=== PATIENT | male | born 1950 | race Caucasian/White ===

== ENCOUNTER → 2017-11-10 12:13 | Outpatient (CLI) | payer MEDICARE, SELFPAY ==
[2017-11-10 12:47] LABS: Abs Immature Grans 0.03 k/cumm (0.0-0.09); Absolute Basophil Count 0.01 k/cumm (0.0-0.2); Absolute Eosinophil Count 0.19 k/cumm (0.0-0.7); Absolute Lymphocyte Count 1.68 k/cumm (1.2-3.4); Absolute Monocyte Count 0.83 k/cumm (0.11-0.7); Absolute Neutrophil Count 5.58 k/cumm (1.2-6.7); Basophils % 0.1; Eosinophils % 2.3; HCT 46.5 % (40.0-50.0); HGB 15.8 g/dL (13.5-17.5); Immature Grans % 0.4; Lymphocytes % 20.2; Mean Corpuscular Hemoglobin 31.5 pg (27.0-33.0); Mean Corpuscular Volume 92.6 fL (80-95); Mean Platelet Volume 11.7 fL (8.0-11.0); Platelet Count 171 x1000/uL (130-400); RBC 5.02 m/cumm (4.50-6.00); RBC Distribution Width 13.6 % (11.8-14.1); White Blood Cell Count 8.32 k/cumm (4.4-10.8)
[2017-11-10 12:57] LABS: VALPROIC ACID 107.4 ug/mL (50-100)
[2017-11-10 13:45] LABS: ALT 54 U/L (12-78); AST 39 U/L (15-37); Albumin 3.6 g/dL (3.4-5.0); Alkaline Phosphatase 72 U/L (46-116); Anion Gap 9.9 mmol/L (3-11); BUN 17 mg/dL (7-18); Bilirubin, Total 0.3 mg/dL (0.2-1.0); CO2 26.1 mmol/L (21.0-32.0); CREATININE 1.24 mg/dL (0.70-1.30); Calcium 9.3 mg/dL (8.5-10.1); Chloride 103 mmol/L (98-107); Estimated GFR 58.51 (mL/min/1.73m2); Glucose 135 mg/dL (70-100); Potassium 4.3 mmol/L (3.5-5.1); Sodium 139 mmol/L (136-145); Total Protein 6.9 g/dL (6.4-8.2)
== END ==
PROVIDERS: Nurse Practitioner Psychiatric/Mental Health; PCP Family Medicine; Visit Provider Nurse Practitioner Family
DX: F31.13 Bipolar disorder, current episode manic without psychotic features, severe (principal); Z51.81 Encounter for therapeutic drug level monitoring; Z79.899 Other long term (current) drug therapy
CPT/HCPCS: 36415; 80053; 80164; 85025

== ENCOUNTER → 2017-11-26 09:47 | Outpatient (CLI) | payer MEDICARE, SELFPAY ==
[2017-11-26 10:16] LABS: VALPROIC ACID 65.1 ug/mL (50-100)
[2017-11-26 10:32] LABS: ALT 54 U/L (12-78); AST 33 U/L (15-37)
== END ==
PROVIDERS: PCP Family Medicine; Visit Provider Nurse Practitioner Family
DX: F31.13 Bipolar disorder, current episode manic without psychotic features, severe (principal); Z51.81 Encounter for therapeutic drug level monitoring; Z79.899 Other long term (current) drug therapy
CPT/HCPCS: 36415; 80164; 84450; 84460

== ENCOUNTER 2018-03-10 08:50 | Outpatient (CLI) | payer MEDICARE, SELFPAY ==
[2018-03-10 09:32] LABS: Abs Immature Grans 0.04 k/cumm (0.0-0.09); Absolute Basophil Count 0.03 k/cumm (0.0-0.2); Absolute Eosinophil Count 0.28 k/cumm (0.0-0.7); Absolute Lymphocyte Count 2.04 k/cumm (1.2-3.4); Absolute Monocyte Count 0.87 k/cumm (0.11-0.7); Basophils % 0.4; Eosinophils % 3.7; HCT 43.6 % (40.0-50.0); HGB 14.8 g/dL (13.5-17.5); Immature Grans % 0.5; Mean Corp. HGB Concentration 33.9 g/dL (32.0-36.0); Mean Corpuscular Hemoglobin 32.7 pg (27.0-33.0); Mean Corpuscular Volume 96.2 fL (80-95); Mean Platelet Volume 11.2 fL (8.0-11.0); Monocytes % 11.5; Neutrophils % 56.9; Platelet Count 123 x1000/uL (130-400); RBC 4.53 m/cumm (4.50-6.00); RBC Distribution Width 13.6 % (11.8-14.1); White Blood Cell Count 7.56 k/cumm (4.4-10.8)
[2018-03-10 09:45] LABS: VALPROIC ACID 99.7 ug/mL (50-100)
[2018-03-10 10:28] LABS: ALT 49 U/L (12-78); AST 34 U/L (15-37); Albumin 3.2 g/dL (3.4-5.0); Alkaline Phosphatase 62 U/L (46-116); Anion Gap 7.9 mmol/L (3-11); BUN 17 mg/dL (7-18); Bilirubin, Total 0.4 mg/dL (0.2-1.0); CO2 28.1 mmol/L (21.0-32.0); CREATININE 1.33 mg/dL (0.70-1.30); Calcium 8.9 mg/dL (8.5-10.1); Chloride 105 mmol/L (98-107); Glucose 85 mg/dL (70-100); Sodium 141 mmol/L (136-145); Total Protein 6.5 g/dL (6.4-8.2)
== END 2018-03-10 09:10 ==
PROVIDERS: PCP Family Medicine; Visit Provider Nurse Practitioner Family
DX: F31.13 Bipolar disorder, current episode manic without psychotic features, severe (principal); Z51.81 Encounter for therapeutic drug level monitoring; Z79.899 Other long term (current) drug therapy
CPT/HCPCS: 36415; 80053; 80164; 85025

== ENCOUNTER 2018-04-14 12:01 | Outpatient (CLI) | payer MEDICARE, SELFPAY ==
[2018-04-14 13:57] LABS: VALPROIC ACID 77.6 ug/mL (50-100)
== END 2018-04-14 12:21 ==
PROVIDERS: PCP Family Medicine; Visit Provider Nurse Practitioner Family
DX: F31.13 Bipolar disorder, current episode manic without psychotic features, severe (principal); Z79.899 Other long term (current) drug therapy; Z51.81 Encounter for therapeutic drug level monitoring
CPT/HCPCS: 36415; 80164

== ENCOUNTER 2018-11-10 13:32 | Outpatient (CLI) | payer MEDICARE, SELFPAY ==
[2018-11-10 14:10] LABS: VALPROIC ACID 101.2 ug/mL (50-100)
[2018-11-10 14:11] LABS: Abs Immature Grans 0.05 k/cumm (0.0-0.09); Absolute Basophil Count 0.03 k/cumm (0.0-0.2); Absolute Eosinophil Count 0.25 k/cumm (0.0-0.7); Absolute Lymphocyte Count 2.12 k/cumm (1.2-3.4); Absolute Monocyte Count 1.02 k/cumm (0.11-0.7); Basophils % 0.3; Eosinophils % 2.5; HCT 46.2 % (40.0-50.0); HGB 15.5 g/dL (13.5-17.5); Immature Grans % 0.5; Lymphocytes % 21.5; Mean Corp. HGB Concentration 33.5 g/dL (32.0-36.0); Mean Corpuscular Volume 95.5 fL (80-95); Mean Platelet Volume 11.6 fL (8.0-11.0); Monocytes % 10.3; Neutrophils % 64.9; Platelet Count 159 x1000/uL (130-400); RBC 4.84 m/cumm (4.50-6.00); RBC Distribution Width 13.5 % (11.8-14.1); White Blood Cell Count 9.87 k/cumm (4.4-10.8)
[2018-11-10 15:03] LABS: ALT 48 U/L (12-78); AST 36 U/L (15-37); Albumin 3.6 g/dL (3.4-5.0); Alkaline Phosphatase 78 U/L (46-116); Anion Gap 7.4 mmol/L (3-11); BUN 18 mg/dL (7-18); Bilirubin, Total 0.5 mg/dL (0.2-1.0); CO2 28.6 mmol/L (21.0-32.0); CREATININE 1.36 mg/dL (0.70-1.30); Calcium 9.1 mg/dL (8.5-10.1); Calculated LDL 147 mg/dL; Chloride 105 mmol/L (98-107); Cholesterol 226 mg/dL (50-200); Estimated GFR 52.43 (mL/min/1.73m2); Glucose 82 mg/dL (70-100); HDL Cholesterol 48 mg/dL (40-60); Potassium 4.5 mmol/L (3.5-5.1); Sodium 141 mmol/L (136-145); TSH 1.84 uIU/mL (0.36-3.74); Total Protein 6.8 g/dL (6.4-8.2); Triglyceride 156 mg/dL (30-150)
== END 2018-11-10 13:52 ==
PROVIDERS: PCP Family Medicine; Visit Provider Nurse Practitioner Family
DX: F31.13 Bipolar disorder, current episode manic without psychotic features, severe (principal); Z79.899 Other long term (current) drug therapy; Z51.81 Encounter for therapeutic drug level monitoring
CPT/HCPCS: 36415; 80053; 80061; 83721; 80164; 84443; 85025

== ENCOUNTER → 2018-11-21 13:49 | Outpatient (BNVA) | payer MEDICARE, SELFPAY | PROVIDERS: PCP Family Medicine; Referring Provider Family Medicine; Visit Provider Physical Therapy Assistant | DX: Z12.11 Encounter for screening for malignant neoplasm of colon (principal); Z86.010 Personal history of colon polyps ==

== ENCOUNTER 2018-11-30 13:55 | Outpatient (CLI) | payer MEDICARE, SELFPAY ==
[2018-11-30 14:22] LABS: Abs Immature Grans 0.03 k/cumm (0.0-0.09); Absolute Basophil Count 0.04 k/cumm (0.0-0.2); Absolute Eosinophil Count 0.32 k/cumm (0.0-0.7); Absolute Lymphocyte Count 2.08 k/cumm (1.2-3.4); Absolute Monocyte Count 0.88 k/cumm (0.11-0.7); Basophils % 0.4; Eosinophils % 3.6; HCT 46.9 % (40.0-50.0); HGB 15.7 g/dL (13.5-17.5); Immature Grans % 0.3; Lymphocytes % 23.2; Mean Corp. HGB Concentration 33.5 g/dL (32.0-36.0); Mean Corpuscular Volume 95.7 fL (80-95); Mean Platelet Volume 11.5 fL (8.0-11.0); Monocytes % 9.8; Neutrophils % 62.7; Platelet Count 183 x1000/uL (130-400); RBC Distribution Width 13.4 % (11.8-14.1); White Blood Cell Count 8.95 k/cumm (4.4-10.8)
[2018-11-30 14:34] LABS: VALPROIC ACID 65.5 ug/mL (50-100)
[2018-11-30 14:56] LABS: ALT 46 U/L (16-63); AST 27 U/L (15-37); Albumin 3.6 g/dL (3.4-5.0); Alkaline Phosphatase 74 U/L (46-116); Anion Gap 8.5 mmol/L (3-11); BUN 13 mg/dL (7-18); Bilirubin, Total 0.6 mg/dL (0.2-1.0); CO2 28.5 mmol/L (21.0-32.0); CREATININE 1.36 mg/dL (0.70-1.30); Calcium 9.1 mg/dL (8.5-10.1); Chloride 108 mmol/L (98-107); Estimated GFR 52.27 (mL/min/1.73m2); Glucose 91 mg/dL (70-100); Potassium 4.7 mmol/L (3.5-5.1); Sodium 145 mmol/L (136-145); Total Protein 6.8 g/dL (6.4-8.2)
== END 2018-11-30 14:15 ==
PROVIDERS: PCP Family Medicine; Visit Provider Nurse Practitioner Family
DX: F31.13 Bipolar disorder, current episode manic without psychotic features, severe (principal); Z51.81 Encounter for therapeutic drug level monitoring; Z79.899 Other long term (current) drug therapy
CPT/HCPCS: 36415; 80053; 85027; 80164; 85025

== ENCOUNTER 2018-12-08 08:03 | Day surgery (SDC) | payer MEDICARE, SELFPAY ==
[2018-12-08 08:32] VITALS: BP 140/80; PULSE 67; RESP 16; TEMP 36.3; O2SAT 98
[2018-12-08 08:50] VITALS: BP 140/80; PULSE 67; RESP 16; TEMP 36.3; O2SAT 98
[2018-12-08] MEDS: Lactated Ringers 1,000 ML 80 ML IV (09:10)
--- NOTE | 2018-12-08 11:15 | W.PM.DSUDISC ---
Discharge Plan Disposition Patient Disposition: HOME Condition: Good Discharge Details Reason For Visit: scope of colon Attending Provider: Chastity Weller Primary Care Provider: Jose Eduardo Barboza Home Meds and New Rx's Prescriptions: Continued quetiapine 300 mg tablet 300 mg PO HS RF: 0 quetiapine 400 mg tablet 400 mg PO HS Qty: 90 RF: 3 sildenafil (antihypertensive) 20 mg tablet 20 - 100 mg PO DAILY PRN (Reason: sexual activity) Qty: 30 RF: 5 Vraylar 1.5 mg capsule 1.5 mg PO HS RF: 0 divalproex 500 mg tablet extended release 24 hr 500 mg PO BID RF: 0 amlodipine 5 mg tablet 5 mg PO DAILY Qty: 90 RF: 3 Discontinued polyethylene glycol 3350 17 gram/dose powder 238 g PO ONCE Qty: 238 RF: 0 bisacodyl [Dulcolax (bisacodyl)] 5 mg tablet,delayed release (DR/EC) 5 mg PO ONCE Qty: 4 RF: 0 Discharge Instructions Instructions: Diverticulosis (ED), High Fiber Diet (ED) Additional Instructions: Findings: minor diverticula no polyps high fiber diet and avoid straing to move bowels Follow up: as needed do not require addition colon scopes unless you are having problems Please call if you develop: fevers >101.5 Nausea or Vomiting Abdominal pain that is not transient DAY SURGERY UNIT POST COLONOSCOPY INSTRUCTIONS 1. Because there will be medication in your system for the next 24 hours, you may feel a little sleepy. Your coordination will be affected. Therefore: a. Do not drive or operate dangerous equipment for 24 hours. b. Do not drink alcohol beverages for 24 hours (not even beer). c. Plan to go home and rest for the day. 2. Generally there are no restrictions on your activity after a day or so has gone by, but you may feel a bit fatigued for a few days. 3 After you arrive home you may have a light meal and return to a normal diet as you can tolerate it without feeling sick to your stomach. 4. After surgery, you may feel pain or discomfort. This should be only transient, but if it persists please contact your doctor. 5. If there are any questions regarding the findings of your procedure, please feel free to contact your doctor. 6. If you are unable to contact your doctor with a problem, contact the hospital at [phone]. 7. Continue all your regular medications unless directed otherwise. I understand the above instructions and have no questions. Signature of Patient or Responsible Adult Escort Date/Time Name of Responsible Adult Escort Signature of Nurse Date/Time Stand Alone Forms: Yanet Rivera (DSU) Discharge Orders Discharge Orders: Discharge Order (Routine); Ordered 12/08/18 Ordered By: Chastity Weller
--- NOTE | 2018-12-08 11:18 | W.COLOREPORT ---
Date of service: 12/08/18 Time of Service: 11:19 Colonoscopy Report Date of procedure: 12/08/18 Pre-op diagnosis general: screen Post-op diagnosis procedure note: other (minor divertic in sigmoid colon ) Procedure: CE Surgeon: Chastity Weller Anesthesia proc note operative: GETA Estimated blood loss (mL): 0 Pathology: none sent Complications: None Disposition: same day Retraction Time: 8 mins Procedure Description: Informed consent was obtained, explaining the risks and benefits of the procedure, including but not limited to bleeding, infection, perforation, aspiration, complications from the anesthesia. DESCRIPTION OF PROCEDURE: The patient was brought to the endoscopy suite and placed in left lateral decubitus position. Anesthesia was administered per the Department of Anesthesia, with constant monitoring of all vital signs. Digital rectal exam was performed prior to beginning the procedure and revealed no anal or rectal pathology. The previously lubricated Olympus was inserted in the rectum and insufflation was begun. The scope was passed up through the recto-sigmoid valves, through the sigmoid and transverse, down the ascending and the cecum was achieved at 90 cm. Good prep was noted. The scope was then withdrawn. There were few small scattered diverticula confined to the sigmoid colon w/ no signs of active bleeding or infection. The patient tolerated the procedure without complicated and transferred to the recovery room in stable condition. Colonoscopy should not be repeated unless pt is having problems.
[2018-12-08 11:55] VITALS: BP 125/62; PULSE 58; RESP 18; TEMP 36.2; O2SAT 98
== END 2018-12-08 12:35 | disposition home or self-care (01) ==
PROVIDERS: PCP Family Medicine; Visit Provider Surgery
PROC: 0DJD8ZZ Inspection of Lower Intestinal Tract, Via Natural or Artificial Opening Endoscopic (ICD-10-PCS; CPT 45378; principal; 2018-12-08 09:15)
DX: Z12.11 Encounter for screening for malignant neoplasm of colon (principal); Z87.19 Personal history of other diseases of the digestive system; K57.30 Diverticulosis of large intestine without perforation or abscess without bleeding; I10 Essential (primary) hypertension
CPT/HCPCS: 45378

== ENCOUNTER 2019-09-01 09:25 | Outpatient (CLI) | payer MEDICARE, SELFPAY ==
--- NOTE | 2019-09-01 13:20 | DI.CT_ITS ---
EXAM: CT SINUS WO CLINICAL HISTORY: sinus congestion, chronic, J34.89. Evaluate for sinusitis. TECHNIQUE: Imaging Protocol: Axial computed tomography images with coronal and sagittal reformatted images were created and reviewed. COMPARISON: No exams were available for comparison FINDINGS: Frontal sinuses: Normally aerated. Ethmoid air cells: Normally aerated. Maxillary sinuses: Normally aerated. Sphenoid sinus: Normally aerated. Ostiomeatal complexes: Patent. Osseous nasal septum: Slightly deviated toward the left. The nasal cavity is clear.. Visualized regional soft tissues: No acute findings. Orbits: Unremarkable. Bones: Unremarkable. Mastoid Air Cells: Normally aerated. The brain is grossly normal as visualized. IMPRESSION: No evidence acute or chronic sinusitis.. RADIATION DOSE DELIVERED: 138.73mGy.cm Total DLP DATA REPOSITORY: All CT scans at this facility are submitted to the National Radiology Data Registry (NRDR) Dose Index Registry (DIR) with the [employer] (ACR). RADIATION OPTIMIZATION: All CT scans at this facility use at least one of these dose optimization te chniques: automated exposure control; mA and/or kV adjustment per patient size (includes targeted exa ms where dose is matched to clinical indication); or iterative reconstruction.
== END 2019-09-01 09:45 ==
PROVIDERS: PCP Family Medicine; Visit Provider Family Medicine
DX: J34.89 Other specified disorders of nose and nasal sinuses (principal); J34.2 Deviated nasal septum
CPT/HCPCS: 70486

== ENCOUNTER 2019-09-08 03:13 | Outpatient (CLI) | payer MEDICARE, SELFPAY ==
[2019-09-08 07:54] LABS: Abs Immature Grans 0.08 k/cumm (0.0-0.09); Absolute Basophil Count 0.02 k/cumm (0.0-0.2); Absolute Lymphocyte Count 2.78 k/cumm (1.2-3.4); Absolute Monocyte Count 1.59 k/cumm (0.11-0.7); Basophils % 0.2; Eosinophils % 4.1; HGB 15.9 g/dL (13.5-17.5); Immature Grans % 0.7 %; Mean Corp. HGB Concentration 33.8 g/dL (32.0-36.0); Mean Corpuscular Hemoglobin 31.8 pg (27.0-33.0); Mean Platelet Volume 11.4 fL (8.0-11.0); Monocytes % 13.7; Neutrophils % 57.3; Platelet Count 217 x1000/uL (130-400); RBC Distribution Width 13.7 % (11.8-14.1); White Blood Cell Count 11.59 k/cumm (4.4-10.8)
[2019-09-08 07:56] LABS: VALPROIC ACID 71.8 ug/mL (50-100)
[2019-09-08 07:59] LABS: Absolute Eosinophil Count 0.48 k/cumm (0.0-0.7); Absolute Neutrophil Count 6.64 k/cumm (1.2-6.7)
[2019-09-08 08:40] LABS: Diff Comment Agrees w/ Instrument; RBC Morphology Normal
[2019-09-08 09:32] LABS: ALT 51 U/L (16-63); AST 21 U/L (15-37); Albumin 3.7 g/dL (3.4-5.0); Alkaline Phosphatase 59 U/L (46-116); Anion Gap 8.2 mmol/L (3-11); BUN 16 mg/dL (7-18); Bilirubin, Total 0.4 mg/dL (0.2-1.0); CO2 25.8 mmol/L (21.0-32.0); CREATININE 1.22 mg/dL (0.70-1.30); Calcium 8.9 mg/dL (8.5-10.1); Calculated LDL 115 mg/dL (<100); Chloride 107 mmol/L (98-107); Cholesterol 213 mg/dL (<200); Estimated GFR 59.25 (mL/min/1.73m2); Glucose 93 mg/dL (74-106); HDL Cholesterol 57 mg/dL (40-60); Potassium 4.3 mmol/L (3.5-5.1); Sodium 141 mmol/L (136-145); TSH 1.23 uIU/mL (0.36-3.74); Total Protein 6.6 g/dL (6.4-8.2); Triglyceride 205 mg/dL (<150)
== END 2019-09-08 03:33 ==
PROVIDERS: PCP Family Medicine; Visit Provider Nurse Practitioner Family
DX: F31.13 Bipolar disorder, current episode manic without psychotic features, severe (principal); Z79.899 Other long term (current) drug therapy; Z51.81 Encounter for therapeutic drug level monitoring
CPT/HCPCS: 36415; 80053; 80061; 80164; 84443; 85025

== ENCOUNTER → 2019-10-16 00:45 | Outpatient (CLI) | payer MEDICARE, SELFPAY ==
--- NOTE | 2019-10-16 12:14 | DI.US_ITS ---
APPROVED REPORT EXAM: Comprehensive 2D, Doppler, and color-flow Echocardiogram Patient Location: Out-Patient [facility] Worker: Chantel Washington RDCS (AE) Indications: SOB, HTN Other Information Study Quality: Adequate Conclusion Normal left ventricular wall thickness and chamber size. Estimated ejection fraction is 55 to 60%. There are no segmental wall motion abnormalities Left and right atrium are normal in size Right ventricle is normal in size and systolic function There is mild aortic valve sclerosis. The valve is trileaflet without stenosis or regurgitation Structurally normal mitral, pulmonic and tricuspid valves. Trace mitral, pulmonic and tricuspid regu rgitation Wall motion Left Ventricle The left ventricle is normal size. The left ventricular systolic function is normal. The left ventric ular ejection fraction is within the normal range. There is normal left ventricular wall thickness. L eft ventricular outflow tract gradient is present. There is normal LV segmental wall motion. There is no ventricular septal defect visualized. LVEF is 55%-60%. Right Ventricle The right ventricle is normal size. The RVSP is 21.7 mmHg. The right ventricular systolic function is normal. Atria The left atrium size is normal. The right atrium size is normal. The interatrial septum is intact wit h no evidence for an atrial septal defect. Aortic Valve Aortic valve is trileaflet. The Aortic valve is sclerotic. No hemodynamically significant valvular ao rtic stenosis. Mitral Valve The mitral valve is normal in structure. No evidence of mitral valve stenosis. Trace mitral regurgita tion. Tricuspid Valve The tricuspid valve is normal in structure. There is no tricuspid valve stenosis. Trace tricuspid reg urgitation. Pulmonic Valve The pulmonary valve is normal in structure. There is no pulmonic valvular stenosis. Trace pulmonic re gurgitation. Great Vessels The aortic root is normal in size. The ascending aorta is normal in size. Aortic arch is normal in ca liber. IVC is normal in size and collapses >50% with inspiration. Pericardium There is no pericardial effusion. 2D Dimensions IVSD d PLAX 1.11 cm M: 0.6-1.2 LV Vol A2C d MOD 157.0 mL LVPW d PLAX 1.10 cm M: 0.6 - 1.2 LV Vol A4C d MOD 95.1 mL LVID d PLAX 5.05 cm M: 4.2 - 5.8 LA vol/ BSA A2C s A-L 33.2 mL/m2 LVDs 3.45 cm M: 2.5 - 4.0 LA vol/ BSA A4C s A-L 29.4 mL/m2 Ao Root d 2.82 cm M: 3.1 - 3.7 LA Vol/ BSA Biplane s A-L 31.6 mL/m2 RA Area A4C 10.32 cm2 LA Area A4C s MOD 19.30 cm2 RA Vol/ BSA A4C s A-L 11.5 mL/m2 LA Area A2C s MOD 20.72 cm2 Ao Asc Diam d 2.96 cm M: 2.6 - 3.4 LV EF A4C MOD 54.7 % LV EF Teichholz 58.6 % LV EF A2C MOD 53.0 % LVEF (Marshall's) 54.63 % M: 52 - 72 LV EF Biplane MOD 54.6 % LV Volume 95.96 mL M: 62 - 150 SV 70.12 mL LV Volume Index 47.50 mL/m2 M: 34 - 74 SV Index 34.72 mL/m2 LV Vol Biplane MOD 128.4 mL FS 31.10 % M-Mode TAPSE 2.54 cm (M/F) >1.7 LV Diastology MV E' medial 0.056 (>0.07 m/s) E/A Ratio 0.7 LV E/e MED 11.25 (<14) MV E Vmax 0.63 (0.4-1.3 m/s) MV E' lateral 0.071 (>0.1 m/s) MV A Vmax 0.85 (0.4-1.3 m/s) LV E/e LAT 8.90 (<14) MV E/A Ratio 0.72 MV E/E' medial 11.28 MV E/E' lateral 8.94 Aortic Valve LVOT Area 3.22 cm2 AoV Area Vmax 2.98 cm2 LVOT Vmax 1.81 m/s AoV Area/ BSA (Vmax) 1.48 cm2/m2 LVOT Mean Sumanth. 1.14 m/s KARSTEN Mean Sumanth. 2.56 cm2 LVOT Peak Grad 13.1 mmHg KARSTEN Mean Sumanth. Index 1.27 cm2/m2 LVOT Mean Grad 6.1 mmHg LVOT VTI 0.356 m LVOT Diam s 2.00 cm AoV Vmax 1.96 m/s Velocity Ratio 0.92 AoV Mean Sumanth. 1.43 m/s AoV Peak Grad 15.3 mmHg LVOT SV 114.80 mL AoV Mean Grad 9.0 mmHg AoV VTI 0.396 m AoV Area VTI 2.90 cm2 AoV Area/ BSA (VTI) 1.44 cm/m2 Mitral Valve MV DT 301 (160-240 msec) MV PHT 87 msec MV Area PHT 2.52 cm2 Pulmonary Valve PV Vmax 1.82 (0.5-1.5 m/s) RVOT Peak Gr. 3.54 mmHg PV Peak Grad 13.3 mmHg RVOT Mean Gr. 1.80 mmHg PV Mean Grad 6.1 mmHg RVOT VTI 0.178 m PV VTI 0.289 m RVOT Vmax 0.94 m/s Tricuspid Valve TR Peak Grad 18.7 mmHg TR Vmax 2.16 m/s RA Pressure 3.00 mmHg RVSP (TR) 21.7 mmHg
== END ==
PROVIDERS: PCP Family Medicine; Visit Provider Family Medicine
DX: R06.02 Shortness of breath (principal); I10 Essential (primary) hypertension; R06.01 Orthopnea; I35.8 Other nonrheumatic aortic valve disorders; I36.1 Nonrheumatic tricuspid (valve) insufficiency
CPT/HCPCS: 93306

== ENCOUNTER 2019-11-25 11:02 | Emergency (ER) | payer MEDICARE, SELFPAY ==
[2019-11-25] VITALS (8 sets, daily range): BP systolic 150–178; BP diastolic 80–123; PULSE 78–91; RESP 15–19; TEMP 36.8; O2SAT 96–97
--- NOTE | 2019-11-25 11:00 | RT.EKG_ITS ---
APPROVED REPORT Exam: Resting ECG Patient Location: E HR:79 bpm ECG Measurements Heart Rate 79 AXIS WA 191 P 80 QRSd 111 QRS -63 QT 372 T 81 QTc 427 Conclusion Sinus rhythm...normal P axis, V-rate 60- 99 Left anterior fascicular block...axis(240,-40), init forces inf Left ventricular hypertrophy...multiple voltage criteria Nonspecific T abnormalities, lateral leads...T <-0.10mV, I aVL V5 V6 ST elevation, consider inferior injury...ST >0.08mV, II III aVF. Does not appear c/w STEMI. No acute change from previous EKG.
--- NOTE | 2019-11-25 11:05 | W.ED.GENAD ---
Discharge Plan Disposition Patient Disposition: HOME Condition: Stable Discharge Details Chief Complaint: SOB Clinical Impression: Chronic nasal congestion Primary Care Provider: Jose Eduardo Barboza ED Provider: Maude Vee Home Meds and New Rx's Prescriptions: Continued quetiapine 300 mg tablet 300 mg PO HS RF: 0 quetiapine 400 mg tablet 400 mg PO HS Qty: 90 RF: 3 prednisone 20 mg tablet 40 mg PO DAILY Qty: 10 RF: 0 prednisone 10 mg tablet 10 mg PO DAILY Qty: 30 RF: 2 Vraylar 1.5 mg capsule 1.5 mg PO HS RF: 0 divalproex 500 mg tablet extended release 24 hr 500 mg PO BID RF: 0 mometasone 50 mcg/actuation spray,non-aerosol 2 spray NICOLE DAILY Qty: 17 RF: 2 magnesium 250 mg tablet 250 mg PO DAILY Qty: 90 RF: 3 amlodipine 5 mg tablet 5 mg PO DAILY Qty: 90 RF: 3 Nasal Decongestant (pseudoeph) 30 mg capsule (abuse-resistant) 30 mg PO Q6H PRN (Reason: nasal congestion) Qty: 20 RF: 0 Discharge Instructions Instructions: Allergic Rhinitis (ED) Additional Instructions: Continue your Sudafed and nasal steroid as directed. You can try [id number] Vicks vapor rub under your nose or [id number] Afrin for no longer than [address] directed[address] Barboza and Monica Morataya's office on Wednesday to schedule a follow-up appointment for this week. Return immediately to the emergency department if you develop any worsening or new concerning symptoms. Discharge Data Discharge Physician: Maude Vee Medical Decision Making 69-year-old male with a history of bipolar disorder on multiple psychiatric medications and a history of chronic nasal congestion and sensation of obstruction when laying flat at night for the past several months. He has been seen by his PCP and had a negative sinus CT, unremarkable echocardiogram, and was referred to ENT which did not note any polyps and thought possibly his symptoms are due to seasonal allergies. states she mainly brought patient here because he is having difficulty with sleeping at night due to the sensation of nasal obstruction. Patient was brought back due to his initial complaint of shortness of breath on arrival to the ED, but he denies this and states he only feels nasal congestion. He denies any complaint of shortness of breath in his lungs, chest pain, cough, fever. An EKG was done on arrival notes a rate of 79, sinus with no STEMI or other acute ST-T wave changes. He appears to have no obstruction in his nares with breathing through his nose. His lungs are clear. His oxygen is normal. Patient is adamant that his only complaint is sensation of stuffy nose , worse when laying flat at night. Had long discussion with his over the phone that considering his other psychiatric medications, I am hesitant to give any benzodiazepines for sleep. He is advised that temporarily can use Vicks vapor rub or Afrin no longer than 3 days. Advised to call his PCP and Monicamirna Morataya's office on Wednesday for follow-up. His states that Monica presents here recently started Seroquel and Risperdal. Medical Records Medical records reviewed: Yes I reviewed the patient's medical records. ECG Data Attestation: I personally reviewed and interpreted this ECG (s) as follows: Interpretation: Rate of 79, sinus, left anterior fascicular block. No acute ST elevation or depression. No acute change from previous EKG. W[place] 191. QRS 111. QTc 427. HPI General Mode of arrival: ambulatory. Date/Time Provider Initiated Documentation: 11/25/19 11:04. Limitations to Documentation: no limitations. Information obtained by: patient. HPI Narrative: Patient is a 69-year-old male with a history of bipolar disorder on multiple psychiatric medications with a complaint of nasal congestion and sensation of obstruction for the past few months with worsening at night while sleeping causing difficulty to sleep over the last few days. Patient states when he lays flat at night he feels that his nose becomes more stuffed up and he has difficulty sleeping. Review of charts notes that patient has been seen by his PCP Dr. Barboza for this nasal obstruction feeling for which she had a negative sinus CT, unremarkable echocardiogram, and was referred to ENT with no evidence of polyps, and was diagnosed with possible allergies. He also has been treated with a nasal steroid, Sudafed and oral steroids without relief. Patient states he does feel that he is congested in his nose right now but that it is worse when he lays flat at night. He denies any sensation of shortness of breath in his lungs, chest pain, cough, fever. Related Data Home Medications Medication Instructions Recorded Confirmed quetiapine 300 mg tablet 300 mg PO HS tab 05/24/18 11/25/19 quetiapine 400 mg tablet 400 mg PO HS #90 tab-cap 05/24/18 11/25/19 cariprazine 1.5 mg capsule 1.5 mg PO HS cap 11/22/18 11/25/19 divalproex 500 mg tablet,extended 500 mg PO BID tab-cap 11/22/18 11/25/19 release 24 hr mometasone 50 mcg/actuation nasal 2 spray NICOLE DAILY #17 gm 02/08/19 11/25/19 spray prednisone 20 mg tablet 40 mg PO DAILY #10 tab 07/28/19 11/25/19 prednisone 10 mg tablet 10 mg PO DAILY #30 tab 08/22/19 11/25/19 amlodipine 5 mg tablet 5 mg PO DAILY #90 tab 10/05/19 11/25/19 pseudoephedrine HCl 30 mg capsule 30 mg PO Q6H PRN #20 cap 11/07/19 11/25/19 (abuse-resistant) magnesium 250 mg tablet 250 mg PO DAILY #90 tab 11/15/19 11/25/19 Previous Rx's Medication Instructions Recorded quetiapine 400 mg tablet 400 mg PO HS #90 tab-cap 05/24/18 mometasone 50 mcg/actuation nasal 2 spray NICOLE DAILY #17 gm 02/08/19 spray prednisone 20 mg tablet 40 mg PO DAILY #10 tab 07/28/19 prednisone 10 mg tablet 10 mg PO DAILY #30 tab 08/22/19 amlodipine 5 mg tablet 5 mg PO DAILY #90 tab 10/05/19 pseudoephedrine HCl 30 mg capsule 30 mg PO Q6H PRN #20 cap 11/07/19 (abuse-resistant) magnesium 250 mg tablet 250 mg PO DAILY #90 tab 11/15/19 Allergies Allergy/AdvReac Type Severity Reaction Status Date / Time bee pollen Allergy Severe swelling Unverified 11/25/19 11:14 Review of Systems All systems reviewed & are unremarkable except as noted in HPI and below Constitutional Constitutional: Reports as per HPI, Denies chills and Denies fever(s) Eyes Eyes: Denies blurry vision ENT Ears, Nose, Mouth, and Throat: Denies dizziness, Reports nasal congestion, Denies sore throat and Denies throat swelling Cardiovascular Cardiovascular: Denies chest pain and Denies dyspnea Respiratory Respiratory: Denies cough and Denies dyspnea Gastrointestinal Gastrointestinal: Denies abdominal pain, Denies diarrhea and Denies vomiting Genitourinary Genitourinary: Denies hematuria and Denies dysuria Musculoskeletal Musculoskeletal: Denies back pain and Denies numbness Integumentary/Breasts Skin/Breast: Denies lesions and Denies rash Neurologic Neurologic: Denies dizziness, Denies localized weakness and Denies numbness Allergic/Immunologic Allergic/Immunologic: Denies throat swelling [facility] Medical History (Updated 11/25/19 @ 12:01 by Maude Vee DO) Breathlessness (Acute) Congenital nasal septum deviation (Acute) Diverticula of colon (Acute) Essential hypertension (Acute) Nasal turbinate hypertrophy (Acute) Neural hearing loss, bilateral (Acute) Surgical History History of colonoscopy (Chronic) History of orchiectomy, unilateral (Acute) left Family History Mother , 73 Depression Father , 61 Kidney malignancy Heart disease Hyperlipidemia Hypertension Sister No problems noted. Sister No problems noted. Sister Heart disease Hyperlipidemia Hypertension Sister No problems noted. Sister No problems noted. Brother Heart disease Brother , 48 Heart disease Hyperlipidemia Hypertension Maternal Grandfather , 64 Heart disease Hyperlipidemia Hypertension Paternal Grandfather , 56 Heart disease Hyperlipidemia Hypertension Maternal Grandmother , 70 Asthma Stroke Paternal Grandmother , 80 No problems noted. Son No problems noted. Daughter No problems noted. Social History Smoking/Tobacco Use Status: Former Tobacco Use Quit Date: 08/03/18 Quit status: has quit before Alcohol Intake: current Alcohol Intake frequency: holidays/special occasions only Alcohol type: hard liquor Drug use: Never Substance use type: does not use Caregiver/Support person: No Household members: spouse Housing: house Pets and animals: No Sexually active: Yes Do you think of yourself as: straight/heterosexual Current gender identity: male What is your relationship status?: How often do you talk on the phone with friends or family?: twice per week How often do you get together with friends or relatives?: twice per week How often do you attend judaism or orthodoxy services?: 4 or more times per year Do you belong to any clubs or organized social groups?: no Panel score (0-1 are the most socially isolated patients): 3 What type of physical activity do you participate in: walking Duration: 15-30 minutes/day Frequency: daily Eloisa/Cheondoism: Baptist Special eloisa needs: No Do you feel safe at home: Yes Do you feel safe in your relationship?: Yes Exam Const General: cooperative Orientation: alert, awake and oriented x3 HENMT Head: normal to inspection Ears: hearing grossly normal bilaterally, external ears normal and TM's normal bilaterally General nose exam: external nose normal Face and sinus: normal facial exam Mouth: oral mucosae normal Teeth and gingiva: dentition normal Throat: posterior oropharynx normal Eyes General: appearance normal, both eyes and all related structures Eyelids: eyelids normal Pupils: PERRL EOM: EOM intact bilaterally Neck Neck: normal visual inspection Lymphatic: no lymphadenopathy noted Chest Chest: normal inspection of the chest Resp Effort & Inspection: normal respiratory effort and able to speak in complete sentences Auscultation: clear to auscultation bilaterally Cardio Rate: regular rate Rhythm: regular rhythm GI Inspection: normal to inspection Palpation: soft, not firm, no guarding, no hepatosplenomegaly, no masses and nontender Auscultation: normal bowel sounds Skin General skin exam: no rashes or lesions noted Neuro General: patient alert and patient awake Cognition: normal cognition Speech: speech normal Gait: normal gait Motor: muscle tone normal throughout Sensory Exam: no sensory deficits noted Extrem General: normal to inspection, full ROM and capillary refill normal Psych Appearance: grossly normal Mental Status: mental status grossly normal Speech and Movement: speech and movement normal Affect: blunted Attitude: cooperative Thought Process: normal
== END 2019-11-25 12:13 | disposition home or self-care (01) ==
PROVIDERS: Emergency Provider Physician Assistant; PCP Family Medicine
DX: R09.81 Nasal congestion (principal); F31.9 Bipolar disorder, unspecified; G47.9 Sleep disorder, unspecified; I10 Essential (primary) hypertension
CPT/HCPCS: 36415; 80053; 93005; 99284; 83735; 83880; 84484; 85025; 93010; 99285

== ENCOUNTER 2019-12-04 08:28 | Outpatient (CLI) | payer MEDICARE, SELFPAY ==
[2019-12-04 09:18] LABS: Abs Immature Grans 0.02 10^3/uL (0.0-0.06); Absolute Basophil Count 0.02 10^3/uL (0.0-0.2); Absolute Eosinophil Count 0.26 10^3/uL (0.0-0.7); Absolute Lymphocyte Count 1.87 10^3/uL (1.2-3.4); Absolute Monocyte Count 1.05 10^3/uL (0.1-0.8); Absolute Neutrophil Count 5.89 10^3/uL (1.2-6.7); Basophils % 0.2; Eosinophils % 2.9; HCT 46.1 % (40.0-50.0); HGB 15.5 g/dL (13.5-17.5); Immature Grans % 0.2; Lymphocytes % 20.5; MCH 31.4 pg (27.0-33.0); MCHC 33.6 % (32.0-36.0); MCV 93.3 fL (80-95); MPV 11.6 fL (8.0-11.0); Monocytes % 11.5; Neutrophils % 64.7; Nucleated RBC 0 %; Platelet Count 212 10^3/uL (130-400); RBC 4.94 10^6/uL (4.36-5.78); RDW 12.4 % (11.8-14.1); RDW-SD 42.8 fL; WBC 9.11 10^3/uL (4.4-10.8)
[2019-12-04 09:31] LABS: VALPROIC ACID 87.2 ug/mL (50-100)
[2019-12-04 09:40] LABS: ALT 50 U/L (16-63); AST 32 U/L (15-37); Albumin 3.9 g/dL (3.4-5.0); Alkaline Phosphatase 61 U/L (46-116); Anion Gap 7.2 mmol/L (3-11); BUN 14 mg/dL (7-18); Bilirubin, Total 0.6 mg/dL (0.2-1.0); CO2 27.8 mmol/L (21.0-32.0); CREATININE 1.32 mg/dL (0.70-1.30); Calcium 9.2 mg/dL (8.5-10.1); Chloride 109 mmol/L (98-107); Estimated GFR 53.94 (mL/min/1.73m2); Glucose 100 mg/dL (74-106); Sodium 144 mmol/L (136-145); TSH 0.75 uIU/mL (0.36-3.74); Total Protein 7.2 g/dL (6.4-8.2)
== END 2019-12-04 08:48 ==
PROVIDERS: PCP Family Medicine; Visit Provider Family Medicine
DX: F31.13 Bipolar disorder, current episode manic without psychotic features, severe (principal); Z79.899 Other long term (current) drug therapy; F41.9 Anxiety disorder, unspecified; Z51.81 Encounter for therapeutic drug level monitoring
CPT/HCPCS: 36415; 80053; 80164; 84443; 85025

== ENCOUNTER 2019-12-08 17:52 | Inpatient (IN) | payer MEDICARE, SELFPAY ==
--- NOTE | 2019-12-08 18:00 | ED.GENADUL_ITS ---
Discharge Plan Disposition Patient Disposition: [facility] INPATIENT Condition: Stable Discharge Details Chief Complaint: GenMedical Clinical Impression: Altered mental status, Confusion, Taking multiple medications for chronic disease Admit Date/Time: 12/09/19 13:55 Admit Provider: London Bland Attending Provider: London Bland Primary Care Provider: Jose Eduardo Barboza ED Provider: Maude Vee Discharge Data Discharge Date/Time-TO BE ENTERED AT DEPARTURE: 12/08/19 21:05 Medical Decision Making 1800 -- 69-year-old male with history of bipolar disorder, hypertension, chronic nasal congestion presents for confusion, difficulty walking, joint pain and urinary incontinence thought to be due to recent psychiatric medications. Sent by [facility] for placement for medication management and adjustment. No SI or HI. No alcohol or drugs. No report of trauma or fever. Vitals within normal limits. Patient appears with a flat affect and masklike facies consistent with previous ED visits. He appears nontoxic. He is oriented x3. He admits to chronic nasal congestion but denies any fever, headache, dizziness, chest pain, abdominal pain. He has no focal deficits. He appears to be breathing normally. Patient referred for labs and CT head and all reviewed and negative and patient medically cleared. Case discussed with Carol from [facility] who will evaluate patient through zoom at bedside. Patient will likely not find placement tonight. Will admit here for observation overnight while awaiting placement. 1900 -- Case discussed with Dr. Lindsay who accepts patient for admission. Case also discussed with patient's Sisi who is agreeable with plan. Medical Records Medical records reviewed: Yes I reviewed the patient's medical records. Imaging Data Radiologic Study: Radiologist's impression: CT Head Without Contrast Exam date and time: 12/08/2019 7:01 PM Age: 69 years old Clinical indication: Altered mental status/memory loss and speech disturbance TECHNIQUE: Imaging protocol: Computed tomography of the head without contrast. Radiation optimization: All CT scans at this facility use at least one of these dose optimization techniques: automated exposure control; mA and/or kV adjustment per patient size (includes targeted exams where dose is matched to clinical indication); or iterative reconstruction. COMPARISON: No relevant prior studies available. FINDINGS: Brain: There are mild confluent periventricular hypodensities consistent with chronic microischemic changes of white matter. There is no evidence of acute intracranial hemorrhage or mass effect on the ventricular system. There are no extra-axial fluid collections or midline shift. The posterior fossa appears unremarkable. Ventricles: There are mild ventriculomegaly and prominent sulci. The 4th ventricle is in the midline. Bones/joints: There is nasal septal deviation to the left of 11 mm with a left lateral spur. Sinuses: Visualized sinuses are unremarkable. No fluid levels. Mastoid air cells: Visualized mastoid air cells are well aerated. Soft tissues: Unremarkable. IMPRESSION: 1. Involutional changes of the brain and minimal chronic white matter ischemic changes. 2. No acute intracranial abnormality. Lab Data Lab results reviewed: Yes I reviewed the patient's lab results. Labs: Laboratory Tests Range/Units 12/08/19 12/08/19 12/08/19 18:26 18:26 18:37 WBC (4.4-10.8) 10^3/uL 11.76 H RBC (4.36-5.78) 10^6/uL 4.67 Hgb (13.5-17.5) g/dL 14.8 Hct (40.0-50.0) % 43.6 MCV (80-95) fL 93.4 MCH (27.0-33.0) pg 31.7 MCHC (32.0-36.0) % 33.9 RDW (11.8-14.1) % 12.7 Plt Count (130-400) 10^3/uL 208 MPV (8.0-11.0) fL 11.7 H Immature Gran % 0.3 Neutrophils % 62.0 Lymphocytes % 19.8 Monocytes % 12.7 Eosinophils % 4.8 Basophils % 0.4 Nucleated RBC % % 0 Absolute Neutrophils (1.2-6.7) 10^3/uL 7.29 H Absolute Lymphocytes (1.2-3.4) 10^3/uL 2.33 Absolute Monocytes (0.1-0.8) 10^3/uL 1.49 H Absolute Eosinophils (0.0-0.7) 10^3/uL 0.56 Absolute Basophils (0.0-0.2) 10^3/uL 0.05 Sodium (136-145) mmol/L 143 Potassium (3.5-5.1) mmol/L 3.7 Chloride (98-107) mmol/L 108 H Carbon Dioxide (21.0-32.0) mmol/L 26.6 Anion Gap (3-11) mmol/L 8.4 BUN (7-18) mg/dL 15 Creatinine (0.70-1.30) mg/dL 1.23 Estimated GFR/1.73 m2 (mL/min/1.73m2) 58.52 Glucose (74-106) mg/dL 95 Calcium (8.5-10.1) mg/dL 9.3 Total Bilirubin (0.2-1.0) mg/dL 0.4 AST (15-37) U/L 33 ALT (16-63) U/L 48 Alkaline Phosphatase (46-116) U/L 52 Total Protein (6.4-8.2) g/dL 6.3 L Albumin (3.4-5.0) g/dL 3.4 Urine Color (Yellow) Urine Clarity (Clear) Urine pH (5-8) Ur Specific [place] (1.005-1.025) Urine Protein (Negative) mg/dL Urine Ketones (Negative) mg/dL Urine Blood (Negative) Urine Nitrite (Negative) Urine Bilirubin (Negative) Urine Urobilinogen (Up TO 0.2) EU/dL Ur Leukocyte Esterase (Negative) Urine RBC (0-2) HPF Urine WBC (0-5) HPF Ur Epithelial Cells (Negative) HPF Urine Crystals (Negative) HPF Urine Bacteria (Negative) HPF Urine Mucus (Negative) Ur Culture Indicated? Urine Glucose (Negative) mg/dL Urine Opiates Screen (Negative) Negative Urine Methadone Screen (Negative) Negative Ur Barbiturates Screen (Negative) Negative Ur Tricyclics Screen (Negative) Negative Ur Amphetamines Screen (Negative) Negative U Benzodiazepines Scrn (Negative) Negative Urine Cocaine Screen (Negative) Negative Ur THC Screen (Negative) Negative Ethyl Alcohol (<3) mg/dL < 3.0 Range/Units 12/08/19 18:37 WBC (4.4-10.8) 10^3/uL RBC (4.36-5.78) 10^6/uL Hgb (13.5-17.5) g/dL Hct (40.0-50.0) % MCV (80-95) fL MCH (27.0-33.0) pg MCHC (32.0-36.0) % RDW (11.8-14.1) % Plt Count (130-400) 10^3/uL MPV (8.0-11.0) fL Immature Gran % Neutrophils % Lymphocytes % Monocytes % Eosinophils % Basophils % Nucleated RBC % % Absolute Neutrophils (1.2-6.7) 10^3/uL Absolute Lymphocytes (1.2-3.4) 10^3/uL Absolute Monocytes (0.1-0.8) 10^3/uL Absolute Eosinophils (0.0-0.7) 10^3/uL Absolute Basophils (0.0-0.2) 10^3/uL Sodium (136-145) mmol/L Potassium (3.5-5.1) mmol/L Chloride (98-107) mmol/L Carbon Dioxide (21.0-32.0) mmol/L Anion Gap (3-11) mmol/L BUN (7-18) mg/dL Creatinine (0.70-1.30) mg/dL Estimated GFR/1.73 m2 (mL/min/1.73m2) Glucose (74-106) mg/dL Calcium (8.5-10.1) mg/dL Total Bilirubin (0.2-1.0) mg/dL AST (15-37) U/L ALT (16-63) U/L Alkaline Phosphatase (46-116) U/L Total Protein (6.4-8.2) g/dL Albumin (3.4-5.0) g/dL Urine Color (Yellow) Yellow Urine Clarity (Clear) Clear Urine pH (5-8) 7.0 Ur Specific [place] (1.005-1.025) 1.010 Urine Protein (Negative) mg/dL Negative Urine Ketones (Negative) mg/dL Negative Urine Blood (Negative) Trace-intact H Urine Nitrite (Negative) Negative Urine Bilirubin (Negative) Negative Urine Urobilinogen (Up TO 0.2) EU/dL 0.2 Ur Leukocyte Esterase (Negative) Negative Urine RBC (0-2) HPF 0-2 Urine WBC (0-5) HPF Negative Ur Epithelial Cells (Negative) HPF Negative Urine Crystals (Negative) HPF Negative Urine Bacteria (Negative) HPF Negative Urine Mucus (Negative) Negative Ur Culture Indicated? No Urine Glucose (Negative) mg/dL Negative Urine Opiates Screen (Negative) Urine Methadone Screen (Negative) Ur Barbiturates Screen (Negative) Ur Tricyclics Screen (Negative) Ur Amphetamines Screen (Negative) U Benzodiazepines Scrn (Negative) Urine Cocaine Screen (Negative) Ur THC Screen (Negative) Ethyl Alcohol (<3) mg/dL HPI General Mode of arrival: wheelchair . Date/Time Provider Initiated Documentation: 12/08/19 17:57 . Limitations to Documentation: no limitations . Information obtained by: patient and family . HPI Narrative: Patient is a 69-year-old male with a history of bipolar disorder, persistent mood disorder, hypertension, insomnia due to chronic nasal congestion presents by mental health for placement for medication management of his psychiatric medications that are thought to be causing confusion, difficulty walking, joint pain and urinary incontinence over the past 10 days. Case discussed with patient's who states that his Seroquel, Vraylar, and Risperdal which he has been taking for the past few months were recently stopped by Monica Morataya and changed to Valium and Rexulti for concern for causing the above-mentioned symptoms. states that patient appears to have joint pain when he is walking and at times appears confused. He has a chronic flat affect, but per Carol this appeared to be worse this week. states that he has been eating at his baseline and denies any fever, alcohol, drugs, suicidal homicidal ideation. She states that his urinary incontinence often is due to times of difficulty making it to the bathroom in time. She states a few nights ago he woke up with urine all over the bed. He also has a history of chronic nasal congestion which he describes as difficulty breathing for which she has seen ENT and had nasal endoscopy which was negative for any polyps or other obstruction. She states he has not yet had a sleep study. Related Data Home Medications Medication Instructions Recorded Confirmed divalproex 500 mg tablet,extended 500 mg PO BID tab-cap 11/22/18 12/08/19 release 24 hr amlodipine 5 mg tablet 5 mg PO DAILY #90 tab 10/05/19 12/08/19 magnesium 250 mg tablet 250 mg PO DAILY #90 tab 11/15/19 12/08/19 brexpiprazole [Rexulti] 1 mg PO QHS 12/08/19 12/08/19 diazepam [Valium] 2 mg PO BID PRN PRN 12/08/19 12/08/19 Previous Rx's Medication Instructions Recorded amlodipine 5 mg tablet 5 mg PO DAILY #90 tab 10/05/19 magnesium 250 mg tablet 250 mg PO DAILY #90 tab 11/15/19 Allergies Allergy/AdvReac Type Severity Reaction Status Date / Time bee pollen Allergy Severe swelling Unverified 12/08/19 18:09 General SALINA: 2 Review of Systems All systems reviewed & are unremarkable except as noted in HPI and below Constitutional Constitutional: Reports as per HPI, Denies chills and Denies fever(s) Eyes Eyes: Denies blurry vision ENT Ears, Nose, Mouth, and Throat: Denies dizziness, Denies sore throat and Denies throat swelling Cardiovascular Cardiovascular: Denies chest pain and Denies dyspnea Respiratory Respiratory: Denies cough and Denies dyspnea Gastrointestinal Gastrointestinal: Denies abdominal pain, Denies diarrhea and Denies vomiting Genitourinary Genitourinary: Denies hematuria and Denies dysuria Musculoskeletal Musculoskeletal: Reports abnormal gait, Denies back pain, Reports arthralgias and Denies numbness Integumentary/Breasts Skin/Breast: Denies lesions and Denies rash Neurologic Neurologic: Reports abnormal gait, Reports confusion, Denies dizziness, Denies localized weakness and Denies numbness Psychiatric Psychiatric: Reports confusion Allergic/Immunologic Allergic/Immunologic: Denies throat swelling [facility] Medical History (Updated 12/10/19 @ 01:02 by Maude Vee DO) Bipolar disorder (Chronic) Breathlessness (Acute) Congenital nasal septum deviation (Acute) Diverticula of colon (Acute) Essential hypertension (Chronic) Nasal turbinate hypertrophy (Acute) Neural hearing loss, bilateral (Acute) Surgical History History of colonoscopy (Chronic) History of orchiectomy, unilateral (Acute) left Family History Mother , 73 Depression Father , 61 Kidney malignancy Heart disease Hyperlipidemia Hypertension Sister No problems noted. Sister No problems noted. Sister Heart disease Hyperlipidemia Hypertension Sister No problems noted. Sister No problems noted. Brother Heart disease Brother , 48 Heart disease Hyperlipidemia Hypertension Maternal Grandfather , 64 Heart disease Hyperlipidemia Hypertension Paternal Grandfather , 56 Heart disease Hyperlipidemia Hypertension Maternal Grandmother , 70 Asthma Stroke Paternal Grandmother , 80 No problems noted. Son No problems noted. Daughter No problems noted. Social History (Reviewed 12/08/19 @ 22:06 by London Trinidad Smoking/Tobacco Use Status: Former Tobacco Use Quit Date: 08/03/18 Quit status: has quit before Alcohol Intake: current Alcohol Intake frequency: holidays/special occasions only Alcohol type: hard liquor Drug use: Never Substance use type: does not use Caregiver/Support person: No Household members: spouse Housing: house Pets and animals: No Sexually active: Yes Do you think of yourself as: straight/heterosexual Current gender identity: male What is your relationship status?: How often do you talk on the phone with friends or family?: twice per week How often do you get together with friends or relatives?: twice per week How often do you attend pentecostalism or restoration services?: 4 or more times per year Do you belong to any clubs or organized social groups?: no Panel score (0-1 are the most socially isolated patients): 3 What type of physical activity do you participate in: walking Duration: 15-30 minutes/day Frequency: daily Eloisa/Yarsani: Scientologist Special eloisa needs: No Do you feel safe at home: Yes Do you feel safe in your relationship?: Yes Exam Const General: cooperative and no acute distress Orientation: alert, awake and oriented x3 HENMT Head: normal to inspection Ears: hearing grossly normal bilaterally and external ears normal General nose exam: external nose normal Face and sinus: normal facial exam Mouth: mucous membranes dry Teeth and gingiva: dentition normal Throat: posterior oropharynx normal Eyes General: appearance normal, both eyes and all related structures Eyelids: eyelids normal Pupils: PERRL EOM: EOM intact bilaterally Neck Neck: normal visual inspection Lymphatic: no lymphadenopathy noted Chest Chest: normal inspection of the chest Resp Effort & Inspection: normal respiratory effort and able to speak in complete sentences Auscultation: clear to auscultation bilaterally Cardio Rate: regular rate Rhythm: regular rhythm GI Inspection: normal to inspection Palpation: soft, not firm, no guarding, no hepatosplenomegaly, no masses and nontender Auscultation: normal bowel sounds Back/Spine/Pelvis Thoracic/Lumbar Spine: thoracic and lumbar spine normal to inspection Skin General skin exam: no rashes or lesions noted Neuro General: patient alert and patient awake Cranial Nerves: CN's II-XI intact bilaterally Cognition: normal cognition Speech: speech normal Gait: normal gait Motor: muscle tone normal throughout and strength 5/5 throughout Sensory Exam: no sensory deficits noted Extrem General: normal to inspection, full ROM and capillary refill normal Left lower extremity: lower leg Details: abrasion (1 x 4 cm, linear, distal anterior leg) Psych Appearance: disheveled Mental Status: mental status grossly normal Speech and Movement: speech and movement normal Affect: blunted Thought Process: normal
[2019-12-08 18:01] VITALS: BP 150/78; PULSE 62; RESP 17; TEMP 36.2; O2SAT 96
[2019-12-08 18:30] LABS: Abs Immature Grans 0.03 10^3/uL (0.0-0.06); Absolute Basophil Count 0.05 10^3/uL (0.0-0.2); Absolute Lymphocyte Count 2.33 10^3/uL (1.2-3.4); Absolute Monocyte Count 1.49 10^3/uL (0.1-0.8); Absolute Neutrophil Count 7.29 10^3/uL (1.2-6.7); Basophils % 0.4; Eosinophils % 4.8; HCT 43.6 % (40.0-50.0); HGB 14.8 g/dL (13.5-17.5); Immature Grans % 0.3; Lymphocytes % 19.8; MCH 31.7 pg (27.0-33.0); MCHC 33.9 % (32.0-36.0); MCV 93.4 fL (80-95); MPV 11.7 fL (8.0-11.0); Monocytes % 12.7; Nucleated RBC 0 %; Platelet Count 208 10^3/uL (130-400); RBC 4.67 10^6/uL (4.36-5.78); RDW 12.7 % (11.8-14.1); RDW-SD 43.6 fL; WBC 11.76 10^3/uL (4.4-10.8)
[2019-12-08 18:31] LABS: Absolute Eosinophil Count 0.56 10^3/uL (0.0-0.7)
[2019-12-08 18:46] LABS: ALT 48 U/L (16-63); AST 33 U/L (15-37); Albumin 3.4 g/dL (3.4-5.0); Alkaline Phosphatase 52 U/L (46-116); Anion Gap 8.4 mmol/L (3-11); BUN 15 mg/dL (7-18); Bilirubin, Total 0.4 mg/dL (0.2-1.0); CO2 26.6 mmol/L (21.0-32.0); CREATININE 1.23 mg/dL (0.70-1.30); Calcium 9.3 mg/dL (8.5-10.1); Chloride 108 mmol/L (98-107); Estimated GFR 58.52 (mL/min/1.73m2); Glucose 95 mg/dL (74-106); Potassium 3.7 mmol/L (3.5-5.1); Sodium 143 mmol/L (136-145); Total Protein 6.3 g/dL (6.4-8.2)
[2019-12-08 18:48] LABS: Bilirubin Negative (Negative); Blood Trace-intact (Negative); Clarity Clear (Clear); Glucose Negative (Negative); Ketones Negative (Negative); Leukocyte Esterase Negative (Negative); Nitrite Negative (Negative); Urobilinogen 0.2 EU/dL (Up TO 0.2)
[2019-12-08 18:59] LABS: ETHANOL BLOOD < 3.0 mg/dL (<3)
--- NOTE | 2019-12-08 19:01 | DI.CT_ITS ---
EXAM: CT HEAD WO CLINICAL HISTORY: slow speech, altered mental status, r/o acute dz. TECHNIQUE: Imaging Protocol: Axial computed tomography images with coronal and sagittal reformatted images were created and reviewed COMPARISON: CT CT SINUS WO from 09/01/2019 FINDINGS: Ventricles and Extra axial spaces: Normal in size and morphology for the patient's age. Hemorrhage: None. Cerebral parenchyma: Atrophy. White matter changes consistent with small vessel disease. Midline shift: None. Brainstem/Cerebellum: Normal. Calvarium: Normal. Visualized Paranasal sinuses/Mastoids: Clear. IMPRESSION: No acute abnormality. RADIATION DOSE DELIVERED: Total DLP Total DLP DATA REPOSITORY: All CT scans at this facility are submitted to the National Radiology Data Registry (NRDR) Dose Index Registry (DIR) with the [employer] (ACR). RADIATION OPTIMIZATION: All CT scans at this facility use at least one of these dose optimization te chniques: automated exposure control; mA and/or kV adjustment per patient size (includes targeted exa ms where dose is matched to clinical indication); or iterative reconstruction.
[2019-12-08 19:02] LABS: *AMPHETAMINES SCREEN URINE Negative (Negative); *BARBITURATES SCREEN URINE Negative (Negative); *BENZODIAZEPINES SCREEN URINE Negative (Negative); Cannabinoids THC Negative (Negative); Cocaine Screen,Urine Negative (Negative); METHADONE URINE SCREEN Negative (Negative); OPIATES URINE SCREEN Negative (Negative)
[2019-12-08 19:03] LABS: Tricyclic Antidepressants Negative (Negative)
[2019-12-08 19:07] LABS: Bacteria Negative HPF (Negative); C & S Indicated? No; Crystals Negative HPF (Negative); Epithelial Cells Negative HPF (Negative); Mucus Negative (Negative); RBC 0-2 HPF (0-2); WBC Negative HPF (0-5)
[2019-12-08 19:24] VITALS: RESP 18
--- NOTE | 2019-12-08 19:27 | DI.VRAD_ITS ---
PROCEDURE INFORMATION: Exam: CT Head Without Contrast Exam date and time: 12/08/2019 7:01 PM Age: 69 years old Clinical indication: Altered mental status/memory loss and speech disturbance TECHNIQUE: Imaging protocol: Computed tomography of the head without contrast. Radiation optimization: All CT scans at this facility use at least one of these dose optimization techniques: automated exposure control; mA and/or kV adjustment per patient size (includes targeted exams where dose is matched to clinical indication); or iterative reconstruction. COMPARISON: No relevant prior studies available. FINDINGS: Brain: There are mild confluent periventricular hypodensities consistent with chronic microischemic changes of white matter. There is no evidence of acute intracranial hemorrhage or mass effect on the ventricular system. There are no extra-axial fluid collections or midline shift. The posterior fossa appears unremarkable. Ventricles: There are mild ventriculomegaly and prominent sulci. The 4th ventricle is in the midline. Bones/joints: There is nasal septal deviation to the left of 11 mm with a left lateral spur. Sinuses: Visualized sinuses are unremarkable. No fluid levels. Mastoid air cells: Visualized mastoid air cells are well aerated. Soft tissues: Unremarkable. IMPRESSION: 1. Involutional changes of the brain and minimal chronic white matter ischemic changes. 2. No acute intracranial abnormality. Dictated and Authenticated by: Eric Lopez MD. Ordering:TALIA Santoro MD
--- NOTE | 2019-12-08 19:58 | NUR.NOTE ---
Stood to void at bedside with 1 assist, pt is shaky. plan for admission. MELANIE pena via ipad.
--- NOTE | 2019-12-08 20:27 | PDOC.MHCN ---
Date of service: 12/08/19 Time of Service: 20:28 Mental Health Crisis Note Presenting Issue How did you arrive at the ED and why did you come: Sebas arrived to the ER via either/and his and daughter after daughter called [facility] reporting that they feel they can not keep him safe. Not because of behavioral issues but rather he is unsteady on his feet, incontinent day and night and not feeling well. Precipitating Factors Sebas denied SI and HI. He is not showing any signs of delusions. Disposition BEHAVIOR: Sebas is pleasant and cooperative. His insight and judgment seem to be skewed possibly by his physical complaints and hx of ER visits I can't breathe. EYE CONTACT: Eye contact is poor but could be related to age, physical complaints and/or confusion as to why he is there. Either way he is not safe to return home at this time. MOOD: His mood appears depressed and anxious for sleep. AFFECT: Sebas's affect appears blunted and confused. APPETITE: Sebas reports that he does not have an appetite but that he is eating as his cares for him and he eats what she provides. SLEEP(trouble falling/staying asleep: Sebas reports that his sleep is poor. I need to sleep. Plan A huddle was had with Cony, Nurse ambulance operations supervisor and Catherine Aguilera, research laboratory manager via phone and we agree that he does not have a hx of dangerous behaviors so a CPSO is not needed for just him alone. He does need some sort of supervision so one CPSO will be shared with him from another room. This clinician will see Sebas tomorrow face to face as he may respond better this way. At this time we will see if he in fact needs a MH placement or if this is possibly just medical. Provisional Diagnosis Bipolar I with recent manic episode Signature Clinician's Name/Title: Carol Hale, , [facility] Emergency Services Clinician
[2019-12-08 20:35] VITALS: BP 168/82; PULSE 65; O2SAT 97
--- NOTE | 2019-12-08 21:23 | W.PM.HP.N ---
Date of service: 12/08/19 Time of Service: 21:23 Assessment and Plan Assessment and plan (1) Bipolar disorder: Status: Chronic Assessment and plan: Continue current medications including Depakote and Rexulti and as needed use of Valium. Refer for inpatient psychiatric care for further adjustment of his medications. Consider neurologic consultation for evaluation of parkinsonian tremors. This may be also exacerbating his ambulatory dysfunction. Qualifiers: Active/Remission status: currently active Current bipolar episode type: depressed Current episode severity: moderate Qualified Code(s): F31.32 - Bipolar disorder, current episode depressed, moderate (2) Essential hypertension: Status: Chronic Assessment and plan: Resume home dose of amlodipine. May need further adjustment based on his blood pressure response. 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 History of Present Illness History of Present Illness Chief Complaint: Medication adjustment Narrative: 69-year-old male with history of bipolar disorder, since hypertension, directed to the emergency department by [facility] for concerns of medication management. Ostensibly the patient claims that he came to the emergency department because of difficulty sleeping due to chronic nasal congestion. However according to Dr. Maude Vee, emergency room attending, patient was sent in by one of his mental health providers, Carol Hale, from [facility], out of concerns that the patient has had increased confusion and difficulty walking and urinary incontinence and joint pain all felt to be related to his psychiatric medications. Dr. Vee spoke with the patient's who administers his psychiatric medications and she concurred that he has had altered mental status including memory loss and difficulty walking and confusion since a recent change was made in his psychiatric medications. His psychiatric nurse practitioner Monica Morataya had changed his Seroquel and Risperdal and Vraylar to Valium and Rexulti because of concern for the above-mentioned symptoms. Patient's had no symptoms of suicidal or homicidal ideation and no recent fevers and no alcohol or illicit drug use. His urinary incontinence is often related to his inability to ambulate to the bathroom in time when he has a need to void. His chronic nasal congestion has been evaluated by ENT and has had previous nasal endoscopy that was negative for any polyps or obstruction. However he has not had a sleep study to evaluate for DANTE. Patient is admitted on observation status pending referral to an inpatient psychiatric hospitalization for medication management. He is here on voluntary status. Review of Systems All systems reviewed & are unremarkable except as noted in HPI and below [facility] Medical History (Updated 12/08/19 @ 22:10 by London Bland) Bipolar disorder (Chronic) Breathlessness (Acute) Congenital nasal septum deviation (Acute) Diverticula of colon (Acute) Essential hypertension (Chronic) Nasal turbinate hypertrophy (Acute) Neural hearing loss, bilateral (Acute) Surgical History History of colonoscopy (Chronic) History of orchiectomy, unilateral (Acute) left Family History Mother , 73 Depression Father , 61 Kidney malignancy Heart disease Hyperlipidemia Hypertension Sister No problems noted. Sister No problems noted. Sister Heart disease Hyperlipidemia Hypertension Sister No problems noted. Sister No problems noted. Brother Heart disease Brother , 48 Heart disease Hyperlipidemia Hypertension Maternal Grandfather , 64 Heart disease Hyperlipidemia Hypertension Paternal Grandfather , 56 Heart disease Hyperlipidemia Hypertension Maternal Grandmother , 70 Asthma Stroke Paternal Grandmother , 80 No problems noted. Son No problems noted. Daughter No problems noted. Social History Smoking/Tobacco Use Status: Former Tobacco Use Quit Date: 08/03/18 Quit status: has quit before Alcohol Intake: current Alcohol Intake frequency: holidays/special occasions only Alcohol type: hard liquor Drug use: Never Substance use type: does not use Caregiver/Support person: No Household members: spouse Housing: house Pets and animals: No Sexually active: Yes Do you think of yourself as: straight/heterosexual Current gender identity: male What is your relationship status?: How often do you talk on the phone with friends or family?: twice per week How often do you get together with friends or relatives?: twice per week How often do you attend sikh or mandaen services?: 4 or more times per year Do you belong to any clubs or organized social groups?: no Panel score (0-1 are the most socially isolated patients): 3 What type of physical activity do you participate in: walking Duration: 15-30 minutes/day Frequency: daily Eloisa/Druze: Buddhist Special eloisa needs: No Do you feel safe at home: Yes Do you feel safe in your relationship?: Yes Meds Home Medications and Allergies Home Medications Medication Instructions Recorded Confirmed Type divalproex 500 mg tablet,extended 500 mg PO BID tab-cap 11/22/18 12/08/19 History release 24 hr amlodipine 5 mg tablet 5 mg PO DAILY #90 tab 10/05/19 12/08/19 Rx magnesium 250 mg tablet 250 mg PO DAILY #90 tab 11/15/19 12/08/19 Rx brexpiprazole [Rexulti] 1 mg PO QHS 12/08/19 12/08/19 History diazepam [Valium] 2 mg PO BID PRN PRN 12/08/19 12/08/19 History Allergies Allergy/AdvReac Type Severity Reaction Status Date / Time bee pollen Allergy Severe swelling Unverified 12/08/19 18:09 Exam Narrative Exam Narrative: Patient is awake alert and oriented to person, place, time. Specifically the patient knew that he is admitted to [facility] and he knows the month and the year but he has a misperception as to why he was hospitalized. He is complained that he has difficulty sleeping primarily due to nasal congestion and would like something to help him sleep. HEENT: TMs intact no erythema or bulging. Nares is moist he has a deviated septum to the left there is no exudate and no discharge and no ulcerations. Oropharynx is noninjected no exudate teeth are in fair repair. Neck is supple nontender no JVD normal carotid pulse no bruits no thyromegaly no cervical lymphadenopathy. Lungs are clear to auscultation Heart is regular rate and rhythm with a soft systolic murmur over the apex no thrill heave gallop or rub. Abdomen soft and nontender nondistended normal active bowel sounds no bruits no palpable masses Extremities without peripheral cyanosis or edema. Neurologic exam he is alert and oriented person place time circumstance. No facial asymmetry no dysarthric speech speech is slow and coherent. He has a resting tremor which is worse in his right hand than his left however he also has an intention tremor which is noticeable when he does [id number] testing. There was no past-pointing but he was particularly clumsy with his left hand. He has some noticeable ataxia with [id number] testing. He has normal strength and normal range of motion. There is some cogwheel rigidity in his arms with passive abduction. Babinski reflexes absent Results Labs Result diagrams: 12/08/19 18:26 12/08/19 18:26 Labs: Laboratory Results - last 24 hr 12/08/19 12/08/19 12/08/19 18:26 18:26 18:37 WBC 11.76 H RBC 4.67 Hgb 14.8 Hct 43.6 MCV 93.4 MCH 31.7 MCHC 33.9 RDW 12.7 Plt Count 208 MPV 11.7 H Immature Gran % 0.3 Neutrophils % 62.0 Lymphocytes % 19.8 Monocytes % 12.7 Eosinophils % 4.8 Basophils % 0.4 Nucleated RBC % 0 Absolute Neutrophils 7.29 H Absolute Lymphocytes 2.33 Absolute Monocytes 1.49 H Absolute Eosinophils 0.56 Absolute Basophils 0.05 Sodium 143 Potassium 3.7 Chloride 108 H Carbon Dioxide 26.6 Anion Gap 8.4 BUN 15 Creatinine 1.23 Estimated GFR/1.73 m2 58.52 Glucose 95 Calcium 9.3 Total Bilirubin 0.4 AST 33 ALT 48 Alkaline Phosphatase 52 Total Protein 6.3 L Albumin 3.4 Urine Color Urine Clarity Urine pH Ur Specific [place] Urine Protein Urine Ketones Urine Blood Urine Nitrite Urine Bilirubin Urine Urobilinogen Ur Leukocyte Esterase Urine RBC Urine WBC Ur Epithelial Cells Urine Crystals Urine Bacteria Urine Mucus Ur Culture Indicated? Urine Glucose Urine Opiates Screen Negative Urine Methadone Screen Negative Ur Barbiturates Screen Negative Ur Tricyclics Screen Negative Ur Amphetamines Screen Negative U Benzodiazepines Scrn Negative Urine Cocaine Screen Negative Ur THC Screen Negative Ethyl Alcohol < 3.0 12/08/19 18:37 WBC RBC Hgb Hct MCV MCH MCHC RDW Plt Count MPV Immature Gran % Neutrophils % Lymphocytes % Monocytes % Eosinophils % Basophils % Nucleated RBC % Absolute Neutrophils Absolute Lymphocytes Absolute Monocytes Absolute Eosinophils Absolute Basophils Sodium Potassium Chloride Carbon Dioxide Anion Gap BUN Creatinine Estimated GFR/1.73 m2 Glucose Calcium Total Bilirubin AST ALT Alkaline Phosphatase Total Protein Albumin Urine Color Yellow Urine Clarity Clear Urine pH 7.0 Ur Specific Arist[place] 1.010 Urine Protein Negative Urine Ketones Negative Urine Blood Trace-intact H Urine Nitrite Negative Urine Bilirubin Negative Urine Urobilinogen 0.2 Ur Leukocyte Esterase Negative Urine RBC 0-2 Urine WBC Negative Ur Epithelial Cells Negative Urine Crystals Negative Urine Bacteria Negative Urine Mucus Negative Ur Culture Indicated? No Urine Glucose Negative Urine Opiates Screen Urine Methadone Screen Ur Barbiturates Screen Ur Tricyclics Screen Ur Amphetamines Screen U Benzodiazepines Scrn Urine Cocaine Screen Ur THC Screen Ethyl Alcohol Last Vital Signs Temp 36.2 C L 12/08/19 18:01 Pulse 65 12/08/19 20:35 Resp 18 12/08/19 19:24 BP 168/82 H 12/08/19 20:35 Pulse Ox 97 12/08/19 20:35 COVID-19 Screening Have you,or household,traveled outside [place] in last 14 days?: No Had IN PERSON contact w/suspected or confirmed C-19 person: No
[2019-12-08] MEDS: diazePAM 2 MG TAB PO (22:13)
[2019-12-08] MEDS: Enoxaparin 40 MG/0.4 ML SYR SC (22:14)
[2019-12-08 22:23] VITALS: BP 174/77; PULSE 69; RESP 18; TEMP 36.1; O2SAT 96
[2019-12-09 00:24] VITALS: BP 168/72; PULSE 68; RESP 18; TEMP 36.5; O2SAT 95
[2019-12-09] MEDS: Melatonin 3 MG TAB 9 MG PO ×2 (00:59→20:22)
[2019-12-09 07:41] VITALS: BP 149/81; PULSE 58; RESP 17; TEMP 36.9; O2SAT 98
[2019-12-09] MEDS: Magnesium Oxide 400 MG TAB PO (08:10)
[2019-12-09] MEDS: amLODIPine 5 MG TAB PO (08:10)
[2019-12-09] MEDS: diazePAM 2 MG TAB PO (08:10)
[2019-12-09] MEDS: Normal Saline Flush 10 ML SYR IVP (08:14)
[2019-12-09] MEDS: Divalproex Sodium 500 MG TAB.ER.24H PO ×2 (08:18→20:22)
--- NOTE | 2019-12-09 09:53 | W.PM.PROGNOT ---
Date of Service Date of service: 12/09/19 Time of Service: 09:53 Assessment and Plan Assessment and plan (1) Bipolar disorder: Start date: 12/09/19 Start time: 10:13 Status: Chronic Assessment and plan: Continue current medications including Depakote and Rexulti and as needed use of Valium. Will add trazodone for sleep. Refer for inpatient psychiatric care for further adjustment of his medications. This may be also exacerbating his ambulatory dysfunction. 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 Can be done as outpatient (4) Essential hypertension: Start date: 12/09/19 Start time: 10:15 Status: Chronic Assessment and plan: Resume home dose of amlodipine. Blood pressure improved above case discussed with Dr. Otero who is in agreement Subjective Subjective Patient reports: other Interval history since last seen: C/o not being able to sleep. Frequent urination per staff, will bladder scan for PVR. PT to work with patient. In the process of retrieving notes from psychiatry to review. Will order trazodone for sleep. Exam Narrative Exam Narrative: Patient is awake alert and oriented to person, place, time. Specifically the patient knew that he is admitted to [facility] and he knows the month and the year but he has a misperception as to why he was hospitalized. He is complained that he has difficulty sleeping. HEENT: TMs intact no erythema or bulging. Nares is moist he has a deviated septum to the left there is no exudate and no discharge and no ulcerations. Oropharynx is noninjected no exudate teeth are in fair repair. Neck is supple nontender no JVD normal carotid pulse no bruits no thyromegaly no cervical lymphadenopathy. Lungs are clear to auscultation Heart is regular rate and rhythm with a soft systolic murmur over the apex no thrill heave gallop or rub. Abdomen soft and nontender nondistended normal active bowel sounds no bruits no palpable masses Extremities without peripheral cyanosis or edema. He does have abrasion to left forbes and knee from previous fall Neurologic exam he is alert and oriented person place time circumstance. No facial asymmetry no dysarthria,speech is slow and coherent. He has a resting tremor which is worse in his right hand than his left however he also has an intention tremor which is noticeable when he does [id number] testing. There was no past-pointing but he was particularly clumsy with his left hand. He has some noticeable ataxia with [id number] testing. He has normal strength and normal range of motion. There is some cogwheel rigidity in his arms with passive abduction. Babinski reflexes absent Objective Objective Clinical Data: Abnormal lab results 12/08/19 12/08/19 12/08/19 Range/Units 18:26 18:26 18:37 WBC 11.76 H (4.4-10.8) 10^3/uL MPV 11.7 H (8.0-11.0) fL Absolute Neutrophils 7.29 H (1.2-6.7) 10^3/uL Absolute Monocytes 1.49 H (0.1-0.8) 10^3/uL Chloride 108 H (98-107) mmol/L Total Protein 6.3 L (6.4-8.2) g/dL Urine Blood Trace-intact H (Negative) Vital Signs Temperature 36.9 C 12/09/19 07:41 Temperature Source Tympanic 12/09/19 07:41 Pulse 58 L 12/09/19 07:41 Pulse Rhythm Regular 12/09/19 09:33 Respiratory Rate 17 12/09/19 07:41 Respiratory Effort 12/09/19 09:33 Respiratory Depth Normal 12/09/19 09:33 Respiratory Pattern Normal 12/09/19 09:33 Blood Pressure 149/81 H 12/09/19 07:41 Blood Pressure Position Sitting 12/08/19 18:01 Pulse Oximetry 98 12/09/19 07:41 Oxygen Delivery Method Room Air 12/09/19 07:41 Oxygen Flow Rate 0 12/09/19 07:41 Pain Level 0 12/09/19 07:41 Intake & Output 12/08/19 12/08/19 12/09/19 11:59 23:59 11:59 Intake Total 1000 / 1000 Output Total 620 / 620 2426 / 2426 Balance -620 / -620 -1426 / -1426 Weight 83.915 kg 86.2 kg Intake: Oral 1000 / 1000 Output: Urine 620 / 620 2400 / 2400 Post Void Residual Other: Urine Color Pale Pale Yellow Urine Appearance Clear Clear Urine Odor None Comment see amount under bladder scan intervention; 225ml, PVR 26ml Voiding Methods Urinal Urinal Laboratory Results WBC 11.76 10^3/uL (4.4-10.8) H 12/08/19 18:26 RBC 4.67 10^6/uL (4.36-5.78) 12/08/19 18:26 Hgb 14.8 g/dL (13.5-17.5) 12/08/19 18: Hct 43.6 % (40.0-50.0) 12/08/19 18: MCV 93.4 fL (80-95) 12/08/19 18: MCH 31.7 pg (27.0-33.0) 12/08/19 18: MCHC 33.9 % (32.0-36.0) 12/08/19 18:26 RDW 12.7 % (11.8-14.1) 12/08/19 18:26 Plt Count 208 10^3/uL (130-400) 12/08/19 18:26 MPV 11.7 fL (8.0-11.0) H 12/08/19 18:26 Immature Gran % 0.3 12/08/19 18: Neutrophils % 62.0 12/08/19 18:26 Lymphocytes % 19.8 12/08/19 18:26 Monocytes % 12.7 12/08/19 18:26 Eosinophils % 4.8 12/08/19 18:26 Basophils % 0.4 12/08/19 18:26 Nucleated RBC % 0 % 12/08/19 18:26 Absolute Neutrophils 7.29 10^3/uL (1.2-6.7) H 12/08/19 18:26 Absolute Lymphocytes 2.33 10^3/uL (1.2-3.4) 12/08/19 18:26 Absolute Monocytes 1.49 10^3/uL (0.1-0.8) H 12/08/19 18:26 Absolute Eosinophils 0.56 10^3/uL (0.0-0.7) 12/08/19 18:26 Absolute Basophils 0.05 10^3/uL (0.0-0.2) 12/08/19 18:26 Sodium 143 mmol/L (136-145) 12/08/19 18:26 Potassium 3.7 mmol/L (3.5-5.1) 12/08/19 18:26 Chloride 108 mmol/L (98-107) H 12/08/19 18:26 Carbon Dioxide 26.6 mmol/L (21.0-32.0) 12/08/19 18:26 Anion Gap 8.4 mmol/L (3-11) 12/08/19 18:26 BUN 15 mg/dL (7-18) 12/08/19 18:26 Creatinine 1.23 mg/dL (0.70-1.30) 12/08/19 18:26 Estimated GFR/1.73 m2 58.52 (mL/min/1.73m2) 12/08/19 18:26 Glucose 95 mg/dL (74-106) 12/08/19 18:26 Calcium 9.3 mg/dL (8.5-10.1) 12/08/19 18:26 Total Bilirubin 0.4 mg/dL (0.2-1.0) 12/08/19 18:26 AST 33 U/L (15-37) 12/08/19 18:26 ALT 48 U/L (16-63) 12/08/19 18:26 Alkaline Phosphatase 52 U/L (46-116) 12/08/19 18:26 Total Protein 6.3 g/dL (6.4-8.2) L 12/08/19 18:26 Albumin 3.4 g/dL (3.4-5.0) 12/08/19 18:26 Urine Color Yellow (Yellow) 12/08/19 18:37 Urine Clarity Clear (Clear) 12/08/19 18:37 Urine pH 7.0 (5-8) 12/08/19 18:37 Ur Specific [place] 1.010 (1.005-1.025) 12/08/19 18:37 Urine Protein Negative mg/dL (Negative) 12/08/19 18:37 Urine Ketones Negative mg/dL (Negative) 12/08/19 18:37 Urine Blood Trace-intact (Negative) H 12/08/19 18:37 Urine Nitrite Negative (Negative) 12/08/19 18:37 Urine Bilirubin Negative (Negative) 12/08/19 18:37 Urine Urobilinogen 0.2 EU/dL (Up TO 0.2) 12/08/19 18:37 Ur Leukocyte Esterase Negative (Negative) 12/08/19 18:37 Urine RBC 0-2 HPF (0-2) 12/08/19 18:37 Urine WBC Negative HPF (0-5) 12/08/19 18:37 Ur Epithelial Cells Negative HPF (Negative) 12/08/19 18:37 Urine Crystals Negative HPF (Negative) 12/08/19 18:37 Urine Bacteria Negative HPF (Negative) 12/08/19 18:37 Urine Mucus Negative (Negative) 12/08/19 18:37 Ur Culture Indicated? No 12/08/19 18:37 Urine Glucose Negative mg/dL (Negative) 12/08/19 18:37 Urine Opiates Screen Negative (Negative) 12/08/19 18:37 Urine Methadone Screen Negative (Negative) 12/08/19 18:37 Ur Barbiturates Screen Negative (Negative) 12/08/19 18:37 Ur Tricyclics Screen Negative (Negative) 12/08/19 18:37 Ur Amphetamines Screen Negative (Negative) 12/08/19 18:37 U Benzodiazepines Scrn Negative (Negative) 12/08/19 18:37 Urine Cocaine Screen Negative (Negative) 12/08/19 18:37 Ur THC Screen Negative (Negative) 12/08/19 18:37 Ethyl Alcohol < 3.0 mg/dL (<3) 12/08/19 18:26
--- NOTE | 2019-12-09 10:10 | INITIAL_ITS ---
- If Service Date Differs Date of service: 12/09/19 Time of Service: 10:10 Care Management Initial Assess REASON FOR HOSPITALIZATION:: AMS, behavior changes and polypharmacy. PAST MEDICAL HISTORY/PAST SURGICAL HISTORY:: Medical: bipolar disorder, tobacco use. Surgical: removal of undescended testicle PREVIOUS FUNCTIONAL STATUS/SOCIAL/FAMILY SUPPORTS:: He is 69 yo man who lives with his in their home in [facility]. They have a daughter who lives in the area. He is usually managed well at home with his psych meds, until recently he has been experaincing stiffness, shaking and multiple falls. He has not been able to sleep or care for himself. He has been experiancing incontinance and frequent urination. At baseline Sebas is hard of hearing, indepedent and still drives. CURRENT FUNCTIONAL STATUS:: Sebas's expression is flat, he does offer a small smile when CM engages him in conversation. Sebas states he is hard of hearing. He is requesting to lay down when CM in the room, he reports nausea earlier however it has improved. CM was able to obtain his notes from [facility] and review with provider. Hopeful Sebas will be able to transition to [facility] for medication management. Referral has been faxed. ADVANCE DIRECTIVES:: None on file - CM to offer forms Has patient been provided with info about the portal/API?: Yes Did the patient sign up for the portal?: No (Enrolled) CODE STATUS:: Full Code INSURANCE COVERAGE / FINANCIAL ISSUES:: Medicare CURRENT HOME/COMMUNITY SERVICES/EQUIPMENT:: [facility] PRIMARY CARE PHYSICIAN:: POTENTIAL DISCHARGE NEEDS:: Transition to [facility] vs Continued medication management with outpatient TURN OUT WORKER and new referral to neurology. PATIENT/FAMILY EDUCATION NEEDS:: Discharge education, limitations and follow up plan of care including ask me three and self management. ANTICIPATED BARRIERS TO DISCHARGE:: Appropiate level of care to adjust medication TRANSPORTATION:: Pending dispostion. PLAN:: Sebas will transition to acute level of care. He is having frequent voids, medication are being adjusted awaiting bed offer from [facility]. CM appreciates [facility] continued support. CM will continue to coordinate disposition.
--- NOTE | 2019-12-09 10:20 | PDOC.MHCN ---
Date of service: 12/09/19 Time of Service: 10:20 Mental Health Crisis Note Presenting Issue How did you arrive at the ED and why did you come: Sebas arrived yesterday via his and daughter. His family has been concerned after some changes to his meds. Precipitating Factors Sebas denied SI and HI but states he is depressed and anxious and not feeling well. There are no signs of delusions obdserved. Disposition BEHAVIOR: Sebas tries to engaged and friendly but struggles to hear at times. He has not been a behaviour patient while here and does not have a hx of. He is aware of where he is, month and year. Nurse reported he was not incontinent last night. EYE CONTACT: Eye contact is good. MOOD: Sebas reports he is sad. he presents as depressed as well. AFFECT: Sebas has a flat and blunted affect. APPETITE: Sebas reported that he did eat breakfast. SLEEP(trouble falling/staying asleep: Sebas was up 5 times last night and reports that he did not sleep well. Plan We will continue to seek a voluntary placement. Signature Clinician's Name/Title: Carol Hale MS, [facility] Emergency Services Clinician
[2019-12-09] MEDS: Loratidine 10 MG TAB PO (11:09)
[2019-12-09] MEDS: Benztropine 1 MG TAB PO ×2 (11:10→20:22)
--- NOTE | 2019-12-09 11:36 | NUR.NOTE ---
Nursing Note: New medications ordered were administered. Have passed on to INTERNET MARKETING COORDINATOR the observation that patients pupils are very dilated
--- NOTE | 2019-12-09 12:00 | PHA.REVIEW ---
Pharmacy Admission Review - Admission Clinical Review (Last Updated 12/08/19 @ 22:05 by London Bland) Ambulatory dysfunction (Acute) bee pollen Allergy (Severe, Unverified 12/08/19 18:09) swelling Height 5 ft 10 in Weight 86.2 kg - Renal Dosing Renal Dosing: BUN 15 mg/dL (7-18) 12/08/19 18:26 Creatinine 1.23 mg/dL (0.70-1.30) 12/08/19 18:26 Medications needing adjustments: Reviewed (Crcl ~59 mL/min current meds okay.) - Anticoagulation Anticoagulation: Hgb 14.8 g/dL (13.5-17.5) 12/08/19 18:26 Hct 43.6 % (40.0-50.0) 12/08/19 18:26 Plt Count 208 10^3/uL (130-400) 12/08/19 18:26 Creatinine 1.23 mg/dL (0.70-1.30) 12/08/19 18:26 DVT Prohphylaxis: Reviewed Medications: Enoxaparin Therapeutic Anticoagulation: N/A - Opiate Usage Evaluate Pain Scale/Pains Meds: N/A - Relevant Labs Sodium 143 mmol/L (136-145) 12/08/19 18:26 Potassium 3.7 mmol/L (3.5-5.1) 12/08/19 18:26 Chloride 108 mmol/L (98-107) H 12/08/19 18:26 - DM Control DM Control: Glucose 95 mg/dL (74-106) 12/08/19 18:26 Insulin Dosing: N/A - Heart Failure/UT EF%, ANGELES's, B-Blockers, Diuretics: N/A - BP Control BP Control: Blood Pressure 149/81 Blood Pressure 168/72 If elevated: Reviewed (prior to morning dose of amlodipine) - Qtc Review If Elevated: N/A - IV to PO Switch IV Medications: Reviewed - Home Meds Home Med List reviewed: Reviewed (Some recent med changes per morning report; CM was working on getting update med list/list of recent changes. Multiple FAMILY PRESERVATION CASEWORKER depressants: brexpiprazole and diazepam.) Relevent Home Meds Not ordered & why?: All meds currently listed on home med list are ordered. - Current meds Current Medication Order Review: Intervened (Discontinued duplicate med orders.) - Comments Comments/Follow Ups: Watch BP, labs and for med changes. Patient's own brexpiprazole ordered, but has not been brought in or checked by pharmacy yet.
--- NOTE | 2019-12-09 12:24 | IN_ITS ---
Date of service: 12/09/19 Time of Service: 11:00 PT Notes Visit Reasons: ALTERED MENTAL STATUS, BEHAVIOR CHANGE, POLYMEDICA Inpatient Physical Therapy Evaluation Date: 12/09/2019 Referring Doctor: London Bland MD PT Orders: PT CONSULT: Limited ability Precautions: Unstable gait, potential falls, altered mental status Patient Profile/Admitting Diagnosis: admitted after developing altered mental status beyond baseline for bipolar, altered gait pattern, falls, and restlessness due to recent medication changes for management of his bipolar. He is beginning to develop parkinsonian type symptoms, related to his medication. Patient had recent fall when ambulating stairs at his daughter's house, brought to ER by family due to fall and altered status with recent increase in confusion, and restlessness. PMHX: Medical History (Updated 12/08/19 @ 22:10 by London Bland) Bipolar disorder (Chronic) Breathlessness (Acute) Congenital nasal septum deviation (Acute) Diverticula of colon (Acute) Essential hypertension (Chronic) Nasal turbinate hypertrophy (Acute) Neural hearing loss, bilateral (Acute) Surgical History History of colonoscopy (Chronic) History of orchiectomy, unilateral (Acute) left Social History/Home Situation: Patient resides at [facility] in [facility] during the summer months, with his Isabel. Isabel is his primary air brake rigger. He has a daughter who lives locally, involved in his care. A son that lives in [place]. They intend to spend the winter months in [place]. Generally, his independently functioning, without assistive device. Bipolar managed with medication, with episodic mental status changes. Current Functional Limitations: Unstable gait Equipment Owned/DME: None Subjective: reports that he is very tired and restless. He wishes that he could get some sleep, but his mind will not let him. He acknowledges that he needs a walker because he does not feel stable walking. Objective: General Observation: Lying in bed, resposive Mental Status: Alert and oriented x3, flat affect. While he appears of a flat affect and clearly is having an altered mental status related to medications, he is much aware of his current situation, and his capabilities. Pain: None Vital Signs: BP 149/81, HR 98 ROM: Right Upper Extremity: WNL Left Upper Extremity: WNL Right Lower Extremity: WNL Left Lower Extremity: WNL Strength: Right Upper Extremity: Grossly 5/5 throughout Left Upper Extremity: Grossly 5/5 throughout Right Lower Extremity: Grossly 5/5 throughout Left Lower Extremity: Grossly 5/5 throughout Sensation: WNL Bed Mobility/Transfers: Independent with bed mobility Independent with supine to edge of bed, and vice versa Independent with sit to stand RW, and vice versa Gait: RW, close supervision, 200 feet Balance: Static Sitting: Good Dynamic Sitting: Good Static Standing: Good Dynamic Standing: Fair Stage IV balance test: Fails stage IV Sit to stand: Completes without hands Romberg: Positive Special Tests: Mobility Limitations Standardized Measure [facility] AM-PAC 6 clicks Basic Mobility Inpatient Short Form: Raw Score: 22 standardized Score: CMS Score: 20% disability Informed Consent/Education: Patient instructed in purpose of PT consult and plan of care. Assessment: Patient is a 69 year old male referred to physical therapy services with the diagnosis of limited ability with ambulatory dysfunction and recent fall, related to bipolar episode with recent change in mental health medications and parkinsonian symptoms related to mental health medications. Patient presents with clinical signs and symptoms consistent with mental health status change, gait dysfunction, and poor stability with functional weightbearing tasks. Impairment level findings: Mild balance impairment. Impairments are contributing to the following functional limitations: AMPAC score of 20% disability, and recent initiation of utilization with right ear with ambulation. Premorbid level of function did not require right ear. Patient will require RW upon return home, until his balance and stability was restored with mental health improvements. Patient requires skilled PT services to improve stability with weightbearing and dynamic standing and gait activities, to ensure safety upon return home with family support. Patient is assessed as a Low [id number] History: See comorbidities/PMH Examination: See above impairments and functional limitations Presentation: Stable Decision Making: Easy Goals: Goals X1 week 1. Supine-Sit independent 2. Sit-Supine independent 3. Sit-Stand independent 4. Stand-Sit independent 5. Bed-Chair independent 6. Chair-Bed independent 7. Gait independent, RW 8. Stairs independent 9. Independent with home exercise program 10. Balance but with all dynamic activities Plan of Care/Treatment Plan: 1-2x/day, 7 days/week x 1 week. Plan of care has been reviewed with the THRESHING OPERATOR providing the service under Physical Therapy direction. Initiate Physical Therapy intervention for strengthening, bed mobility, transfers, gait, stairs, balance training, use of assistive device. DISCHARGE RECOMMENDATIONS: Home with family support. Patient will require rolling walker to improve stability with dynamic ambulation and weightbearing activities, as he achieves mental health stability. TREATMENT CODE/TIME: 74774, 30 minutes
[2019-12-09 15:57] VITALS: BP 161/83; PULSE 63; RESP 17; TEMP 36.8; O2SAT 98
[2019-12-09] MEDS: traZODone 50 MG TAB PO (21:49)
[2019-12-09] MEDS: Enoxaparin 40 MG/0.4 ML SYR SC (21:50)
[2019-12-09 23:25] VITALS: TEMP 38
[2019-12-09] MEDS: Acetaminophen 325 MG TAB PO (23:25)
[2019-12-09 23:49] VITALS: BP 135/78; PULSE 59; RESP 18; TEMP 38; O2SAT 97
--- NOTE | 2019-12-10 | DI.RAD_ITS ---
EXAM: XR PORTABLE CHEST AP CLINICAL HISTORY: fever TECHNIQUE: 2D digital imaging was performed. COMPARISON: CR RIGHT RIBS TO INCLUDE CXR from 12/21/2012 FINDINGS: Exam is limited by poor pulmonary inflation. Heart size appears unchanged. There are old right rib fractures. The lungs appear clear. IMPRESSION: No acute pulmonary findings. DATA REPOSITORY: RADIATION DOSE DELIVERED:
[2019-12-10] MEDS: diazePAM 2 MG TAB PO ×2 (03:01→17:51)
[2019-12-10 03:11] VITALS: TEMP 37.9
[2019-12-10 06:12] LABS: COVID-19 RT-PCR UVMMC Result Negative (Negative)
[2019-12-10 07:39] LABS: HCT 47.5 % (40.0-50.0); HGB 15.6 g/dL (13.5-17.5); MCH 31.2 pg (27.0-33.0); MCHC 32.8 % (32.0-36.0); MPV 12.4 fL (8.0-11.0); Platelet Count 211 10^3/uL (130-400); RDW 12.6 % (11.8-14.1); RDW-SD 43.9 fL; WBC 9.86 10^3/uL (4.4-10.8)
[2019-12-10 08:06] VITALS: BP 138/73; PULSE 54; RESP 17; TEMP 36.3; O2SAT 96
[2019-12-10] MEDS: Divalproex Sodium 500 MG TAB.ER.24H PO ×2 (08:44→20:47)
[2019-12-10] MEDS: Loratidine 10 MG TAB PO (08:44)
[2019-12-10] MEDS: Magnesium Oxide 400 MG TAB PO (08:44)
[2019-12-10] MEDS: Benztropine 1 MG TAB PO ×2 (08:44→20:47)
[2019-12-10] MEDS: amLODIPine 5 MG TAB PO (08:44)
--- NOTE | 2019-12-10 08:59 | DI.VRAD_ITS ---
PROCEDURE INFORMATION: Exam: XR Chest, 1 View Exam date and time: 12/10/2019 8:49 AM Age: 69 years old Clinical indication: Other: AMS TECHNIQUE: Imaging protocol: XR of the chest Views: 1 view. COMPARISON: CR RIGHT RIBS TO INCLUDE CXR 12/21/2012 9:21 PM FINDINGS: Lungs: Unremarkable. No consolidation. Pleural space: Unremarkable. No pleural effusion. No pneumothorax. Heart/Mediastinum: Unremarkable. No cardiomegaly. Bones/joints: Unremarkable. IMPRESSION: No acute findings. Dictated and Authenticated by: Ankita Barros MD. Ordering:CHAVEZ Cuello MD
[2019-12-10] MEDS: Haloperidol 1 MG TAB PO (09:34)
[2019-12-10] MEDS: diphenhydrAMINE 25 MG CAP 50 MG PO (09:34)
--- NOTE | 2019-12-10 10:28 | PTTR_ITS ---
Date of service: 12/10/19 Time of Service: 10:28 PT Notes Visit Reasons: AMS, BEHAVIOR CHANGE, POLYMEDICATION 12/10/2019 SUBJECTIVE: Buzz stating that he is very tired. He is agreeable to a walk. OBJECTIVE: [id number] TRANSFERS Supine to sit: I Sit to supine: I Sit to stand: I Stand to sit: I GAIT Device: FWW Weight bearing: Full Assist: SBA Distance: 100' Deviation: Cues for lengthening stride length THEREX: Pt stating he had enough. ASSESSMENT/PLAN: Continue to progress functional mobility and strength. Treatment time: 12' Kaylee Childs PTA Clinic location: [facility] [place], [place]
[2019-12-10] MEDS: Tamsulosin 0.4 MG CAPCR PO (11:38)
--- NOTE | 2019-12-10 11:44 | W.PM.PROGNOT ---
Date of Service Date of service: 12/10/19 Time of Service: 11:44 Assessment and Plan Assessment and plan (1) Bipolar disorder: Start date: 12/10/19 Start time: 11:51 Status: Chronic Assessment and plan: Continue current medications including Depakote and Rexulti and as needed use of Valium. Will add trazodone for sleep. Refer for inpatient psychiatric care for further adjustment of his medications. This may be also exacerbating his ambulatory dysfunction. 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 Can be done as outpatient (4) Essential hypertension: Start date: 12/10/19 Start time: 11:52 Status: Chronic Assessment and plan: Resume home dose of amlodipine. Blood pressure improved above case discussed with Dr. Otero who is in agreement Subjective Subjective Patient reports: other Interval history since last seen: Per nursing he was up most of the night using the BR, patient c/o of inability to sleep due to forbes abrasion. He was anxious this morning. Given haldol and benadryl for anxiety, many medications have been tried by psych will be cautious when adding or increasing medications, as per psych IN HOME CAREGIVER notes he has tried numerous different medicationswithout success. He was febrile overnight. Urine negative, CXR negative, no further work up at this time given lack of leukocytosis and symptoms will hold any further work up. Mepilex applied to forbes Exam Narrative Exam Narrative: Awake alert and oriented. ANVIK. Able to answer questions appropriately HEENT: TMs intact no erythema or bulging. Nares is moist he has a deviated septum to the left there is no exudate and no discharge and no ulcerations. Oropharynx is noninjected no exudate teeth are in fair repair. Neck is supple nontender no JVD normal carotid pulse no bruits no thyromegaly no cervical lymphadenopathy. Lungs are clear to auscultation Heart is regular rate and rhythm with a soft systolic murmur over the apex no thrill heave gallop or rub. Abdomen soft and nontender nondistended normal active bowel sounds no bruits no palpable masses Extremities without peripheral cyanosis or edema. He does have abrasion to left forbes and knee from previous fall Neurologic exam he is alert and oriented person place time circumstance. No facial asymmetry no dysarthria,speech is slow and coherent. He has a resting tremor which is worse in his right hand than his left however he also has an intention tremor which is noticeable when he does [id number] testing. There was no past-pointing but he was particularly clumsy with his left hand. He has some noticeable ataxia with [id number] testing. He has normal strength and normal range of motion. There is some cogwheel rigidity in his arms with passive abduction. Babinski reflexes absent Objective Objective Clinical Data: Abnormal lab results 12/10/19 Range/Units 06:55 MPV 12.4 H (8.0-11.0) fL Vital Signs Temperature 36.3 C L 12/10/19 08:06 Temperature Source Tympanic 12/10/19 08:06 Pulse 54 L 12/10/19 08:06 Pulse Rhythm Regular 12/10/19 11:27 Respiratory Rate 17 12/10/19 08:06 Respiratory Effort Non-Labored 12/10/19 11:27 Respiratory Depth Normal 12/10/19 11:27 Respiratory Pattern Normal 12/10/19 11:27 Blood Pressure 138/73 12/10/19 08:06 Blood Pressure Position Sitting 12/08/19 18:01 Pulse Oximetry 96 12/10/19 08:06 Oxygen Delivery Method Room Air 12/10/19 08:06 Oxygen Flow Rate 0 12/10/19 08:06 Pain Level 0 12/10/19 08:06 Comment 12/09/19 23:49 Intake & Output 12/09/19 12/09/19 12/10/19 11:59 23:59 11:59 Intake Total 1500 / 2480 980 / 2480 540 / 540 Output Total 2950 / 5795 2845 / 5795 950 / 950 Balance -1450 / -3315 -1865 / -3315 -410 / -410 Weight 86.2 kg 86.2 kg Intake: Oral 1500 / 2480 980 / 2480 540 / 540 Output: Urine 2950 / 5795 2845 / 5795 950 / 950 Other: Urine Color Pale Yellow Yellow Urine Appearance Clear Clear Clear Urine Odor None Strong None Comment PVR 25ml voided 200ml Voiding Methods Urinal Urinal Urinal Laboratory Results WBC 9.86 10^3/uL (4.4-10.8) 12/10/19 06:55 RBC 5.00 10^6/uL (4.36-5.78) 12/10/19 06:55 Hgb 15.6 g/dL (13.5-17.5) 12/10/19 06:55 Hct 47.5 % (40.0-50.0) 12/10/19 06:55 MCV 95.0 fL (80-95) 12/10/19 06:55 MCH 31.2 pg (27.0-33.0) 12/10/19 06:55 MCHC 32.8 % (32.0-36.0) 12/10/19 06:55 RDW 12.6 % (11.8-14.1) 12/10/19 06:55 Plt Count 211 10^3/uL (130-400) 12/10/19 06:55 MPV 12.4 fL (8.0-11.0) H 12/10/19 06:55 Immature Gran % 0.3 12/08/19 18:26 Neutrophils % 62.0 12/08/19 18:26 Lymphocytes % 19.8 12/08/19 18:26 Monocytes % 12.7 12/08/19 18:26 Eosinophils % 4.8 12/08/19 18:26 Basophils % 0.4 12/08/19 18:26 Nucleated RBC % 0 % 12/08/19 18:26 Absolute Neutrophils 7.29 10^3/uL (1.2-6.7) H 12/08/19 18:26 Absolute Lymphocytes 2.33 10^3/uL (1.2-3.4) 12/08/19 18:26 Absolute Monocytes 1.49 10^3/uL (0.1-0.8) H 12/08/19 18:26 Absolute Eosinophils 0.56 10^3/uL (0.0-0.7) 12/08/19 18:26 Absolute Basophils 0.05 10^3/uL (0.0-0.2) 12/08/19 18:26 Sodium 143 mmol/L (136-145) 12/08/19 18:26 Potassium 3.7 mmol/L (3.5-5.1) 12/08/19 18:26 Chloride 108 mmol/L (98-107) H 12/08/19 18:26 Carbon Dioxide 26.6 mmol/L (21.0-32.0) 12/08/19 18:26 Anion Gap 8.4 mmol/L (3-11) 12/08/19 18:26 BUN 15 mg/dL (7-18) 12/08/19 18:26 Creatinine 1.23 mg/dL (0.70-1.30) 12/08/19 18:26 Estimated GFR/1.73 m2 58.52 (mL/min/1.73m2) 12/08/19 18:26 Glucose 95 mg/dL (74-106) 12/08/19 18:26 Calcium 9.3 mg/dL (8.5-10.1) 12/08/19 18:26 Total Bilirubin 0.4 mg/dL (0.2-1.0) 12/08/19 18:26 AST 33 U/L (15-37) 12/08/19 18:26 ALT 48 U/L (16-63) 12/08/19 18:26 Alkaline Phosphatase 52 U/L (46-116) 12/08/19 18:26 Total Protein 6.3 g/dL (6.4-8.2) L 12/08/19 18:26 Albumin 3.4 g/dL (3.4-5.0) 12/08/19 18:26 Urine Color Yellow (Yellow) 12/08/19 18:37 Urine Clarity Clear (Clear) 12/08/19 18:37 Urine pH 7.0 (5-8) 12/08/19 18:37 Ur Specific [place] 1.010 (1.005-1.025) 12/08/19 18:37 Urine Protein Negative mg/dL (Negative) 12/08/19 18:37 Urine Ketones Negative mg/dL (Negative) 12/08/19 18:37 Urine Blood Trace-intact (Negative) H 12/08/19 18:37 Urine Nitrite Negative (Negative) 12/08/19 18:37 Urine Bilirubin Negative (Negative) 12/08/19 18:37 Urine Urobilinogen 0.2 EU/dL (Up TO 0.2) 12/08/19 18:37 Ur Leukocyte Esterase Negative (Negative) 12/08/19 18:37 Urine RBC 0-2 HPF (0-2) 12/08/19 18:37 Urine WBC Negative HPF (0-5) 12/08/19 18:37 Ur Epithelial Cells Negative HPF (Negative) 12/08/19 18:37 Urine Crystals Negative HPF (Negative) 12/08/19 18:37 Urine Bacteria Negative HPF (Negative) 12/08/19 18:37 Urine Mucus Negative (Negative) 12/08/19 18:37 Ur Culture Indicated? No 12/08/19 18:37 Urine Glucose Negative mg/dL (Negative) 12/08/19 18:37 Urine Opiates Screen Negative (Negative) 12/08/19 18:37 Urine Methadone Screen Negative (Negative) 12/08/19 18:37 Ur Barbiturates Screen Negative (Negative) 12/08/19 18:37 Ur Tricyclics Screen Negative (Negative) 12/08/19 18:37 Ur Amphetamines Screen Negative (Negative) 12/08/19 18:37 U Benzodiazepines Scrn Negative (Negative) 12/08/19 18:37 Urine Cocaine Screen Negative (Negative) 12/08/19 18:37 Ur THC Screen Negative (Negative) 12/08/19 18:37 Ethyl Alcohol < 3.0 mg/dL (<3) 12/08/19 18:26 COVID-19 PCR Negative (Negative) 12/08/19 20:38 Nasopharyn COVID-19 PCR Not Applicable 12/08/19 20:38 Ref Test Perform Site [facility] lab 12/08/19 20:38
--- NOTE | 2019-12-10 12:15 | PDOC.CMPRO ---
- If Service Date Differs Date of service: 12/10/19 Time of Service: 12:15 Care Management Progress Note S/O: Sebas, is alert this morning, he is awaiting a bed at [facility], referral has been sent, CM did contact the facility the provider will review referral in the morning and make a decision. CM contacted Sebas's spouse and request she bring in his Rexulti from home as we do not have that on formulary. A:Seabs is a 69 year old male with a history of Bipolar, admitted with AMS, behavior changes and polypharmacy and Parkinsonism symptoms. P:Anticipate Sebas will be able to transition to [facility] for medication management. He would also benefit from neurology possible as outpatient. [facility] continues to support patient while at [facility]. Sebas will transport via [facility] to [facility] if accepted.
--- NOTE | 2019-12-10 12:53 | W.INMHPGNOTE ---
Date of service: 12/10/19 Time of Service: 12:54 Mental Health Crisis Note Presenting Issue How did you arrive at the ED and why did you come: Sebas's and daughter brought him to the ER this past Wednesday due to decompensation in ability to care for himself since recent med changes. Precipitating Factors Sebas continues to deny SI and HI and there are no signs of delusions. Disposition BEHAVIOR: Sebas is eating his lunch when I arrive a grilled cheese and a banana. He is observed to be very shaky while doing so. He struggles to hear so it is important to stand close to him and speak slowly and clearly for him to hear. He answers questions but it seems he needs a little bit of time to process and answer back. He is friendly and cooperative. EYE CONTACT: Eye contact is good. MOOD: Sebas's mood appears depressed. AFFECT: His affect is flat. APPETITE: Sebas is eating. SLEEP(trouble falling/staying asleep: Sebas reports that he must have slept okay but then later as we spoke reports that he can't get comfortable. Plan We will still keep seeking a voluntary placement. He is still voluntary accepting placement. Signature Clinician's Name/Title: Carol Hale MS, [facility] Emergency Services Clinician
[2019-12-10 16:13] VITALS: BP 146/90; PULSE 61; RESP 20; TEMP 37; O2SAT 94
[2019-12-10 20:34] VITALS: BP 149/74; PULSE 60; RESP 19; TEMP 36.3; O2SAT 93
[2019-12-10] MEDS: Melatonin 3 MG TAB 9 MG PO (21:48)
[2019-12-10] MEDS: traZODone 50 MG TAB PO (21:49)
[2019-12-10] MEDS: Enoxaparin 40 MG/0.4 ML SYR SC (21:49)
[2019-12-10] MEDS: Polyethylene Glycol 3350 17 GM PACKET PO (21:49)
[2019-12-10] MEDS: Docusate Sodium 100 MG CAP PO (21:49)
[2019-12-11] MEDS: Normal Saline Flush 10 ML SYR IVP ×3 (03:10→20:59)
[2019-12-11] MEDS: Ondansetron 4 MG/2 ML VIAL IVP ×2 (03:10→13:54)
[2019-12-11 05:38] VITALS: BP 138/74; PULSE 58; RESP 17; TEMP 36.5; O2SAT 94
[2019-12-11 07:25] VITALS: BP 134/80; PULSE 52; RESP 17; TEMP 36.9; O2SAT 98
[2019-12-11] MEDS: Magnesium Oxide 400 MG TAB PO (07:58)
[2019-12-11] MEDS: Benztropine 1 MG TAB PO ×2 (07:59→21:00)
[2019-12-11] MEDS: Tamsulosin 0.4 MG CAPCR PO (07:59)
[2019-12-11] MEDS: Omeprazole 20 MG CAPCR PO (07:59)
[2019-12-11] MEDS: Loratidine 10 MG TAB PO (07:59)
[2019-12-11] MEDS: Divalproex Sodium 500 MG TAB.ER.24H PO ×2 (07:59→21:00)
[2019-12-11] MEDS: amLODIPine 5 MG TAB PO (07:59)
[2019-12-11 08:06] LABS: HCT 48.4 % (40.0-50.0); HGB 15.9 g/dL (13.5-17.5); MCH 31.1 pg (27.0-33.0); MCHC 32.9 % (32.0-36.0); MCV 94.7 fL (80-95); MPV 12.5 fL (8.0-11.0); Platelet Count 212 10^3/uL (130-400); RBC 5.11 10^6/uL (4.36-5.78); RDW 12.7 % (11.8-14.1); RDW-SD 44.6 fL; WBC 9.96 10^3/uL (4.4-10.8)
[2019-12-11 08:24] LABS: Anion Gap 6.7 mmol/L (3-11); BUN 14 mg/dL (7-18); CO2 29.3 mmol/L (21.0-32.0); CREATININE 1.34 mg/dL (0.70-1.30); Calcium 10.3 mg/dL (8.5-10.1); Chloride 106 mmol/L (98-107); Estimated GFR 53.01 (mL/min/1.73m2); Glucose 86 mg/dL (74-106); Sodium 142 mmol/L (136-145)
--- NOTE | 2019-12-11 09:45 | PDOC.CMPRO ---
- If Service Date Differs Date of service: 12/11/19 Time of Service: 09:45 Care Management Progress Note S/O: Sebas remained in bed most of the day, frequently napping. CM met with him this afternoon and his only request was that he be able to get up, or at least sit on the side of the bed. He stated that he is very uncomfortable and needs to change his position. CM shared this information with an SONOSCOPE OPERATOR on the floor. Per staff, Sebas is polite and cooperative but does not really engage. His conversations are limited and are usually requests. CM contacted [facility] today re: possible admission but their admission staff was not working on the holiday so determination about placement was deferred until tomorrow. A:Sebas is a 69 year old male with a history of Bipolar, admitted with AMS, behavior changes and polypharmacy and Parkinsonism symptoms. P: Hopefully Sebas will be able to transition to [facility] for medication management. He would also benefit from a neurology consult, possibly as an outpatient. [facility] continues to support patient while at [facility]. Sebas will transport via [facility] to [facility] if accepted. CM will continue to support patient and family and assess for ongoing discharge needs.
--- NOTE | 2019-12-11 10:35 | PGE_ITS ---
Date of Service Date of service: 12/11/19 Time of Service: 10:35 Assessment and Plan Assessment and plan (1) Bipolar disorder: Start date: 12/11/19 Start time: 10:38 Status: Chronic Assessment and plan: Continue current medications including Depakote and Rexulti and as needed use of Valium. Trazodone dcd due to dry mouth. continues to c/o lack of sleep Refer for inpatient psychiatric care for further adjustment of his medications. This may be also exacerbating his ambulatory dysfunction. 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 Can be done as outpatient (4) Essential hypertension: Start date: 12/11/19 Start time: 10:39 Status: Chronic Assessment and plan: Resume home dose of amlodipine. Blood pressure improved above case discussed with Dr. Otero who is in agreement Subjective Subjective Patient reports: other Interval history since last seen: continues to c/o inability to sleep. He has a flat affect, [place] which does frustrate him if he is unable to hear. Up to use urinal often, no ua, he has a CPSO due to risk for falls, awaiting placement, referral to [facility] [place]. Exam Narrative Exam Narrative: Awake alert and oriented. [place]. Able to answer questions appropriately, flat affect HEENT: TMs intact no erythema or bulging. Nares is moist he has a deviated septum to the left there is no exudate and no discharge and no ulcerations. Oropharynx is noninjected no exudate teeth are in fair repair. Neck is supple nontender no JVD normal carotid pulse no bruits no thyromegaly no cervical lymphadenopathy. Lungs are clear to auscultation Heart is regular rate and rhythm with a soft systolic murmur over the apex no thrill heave gallop or rub. Abdomen soft and nontender nondistended normal active bowel sounds no bruits no palpable masses Extremities without peripheral cyanosis or edema. He does have abrasion to left forbes and knee from previous fall Neurologic exam he is alert and oriented person place time circumstance. Objective Objective Clinical Data: Abnormal lab results 12/11/19 12/11/19 Range/Units 07:15 07:15 MPV 12.5 H (8.0-11.0) fL Creatinine 1.34 H (0.70-1.30) mg/dL Calcium 10.3 H (8.5-10.1) mg/dL Vital Signs Temperature 36.9 C 12/11/19 07:25 Temperature Source Temporal Artery Scan 12/11/19 07:25 Pulse 52 L 12/11/19 07:25 Pulse Rhythm Regular 12/11/19 10:02 Respiratory Rate 17 12/11/19 07:25 Respiratory Effort Non-Labored 12/11/19 10:02 Respiratory Depth Normal 12/11/19 10:02 Respiratory Pattern Normal 12/11/19 10:02 Blood Pressure 134/80 12/11/19 07:25 Blood Pressure Position Sitting 12/08/19 18:01 Pulse Oximetry 98 12/11/19 07:25 Oxygen Delivery Method Room Air 12/11/19 07:25 Oxygen Flow Rate 0 12/11/19 07:25 Pain Level 0 12/11/19 07:25 Comment 12/09/19 23:49 Intake & Output 12/10/19 12/10/19 12/11/19 11:59 23:59 11:59 Intake Total 540 / 540 600 / 600 Output Total 950 / 2620 1670 / 2620 1800 / 1800 Balance -410 / -2080 -1670 / -2080 -1200 / -1200 Weight 86.2 kg Intake: Oral 540 / 540 600 / 600 Output: Urine 950 / 2620 1670 / 2620 1800 / 1800 Other: Urine Color Yellow Pale Yellow Yellow Urine Appearance Clear Clear Clear Urine Odor None Normal None Voiding Methods Urinal Urinal Urinal Laboratory Results WBC 9.96 10^3/uL (4.4-10.8) 12/11/19 07:15 RBC 5.11 10^6/uL (4.36-5.78) 12/11/19 07:15 Hgb 15.9 g/dL (13.5-17.5) 12/11/19 07:15 Hct 48.4 % (40.0-50.0) 12/11/19 07:15 MCV 94.7 fL (80-95) 12/11/19 07:15 MCH 31.1 pg (27.0-33.0) 12/11/19 07:15 MCHC 32.9 % (32.0-36.0) 12/11/19 07:15 RDW 12.7 % (11.8-14.1) 12/11/19 07:15 Plt Count 212 10^3/uL (130-400) 12/11/19 07:15 MPV 12.5 fL (8.0-11.0) H 12/11/19 07:15 Immature Gran % 0.3 12/08/19 18:26 Neutrophils % 62.0 12/08/19 18:26 Lymphocytes % 19.8 12/08/19 18:26 Monocytes % 12.7 12/08/19 18:26 Eosinophils % 4.8 12/08/19 18:26 Basophils % 0.4 12/08/19 18:26 Nucleated RBC % 0 % 12/08/19 18:26 Absolute Neutrophils 7.29 10^3/uL (1.2-6.7) H 12/08/19 18:26 Absolute Lymphocytes 2.33 10^3/uL (1.2-3.4) 12/08/19 18:26 Absolute Monocytes 1.49 10^3/uL (0.1-0.8) H 12/08/19 18:26 Absolute Eosinophils 0.56 10^3/uL (0.0-0.7) 12/08/19 18:26 Absolute Basophils 0.05 10^3/uL (0.0-0.2) 12/08/19 18:26 Sodium 142 mmol/L (136-145) 12/11/19 07:15 Potassium 4.0 mmol/L (3.5-5.1) 12/11/19 07:15 Chloride 106 mmol/L (98-107) 12/11/19 07:15 Carbon Dioxide 29.3 mmol/L (21.0-32.0) 12/11/19 07:15 Anion Gap 6.7 mmol/L (3-11) 12/11/19 07:15 BUN 14 mg/dL (7-18) 12/11/19 07:15 Creatinine 1.34 mg/dL (0.70-1.30) H 12/11/19 07:15 Estimated GFR/1.73 m2 53.01 (mL/min/1.73m2) 12/11/19 07:15 Glucose 86 mg/dL (74-106) 12/11/19 07:15 Calcium 10.3 mg/dL (8.5-10.1) H 12/11/19 07:15 Total Bilirubin 0.4 mg/dL (0.2-1.0) 12/08/19 18:26 AST 33 U/L (15-37) 12/08/19 18:26 ALT 48 U/L (16-63) 12/08/19 18:26 Alkaline Phosphatase 52 U/L (46-116) 12/08/19 18:26 Total Protein 6.3 g/dL (6.4-8.2) L 12/08/19 18:26 Albumin 3.4 g/dL (3.4-5.0) 12/08/19 18:26 Urine Color Yellow (Yellow) 12/08/19 18:37 Urine Clarity Clear (Clear) 12/08/19 18:37 Urine pH 7.0 (5-8) 12/08/19 18:37 Ur Specific [place] 1.010 (1.005-1.025) 12/08/19 18:37 Urine Protein Negative mg/dL (Negative) 12/08/19 18:37 Urine Ketones Negative mg/dL (Negative) 12/08/19 18:37 Urine Blood Trace-intact (Negative) H 12/08/19 18:37 Urine Nitrite Negative (Negative) 12/08/19 18:37 Urine Bilirubin Negative (Negative) 12/08/19 18:37 Urine Urobilinogen 0.2 EU/dL (Up TO 0.2) 12/08/19 18:37 Ur Leukocyte Esterase Negative (Negative) 12/08/19 18:37 Urine RBC 0-2 HPF (0-2) 12/08/19 18:37 Urine WBC Negative HPF (0-5) 12/08/19 18:37 Ur Epithelial Cells Negative HPF (Negative) 12/08/19 18:37 Urine Crystals Negative HPF (Negative) 12/08/19 18:37 Urine Bacteria Negative HPF (Negative) 12/08/19 18:37 Urine Mucus Negative (Negative) 12/08/19 18:37 Ur Culture Indicated? No 12/08/19 18:37 Urine Glucose Negative mg/dL (Negative) 12/08/19 18:37 Urine Opiates Screen Negative (Negative) 12/08/19 18:37 Urine Methadone Screen Negative (Negative) 12/08/19 18:37 Ur Barbiturates Screen Negative (Negative) 12/08/19 18:37 Ur Tricyclics Screen Negative (Negative) 12/08/19 18:37 Ur Amphetamines Screen Negative (Negative) 12/08/19 18:37 U Benzodiazepines Scrn Negative (Negative) 12/08/19 18:37 Urine Cocaine Screen Negative (Negative) 12/08/19 18:37 Ur THC Screen Negative (Negative) 12/08/19 18:37 Ethyl Alcohol < 3.0 mg/dL (<3) 12/08/19 18:26 COVID-19 PCR Negative (Negative) 12/08/19 20:38 Nasopharyn COVID-19 PCR Not Applicable 12/08/19 20:38 Ref Test Perform Site [facility] 12/08/19 20:38
--- NOTE | 2019-12-11 10:41 | PTTR_ITS ---
Date of service: 12/11/19 Time of Service: 10:41 PT Notes Visit Reasons: AMS, BEHAVIOR CHANGE, POLYMEDICATION 12/11/2019 SUBJECTIVE: Buzz stating he has not slept yet. He notes weakness with ambulation. OBJECTIVE: [id number] TRANSFERS Sit to stand: I Stand to sit: I Sit to supine: I GAIT Device: FWW Weight bearing: Full Assist: SBA Distance: 300' Deviation: Cues to increase stride length ASSESSMENT/PLAN: Pt tolerates increase in gait distance well. He is very fatigued due to lack of actual sleep. Continue to progress as he tolerates. Treatment time: 15' Kaylee Childs PTA Clinic location: [facility] [place], [place]
--- NOTE | 2019-12-11 11:28 | MHPN_ITS ---
Date of service: 12/11/19 Time of Service: 11:28 Mental Health Crisis Note Presenting Issue How did you arrive at the ED and why did you come: Sebas came to the ER on Wednesday via his and daughter. He came due to symptoms believed to be a result of changes in his medication. Precipitating Factors Sebas denied SI and HI. He does not have delusions. Disposition BEHAVIOR: Sebas is mostly oriented and is able to answer although his response time is delayed either because of processing or possibly other symptoms. He is a mayco and gentle man who is struggling with being comfortable. He asks today where he was going again and we discussed the referral that has been made. EYE CONTACT: Eye contact is good. MOOD: Sebas appears depressed and endorses depression. AFFECT: Sebas's affect is flat and blunted. APPETITE: Sebas reported that he is eating but feels his appetite is decreasing. SLEEP(trouble falling/staying asleep: Sebas reports that he is not sleeping well as he is uncomfortable. Plan Sebas is still willing to accept inpatient treatment when available. Signature Clinician's Name/Title: Carol Hale MS, [facility] Emergency Services Clinician
[2019-12-11 15:20] VITALS: BP 130/76; PULSE 52; RESP 17; TEMP 36.3; O2SAT 95
[2019-12-11 19:20] VITALS: BP 150/85; PULSE 61; RESP 18; TEMP 36.4; O2SAT 94
[2019-12-11] MEDS: diazePAM 2 MG TAB PO (20:58)
[2019-12-11] MEDS: Melatonin 3 MG TAB 9 MG PO (20:58)
[2019-12-11] MEDS: Enoxaparin 40 MG/0.4 ML SYR SC (20:59)
[2019-12-11] MEDS: Acetaminophen 325 MG TAB PO (21:13)
[2019-12-12] MEDS: diazePAM 2 MG TAB PO (02:36)
[2019-12-12] MEDS: Acetaminophen 325 MG TAB PO (02:37)
[2019-12-12] MEDS: Benztropine 1 MG TAB PO ×2 (08:45→21:10)
[2019-12-12] MEDS: Magnesium Oxide 400 MG TAB PO (08:45)
[2019-12-12] MEDS: Tamsulosin 0.4 MG CAPCR PO (08:45)
[2019-12-12] MEDS: Omeprazole 20 MG CAPCR PO (08:45)
[2019-12-12] MEDS: amLODIPine 5 MG TAB PO (08:45)
[2019-12-12] MEDS: Loratidine 10 MG TAB PO (08:45)
[2019-12-12] MEDS: Divalproex Sodium 500 MG TAB.ER.24H PO ×2 (08:45→19:52)
[2019-12-12 09:03] VITALS: BP 132/74; PULSE 55; RESP 17; TEMP 37.8; O2SAT 99
--- NOTE | 2019-12-12 10:08 | CMPROGNOTE_ITS ---
- If Service Date Differs Date of service: 12/12/19 Time of Service: 10:08 Care Management Progress Note S/O: Sebas, has been accepted at [facility] pending EKG results. CM has faxed results to [facility]. Sebas will be transported via [facility]. A:Sebas is a 69 year old male with a history of Bipolar, admitted with AMS, behavior changes and polypharmacy and Parkinsonism symptoms. P:Anticipate Sebas will be able to transition to [facility] for medication management. He would also benefit from neurology possible as outpatient. [facility] continues to support patient while at [facility]. Sebas will transport via [facility] to [facility] if accepted.
--- NOTE | 2019-12-12 10:08 | PDOC.CMPRO ---
- If Service Date Differs Date of service: 12/12/19 Time of Service: 10:08 Care Management Progress Note S/O: Sebas, has been accepted at [facility] pending EKG results. CM has faxed results to [facility]. Sebas will be transported via [facility]. A:Sebas is a 69 year old male with a history of Bipolar, admitted with AMS, behavior changes and polypharmacy and Parkinsonism symptoms. P:Anticipate Sebas will be able to transition to [facility] for medication management. He would also benefit from neurology possible as outpatient. [facility] continues to support patient while at [facility]. Sebas will transport via [facility] to [facility] if accepted.
--- NOTE | 2019-12-12 10:31 | W.INMHPGNOTE ---
Date of service: 12/12/19 Time of Service: 10:32 Mental Health Crisis Note Presenting Issue How did you arrive at the ED and why did you come: Sebas arrived to the ER Wednesday via his and daughter due to increase in symptoms after med changes. Precipitating Factors Sebas denied SI and HI. He is not showing any signs of delusions. Disposition BEHAVIOR: Sebas was seen out walking around today as he has been feeling restless. He is asleep when I return to assess but wakes up briefly to talk. Sebas is cooperative and engaged as much as he can be. EYE CONTACT: Eye contact is good but it seems that he is looking past this clinician today. MOOD: Sebas reports he is still sad and depressed. AFFECT: Sebas's affect is flat and blunted. APPETITE: Sebas reported this weekend he does not have much of an appetite but he does still eat. SLEEP(trouble falling/staying asleep: Sebas reported that he thinks he got sleep but still endorses being tired. Plan Sebas is still willing to accept treatment on an inpatient basis. We will continue to seek placement. Signature Clinician's Name/Title: Carol Hale MS, [facility] Emergency Services Clinician
--- NOTE | 2019-12-12 12:18 | PT.INTREAT ---
Date of service: 12/12/19 Time of Service: 09:15 PT Notes Visit Reasons: AMS, BEHAVIOR CHANGE, POLYMEDICATION Inpatient Physical Therapy Treatment Note [facility] Date: 12/12/2019 PRECAUTIONS: Fall SUBJECTIVE: Patient is agreeable to participating in PT. He reports that he is feeling better today because he was able to get some rest. In the afternoon reports that he is feeling tired. OBJECTIVE: PAIN: No c/o pain BED MOBILITY/TRANSFERS Sit-supine: I Sit-stand: I Stand-sit: I GAIT Assistive Device: FWW Weight bearing: Full Assist: S Distance: 300' in a.m.; 200' in p.m. Deviation: Cueing for increased stride length THEREX: Patient completed a LE strengthening program, in a seated position in a.m. and in standing position in p.m., as per flow sheet. Patient requires visual and verbal cueing for proper exercise performance. STAIRS: Up/down 3x4 and 2x6 using B rails and a step-to pattern with supervision, completed in both a.m. and p.m. ASSESSMENT: Patient tolerated sessions without complaint. He was able to tolerate the addition of stair training and ther ex. He would benefit from continued global strengthening and gait training to return to baseline level of function at an independent level. PLAN: Continue with global strengthening and gait training TREATMENT CODE/TIME: Session 1: 30 minutes; 55334, 26005 Session 2: 30 minutes; 98456, [id number]
--- NOTE | 2019-12-12 14:45 | W.PM.PROGNOT ---
Date of Service Date of service: 12/12/19 Time of Service: 14:45 Assessment and Plan Assessment and plan (1) Bipolar disorder: Status: Chronic Assessment and plan: Continue current medications including Depakote and Rexulti and as needed use of Valium. Trazodone dcd due to dry mouth. continues to c/o lack of sleep Refer for inpatient psychiatric care for further adjustment of his medications. This may be also exacerbating his ambulatory dysfunction. 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 Can be done as outpatient (4) Essential hypertension: Status: Chronic Assessment and plan: Resume home dose of amlodipine. Blood pressure improved above case discussed with Dr. Otero who is in agreement Subjective Subjective Interval history since last seen: c/o back and shoulder pain, otherwise no new issues Exam Narrative Exam Narrative: General: Awake alert and oriented. no acute distress, pink warm dry and welll perfused. appears older than stated age HEENT: normocephalic, atraumatic. oral mucosa moist Neck is supple Lungs are clear to auscultation, respirations even and unlabored Heart is regular rate and rhythm Abdomen soft and nontender nondistended normal active bowel sounds Extremities without peripheral cyanosis or edema. He does have abrasion to left forbes and knee from previous fall Neurologic exam he is alert and oriented person place time circumstance. psyche: flat affect, cooperative with no behavioral disturbances Objective Objective Clinical Data: Vital Signs Temperature 37.8 C H 12/12/19 09:03 Temperature Source Tympanic 12/12/19 09:03 Pulse 55 L 12/12/19 09:03 Pulse Rhythm Regular 12/12/19 08:54 Respiratory Rate 17 12/12/19 09:03 Respiratory Effort Non-Labored 12/12/19 08:54 Respiratory Depth Normal 12/12/19 08:54 Respiratory Pattern Normal 12/12/19 08:54 Blood Pressure 132/74 12/12/19 09:03 Blood Pressure Position Sitting 12/08/19 18:01 Pulse Oximetry 99 12/12/19 09:03 Oxygen Delivery Method Room Air 12/12/19 09:03 Oxygen Flow Rate 0 12/12/19 09:03 Pain Level 8 12/11/19 21:13 Comment 12/09/19 23:49 Intake & Output 12/11/19 12/12/19 12/12/19 23:59 11:59 23:59 Intake Total 360 / 960 370 / 550 180 / 550 Output Total 1265 / 3765 1175 / 1675 500 / 1675 Balance -905 / -2805 -805 / -1125 -320 / -1125 Intake: IV Oral 360 / 960 360 / 540 180 / 540 Output: Urine 1265 / 3765 1175 / 1675 500 / 1675 Other: Urine Color Pale Yellow Yellow Yellow Urine Appearance Clear Clear Clear Urine Odor Normal Normal Normal Voiding Methods Urinal Urinal Urinal Laboratory Results WBC 9.96 10^3/uL (4.4-10.8) 12/11/19 07:15 RBC 5.11 10^6/uL (4.36-5.78) 12/11/19 07:15 Hgb 15.9 g/dL (13.5-17.5) 12/11/19 07:15 Hct 48.4 % (40.0-50.0) 12/11/19 07:15 MCV 94.7 fL (80-95) 12/11/19 07:15 MCH 31.1 pg (27.0-33.0) 12/11/19 07:15 MCHC 32.9 % (32.0-36.0) 12/11/19 07:15 RDW 12.7 % (11.8-14.1) 12/11/19 07:15 Plt Count 212 10^3/uL (130-400) 12/11/19 07:15 MPV 12.5 fL (8.0-11.0) H 12/11/19 07:15 Immature Gran % 0.3 12/08/19 18:26 Neutrophils % 62.0 12/08/19 18:26 Lymphocytes % 19.8 12/08/19 18:26 Monocytes % 12.7 12/08/19 18:26 Eosinophils % 4.8 12/08/19 18:26 Basophils % 0.4 12/08/19 18:26 Nucleated RBC % 0 % 12/08/19 18:26 Absolute Neutrophils 7.29 10^3/uL (1.2-6.7) H 12/08/19 18:26 Absolute Lymphocytes 2.33 10^3/uL (1.2-3.4) 12/08/19 18:26 Absolute Monocytes 1.49 10^3/uL (0.1-0.8) H 12/08/19 18:26 Absolute Eosinophils 0.56 10^3/uL (0.0-0.7) 12/08/19 18:26 Absolute Basophils 0.05 10^3/uL (0.0-0.2) 12/08/19 18:26 Sodium 142 mmol/L (136-145) 12/11/19 07:15 Potassium 4.0 mmol/L (3.5-5.1) 12/11/19 07:15 Chloride 106 mmol/L (98-107) 12/11/19 07:15 Carbon Dioxide 29.3 mmol/L (21.0-32.0) 12/11/19 07:15 Anion Gap 6.7 mmol/L (3-11) 12/11/19 07:15 BUN 14 mg/dL (7-18) 12/11/19 07:15 Creatinine 1.34 mg/dL (0.70-1.30) H 12/11/19 07:15 Estimated GFR/1.73 m2 53.01 (mL/min/1.73m2) 12/11/19 07:15 Glucose 86 mg/dL (74-106) 12/11/19 07:15 Calcium 10.3 mg/dL (8.5-10.1) H 12/11/19 07:15 Total Bilirubin 0.4 mg/dL (0.2-1.0) 12/08/19 18:26 AST 33 U/L (15-37) 12/08/19 18:26 ALT 48 U/L (16-63) 12/08/19 18:26 Alkaline Phosphatase 52 U/L (46-116) 12/08/19 18:26 Total Protein 6.3 g/dL (6.4-8.2) L 12/08/19 18:26 Albumin 3.4 g/dL (3.4-5.0) 12/08/19 18:26 Urine Color Yellow (Yellow) 12/08/19 18:37 Urine Clarity Clear (Clear) 12/08/19 18:37 Urine pH 7.0 (5-8) 12/08/19 18:37 Ur Specific [place] 1.010 (1.005-1.025) 12/08/19 18:37 Urine Protein Negative mg/dL (Negative) 12/08/19 18:37 Urine Ketones Negative mg/dL (Negative) 12/08/19 18:37 Urine Blood Trace-intact (Negative) H 12/08/19 18:37 Urine Nitrite Negative (Negative) 12/08/19 18:37 Urine Bilirubin Negative (Negative) 12/08/19 18:37 Urine Urobilinogen 0.2 EU/dL (Up TO 0.2) 12/08/19 18:37 Ur Leukocyte Esterase Negative (Negative) 12/08/19 18:37 Urine RBC 0-2 HPF (0-2) 12/08/19 18:37 Urine WBC Negative HPF (0-5) 12/08/19 18:37 Ur Epithelial Cells Negative HPF (Negative) 12/08/19 18:37 Urine Crystals Negative HPF (Negative) 12/08/19 18:37 Urine Bacteria Negative HPF (Negative) 12/08/19 18:37 Urine Mucus Negative (Negative) 12/08/19 18:37 Ur Culture Indicated? No 12/08/19 18:37 Urine Glucose Negative mg/dL (Negative) 12/08/19 18:37 Urine Opiates Screen Negative (Negative) 12/08/19 18:37 Urine Methadone Screen Negative (Negative) 12/08/19 18:37 Ur Barbiturates Screen Negative (Negative) 12/08/19 18:37 Ur Tricyclics Screen Negative (Negative) 12/08/19 18:37 Ur Amphetamines Screen Negative (Negative) 12/08/19 18:37 U Benzodiazepines Scrn Negative (Negative) 12/08/19 18:37 Urine Cocaine Screen Negative (Negative) 12/08/19 18:37 Ur THC Screen Negative (Negative) 12/08/19 18:37 Ethyl Alcohol < 3.0 mg/dL (<3) 12/08/19 18:26 COVID-19 PCR Negative (Negative) 12/08/19 20:38 Nasopharyn COVID-19 PCR Not Applicable 12/08/19 20:38 Ref Test Perform Site [facility] lab 12/08/19 20:38
--- NOTE | 2019-12-12 15:15 | RT.EKG_ITS ---
APPROVED REPORT Exam: Resting ECG Patient Location: I HR:64 bpm ECG Measurements Heart Rate 64 AXIS MO 175 P 18 QRSd 108 QRS -64 QT 392 T 75 QTc 405 Conclusion Sinus rhythm...normal P axis, V-rate 60- 99 Incomplete RBBB and LAFB...axis(240,-40), S>R II III aVF Left ventricular hypertrophy...multiple voltage criteria
[2019-12-12 15:35] VITALS: BP 123/73; PULSE 64; RESP 19; TEMP 36.9; O2SAT 95
[2019-12-12 19:10] VITALS: BP 147/81; PULSE 62; RESP 17; TEMP 36.8; O2SAT 95
[2019-12-12] MEDS: Enoxaparin 40 MG/0.4 ML SYR SC (21:09)
[2019-12-13 03:30] VITALS: BP 151/78; PULSE 61; RESP 18; TEMP 36.9; O2SAT 95
[2019-12-13 07:56] VITALS: BP 143/83; PULSE 60; RESP 19; TEMP 36.9; O2SAT 97
[2019-12-13] MEDS: Acetaminophen 325 MG TAB PO (08:13)
[2019-12-13] MEDS: Magnesium Oxide 400 MG TAB PO (08:13)
[2019-12-13] MEDS: Tamsulosin 0.4 MG CAPCR PO (08:14)
[2019-12-13] MEDS: Omeprazole 20 MG CAPCR PO (08:14)
[2019-12-13] MEDS: Normal Saline Flush 10 ML SYR IVP (08:14)
[2019-12-13] MEDS: Loratidine 10 MG TAB PO (08:14)
[2019-12-13] MEDS: amLODIPine 5 MG TAB PO (08:14)
[2019-12-13] MEDS: Divalproex Sodium 500 MG TAB.ER.24H PO (08:14)
--- NOTE | 2019-12-13 09:19 | W.PM.DS.N ---
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 (4) Essential hypertension: Status: Chronic Discharge Plan Disposition Patient Disposition: OTHER Condition: Stable Discharge Details Chief Complaint: GenMedical Clinical Impression: Altered mental status, Confusion, Taking multiple medications for chronic disease Reason For Visit: AMS, BEHAVIOR CHANGE, POLYMEDICATION Admit Date/Time: 12/09/19 13:55 Admit Provider: London Bland Attending Provider: London Bland Primary Care Provider: Jose Eduardo Barboza ED Provider: Maude Vee Hospital Course Hospital Course: This is a 69-year-old male with history of bipolar disorder, since hypertension, who was directed to the emergency department by [facility] for concerns of medication management. Initially he believed he was here because of difficulty sleeping due to chronic nasal congestion. His reports concerns that the patient has had increased confusion and difficulty walking and urinary incontinence and joint pain all felt to be related to his psychiatric medications. he has had altered mental status including memory loss and difficulty walking and confusion since a recent change was made in his psychiatric medications. His psychiatric nurse practitioner Monica Morataya had changed his Seroquel and Risperdal and Vraylar to Valium and Rexulti because of concern for the above-mentioned symptoms. Patient's had no symptoms of suicidal or homicidal ideation and no recent fevers and no alcohol or illicit drug use. His urinary incontinence is often related to his inability to ambulate to the bathroom in time when he has a need to void. His chronic nasal congestion has been evaluated by ENT and has had previous nasal endoscopy that was negative for any polyps or obstruction. He has not had a sleep study to evaluate for DANTE. Medically he was cleared in the ED and he was admitted to med/surg pending referral to an inpatient psychiatric hospitalization for medication management. He was here on voluntary status. Routine Covid surveillance on admission was negative. medically he remained stable, eating and drinking and bowels and bladder functioning. case mangement has been following and referral placed at [facility]. he was accepted and transported by EMS. discharge plan discussed with Dr Otero who is in agreement Home Meds and New Rx's Prescriptions: New tamsulosin 0.4 mg Capsule 0.4 mg PO DAILY Qty: 0 RF: 0 benztropine 1 mg Tablet 1 mg PO HS Qty: 0 RF: 0 Continued divalproex 500 mg tablet extended release 24 hr 500 mg PO BID RF: 0 magnesium 250 mg tablet 250 mg PO DAILY Qty: 90 RF: 3 amlodipine 5 mg tablet 5 mg PO DAILY Qty: 90 RF: 3 diazepam [Valium] 2 mg tablet 2 mg PO BID PRN PRNRF: 0 Rexulti 1 mg tablet 1 mg PO QHS RF: 0 Discharge Instructions Instructions: Altered Mental Status (ED) Additional Instructions: medication adjustments per psychiatry. follow up with neurology outpatient Stand Alone Forms: Nursing Discharge Form Referrals: Jose Eduardo Barboza [Primary Care Provider] - Taylor Martin MD [ [facility] STAFF PHYSICIAN] - Activity:: Activity as Tolerated Equipment/Supplies:: No Equipment Needed Diet:: As Tolerated Discharge Orders Discharge Orders: Discharge Order (Routine); Ordered 12/13/19 Ordered By: Henrietta Rm Discharge Data Discharge Date/Time-TO BE ENTERED AT DEPARTURE: 12/13/19 09:44 DS: Summary Status at Discharge Functional status at discharge: independent ambulation Overall status at discharge: patient is not back to baseline Mental Status: mental status grossly normal and other (depressed) Speech and Movement: speech and movement normal Mood: other (depressed) Affect: normal affect and blunted Exam Narrative Exam Narrative: General: Awake alert and oriented. no acute distress, pink warm dry and welll perfused. appears older than stated age HEENT: normocephalic, atraumatic. oral mucosa moist Neck is supple Lungs are clear to auscultation, respirations even and unlabored Heart is regular rate and rhythm Abdomen soft and nontender nondistended normal active bowel sounds Extremities without peripheral cyanosis or edema. He does have abrasion to left forbes and knee from previous fall Neurologic exam he is alert and oriented person place time circumstance. psyche: flat affect, cooperative with no behavioral disturbances Psych Mental Status: mental status grossly normal and other (depressed) Speech and Movement: speech and movement normal Mood: other (depressed) Affect: normal affect and blunted DS: Data Vitals/I&O Vitals and I&O: Vital Signs Temperature 36.9 C 12/13/19 07:56 Temperature Source Tympanic 12/13/19 07:56 Pulse 60 12/13/19 07:56 Pulse Rhythm Regular 12/13/19 02:36 Respiratory Rate 19 12/13/19 07:56 Respiratory Effort Non-Labored 12/13/19 02:36 Respiratory Depth Normal 12/13/19 02:36 Respiratory Pattern Normal 12/13/19 02:36 Blood Pressure 143/83 H 12/13/19 07:56 Blood Pressure Position Sitting 12/08/19 18:01 Pulse Oximetry 97 12/13/19 07:56 Oxygen Delivery Method Room Air 12/13/19 07:56 Oxygen Flow Rate 0 12/13/19 07:56 Pain Level 8 12/13/19 08:13 Comment 12/13/19 03:30 Intake & Output 12/12/19 12/12/19 12/13/19 11:59 23:59 11:59 Intake Total 370 / 550 180 / 550 Output Total 1175 / 2525 1350 / 2525 850 / 850 Balance -805 / -1974 -1170 / -1974 -840 / -840 Intake: IV Oral 360 / 540 180 / 540 Output: Urine 1175 / 2525 1350 / 2525 850 / 850 Other: Urine Color Yellow Yellow Yellow Urine Appearance Clear Clear Clear Urine Odor Normal Normal Voiding Methods Urinal Urinal Urinal [facility] Medical History (Updated 12/10/19 @ 01:02 by Maude Vee DO) Bipolar disorder (Chronic) Breathlessness (Acute) Congenital nasal septum deviation (Acute) Diverticula of colon (Acute) Essential hypertension (Chronic) Nasal turbinate hypertrophy (Acute) Neural hearing loss, bilateral (Acute) Surgical History History of colonoscopy (Chronic) History of orchiectomy, unilateral (Acute) left Family History Mother , 73 Depression Father , 61 Kidney malignancy Heart disease Hyperlipidemia Hypertension Sister No problems noted. Sister No problems noted. Sister Heart disease Hyperlipidemia Hypertension Sister No problems noted. Sister No problems noted. Brother Heart disease Brother , 48 Heart disease Hyperlipidemia Hypertension Maternal Grandfather , 64 Heart disease Hyperlipidemia Hypertension Paternal Grandfather , 56 Heart disease Hyperlipidemia Hypertension Maternal Grandmother , 70 Asthma Stroke Paternal Grandmother , 80 No problems noted. Son No problems noted. Daughter No problems noted. Social History Smoking/Tobacco Use Status: Former Tobacco Use Quit Date: 08/03/18 Quit status: has quit before Alcohol Intake: current Alcohol Intake frequency: holidays/special occasions only Alcohol type: hard liquor Drug use: Never Substance use type: does not use Caregiver/Support person: No Household members: spouse Housing: house Pets and animals: No Sexually active: Yes Do you think of yourself as: straight/heterosexual Current gender identity: male What is your relationship status?: How often do you talk on the phone with friends or family?: twice per week How often do you get together with friends or relatives?: twice per week How often do you attend tenriism or jain services?: 4 or more times per year Do you belong to any clubs or organized social groups?: no Panel score (0-1 are the most socially isolated patients): 3 What type of physical activity do you participate in: walking Duration: 15-30 minutes/day Frequency: daily Eloisa/Orthodoxy: Anabaptist Special eloisa needs: No Do you feel safe at home: Yes Do you feel safe in your relationship?: Yes
--- NOTE | 2019-12-13 09:30 | PDOC.CMDIS ---
- If Service Date Differs Date of service: 12/13/19 Time of Service: 09:31 LACE Index Scoring Tool - Questions: Length of Stay (in days): 4 - 6 Acuity (Admit via E.D.?): Yes E.D. Visits: 1 - Answers: Total Score: 8 Risk of Readmission: Low Risk Care Management Discharge Reason for Hospitalization: AMS, behavior changes and polypharmacy. Discharge Plan: Sebas is being discharged to [facility] today. CM provided the contact number for report to the primary nurse, CM contacted [facility] to coordinate transportation, and contacted the spouse to review plan and notify of discharge. CM put the advance directive in the discharge packet as requested by [facility] to be completed there. Patient/Family Education Needs: Discharge instructions and expecation of transfer. Services Needed at Discharge: Psychiatric Facility, Transportation
--- NOTE | 2019-12-13 09:37 | PT.INTREAT ---
Date of service: 12/13/19 Time of Service: 09:37 PT Notes Visit Reasons: AMS, BEHAVIOR CHANGE, POLYMEDICATION Inpatient Physical Therapy Treatment Note [facility] Date: 12/13/2019 PRECAUTIONS: Fall SUBJECTIVE: states that he is feeling pretty good today, he is pleasant and agreeable to participating in PT. OBJECTIVE: PAIN: No c/o pain BED MOBILITY/TRANSFERS Sit-stand: I Stand-sit: I GAIT Assistive Device: No AD FWW Weight bearing: Full Assist: CGA without AD S with FWW Distance: 50' without AD 200' with FWW Deviation: Cueing for increased stride length and step height throughout, patient reports feeling unsteady without FWW THEREX: Patient completed a resisted LE strengthening program, with 2.5# ankle weights in a standing position, as per flow sheet. He also performed functional [id number] exercises at varying heights, without use of UE. Patient requires visual and verbal cueing for proper exercise performance. STAIRS: Up/down 6x4 and 4x6 using B rails and a step-to pattern with supervision ASSESSMENT: Patient tolerated session without complaint. He was able to tolerate the addition of ankle weights with ther ex. He would benefit from continued global strengthening and gait training to return to baseline level of function at an independent level. PLAN: Continue with global strengthening and gait training TREATMENT CODE/TIME: 25 minutes; [id number], [id number]
--- NOTE | 2019-12-13 12:01 | MHPN_ITS ---
Date of service: 12/13/19 Time of Service: 12:02 Mental Health Crisis Note Presenting Issue How did you arrive at the ED and why did you come: Alok arrived Wednesday via his and daughter. They were seeking support as he has not done well with recent changes in rx's. Precipitating Factors Sebas hs not been SI or HI. He has not shown signs of delusions. Disposition BEHAVIOR: Sebas has been cooperative and friendly. He engages as best he can. EYE CONTACT: Alok makes good eye contact today when he knows you are speaking to him however, he still has a blank like stare. MOOD: Sebas reports he is still feels sad. AFFECT: Sebas appears depressed and withdrawn. His affect is flat. APPETITE: Sebas has been eating but reports that his appetitie is not good. SLEEP(trouble falling/staying asleep: One of Alok's biggest complaints is that he has not slept well. Plan Sebas left today to go to [facility] for evaluation and treatment. He will continue to be followed by [facility] upon discharge. Signature Clinician's Name/Title: Carol Hale MS, [facility] Emergency Services Clinician
--- NOTE | 2019-12-15 08:10 | PT.INDS ---
Date of service: 12/15/19 Time of Service: 08:10 PT Notes Visit Reasons: AMS, BEHAVIOR CHANGE, POLYMEDICATION Inpatient Physical Therapy Discharge Summary Dates: 12/15/2019 Dates of Service: 12/09/2019 through 12/13/2019 This is a clinical summary of care provided on the duration of dates listed above. No charge was made in the completion of this documentation. Referring Doctor: London Bland MD PT Orders: PT CONSULT: Limited ability Precautions: Unstable gait, potential falls, altered mental status Patient Profile/Admitting Diagnosis: admitted after developing altered mental status beyond baseline for bipolar, altered gait pattern, falls, and restlessness due to recent medication changes for management of his bipolar. He is beginning to develop parkinsonian type symptoms, related to his medication. Patient had recent fall when ambulating stairs at his daughter's house, brought to ER by family due to fall and altered status with recent increase in confusion, and restlessness. PMHX: Medical History (Updated 12/08/19 @ 22:10 by London Bland) Bipolar disorder (Chronic) Breathlessness (Acute) Congenital nasal septum deviation (Acute) Diverticula of colon (Acute) Essential hypertension (Chronic) Nasal turbinate hypertrophy (Acute) Neural hearing loss, bilateral (Acute) Surgical History History of colonoscopy (Chronic) History of orchiectomy, unilateral (Acute) left Social History/Home Situation: Patient resides at [facility] during the summer months, with his Isabel. Isabel is his primary diet counselor. He has a daughter who lives locally, involved in his care. A son that lives in [place]. They intend to spend the winter months in [place]. Generally, his independently functioning, without assistive device. Bipolar managed with medication, with episodic mental status changes. Current Functional Limitations: Unstable gait Equipment Owned/DME: None Subjective: NT. See most recent CANDLE WRAPPING MACHINE OPERATOR notes. Objective: General Observation: NT. See most recent CANDLE WRAPPING MACHINE OPERATOR notes. Mental Status: NT. See most recent CANDLE WRAPPING MACHINE OPERATOR notes. Pain: NT. See most recent CANDLE WRAPPING MACHINE OPERATOR notes. ROM: Right Upper Extremity: WNL Left Upper Extremity: WNL Right Lower Extremity: WNL Left Lower Extremity: WNL Strength: Right Upper Extremity: Grossly 5/5 throughout Left Upper Extremity: Grossly 5/5 throughout Right Lower Extremity: Grossly 5/5 throughout Left Lower Extremity: Grossly 5/5 throughout Sensation: WNL Bed Mobility/Transfers: Independent with bed mobility and sit<>stand transfers Gait: 50 feet with no AD with CGA. 200 feet with FWW with supervision with cues required for increased stride. Up and down six 4-inch steps and four 6-inch steps with step over step while holding onto bilateral rails requiring supervision. Balance: Static Sitting: Normal Dynamic Sitting: Normal Static Standing: Good Dynamic Standing: Fair Assessment: Sebas demonstrated improved functional outcomes for this epidsode of care as evidenced during mobility level above goal status below. He is a 69 year old male referred to physical therapy services with the diagnosis of limited ability with ambulatory dysfunction and recent fall, related to bipolar episode with recent change in mental health medications and parkinsonian symptoms related to mental health medications. Goals: Goals X1 week 1. Supine-Sit independent MET 2. Sit-Supine independent MET 3. Sit-Stand independent MET 4. Stand-Sit independent MET 5. Bed-Chair independent MET 6. Chair-Bed independent MET 7. Gait independent, RW NOT MET 8. Stairs independent NOT MET 9. Independent with home exercise program NOT MET 10. Balance but with all dynamic activities NOT MET DISCHARGE RECOMMENDATIONS: Home with family support. Patient will require rolling walker to improve stability with dynamic ambulation and weightbearing activities, as he achieves mental health stability. TREATMENT CODE/TIME: LA Thank you for the opportunity to participate in the care of this patient. Diana Goodrich PT, DPT, CLT [facility] [place], [place]
== END 2019-12-13 09:44 | disposition other institution (70) | DRG 885 ==
LOC: ER 21:07 → MS 21:08
PROVIDERS: Family Medicine; Nurse Practitioner Family; Admitting Provider Internal Medicine; Emergency Provider Physician Assistant; PCP Family Medicine; Visit Provider Internal Medicine
DX: F31.32 Bipolar disorder, current episode depressed, moderate (principal); G21.19 Other drug induced secondary parkinsonism; I10 Essential (primary) hypertension; H90.3 Sensorineural hearing loss, bilateral; R26.9 Unspecified abnormalities of gait and mobility; Z72.820 Sleep deprivation
CPT/HCPCS: 36415; 80048; 80053; 80307; 85027; 97110; 97161; 97530; 99220; 99226; 99233; 99239; 99285; J1650; U0003; 70450; 71045; 80320; 81003; 81015; 85025; 93005; 93010; G0378; J2405; J3490

== ENCOUNTER 2020-02-01 19:23 | Outpatient (CLI) | payer MEDICARE, SELFPAY ==
[2020-02-01 09:11] LABS: Abs Immature Grans 0.05 10^3/uL (0.0-0.06); Absolute Basophil Count 0.04 10^3/uL (0.0-0.2); Absolute Lymphocyte Count 1.95 10^3/uL (1.2-3.4); Absolute Monocyte Count 0.94 10^3/uL (0.1-0.8); Absolute Neutrophil Count 6.27 10^3/uL (1.2-6.7); Basophils % 0.4; Eosinophils % 3.1; HCT 47.1 % (40.0-50.0); HGB 15.7 g/dL (13.5-17.5); Immature Grans % 0.5; Lymphocytes % 20.4; MCH 31.1 pg (27.0-33.0); MCHC 33.3 % (32.0-36.0); MCV 93.3 fL (80-95); MPV 10.8 fL (8.0-11.0); Monocytes % 9.8; Neutrophils % 65.8; Nucleated RBC 0 %; Platelet Count 264 10^3/uL (130-400); RBC 5.05 10^6/uL (4.36-5.78); RDW 12.9 % (11.8-14.1); WBC 9.55 10^3/uL (4.4-10.8)
[2020-02-01 09:23] LABS: VALPROIC ACID 43.2 ug/mL (50-100)
[2020-02-01 09:31] LABS: ALT 29 U/L (16-63); AST 18 U/L (15-37); Albumin 3.6 g/dL (3.4-5.0); Alkaline Phosphatase 82 U/L (46-116); Anion Gap 6.7 mmol/L (3-11); BUN 13 mg/dL (7-18); Bilirubin, Total 0.5 mg/dL (0.2-1.0); CO2 28.3 mmol/L (21.0-32.0); CREATININE 1.27 mg/dL (0.70-1.30); Calcium 9.6 mg/dL (8.5-10.1); Chloride 109 mmol/L (98-107); Glucose 101 mg/dL (74-106); Potassium 4.1 mmol/L (3.5-5.1); Sodium 144 mmol/L (136-145); TSH 1.14 uIU/mL (0.36-3.74); Total Protein 7.4 g/dL (6.4-8.2)
== END 2020-02-01 19:43 ==
PROVIDERS: PCP Family Medicine; Visit Provider Nurse Practitioner Family
DX: F31.13 Bipolar disorder, current episode manic without psychotic features, severe (principal); Z51.81 Encounter for therapeutic drug level monitoring; Z79.899 Other long term (current) drug therapy; E83.41 Hypermagnesemia
CPT/HCPCS: 36415; 80053; 80164; 84443; 85025

== ENCOUNTER 2020-11-19 16:14 | Emergency (ER) | payer OTHER, SELFPAY ==
[2020-11-19 16:19] VITALS: BP 131/82; PULSE 70; RESP 15; TEMP 37; O2SAT 94
--- NOTE | 2020-11-19 16:38 | W.ED.GENAD ---
Discharge Plan Disposition Patient Disposition: HOME Condition: Stable Discharge Details Clinical Impression: Bipolar 1 disorder Primary Care Provider: Jose Eduardo Barboza ED Provider: Sascha Schmidt Home Meds and New Rx's Prescriptions: Continued magnesium 250 mg tablet 250 mg PO DAILY Qty: 90 RF: 3 amlodipine 5 mg tablet 5 mg PO DAILY Qty: 90 RF: 3 tadalafil 5 mg tablet 5 - 20 mg PO DAILY PRN (Reason: sexual activity) Qty: 30 RF: 0 tamsulosin 0.4 mg capsule 0.4 mg PO DAILY Qty: 90 RF: 3 divalproex 500 mg tablet extended release 24 hr 500 - 1,000 mg PO BID Qty: 270 RF: 3 diazepam [Valium] 2 mg tablet 2 mg PO BID PRN PRNRF: 0 Rexulti 1 mg tablet 1 mg PO QHS RF: 0 benztropine 1 mg Tablet 1 mg PO HS Qty: 0 RF: 0 Discharge Instructions Additional Instructions: Follow up with your mental health providers and primary care providers as soon as possible if you feel more ill, have worsening symptoms or thoughts of self harm return to the emergency department Medical Decision Making 70 yo female with history of bipolar comes in with several days of feeling detached from the world. HE states he just doesn't feel like he is in the current reality, he knows he is in [place] , knows the year and his name and is speaking clearly. He has a normal affect, is well kempt and not agitated. He has no pain anywhere, no fever, no chills, perrl, eomi, normal gait. Denies si/hi. I suspect his current description of feeling detached is related to his bipolar, will consult with mental health mental health evaluated and agree he doesn't require admission, is arranging outpatient follow up with pcp and psych, and patient comfortable with plan for discharge Differential Diagnosis Differential Diagnosis: bipolar, hussain HPI General Mode of arrival: ambulatory. Date/Time Provider Initiated Documentation: 11/19/20 16:16. Limitations to Documentation: no limitations. Information obtained by: patient and family. History of Present Illness 70 year old M presents to the emergency department with the chief complaint of feeling detached , described as moderate, Patient started experiencing this day(s) (2) and it has been constant. No relieving factors improve symptom(s), No exacerbating factors reported . Patient notes no other symptoms.. Patient did receive the following treatments prior to arrival, none Related Data Home Medications Medication Instructions Recorded Confirmed amlodipine 5 mg tablet 5 mg PO DAILY #90 tab 10/05/19 11/19/20 magnesium 250 mg tablet 250 mg PO DAILY #90 tab 11/15/19 11/19/20 Rexulti 1 mg PO QHS 12/08/19 11/19/20 diazepam [Valium] 2 mg PO BID PRN PRN 12/08/19 11/19/20 benztropine 1 mg PO HS #0 tab 12/13/19 11/19/20 tadalafil 5 mg tablet 5 - 20 mg PO DAILY PRN #30 tab 01/24/20 11/19/20 tamsulosin 0.4 mg capsule 0.4 mg PO DAILY #90 cap 07/25/20 11/19/20 divalproex 500 mg tablet,extended 500 - 1,000 mg PO BID #270 tab-cap 07/29/20 11/19/20 release 24 hr Previous Rx's Medication Instructions Recorded amlodipine 5 mg tablet 5 mg PO DAILY #90 tab 10/05/19 magnesium 250 mg tablet 250 mg PO DAILY #90 tab 11/15/19 benztropine 1 mg PO HS #0 tab 12/13/19 tadalafil 5 mg tablet 5 - 20 mg PO DAILY PRN #30 tab 01/24/20 tamsulosin 0.4 mg capsule 0.4 mg PO DAILY #90 cap 07/25/20 divalproex 500 mg tablet,extended 500 - 1,000 mg PO BID #270 tab-cap 07/29/20 release 24 hr Allergies Allergy/AdvReac Type Severity Reaction Status Date / Time bee pollen Allergy Severe swelling Verified 01/12/20 10:55 General Stated Complaint: PsychEval SALINA: 2 Review of Systems All systems reviewed & are unremarkable except as noted in HPI and below Constitutional Constitutional: Denies chills, Denies fever(s) and Denies weakness Cardiovascular Cardiovascular: Denies chest pain and Denies dyspnea Respiratory Respiratory: Denies cough and Denies dyspnea Gastrointestinal Gastrointestinal: Denies abdominal pain, Denies nausea and Denies vomiting Neurologic Neurologic: Denies weakness Psychiatric Psychiatric: Denies depression [facility] Medical History (Updated 11/19/20 @ 17:53 by Sascha Schmidt MD) Bipolar disorder Breathlessness Congenital nasal septum deviation Diverticula of colon Essential hypertension Nasal turbinate hypertrophy Neural hearing loss, bilateral Surgical History History of colonoscopy History of orchiectomy, unilateral left Family History Mother , 73 Depression Father , 61 Kidney malignancy Heart disease Hyperlipidemia Hypertension Sister No problems noted. Sister No problems noted. Sister Heart disease Hyperlipidemia Hypertension Sister No problems noted. Sister No problems noted. Brother Heart disease Brother , 48 Heart disease Hyperlipidemia Hypertension Maternal Grandfather , 64 Heart disease Hyperlipidemia Hypertension Paternal Grandfather , 56 Heart disease Hyperlipidemia Hypertension Maternal Grandmother , 70 Asthma Stroke Paternal Grandmother , 80 No problems noted. Son No problems noted. Daughter No problems noted. Social History Smoking/Tobacco Use Status: Former Tobacco Use Quit Date: 08/03/18 Quit status: has quit before Smoking risk assessment performed?: Yes Alcohol Intake: never Drug use: Never Substance use type: does not use Caregiver/Support person: No Household members: spouse Housing: house Pets and animals: No Sexually active: Yes Do you think of yourself as: straight/heterosexual Current gender identity: male What is your relationship status?: How often do you talk on the phone with friends or family?: twice per week How often do you get together with friends or relatives?: twice per week How often do you attend holiness or congregation services?: 4 or more times per year Do you belong to any clubs or organized social groups?: no Panel score (0-1 are the most socially isolated patients): 3 What type of physical activity do you participate in: walking Duration: 15-30 minutes/day Frequency: daily Eloisa/Congregation: Taoist Special eloisa needs: No Do you feel safe at home: Yes Do you feel safe in your relationship?: Yes Exam Const General: no acute distress Orientation: alert HENLA Head: normal to inspection Ears: external ears normal General nose exam: external nose normal Mouth: moist mucous membranes Eyes General: appearance normal, both eyes and all related structures Neck Neck: normal visual inspection Resp Effort & Inspection: normal respiratory effort and able to speak in complete sentences Cardio Rate: regular rate Skin General skin exam: no rashes or lesions noted Neuro General: patient alert and patient oriented x3 Extrem General: normal to inspection Psych Appearance: well kempt Speech and Movement: not agitated, not catatonic and speech clear Affect: normal affect Attitude: cooperative Course Vital Signs Vital signs: Vital Signs Temperature 37 C 11/19/20 16:19 Pulse 70 11/19/20 16:19 Respiratory Rate 15 11/19/20 16:19 Blood Pressure 131/82 11/19/20 16:19 Pulse Oximetry 94 11/19/20 16:19 Temperature 37 C 11/19/20 16:19 Temperature Source Temporal Artery Scan 11/19/20 16:19 Pulse 70 11/19/20 16:19 Respiratory Rate 15 11/19/20 16:19 Respiratory Effort Non-Labored 11/19/20 16:25 Blood Pressure 131/82 11/19/20 16:19 Blood Pressure Position Sitting 11/19/20 16:19 Pulse Oximetry 94 11/19/20 16:19 Oxygen Delivery Method Room Air 11/19/20 16:19 Oxygen Flow Rate 0 11/19/20 16:19
== END 2020-11-19 17:56 | disposition home or self-care (01) ==
PROVIDERS: Emergency Provider Emergency Medicine; PCP Family Medicine
DX: F31.89 Other bipolar disorder (principal)
CPT/HCPCS: 99283

== ENCOUNTER 2020-11-21 12:17 | Emergency (ER) | payer OTHER, SELFPAY ==
[2020-11-21] VITALS (90 sets, daily range): BP systolic 63–162; BP diastolic 33–104; PULSE 39–63; RESP 9–24; TEMP 36.1–36.5; O2SAT 90–100
--- NOTE | 2020-11-21 12:30 | DI.CT_ITS ---
Exam(s) CT HEAD WO EXAM: CT HEAD WO CLINICAL HISTORY: ams. TECHNIQUE: Imaging Protocol: Axial computed tomography images with coronal and sagittal reformatted images were created and reviewed COMPARISON: CT CT HEAD WO from 12/08/2019 FINDINGS: There are no skull fractures nor fluid in the visualized paranasal sinuses. There is no evidence of intracranial hemorrhage, mass effect, or shift of midline structures. There are no extra-axial fluid collections. The ventricles are not enlarged or shifted and there is no blo od within the ventricular system nor within the basal cisterns. Symmetrical involutional changes again noted and appears unchanged from the prior study December 0. IMPRESSION: No acute intracranial findings on this noninfused CT scan of the brain. No significant change compared to the prior CT scan of December 2019. RADIATION DOSE DELIVERED: 870.26mGy.cm Total DLP DATA REPOSITORY: All CT scans at this facility are submitted to the National Radiology Data Registry (NRDR) Dose Index Registry (DIR) with the [employer] (ACR). RADIATION OPTIMIZATION: All CT scans at this facility use at least one of these dose optimization te chniques: automated exposure control; mA and/or kV adjustment per patient size (includes targeted exa ms where dose is matched to clinical indication); or iterative reconstruction.
--- NOTE | 2020-11-21 12:37 | W.ED.GENAD ---
Discharge Plan Disposition Patient Disposition: HOSPITAL, NON-SPECIFIC Condition: Stable Discharge Details Clinical Impression: Bipolar 1 disorder, Altered mental status, Medically noncompliant Primary Care Provider: Jose Eduardo Barboza ED Provider: Elsa Livingston Home Meds and New Rx's Prescriptions: No Action magnesium 250 mg tablet 250 mg PO DAILY Qty: 90 RF: 3 amlodipine 5 mg tablet 5 mg PO DAILY Qty: 90 RF: 3 tadalafil 5 mg tablet 5 - 20 mg PO DAILY PRN (Reason: sexual activity) Qty: 30 RF: 0 tamsulosin 0.4 mg capsule 0.4 mg PO DAILY Qty: 90 RF: 3 divalproex 500 mg tablet extended release 24 hr 500 - 1,000 mg PO BID Qty: 270 RF: 3 diazepam [Valium] 2 mg tablet 2 mg PO BID PRN PRNRF: 0 Rexulti 1 mg tablet 1 mg PO QHS RF: 0 benztropine 1 mg Tablet 1 mg PO HS Qty: 0 RF: 0 Medical Decision Making <JESSICA Bronson - Last Filed: 11/21/20 16:43> This is a 70-year-old gentleman, known to be noncompliant, history of bipolar disorder, hypertension, presenting for noncompliant with the past 2 days, decreased oral intake, and decreased engagement with his roommate. HPI is limited as the patient will open his eyes comfortable extremities, occasionally will shake his head yes or no, but would not answer any of my questions. After speaking with his on the phone this is his baseline when he is not taking his medications. Recent medication changes have been made but he has not initiated these changes, medications were not picked up. At one point he sat and politely asked his nurse request water, drank the water without any difficulty, and then pointed to lying on his side refusing to answer any questions. Examination reveals mild bradycardia which is not new comparing previous visits. I do believe that a component of his presentation behavioral, but will obtain head CT medical screening laboratory values. If medically cleared will request mental health evaluation. He does not pose any obvious threat to himself or others, will not order a CPSO. We will also obtain IV access and give 1 L of IV fluids given his decrease in oral intake. Overall patient is not very talkative but seems to choose when and wit who he will speak with, making examination rather difficult. CT imaging of the brain is unremarkable. Laboratory values reveal mild hemoconcentration but no obvious emergent process. Clinically he is afebrile, no signs of nuchal rigidity. Mental health evaluation requested, please see mental health note. Mental health evaluation was difficult. Plan is to speak with their case supervisor and the patient's Medical Records Medical records reviewed: Yes I reviewed the patient's medical records. Imaging Data Radiologic Study: Attestation: I personally reviewed and interpreted this imaging study as follows: Imaging: CT Scan Radiologist's impression: Exam(s) CT HEAD WO EXAM: CT HEAD WO CLINICAL HISTORY: ams. TECHNIQUE: Imaging Protocol: Axial computed tomography images with coronal and sagittal reformatted images were created and reviewed COMPARISON: CT CT HEAD WO from 12/08/2019 FINDINGS: There are no skull fractures nor fluid in the visualized paranasal sinuses. There is no evidence of intracranial hemorrhage, mass effect, or shift of midline structures. There are no extra-axial fluid collections. The ventricles are not enlarged or shifted and there is no blood within the ventricular system nor within the basal cisterns. Symmetrical involutional changes again noted and appears unchanged from the prior study December 2019. IMPRESSION: No acute intracranial findings on this noninfused CT scan of the brain. No significant change compared to the prior CT scan of December 2019. Lab Data Lab results reviewed: Yes I reviewed the patient's lab results. Labs: Laboratory Tests Range/Units 11/21/20 11/21/20 11/21/20 12:35 12:35 12:53 WBC (4.4-10.8) 10^3/uL 12.56 H RBC (4.36-5.78) 10^6/uL 5.97 H Hgb (13.5-17.5) g/dL 17.8 H Hct (40.0-50.0) % 53.5 H MCV (80-95) fL 89.6 MCH (27.0-33.0) pg 29.8 MCHC (32.0-36.0) % 33.3 RDW (11.8-14.1) % 12.8 Plt Count (130-400) 10^3/uL 315 MPV (8.0-11.0) fL 11.3 H Immature Gran % 0.3 Neutrophils % 69.9 Lymphocytes % 21.0 Monocytes % 6.9 Eosinophils % 1.5 Basophils % 0.4 Nucleated RBC % % 0 Absolute Neutrophils (1.2-6.7) 10^3/uL 8.78 H Absolute Lymphocytes (1.2-3.4) 10^3/uL 2.64 Absolute Monocytes (0.1-0.8) 10^3/uL 0.87 H Absolute Eosinophils (0.0-0.7) 10^3/uL 0.19 Absolute Basophils (0.0-0.2) 10^3/uL 0.05 Sodium (136-145) mmol/L 149 H Potassium (3.5-5.1) mmol/L 3.9 Chloride (98-107) mmol/L 112 H Carbon Dioxide (21.0-32.0) mmol/L 26.4 Anion Gap (3-11) mmol/L 10.6 BUN (7-18) mg/dL 9 Creatinine (0.70-1.30) mg/dL 1.6 H Estimated GFR/1.73 m2 (mL/min/1.73m2) 43.07 Glucose (74-106) mg/dL 102 Calcium (8.5-10.1) mg/dL 10.0 Total Bilirubin (0.2-1.0) mg/dL 0.7 AST (15-37) U/L 21 ALT (16-63) U/L 34 Alkaline Phosphatase (46-116) U/L 107 Total Protein (6.4-8.2) g/dL 7.9 Albumin (3.4-5.0) g/dL 3.9 TSH (0.36-3.74) uIU/mL 0.63 Urine Color (Yellow) Urine Clarity (Clear) Urine pH (5-8) Ur Specific [place] (1.005-1.025) Urine Protein (Negative) mg/dL Urine Ketones (Negative) mg/dL Urine Blood (Negative) Urine Nitrite (Negative) Urine Bilirubin (Negative) Urine Urobilinogen (Up TO 0.2) EU/dL Ur Leukocyte Esterase (Negative) Urine Glucose (Negative) mg/dL Urine Opiates Screen (Negative) Negative Urine Methadone Screen (Negative) Negative Ur Barbiturates Screen (Negative) Negative Ur Tricyclics Screen (Negative) Negative Ur Amphetamines Screen (Negative) Negative U Benzodiazepines Scrn (Negative) Negative Urine Cocaine Screen (Negative) Negative Ur THC Screen (Negative) Negative Ethyl Alcohol (<3) mg/dL < 3.0 COVID-19 Source SARS-CoV-2 (PCR) (Negative) Range/Units 11/21/20 11/21/20 12:53 13:12 WBC (4.4-10.8) 10^3/uL RBC (4.36-5.78) 10^6/uL Hgb (13.5-17.5) g/dL Hct (40.0-50.0) % MCV (80-95) fL MCH (27.0-33.0) pg MCHC (32.0-36.0) % RDW (11.8-14.1) % Plt Count (130-400) 10^3/uL MPV (8.0-11.0) fL Immature Gran % Neutrophils % Lymphocytes % Monocytes % Eosinophils % Basophils % Nucleated RBC % % Absolute Neutrophils (1.2-6.7) 10^3/uL Absolute Lymphocytes (1.2-3.4) 10^3/uL Absolute Monocytes (0.1-0.8) 10^3/uL Absolute Eosinophils (0.0-0.7) 10^3/uL Absolute Basophils (0.0-0.2) 10^3/uL Sodium (136-145) mmol/L Potassium (3.5-5.1) mmol/L Chloride (98-107) mmol/L Carbon Dioxide (21.0-32.0) mmol/L Anion Gap (3-11) mmol/L BUN (7-18) mg/dL Creatinine (0.70-1.30) mg/dL Estimated GFR/1.73 m2 (mL/min/1.73m2) Glucose (74-106) mg/dL Calcium (8.5-10.1) mg/dL Total Bilirubin (0.2-1.0) mg/dL AST (15-37) U/L ALT (16-63) U/L Alkaline Phosphatase (46-116) U/L Total Protein (6.4-8.2) g/dL Albumin (3.4-5.0) g/dL TSH (0.36-3.74) uIU/mL Urine Color (Yellow) Yellow Urine Clarity (Clear) Clear Urine pH (5-8) 8.0 Ur Specific [place] (1.005-1.025) 1.015 Urine Protein (Negative) mg/dL Negative Urine Ketones (Negative) mg/dL Negative Urine Blood (Negative) Negative Urine Nitrite (Negative) Negative Urine Bilirubin (Negative) Negative Urine Urobilinogen (Up TO 0.2) EU/dL 0.2 Ur Leukocyte Esterase (Negative) Negative Urine Glucose (Negative) mg/dL Negative Urine Opiates Screen (Negative) Urine Methadone Screen (Negative) Ur Barbiturates Screen (Negative) Ur Tricyclics Screen (Negative) Ur Amphetamines Screen (Negative) U Benzodiazepines Scrn (Negative) Urine Cocaine Screen (Negative) Ur THC Screen (Negative) Ethyl Alcohol (<3) mg/dL COVID-19 Source Nasal/Nares SARS-CoV-2 (PCR) (Negative) Negative <Elsa Livingston - Last Filed: 11/21/20 23:04> 1639: Care assumed from provider (JESSICA Tabor) Please see their initial HPI, PE, and documentation. Discussed patient details and case and pending workup and disposition. Patient is hemodynamically stable. At this time we are awaiting further direction for mental health. Upon my initial evaluation patient appears to be sleeping is laying on his side with his eyes closed breathing is eupneic. Vital signs are stable he is receiving IV fluids without difficulty. He does not open his eyes to verbal stimulus nor acknowledge my presence in any way. 1735: Spoke with [place] with [facility] who reports that he was able to talk to the patient's who states that she cannot take care of him in this state and does not feel comfortable taking him home. His impression is that the patient is selectively engaging in speaking with certain staff. He does not have anything to go on no suicidal reports or homicidal report. I did recommend having Derrell who is on-call come and speak with him and attempt an evaluation 1 more time due to the pain in his not feeling comfortable taking the patient home. 1826: Derrell with [facility] here at bedside for additional attempt at evaluation, patient continues to not engage with interview, He does open his eyes and stare, and blink, but remains non-verbal, will order a dose of Seroquel if patient willing to take medication,to see if this improves patient condition at the suggestion of Derrell. Will verify dosage. 1857: Patient refused to take medication and was incontinent of urine. Will plan on seeking admission for AMS and catatonia. 1947: Due to no bed availability at this hospital, will seek admission at a lateral facility, Per RN, she moved patient onto back, he opened his eyes, and when asked if he knew where he was he stated no, when asked why he was here he statedno, When asked if he could tell us anything he stated no, then rolled over and closed eyes. patient not opening eyes to verbal, withdraws from painful stimulus. 1957: Call made to [facility] for transfer request due to limited bed availability at this time, [facility] is also ideal because they have the geriatric psych morales, spoke with Dr. Herr who accepts patient for transfer however he is requesting a Lumbar puncture prior to transfer. Dr. Mcneil agrees to perform LP prior to transfer. 2007: Spoke with Sisi who is patients and informed her of plan for lumbar puncture and plan for transfer, she verbalizes understanding. She also relays that patient has been admitted to [facility] approximately 1 year ago for psychiatric reasons. Verbal telephone consent from obtained. LP completed by ER attending Dr. Tarun PAULINO. please see his procedure note above. No complications noted. Specimen sent to the lab. 2131: EMS here for patient transport to [facility]. Patient's status remains largely unchanged. HPI <JESSICA Bronson - Last Filed: 11/21/20 16:43> General Mode of arrival: EMS. Date/Time Provider Initiated Documentation: 11/21/20 12:25. Limitations to Documentation: altered mental status. Information obtained by: family and EMS. HPI Narrative: This is a 60 gentleman, past medical history of bipolar disorder, hypertension, presenting to the ER via EMS for evaluation of noncompliance of his medications for the past 2 days, not taking oral intake, and being engaging than usual. Patient is not willing to engage in examination or history. EMS states he was interactive at times and at other times would not answer any questions. I was able to speak with the of the patient who tells me that this is very typical behavior when he is noncompliant with his medication and is having a exacerbation of his bipolar disorder. She is concerned that he may be dehydrated oral intake in the past couple of days. Denies any suicidal or homicidal gestures. Denies recent illness or trauma. The patient was recently evaluated in our ER, he had a medication change, placed on Seroquel but is not begin taking the medication yet. Related Data Home Medications Medication Instructions Recorded Confirmed amlodipine 5 mg tablet 5 mg PO DAILY #90 tab 10/05/19 11/21/20 magnesium 250 mg tablet 250 mg PO DAILY #90 tab 11/15/19 11/21/20 Rexulti 1 mg PO QHS 12/08/19 11/21/20 diazepam [Valium] 2 mg PO BID PRN PRN 12/08/19 11/21/20 benztropine 1 mg PO HS #0 tab 12/13/19 11/21/20 tadalafil 5 mg tablet 5 - 20 mg PO DAILY PRN #30 tab 01/24/20 11/21/20 tamsulosin 0.4 mg capsule 0.4 mg PO DAILY #90 cap 07/25/20 11/21/20 divalproex 500 mg tablet,extended 500 - 1,000 mg PO BID #270 tab-cap 07/29/20 11/21/20 release 24 hr Previous Rx's Medication Instructions Recorded amlodipine 5 mg tablet 5 mg PO DAILY #90 tab 10/05/19 magnesium 250 mg tablet 250 mg PO DAILY #90 tab 11/15/19 benztropine 1 mg PO HS #0 tab 12/13/19 tadalafil 5 mg tablet 5 - 20 mg PO DAILY PRN #30 tab 01/24/20 tamsulosin 0.4 mg capsule 0.4 mg PO DAILY #90 cap 07/25/20 divalproex 500 mg tablet,extended 500 - 1,000 mg PO BID #270 tab-cap 07/29/20 release 24 hr Allergies Allergy/AdvReac Type Severity Reaction Status Date / Time bee pollen Allergy Severe swelling Verified 11/21/20 16:05 General Stated Complaint: AMS/LOC SALINA: 3 Review of Systems <JESSICA Bronson - Last Filed: 11/21/20 16:43> Unobtainable due to mental condition (Patient will not engage in answering any questions.) PFSH <JESSICA Bronson - Last Filed: 11/21/20 16:43> Medical History Bipolar disorder Breathlessness Congenital nasal septum deviation Diverticula of colon Essential hypertension Nasal turbinate hypertrophy Neural hearing loss, bilateral Surgical History History of colonoscopy History of orchiectomy, unilateral left Family History Mother , 73 Depression Father , 61 Kidney malignancy Heart disease Hyperlipidemia Hypertension Sister No problems noted. Sister No problems noted. Sister Heart disease Hyperlipidemia Hypertension Sister No problems noted. Sister No problems noted. Brother Heart disease Brother , 48 Heart disease Hyperlipidemia Hypertension Maternal Grandfather , 64 Heart disease Hyperlipidemia Hypertension Paternal Grandfather , 56 Heart disease Hyperlipidemia Hypertension Maternal Grandmother , 70 Asthma Stroke Paternal Grandmother , 80 No problems noted. Son No problems noted. Daughter No problems noted. Social History Smoking/Tobacco Use Status: Former Tobacco Use Quit Date: 08/03/18 Quit status: has quit before Smoking risk assessment performed?: Yes Alcohol Intake: never Drug use: Never Substance use type: does not use Caregiver/Support person: No Household members: spouse Housing: house Pets and animals: No Sexually active: Yes Do you think of yourself as: straight/heterosexual Current gender identity: male What is your relationship status?: How often do you talk on the phone with friends or family?: twice per week How often do you get together with friends or relatives?: twice per week How often do you attend faith or uatsdin services?: 4 or more times per year Do you belong to any clubs or organized social groups?: no Panel score (0-1 are the most socially isolated patients): 3 What type of physical activity do you participate in: walking Duration: 15-30 minutes/day Frequency: daily Eloisa/Rastafarian: Holiness Special eloisa needs: No Do you feel safe at home: Yes Do you feel safe in your relationship?: Yes Exam <JESSICA Bronson - Last Filed: 11/21/20 16:43> Const General: healthy appearing and comfortable Orientation: alert and awake [facility] Head: normal to inspection, normocephalic and atraumatic Face and sinus: normal facial exam Mouth: moist mucous membranes abnormal (Slightly dry) Eyes General: appearance normal, both eyes and all related structures Alignment and Position: alignment normal Periorbital: periorbital findings normal Eyelids: eyelids normal Conjunctivae: conjunctivae normal Sclera: sclerae normal Cornea: corneas normal Pupils: PERRL EOM: EOM intact bilaterally Direct ophthalmoscopy: normal light reflex Neck Neck: normal visual inspection, full ROM, no lymphadenopathy, trachea midline, supple and nontender Resp Effort & Inspection: normal respiratory effort and able to speak in complete sentences Auscultation: clear to auscultation bilaterally Cardio Rate: bradycardic (56) Rhythm: regular rhythm GI Palpation: soft and nontender Back/Spine/Pelvis Back: No back tenderness Skin General skin exam: no rashes or lesions noted Neuro General: patient alert, patient awake, moves all extremities and no focal motor deficits Motor: muscle tone normal throughout Sensory Exam: no sensory deficits noted Extrem General: normal to inspection, full ROM, capillary refill normal, no pedal edema and no calf tenderness Psych Appearance: grossly normal Mental Status: mental status grossly normal Course <JESSICA Bronson - Last Filed: 11/21/20 16:43> Vital Signs Vital signs: Vital Signs Temperature 36.1 C L 11/21/20 12:18 Pulse 52 L 11/21/20 12:18 Respiratory Rate 14 11/21/20 12:18 Blood Pressure 138/72 11/21/20 12:18 Pulse Oximetry 100 11/21/20 12:18 Temperature 36.1 C L 11/21/20 12:18 Temperature Source Temporal Artery Scan 11/21/20 12:18 Pulse 52 L 11/21/20 12:18 Respiratory Rate 14 11/21/20 12:18 Blood Pressure 138/72 11/21/20 12:18 Blood Pressure Position Right Lateral 11/21/20 12:18 Pulse Oximetry 100 11/21/20 12:18 Oxygen Delivery Method Room Air 11/21/20 12:18 Oxygen Flow Rate 0 11/21/20 12:18 <Chato Mcneil MD - Last Filed: 11/21/20 20:31> Lumbar Puncture Time Out Performed: Yes Patient Position: left lateral decubitus Skin Prep: Povidone-Iodine 1% Local Anesthetic: Lidocaine 1% Amount of anesthesia used (mL): 2 Spinal Needle Gauge: 20G Interspace Used: L3-L4 Opening Pressure (cmH20): 19 Fluid Initially Obtained: clear Complications: none Additional Comments: obtained on first attempt Sign Out <JESSICA Bronson - Last Filed: 11/21/20 16:43> Sign Out Data: Sign Out Comment: History of bipolar, noncompliant. Has not taken his medications or oral intake in the past 48 hours. Medical screening examination and laboratory complete including negative head CT. Patient received IV fluid. Was recently placed on Seroquel but has not started taking it. Awaiting mental health evaluation and final disposition Last updated by London Marroquin PA at 11/21/20 16:24
[2020-11-21 12:57] LABS: Abs Immature Grans 0.04 10^3/uL (0.0-0.06); Absolute Basophil Count 0.05 10^3/uL (0.0-0.2); Absolute Eosinophil Count 0.19 10^3/uL (0.0-0.7); Absolute Lymphocyte Count 2.64 10^3/uL (1.2-3.4); Absolute Monocyte Count 0.87 10^3/uL (0.1-0.8); Basophils % 0.4; Eosinophils % 1.5; HCT 53.5 % (40.0-50.0); HGB 17.8 g/dL (13.5-17.5); Immature Grans % 0.3; MCH 29.8 pg (27.0-33.0); MCHC 33.3 % (32.0-36.0); MCV 89.6 fL (80-95); MPV 11.3 fL (8.0-11.0); Monocytes % 6.9; Neutrophils % 69.9; Nucleated RBC 0 %; Platelet Count 315 10^3/uL (130-400); RBC 5.97 10^6/uL (4.36-5.78); RDW 12.8 % (11.8-14.1); RDW-SD 42.4 fL; WBC 12.56 10^3/uL (4.4-10.8)
[2020-11-21 13:00] LABS: Absolute Neutrophil Count 8.78 10^3/uL (1.2-6.7)
[2020-11-21] MEDS: Normal Saline 1,000 ML 125 ML IV (13:11)
[2020-11-21 13:16] LABS: Source Nasal/Nares
[2020-11-21 13:17] LABS: ALT 34 U/L (16-63); AST 21 U/L (15-37); Albumin 3.9 g/dL (3.4-5.0); Alkaline Phosphatase 107 U/L (46-116); Anion Gap 10.6 mmol/L (3-11); BUN 9 mg/dL (7-18); Bilirubin, Total 0.7 mg/dL (0.2-1.0); CO2 26.4 mmol/L (21.0-32.0); CREATININE 1.6 mg/dL (0.70-1.30); Chloride 112 mmol/L (98-107); Estimated GFR 43.07 (mL/min/1.73m2); Glucose 102 mg/dL (74-106); Potassium 3.9 mmol/L (3.5-5.1); Sodium 149 mmol/L (136-145); TSH (W/Ref FT4) 0.63 uIU/mL (0.36-3.74); Total Protein 7.9 g/dL (6.4-8.2)
[2020-11-21 13:24] LABS: Bilirubin Negative (Negative); Blood Negative (Negative); Clarity Clear (Clear); Glucose Negative (Negative); Ketones Negative (Negative); Leukocyte Esterase Negative (Negative); Nitrite Negative (Negative); Specific Gravity 1.015 (1.005-1.025); Urobilinogen 0.2 EU/dL (Up TO 0.2)
[2020-11-21 13:26] LABS: ETHANOL BLOOD < 3.0 mg/dL (<3)
[2020-11-21 13:49] LABS: *AMPHETAMINES SCREEN URINE Negative (Negative); *BARBITURATES SCREEN URINE Negative (Negative); *BENZODIAZEPINES SCREEN URINE Negative (Negative); Cannabinoids THC Negative (Negative); Cocaine Screen,Urine Negative (Negative); METHADONE URINE SCREEN Negative (Negative); OPIATES URINE SCREEN Negative (Negative)
[2020-11-21 13:50] LABS: Tricyclic Antidepressants Negative (Negative)
[2020-11-21 14:08] LABS: COVID-19 PCR Negative (Negative)
--- NOTE | 2020-11-21 16:05 | NUR.NOTE ---
home med list from [facility] Note:
--- NOTE | 2020-11-21 19:15 | NUR.NOTE ---
pt not interacting refusing medication x2 attempts provider aware Nursing Note:
[2020-11-21] MEDS: Povidone-Iodine Soln. 118 ML BTL (20:20)
[2020-11-21] MEDS: Normal Saline 1,000 ML 150 ML IV (20:55)
[2020-11-21 21:00] LABS: Glucose (CSF) 62 mg/dL (40-70); Total Protein (CSF) 42 mg/dL (15-45)
[2020-11-21 21:10] LABS: Clarity Clear; RBC 0 /mm3 (0-5); Tube # 4; WBC 0 /uL (0-5); Xanthochromia Absent
--- NOTE | 2020-11-22 10:40 | PDOC.MHCN_ITS ---
Date of service: 11/21/20 Time of Service: 15:10 Mental Health Crisis Note Presenting Issue How did you arrive at the ED and why did you come: The client presented to [facility] ED via EMS for medication noncompliance (1-2 days) and decreased engagement. Precipitating Factors The client is observed to be lying down on his side and did not offer any physical or verbal response when this web content writer attempted to assess. After an initial attempt, the client maintained some eye contact and then turned his head and closed his eyes as if sleeping. Non-verbal prompts to promote a response or some type of engagement were unsuccessful. Per report of attending ER provider, the client had at one point politely asked a nurse for water which he consumed, declined answering questions and went back to his initial presentation. Disposition BEHAVIOR: Withdrawn, not engaged EYE CONTACT: Limited MOOD: N/A AFFECT: Withdrawn APPETITE: N/A SLEEP(trouble falling/staying asleep: N/A Plan The client's disposition is challenging based on engagement level. Per attending ER provider there may be a behavioral component as the client was noted to have engaged with certain people but not others and appears to have enough insight to request fluids. This web content writer consulted with Dr. Brooks about recent medication changes and withdrawal symptoms / lack of engagement / selective-mutism, and it was determined that a reasonable course of action would be to discharge the clie nt and attempt to imitate recommended medication adjustment if the client is not voluntarily presenting for referral for in-patient services. However, the client's reported that she is not able to take care of the client in this state and has declined discharge as an option. The client may benefit from short-term psychiatric inpatient hospitalization for monitored medication adjustment, however there is insufficient evidence to place the client on involuntary status at this time. Per consultation with ES research greenhouse supervisor Janis Ramirez, the tentative plan is to have the ES clinician attempt another assessment and formulate a discharge plan or proceed with voluntary hospitalization if the client is agreeable. Signature Clinician's Name/Title: Aj Yu, [facility] ES clinician / hp
[2020-11-22 22:19] LABS: HSV 1 DNA Result Negative (Negative); HSV 2 DNA Result Negative (Negative)
[2020-11-25 14:49] LABS: VDRL, CSF Negative (Negative)
[2020-11-25 18:01] LABS: West Nile Virus PCR, CSF Negative (Negative)
== END 2020-11-21 21:36 | disposition short-term general hospital (02) ==
PROVIDERS: Emergency Medicine; Physician Assistant; Emergency Provider Registered Nurse Emergency; PCP Family Medicine
DX: F31.9 Bipolar disorder, unspecified (principal); R41.82 Altered mental status, unspecified; Z91.14 Patient's other noncompliance with medication regimen; Z91.19 Patient's noncompliance with other medical treatment and regimen; Z75.1 Person awaiting admission to adequate facility elsewhere; R79.89 Other specified abnormal findings of blood chemistry
CPT/HCPCS: 36415; 36416; 62270; 80053; 80307; 82945; 82962; 87529; 87635; 87798; 89050; 89051; 96360; 96361; 99285; 70450; 80320; 81003; 84157; 84443; 85025; 86592; 87070; 87205

== ENCOUNTER 2020-11-23 20:15 | Observation (INO) | payer OTHER, SELFPAY ==
[2020-11-23] VITALS (10 sets, daily range): BP systolic 140–185; BP diastolic 57–83; PULSE 44–71; RESP 12–20; TEMP 35.8–37.5; O2SAT 94–98
--- NOTE | 2020-11-23 20:15 | DI.CT_ITS ---
Exam(s) CT HEAD WO EXAM: CT HEAD WO CLINICAL HISTORY: AMS. TECHNIQUE: Imaging Protocol: Axial computed tomography images with coronal and sagittal reformatted images were created and reviewed COMPARISON: CT CT HEAD WO from 11/21/2020 FINDINGS: There are no skull fractures nor fluid in the visualized paranasal sinuses. There is no evidence of intracranial hemorrhage, mass effect, or shift of midline structures. There are no extra-axial fluid collections. The ventricles are not enlarged or shifted and there is no blo od within the ventricular system nor within the basal cisterns. Mild symmetrical atrophy again noted. IMPRESSION: No acute intracranial findings on this noninfused CT scan of the brain. No significant change compared to the prior CT scan of 11/21/2020 RADIATION DOSE DELIVERED: 821.86mGy.cm Total DLP DATA REPOSITORY: All CT scans at this facility are submitted to the National Radiology Data Registry (NRDR) Dose Index Registry (DIR) with the [employer] (A[employer]). RADIATION OPTIMIZATION: All CT scans at this facility use at least one of these dose optimization te chniques: automated exposure control; mA and/or kV adjustment per patient size (includes targeted exa ms where dose is matched to clinical indication); or iterative reconstruction.
--- NOTE | 2020-11-23 20:15 | RT.EKG_ITS ---
APPROVED REPORT Exam: Resting ECG Reason for Exam: unresponsive Patient Location: E HR:56 bpm ECG Measurements Heart Rate 56 AXIS SD [id number] P [id number] QRSd 128 QRS -51 QT 493 T 41 QTc 477 Conclusion Atrial fibrillation...? atrial activity Ventricular premature complex...V complex w/ short R-R interval RBBB and LAFB...QRSd >120mS, axis(-40,240) Probable left ventricular hypertrophy...(RaVL+SV3)xQRSd >280 Not a-fib; sinus trudi with PVC Left [place] RBBB No STEMI
--- NOTE | 2020-11-23 20:22 | ED.GENADUL_ITS ---
Discharge Plan Disposition Patient Disposition: [facility] INPATIENT Condition: Stable Discharge Details Clinical Impression: Bipolar disorder Primary Care Provider: Jose Eduardo Barboza ED Provider: Chato Mcneil Home Meds and New Rx's Prescriptions: No Action magnesium 250 mg tablet 250 mg PO DAILY Qty: 90 RF: 3 amlodipine 5 mg tablet 5 mg PO DAILY Qty: 90 RF: 3 tadalafil 5 mg tablet 5 - 20 mg PO DAILY PRN (Reason: sexual activity) Qty: 30 RF: 0 tamsulosin 0.4 mg capsule 0.4 mg PO DAILY Qty: 90 RF: 3 divalproex 500 mg tablet extended release 24 hr 500 - 1,000 mg PO BID Qty: 270 RF: 3 diazepam [Valium] 2 mg tablet 2 mg PO BID PRN PRNRF: 0 Rexulti 1 mg tablet 1 mg PO QHS RF: 0 benztropine 1 mg Tablet 1 mg PO HS Qty: 0 RF: 0 Medical Decision Making Obtain records from [facility]. Patient woke up on his own. Reportedly evaluated by psychiatry and discharged with no change in his medications. He received no new medications while in the hospital. reports that he was fine until he got home and then refused to get out of the car. Patient taken out of his eye past. Rectal core temp here 99. Temperature sensing Funk placed with clear urine output. Second IV established and LR started. Laboratory studies sent including CPK, acetaminophen, salicylate acid, alcohol. CT head ordered. EKG obtained. Patient repeat work-up here remains unremarkable except for elevated white count which I suspect is stress reaction. Labs are otherwise unremarkable for the most part. Potassium a little low which will be replaced. Head CT negative. Urinalysis negative. Case discussed with hospitalist. Patient to be admitted for medical clearance with a sitter on telemetry. Will need psychiatric consult once awake and conversant. Patient remained stable and unchanged in the ED. Medical Records Medical records reviewed: Yes I reviewed the patient's medical records. Lab Data Lab results reviewed: Yes I reviewed the patient's lab results. ECG Data Attestation: I personally reviewed and interpreted this ECG (s) as follows: Prior ECG tracings: available for review Interpretation: see EKG HPI General Mode of arrival: EMS . Date/Time Provider Initiated Documentation: 11/23/20 20:18 . Limitations to Documentation: altered mental status . Information obtained by: family, EMS, RN notes reviewed and old records reviewed . HPI Narrative: Patient presents to ED by ambulance after reportedly being in a hot car with the windows up for the last 3 hours and is now unresponsive. Patient was just released from [facility] and per EMS possible serotonin syndrome due to new medications being started. EMS reports the told them he has been in the car refusing to come out for the last 3 hours. EMS able to establish IV and also packed him in ice with the assumption that his altered mental status/unresponsiveness was related to heatstroke versus serotonin syndrome. I had actually been involved in this patient's care here in the ED couple of days ago when he presented with unresponsiveness. Work-up was completely negative including head CT and lumbar puncture. He was transferred to [facility] due to lack of beds here. Patient arrives here unresponsive but would not allow me to open his eyes and when his hand was placed over his face and allowed to drop, the arm/hand moved to the chest. Patient's eventually checked into the emergency department with panic attack. I was able to question her regarding her . released from [facility] today. As soon as he got home he refused to get out of the car. He would not put windows down. She kept opening the doors but he would keep shutting them. Eventually became unresponsive at which point she called EMS. Related Data Home Medications Medication Instructions Recorded Confirmed amlodipine 5 mg tablet 5 mg PO DAILY #90 tab 10/05/19 11/21/20 magnesium 250 mg tablet 250 mg PO DAILY #90 tab 11/15/19 11/21/20 Rexulti 1 mg PO QHS 12/08/19 11/21/20 diazepam [Valium] 2 mg PO BID PRN PRN 12/08/19 11/21/20 benztropine 1 mg PO HS #0 tab 12/13/19 11/21/20 tadalafil 5 mg tablet 5 - 20 mg PO DAILY PRN #30 tab 01/24/20 11/21/20 tamsulosin 0.4 mg capsule 0.4 mg PO DAILY #90 cap 07/25/20 11/21/20 divalproex 500 mg tablet,extended 500 - 1,000 mg PO BID #270 tab-cap 07/29/20 11/21/20 release 24 hr Previous Rx's Medication Instructions Recorded amlodipine 5 mg tablet 5 mg PO DAILY #90 tab 10/05/19 magnesium 250 mg tablet 250 mg PO DAILY #90 tab 11/15/19 benztropine 1 mg PO HS #0 tab 12/13/19 tadalafil 5 mg tablet 5 - 20 mg PO DAILY PRN #30 tab 01/24/20 tamsulosin 0.4 mg capsule 0.4 mg PO DAILY #90 cap 07/25/20 divalproex 500 mg tablet,extended 500 - 1,000 mg PO BID #270 tab-cap 07/29/20 release 24 hr Allergies Allergy/AdvReac Type Severity Reaction Status Date / Time bee pollen Allergy Severe swelling Verified 11/21/20 16:05 General SALINA: 3 Review of Systems Unobtainable due to mental status [facility] Medical History Bipolar disorder Congenital nasal septum deviation Diverticula of colon Essential hypertension Hyperlipidemia, unspecified Nasal turbinate hypertrophy Neural hearing loss, 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 Sister No problems noted. Sister Heart disease Hyperlipidemia Hypertension Sister No problems noted. Sister No problems noted. Brother Heart disease Brother , 48 Heart disease Hyperlipidemia Hypertension Maternal Grandfather , 64 Heart disease Hyperlipidemia Hypertension Paternal Grandfather , 56 Heart disease Hyperlipidemia Hypertension Maternal Grandmother , 70 Asthma Stroke Paternal Grandmother , 80 No problems noted. Son No problems noted. Daughter No problems noted. Social History Smoking/Tobacco Use Status: Former Tobacco Use Quit Date: 08/03/18 Quit status: has quit before Smoking risk assessment performed?: Yes Alcohol Intake: never Drug use: Never Substance use type: does not use Caregiver/Support person: No Household members: spouse Housing: house Pets and animals: No Sexually active: Yes Do you think of yourself as: straight/heterosexual Current gender identity: male What is your relationship status?: How often do you talk on the phone with friends or family?: twice per week How often do you get together with friends or relatives?: twice per week How often do you attend denominational or evangelical services?: 4 or more times per year Do you belong to any clubs or organized social groups?: no Panel score (0-1 are the most socially isolated patients): 3 What type of physical activity do you participate in: walking Duration: 15-30 minutes/day Frequency: daily Eloisa/Yazidi: Jewish Special eloisa needs: No Do you feel safe at home: Yes Do you feel safe in your relationship?: Yes Exam Narrative Exam Narrative: Const: WDWN elderly male unresponsive. HEENT: NC/AT. Normal facial exam. Eyes: Unable to get eyes open as patient squeezes them shut. Neck: Supple. Trachea midline. Lungs: Normal respiratory effort. Lungs are clear. Cor: RRR without murmur/gallop. Rhett. Good radial pulses. GI: Soft. NT/ND. Neuro: Unresponsive but squeezes eyes shut and protects face with arm drop. No rigidity in extremities. At one point, opened eyes, sat up and looked around, then lied back down and resumed unresponsiveness Ext: No C/C/E. Skin: Cold and erythematous from being packed in ice.
[2020-11-23] MEDS: Lactated Ringers 2,000 ML 1000 ML IV (20:30)
[2020-11-23 20:39] LABS: Abs Immature Grans 0.08 10^3/uL (0.0-0.06); Absolute Basophil Count 0.07 10^3/uL (0.0-0.2); Absolute Neutrophil Count 11.95 10^3/uL (1.2-6.7); Basophils % 0.4; Eosinophils % 1.4; HCT 50.9 % (40.0-50.0); HGB 16.8 g/dL (13.5-17.5); Immature Grans % 0.5; Lymphocytes % 19.6; MCH 30.3 pg (27.0-33.0); MCV 91.7 fL (80-95); MPV 11.2 fL (8.0-11.0); Monocytes % 9.1; Nucleated RBC 0 %; Platelet Count 278 10^3/uL (130-400); RBC 5.55 10^6/uL (4.36-5.78); RDW 12.7 % (11.8-14.1); RDW-SD 43.5 fL; WBC 17.32 10^3/uL (4.4-10.8)
[2020-11-23 20:43] LABS: Absolute Eosinophil Count 0.24 10^3/uL (0.0-0.7); Absolute Lymphocyte Count 3.39 10^3/uL (1.2-3.4); Absolute Monocyte Count 1.58 10^3/uL (0.1-0.8)
[2020-11-23] MEDS: Lidocaine 2% Jelly 11 ML SYR (20:45)
[2020-11-23 20:54] LABS: ALT 26 U/L (16-63); AST 23 U/L (15-37); Albumin 3.7 g/dL (3.4-5.0); Alkaline Phosphatase 98 U/L (46-116); Anion Gap 10.8 mmol/L (3-11); BUN 18 mg/dL (7-18); Bilirubin, Total 0.7 mg/dL (0.2-1.0); CO2 24.2 mmol/L (21.0-32.0); CREATININE 1.7 mg/dL (0.70-1.30); Chloride 106 mmol/L (98-107); Creatine Kinase 271 U/L (39-308); Estimated GFR 40.16 (mL/min/1.73m2); Glucose 111 mg/dL (74-106); Magnesium 1.9 mg/dL (1.8-2.4); Potassium 3.2 mmol/L (3.5-5.1); Sodium 141 mmol/L (136-145); Total Protein 7.5 g/dL (6.4-8.2)
[2020-11-23 20:56] LABS: Troponin I < 0.05 ng/mL (<0.06)
[2020-11-23 21:03] LABS: Bilirubin Negative (Negative); Blood Negative (Negative); Clarity Clear (Clear); Glucose Negative (Negative); Ketones Negative (Negative); Leukocyte Esterase Negative (Negative); Nitrite Negative (Negative); Specific Gravity <= 1.005 (1.005-1.025); Urobilinogen 0.2 EU/dL (Up TO 0.2); pH 5.5 (5-8)
[2020-11-23 21:05] LABS: Acetaminophen < 2 ug/mL (10-30); ETHANOL BLOOD < 3.0 mg/dL (<3); Salicylate < 2.8 mg/dL (<2.8)
[2020-11-23 21:13] LABS: Diff Comment Agrees w/ Instrument; RBC Morphology Normal
[2020-11-23 21:37] LABS: *AMPHETAMINES SCREEN URINE Negative (Negative); *BARBITURATES SCREEN URINE Negative (Negative); *BENZODIAZEPINES SCREEN URINE Negative (Negative); Cannabinoids THC Negative (Negative); Cocaine Screen,Urine Negative (Negative); METHADONE URINE SCREEN Negative (Negative); OPIATES URINE SCREEN Negative (Negative)
[2020-11-23 21:38] LABS: Tricyclic Antidepressants Negative (Negative)
--- NOTE | 2020-11-23 21:41 | DI.VRAD_ITS ---
PROCEDURE INFORMATION: Exam: CT Head Without Contrast Exam date and time: 11/23/2020 8:23 PM Age: 70 years old Clinical indication: Altered mental status / memory loss TECHNIQUE: Imaging protocol: Computed tomography of the head without contrast. COMPARISON: CT HEAD WO 11/21/2020 and 12/08/2019 FINDINGS: Brain: No acute intracranial hemorrhage. Diffuse cerebral atrophy. Cerebral ventricles: Ventricular prominence in this patient with diffuse cerebral atrophy. Paranasal sinuses: No significant disease of the paranasal sinuses. Mastoid air cells: No mastoiditis. Vasculature: Arterial calcification. Bones/joints: Unremarkable. No acute fracture. Soft tissues: Unremarkable. IMPRESSION: No acute intracranial findings - no acute change compared to 11/21/2020 or 12/08/2019 CT head examinations. Dictated and Authenticated by: Leonel Gibson MD. Ordering:LADARIUS Reis MD
[2020-11-23 21:51] LABS: Source Nasal/Nares
[2020-11-23 22:41] LABS: COVID-19 PCR Negative (Negative)
[2020-11-23] MEDS: POTASSIUM CHLORIDE 10 MEQ/100 ML BAG 100 MEQ IVPB (23:09)
[2020-11-23] MEDS: POTASSIUM CHLORIDE 10 MEQ/100 ML BAG 50 MEQ IVPB (23:11)
--- NOTE | 2020-11-23 23:39 | HPE_ITS ---
Date of service: 11/23/20 Time of Service: 23:39 Assessment and Plan Assessment and plan (1) Altered mental status: Status: Acute Assessment and plan: At this point, etiology is unclear. DDx: Psychiatric condition (catatonia) +/- medications +/- overheating +/- sleeping disorder. Additionally, the patient is on depakote, bupropion, rexulti, mirtazapine - seizures are on the differential. Given presence of Atrial futter on EKG, however, I do think he would benefit from an MRI of his brain as well as an echo on Wednesday. Will give rectal asa. Monitor on tele. Neurochecks q4h. Not medically cleared at this time. NPO until mental status better. (2) Atrial flutter by electrocardiogram: Status: Acute Assessment and plan: Per my review of patient's prior EKGs, this is not new, but was not listed in his prior hx. He is not on blood thinners as outpatient. Will check echo. Given bradycardia on arrival, suspect sick sinus syndrome. Monitor on tele. (3) Exposure to excessive natural heat: Status: Acute Assessment and plan: There has not been any evidence of hyperthermia so far. Continue IVF. I think it is safe to monitor the patient on tele on medical surgical floor rather than in the ICU. (4) Bipolar 1 disorder: Status: Chronic Assessment and plan: Admit with mental health and possibly psychiatry consult. CPSO. Patient is not able to take PO medications at this time due to mental status; these are on hold. (5) DVT prophylaxis: Status: Acute Assessment and plan: lovenox sc (6) Discharge planning issues: Status: Acute Assessment and plan: Full code History of Present Illness History of Present Illness Chief Complaint: Patient spent 3-4 hours in a locked car on a hot day; unresponsive. Narrative: Mr Shepherd is a 70 year old male with PMHx of Bipolar 1 d/o, hypertension, CKD 3, sleep disturbance, who was brought to [facility] ED today by EMS after being found in a hot car unresponsive. The patient had just been discharged from the [facility] earlier today and was driven home by his . Upon arrival home, per the ED provider, the patient refused to leave the car, locking it and unlocking it multiple times from the inside. To the best of the 's knowledge, he did not have an opportunity to overdose. He remained in the car for at least 3 hours, at which point he became unresponsive, and EMS were called. It is not clear what the patient's temperature was when measured by EMS. He was placed on ice and taken to the ED. Here, he was found to not be hyperthermic. He did have a leucocytosis of 17, but has not had any evidence of infectious process. Moreover, he had an extensive medical workup in our ED on 11/21, including a negative LP, when he had presented to the ED with AMS at that time. In fact, the patient was evaluated at [facility] ED on 11/19 with chief complaint of feeling detached and was cleared by mental health stand point. On his visit to the ED on 11/21, his condition was described as catatonic. He was felt to require further psychiatric hospitalization at that time by mental health, but due to lack of available beds, he was transferred to [facility], where he was cleared for discharge home today with outpatient psychiatric follow up without any medication changes on discharge. The patient was initially bradycardic to the 40s in the ED. His HS is now up to 60s-70s. While initially, his condition was described as obtunded, he now follows some commands, but has not yet been verbal. Reportedly, in the ED, he was able to sit up and then lay back down. He had a hartman catheter with a temperature probe placed in the ED. He has not been hyperthermic there. His latest tempt is 35.8. He was initiated on IVF. Hospitalist admission was requested. On my interview/exam with the patient, he does open eyes upon 6th or 7th time of me asking him to do so, but does not keep them open to permit a full exam. When I try to open them, he resists. He has been able to move all 4 extremities. He has remained nonverbal since arrival to medical surgical floor. Review of Systems Unobtainable due to mental status [facility] Medical History Bipolar disorder Congenital nasal septum deviation Diverticula of colon Essential hypertension Hyperlipidemia, unspecified Nasal turbinate hypertrophy Neural hearing loss, 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 Sister No problems noted. Sister Heart disease Hyperlipidemia Hypertension Sister No problems noted. Sister No problems noted. Brother Heart disease Brother , 48 Heart disease Hyperlipidemia Hypertension Maternal Grandfather , 64 Heart disease Hyperlipidemia Hypertension Paternal Grandfather , 56 Heart disease Hyperlipidemia Hypertension Maternal Grandmother , 70 Asthma Stroke Paternal Grandmother , 80 No problems noted. Son No problems noted. Daughter No problems noted. Social History Smoking/Tobacco Use Status: Former Tobacco Use Quit Date: 08/03/18 Quit status: has quit before Smoking risk assessment performed?: Yes Alcohol Intake: never Drug use: Never Substance use type: does not use Caregiver/Support person: No Household members: spouse Housing: house Pets and animals: No Sexually active: Yes Do you think of yourself as: straight/heterosexual Current gender identity: male What is your relationship status?: How often do you talk on the phone with friends or family?: twice per week How often do you get together with friends or relatives?: twice per week How often do you attend protestant or adventism services?: 4 or more times per year Do you belong to any clubs or organized social groups?: no Panel score (0-1 are the most socially isolated patients): 3 What type of physical activity do you participate in: walking Duration: 15-30 minutes/day Frequency: daily Eloisa/Protestant: Bahai Special eloisa needs: No Do you feel safe at home: Yes Do you feel safe in your relationship?: Yes Meds Allergies and Home Medications Allergies Allergy/AdvReac Type Severity Reaction Status Date / Time bee pollen Allergy Severe swelling Verified 11/23/20 22:06 Home Medications Medication Instructions Recorded Confirmed Type amlodipine 5 mg tablet 5 mg PO DAILY #90 tab 10/05/19 11/23/20 Rx Rexulti 1 mg PO QHS 12/08/19 11/23/20 History tamsulosin 0.4 mg capsule 0.4 mg PO DAILY #90 cap 07/25/20 11/23/20 Rx divalproex 500 mg tablet,extended 500 - 1,000 mg PO BID #270 tab-cap 07/29/20 11/23/20 Rx release 24 hr bupropion HCl 100 mg PO DAILY 11/23/20 11/23/20 History cetirizine 10 mg PO DAILY 11/23/20 11/23/20 History fluticasone propionate 1 spray INTRANASAL HS 11/23/20 11/23/20 History magnesium oxide 400 mg PO DAILY 11/23/20 11/23/20 History melatonin 6 mg PO HS 11/23/20 11/23/20 History mirtazapine 15 mg PO HS 11/23/20 11/23/20 History quetiapine 50 mg PO TID 11/23/20 11/23/20 History rosuvastatin 5 mg PO DAILY 11/23/20 11/23/20 History Exam Narrative Exam Narrative: General: Middle-aged male who appears well groomed, follows some commands, nonverbal; appears to be sleeping. No apneic episodes observed. No cyanosis. Neurological: CN II-XII seemingly intact, able to move all 4 extremities against resistance, follows some commands. Nonverbal. Unable to fully evaluate motor/sensory function due to mental status, no rigidity Psychiatric: Nonverbal and not consistently cooperative Skin: Visible skin intact HEENT: Atraumatic, normocephalic; when eyes briefly opened, appeared to have EOMI, dry MM, not opening mouth to permit oropharyngeal exam, no lymphadenopathy, goiter or jVD Cardiovascular: RRR, bradycardic (50s) Lungs: CTAB anteriorly Gastrointestinal: soft,nondistended, + BS Genitourinary: has a hartman Extremities: no edema BLE's, able to move all 4 extremities, +1 pedal pulses B Results Imaging Additional studies: CT head w/o contrast: No acute intracranial findings - no acute change compared to 11/21/2020 or 12/08/2019 CT head examinations. EKG: Atrial flutter with PVCs, HR 56,incomplete RBBB/LAFB, no acute ischemia. Atrial flutter was seen on EKG from 11/25/2019. Labs Result diagrams: 11/23/20 20:25 11/23/20 20:25 Labs: Laboratory Results - last 24 hr 11/23/20 11/23/20 11/23/20 20:25 20:25 20:25 WBC 17.32 H RBC 5.55 Hgb 16.8 Hct 50.9 H MCV 91.7 MCH 30.3 MCHC 33.0 RDW 12.7 Plt Count 278 MPV 11.2 H Immature Gran % 0.5 Neutrophils % 69.0 Lymphocytes % 19.6 Monocytes % 9.1 Eosinophils % 1.4 Basophils % 0.4 Nucleated RBC % 0 Absolute Neutrophils 11.95 H Absolute Lymphocytes 3.39 Absolute Monocytes 1.58 H Absolute Eosinophils 0.24 Absolute Basophils 0.07 RBC Morphology Normal Sodium 141 Potassium 3.2 L Chloride 106 Carbon Dioxide 24.2 Anion Gap 10.8 BUN 18 D Creatinine 1.7 H Estimated GFR/1.73 m2 40.16 Glucose 111 H Calcium 9.0 Magnesium 1.9 Total Bilirubin 0.7 AST 23 ALT 26 Alkaline Phosphatase 98 Creatine Kinase 271 Troponin I < 0.05 Total Protein 7.5 Albumin 3.7 Urine Color Urine Clarity Urine pH Ur Specific Gladys Urine Protein Urine Ketones Urine Blood Urine Nitrite Urine Bilirubin Urine Urobilinogen Ur Leukocyte Esterase Urine Glucose Salicylates < 2.8 Urine Opiates Screen Urine Methadone Screen Acetaminophen < 2 Ur Barbiturates Screen Ur Tricyclics Screen Ur Amphetamines Screen U Benzodiazepines Scrn Urine Cocaine Screen Ur THC Screen Ethyl Alcohol < 3.0 COVID-19 Source SARS-CoV-2 (PCR) 11/23/20 11/23/20 11/23/20 20:50 20:50 21:45 WBC RBC Hgb Hct MCV MCH MCHC RDW Plt Count MPV Immature Gran % Neutrophils % Lymphocytes % Monocytes % Eosinophils % Basophils % Nucleated RBC % Absolute Neutrophils Absolute Lymphocytes Absolute Monocytes Absolute Eosinophils Absolute Basophils RBC Morphology Sodium Potassium Chloride Carbon Dioxide Anion Gap BUN Creatinine Estimated GFR/1.73 m2 Glucose Calcium Magnesium Total Bilirubin AST ALT Alkaline Phosphatase Creatine Kinase Troponin I Total Protein Albumin Urine Color Yellow Urine Clarity Clear Urine pH 5.5 Ur Specific Gladys <= 1.005 Urine Protein Negative Urine Ketones Negative Urine Blood Negative Urine Nitrite Negative Urine Bilirubin Negative Urine Urobilinogen 0.2 Ur Leukocyte Esterase Negative Urine Glucose Negative Salicylates Urine Opiates Screen Negative Urine Methadone Screen Negative Acetaminophen Ur Barbiturates Screen Negative Ur Tricyclics Screen Negative Ur Amphetamines Screen Negative U Benzodiazepines Scrn Negative Urine Cocaine Screen Negative Ur THC Screen Negative Ethyl Alcohol COVID-19 Source Nasal/Nares SARS-CoV-2 (PCR) Negative Last Vital Signs Temp 35.8 C L 11/23/20 22:30 Pulse 69 11/23/20 22:30 Resp 16 11/23/20 22:30 BP 152/64 H 11/23/20 22:30 Pulse Ox 96 11/23/20 22:30
[2020-11-24 00:08] LABS: Troponin I < 0.05 ng/mL (<0.06)
[2020-11-24 00:17] VITALS: PULSE 55
[2020-11-24] MEDS: Normal Saline Flush 10 ML SYR IVP (01:09)
[2020-11-24] MEDS: Aspirin 300 MG SUPP PR (01:11)
[2020-11-24] MEDS: Lactated Ringers 1,000 ML 150 ML IV (01:14)
[2020-11-24 03:27] VITALS: BP 158/74; PULSE 48; RESP 16; TEMP 36.9; O2SAT 96
[2020-11-24 07:00] VITALS: PULSE 50
[2020-11-24 07:00] LABS: Abs Immature Grans 0.04 10^3/uL (0.0-0.06); Absolute Basophil Count 0.03 10^3/uL (0.0-0.2); Absolute Lymphocyte Count 2.74 10^3/uL (1.2-3.4); Absolute Monocyte Count 0.99 10^3/uL (0.1-0.8); Basophils % 0.2; HCT 53.3 % (40.0-50.0); HGB 17.6 g/dL (13.5-17.5); Immature Grans % 0.3; Lymphocytes % 20.2; MCH 29.6 pg (27.0-33.0); MCV 89.7 fL (80-95); MPV 12.1 fL (8.0-11.0); Monocytes % 7.3; Nucleated RBC 0 %; Platelet Count 302 10^3/uL (130-400); RBC 5.94 10^6/uL (4.36-5.78); RDW 12.9 % (11.8-14.1); RDW-SD 42.1 fL; WBC 13.58 10^3/uL (4.4-10.8)
[2020-11-24 07:07] LABS: Absolute Eosinophil Count 0.14 10^3/uL (0.0-0.7); Absolute Neutrophil Count 9.64 10^3/uL (1.2-6.7)
[2020-11-24 07:22] LABS: Hemoglobin A1C 5.4 % (<5.7)
[2020-11-24 07:25] LABS: Anion Gap 17.5 mmol/L (3-11); BUN 14 mg/dL (7-18); CO2 19.5 mmol/L (21.0-32.0); CREATININE 1.3 mg/dL (0.70-1.30); Calcium 9.6 mg/dL (8.5-10.1); Calculated LDL 67 mg/dL (<100); Chloride 116 mmol/L (98-107); Cholesterol 142 mg/dL (<200); Estimated GFR 54.73 (mL/min/1.73m2); Glucose 103 mg/dL (74-106); HDL Cholesterol 46 mg/dL (40-60); Magnesium 1.9 mg/dL (1.8-2.4); Potassium 4.3 mmol/L (3.5-5.1); Triglyceride 146 mg/dL (<150)
[2020-11-24 07:43] LABS: Vitamin B12 815 pg/mL (193-986)
[2020-11-24 07:48] LABS: Sodium 153 mmol/L (136-145)
[2020-11-24] MEDS: Enoxaparin 40 MG/0.4 ML SYR SC (08:36)
[2020-11-24] MEDS: Aspirin 81 MG CHEW PO (08:37)
[2020-11-24] MEDS: diphenhydrAMINE 50 MG/ML VIAL IVP (10:16)
--- NOTE | 2020-11-24 10:24 | PGE_ITS ---
Date of Service Date of service: 11/24/20 Time of Service: 10:24 Assessment and Plan Assessment and plan (1) Altered mental status: Status: Acute Assessment and plan: patient remains restless and non verbal. has been hemodynamcally stable symptoms improved after receiving benadryl and ativan. will place psychiatric consult for wednesday when available. spinal tap unremarkable. no explanation for symptoms noted on work up MRI and echo pending for Wednesday (2) Bipolar disorder: Status: Chronic Assessment and plan: continue home medications when able to take po Qualifiers: Active/Remission status: currently active Current bipolar episode type: depressed Current episode severity: moderate Qualified Code(s): F31.32 - Bipolar disorder, current episode depressed, moderate (3) Essential hypertension: Status: Chronic Assessment and plan: stable continue amlodipine (4) Acute kidney injury: Status: Acute Assessment and plan: prerenal, improved with hydration (5) DVT prophylaxis: Status: Acute Assessment and plan: lovenox sc (6) Discharge planning issues: Status: Acute Assessment and plan: Full code case management following. discussed with DR Otero Subjective Subjective Interval history since last seen: remains alert but non verbal, not following commands. very restless, requiring benadryl and ativan which provided good relief of his symptoms. taking some po Exam Const General: disheveled, frail appearing and ill appearing chronically Nutritional Appearance: average body habitus Orientation: alert, awake and other (not responding verbally, not following commands) Limitations: other limitations [facility] Head: normal to inspection, normocephalic and atraumatic Mouth: oral mucosae normal Eyes General: appearance normal, both eyes and all related structures Alignment and Position: alignment normal and position normal Eyelids: eyelids normal Conjunctivae: conjunctivae normal Sclera: sclerae normal Resp Effort & Inspection: normal respiratory effort Auscultation: clear to auscultation bilaterally Cardio Rate: regular rate Rhythm: regular rhythm GI Inspection: normal to inspection Auscultation: normal bowel sounds Skin General skin exam: no rashes or lesions noted Neuro General: patient alert, patient awake and patient confused Cranial Nerves: other (unable to assess) Cognition: abnormal cognition Motor: muscle tone normal throughout and strength 5/5 throughout Extrem General: normal to inspection, full ROM and no pedal edema Objective Last Vital Signs Temp 36.9 C 11/24/20 03:27 Pulse 50 L 11/24/20 07:00 Resp 16 11/24/20 03:27 BP 158/74 H 11/24/20 03:27 Pulse Ox 96 11/24/20 03:27 Laboratory Results - last 24 hr 11/23/20 11/23/20 11/23/20 20:25 20:25 20:25 WBC 17.32 H RBC 5.55 Hgb 16.8 Hct 50.9 H MCV 91.7 MCH 30.3 MCHC 33.0 RDW 12.7 Plt Count 278 MPV 11.2 H Immature Gran % 0.5 Neutrophils % 69.0 Lymphocytes % 19.6 Monocytes % 9.1 Eosinophils % 1.4 Basophils % 0.4 Nucleated RBC % 0 Absolute Neutrophils 11.95 H Absolute Lymphocytes 3.39 Absolute Monocytes 1.58 H Absolute Eosinophils 0.24 Absolute Basophils 0.07 RBC Morphology Normal Sodium 141 Potassium 3.2 L Chloride 106 Carbon Dioxide 24.2 Anion Gap 10.8 BUN 18 D Creatinine 1.7 H Estimated GFR/1.73 m2 40.16 Glucose 111 H Hemoglobin A1c Calcium 9.0 Magnesium 1.9 Total Bilirubin 0.7 AST 23 ALT 26 Alkaline Phosphatase 98 Creatine Kinase 271 Troponin I < 0.05 Total Protein 7.5 Albumin 3.7 Triglycerides Total Cholesterol LDL Cholesterol, Calc HDL Cholesterol Vitamin B12 TSH Urine Color Urine Clarity Urine pH Ur Specific [place] Urine Protein Urine Ketones Urine Blood Urine Nitrite Urine Bilirubin Urine Urobilinogen Ur Leukocyte Esterase Urine Glucose Salicylates < 2.8 Urine Opiates Screen Urine Methadone Screen Acetaminophen < 2 Ur Barbiturates Screen Ur Tricyclics Screen Ur Amphetamines Screen U Benzodiazepines Scrn Urine Cocaine Screen Ur THC Screen Ethyl Alcohol < 3.0 COVID-19 Source SARS-CoV-2 (PCR) 11/23/20 11/23/20 11/23/20 20:50 20:50 21:45 WBC RBC Hgb Hct MCV MCH MCHC RDW Plt Count MPV Immature Gran % Neutrophils % Lymphocytes % Monocytes % Eosinophils % Basophils % Nucleated RBC % Absolute Neutrophils Absolute Lymphocytes Absolute Monocytes Absolute Eosinophils Absolute Basophils RBC Morphology Sodium Potassium Chloride Carbon Dioxide Anion Gap BUN Creatinine Estimated GFR/1.73 m2 Glucose Hemoglobin A1c Calcium Magnesium Total Bilirubin AST ALT Alkaline Phosphatase Creatine Kinase Troponin I Total Protein Albumin Triglycerides Total Cholesterol LDL Cholesterol, Calc HDL Cholesterol Vitamin B12 TSH Urine Color Yellow Urine Clarity Clear Urine pH 5.5 Ur Specific [place] <= 1.005 Urine Protein Negative Urine Ketones Negative Urine Blood Negative Urine Nitrite Negative Urine Bilirubin Negative Urine Urobilinogen 0.2 Ur Leukocyte Esterase Negative Urine Glucose Negative Salicylates Urine Opiates Screen Negative Urine Methadone Screen Negative Acetaminophen Ur Barbiturates Screen Negative Ur Tricyclics Screen Negative Ur Amphetamines Screen Negative U Benzodiazepines Scrn Negative Urine Cocaine Screen Negative Ur THC Screen Negative Ethyl Alcohol COVID-19 Source Nasal/Nares SARS-CoV-2 (PCR) Negative 11/23/20 11/24/20 11/24/20 23:42 06:17 06:17 WBC 13.58 H RBC 5.94 H Hgb 17.6 H Hct 53.3 H MCV 89.7 MCH 29.6 MCHC 33.0 RDW 12.9 Plt Count 302 MPV 12.1 H Immature Gran % 0.3 Neutrophils % 71.0 Lymphocytes % 20.2 Monocytes % 7.3 Eosinophils % 1.0 Basophils % 0.2 Nucleated RBC % 0 Absolute Neutrophils 9.64 H Absolute Lymphocytes 2.74 Absolute Monocytes 0.99 H Absolute Eosinophils 0.14 Absolute Basophils 0.03 RBC Morphology Sodium 153 H D Potassium 4.3 D Chloride 116 H Carbon Dioxide 19.5 L Anion Gap 17.5 H BUN 14 Creatinine 1.3 Estimated GFR/1.73 m2 54.73 Glucose 103 Hemoglobin A1c Calcium 9.6 Magnesium 1.9 Total Bilirubin AST ALT Alkaline Phosphatase Creatine Kinase Troponin I < 0.05 Total Protein Albumin Triglycerides 146 Total Cholesterol 142 LDL Cholesterol, Calc 67 HDL Cholesterol 46 Vitamin B12 TSH 0.90 Urine Color Urine Clarity Urine pH Ur Specific [place] Urine Protein Urine Ketones Urine Blood Urine Nitrite Urine Bilirubin Urine Urobilinogen Ur Leukocyte Esterase Urine Glucose Salicylates Urine Opiates Screen Urine Methadone Screen Acetaminophen Ur Barbiturates Screen Ur Tricyclics Screen Ur Amphetamines Screen U Benzodiazepines Scrn Urine Cocaine Screen Ur THC Screen Ethyl Alcohol COVID-19 Source SARS-CoV-2 (PCR) 11/24/20 11/24/20 06:17 06:17 WBC RBC Hgb Hct MCV MCH MCHC RDW Plt Count MPV Immature Gran % Neutrophils % Lymphocytes % Monocytes % Eosinophils % Basophils % Nucleated RBC % Absolute Neutrophils Absolute Lymphocytes Absolute Monocytes Absolute Eosinophils Absolute Basophils RBC Morphology Sodium Potassium Chloride Carbon Dioxide Anion Gap BUN Creatinine Estimated GFR/1.73 m2 Glucose Hemoglobin A1c 5.4 Calcium Magnesium Total Bilirubin AST ALT Alkaline Phosphatase Creatine Kinase Troponin I Total Protein Albumin Triglycerides Total Cholesterol LDL Cholesterol, Calc HDL Cholesterol Vitamin B12 815 TSH Urine Color Urine Clarity Urine pH Ur Specific [place] Urine Protein Urine Ketones Urine Blood Urine Nitrite Urine Bilirubin Urine Urobilinogen Ur Leukocyte Esterase Urine Glucose Salicylates Urine Opiates Screen Urine Methadone Screen Acetaminophen Ur Barbiturates Screen Ur Tricyclics Screen Ur Amphetamines Screen U Benzodiazepines Scrn Urine Cocaine Screen Ur THC Screen Ethyl Alcohol COVID-19 Source SARS-CoV-2 (PCR)
[2020-11-24] MEDS: LORazepam 2 MG/ML VIAL 1 MG IVP ×2 (10:27→15:25)
[2020-11-24] MEDS: amLODIPine 5 MG TAB PO (11:12)
[2020-11-24] MEDS: QUEtiapine 25 MG TAB 50 MG PO ×2 (11:13→15:24)
[2020-11-24] MEDS: buPROPion-CR 100 MG TABCR PO (11:13)
[2020-11-24] MEDS: Magnesium Oxide 400 MG TAB PO (11:13)
[2020-11-24] MEDS: Tamsulosin 0.4 MG CAPCR PO (11:14)
[2020-11-24] MEDS: Rosuvastatin 5 MG TAB PO (11:47)
[2020-11-24] MEDS: Normal Saline Flush 10 ML SYR (12:12)
[2020-11-24 15:14] VITALS: PULSE 86
--- NOTE | 2020-11-24 16:09 | NUR.NOTE ---
Nursing Note: Patient has been in and out of a catatonic state, from being nonverbal and non redirectable to being full alert and oriented and verbal
[2020-11-24 17:19] LABS: Bilirubin Negative (Negative); Blood Moderate (Negative); Clarity Clear (Clear); Glucose Negative (Negative); Ketones Negative (Negative); Leukocyte Esterase Trace (Negative); Nitrite Negative (Negative); Specific Gravity <= 1.005 (1.005-1.025); Urobilinogen 0.2 EU/dL (Up TO 0.2)
[2020-11-24] MEDS: Acetaminophen 650 MG SUPP PR (17:29)
[2020-11-24 17:33] LABS: Bacteria Rare HPF (Negative); C & S Indicated? Yes; Crystals Negative HPF (Negative); Epithelial Cells Negative HPF (Negative); Mucus Negative (Negative); RBC 0-2 HPF (0-2)
[2020-11-25] MEDS: Melatonin 3 MG TAB 6 MG PO (00:49)
[2020-11-25] MEDS: Acetaminophen 325 MG TAB 650 MG PO (00:49)
[2020-11-25] MEDS: Mirtazapine 15 MG TAB PO (00:50)
[2020-11-25] MEDS: QUEtiapine 25 MG TAB 50 MG PO ×3 (00:54→13:22)
[2020-11-25 01:14] VITALS: PULSE 63
[2020-11-25 06:11] VITALS: BP 142/68; PULSE 52; RESP 16; TEMP 37; O2SAT 96
[2020-11-25 06:47] LABS: Abs Immature Grans 0.02 10^3/uL (0.0-0.06); Absolute Basophil Count 0.03 10^3/uL (0.0-0.2); Absolute Eosinophil Count 0.37 10^3/uL (0.0-0.7); Absolute Lymphocyte Count 2.56 10^3/uL (1.2-3.4); Absolute Monocyte Count 0.89 10^3/uL (0.1-0.8); Basophils % 0.3; Eosinophils % 3.6; HCT 45.8 % (40.0-50.0); HGB 15.3 g/dL (13.5-17.5); Immature Grans % 0.2; Lymphocytes % 24.9; MCH 30.4 pg (27.0-33.0); MCHC 33.4 % (32.0-36.0); MCV 90.9 fL (80-95); MPV 11.4 fL (8.0-11.0); Monocytes % 8.7; Neutrophils % 62.3; Nucleated RBC 0 %; Platelet Count 230 10^3/uL (130-400); RBC 5.04 10^6/uL (4.36-5.78); RDW 13.2 % (11.8-14.1); RDW-SD 43.9 fL; WBC 10.27 10^3/uL (4.4-10.8)
[2020-11-25 07:06] LABS: ALT 22 U/L (16-63); AST 17 U/L (15-37); Albumin 3.3 g/dL (3.4-5.0); Alkaline Phosphatase 83 U/L (46-116); Anion Gap 9.8 mmol/L (3-11); BUN 11 mg/dL (7-18); Bilirubin, Total 0.8 mg/dL (0.2-1.0); CO2 26.2 mmol/L (21.0-32.0); CREATININE 1.4 mg/dL (0.70-1.30); Calcium 8.7 mg/dL (8.5-10.1); Chloride 114 mmol/L (98-107); Estimated GFR 50.25 (mL/min/1.73m2); Glucose 96 mg/dL (74-106); Potassium 3.8 mmol/L (3.5-5.1); Sodium 150 mmol/L (136-145); Total Protein 5.8 g/dL (6.4-8.2)
--- NOTE | 2020-11-25 08:00 | DI.US_ITS ---
APPROVED REPORT EXAM: Comprehensive 2D, Doppler, and color-flow Echocardiogram Patient Location: In-Patient Room/Bed: 208 Credit Review Manager: Chantel Washington RDCS (AE) Indications: Atrial Flutter Other Information Study Quality: Adequate Conclusion Normal left ventricular wall thickness and chamber size. Estimated ejection fraction is 55 to 60%. There are no segmental wall motion abnormalities Normal right ventricular size and systolic function Both atria are normal in size There is no significant valvular disease Estimated right ventricular systolic pressure is 21 mmHg Wall motion Left Ventricle The left ventricle is normal size. The left ventricular systolic function is normal. The left ventric ular ejection fraction is within the normal range. There is normal left ventricular wall thickness. T here is normal LV segmental wall motion. There is no ventricular septal defect visualized. LVEF is 55 -60%. Right Ventricle The right ventricle is normal size. The right ventricular systolic function is normal. The RVSP is 20 .9 mmHg. Atria The left atrium size is normal. The right atrium size is normal. The interatrial septum is intact wit h no evidence for an atrial septal defect. Aortic Valve The aortic valve is normal in structure. Aortic valve is trileaflet. There is no aortic valvular sten osis. No aortic regurgitation is present. Mitral Valve The mitral valve is normal in structure. No evidence of mitral valve stenosis. Trace mitral regurgita tion. Tricuspid Valve The tricuspid valve is normal in structure. There is no tricuspid valve stenosis. Trace tricuspid reg urgitation. Pulmonic Valve The pulmonary valve is normal in structure. There is no pulmonic valvular stenosis. Trace pulmonic re gurgitation. Great Vessels The aortic root is normal in size. The ascending aorta is normal in size. Aortic arch is not well vis ualized. IVC is normal in size and collapses >50% with inspiration. Pericardium There is no pericardial effusion. 2D Dimensions IVSD d PLAX 1.19 cm M: 0.6-1.2 LV Vol A2C d MOD 125.0 mL LVPW d PLAX 1.19 cm M: 0.6 - 1.2 LV Vol A4C d MOD 122.0 mL LVID d PLAX 4.48 cm M: 4.2 - 5.8 LA vol/ BSA A2C s A-L 30.8 mL/m2 LVDs 3.10 cm M: 2.5 - 4.0 LA vol/ BSA A4C s A-L 27.7 mL/m2 Ao Root d 2.98 cm M: 3.1 - 3.7 LA Vol/ BSA Biplane s A-L 29.5 mL/m2 RA Area A4C 16.77 cm2 LA Area A4C s MOD 19.02 cm2 RA Vol/ BSA A4C s A-L 22.6 mL/m2 LA Area A2C s MOD 19.84 cm2 Ao Asc Diam d 2.83 cm M: 2.6 - 3.4 LV EF A4C MOD 55.5 % LV EF Teichholz 57.2 % LV EF A2C MOD 55.0 % LVEF (Marshall's) 54.91 % M: 52 - 72 LV EF Biplane MOD 54.9 % LV Volume 93.71 mL M: 62 - 150 SV 68.50 mL LV Volume Index 47.09 mL/m2 M: 34 - 74 SV Index 34.40 mL/m2 LV Vol Biplane MOD 124.8 mL FS 29.85 % M-Mode TAPSE 1.37 cm (M/F) >1.7 LV Diastology MV E' medial 0.070 (>0.07 m/s) E/A Ratio 0.7 LV E/e MED 7.50 (<14) MV E Vmax 0.52 (0.4-1.3 m/s) MV E' lateral 0.106 (>0.1 m/s) MV A Vmax 0.75 (0.4-1.3 m/s) LV E/e LAT 4.90 (<14) MV E/A Ratio 0.67 MV E/E' medial 7.51 MV E/E' lateral 4.92 Aortic Valve LVOT Area 3.55 cm2 AoV Area Vmax 3.14 cm2 LVOT Vmax 1.41 m/s AoV Area/ BSA (Vmax) 1.58 cm2/m2 LVOT Mean Sumanth. 0.91 m/s KARSTEN Mean Sumanth. 2.83 cm2 LVOT Peak Grad 7.9 mmHg KARSTEN Mean Sumanth. Index 1.42 cm2/m2 LVOT Mean Grad 4.0 mmHg LVOT VTI 0.315 m LVOT Diam s 2.10 cm AoV Vmax 1.59 m/s Velocity Ratio 0.88 AoV Mean Sumanth. 1.14 m/s AoV Peak Grad 10.1 mmHg LVOT SV 111.74 mL AoV Mean Grad 5.7 mmHg AoV VTI 0.337 m AoV Area VTI 3.32 cm2 AoV Area/ BSA (VTI) 1.67 cm/m2 Mitral Valve MV DT 307 (160-240 msec) MV PHT 89 msec MV Area PHT 2.47 cm2 MV VTI 0.211 m MV Area VTI 5.29 (4.0-6.0 cm2) Pulmonary Valve PV Vmax 1.40 (0.5-1.5 m/s) RVOT Peak Gr. 1.55 mmHg PV Peak Grad 7.8 mmHg RVOT Mean Gr. 0.90 mmHg PV Mean Grad 3.4 mmHg RVOT VTI 0.134 m PV VTI 0.269 m RVOT Vmax 0.62 m/s Tricuspid Valve TR Peak Grad 17.8 mmHg TR Vmax 2.11 m/s RA Pressure 3.00 mmHg RVSP (TR) 20.9 mmHg
--- NOTE | 2020-11-25 09:03 | INITIAL_ITS ---
- If Service Date Differs Date of service: 11/25/20 Time of Service: 09:03 Care Management Initial Assess REASON FOR HOSPITALIZATION:: Altered mental Status PAST MEDICAL HISTORY/PAST SURGICAL HISTORY:: Medical History . Bipolar disorder. Congenital nasal septum deviation. Diverticula of colon. Essential hypertension. Hyperlipidemia, unspecified. Nasal turbinate hypertrophy. 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 Surgical History . History of colonoscopy. History of orchiectomy, unilateral. left PREVIOUS FUNCTIONAL STATUS/SOCIAL/FAMILY SUPPORTS:: Sebas is 69 yo man who lives with his Sisi in a mobile home in [place]. They spend bustillos at the [facility] and winter in [place]. They have a daughter Monica who lives in the area and a son who lives in [place]. They also have 6 grandchildren. Sebas is usually managed well at home with his psych meds but recently he has been having difficulties, staring into space and has become incontinent. At baseline Sebas is hard of hearing, indepedent and still drives. CURRENT FUNCTIONAL STATUS:: Sebas was sitting up in a chair when CM met with him. He was eating and did not acknowledge CM when CM was speaking. He did not answer questions, look at CM or in any way indicate that he was aware CM was in the room. CM contacted his Sisi who stated he has been exhibiting similar behavior since . He had come to [facility] then was transferred to [facility]. He was discharged within 2 days but required hospitalization later the same day at [facility]. ADVANCE DIRECTIVES:: none on file Has patient been provided with info about the portal/API?: Yes Did the patient sign up for the portal?: Yes (previously) CODE STATUS:: Full Code INSURANCE COVERAGE / FINANCIAL ISSUES:: Medicare PRIMARY CARE PHYSICIAN:: Jose Eduardo Barboza POTENTIAL DISCHARGE NEEDS:: Followup with PCP and discharge plan of care PATIENT/FAMILY EDUCATION NEEDS:: Review of discharge instructions, medications, activity, limitations, Ask Me Three TRANSPORTATION:: via private vehicle with family PLAN:: The discharge plan for Sebas is unclear at this time. His stated she cannot manage him at home like this, particularly with the incontinence. He is having a neurological workup and further plans will be based on the outcome of the tests as well as his behavior. CM will continue to support Sebas and his family and assess for discharge planning concerns.
[2020-11-25 09:33] VITALS: BP 145/73; PULSE 52; RESP 16; TEMP 37.2; O2SAT 95
[2020-11-25 09:39] VITALS: PULSE 58
[2020-11-25] MEDS: LORazepam 2 MG/ML VIAL 1 MG IVP (09:46)
--- NOTE | 2020-11-25 10:20 | DI.MRI_ITS ---
Exam(s) MR ANGIO BRAIN WO EXAM: MR ANGIO BRAIN WO CLINICAL HISTORY: concern for CVA TECHNIQUE: Performed on 1.5 denise unit using [id number] sequence. No IV contrast. COMPARISON: CT and brain MRI reviewed FINDINGS: ANTERIOR CIRCULATION: Both internal carotid arteries are demonstrated patent in the skull base-caroti d canals as well as within both cavernous sinuses. The supraclinoid aspect these vessels are patent. Middle cerebral arteries are patent bilaterally. Both A1 segments are patent but there is a sugges tion of a focal stenosis at the origin of the right A1 segment. Also stenosis at the mid level of th e left A1 segment. Both anterior cerebral arteries are patent. No evidence of aneurysm at the level of the anterior communicating artery. POSTERIOR CIRCULATION: The basilar artery is formed at the skull base by contribution from both verte bral arteries. The basilar artery is sends in the midline with satisfactory luminal diameter. Dista lly it gives off patent right posterior cerebral artery. The left posterior cerebral artery is suppl ied by posterior communicating artery on the left side of the [id number]. There is no aneurysm of the tip of the basilar artery. Superior cerebellar arteries also exhibit flow signal. IMPRESSION: 1. Some stenotic areas are noted in the anterior circulation vessels as described above. DATA REPOSITORY:
--- NOTE | 2020-11-25 10:30 | DI.MRI_ITS ---
Exam(s) MR ANGIO NECK WO CLINICAL HISTORY: concern for acute CVA. TECHNIQUE: Non few study performed on 1.5 denise unit using [id number] sequence. CONTRAST MATERIAL: IV Contrast: None COMPARISON: None. FINDINGS: Quality of this study is less than optimal. Patient was apparently not able to be cooperative. The aortic arch anatomy is conventional. There is no obvious tight stenosis at the origin the great vessels off the aortic arch. ANTERIOR CIRCULATION: Both common carotid arteries ascend with normal luminal diameters. Although there is no obvious stenosis evident on the axial images, on the reconstructed images there appears to be a possible significant focal stenosis in the proximal right internal carotid artery in the neck, estimated approximately 90 percent. There does not appear to be a significant stenosis in the left carotid bulb and proximal left ICA. POSTERIOR CIRCULATION: Both vertebral arteries originated conventional fashion off of the subclavian arteries and ascend wit h equal luminal diameters in the foramen transverse area with no evidence of intraluminal filling def ects nor obvious dissection flap. Both vertebral arteries contribute equally to the formation of the basilar artery at the skull base. IMPRESSION: There appears to be a tight focal stenosis in the proximal right internal carotid artery in the neck. This is estimated approximately 90 percent, seen on the reconstructed images. Please note that the re is significant artifact on this study. No evidence of significant stenosis at the origin of the left internal carotid artery nor within the common carotid arteries on either side. DATA REPOSITORY:
--- NOTE | 2020-11-25 11:05 | DI.MRI_ITS ---
Exam(s) MR BRAIN WO EXAM: MR BRAIN WO CLINICAL HISTORY: concern for CVA TECHNIQUE: Multiplanar multisequence MRI of the brain was performed. COMPARISON: CT CT HEAD WO from 11/23/[address] HEAD WO from 11/23/2020 MR MR ANGIO BRAIN WO from 11/25/2020 FINDINGS: Some sequences are blurred by motion artifact. CEREBRAL PARENCHYMA: There is no evidence of intracranial hemorrhage, mass effect, or shift of midline structures. There are no extra-axial fluid collections. Ventricles are not enlarged or shifted. There is no significant focal signal abnormality in the cerebellar hemispheres nor within the jez, m idbrain, and thalami. There are multiple small foci of signal abnormality in the [place] in supra ventricular white matter, mo re prominent on the left side. These do not exhibit abnormal signal on diffusion imaging and there i s also no evidence of hemorrhage at these levels. There is no significant focal signal abnormality evident on diffusion imaging to suggest acute ischem ic event. PITUITARY GLAND: No mass nor parasellar abnormality. No obvious abnormality in the cavernous sinuses. FLOW VOIDS: The expected flow void are noted. No evidence of obvious aneurysm nor obvious vascular ma lformation. PARANASAL SINUSES: The visualized paranasal sinuses appear unremarkable. No obvious finding ORBITS: No obvious findings. IMPRESSION: There are foci of signal abnormality in white matter periventricular regions consistent with chronic small vessel ischemic changes. No evidence of acute territorial infarction. DATA REPOSITORY:
[2020-11-25] MEDS: Rosuvastatin 5 MG TAB PO (11:50)
[2020-11-25] MEDS: Tamsulosin 0.4 MG CAPCR PO (11:50)
[2020-11-25] MEDS: Aspirin 81 MG CHEW PO (11:50)
[2020-11-25] MEDS: Enoxaparin 40 MG/0.4 ML SYR SC (11:51)
[2020-11-25] MEDS: buPROPion-CR 100 MG TABCR PO (11:51)
[2020-11-25] MEDS: amLODIPine 5 MG TAB PO (11:51)
[2020-11-25] MEDS: Cetirizine 10 MG TAB PO (11:51)
[2020-11-25] MEDS: Magnesium Oxide 400 MG TAB PO (11:51)
[2020-11-25 15:01] VITALS: PULSE 65
--- NOTE | 2020-11-25 15:48 | DSE_ITS ---
Date of service: 11/25/20 Time of Service: 15:48 DS: Diagnosis Discharge Diagnosis (1) Carotid stenosis: Start date: 11/25/20 Start time: 16:12 Status: Acute Asessment and Plan: MRI of brain There are foci of signal abnormality in white matter periventricular regions consistent with chronic small vessel ischemic changes. No evidence of acute territorial infarction. Neck MRA with There appears to be a tight focal stenosis in the proximal right internal carotid artery in the neck. This is estimated approximately 90 percent, seen on the reconstructed images. Please note that there is significant artifact on this study Due to this crestor has been dcd and atorvastatin 80 mg has been started. He will need f/u as an outpatient with with PCP, vascular and neuro. (2) Altered mental status: Start date: 11/25/20 Start time: 15:48 Status: Resolved Asessment and Plan: Patient at baseline mentation. Able to answer all q uestions appropriately able to state date time, place and season AAOx3. If his behavior changes I would recommend seeking psychiatry on the outpatient side. This will also help with bioplar (3) Bipolar disorder: Start date: 11/25/20 Start time: 15:59 Status: Chronic Asessment and Plan: Seek pyschiarty services as an outpatient is he continues to have ups and downs with his behavior (4) Essential hypertension: Start date: 11/25/20 Start time: 15:59 Status: Chronic Asessment and Plan: Variable he could use tighter control. Will defer to pcp for further management of his bp control. On amlodipine, continue home medications (5) Acute kidney injury: Start date: 11/25/20 Start time: 16:01 Status: Acute Asessment and Plan: Near baseline. Encourage PO intake. discussed with Dr. Otero Discharge Plan Disposition Patient Disposition: HOME Condition: Stable Discharge Details Reason For Visit: Altered Mental Status Admit Date/Time: 11/23/20 21:51 Admit Provider: Leia Elena Attending Provider: Leia Elena Primary Care Provider: Jose Eduardo Barboza Hospital Course Hospital Course: 70 y.o male with PMH of Bioplar with manic episodes, HTN, , CKD 3, sleep disturbance, who admitted to [facility] after being found in a hot car unresponsive. The patient had just been discharged from the [facility] earlier today and was driven home by his . Upon arrival home, per the ED provider, the patient refused to leave the car, locking it and unlocking it multiple times from the inside. To the best of the 's knowledge, he did not have an opportunity to overdose. He remained in the car for at least 3 hours, at which point he became unresponsive, and EMS were called. It is not clear what the patient's temperature was when measured by EMS. He was placed on ice and taken to the ED. Here, he was found to not be hyperthermic. He did have a leucocytosis of 17, but has not had any evidence of infectious process. Moreover, he had an extensive medical workup in our ED on 11/21, including a negative LP, when he had presented to the ED with AMS at that time. In fact, the patient was evaluated at [facility] ED on 11/19 with chief complaint of feeling detached and was cleared by mental health stand point. On his visit to the ED on 11/21, his condition was described as catatonic. He was felt to require further psychiatric hospitalization at that time by mental health, but due to lack of available beds, he was transferred to [facility], where he was cleared for discharge home on the same day with outpatient psychiatric follow up without any medication changes on discharge. The patient was initially bradycardic to the 40s in the ED. His Hr is now up to 60s-70s. While initially, his condition was described as obtunded, he has not yet been verbal. Reportedly, in the ED, he was able to sit up and then lay back down. He had a hartman catheter with a temperature probe placed in the ED. He has not been hyperthermic there. His latest tempt is 35.8. He was initiated on IVF. Hospitalist admission was requested. Over course of treatment he did have bouts of catatonia, with confusion. This likely is behavioral and he needs to see psychiatry as an outpatient to figure out his medication. He is bipolar so having moments of up and down is not uncommon. He needs better medical management. Due to his testing he was switched from crestor to atorvastatin, read above as for results. Today he was AAOx3 able to answer all questions and answered everything appropriately. Likely he acts out due to behavioral issues. Which needs to be addressed by a psychiatrist as an outpatient. He will also need f/u with his PCP, vascular and neuro. He denies CP, SOB, nvd Home Meds and New Rx's Prescriptions: New atorvastatin 40 mg Tablet 80 mg PO QPM Qty: 30 RF: 0 aspirin 81 mg Tablet,Chewable 81 mg PO DAILY Qty: 30 RF: 0 lorazepam [Ativan] 2 mg tablet 2 mg PO BID PRNQty: 30 RF: 0 Continued amlodipine 5 mg tablet 5 mg PO DAILY Qty: 90 RF: 3 tamsulosin 0.4 mg capsule 0.4 mg PO DAILY Qty: 90 RF: 3 divalproex 500 mg tablet extended release 24 hr 500 - 1,000 mg PO BID Qty: 270 RF: 3 Rexulti 1 mg tablet 1 mg PO QHS RF: 0 mirtazapine 15 mg tablet 15 mg PO HS RF: 0 quetiapine 50 mg tablet 50 mg PO TID RF: 0 cetirizine 10 mg Tablet 10 mg PO DAILY RF: 0 melatonin 3 mg Tablet 6 mg PO HS RF: 0 bupropion HCl 100 mg tablet sustained-release 12 hr 100 mg PO DAILY RF: 0 magnesium oxide 400 mg magnesium Tablet 400 mg PO DAILY RF: 0 fluticasone propionate 50 mcg/actuation spray,suspension 1 spray INTRANASAL HS RF: 0 Discontinued rosuvastatin 5 mg tablet 5 mg PO DAILY RF: 0 Discharge Instructions Instructions: Low Fat Diet (DC), Bipolar Disorder (DC), Carotid Artery Disease (DC) Additional Instructions: Stop taking crestor Start taking atorvastatin F/u with PCP, vascular, neuro [place] [facility] [place] Alone Forms: Nursing Discharge Form Referrals: [facility] [Provider Group] (Vascular referral) Jose Eduardo Barboza [Primary Care Provider] - (We will call tomorrow with f\u appointment.) Taylor Martin MD [ [facility] STAFF PHYSICIAN] - (stenosis and confusion) Activity:: Activity as Tolerated Equipment/Supplies:: No Equipment Needed Diet:: As Tolerated Discharge Orders Discharge Orders: Discharge Order (Routine); Ordered 11/25/20 Ordered By: Khushboo Valle DS: Summary Time Spent with Patient providing and/or coordinating discharge services: Greater than 30 minutes Status at Discharge Functional status at discharge: independent ambulation Overall status at discharge: patient is back to baseline Mental Status: mental status grossly normal Speech and Movement: speech and movement normal Mood: congruent mood Affect: normal affect Exam Narrative Exam Narrative: General: Middle-aged male who appears well groomed, able to follow all commands AA0x3 Neurological: CN II-XII seemingly intact, able to move all 4 extremities against resistance, follows some commands. Nonverbal. Unable to fully evaluate motor/sensory function due to mental status, no rigidity Psychiatric: Verbal and AAOx3 Skin: Visible skin intact HEENT: Atraumatic, normocephalic; PERRLA, appeared to have EOMI, MMM, not opening mouth to permit oropharyngeal exam, no lymphadenopathy, goiter or jVD Cardiovascular: RRR, bradycardic (50s) Lungs: CTAB anteriorly Gastrointestinal: soft,nondistended, + BS Extremities: no edema BLE's, able to move all 4 extremities, +1 pedal pulses B Psych Mental Status: mental status grossly normal Speech and Movement: speech and movement normal Mood: congruent mood Affect: normal affect DS: Data Vitals/I&O Vitals and I&O: Vital Signs Temperature 37.2 C 11/25/20 09:33 Temperature Source Temporal Artery Scan 11/25/20 09:33 Pulse 58 L 11/25/20 09:39 Pulse Rhythm Irregular 11/25/20 09:48 Respiratory Rate 16 11/25/20 09:33 Respiratory Effort Non-Labored 11/25/20 09:48 Respiratory Depth Normal 11/25/20 09:48 Respiratory Pattern Normal 11/25/20 09:48 Blood Pressure 145/73 H 11/25/20 09:33 Blood Pressure Position Supine 11/23/20 20:16 Pulse Oximetry 95 11/25/20 09:33 Oxygen Delivery Method Room Air 11/25/20 09:33 Oxygen Flow Rate 0 11/25/20 09:33 Pain Level 0 11/25/20 09:48 Intake & Output 11/24/20 11/25/20 11/25/20 23:59 11:59 23:59 Intake Total 1600 / 3190 750 / 750 Output Total 6200 / 9080 3100 / 3100 Balance -4600 / -5890 -2350 / -2350 Weight 83.1 kg Intake: Oral 1600 / 3080 750 / 750 Output: Urine 6200 / 9080 3100 / 3100 Other: Urine Color Straw Pale Yellow Urine Appearance Clear Clear Voiding Methods Indwelling Catheter Indwelling Catheter Data Completed and Pending Completed studies during hospitalization [Text1]: Exam(s) MR BRAIN WO EXAM: MR BRAIN WO CLINICAL HISTORY: concern for CVA TECHNIQUE: Multiplanar multisequence MRI of the brain was performed. COMPARISON: CT CT HEAD WO from 11/23/[address] HEAD WO from 11/23/2020 MR MR ANGIO BRAIN WO from 11/25/2020 FINDINGS: Some sequences are blurred by motion artifact. CEREBRAL PARENCHYMA: There is no evidence of intracranial hemorrhage, mass effect, or shift of midline structures. There are no extra-axial fluid collections. Ventricles are not enlarged or shifted. There is no significant focal signal abnormality in the cerebellar hemispheres nor within the jez, midbrain, and thalami. There are multiple small foci of signal abnormality in the [place] in supra ventricular white matter, more prominent on the left side. These do not exhibit abnormal signal on diffusion imaging and there is also no evidence of hemorrhage at these levels. There is no significant focal signal abnormality evident on diffusion imaging to suggest acute ischemic event. PITUITARY GLAND: No mass nor parasellar abnormality. No obvious abnormality in the cavernous sinuses. FLOW VOIDS: The expected flow void are noted. No evidence of obvious aneurysm nor obvious vascular malformation. PARANASAL SINUSES: The visualized paranasal sinuses appear unremarkable. No obvious finding ORBITS: No obvious findings. IMPRESSION: There are foci of signal abnormality in white matter periventricular regions consistent with chronic small vessel ischemic changes. No evidence of acute territorial infarction. Exam(s) MR ANGIO NECK WO CLINICAL HISTORY: concern for acute CVA. TECHNIQUE: Non few study performed on 1.5 denise unit using [id number] sequence. CONTRAST MATERIAL: IV Contrast: None COMPARISON: None. FINDINGS: Quality of this study is less than optimal. Patient was apparently not able to be cooperative. The aortic arch anatomy is conventional. There is no obvious tight stenosis at the origin the great vessels off the aortic arch. ANTERIOR CIRCULATION: Both common carotid arteries ascend with normal luminal diameters. Although there is no obvious stenosis evident on the axial images, on the reconstructed images there appears to be a possible significant focal stenosis in the proximal right internal carotid artery in the neck, estimated approximately 90 percent. There does not appear to be a significant stenosis in the left carotid bulb and proximal left ICA. POSTERIOR CIRCULATION: Both vertebral arteries originated conventional fashion off of the subclavian arteries and ascend with equal luminal diameters in the foramen transverse area with no evidence of intraluminal filling defects nor obvious dissection flap. Both vertebral arteries contribute equally to the formation of the basilar artery at the skull base. IMPRESSION: There appears to be a tight focal stenosis in the proximal right internal carotid artery in the neck. This is estimated approximately 90 percent, seen on the reconstructed images. Please note that there is significant artifact on this study. No evidence of significant stenosis at the origin of the left internal carotid artery nor within the common carotid arteries on either side. DATA REPOSITORY: Exam(s) MR ANGIO BRAIN WO EXAM: MR ANGIO BRAIN WO CLINICAL HISTORY: concern for CVA TECHNIQUE: Performed on 1.5 denise unit using [id number] sequence. No IV contrast. COMPARISON: CT and brain MRI reviewed FINDINGS: ANTERIOR CIRCULATION: Both internal carotid arteries are demonstrated patent in the skull base-carotid canals as well as within both cavernous sinuses. The supraclinoid aspect these vessels are patent. Middle cerebral arteries are patent bilaterally. Both A1 segments are patent but there is a suggestion of a focal stenosis at the origin of the right A1 segment. Also stenosis at the mid level of the left A1 segment. Both anterior cerebral arteries are patent. No evidence of aneurysm at the level of the anterior communicating artery. POSTERIOR CIRCULATION: The basilar artery is formed at the skull base by contribution from both vertebral arteries. The basilar artery is sends in the midline with satisfactory luminal diameter. Distally it gives off patent right posterior cerebral artery. The left posterior cerebral artery is supplied by posterior communicating artery on the left side of the [id number]. There is no aneurysm of the tip of the basilar artery. Superior cerebellar arteries also exhibit flow signal. IMPRESSION: 1. Some stenotic areas are noted in the anterior circulation vessels as described above. EXAM: Comprehensive 2D, Doppler, and color-flow Echocardiogram Patient Location: In-Patient Room/Bed: [facility] [place] Retail Advisor: Chantel Washington RDCS (AE) Indications: Atrial Flutter Other Information Study Quality: Adequate Conclusion Normal left ventricular wall thickness and chamber size. Estimated ejection fraction is 55 to 60%. There are no segmental wall motion abnormalities Normal right ventricular size and systolic function Both atria are normal in size There is no significant valvular disease Estimated right ventricular systolic pressure is 21 mmHg Wall motion Left Ventricle The left ventricle is normal size. The left ventricular systolic function is normal. The left ventricular ejection fraction is within the normal range. There is normal left ventricular wall thickness. There is normal LV segmental wall motion. There is no ventricular septal defect visualized. LVEF is 55-60%. Right Ventricle The right ventricle is normal size. The right ventricular systolic function is normal. The RVSP is 20.9 mmHg. Atria The left atrium size is normal. The right atrium size is normal. The interatrial septum is intact with no evidence for an atrial septal defect. Aortic Valve The aortic valve is normal in structure. Aortic valve is trileaflet. There is no aortic valvular stenosis. No aortic regurgitation is present. Mitral Valve The mitral valve is normal in structure. No evidence of mitral valve stenosis. Trace mitral regurgitation. Tricuspid Valve The tricuspid valve is normal in structure. There is no tricuspid valve stenosis. Trace tricuspid regurgitation. Pulmonic Valve The pulmonary valve is normal in structure. There is no pulmonic valvular stenosis. Trace pulmonic regurgitation. Great Vessels The aortic root is normal in size. The ascending aorta is normal in size. Aortic arch is not well visualized. IVC is normal in size and collapses >50% with inspiration. Pericardium There is no pericardial effusion. Labs on day of discharge: Labs from last 24 hours 11/25/20 11/25/20 11/24/20 06:30 06:30 17:03 WBC 10.27 RBC 5.04 Hgb 15.3 D Hct 45.8 MCV 90.9 MCH 30.4 MCHC 33.4 RDW 13.2 Plt Count 230 MPV 11.4 H Immature Gran % 0.2 Neutrophils % 62.3 Lymphocytes % 24.9 Monocytes % 8.7 Eosinophils % 3.6 Basophils % 0.3 Nucleated RBC % 0 Absolute Neutrophils 6.40 Absolute Lymphocytes 2.56 Absolute Monocytes 0.89 H Absolute Eosinophils 0.37 Absolute Basophils 0.03 Sodium 150 H Potassium 3.8 Chloride 114 H Carbon Dioxide 26.2 Anion Gap 9.8 BUN 11 Creatinine 1.4 H Estimated GFR/1.73 m2 50.25 Glucose 96 Calcium 8.7 Total Bilirubin 0.8 AST 17 ALT 22 Alkaline Phosphatase 83 Total Protein 5.8 L Albumin 3.3 L Urine Color Yellow Urine Clarity Clear Urine pH 6.0 Ur Specific [place] <= 1.005 Urine Protein Negative Urine Ketones Negative Urine Blood Moderate H Urine Nitrite Negative Urine Bilirubin Negative Urine Urobilinogen 0.2 Ur Leukocyte Esterase Trace H Urine RBC 0-2 Urine WBC 3-5 Ur Epithelial Cells Negative Urine Crystals Negative Urine Bacteria Rare Urine Mucus Negative Ur Culture Indicated? 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 Sister No problems noted. Sister Heart disease Hyperlipidemia Hypertension Sister No problems noted. Sister No problems noted. Brother Heart disease Brother , 48 Heart disease Hyperlipidemia Hypertension Maternal Grandfather , 64 Heart disease Hyperlipidemia Hypertension Paternal Grandfather , 56 Heart disease Hyperlipidemia Hypertension Maternal Grandmother , 70 Asthma Stroke Paternal Grandmother , 80 No problems noted. Son No problems noted. Daughter No problems noted. Social History Smoking/Tobacco Use Status: Former Tobacco Use Quit Date: 08/03/18 Quit status: has quit before Smoking risk assessment performed?: Yes Alcohol Intake: never Drug use: Never Substance use type: does not use Caregiver/Support person: No Household members: spouse Housing: house Pets and animals: No Sexually active: Yes Do you think of yourself as: straight/heterosexual Current gender identity: male What is your relationship status?: How often do you talk on the phone with friends or family?: twice per week How often do you get together with friends or relatives?: twice per week How often do you attend pentecostal or church services?: 4 or more times per year Do you belong to any clubs or organized social groups?: no Panel score (0-1 are the most socially isolated patients): 3 What type of physical activity do you participate in: walking Duration: 15-30 minutes/day Frequency: daily Eloisa/Mormon: Anabaptism Special eloisa needs: No Do you feel safe at home: Yes Do you feel safe in your relationship?: Yes
[2020-11-25 16:37] VITALS: BP 123/71; PULSE 64; RESP 16; TEMP 36.9; O2SAT 94
--- NOTE | 2020-11-25 17:52 | CMDISCH_ITS ---
- If Service Date Differs Date of service: 11/25/20 Time of Service: 17:52 LACE Index Scoring Tool - Questions: Length of Stay (in days): 2 Acuity (Admit via E.D.?): Yes E.D. Visits: 5 - Answers: Total Score: 9 Risk of Readmission: Low Risk Care Management Discharge Reason for Hospitalization: Altered mental Status Discharge Plan: Sebas will be discharged home with no new services. He will follow up with his PCP; he has an appointmnet on Wednesday of this week. He will also follow up with his psychiatrist as soon as possible, preferably within 1 week. [facility] will transport with his via private vehicle. Patient/Family Education Needs: Review of discharge instructions, medications, activity, limitations, Ask Me Three - MH Services (Omit if N/A) Current MH Services: [facility]
== END 2020-11-25 18:03 | disposition home or self-care (01) ==
LOC: ER 22:33 → MS 23:32
PROVIDERS: Nurse Practitioner Acute Care; Admitting Provider Internal Medicine; Emergency Provider Emergency Medicine; PCP Family Medicine; Visit Provider Internal Medicine
DX: I65.21 Occlusion and stenosis of right carotid artery (principal); R40.4 Transient alteration of awareness; I48.92 Unspecified atrial flutter; I66.11 Occlusion and stenosis of right anterior cerebral artery; N17.9 Acute kidney failure, unspecified; Z79.899 Other long term (current) drug therapy; I12.9 Hypertensive chronic kidney disease with stage 1 through stage 4 chronic kidney disease, or unspecified chronic kidney disease; I45.2 Bifascicular block; G21.19 Other drug induced secondary parkinsonism; N18.30 Chronic kidney disease, stage 3 unspecified; I49.3 Ventricular premature depolarization; E78.5 Hyperlipidemia, unspecified; H90.3 Sensorineural hearing loss, bilateral; K57.30 Diverticulosis of large intestine without perforation or abscess without bleeding; F31.32 Bipolar disorder, current episode depressed, moderate; Z20.822 Contact with and (suspected) exposure to COVID-19; X30.XXXA Exposure to excessive natural heat, initial encounter; F06.1 Catatonic disorder due to known physiological condition
CPT/HCPCS: 36410; 36415; 51702; 70544; 70547; 80048; 80053; 80061; 80307; 82550; 87040; 87077; 87635; 93005; 93306; 96361; 96365; 99285; J1650; 70450; 70551; 80320; 80329; 81003; 81015; 82607; 83036; 83735; 84443; 84484; 85025; 87086; 87186; 93010; 99217; 99220; 99226; G0378; J1200; J2060; J3480; J3490

== ENCOUNTER 2021-11-05 10:12 | Outpatient (CLI) | payer OTHER, SELFPAY ==
[2021-11-05 10:51] LABS: HGB 15.6 g/dL (13.5-17.5); MCH 30.5 pg (27.0-33.0); MCHC 33.2 % (32.0-36.0); MCV 92 fL (80-95); MPV 10.4 fL (8.0-11.0); Platelet Count 282 10^3/uL (130-400); RBC 5.12 10^6/uL (4.36-5.78); RDW 13.3 % (11.8-14.1); RDW-SD 45.2 fL; WBC 9.63 10^3/uL (4.4-10.8)
[2021-11-05 11:25] LABS: Hemoglobin A1C 5.4 % (<5.7)
[2021-11-05 12:06] LABS: ALT 32 U/L (16-63); AST 21 U/L (15-37); Albumin 3.5 g/dL (3.4-5.0); Alkaline Phosphatase 101 U/L (46-116); Anion Gap 7.8 mmol/L (3-11); BUN 9 mg/dL (7-18); Bilirubin, Total 0.4 mg/dL (0.2-1.0); CO2 26.2 mmol/L (21.0-32.0); CREATININE 1.1 mg/dL (0.70-1.30); Calculated LDL 137 mg/dL (<100); Chloride 107 mmol/L (98-107); Cholesterol 220 mg/dL (<200); Glucose 95 mg/dL (74-106); HDL Cholesterol 45 mg/dL (40-60); Magnesium 2.1 mg/dL (1.8-2.4); Potassium 4.4 mmol/L (3.5-5.1); Sodium 141 mmol/L (136-145); TSH 1.43 uIU/mL (0.36-3.74); Total Protein 6.6 g/dL (6.4-8.2); Triglyceride 191 mg/dL (<150); Vitamin B12 637 pg/mL (193-986)
[2021-11-05 12:10] LABS: Ferritin 1156 ng/mL (26-388)
[2021-11-05 12:11] LABS: Folate > 20.0 ng/mL (8.6-20.0)
[2021-11-05 12:27] LABS: FREE T4 0.77 ng/dL (0.76-1.46)
[2021-11-05 17:38] LABS: T3,Free 2.7 pg/mL (2.8-5.3)
[2021-11-05 19:36] LABS: Prolactin 9.5 ng/mL (2.1-17.7)
[2021-11-06 16:10] LABS: Copper, Serum 102 mcg/dL (73-129)
[2021-11-06 18:41] LABS: Zinc, S 73 mcg/dL (60-106)
[2021-11-10 17:54] LABS: 1,25-Dihydroxyvitamin D 32 pg/mL (18-64)
== END 2021-11-05 10:13 | disposition home or self-care (01) ==
LOC: LBO 10:12
PROVIDERS: PCP Family Medicine; Visit Provider Psychiatry & Neurology Psychiatry
DX: F31.13 Bipolar disorder, current episode manic without psychotic features, severe (principal)
CPT/HCPCS: 36415; 80053; 80061; 82306; 82525; 83090; 84630; 85027; 82607; 82652; 82728; 82746; 83036; 83735; 84146; 84439; 84443; 84481

== ENCOUNTER 2021-11-23 12:12 | Emergency (ER) | payer OTHER, SELFPAY ==
[2021-11-23] VITALS (56 sets, daily range): BP systolic 105–168; BP diastolic 64–96; PULSE 53–85; RESP 8–22; TEMP 36.4; O2SAT 92–100
--- NOTE | 2021-11-23 12:15 | RT.EKG_ITS ---
APPROVED REPORT Exam: Resting ECG Reason for Exam: weakness Patient Location: E HR:64 bpm ECG Measurements Heart Rate 64 AXIS FL 211 P -2 QRSd 186 QRS -57 QT 495 T 124 QTc 513 Conclusion Sinus rhythm...normal P axis, V-rate 60- 99 Left bundle branch block...QRSd>120, broad/notched R ST elevation secondary to IVCD...Multiple VCG criteria. Sinus. LBBB which appears new. I have reviewed and interpreted ECG and agree with software generated interpretation.
--- NOTE | 2021-11-23 12:29 | W.ED.GENAD ---
Discharge Plan Disposition Patient Disposition: HOME Condition: Stable Discharge Details Clinical Impression: Bipolar 1 disorder, Dementia Primary Care Provider: Jose Eduardo Barboza ED Provider: Dewey Nath Home Meds and New Rx's Prescriptions: Continued quetiapine 25 mg tablet 75 mg PO BID Qty: 90 3RF bupropion HCl 100 mg tablet sustained-release 12 hr 200 mg PO BID mirtazapine 15 mg tablet 45 mg PO HS polyethylene glycol 3350 17 gram powder in packet 17 g PO DAILY Label Comments: 17g daily in 8oz fluid sennosides-docusate sodium 8.6-50 mg tablet 2 tab-cap PO BID olanzapine 10 mg tablet,disintegrating 10 mg PO BID folic acid 1 mg tablet 1 mg PO DAILY thiamine HCl (vitamin B1) 100 mg tablet 100 mg PO DAILY atorvastatin 80 mg tablet 80 mg PO QPM Qty: 90 3RF tamsulosin 0.4 mg capsule 0.4 mg PO DAILY Qty: 90 3RF cetirizine 10 mg Tablet 10 mg PO DAILY melatonin 3 mg Tablet 6 mg PO HS magnesium oxide 400 mg magnesium Tablet 400 mg PO DAILY aspirin 81 mg Tablet,Chewable 81 mg PO DAILY Qty: 30 0RF lorazepam [Ativan] 2 mg tablet 2 mg PO BID PRNQty: 30 0RF Discharge Instructions Instructions: Bipolar Disorder (ED), Dementia (ED) Additional Instructions: Please follow-up with [facility] services. Please follow-up with your primary care physician. Call today to schedule follow-up. Return to the ER immediately for any worsening or new concerning symptoms. Referrals: [facility] [Outside] Jose Eduardo Barboza MD [Primary Care Provider] - Discharge Data Discharge Date/Time-TO BE ENTERED AT DEPARTURE: 11/27/21 15:21 Medical Decision Making <JESSICA Ramesh - Last Filed: 11/26/21 16:33> Patient appears to be in a catatonic state, his diagnostic labs do not show significant acute abnormality Potassium is slightly low at 3.2 Suspect suspect patient's symptoms are related to patient underlying mental health history and corroborated that this is similar presentation to his prior admission approximately 2 months ago at [facility]. He was discharged approximately 2 weeks ago Followed by anterior chest Dr. Brooks and has been taking his Seroquel He remains in a catatonic state throughout this encounter He is noted to open his eyes and look around when we leave the room, however when you are in the room, patient will not engage in states that this is not unusual when he presents on this date He states he had does not show acute abnormality per radiology interpretation my review chest x-ray Patient does have a new left bundle branch block does not endorse any pain complaints will sign out to Elsa Livingston pending Nba BARRON assessment and psychiatrist med recommendations/likely admission Medical Records Medical records reviewed: Yes I reviewed the patient's medical records. Lab Data Lab results reviewed: Yes I reviewed the patient's lab results. ECG Data Prior ECG tracings: available for review <Elsa Livingston, SOLAR LAB TECHNICIAN - Last Filed: 11/23/21 23:52> Patient appears to be in a catatonic state, his diagnostic labs do not show significant acute abnormality Potassium is slightly low at 3.2 Suspect suspect patient's symptoms are related to patient underlying mental health history and corroborated that this is similar presentation to his prior admission approximately 2 months ago at [facility]. He was discharged approximately 2 weeks ago Followed by anterior chest Dr. Brooks and has been taking his Seroquel He remains in a catatonic state throughout this encounter He is noted to open his eyes and look around when we leave the room, however when you are in the room, patient will not engage in states that this is not unusual when he presents on this date He states he had does not show acute abnormality per radiology interpretation my review chest x-ray Patient does have a new left bundle branch block does not endorse any pain complaints will sign out to Elsa Livingston pending [facility], reports minimal bleeding. Evaluation assessment and psychiatrist med recommendations/likely admission 1610 11-23-21: SJ: Care assumed from provider (JESSICA Ramesh) Please see their initial HPI, PE, and documentation. Discussed patient details and case and pending workup and disposition. Patient is hemodynamically stable, and alert and oriented. At the time of signout pending psychiatric evaluation. 1713:Spoke with MELANIE Arango who reports he will be in at approximately 1730 for patient eval. 1741: Nba here with MELANIE Unable to evaluate patient due to catatonic state. 1935: Patient is awake, he asked for a drink of water and to go to the bathroom, Mental health paged to attempt a re-eval. 2034: Patient sitting up eating a sandwich. 2111: MH at bedside for eval at this time. 2122: Spoke with Nba with [facility] he reports that he began speaking at however patient was unable to complete the evaluation and has been noncompliant once again with the exam. We will continue to try to contact Dr. Junior with hopes of reevaluation in the a.m. Care is to be handed off to ER attending Dr. Patiño pending reevaluation in the a.m. Patient was given his nightly p.m. meds and his home meds were ordered. Lab Data Labs: Laboratory Tests Range/Units 11/23/21 11/23/21 11/23/21 12:55 12:55 12:55 WBC (4.4-10.8) 10^3/uL 11.90 H RBC (4.36-5.78) 10^6/uL 5.71 Hgb (13.5-17.5) g/dL 17.4 Hct (40.0-50.0) % 50.4 H MCV (80-95) fL 88 MCH (27.0-33.0) pg 30.5 MCHC (32.0-36.0) % 34.5 RDW (11.8-14.1) % 13.3 Plt Count (130-400) 10^3/uL 255 MPV (8.0-11.0) fL 12.5 H Immature Gran % 0.3 Neutrophils % 71.7 Lymphocytes % 16.1 Monocytes % 9.2 Eosinophils % 2.4 Basophils % 0.3 Nucleated RBC % (0.0-0.3) % 0.0 Absolute Neutrophils (1.2-6.7) 10^3/uL 8.53 H Absolute Lymphocytes (1.2-3.4) 10^3/uL 1.92 Absolute Monocytes (0.1-0.8) 10^3/uL 1.09 H Absolute Eosinophils (0.0-0.7) 10^3/uL 0.29 Absolute Basophils (0.0-0.2) 10^3/uL 0.04 Sodium (136-145) mmol/L 138 Potassium (3.5-5.1) mmol/L 3.2 L Chloride (98-107) mmol/L 100 Carbon Dioxide (21.0-32.0) mmol/L 27.1 Anion Gap (3-11) mmol/L 10.9 BUN (7-18) mg/dL 18 Creatinine (0.70-1.30) mg/dL 1.4 H Estimated GFR/1.73 m2 (mL/min/1.73m2) 50.10 Glucose (74-106) mg/dL 156 H Calcium (8.5-10.1) mg/dL 9.3 Magnesium (1.8-2.4) mg/dL 1.9 Total Bilirubin (0.2-1.0) mg/dL 0.6 AST (15-37) U/L 21 ALT (16-63) U/L 21 Alkaline Phosphatase (46-116) U/L 94 Creatine Kinase (39-308) U/L 152 Troponin I (<or=60) ng/L Total Protein (6.4-8.2) g/dL 7.2 Albumin (3.4-5.0) g/dL 3.7 Urine Color (Yellow) Urine Clarity (Clear) Urine pH (5-8) Ur Specific [place] (1.005-1.025) Urine Protein (Negative) mg/dL Urine Ketones (Negative) mg/dL Urine Blood (Negative) Urine Nitrite (Negative) Urine Bilirubin (Negative) Urine Urobilinogen (Up TO 0.2) EU/dL Ur Leukocyte Esterase (Negative) Urine Glucose (Negative) mg/dL Salicylates (<2.8) mg/dL < 2.8 Urine Opiates Screen (Negative) Urine Methadone Screen (Negative) Acetaminophen (10-30) ug/mL < 2 Ur Barbiturates Screen (Negative) Ur Tricyclics Screen (Negative) Ur Amphetamines Screen (Negative) U Benzodiazepines Scrn (Negative) Urine Cocaine Screen (Negative) Ur THC Screen (Negative) Ethyl Alcohol (<10) mg/dL < 3.0 COVID-19 Source SARS-CoV-2 (PCR) (Negative) Range/Units 11/23/21 11/23/21 11/23/21 12:55 12:55 13:15 WBC (4.4-10.8) 10^3/uL RBC (4.36-5.78) 10^6/uL Hgb (13.5-17.5) g/dL Hct (40.0-50.0) % MCV (80-95) fL MCH (27.0-33.0) pg MCHC (32.0-36.0) % RDW (11.8-14.1) % Plt Count (130-400) 10^3/uL MPV (8.0-11.0) fL Immature Gran % Neutrophils % Lymphocytes % Monocytes % Eosinophils % Basophils % Nucleated RBC % (0.0-0.3) % Absolute Neutrophils (1.2-6.7) 10^3/uL Absolute Lymphocytes (1.2-3.4) 10^3/uL Absolute Monocytes (0.1-0.8) 10^3/uL Absolute Eosinophils (0.0-0.7) 10^3/uL Absolute Basophils (0.0-0.2) 10^3/uL Sodium (136-145) mmol/L Potassium (3.5-5.1) mmol/L Chloride (98-107) mmol/L Carbon Dioxide (21.0-32.0) mmol/L Anion Gap (3-11) mmol/L BUN (7-18) mg/dL Creatinine (0.70-1.30) mg/dL Estimated GFR/1.73 m2 (mL/min/1.73m2) Glucose (74-106) mg/dL Calcium (8.5-10.1) mg/dL Magnesium (1.8-2.4) mg/dL Total Bilirubin (0.2-1.0) mg/dL AST (15-37) U/L ALT (16-63) U/L Alkaline Phosphatase (46-116) U/L Creatine Kinase (39-308) U/L Troponin I (<or=60) ng/L < 50 Total Protein (6.4-8.2) g/dL Albumin (3.4-5.0) g/dL Urine Color (Yellow) Urine Clarity (Clear) Urine pH (5-8) Ur Specific Oxford (1.005-1.025) Urine Protein (Negative) mg/dL Urine Ketones (Negative) mg/dL Urine Blood (Negative) Urine Nitrite (Negative) Urine Bilirubin (Negative) Urine Urobilinogen (Up TO 0.2) EU/dL Ur Leukocyte Esterase (Negative) Urine Glucose (Negative) mg/dL Salicylates (<2.8) mg/dL Urine Opiates Screen (Negative) Negative Urine Methadone Screen (Negative) Negative Acetaminophen (10-30) ug/mL Ur Barbiturates Screen (Negative) Negative Ur Tricyclics Screen (Negative) Negative Ur Amphetamines Screen (Negative) Negative U Benzodiazepines Scrn (Negative) Negative Urine Cocaine Screen (Negative) Negative Ur THC Screen (Negative) Negative Ethyl Alcohol (<10) mg/dL COVID-19 Source Nasal/Nares SARS-CoV-2 (PCR) (Negative) Negative Range/Units 11/23/21 13:15 WBC (4.4-10.8) 10^3/uL RBC (4.36-5.78) 10^6/uL Hgb (13.5-17.5) g/dL Hct (40.0-50.0) % MCV (80-95) fL MCH (27.0-33.0) pg MCHC (32.0-36.0) % RDW (11.8-14.1) % Plt Count (130-400) 10^3/uL MPV (8.0-11.0) fL Immature Gran % Neutrophils % Lymphocytes % Monocytes % Eosinophils % Basophils % Nucleated RBC % (0.0-0.3) % Absolute Neutrophils (1.2-6.7) 10^3/uL Absolute Lymphocytes (1.2-3.4) 10^3/uL Absolute Monocytes (0.1-0.8) 10^3/uL Absolute Eosinophils (0.0-0.7) 10^3/uL Absolute Basophils (0.0-0.2) 10^3/uL Sodium (136-145) mmol/L Potassium (3.5-5.1) mmol/L Chloride (98-107) mmol/L Carbon Dioxide (21.0-32.0) mmol/L Anion Gap (3-11) mmol/L BUN (7-18) mg/dL Creatinine (0.70-1.30) mg/dL Estimated GFR/1.73 m2 (mL/min/1.73m2) Glucose (74-106) mg/dL Calcium (8.5-10.1) mg/dL Magnesium (1.8-2.4) mg/dL Total Bilirubin (0.2-1.0) mg/dL AST (15-37) U/L ALT (16-63) U/L Alkaline Phosphatase (46-116) U/L Creatine Kinase (39-308) U/L Troponin I (<or=60) ng/L Total Protein (6.4-8.2) g/dL Albumin (3.4-5.0) g/dL Urine Color (Yellow) Yellow Urine Clarity (Clear) Clear Urine pH (5-8) 5.5 Ur Specific Oxford (1.005-1.025) 1.015 Urine Protein (Negative) mg/dL Negative Urine Ketones (Negative) mg/dL 40 H Urine Blood (Negative) Negative Urine Nitrite (Negative) Negative Urine Bilirubin (Negative) Negative Urine Urobilinogen (Up TO 0.2) EU/dL 0.2 Ur Leukocyte Esterase (Negative) Negative Urine Glucose (Negative) mg/dL Negative Salicylates (<2.8) mg/dL Urine Opiates Screen (Negative) Urine Methadone Screen (Negative) Acetaminophen (10-30) ug/mL Ur Barbiturates Screen (Negative) Ur Tricyclics Screen (Negative) Ur Amphetamines Screen (Negative) U Benzodiazepines Scrn (Negative) Urine Cocaine Screen (Negative) Ur THC Screen (Negative) Ethyl Alcohol (<10) mg/dL COVID-19 Source SARS-CoV-2 (PCR) (Negative) HPI <JESSICA Ramesh - Last Filed: 11/26/21 16:33> General Date/Time Provider Initiated Documentation: 11/23/21 12:15. HPI Narrative: This 71-year-old male with history of palliative care, dementia, DNR/DNI, bipolar disorder presents with report of dehydration, and increasing dementia and mental health concerns. called the police today as patient is refusing to eat or drink and she feels it is severely depressed at home. This is a similar presentation the patient's prior hospitalizations reportedly. There is been no reported trauma or attempts to harm self. He has been taking his Seroquel as instructed. He was discharged approximately 2 weeks ago from rehab so and did receive his medication last evening. Related Data Home Medications Medication Instructions Recorded Confirmed cetirizine 10 mg tablet 10 mg PO DAILY 11/23/20 11/23/21 magnesium oxide 400 mg PO DAILY 11/23/20 11/23/21 melatonin 3 mg tablet 6 mg PO HS 11/23/20 11/23/21 aspirin 81 mg chewable tablet 81 mg PO DAILY #30 tabs 11/25/20 11/23/21 lorazepam 2 mg tablet (Ativan) 2 mg PO BID PRN #30 tabs 11/25/20 11/23/21 atorvastatin 80 mg tablet 80 mg PO QPM #90 tabs 12/17/20 11/23/21 tamsulosin 0.4 mg capsule 0.4 mg PO DAILY #90 caps 08/14/21 11/23/21 bupropion HCl 100 mg tablet,12 hr 200 mg PO BID 10/22/21 11/23/21 sustained-release folic acid 1 mg tablet 1 mg PO DAILY 10/22/21 11/23/21 mirtazapine 15 mg tablet 45 mg PO HS 10/22/21 11/23/21 olanzapine 10 mg disintegrating 10 mg PO BID 10/22/21 11/23/21 tablet polyethylene glycol 3350 17 gram 17 g PO DAILY 10/22/21 11/23/21 oral powder packet quetiapine 25 mg tablet 75 mg PO BID #90 tabs 10/22/21 11/23/21 sennosides 8.6 mg-docusate sodium 2 tab-cap PO BID 10/22/21 11/23/21 50 mg tablet thiamine HCl (vitamin B1) 100 mg 100 mg PO DAILY 10/22/21 11/23/21 tablet Previous Rx's Medication Instructions Recorded aspirin 81 mg chewable tablet 81 mg PO DAILY #30 tabs 11/25/20 lorazepam 2 mg tablet (Ativan) 2 mg PO BID PRN #30 tabs 11/25/20 atorvastatin 80 mg tablet 80 mg PO QPM #90 tabs 12/17/20 tamsulosin 0.4 mg capsule 0.4 mg PO DAILY #90 caps 08/14/21 quetiapine 25 mg tablet 75 mg PO BID #90 tabs 10/22/21 Allergies Allergy/AdvReac Type Severity Reaction Status Date / Time bee pollen Allergy Severe swelling Verified 11/23/20 22:06 General SALINA: 1 Review of Systems <JESSICA Ramesh - Last Filed: 11/26/21 16:33> All systems reviewed & are unremarkable except as noted in HPI and below PFSH <JESSICA Ramesh - Last Filed: 11/26/21 16:33> All Active Problems (Updated 11/24/21 @ 18:41 by Sascha Schmidt MD) Hard of hearing (Chronic) refuses to wear hearing aids Health care proxy on file (Chronic) , Sisi Shepherd daughter, Monica El, back-up DNI (do not intubate) (Acute) DNR (do not resuscitate) (Acute) POLST (Physician Orders for Life-Sustaining Treatment) (Acute) Vaccine counseling (Acute) Dementia (Chronic) Palliative care patient (Acute) Incontinence of bowel (Acute) Incontinence of urine (Acute) Frequent falls (Acute) Carotid stenosis (Acute) Acute kidney injury (Acute) Discharge planning issues (Acute) DVT prophylaxis (Acute) Exposure to excessive natural heat (Acute) Atrial flutter by electrocardiogram (Acute) Altered mental status (Acute) Medically noncompliant (Acute) Confusion (Acute) Taking multiple medications for chronic disease (Acute) Ambulatory dysfunction (Acute) Bipolar disorder (Chronic) diagnosed in 1992 mood swings all his life Leg cramps (Acute) Neural hearing loss, bilateral (Acute) Nasal turbinate hypertrophy (Acute) Congenital nasal septum deviation (Acute) Orthopnea (Acute) Breathlessness (Acute) Low back pain (Acute) Sleep disorder (Acute) Nasal obstruction (Acute) Diverticula of colon (Acute) Bipolar disorder, current episode manic severe with psychotic features (Acute) Tremor (Acute 06/14/17) Paralysis agitans (Acute) Lynn (Acute 01/06/17) Bipolar 1 disorder (Chronic 07/29/15) Persistent mood disorder (Chronic) a lot of contributing stressors Essential hypertension (Chronic) Medical History (Updated 11/24/21 @ 18:41 by Sascha Schmidt MD) Hyperlipidemia, unspecified Surgical History History of colonoscopy History of orchiectomy, unilateral left Family History (Updated 12/06/20 @ 07:06 by Carrie Trammell MD) Mother , 73 of her chronic lung disease Depression Asthma Bipolar 1 disorder Chronic lung disease Father , age 61 from heart failure Kidney malignancy Heart disease Hyperlipidemia Hypertension Sister No problems noted. Sister No problems noted. Sister Heart disease Hyperlipidemia Hypertension Sister No problems noted. Sister No problems noted. Brother Heart disease Brother , age 48 fro Sudden Cardiac Heart disease Hyperlipidemia Hypertension Maternal Grandfather , 64 Heart disease Hyperlipidemia Hypertension Paternal Grandfather , 56 Heart disease Hyperlipidemia Hypertension Maternal Grandmother , 70 Asthma Stroke Paternal Grandmother , 80 No problems noted. Son No problems noted. Daughter No problems noted. Social History (Updated 12/06/20 @ 07:03 by Carrie Trammell MD) Smoking/Tobacco Use Status: Former Tobacco Use Quit Date: 08/03/18 Quit status: has quit before Smoking risk assessment performed?: Yes Alcohol Intake: never Drug use: Never Substance use type: does not use Caregiver/Support person: Yes () Household members: spouse Housing: other Details: camper [place] in [place]; friend's trailer [place] [facility] Number of Children: 2 number of grandchildren: 5 Communication Needs: Corrective Lenses Education Level: high school Do you need help understanding health information?: Always current occupation: retired from [employer] Pets and animals: Yes Pets and animals: dog(s) Sexually active: Yes Do you think of yourself as: straight/heterosexual Current gender identity: male What is your relationship status?: How often do you talk on the phone with friends or family?: once per week How often do you get together with friends or relatives?: twice per week How often do you attend sikh or lutheran services?: 4 or more times per year Do you belong to any clubs or organized social groups?: no Panel score (0-1 are the most socially isolated patients): 3 What type of physical activity do you participate in: walking Duration: 15-30 minutes/day Frequency: does not exercise Eloisa/Mormon: Yarsanism Special eloisa needs: No Agree to transfusion: No Seatbelt use: always Working smoke detector in home: Yes Fire extinguisher in home: Yes Do you feel safe at home: Yes Do you feel safe in your relationship?: Yes Additional Social history: is his caregiver. They live in a camper during the summer at [facility] and stay for free at a friend's trailer in [facility] during the winter. Met at daughter's house in [facility] where they frequently go for meals, socializing, etc. He has hearing aids he refuses to wear. Neither Se[place] nor vaccinated against COVID 19. Limits ability to go to [facility] [place] or be considered for placement at community care homes. No savings to pay for LTC. Not on [facility] for care yet. Discussed planning. Filled out [employer] and health care agent paperwork. Exam <JESSICA Ramesh - Last Filed: 11/26/21 16:33> Const Limitations: other limitations Eyes Pupils: PERRL Resp Effort & Inspection: normal respiratory effort Auscultation: clear to auscultation bilaterally Cardio Rate: regular rate Rhythm: regular rhythm GI Inspection: normal to inspection Skin General skin exam: no rashes or lesions noted Neuro Gait: normal gait Other: catatonic state Extrem General: normal to inspection Sign Out <JESSICA Ramesh - Last Filed: 11/26/21 16:33> Sign Out Data: Sign Out Comment: pending [facility], med consult psych Last updated by Anastasiya Rodriguez PA at 11/23/21 16:07 Sign Out Comment: Pending Re-eval in am. Hx of Bipolar, arrived in catatonic state. Patient awoke and ate a sandwich and walked to . unable to fully eval patient due to patient compliance. Has been calm and cooperative otherwise. Last updated by Elsa Livingston NP at 11/23/21 23:52 Sign Out Comment: no interventions needed throughout the night Last updated by Baron Patiño DO at 11/24/21 07:17 Sign Out Comment: EE, await 2nd cert. see notes, stable thru AM Last updated by Anthony Shukla MD at 11/24/21 14:32 Sign Out Comment: EE. Stable through shift superintendent caustic cresylate Last updated by Anthony Shukla MD at 11/26/21 02:55 Sign Out Comment: Awaiting psychiatric placement Last updated by Dewey Nath MD at 11/26/21 17:43 Sign Out Comment: Patient stable throughout the shift. No interventions needed Last updated by Baron Patiño DO at 11/26/21 22:19 Sign Out Comment: EE. remained calm through shift superintendent caustic cresylate Last updated by Anthony Shukla MD at 11/27/21 05:40
[2021-11-23] MEDS: Normal Saline 1,000 ML 1000 ML IV (13:16)
[2021-11-23 13:19] LABS: Source Nasal/Nares
[2021-11-23 13:27] LABS: Abs Immature Grans 0.04 10^3/uL (0.0-0.06); Absolute Basophil Count 0.04 10^3/uL (0.0-0.2); Absolute Eosinophil Count 0.29 10^3/uL (0.0-0.7); Absolute Lymphocyte Count 1.92 10^3/uL (1.2-3.4); Basophils % 0.3; Eosinophils % 2.4; HCT 50.4 % (40.0-50.0); HGB 17.4 g/dL (13.5-17.5); Immature Grans % 0.3; Lymphocytes % 16.1; MCH 30.5 pg (27.0-33.0); MCHC 34.5 % (32.0-36.0); MCV 88 fL (80-95); MPV 12.5 fL (8.0-11.0); Monocytes % 9.2; Neutrophils % 71.7; Platelet Count 255 10^3/uL (130-400); RBC 5.71 10^6/uL (4.36-5.78); RDW 13.3 % (11.8-14.1); RDW-SD 43.2 fL
[2021-11-23 13:30] LABS: Absolute Monocyte Count 1.09 10^3/uL (0.1-0.8); Absolute Neutrophil Count 8.53 10^3/uL (1.2-6.7)
--- NOTE | 2021-11-23 13:30 | DI.CT_ITS ---
Exam(s) CT HEAD WO EXAM: CT HEAD WO CLINICAL HISTORY: ams. TECHNIQUE: Imaging Protocol: Axial computed tomography images with coronal and sagittal reformatted images were created and reviewed COMPARISON: CT CT HEAD WO from 11/23/2020 FINDINGS: There is moderate generalized cerebral atrophy. No evidence of acute intracranial hemorrhage, mass effect, or midline shift. The orbital structures are unremarkable. The temporal bone structures appear intact. Calvarium: Normal. Visualized Paranasal sinuses/Mastoids: Clear. IMPRESSION: No evidence of acute intracranial process. RADIATION DOSE DELIVERED: 816.73mGy.cm Total DLP 816.73mGy.cm Total DLP !Error CTDIvol DATA REPOSITORY: All CT scans at this facility are submitted to the National Radiology Data Registry (NRDR) Dose Index Registry (DIR) with the [employer] (ACR). RADIATION OPTIMIZATION: All CT scans at this facility use at least one of these dose optimization te chniques: automated exposure control; mA and/or kV adjustment per patient size (includes targeted exa ms where dose is matched to clinical indication); or iterative reconstruction.
--- NOTE | 2021-11-23 13:40 | NUR.NOTE ---
Pt is non-verbal no family present, unable to confirm meds with pt. Pt has Dr. Abdirashid Barboza from [facility] listed as his PCP
[2021-11-23 13:42] LABS: Bilirubin Negative (Negative); Blood Negative (Negative); Clarity Clear (Clear); Glucose Negative (Negative); Ketones 40 mg/dL (Negative); Leukocyte Esterase Negative (Negative); Nitrite Negative (Negative); Specific Gravity 1.015 (1.005-1.025); Urobilinogen 0.2 EU/dL (Up TO 0.2); pH 5.5 (5-8)
[2021-11-23 13:44] LABS: *AMPHETAMINES SCREEN URINE Negative (Negative); *BARBITURATES SCREEN URINE Negative (Negative); *BENZODIAZEPINES SCREEN URINE Negative (Negative); Cannabinoids THC Negative (Negative); Cocaine Screen,Urine Negative (Negative); METHADONE URINE SCREEN Negative (Negative); OPIATES URINE SCREEN Negative (Negative)
[2021-11-23 13:44] LABS: ALT 21 U/L (16-63); AST 21 U/L (15-37); Albumin 3.7 g/dL (3.4-5.0); Alkaline Phosphatase 94 U/L (46-116); Anion Gap 10.9 mmol/L (3-11); BUN 18 mg/dL (7-18); Bilirubin, Total 0.6 mg/dL (0.2-1.0); CO2 27.1 mmol/L (21.0-32.0); CREATININE 1.4 mg/dL (0.70-1.30); Calcium 9.3 mg/dL (8.5-10.1); Chloride 100 mmol/L (98-107); Creatine Kinase 152 U/L (39-308); Glucose 156 mg/dL (74-106); Magnesium 1.9 mg/dL (1.8-2.4); Potassium 3.2 mmol/L (3.5-5.1); Sodium 138 mmol/L (136-145); Total Protein 7.2 g/dL (6.4-8.2)
--- NOTE | 2021-11-23 13:45 | DI.RAD_ITS ---
Exam(s) XR CHEST 1V IN DI DEPT EXAM: XR CHEST 1V IN DI DEPT CLINICAL HISTORY: ams. TECHNIQUE: 2D digital imaging was performed. COMPARISON: CR,XR XR PORTABLE CHEST AP from 12/10/2019 FINDINGS: LUNGS: Clear. No pleural abnormality seen. HEART: Normal. MEDIASTINUM: Normal. OTHER FINDINGS: None. IMPRESSION: No acute pulmonary findings. DATA REPOSITORY: RADIATION DOSE DELIVERED: Total DLP
[2021-11-23 13:46] LABS: ETHANOL BLOOD < 3.0 mg/dL (<10)
[2021-11-23 13:47] LABS: Tricyclic Antidepressants Negative (Negative)
[2021-11-23 13:52] LABS: COVID-19 PCR Negative (Negative)
[2021-11-23 14:05] LABS: Salicylate < 2.8 mg/dL (<2.8)
[2021-11-23 14:09] LABS: Acetaminophen < 2 ug/mL (10-30)
[2021-11-23 14:23] LABS: Troponin I < 50 ng/L (<or=60)
--- NOTE | 2021-11-23 20:28 | NUR.NOTE ---
Nursing Note:PT REPORTS FEELING HUNGRY, CHICKEN SALAD SANDWICH & GINGERALE GIVEN. PT REMAINS AT BEDSIDE, STATES PT HAS NOT HAD APPETITE SO THIS WAS AN IMPROVEMENT FOR PT. PROVIDER AWARE.
[2021-11-23] MEDS: Mirtazapine 15 MG TAB 45 MG PO (22:40)
[2021-11-23] MEDS: buPROPion-CR 100 MG TABCR 200 MG PO (22:40)
[2021-11-23] MEDS: QUEtiapine 25 MG TAB 75 MG PO (22:41)
[2021-11-24] MEDS: Tamsulosin 0.4 MG CAPCR PO (09:45)
[2021-11-24] MEDS: QUEtiapine 25 MG TAB 75 MG PO ×3 (09:46→20:31)
[2021-11-24] MEDS: Cetirizine 10 MG TAB PO (09:47)
[2021-11-24] MEDS: Thiamine 100 MG TAB PO (09:47)
[2021-11-24] MEDS: Magnesium Oxide 400 MG TAB PO (09:47)
[2021-11-24] MEDS: Aspirin 81 MG CHEW CH (09:50)
[2021-11-24] MEDS: Folic Acid 1 MG TAB PO (09:50)
[2021-11-24] MEDS: buPROPion-CR 100 MG TABCR 200 MG PO ×2 (09:51→21:02)
[2021-11-24 11:41] VITALS: PULSE 0; O2SAT 96
[2021-11-24 11:42] VITALS: BP 145/90; PULSE 0; PULSE 82
--- NOTE | 2021-11-24 16:30 | MHPN_ITS ---
Date of service: 11/24/21 Time of Service: 16:31 Mental Health Emergency Note Release [facility] release signed:: No Reason for Visit Client is a 71 year old, , man who lives with his in [facility]. He has a known history with [facility] and was recently discharged form [facility] in [place]. He currently is waiting for an assessment by a psychiatrist as he is on a MH Warrant. This is his first assessment of the day. In the last 2 weeks has the pt presented for ES prior to today?: No Client Information Client is: Adult Outpatient Well Housed: Yes Current Treatment Team if applicable First care bridge/structure inspection team leader: Name: Dr. Chapito Brooks Role: Psychiatrist Contact Info: [phone] Non Suicidal Self Injury Current: No History: No Safety Risk/Harm to Self or Others Current Ideation to Harm Self or Others: No Risk: Does risk to harm exist?: yes. Access to means: No. Risk: Moderate Risk Duty to warn indicated: No Asssessment/Mental Status Appearance: Disheveled, Poor hygiene and Other (Hair is oily and he lies in bed covered with no shirt on. ) Attitude: Cooperative, Guarded and Other (When the client is not interested in answering he closes his eyes and does not engage. ) Behavior: Unremarkable Speech: Normal Affect: Flat Mood: Depressed Thought process: Other (Unable to assess as he is not engaging in the assessment outside of one word answers.) Hallucinations: No Delusions: No Attention: Inattention Perception: Not impaired Orientation: Fully orientated Memory: Intact Insight: Poor Judgement: Poor Neurovegetative Symptoms Sleep: Decrease Appetitie: Disordered (Client did eat breakfast this am and is about to drink an ensure ) Substance Use: Do you use nicotine?: No Have you used substances in the last 7 days?: No Additional Issues: Assaultive/Threatening Behavior: No Medical Concerns: Yes Client engaged in active self harm w/weapon: No Threatening to run away: No Child reported abuse/neglect: No Voluntarily presenting for services: No Domestic violence is a concern: No Extreme Psychosis or extreme behavior is present: Yes Impression Client appears to be more lucid and oriented today vis his interactions with COLE Jaquez on 11.23.2021. He still was not willing to engage much in an assessment and his memory of this clinician was non existent. Plan/Disposition Recommended Disposition: Hospitalization facilities contacted and Psych Screening. Plan: Dr. Shukla would like for the client to be evaluated face to face to decide outcome. Dr. Shukla completed the physician's first certification which was faxed.? Client will remain at [facility] pending his second certification that should happen after 5pm today. If the certification passes the client will remain at [facility] and assessed twice daily while placement is sought. If not the client will be safety planned. Person reported agreement to plan: No Facilities contacted if Applicable [facility] (limited bed space send referral - Sascha ) Not accepted, (limited bed space send referral - Sascha ) No bed available [facility] (Only in house referrals today but ssend referral. - Allyson) Not accepted, (Only in house referrals today but ssend referral. - Allyson) No bed available [facility] (Only in house referrals today - Kei ) Not accepted, Other (Only in house referrals today - Kei ), [facility] (Have beds send referral and it albaro lbe reviewed. Vinnie ) Not accepted, (Have beds send referral and it albaro lbe reviewed. Vinnie ) Other Reports/communication Outcome discussed with: ED/Personnel Final Disposition/Discharge Transportation Checklist completed and faxed: No
--- NOTE | 2021-11-24 18:39 | W.EDPROG ---
Date of service: 11/24/21 Time of Service: 18:39 Medical Decision Making pt stable, per staff has been talking intermittently on my exam doesn't talk or answer questions does have eyes open and will intermittently move extremities such as used his hands to itch his nose. He had his second cert done and uphelp. Remains on EE status Sign Out Sign Out Data: Sign Out Comment: pending [facility], med consult psych Last updated by Anastasiya Rodriguez PA at 11/23/21 16:07 Sign Out Comment: Pending Re-eval in am. Hx of Bipolar, arrived in catatonic state. Patient awoke and ate a sandwich and walked to . unable to fully eval patient due to patient compliance. Has been calm and cooperative otherwise. Last updated by Elsa Livingston NP at 11/23/21 23:52 Sign Out Comment: no interventions needed throughout the night Last updated by Baron Patiño DO at 11/24/21 07:17 Sign Out Comment: EE, await 2nd cert. see notes, stable thru AM Last updated by Anthony Shukla MD at 11/24/21 14:32 Discharge Plan Disposition Patient Disposition: STILL A PATIENT Condition: Stable Discharge Details Chief Complaint: PsychEval Clinical Impression: Bipolar 1 disorder, Dementia Primary Care Provider: Jose Eduardo Barboza ED Provider: Sascha Schmidt [place] Meds and New Rx's Prescriptions: No Action quetiapine 25 mg tablet 75 mg PO BID Qty: 90 3RF bupropion HCl 100 mg tablet sustained-release 12 hr 200 mg PO BID mirtazapine 15 mg tablet 45 mg PO HS polyethylene glycol 3350 17 gram powder in packet 17 g PO DAILY Label Comments: 17g daily in 8oz fluid sennosides-docusate sodium 8.6-50 mg tablet 2 tab-cap PO BID olanzapine 10 mg tablet,disintegrating 10 mg PO BID folic acid 1 mg tablet 1 mg PO DAILY thiamine HCl (vitamin B1) 100 mg tablet 100 mg PO DAILY atorvastatin 80 mg tablet 80 mg PO QPM Qty: 90 3RF tamsulosin 0.4 mg capsule 0.4 mg PO DAILY Qty: 90 3RF cetirizine 10 mg Tablet 10 mg PO DAILY melatonin 3 mg Tablet 6 mg PO HS magnesium oxide 400 mg magnesium Tablet 400 mg PO DAILY aspirin 81 mg Tablet,Chewable 81 mg PO DAILY Qty: 30 0RF lorazepam [Ativan] 2 mg tablet 2 mg PO BID PRNQty: 30 0RF
[2021-11-24] MEDS: LORazepam 1 MG TAB 2 MG PO (20:30)
[2021-11-24] MEDS: Mirtazapine 15 MG TAB 45 MG PO (20:30)
[2021-11-25] MEDS: Magnesium Oxide 400 MG TAB PO (08:20)
[2021-11-25] MEDS: Thiamine 100 MG TAB PO (08:20)
[2021-11-25] MEDS: Cetirizine 10 MG TAB PO (08:20)
[2021-11-25] MEDS: Tamsulosin 0.4 MG CAPCR PO (08:20)
[2021-11-25] MEDS: Folic Acid 1 MG TAB PO (08:20)
[2021-11-25] MEDS: Aspirin 81 MG CHEW CH (08:20)
[2021-11-25] MEDS: buPROPion-CR 100 MG TABCR 200 MG PO ×2 (08:22→22:11)
[2021-11-25] MEDS: QUEtiapine 25 MG TAB 75 MG PO ×2 (08:22→22:18)
--- NOTE | 2021-11-25 08:49 | CMSP_ITS ---
- If Service Date Differs Date of service: 11/25/21 Time of Service: 08:49 Care Management Safety Plan Status: Involuntary - Reason for Wait Reason for Wait: Inpatient Admission INVOLUNTARY FOR INPATIENT PSYCHIATRIC STABILIZATION. Chief Complaint: Sebas presents in the ED via police on a Warrant for Emergency Examination due to an inability to care for himself and a refusal to eat or drink for several days. Upon arrival in the ED, Sebas is in a catatonic state and does not engage with staff, per ED notes. Sebas has a significant psychiatric history with multiple hospitalizations. He receives services t [facility] and has a diagnosis of Bipolar Disorder. Referrals are faxed to [facility], [facility], [facility], and [facility] for review. [facility] and other facilities do not currently have any available beds. Sebas will remain at [facility] involuntarily and will be assessed twice daily by [facility] until a psychiatric placement can be secured for him. CM will continue to follow. A decentralized huddle is done with Ailyn, nursing catalyst supervisor, IBAN Quick, JACK Null Tech, Carol [facility], and LILIAM De Souza. Safety plan has been established to meet the needs of the patient, and consideration of the care team, to adhere to patient goals, identify restrictions based on behavioral status, address nutrition, and determine allowed personal belongings, tools for hygiene and personal care. Determine level of activity including ambulation, level of supervision, visitors, and determine privileges based on behaviors and level of engagement by pt. SAFETY PLAN: 1. Will remain on SI/HI precautions. 2. Will remain in room under direct supervision of one-on-one staff at all times provided by CPSO, IVÁN, AVIONICS SYSTEMS INTEGRATION SPECIALIST paint line operator. 3. May have paper cups, plates, finger foods as well as a cardboard spoon to eat meals. 4. Follow [facility] Management of the Admitted Behavioral Health Patient policy. 5. Shower permitted with escort at RN discretion. 6. No personal belongings with the exception of clothes approved by RN. 7. Visitors: Limited to , Sisi Shepherd, and daughter, Monica El. 8. Activities: Soft cart items, music tablet, television if available, and other activities at RN discretion. 9. Bathroom privileges with escort. 10. Phone: May use [facility] phone at RN discretion. 11. Due to INVOLUNTARY status, patient is being held at [facility] by the Department of Mental Health ([facility]). A 2nd certification by [facility] Psychiatrist conducted on 11/24/21 finds patient a person in need of treatment and upholds the involuntary status. Staff will provide de-escalation support (CPI) as needed. If patient wishes to leave [facility], staff will contact [facility] Crisis Screener ([phone]) and On-Call Utility Pipe Layer ([phone]) as soon as possible. In the event of elopement, notify [facility] Police ([phone]). Patient is currently involuntarily at [facility]. [facility] Frontline Immigration Case Manager will continue seeking placement. Please contact the General Internal Medicine Physician Utility Pipe Layer ([phone]) for any needed changes to Safety Plan. Safety plan has been provided to interdepartmental care team. Patient will be transported by ssrs developer at time of discharge.
--- NOTE | 2021-11-25 08:49 | PDOC.CMSAFED ---
- If Service Date Differs Date of service: 11/25/21 Time of Service: 08:49 Care Management Safety Plan Status: Involuntary - Reason for Wait Reason for Wait: Inpatient Admission INVOLUNTARY FOR INPATIENT PSYCHIATRIC STABILIZATION. Chief Complaint: Sebas presents in the ED via police on a Warrant for Emergency Examination due to an inability to care for himself and a refusal to eat or drink for several days. Upon arrival in the ED, Sebas is in a catatonic state and does not engage with staff, per ED notes. Sebas has a significant psychiatric history with multiple hospitalizations. He receives services through [facility] and has a diagnosis of Bipolar Disorder. Referrals are faxed to [facility], [facility], [facility], and [facility] for review. [facility] and other facilities do not currently have any available beds. Sebas will remain at [facility] involuntarily and will be assessed twice daily by [facility] until a psychiatric placement can be secured for him. CM will continue to follow. A decentralized huddle is done with Ailyn, nursing customer services supervisor, IBAN Quick, Tennille, JACK Richardson, Carol [facility], and LILIAM De Souza. Safety plan has been established to meet the needs of the patient, and consideration of the care team, to adhere to patient goals, identify restrictions based on behavioral status, address nutrition, and determine allowed personal belongings, tools for hygiene and personal care. Determine level of activity including ambulation, level of supervision, visitors, and determine privileges based on behaviors and level of engagement by pt. SAFETY PLAN: 1. Will remain on SI/HI precautions. 2. Will remain in room under direct supervision of one-on-one staff at all times provided by CPSO, IVÁN, DINKEY MOTOR OPERATOR equine science instructor. 3. May have paper cups, plates, finger foods as well as a cardboard spoon to eat meals. 4. Follow [facility] Management of the Admitted Behavioral Health Patient policy. 5. Shower permitted with escort at RN discretion. 6. No personal belongings with the exception of clothes approved by RN. 7. Visitors: Limited to , Sisi Shepherd, and daughter, Monica El. 8. Activities: Soft cart items, music tablet, television if available, and other activities at RN discretion. 9. Bathroom privileges with escort. 10. Phone: May use cordless hospital phone at RN discretion. 11. Due to INVOLUNTARY status, patient is being held at [facility] by the Department of Mental Health ([facility]). A 2nd certification by [facility] Psychiatrist conducted on 11/24/21 finds patient a person in need of treatment and upholds the involuntary status. Staff will provide de-escalation support (CPI) as needed. If patient wishes to leave [facility], staff will contact [facility] Crisis Screener ([phone]) and On-Call Metal Trades Instructor ([phone]) as soon as possible. In the event of elopement, notify [facility] Police ([phone]). Patient is currently involuntarily at [facility]. [facility] Frontline Slip Mixer will continue seeking placement. Please contact the Se[employer] Professional Metal Trades Instructor ([phone]) for any needed changes to Safety Plan. Safety plan has been provided to interdepartmental care team. Patient will be transported by radio division officer at time of discharge.
--- NOTE | 2021-11-25 10:40 | NUR.NOTE ---
service writer spoke with patients about the patients base line mobility status. she reported that he walked independently at home and spent a lot of time outdoors when he was not in this type of mental state. Provider ordered Physical Therapy evaluation. agreed with this plan of care
--- NOTE | 2021-11-25 10:54 | IN_ITS ---
Date of service: 11/25/21 Time of Service: 10:54 PT Notes Physical Therapy Emergency Department Initial Evaluation Date: 11/25/2021 Referring Doctor: Pito Nieves MD PT Orders: PT CONSULT: Fall safety assessment Precautions: Fall. Standard. Activity as tolerated. Impaired safety awareness due to dementia. Patient Profile/Admitting Diagnosis: Sebas is a 79-year-old male who presented to the ED on 11/23/2021 for fall safety assessment referred by Dr. Nieves today for discharge planning. PMHX: All Active Problems?(Updated 11/24/21 @ 18:41 by Sascha Schmidt MD) Hard of hearing (Chronic) refuses to wear hearing aidsHealth care proxy on file (Chronic) , Sisi Shepherd daughter, Monica El, back-up DNI (do not intubate) (Acute) DNR (do not resuscitate) (Acute) POLST (Physician Orders for Life-Sustaining Treatment) (Acute) Vaccine counseling (Acute) Dementia (Chronic) Palliative care patient (Acute) Incontinence of bowel (Acute) Incontinence of urine (Acute) Frequent falls (Acute) Carotid stenosis (Acute) Acute kidney injury (Acute) Discharge planning issues (Acute) DVT prophylaxis (Acute) Exposure to excessive natural heat (Acute) Atrial flutter by electrocardiogram (Acute) Altered mental status (Acute) Medically noncompliant (Acute) Confusion (Acute) Taking multiple medications for chronic disease (Acute) Ambulatory dysfunction (Acute) Bipolar disorder (Chronic) diagnosed in 1992 mood swings all his life Leg cramps (Acute) Neural hearing loss, bilateral (Acute) Nasal turbinate hypertrophy (Acute) Congenital nasal septum deviation (Acute) Orthopnea (Acute) Breathlessness (Acute) Low back pain (Acute) Sleep disorder (Acute) Nasal obstruction (Acute) Diverticula of colon (Acute) Bipolar disorder, current episode manic severe with psychotic features (Acute) Tremor (Acute 06/14/17) Paralysis agitans (Acute) Lynn (Acute 01/06/17) Bipolar 1 disorder (Chronic 07/29/15) Persistent mood disorder (Chronic) a lot of contributing stressors Essential hypertension (Chronic) Medical History?(Updated 11/24/21 @ 18:41 by Sascha Schmidt MD) Hyperlipidemia, unspecified Surgical History? History of colonoscopy History of orchiectomy, unilateral left Social History/Home Situation: Lives with in a private home. is primary caregiver as patient has dementia. Equipment Owned/DME: None Subjective: Agreed to PT consult. Patient reports being tired and feeling safer with use of FWW during ambulation activity. states that has declined signifincatly over the last two weeks and had been looking unstable with walking. Objective: General Observation: Supine in gurney. present during assessment. No lines present. Mental Status: Alert but disoriented x 3. Able to follow single step commands with moderate verbal, tactile and visual cueing. Pain: Denies Vital Signs: WNL as closlely monitored by ED nursing staff ROM: Right Upper Extremity: Shoulder Flexion WFL. Shoulder abduction WFL. Elbow flexion WFL. Wrist flexion WFL. Functional opening and closing of hand WFL. Left Upper Extremity: Shoulder Flexion WFL. Shoulder abduction WFL. Elbow flexion WFL. Wrist flexion WFL. Functional opening and closing of hand WFL. Right Lower Extremity: Hip flexion WFL. Hip abduction WFL. Knee flexion WFL. Ankle dorsiflexion WFL. Ankle plantarflexion WFL. Left Lower Extremity: Hip flexion WFL. Hip abduction WFL. Knee flexion WFL. Ankle dorsiflexion WFL. Ankle plantarflexion WFL. Strength: Right Upper Extremity: Shoulder flexors 4-/5. Shoulder abductors 4-/5. Elbow flexors 4-/5. Elbow extensors 4-/5. Penetration Tester strong. Left Upper Extremity: Shoulder flexors 4-/5. Shoulder abductors 4-/5. Elbow flexors 4-/5. Elbow extensors 4-/5. Penetration Tester strong. Right Lower Extremity: Hip flexors 4-4-/5. Hip abductors 4-/5. Knee flexors 4- /5. Knee extensors 4-/5. Ankle dorsiflexors 4-/5. Ankle plantarflexors 4-/5. Left Lower Extremity: Hip flexors 4-4-/5. Hip abductors 4-/5. Knee flexors 4-/5. Knee extensors 4-/5. Ankle dorsiflexors 4-/5. Ankle plantarflexors 4-/5. Bed Mobility/Transfers: Rolling stand by assist Supine to sit stand by assist Sit to supine stand by assist Sit to stand contact guard assist with FWW Stand to sit contact guard assist with FWW Gait: Instructed patient with level surface ambulation of 150 feet requiring contact guard assist. Valentina decreased. Step height decreased. Step length decreased. Minimally short of breath, resolved with rest. Moderate cues provided for walker management and dreictional changes. Balance: Static Sitting: Normal Dynamic Sitting: Normal Static Standing: Fair Dynamic Standing: Fair Special Tests: Mobility Limitations Standardized Measure [facility] 6 clicks Basic Mobility Inpatient Short Form: Raw Score: 18 CMS Score: 47% deficit 4-stage Balance test: Unable to maintain all 4 positions due to pre-existing balance and impaired safety awareness Informed Consent/Education: Patient and were instructed in purpose of PT consult Assessment: Patient requires the use of a front wheeled walker and assistance of 1 person for all mobility task performance. Moderate verbal, visual, and tactile cueing needed to reduce fall risk and ensure safe technique. Patient presents with clinical signs and symptoms consistent with current/admitting diagnoses that have resulted to mobility limitations, gait instability, generalized weakness, and overall ADL decline as demonstrated by the following impairment level findings: 1. Decreased strength to B UE/LE major muscle groups 2. Impaired sitting/standing balance 3. Impaired activity tolerance 4. Impaired safety awareness Impairments are contributing to the following functional limitations: 1. Decline in bed mobility skills 2. Decline in transfer skills 3. Difficulty with ambulation without assistive device and physical assistance 4. Increased completion time for mobility ADL performance 5. Increased risk for falls 6. Difficulty with managing steps alone safely Patient is assessed as a 37061 moderate complexity based on the following: History: 71-year-old male with past medical history as indicated above Examination: Demonstrable impairment in strength, balance, and mobility level with underlying impairments and functional limitations as exhibited above as well as deficit score of 47% utilizing the [facility] Mobility Inpatient Short Form Presentation: Evolving Decision Makin moderate complexity Goals: N/A. PT evaluation only. Plan of Care/Treatment Plan: N/A. PT evaluation only. DISCHARGE RECOMMENDATIONS: [] Home with no services [] [] Home with services [specify] [] Home with outpatient PT [] [] SNF for continued rehabilitation [] [] Senior Living Care [] [X] SNF versus LTC based on ability to participate and progress. Discharge to recommended facility once cleared by . will benefit from the use of a front wheeled walker to increase stability of walking and reduce fall risk. TREATMENT CODE/TIME: 06129 x 26 minutes beginning at 10:54 AM. Thank you for the opportunity to participate in the care of this patient. Diana Goodrich PT, DPT, CLT [facility] [place], [place]
[2021-11-25 11:24] VITALS: BP 134/78; PULSE 80; RESP 17; TEMP 37.2; O2SAT 96
--- NOTE | 2021-11-25 13:02 | PDOC.MHPN2 ---
Date of service: 11/25/21 Time of Service: 13:02 Mental Health Emergency Note Release [facility] release signed:: No Reason for Visit Client is a 71 year old, , man who lives with his in [facility]. He has a known history with [facility] and was recently discharged form [facility] in [place]. He currently is waiting for an assessment by a psychiatrist as he is on a MH Warrant. This is his first assessment of the day. In the last 2 weeks has the pt presented for ES prior to today?: No Client Information Client is: Adult Outpatient Current Treatment Team if applicable First care cafe team member: Name: Dr. Chapito Brooks Role: Med prescriber - [facility] Contact Info: [phone] Non Suicidal Self Injury Current: No History: No Safety Risk/Harm to Self or Others Current Ideation to Harm Self or Others: No Risk: Does risk to harm exist?: No Risk: N/A Duty to warn indicated: No Asssessment/Mental Status Appearance: Disheveled Attitude: Cooperative and Friendly Behavior: Unremarkable Speech: Normal Affect: Cogruent with mood Mood: Depressed Thought process: Poverty of content Hallucinations: No Delusions: No Attention: Unremarkable Perception: Not impaired Orientation: Fully orientated Memory: Impaired in: (recent events i.e. does not remember telling the psychiatrist last night he was suicidal or homicidal. ) Recent Insight: Fair Judgement: Fair Neurovegetative Symptoms Sleep: Increase Appetitie: Increase Interests: No change Energy: No change Libido: Not applicable Substance Use: Do you use nicotine?: No Have you used substances in the last 7 days?: No Additional Issues: Assaultive/Threatening Behavior: No Medical Concerns: No Client engaged in active self harm w/weapon: No Threatening to run away: No Child reported abuse/neglect: No Voluntarily presenting for services: No Domestic violence is a concern: No Extreme Psychosis or extreme behavior is present: Yes Impression Client is presenting more alert today and his memory seems to have improved. He recalls who this clinician's family is as how he knows this clinician. He is oriented to where he is, date and place. He struggles however with memories of recent events i.e. meeting with a psychiatrist last evening and telling them he was suicidal and homicidal. Plan/Disposition Recommended Disposition: Hospitalization facilities contacted. Plan: Client will remain on EE status at this time while his team manages his medications and prognosis. He will continue to be assessed twice daily by [facility] and referrals sent until he is either placed or has improved where he can appropriately safety plan home. Person reported agreement to plan: Yes Facilities contacted if Applicable [facility] Not accepted, No bed available [facility] Not accepted, (no beds today) Other [facility] Not accepted, (Only taking in house referrals ) No bed availableFORMERLY [facility] Not accepted, (Declined due to dementia and palliative care and would be better suited in hospital that has a medical facility. ) Other (Declined due to dementia and palliative care and would be better suited in hospital that has a medical facility. ) Reports/communication Outcome discussed with: ED/Personnel Final Disposition/Discharge Transportation Checklist completed and faxed: No
[2021-11-25 14:51] VITALS: BP 124/74; PULSE 68; RESP 16; TEMP 37; O2SAT 96
[2021-11-25 18:16] VITALS: BP 112/71; PULSE 67; RESP 16; TEMP 37.5; O2SAT 98
[2021-11-25] MEDS: LORazepam 1 MG TAB 2 MG PO (22:11)
[2021-11-25] MEDS: Mirtazapine 15 MG TAB 45 MG PO (22:11)
--- NOTE | 2021-11-25 23:38 | W.EDPROG ---
Date of service: 11/25/21 Time of Service: 23:38 Medical Decision Making Assumed care of the patient for the overnight shift of -. Took his evening medications, remained stable and cooperative with staff. Sign Out Sign Out Data: Sign Out Comment: pending [facility], med consult psych Last updated by Anastasiya Rodriguez PA at 11/23/21 16:07 Sign Out Comment: Pending Re-eval in am. Hx of Bipolar, arrived in catatonic state. Patient awoke and ate a sandwich and walked to . unable to fully eval patient due to patient compliance. Has been calm and cooperative otherwise. Last updated by Elsa Livingston NP at 11/23/21 23:52 Sign Out Comment: no interventions needed throughout the night Last updated by Baron Patiño DO at 11/24/21 07:17 Sign Out Comment: EE, await 2nd cert. see notes, stable thru AM Last updated by Anthony Shukla MD at 11/24/21 14:32 Discharge Plan Disposition Patient Disposition: STILL A PATIENT Condition: Stable Discharge Details Clinical Impression: Bipolar 1 disorder, Dementia Primary Care Provider: Jose Eduardo Barboza ED Provider: Anthony Shukla Home Meds and New Rx's Prescriptions: No Action quetiapine 25 mg tablet 75 mg PO BID Qty: 90 3RF bupropion HCl 100 mg tablet sustained-release 12 hr 200 mg PO BID mirtazapine 15 mg tablet 45 mg PO HS polyethylene glycol 3350 17 gram powder in packet 17 g PO DAILY Label Comments: 17g daily in 8oz fluid sennosides-docusate sodium 8.6-50 mg tablet 2 tab-cap PO BID olanzapine 10 mg tablet,disintegrating 10 mg PO BID folic acid 1 mg tablet 1 mg PO DAILY thiamine HCl (vitamin B1) 100 mg tablet 100 mg PO DAILY atorvastatin 80 mg tablet 80 mg PO QPM Qty: 90 3RF tamsulosin 0.4 mg capsule 0.4 mg PO DAILY Qty: 90 3RF cetirizine 10 mg Tablet 10 mg PO DAILY melatonin 3 mg Tablet 6 mg PO HS magnesium oxide 400 mg magnesium Tablet 400 mg PO DAILY aspirin 81 mg Tablet,Chewable 81 mg PO DAILY Qty: 30 0RF lorazepam [Ativan] 2 mg tablet 2 mg PO BID PRNQty: 30 0RF
--- NOTE | 2021-11-26 01:17 | MHPN_ITS ---
Date of service: 11/26/21 Time of Service: 21:25 Mental Health Emergency Note Release [facility] release signed:: Yes Reason for Visit Client is on EE status. In the last 2 weeks has the pt presented for ES prior to today?: Unknown Client Information Client is: Adult Outpatient Well Housed: Yes Non Suicidal Self Injury Current: No Safety Risk/Harm to Self or Others Current Ideation to Harm Self or Others: No Risk: Does risk to harm exist?: No Duty to warn indicated: No Asssessment/Mental Status Appearance: Disheveled Attitude: Demanding and Guarded Behavior: Agitated Speech: Slow Affect: Cogruent with mood Mood: Elevated, Stressed and Anxious Thought process: Poverty of content Hallucinations: No Delusions: No Attention: Wandering Perception: Not impaired Orientation: Disoriented in Situation (Client does not remember the entire situation of what put him in the hospital.) Memory: Impaired in: Recent Insight: Poor Judgement: Poor Neurovegetative Symptoms Sleep: Decrease (Client reports he does not sleep) Appetitie: Disordered (Client reports eating one meal today and then states we do not need to eat) Interests: Decrease Energy: Decrease Libido: Not applicable Additional Issues: Assaultive/Threatening Behavior: No Medical Concerns: No Client engaged in active self harm w/weapon: No Threatening to run away: No Child reported abuse/neglect: No Voluntarily presenting for services: No Domestic violence is a concern: No Extreme Psychosis or extreme behavior is present: No Impression This client is in need of short term intensive treatment to help stabilize his medications and help him think clearly. Plan/Disposition Recommended Disposition: Hospitalization (Facilities were contacted this morning.) facilities contacted. Plan: Client will wait at [facility] until placement is foudn. Reports/communication Outcome discussed with: ED/Personnel
--- NOTE | 2021-11-26 08:42 | CMSP_ITS ---
- If Service Date Differs Date of service: 11/26/21 Time of Service: 08:42 Care Management Safety Plan Status: Involuntary - Reason for Wait Reason for Wait: Inpatient Admission Safety plan has been established to meet the needs of the patient, and consideration of the care team, to adhere to patient goals, identify restrictions based on behavioral status, address nutrition, and determine allowed personal belongings, tools for hygiene and personal care. Determine level of activity including ambulation, level of supervision, visitors, and determine privileges based on behaviors and level of engagement by pt. SAFETY PLAN: 1. Will remain on SI/HI precautions. 2. Will remain in room under direct supervision of one-on-one staff at all times provided by CPSO, IVÁN, FENCE SETTER power sewing machine operator. 3. May have paper cups, plates, finger foods as well as a cardboard spoon to eat meals. 4. Follow [facility] Management of the Admitted Behavioral Health Patient policy. 5. Shower permitted with escort at RN discretion. 6. No personal belongings with the exception of clothes approved by RN. 7. Visitors: Limited to , Sisi Shepherd, and daughter, Monica El. 8. Activities: Soft cart items, music tablet, television if available, and other activities at RN discretion. 9. Bathroom privileges with escort. 10. Phone: May use [facility] hospital phone at RN discretion. 11. Due to INVOLUNTARY status, patient is being held at [facility] by the Department of Mental Health ([facility]). A 2nd certification by [facility] Psychiatrist conducted on 11/24/21 finds patient a person in need of treatment and upholds the involuntar y status. Staff will provide de-escalation support (CPI) as needed. If patient wishes to leave [facility], staff will contact [facility] Crisis Screener ([phone]) and On-Call Cigarette Seller ([phone]) as soon as possible. In the event of elopement, notify [place] [employer] Police ([phone]). Patient is currently involuntarily at [facility]. [facility] Frontline Sugar Mill Worker will continue seeking placement. Please contact the [employer] Ne[employer] Whipper Cigarette Seller ([phone]) for any needed changes to Safety Plan. Safety plan has been provided to interdepartmental care team. Patient will be transported by [facility] at time of discharge.
--- NOTE | 2021-11-26 08:42 | PDOC.CMSAFED ---
- If Service Date Differs Date of service: 11/26/21 Time of Service: 08:42 Care Management Safety Plan Status: Involuntary - Reason for Wait Reason for Wait: Inpatient Admission Safety plan has been established to meet the needs of the patient, and consideration of the care team, to adhere to patient goals, identify restrictions based on behavioral status, address nutrition, and determine allowed personal belongings, tools for hygiene and personal care. Determine level of activity including ambulation, level of supervision, visitors, and determine privileges based on behaviors and level of engagement by pt. SAFETY PLAN: 1. Will remain on SI/HI precautions. 2. Will remain in room under direct supervision of one-on-one staff at all times provided by CPSO, IVÁN, CAMPAIGN ADVISOR portfolio architect. 3. May have paper cups, plates, finger foods as well as a cardboard spoon to eat meals. 4. Follow [facility] Management of the Admitted Behavioral Health Patient policy. 5. Shower permitted with escort at RN discretion. 6. No personal belongings with the exception of clothes approved by RN. 7. Visitors: Limited to , Sisi Shepherd, and daughter, Monica El. 8. Activities: Soft cart items, music tablet, television if available, and other activities at RN discretion. 9. Bathroom privileges with escort. 10. Phone: May use [employer] hospital phone at RN discretion. 11. Due to INVOLUNTARY status, patient is being held at [facility] by the Department of Mental Health ([facility]). A 2nd certification by [facility] Psychiatrist conducted on 11/24/21 finds patient a person in need of treatment and upholds the involuntary status. Staff will provide de-escalation support (CPI) as needed. If patient wishes to leave [facility], staff will contact [facility] Crisis Screener ([phone]) and On-Call Psychologist ([phone]) as soon as possible. In the event of elopement, notify [place] [employer] Police ([phone]). Patient is currently involuntarily at [facility]. [facility] Frontline Pigment Processor will continue seeking placement. Please contact the Needle Bar Molder Psychologist ([phone]) for any needed changes to Safety Plan. Safety plan has been provided to interdepartmental care team. Patient will be transported by [facility] at time of discharge.
[2021-11-26] MEDS: buPROPion-CR 100 MG TABCR 200 MG PO ×2 (09:55→21:08)
[2021-11-26] MEDS: Cetirizine 10 MG TAB PO (09:55)
[2021-11-26] MEDS: Magnesium Oxide 400 MG TAB PO (09:55)
[2021-11-26] MEDS: Folic Acid 1 MG TAB PO (09:55)
[2021-11-26] MEDS: Thiamine 100 MG TAB PO (09:55)
[2021-11-26] MEDS: Aspirin 81 MG CHEW CH (09:55)
[2021-11-26] MEDS: Tamsulosin 0.4 MG CAPCR PO (09:55)
--- NOTE | 2021-11-26 11:17 | PDOC.MHPN2 ---
Date of service: 11/26/21 Time of Service: 11:17 Mental Health Emergency Note Release [facility] release signed:: No Reason for Visit Client is a 71 year old, , man who lives with his in [facility]. He has a known history with [facility] and was recently discharged form [facility] in [place]. He currently is waiting for an assessment by a psychiatrist as he is on a MH Warrant. This is his first assessment of the day. In the last 2 weeks has the pt presented for ES prior to today?: Unknown Client Information Client is: Adult Outpatient Current Treatment Team if applicable First care steam drier tender: Name: Dr. Chapito Brooks Role: Psychiatrist Contact Info: [phone] Non Suicidal Self Injury Current: No History: No Safety Risk/Harm to Self or Others Current Ideation to Harm Self or Others: No Risk: Does risk to harm exist?: No Risk: N/A Duty to warn indicated: No Asssessment/Mental Status Appearance: Disheveled and Poor hygiene Attitude: Other (Client presents as more withdrawn and unable to answer questions.) Behavior: Other (Client is observed closing his eyes and looking away as if he did not know how to answer the questions being asked even yes or no questions.) Speech: Soft Affect: Flat Mood: Depressed and Anxious Thought process: Other (Unable to assess.) Hallucinations: No Delusions: No Attention: Inattention Perception: Other (Unable to assess.) Orientation: Disoriented in (Unable to assess.) Time, Place, Person and Situation Memory: Impaired in: (Unable to assess.) Recent Insight: Poor Judgement: Poor Neurovegetative Symptoms Sleep: No change Appetitie: Decrease Interests: Decrease Energy: Decrease Libido: Not applicable Substance Use: Do you use nicotine?: No Have you used substances in the last 7 days?: No Additional Issues: Assaultive/Threatening Behavior: No Medical Concerns: No Client engaged in active self harm w/weapon: No Threatening to run away: No Child reported abuse/neglect: No Voluntarily presenting for services: No Domestic violence is a concern: No Extreme Psychosis or extreme behavior is present: Yes Impression Client appears to be more withdrawn today and unable to answer questions even yes or no after the first couple of questions. He had stated yes to eating however, his plate was full. He has poor insight and judgement at this time. His symptoms are concerning and it is difficult to decide if they are related to his depression or if it is related to his dementia diagnosis. This will be further assessed and discussed in the next couple of assessments. Plan/Disposition Recommended Disposition: Hospitalization facilities contacted. Plan: Client will be assessed twice daily by [facility] until placement is found or he is able to return back to his home with his safely. Person reported agreement to plan: No Facilities contacted if Applicable [facility] Not accepted, (denied due to dementia on 11.25.2021) Medical reasons [facility] (spoke with Allyson ) Not accepted, No bed available [facility] (Left message on charge nurse's cell. referral sent ) Not accepted, Other, [facility] Not accepted, (Denied due to dementia) Medical reasons Reports/communication Outcome discussed with: ED/Personnel Final Disposition/Discharge Transportation Checklist completed and faxed: No
[2021-11-26 14:01] VITALS: BP 125/80; PULSE 78; RESP 16; TEMP 37.5; O2SAT 95
--- NOTE | 2021-11-26 17:38 | W.EDPROG ---
Date of service: 11/26/21 Time of Service: 17:38 Medical Decision Making Care was signed out to me at shift change on 11/26/21 at 7:[address] Shukla. Patient here on involuntary hold for depression, catatonic state, also with dementia. Patient awaiting bed placement. Patient with intermittent catatonia today. Other times conversant. Sometimes confused. Patient was seen by designated agency crisis screener who noted that plan was for consultation with Dr. Brooks who unfortunately has been unavailable. No beds immediately available. Will continue to hold. Sign Out Sign Out Data: Sign Out Comment: pending [facility], med consult psych Last updated by Anastasiya Rodriguez PA at 11/23/21 16:07 Sign Out Comment: Pending Re-eval in am. Hx of Bipolar, arrived in catatonic state. Patient awoke and ate a sandwich and walked to . unable to fully eval patient due to patient compliance. Has been calm and cooperative otherwise. Last updated by Elsa Livingston NP at 11/23/21 23:52 Sign Out Comment: no interventions needed throughout the night Last updated by Baron Patiño DO at 11/24/21 07:17 Sign Out Comment: EE, await 2nd cert. see notes, stable thru AM Last updated by Anthony Shukla MD at 11/24/21 14:32 Sign Out Comment: EE. Stable through senior engineering tech Last updated by Anthony Shukla MD at 11/26/21 02:55 Discharge Plan Disposition Patient Disposition: STILL A PATIENT Condition: Serious Discharge Details Clinical Impression: Bipolar 1 disorder, Dementia Primary Care Provider: Jose Eduardo Barboza ED Provider: Dewey Nath Home Meds and New Rx's Prescriptions: No Action quetiapine 25 mg tablet 75 mg PO BID Qty: 90 3RF bupropion HCl 100 mg tablet sustained-release 12 hr 200 mg PO BID mirtazapine 15 mg tablet 45 mg PO HS polyethylene glycol 3350 17 gram powder in packet 17 g PO DAILY Label Comments: 17g daily in 8oz fluid sennosides-docusate sodium 8.6-50 mg tablet 2 tab-cap PO BID olanzapine 10 mg tablet,disintegrating 10 mg PO BID folic acid 1 mg tablet 1 mg PO DAILY thiamine HCl (vitamin B1) 100 mg tablet 100 mg PO DAILY atorvastatin 80 mg tablet 80 mg PO QPM Qty: 90 3RF tamsulosin 0.4 mg capsule 0.4 mg PO DAILY Qty: 90 3RF cetirizine 10 mg Tablet 10 mg PO DAILY melatonin 3 mg Tablet 6 mg PO HS magnesium oxide 400 mg magnesium Tablet 400 mg PO DAILY aspirin 81 mg Tablet,Chewable 81 mg PO DAILY Qty: 30 0RF lorazepam [Ativan] 2 mg tablet 2 mg PO BID PRNQty: 30 0RF
--- NOTE | 2021-11-26 19:57 | NUR.NOTE ---
Nursing Note:CAPACITOR REPAIRER and CAPACITOR REPAIRER/CPSO changed patient in bed. Patient declined standing to the bedside commode stating I cannot stand. CAPACITOR REPAIRER and CAPACITOR REPAIRER/CPSO repositioned patient on right side with pillow underneath. CAPACITOR REPAIRER notified RN of reddness on buttocks. RN assigned to patient came in to look at reddness on buttocks.
[2021-11-26] MEDS: QUEtiapine 25 MG TAB 75 MG PO (21:08)
[2021-11-26] MEDS: Mirtazapine 15 MG TAB 45 MG PO (21:08)
[2021-11-26] MEDS: LORazepam 1 MG TAB 2 MG PO (21:08)
[2021-11-27] MEDS: Tamsulosin 0.4 MG CAPCR PO (09:15)
[2021-11-27] MEDS: Folic Acid 1 MG TAB PO (09:15)
[2021-11-27] MEDS: QUEtiapine 25 MG TAB 75 MG PO (09:15)
[2021-11-27] MEDS: Magnesium Oxide 400 MG TAB PO (09:15)
[2021-11-27] MEDS: Cetirizine 10 MG TAB PO (09:15)
[2021-11-27] MEDS: Aspirin 81 MG CHEW CH (09:15)
[2021-11-27] MEDS: Thiamine 100 MG TAB PO (09:15)
[2021-11-27] MEDS: buPROPion-CR 100 MG TABCR 200 MG PO (09:15)
--- NOTE | 2021-11-27 13:03 | MHPN_ITS ---
Date of service: 11/27/21 Time of Service: 13:04 Mental Health Emergency Note Release [facility] release signed:: No Reason for Visit Client is a 71 year old, , man who lives with his in [facility]. He has a known history with [facility] and was recently discharged form [facility] in [place]. He currently is waiting for an assessment by a psychiatrist as he is on a MH Warrant. This is his first assessment of the day and he is being safety planned home. In the last 2 weeks has the pt presented for ES prior to today?: No Client Information Client is: Adult Outpatient Well Housed: Yes Current Treatment Team if applicable First care steam cleaner: Name: Dr. Chapito Brooks Role: Psychiatrist Contact Info: [phone] Non Suicidal Self Injury Current: No History: No Safety Risk/Harm to Self or Others Current Ideation to Harm Self or Others: No Risk: Does risk to harm exist?: No Risk: N/A Duty to warn indicated: No Asssessment/Mental Status Appearance: Disheveled and Poor hygiene Attitude: Cooperative Behavior: Other (withdrawn and tired.) Speech: Normal Affect: Flat Mood: Euthymic Thought process: Poverty of content Hallucinations: No Delusions: No Attention: Inattention Insight: Poor Judgement: Poor Neurovegetative Symptoms Sleep: No change Appetitie: Disordered Interests: No change Energy: Decrease Libido: Not applicable Substance Use: Do you use nicotine?: No Have you used substances in the last 7 days?: No Additional Issues: Assaultive/Threatening Behavior: No Medical Concerns: Yes Client engaged in active self harm w/weapon: No Threatening to run away: No Child reported abuse/neglect: No Voluntarily presenting for services: No Domestic violence is a concern: No Extreme Psychosis or extreme behavior is present: Yes Impression Client has been presenting more and more with symptoms consistent with dementia and less with symptoms of hussain or depression over the last 3 days. He is not at the baseline that he is known to this clinician at but this may be his new baseline. It is this clinician's professional opinion that the client does not meet criteria for an inpatient referral for psych at this time and should be walked off his EE status. Resources Reosurces reviewed and given:: [facility] and Other (Certified Medical Coding Specialist on Aging, Dementia support group, [place] [facility], case management with [facility]. ) Plan/Disposition Recommended Disposition: [facility] Services [facility] Services: Other, Med management and Community resources. Plan: Please see safety plan drafted with the for more details. Here is some highlights: [facility] ES team daily check in calls via . Appointment with psychiatrist for 11.28.2021 @9 am. This clinician will meet the at the home to assist in getting the client up and to his appointment. [facility] will do brief case management to assist in getting services in place. [facility] manager investigations and Dr. Nath will ensure home health is still involved. manager investigations will do a referral to Certified Medical Coding Specialist on Aging Family Will take client home and work with [facility] to get appropriate services in place. Will follow safety plan and recommendations of team players. Community supports in place are Home Health. Community supports needed are: [facility] Dementia Support Group Certified Medical Coding Specialist on Aging Medicaid Consultation with Dr. Ed Shi, Tank Crewmember for [facility] per Dr. Nath's request was had as well and briefed her on the safety plan for the client to which she agreed to. Person reported agreement to plan: Yes Reports/communication Outcome discussed with: ED/Personnel Final Disposition/Discharge Final accepting facility/transferred to: Other (Discharged home) Transportation Checklist completed and faxed: No
--- NOTE | 2021-11-27 13:44 | W.EDPROG ---
Date of service: 11/27/21 Time of Service: 16:00 Medical Decision Making There was signed out with plan to await reassessment by [facility] crisis screener. Patient was seen by [facility] crisis screener Carol and felt safe for discharge. They do not believe patient meets EE criteria any longer and is recommending outpatient management. I called and spoke with [place] [facility] of mental health respiratory care assistant as well as their medical billing specialist Dr. Robertson, reviewed ED case. Dr. Robertson spoke with [facility] and agrees with discharge plan. Patient is stable. Plan for discharge with family and plan for outpatient follow-up with [facility]. Discharge plan established with [facility] crisis screener. Plan was reviewed and discussed with the patient and his family who are in agreement. Maria Eugenia did note concern for distant hiccups. I recommended continued monitoring at this point and discussion with PCP should this continue. Sign Out Sign Out Data: Sign Out Comment: pending [facility], med consult psych Last updated by Anastasiya Rodriguez PA at 11/23/21 16:07 Sign Out Comment: Pending Re-eval in am. Hx of Bipolar, arrived in catatonic state. Patient awoke and ate a sandwich and walked to . unable to fully eval patient due to patient compliance. Has been calm and cooperative otherwise. Last updated by Elsa Livingston NP at 11/23/21 23:52 Sign Out Comment: no interventions needed throughout the night Last updated by Baron Patiño DO at 11/24/21 07:17 Sign Out Comment: EE, await 2nd cert. see notes, stable thru AM Last updated by Anthony Shukla MD at 11/24/21 14:32 Sign Out Comment: EE. Stable through shift foreman Last updated by Anthony Shukla MD at 11/26/21 02:55 Sign Out Comment: Awaiting psychiatric placement Last updated by Dewey Nath MD at 11/26/21 17:43 Sign Out Comment: Patient stable throughout the shift. No interventions needed Last updated by Baron Patiño DO at 11/26/21 22:19 Sign Out Comment: EE. remained calm through shift foreman Last updated by Anthony Shukla MD at 11/27/21 05:40 Discharge Plan Disposition Patient Disposition: HOME Condition: Stable Discharge Details Clinical Impression: Bipolar 1 disorder, Dementia Primary Care Provider: Jose Eduardo Barboza ED Provider: Dewey Nath Home Meds and New Rx's Prescriptions: Continued quetiapine 25 mg tablet 75 mg PO BID Qty: 90 3RF Rx Instructions: 11/29/21 pt is tapering to off by next week bupropion HCl 100 mg tablet sustained-release 12 hr 200 mg PO BID mirtazapine 15 mg tablet 45 mg PO HS polyethylene glycol 3350 17 gram powder in packet 17 g PO DAILY Label Comments: 17g daily in 8oz fluid sennosides-docusate sodium 8.6-50 mg tablet 2 tab-cap PO BID folic acid 1 mg tablet 1 mg PO DAILY thiamine HCl (vitamin B1) 100 mg tablet 100 mg PO DAILY tamsulosin 0.4 mg capsule 0.4 mg PO DAILY Qty: 90 3RF melatonin 3 mg Tablet 3 mg PO HS magnesium oxide 400 mg magnesium Tablet 400 mg PO DAILY aspirin 81 mg Tablet,Chewable 81 mg PO DAILY Qty: 30 0RF lorazepam [Ativan] 2 mg tablet 2 mg PO BID PRNQty: 30 0RF No Action cefuroxime axetil 500 mg tablet 500 mg PO BID Qty: 10 0RF Discharge Instructions Instructions: Bipolar Disorder (ED), Dementia (ED) Additional Instructions: Please follow-up with [facility] human services. Please follow-up with your primary care physician. Call today to schedule follow-up. Return to the ER immediately for any worsening or new concerning symptoms. Referrals: [facility] [Outside] Jose Eduardo Barboza MD [Primary Care Provider] - Discharge Data Discharge Date/Time-TO BE ENTERED AT DEPARTURE: 11/27/21 15:21
--- NOTE | 2021-11-27 13:49 | PDOC.ERCMPRO ---
- If Service Date Differs Date of service: 11/27/21 Time of Service: 13:49 Care Management Progress Note CM receives a phone call from Constance [facility] Crisis Screener. Constance advises [facility] intends to walk Sebas off of the EE as his symptoms are more consistent with a diagnosis of dementia than bipolar disorder. LILIAM discusses this new development with Dr. Nath, ED provider, who requests an evaluation be done by a psychiatrist before Sebas is walked off of the EE. LILIAM contacts [facility] and speaks with Carol who agrees to contact [place] and Dr. Brooks, [facility] psychiatrist, to arrange an evaluation. A short while later, LILIAM receives a call from Carol who states Dr. Brooks is unavailable today and [facility] has advised an evaluation by psychiatrist is not necessary. A plan is then made for Carol and LILIAM to meet with family to offer supports as Sebas is being discharged home. With family's approval, LILIAM makes a referral to [facility] and contacts [facility] to let them know Sebas is discharging to his daughter's home in [facility]. Sebas will follow up with his PCP and plan of care as instructed. Family transport him home via private vehicle.
--- NOTE | 2021-11-29 12:41 | NUR.NOTE ---
patient's called concerned because patient was having intermittent, forceful hiccups. Advised to either bring patient in for evaluation or call an ambulance if she felt he needed to be seen.
== END 2021-11-27 15:21 | disposition home or self-care (01) ==
PROVIDERS: Physician Assistant; Emergency Provider Student in an Organized Health Care Education/Training Program; PCP Family Medicine
DX: F31.9 Bipolar disorder, unspecified (principal); F06.1 Catatonic disorder due to known physiological condition; E87.6 Hypokalemia; I44.7 Left bundle-branch block, unspecified; Z87.891 Personal history of nicotine dependence; Z20.822 Contact with and (suspected) exposure to COVID-19
CPT/HCPCS: 80053; 80307; 82550; 87635; 93005; 96360; 97162; 99284; 99285; 70450; 71045; 80320; 80329; 81003; 83735; 84484; 85025; 93010

== ENCOUNTER 2021-11-29 14:18 | Observation (INO) | payer OTHER, SELFPAY ==
[2021-11-29] VITALS (55 sets, daily range): BP systolic 101–156; BP diastolic 53–129; PULSE 62–183; RESP 14–24; TEMP 36.7–38.4; O2SAT 94–98
--- NOTE | 2021-11-29 14:15 | RT.EKG_ITS ---
APPROVED REPORT Exam: Resting ECG Reason for Exam: hiccups Patient Location: E HR:95 bpm ECG Measurements Heart Rate 95 AXIS MD 210 P 72 QRSd 177 QRS -52 QT 413 T 103 QTc 520 Conclusion Sinus rhythm...normal P axis, V-rate 60- 99 Borderline prolonged MD interval...MD >207, V-rate 91-120 Left bundle branch block...QRSd>120, broad/notched R ST elevation secondary to IVCD...Multiple VCG criteria sinus rhythm, left axis, LBBB, largely unchanged from prior
--- NOTE | 2021-11-29 14:45 | DI.RAD_ITS ---
Exam(s) XR PORTABLE CHEST AP EXAM: XR PORTABLE CHEST AP CLINICAL HISTORY: sob. TECHNIQUE: 2D digital imaging was performed. COMPARISON: CR XR CHEST 1V IN DI DEPT from 11/23/2021 FINDINGS: Single AP portable view. Heart size is upper normal. The mediastinum is not widened. There is platelike atelectasis in the right lung base. Also mild increased markings in left lower lo be retrocardiac region. No obvious pleural effusions. Multiple healed right-sided rib fractures. N o pneumothorax. IMPRESSION: There is platelike atelectasis in the right lung base. DATA REPOSITORY: RADIATION DOSE DELIVERED: All CT scans at this facility use at least one of these dose optimization techniques: automated exposure control; mA and/or kV adjustment per patient size (includes targeted e xams where dose is matched to clinical indication); or iterative reconstruction.
--- NOTE | 2021-11-29 14:52 | ED.GENADUL_ITS ---
Discharge Plan Disposition Patient Disposition: [facility] Condition: Stable Discharge Details Chief Complaint: SOB Clinical Impression: Hiccoughs, Fatigue, Acute UTI Primary Care Provider: Jose Eduardo Barboza ED Provider: Jeremy Spring Home Meds and New Rx's Prescriptions: No Action quetiapine 25 mg tablet 75 mg PO BID Qty: 90 3RF Rx Instructions: 11/29/21 pt is tapering to off by next week bupropion HCl 100 mg tablet sustained-release 12 hr 200 mg PO BID mirtazapine 15 mg tablet 45 mg PO HS polyethylene glycol 3350 17 gram powder in packet 17 g PO DAILY Label Comments: 17g daily in 8oz fluid sennosides-docusate sodium 8.6-50 mg tablet 2 tab-cap PO BID olanzapine 10 mg tablet,disintegrating 10 mg PO BID folic acid 1 mg tablet 1 mg PO DAILY thiamine HCl (vitamin B1) 100 mg tablet 100 mg PO DAILY tamsulosin 0.4 mg capsule 0.4 mg PO DAILY Qty: 90 3RF melatonin 3 mg Tablet 6 mg PO HS magnesium oxide 400 mg magnesium Tablet 400 mg PO DAILY aspirin 81 mg Tablet,Chewable 81 mg PO DAILY Qty: 30 0RF lorazepam [Ativan] 2 mg tablet 2 mg PO BID PRNQty: 30 0RF Medical Decision Making 71-year-old male history of bipolar disorder, dementia, brought in by for evaluation of intractable hiccups shortness of breath tremor, staring forward during most of examination and history, largely information has been supplemented by at bedside, endorsing that he cannot get enough air despite normal respiratory effort clear lungs bilaterally normal oxygenation; no chest pain no peripheral edema. EKG showing left bundle branch block sinus rhythm unchanged from last EKG. Normotensive afebrile. No signs of trauma. Patient does have fine tremor otherwise strength is intact no ataxia. Currently tapering from quetiapine and Ativan consider medication withdrawal versus electrolyte abnormality versus less likely ACS versus unlikely PE pneumothorax or pneumonia. Must also consider primary psychiatric diagnosis versus progressive dementia. Will obtain screening labs x-ray EKG. Fluids benzodiazepine close reassessment 18: 39 patient resting comfortably hiccups have resolved. Bilateral external auditory canals clear. No hypoxia no tachypnea. Consider right lower lobe pneumonia with diaphragmatic irritation causing hiccups versus hiccups related to weaning from antipsychotics and benzos. Also patient was found to have UTI. Given a generalized fatigue and family comfort level patient be placed in observation for antibiotics reassessment HPI General Date/Time Provider Initiated Documentation: 11/29/21 14:27 . HPI Narrative: 71-year-old male history of bipolar disorder, dementia, recent psychiatric evaluation in the emergency department, currently tapering off of quetiapine and Ativan presents brought in by for jitteriness and patient endorsing that he cannot get enough air. History and physical limited by patient's mental status. No fevers no chills no cough no leg pain or swelling no chest pain. Related Data Home Medications Medication Instructions Recorded Confirmed magnesium oxide 400 mg PO DAILY 11/23/20 11/29/21 melatonin 3 mg tablet 6 mg PO HS 11/23/20 11/29/21 aspirin 81 mg chewable tablet 81 mg PO DAILY #30 tabs 11/25/20 11/29/21 lorazepam 2 mg tablet (Ativan) 2 mg PO BID PRN #30 tabs 11/25/20 11/29/21 tamsulosin 0.4 mg capsule 0.4 mg PO DAILY #90 caps 08/14/21 11/29/21 bupropion HCl 100 mg tablet,12 hr 200 mg PO BID 10/22/21 11/29/21 sustained-release folic acid 1 mg tablet 1 mg PO DAILY 10/22/21 11/29/21 mirtazapine 15 mg tablet 45 mg PO HS 10/22/21 11/29/21 olanzapine 10 mg disintegrating 10 mg PO BID 10/22/21 11/29/21 tablet polyethylene glycol 3350 17 gram 17 g PO DAILY 10/22/21 11/29/21 oral powder packet quetiapine 25 mg tablet 75 mg PO BID #90 tabs 10/22/21 11/29/21 sennosides 8.6 mg-docusate sodium 2 tab-cap PO BID 10/22/21 11/23/21 50 mg tablet thiamine HCl (vitamin B1) 100 mg 100 mg PO DAILY 10/22/21 11/23/21 tablet Previous Rx's Medication Instructions Recorded aspirin 81 mg chewable tablet 81 mg PO DAILY #30 tabs 11/25/20 lorazepam 2 mg tablet (Ativan) 2 mg PO BID PRN #30 tabs 11/25/20 tamsulosin 0.4 mg capsule 0.4 mg PO DAILY #90 caps 08/14/21 quetiapine 25 mg tablet 75 mg PO BID #90 tabs 10/22/21 Allergies Allergy/AdvReac Type Severity Reaction Status Date / Time bee pollen Allergy Severe swelling Verified 11/29/21 14:32 General Stated Complaint: SOB SALINA: 2 Review of Systems Narrative: Review of Systems Constitutional: negative Eyes: negative ENT: negative Cardiovascular: negative Respiratory: Shortness of breath Gastrointestinal: negative : negative Musculoskeletal: negative Skin: negative Neurologic: Tremor, hiccups Psych: negative PFSH All Active Problems (Updated 11/29/21 @ 18:40 by Jeremy Spring MD) Hiccoughs (Acute) Fatigue (Acute) Acute UTI (Acute) Hard of hearing (Chronic) refuses to wear hearing aids Health care proxy on file (Chronic) , Sisi Shepherd daughter, Monica El, back-up DNI (do not intubate) (Acute) DNR (do not resuscitate) (Acute) POLST (Physician Orders for Life-Sustaining Treatment) (Acute) Vaccine counseling (Acute) Dementia (Chronic) Palliative care patient (Acute) Incontinence of bowel (Acute) Incontinence of urine (Acute) Frequent falls (Acute) Carotid stenosis (Acute) Acute kidney injury (Acute) Discharge planning issues (Acute) DVT prophylaxis (Acute) Exposure to excessive natural heat (Acute) Atrial flutter by electrocardiogram (Acute) Altered mental status (Acute) Medically noncompliant (Acute) Confusion (Acute) Taking multiple medications for chronic disease (Acute) Ambulatory dysfunction (Acute) Bipolar disorder (Chronic) diagnosed in 1992 mood swings all his life Leg cramps (Acute) Neural hearing loss, bilateral (Acute) Nasal turbinate hypertrophy (Acute) Congenital nasal septum deviation (Acute) Orthopnea (Acute) Breathlessness (Acute) Low back pain (Acute) Sleep disorder (Acute) Nasal obstruction (Acute) Diverticula of colon (Acute) Bipolar disorder, current episode manic severe with psychotic features (Acute) Tremor (Acute 06/14/17) Paralysis agitans (Acute) Lynn (Acute 01/06/17) Bipolar 1 disorder (Chronic 07/29/15) Persistent mood disorder (Chronic) a lot of contributing stressors Essential hypertension (Chronic) Medical History (Updated 11/29/21 @ 18:40 by Jeremy Spring MD) Hyperlipidemia, unspecified Surgical History History of colonoscopy History of orchiectomy, unilateral left Family History (Updated 12/06/20 @ 07:06 by Carrie Trammell MD) Mother , 73 of her chronic lung disease Depression Asthma Bipolar 1 disorder Chronic lung disease Father , age 61 from heart failure Kidney malignancy Heart disease Hyperlipidemia Hypertension Sister No problems noted. Sister No problems noted. Sister Heart disease Hyperlipidemia Hypertension Sister No problems noted. Sister No problems noted. Brother Heart disease Brother , age 48 fro Sudden Cardiac Heart disease Hyperlipidemia Hypertension Maternal Grandfather , 64 Heart disease Hyperlipidemia Hypertension Paternal Grandfather , 56 Heart disease Hyperlipidemia Hypertension Maternal Grandmother , 70 Asthma Stroke Paternal Grandmother , 80 No problems noted. Son No problems noted. Daughter No problems noted. Social History (Updated 12/06/20 @ 07:03 by Carrie Trammell MD) Smoking/Tobacco Use Status: Former Tobacco Use Quit Date: 08/03/18 Quit status: has quit before Smoking risk assessment performed?: Yes Alcohol Intake: never Drug use: Never Substance use type: does not use Caregiver/Support person: Yes () Household members: spouse Housing: other Details: camper when in [place]; friend's trailer in [place] Number of Children: 2 number of grandchildren: 5 Communication Needs: Corrective Lenses Education Level: high school Do you need help understanding health information?: Always current occupation: retired from [employer] Pets and animals: Yes Pets and animals: dog(s) Sexually active: Yes Do you think of yourself as: straight/heterosexual Current gender identity: male What is your relationship status?: How often do you talk on the phone with friends or family?: once per week How often do you get together with friends or relatives?: twice per week How often do you attend baptist or muslim services?: 4 or more times per year Do you belong to any clubs or organized social groups?: no Panel score (0-1 are the most socially isolated patients): 3 What type of physical activity do you participate in: walking Duration: 15-30 minutes/day Frequency: does not exercise Eloisa/Anabaptist: Rastafarian Special eloisa needs: No Agree to transfusion: No Seatbelt use: always Working smoke detector in home: Yes Fire extinguisher in home: Yes Do you feel safe at home: Yes Do you feel safe in your relationship?: Yes Additional Social history: is his caregiver. They live in a camper during the summer at [facility] and stay for free at a friend's trailer in [place] during the winter. Met at daughter's house in [facility] where they frequently go for meals, socializing, etc. He has hearing aids he refuses to wear. Neither Sebas nor vaccinated against COVID 19. Limits ability to go to [facility] or be considered for placement at community care homes. No savings to pay for LTC. Not on [facility] for care yet. Discussed planning. Filled out [employer] and health care agent paperwork. Exam Narrative Exam Narrative: Physical Examination General: alert, awake, staring forward HEENT: normocephalic, atraumatic; PERRL, EOM intact, conjunctiva normal; no nasal discharge; slightly dry oral mucosa Neck: supple, trachea midline; full ROM Chest: normal to inspection Respiratory: normal respiratory effort, speaking in full sentences, clear to auscultation, no wheezing, rales or rhonchi Cardiac: regular rate, regular rhythm, S1S2 intact, no murmurs rubs or gallops GI: abdomen soft, non-tender, non-distended; no palpable mass or hepatosplenomegaly Skin: no lesions, rashes or trauma appreciated Neuro: Staring forward intermittently responding and interactive at times not interactive and staring blankly, normal speech, cranial nerves intact full strength upper and lower extremities bilaterally; fine tremor Extremities: No peripheral edema Psych: Blunted affect Course Vital Signs Vital signs: Vital Signs Temperature 37.2 C 11/29/21 14:24 Pulse 93 H 11/29/21 14:24 Respiratory Rate 19 11/29/21 14:24 Blood Pressure 156/87 H 11/29/21 14:24 Pulse Oximetry 96 11/29/21 14:24 Temperature 37.2 C 11/29/21 14:24 Temperature Source Temporal Artery Scan 11/29/21 14:24 Pulse 93 H 11/29/21 14:24 Respiratory Rate 19 11/29/21 14:24 Blood Pressure 156/87 H 11/29/21 14:24 Blood Pressure Position Supine 11/29/21 14:24 Pulse Oximetry 96 11/29/21 14:24 Oxygen Delivery Method Tent 11/29/21 14:24 Oxygen Flow Rate 0 11/29/21 14:24 Pain Level 3 11/29/21 14:24 Comment 11/29/21 14:24
[2021-11-29 15:12] LABS: Source Nasal/Nares
[2021-11-29] MEDS: Acetaminophen 325 MG TAB 650 MG PO (15:15)
[2021-11-29] MEDS: Normal Saline 1,000 ML 1000 ML IV (15:15)
[2021-11-29] MEDS: LORazepam 20 MG/10 ML VIAL IVP (15:15)
[2021-11-29 15:18] LABS: HCT 43.7 % (40.0-50.0); HGB 14.8 g/dL (13.5-17.5); MCH 30.7 pg (27.0-33.0); MCHC 33.9 % (32.0-36.0); MCV 91 fL (80-95); MPV 11.9 fL (8.0-11.0); RBC 4.82 10^6/uL (4.36-5.78); RDW 13.7 % (11.8-14.1); WBC 24.92 10^3/uL (4.4-10.8)
--- NOTE | 2021-11-29 15:20 | DI.VRAD_ITS ---
PROCEDURE INFORMATION: Exam: XR Chest Exam date and time: 11/29/2021 2:51 PM Age: 71 years old Clinical indication: Shortness of breath; Patient HX: SOB TECHNIQUE: Imaging protocol: Radiologic exam of the chest. Views: 1 view. Other technique: Portable exam. COMPARISON: CR XR CHEST 1V IN DI DEPT 11/23/2021 2:37 PM FINDINGS: Lungs: There is mild right lower lobe atelectasis. Pleural spaces: Unremarkable. No pleural effusion. No pneumothorax. Heart/Mediastinum: Heart size upper limits of normal. Vasculature: Mild aortic ectasia. Bones/joints: Unremarkable. Soft tissues: There is overlying chin artifact. IMPRESSION: Mild right atelectasis. No significant acute abnormality evident. Dictated and Authenticated by: Tiffany Miller MD. Ordering:ROBERTO Luna MD
[2021-11-29 15:29] LABS: ALT 26 U/L (16-63); AST 41 U/L (15-37); Alkaline Phosphatase 98 U/L (46-116); Anion Gap 5.7 mmol/L (3-11); BUN 13 mg/dL (7-18); Bilirubin, Total 0.7 mg/dL (0.2-1.0); CO2 28.3 mmol/L (21.0-32.0); CREATININE 1.2 mg/dL (0.70-1.30); Calcium 9.6 mg/dL (8.5-10.1); Chloride 106 mmol/L (98-107); Estimated GFR 59.86 (mL/min/1.73m2); Glucose 122 mg/dL (74-106); Sodium 140 mmol/L (136-145); Total Protein 7.5 g/dL (6.4-8.2); Troponin I < 50 ng/L (<or=60)
[2021-11-29 15:33] LABS: Platelet Count 259 10^3/uL (130-400)
[2021-11-29 15:35] LABS: Absolute Monocyte Count 2.99 10^3/uL (0.1-0.8); Absolute Neutrophil Count 20.43 10^3/uL (1.2-6.7); Diff Comment Manual Differential; RBC Morphology Normal
[2021-11-29 15:36] LABS: Potassium 5.3 mmol/L (3.5-5.1)
[2021-11-29 15:43] LABS: COVID-19 PCR Negative (Negative)
[2021-11-29 16:44] LABS: Bilirubin Negative (Negative); Blood Negative (Negative); Clarity Clear (Clear); Glucose Negative (Negative); Ketones Negative (Negative); Leukocyte Esterase Moderate (Negative); Nitrite Negative (Negative); Urobilinogen 0.2 EU/dL (Up TO 0.2)
[2021-11-29 16:56] LABS: Bacteria Rare HPF (Negative); C & S Indicated? Yes; Casts 0-2 Hyaline LPF (Negative); Crystals Negative HPF (Negative); Epithelial Cells Rare HPF (Negative); Mucus Trace (Negative); RBC 0-2 HPF (0-2)
--- NOTE | 2021-11-29 17:00 | RT.EKG_ITS ---
APPROVED REPORT Exam: Resting ECG Reason for Exam: hiccups Patient Location: E HR:74 bpm ECG Measurements Heart Rate 74 AXIS WY 224 P 55 QRSd 175 QRS -49 QT 436 T 123 QTc 485 Conclusion Sinus rhythm...normal P axis, V-rate 60- 99 Prolonged WY interval...WY >220, V-rate 50- 90 Left bundle branch block...QRSd>120, broad/notched R ST elevation secondary to IVCD...Multiple VCG criteria sinus rhythm, left axis, LBBB unchanged
[2021-11-29] MEDS: AZITHROMYCIN 500 MG in Normal Saline 250 ML 250 MG IVPB (17:23)
--- NOTE | 2021-11-29 18:26 | NUR.NOTE ---
pts , Isabel states that she does not feel that she can care for jeanine at home and asked if he could stay one night to see how he does. she lwft the department to fgo to her sisters house Nursing Note:
--- NOTE | 2021-11-29 18:41 | HPE_ITS ---
Date of service: 11/29/21 Time of Service: 18:41 Assessment and Plan Assessment and plan (1) Pneumonia: Start date: 11/29/21 Status: Acute Assessment and plan: This is a 71-year-old gentleman who presented with fever and hiccups found to have a possible right lower lobe with significant leukocytosis. He also had possible UTI which should be covered by 3. Acquired pneumonia pending urine cultures. He had no urinary symptoms. He did have hiccups. No significant cough or productive sputum. He was not hypoxic. He is a DNR/DNI. He is cared for by family at home. (2) Hiccoughs: Start date: 11/29/21 Status: Acute Assessment and plan: Symptomatic and intractable with Thorazine not given with the patient's history of drug-induced Parkinson's-like symptoms and some concerns of additional exposure. Treat pneumonia and symptomatically for now. Consider alternative therapy if problematic. (3) Fatigue: Start date: 11/29/21 Status: Acute Assessment and plan: Associated with presenting symptoms most likely secondary to acute febrile illness and possible infectious etiologies. Monitor as we treat possible pneumonia and UTI. Make sure adequate hydration orally consider IV hydration. (4) Acute UTI: Start date: 11/29/21 Status: Acute Assessment and plan: Urine culture and follow-up pathogen with adjustment to oral therapy as indicated. He will be placed on Rocephin with Zithromax for pneumonia (5) Dementia: Status: Chronic Assessment and plan: Worsening symptoms with acute illness progression by reported history from family. (6) Bipolar disorder: Status: Chronic Assessment and plan: Recently been weaned on medications with this being temporized while patient is acutely ill until reevaluation by PCP and psychiatry. Qualifiers: Active/Remission status: currently active Current bipolar episode type: depressed Current episode severity: moderate Qualified Code(s): F31.32 - Bipolar disorder, current episode depressed, moderate History of Present Illness History of Present Illness Chief Complaint: Weakness with hiccups, fever Narrative: Is a 71-year-old male patient with a history of bipolar disorder, dementia and Parkinson's-like symptoms on chronic psychiatric meds, recent psychiatric evaluation in the emergency department, currently tapering off of quetiapine and Ativan presented to the ED being brought in by for jitteriness, intractable hiccups and endorsing that he cannot get enough air.? History and physical limited by patient's mental status.? No fevers, no chills, no cough, no leg pain or swelling and no chest pain. Patient was asleep when I approached him and he stated that. I cannot really. He was snoring when approached. He was arousabl e with sternal rub he responded but did not speak to the nurse reported he was speaking clearly benefits before. He does have waxing and mental clarity with his dementia. Patient reportedly with intermittent difficulty arousing as discussed above. Interim evaluation by the ED provider: 71-year-old male history of bipolar disorder, dementia, brought in by for evaluation of intractable hiccups shortness of breath tremor, staring forward during most of examination and history, largely information has been supplemented by at bedside, endorsing that he cannot get enough air despite normal respiratory effort clear lungs bilaterally normal oxygenation; no chest pain no peripheral edema.? EKG showing left bundle branch block sinus rhythm unchanged from last EKG.? Normotensive afebrile.? No signs of trauma.? Patient does have fine tremor otherwise strength is intact no ataxia.? Currently tapering from quetiapine and Ativan consider medication withdrawal versus electrolyte abnormality versus less likely ACS versus unlikely PE pneumothorax or pneumonia.? Must also consider primary psychiatric diagnosis versus progressive dementia.? Will obtain screening labs x-ray EKG.? Fluids b enzodiazepine close reassessment 18:39 patient resting comfortably hiccups have resolved.? Bilateral external auditory canals clear.? No hypoxia no tachypnea.? Consider right lower lobe pneumonia with diaphragmatic irritation causing hiccups versus hiccups related to weaning from antipsychotics and benzos.? Also patient was found to have UTI.? Given a generalized fatigue and family comfort level patient be placed in observation for antibiotics reassessment? Review of Systems Narrative: 13 point review of system otherwise unrevealing or unobtainable. PFSH All Active Problems (Updated 11/30/21 @ 06:46 by Chapito Coleman) Pneumonia (Acute) Hiccoughs (Acute) Fatigue (Acute) Acute UTI (Acute) Hard of hearing (Chronic) refuses to wear hearing aids Health care proxy on file (Chronic) , Sisi Shepherd daughter, Monica El, back-up DNI (do not intubate) (Acute) DNR (do not resuscitate) (Acute) POLST (Physician Orders for Life-Sustaining Treatment) (Acute) Vaccine counseling (Acute) Dementia (Chronic) Palliative care patient (Acute) Incontinence of bowel (Acute) Incontinence of urine (Acute) Frequent falls (Acute) Carotid stenosis (Acute) Acute kidney injury (Acute) Discharge planning issues (Acute) DVT prophylaxis (Acute) Exposure to excessive natural heat (Acute) Atrial flutter by electrocardiogram (Acute) Altered mental status (Acute) Medically noncompliant (Acute) Confusion (Acute) Taking multiple medications for chronic disease (Acute) Ambulatory dysfunction (Acute) Bipolar disorder (Chronic) diagnosed in 1992 mood swings all his life Leg cramps (Acute) Neural hearing loss, bilateral (Acute) Nasal turbinate hypertrophy (Acute) Congenital nasal septum deviation (Acute) Orthopnea (Acute) Breathlessness (Acute) Low back pain (Acute) Sleep disorder (Acute) Nasal obstruction (Acute) Diverticula of colon (Acute) Bipolar disorder, current episode manic severe with psychotic features (Acute) Tremor (Acute 06/14/17) Paralysis agitans (Acute) Lynn (Acute 01/06/17) Bipolar 1 disorder (Chronic 07/29/15) Persistent mood disorder (Chronic) a lot of contributing stressors Essential hypertension (Chronic) Medical History Hyperlipidemia, unspecified Surgical History History of colonoscopy History of orchiectomy, unilateral left Family History Mother , 73 of her chronic lung disease Depression Asthma Bipolar 1 disorder Chronic lung disease Father , age 61 from heart failure Kidney malignancy Heart disease Hyperlipidemia Hypertension Sister No problems noted. Sister No problems noted. Sister Heart disease Hyperlipidemia Hypertension Sister No problems noted. Sister No problems noted. Brother Heart disease Brother , age 48 fro Sudden Cardiac Heart disease Hyperlipidemia Hypertension Maternal Grandfather , 64 Heart disease Hyperlipidemia Hypertension Paternal Grandfather , 56 Heart disease Hyperlipidemia Hypertension Maternal Grandmother , 70 Asthma Stroke Paternal Grandmother , 80 No problems noted. Son No problems noted. Daughter No problems noted. Social History Smoking/Tobacco Use Status: Former Tobacco Use Quit Date: 08/03/18 Quit status: has quit before Smoking risk assessment performed?: Yes Alcohol Intake: never Drug use: Never Substance use type: does not use Caregiver/Support person: Yes () Household members: spouse Housing: other [place]; friend's trailer [place] [facility] Number of Children: 2 number of grandchildren: 5 Communication Needs: Corrective Lenses Education Level: high school Do you need help understanding health information?: Always current occupation: retired from [employer] Pets and animals: Yes Pets and animals: dog(s) Sexually active: Yes Do you think of yourself as: straight/heterosexual Current gender identity: male What is your relationship status?: How often do you talk on the phone with friends or family?: once per week How often do you get together with friends or relatives?: twice per week How often do you attend rastafari or christian services?: 4 or more times per year Do you belong to any clubs or organized social groups?: no Panel score (0-1 are the most socially isolated patients): 3 What type of physical activity do you participate in: walking Duration: 15-30 minutes/day Frequency: does not exercise Eloisa/Latter-Day: [employer] Special eloisa needs: No Agree to transfusion: No Seatbelt use: always Working smoke detector in home: Yes Fire extinguisher in home: Yes Do you feel safe at home: Yes Do you feel safe in your relationship?: Yes Additional Social history: is his caregiver. They live in a camper during the summer at [facility] and stay for free at a friend's trailer in [facility] during the winter. Met at daughter's house in [facility] where they frequently go for meals, socializing, etc. He has hearing aids he refuses to wear. Neither Se[place] nor vaccinated against COVID 19. Limits ability to go to [place] or be considered for placement at community care homes. No savings to pay for LTC. Not on Cho[facility] for care yet. Discussed planning. Filled out [employer]ST and health care agent paperwork. Meds Allergies and Home Medications Allergies Allergy/AdvReac Type Severity Reaction Status Date / Time bee pollen Allergy Severe swelling Verified 11/29/21 14:32 Home Medications Medication Instructions Recorded Confirmed Type magnesium oxide 400 mg PO DAILY 11/23/20 11/29/21 History melatonin 3 mg tablet 3 mg PO HS 11/23/20 11/30/21 History aspirin 81 mg chewable tablet 81 mg PO DAILY #30 tabs 11/25/20 11/29/21 Rx lorazepam 2 mg tablet (Ativan) 2 mg PO BID PRN #30 tabs 11/25/20 11/29/21 Rx tamsulosin 0.4 mg capsule 0.4 mg PO DAILY #90 caps 08/14/21 11/29/21 Rx bupropion HCl 100 mg tablet,12 hr 200 mg PO BID 10/22/21 11/29/21 History sustained-release folic acid 1 mg tablet 1 mg PO DAILY 10/22/21 11/29/21 History mirtazapine 15 mg tablet 45 mg PO HS 10/22/21 11/29/21 History polyethylene glycol 3350 17 gram 17 g PO DAILY 10/22/21 11/29/21 History oral powder packet quetiapine 25 mg tablet 75 mg PO BID #90 tabs 10/22/21 11/29/21 Rx sennosides 8.6 mg-docusate sodium 2 tab-cap PO BID 10/22/21 11/23/21 History 50 mg tablet thiamine HCl (vitamin B1) 100 mg 100 mg PO DAILY 10/22/21 11/23/21 History tablet Exam Narrative Exam Narrative: General: Patient appears older than stated age. Masklike facies, and minimal verbal interaction. He is arousable with sternal rub but does not open his eyes. He is not oriented to person, place or time. Nurses report that he had the hospital. HEENT: Normocephalic, eyes closed but when forced open, pupils equal and reactive to light symmetrically, extraocular movement intact and sclera anicteric. Oropharynx with dry mucosa. Neck: Supple without JVD. Heart: Bradycardic with normal rhythm, no appreciable murmur or gallop. Chest: Symmetric with rhythmic exams which are mild. Abdomen: Soft, nontender to palpation with no palpable hepatosplenomegaly. Bowel sounds: Exam deferred Extremities: Without clubbing, cyanosis or pitting edema. No joint swelling. Fair capillary refill. Neuro: Cranial nerves appear to be grossly intact with patient not answering questions with activity. Interviewer and does look for the interview with eyes open. No focal motor deficits. Reviewed ED with cogwheeling not tested. Patient was not tested for cerebellar function lying in bed. No Babinski. Skin: Normal color, warm and dry with rough texture. Psych: Flattened affect with expressionless face. Mood appears depressed and oriented.. No abnormal thought processes manifested. Remote and recent memory testing not possible. Results Imaging Imaging Studies: XR PORTABLE CHEST AP EXAM:? XR PORTABLE CHEST AP Date of Exam: 11/29/2021 CLINICAL HISTORY: ? sob. ? TECHNIQUE:? 2D digital imaging was performed. COMPARISON:? CR XR CHEST 1V IN DI DEPT from 11/23/2021 FINDINGS: Single AP portable view. Heart size is upper normal.? The mediastinum is not widened. There is platelike atelectasis in the right lung base.? Also mild increased markings in left lower lobe retrocardiac region.? No obvious pleural effusions.? Multiple healed right-sided rib fractures.? No pneumothorax. IMPRESSION: There is platelike atelectasis in the right lung base. Labs Result diagrams: 11/30/21 06:53 11/30/21 06:53 Labs: Laboratory Results - last 24 hr 11/29/21 11/29/21 11/29/21 15:00 15:00 15:04 WBC 24.92 H RBC 4.82 Hgb 14.8 Hct 43.7 MCV 91 MCH 30.7 MCHC 33.9 RDW 13.7 Plt Count 259 MPV 11.9 H Immature Gran % 0.0 Neutrophils % 82.0 Lymphocytes % 6.0 Monocytes % 12.0 Eosinophils % 0.0 Basophils % 0.0 Nucleated RBC % 0.0 Absolute Neutrophils 20.43 H Absolute Lymphocytes 1.50 Absolute Monocytes 2.99 H Absolute Eosinophils 0.00 Absolute Basophils 0.00 RBC Morphology Normal Sodium 140 Potassium 5.3 H Chloride 106 Carbon Dioxide 28.3 Anion Gap 5.7 BUN 13 Creatinine 1.2 Estimated GFR/1.73 m2 59.86 Glucose 122 H Calcium 9.6 Total Bilirubin 0.7 AST 41 H ALT 26 Alkaline Phosphatase 98 Troponin I < 50 Total Protein 7.5 Albumin 3.0 L Urine Color Urine Clarity Urine pH Ur Specific [place] Urine Protein Urine Ketones Urine Blood Urine Nitrite Urine Bilirubin Urine Urobilinogen Ur Leukocyte Esterase Urine RBC Urine WBC Ur Epithelial Cells Urine Crystals Urine Bacteria Urine Casts Urine Mucus Ur Culture Indicated? Urine Glucose COVID-19 Source Nasal/Nares SARS-CoV-2 (PCR) Negative 11/29/21 16:30 WBC RBC Hgb Hct MCV MCH MCHC RDW Plt Count MPV Immature Gran % Neutrophils % Lymphocytes % Monocytes % Eosinophils % Basophils % Nucleated RBC % Absolute Neutrophils Absolute Lymphocytes Absolute Monocytes Absolute Eosinophils Absolute Basophils RBC Morphology Sodium Potassium Chloride Carbon Dioxide Anion Gap BUN Creatinine Estimated GFR/1.73 m2 Glucose Calcium Total Bilirubin AST ALT Alkaline Phosphatase Troponin I Total Protein Albumin Urine Color Yellow Urine Clarity Clear Urine pH 7.0 Ur Specific [place] 1.010 Urine Protein Negative Urine Ketones Negative Urine Blood Negative Urine Nitrite Negative Urine Bilirubin Negative Urine Urobilinogen 0.2 Ur Leukocyte Esterase Moderate H Urine RBC 0-2 Urine WBC 10-20 H Ur Epithelial Cells Rare Urine Crystals Negative Urine Bacteria Rare Urine Casts 0-2 Hyaline Urine Mucus Trace Ur Culture Indicated? Yes Urine Glucose Negative COVID-19 Source SARS-CoV-2 (PCR) Last Vital Signs Temp 36.7 C 11/29/21 18:24 Pulse 64 11/29/21 18:24 Resp 17 11/29/21 18:24 BP 101/58 L 11/29/21 18:24 Pulse Ox 95 11/29/21 18:24
--- OUTSIDE RECORDS SUMMARY | 2021-11-29 19:37 | XMS_ITS | Encounter Summary ---
:1950 Author Organization [facility] Address [address] [place] [address] Care Team Providers Name Role Phone None, Provider Primary Care Provider Unavailable Encounter Details Date Type Department Care Team Description 12/08/2019 Lab Requisition [facility] Outr Resulting Lab, Pathology & Laboratory Provider [facility] [address] [place], [place] [address] Social History Tobacco Use Types Packs/Day Years Used Date Never Assessed Sex Assigned at Date Recorded Not on file documented as of this encounter Functional Status Cognitive Status Response Date of Assessment Because of a physical, mental, or emotional condition, do Ye s 08/31/2010 you have serious difficulty concentrating, remembering, or making decisions? (5 years old or older) documented as of this encounter Plan of Treatment Not on filedocumented as of this encounter Procedures Procedure Name Priority Date/Time Associated Diagnosis Comme nts COVID-19 TEST [facility] Today 12/08/2019 20:38 LAB PCR EDT COVID-19 TESTING Routine 12/08/2019 20:38 Results for this EDT procedure are i n the results section. documented in this encounter Results COVID-19 TEST [facility] LAB PCR (12/08/2019 20:38 EDT) Specimen Swab - Entire nasopharynx (body structur e) Performing Organization Address City/State/ZIP Code Phon e Number [facility] [address] [place] [address] SERVICES COVID-19 TESTING (12/08/2019 20:38 EDT) COVID-19 rt-PCR Negative Negative [facility] MED[facility] Result Comment: [facility] This test has not been FDA c leared or approved. This test has been authorized by FDA under an EUA for use by authorized laboratories. This test has been authorized only for detection of nucleic acid fro SERVICES m 2019-nCoV, not for any oth er viruses or pathogens. This test is only authorized for the duration of the declaration that circumstances exist justifying the authorization of emergency use of in vitro d iagnostic tests for detectio n and/or diagnosis of 2019-nCoV under section 564(b)(1) of Act, 21 U.S.C ?? 360bbb-3(b) (1), unless the authorization is terminated or revoked sooner. Negative results do not prec lude 2019-nCoV infection and should not be used as the sole basis for treatment or other patient management decisions. Negative results must be combined with clinical observa tions, patient history, and epidemiological informatio n. Performed on the Fuzmoher Fusion instrument Performing Lab [place] [facility] Lab [facility] SERVICES Specimen Swab Performing Organization Address City/State/ZIP Code Phon e Number [facility] [address] [place] [address] SERVICES documented in this encounter Visit Diagnoses Not on filedocumented in this encounter Care Teams Barrel Rifler Button Relationship Specialty Start Date End Date None, Provider PCP - General 08/29/10 documented as of this encounter
--- OUTSIDE RECORDS SUMMARY | 2021-11-29 19:37 | XMS_ITS | Encounter Summary ---
:1950 Author Organization [facility] Address [address] [place] [address] Care Team Providers Name Role Phone None, Provider Primary Care Provider Unavailable Encounter Details Date Type Department Care Team Description 11/22/2020 Lab Requisition [facility] Outr Resulting Lab, Pathology & Laboratory Provider [facility] [address], [place] [id number] Social History Tobacco Use Types Packs/Day Years [...] Name Priority Date/Time Associated Diagnosis Comme nts HERPES SIMPLEX Routine 11/21/2020 20:25 Results f or this VIRUS MOLECULAR EDT procedure ar e in DETECTION, PCR the results section. documented in this encounter Results HERPES SIMPLEX VIRUS MOLECULAR DETECTION, PCR (11/21/2020 20:25 EDT) Herpes Simplex Negative Negative [facility] MEDICAL Virus Molecular [facility] Detection 1, PCR SERVICES Herpes Simplex NegativeComment: This Negative [facility] MEDICAL Virus Molecular test was developed and [facility] Detection 2, PCR its performance SERVICES characteristics determined by [facility]. It has not been cleared or approved by the US Food and Drug Administration. FDA does not require this test to go through premarket FDA review. This test is used for clinical purposes. It should not be regarded as investigational or research. This laboratory is certified under the Clinical Laboratory Improvement Amendments (CLIA) as qualified to perform high complexity clinical laboratory testing. Specimen Fluid - Cerebrospinal fluid sample (spec imen) Performing Organization Address City/State/ZIP Code Phon e Number [facility] [address] [place] [address] SERVICES documented in this encounter Visit Diagnoses Not on filedocumented in this encounter Care Teams Body Art Technician Relationship Specialty Start Date End Date None, Provider PCP - General 08/29/10 documented as of this encounter
--- OUTSIDE RECORDS SUMMARY | 2021-11-29 19:37 | XMS_ITS | Encounter Summary ---
:1950 Author Organization [facility] [place] [address] Care Team Providers Name Role Phone Jose Eduardo Barboza MD Primary Care Provider [phone] Encounter Details Date Type Department Care Team Description 11/21/2020 Interpretation Only [address] Buster Zabala MD [place], [place] [address] [facility] [id number] [place] [address] (Wo rk) Social History Tobacco Use Types Packs/Day Years Used Date Never Assessed Sex Assigned at Date Recorded Not on file documented as of this encounter Plan of Treatment Not on filedocumented as of this encounter Procedures Procedure Name Priority Date/Time Associated Diagnosis Comme nts XR CHEST ONE VIEW STAT 11/22/2020 10:08 AM Res ults for this EDT procedure are i n the results section. documented in this encounter Results (ABNORMAL) XR Chest One View (11/22/2020 10:08 AM EDT) P athologist Signature PT CLASS I RAD ADMITDTTM RAD PT RAD INFO [id number]^V RAD IPULANANDA^N IMALAN EXAM DESC XCXR1^XR RAD CHEST 1 VIEW^RIS Anatomical Region Laterality Modality Chest N/A Radiographic Imaging Specimen (Source) Anatomical Location Collection Method / Collectio n Time Received Time / Laterality Volume Impressions 11/22/2020 10:25 AM EDT Pulmonary vascular congestion. No overt edema and no obvious effusion. Width of the mediastinum may be accentua han by supine positioning and AP technique, however, follow-up PA and lat eral chest radiograph or follow-up chest CT is needed to exclude vascular or duke l mediastinal pathology. UNEXPECTED FINDING. Thank you for letting us participate in the care of this patient. ??If you are a health care provider and have any questi ons regarding this report, please contact the number below. ??For patients who have questions please contact the health critical care educator that requested your imaging first. ? Narrative 11/22/2020 10:25 AM EDT EXAMINATION: XR CHEST 1 VIEW CLINICAL HISTORY: AMS - nonurgent. AM is okay TECHNIQUE: AP portable supine chest radiograph COMPARISON: None FINDINGS: Rotated positioning of the patient. Mild prominence of the central pulmonary vessels. No overt edema. No pleural effu zelda. Normal size of the heart. Width of the upper mediastinum appears prominent. Osseous structures are within normal limits. Resulting Agency Comment Unexpected Finding Procedure Note Rosi Alas MD - 2020 EXAMINATION: XR CHEST 1 VIEW CLINICAL HISTORY: AMS - nonurgent. AM is okay TECHNIQUE: AP portable supine chest radiograph COMPARISON: None FINDINGS: Rotated positioning of the patient. Mild prominence of the central pulmonary vessels. No overt edema. No pleural effu zelda. Normal size of the heart. Width of the upper mediastinum appears prominent. Osseous structures are within normal limits. IMPRESSION Pulmonary vascular congestion. No overt edema and no obvious effusion. Width of the mediastinum may be accentua han by supine positioning and AP technique, however, follow-up PA and lat eral chest radiograph or follow-up chest CT is needed to exclude vascular or duke l mediastinal pathology. UNEXPECTED FINDING. Thank you for letting us participate in the care of this patient. If you are a health care provider and have any questi ons regarding this report, please contact the number below. For patients w ho have questions please contact the health critical care educator that requested your imaging first. Sagrario Garay MD IMG DX ORDERABLES documented in this encounter Visit Diagnoses Not on filedocumented in this encounter Care Teams Iv Therapy Nurse Relationship Specialty Start Date End Date Jose Eduardo Barboza MD PCP - General Family Medicine 02/09/[address] [place] [address] documented as of this encounter
--- OUTSIDE RECORDS SUMMARY | 2021-11-29 19:37 | XMS_ITS | Encounter Summary ---
:1950 Author Organization [facility] [place] [address] Care Team Providers Name Role Phone Jose Eduardo Barboza MD Primary Care Provider [phone] Encounter Details Date Type Department Care Team Description 09/13/2021 Interpretation Only [facility] Sascha Lopez, INDUSTRIAL PHARMACIST [address] [place] [id number] [phone] (Wo rk) Social History Tobacco Use Types Packs/Day Years Used Date Never Assessed Sex Assigned at Date Recorded Not on file documented as of this encounter Plan of Treatment Not on filedocumented as of this encounter Procedures Procedure Name Priority Date/Time Associated Diagnosis Comme nts XR CHEST ONE VIEW STAT 09/13/2021 1:17 PM Resu lts for this EDT procedure are i n the results section. documented in this encounter Results XR Chest One View (09/13/2021 1:17 PM EDT) P athologist Signature PT CLASS I RAD ADMITDTTM RAD PT ANTONY GAFFNEY MD INFO [id number]^C RAD OTE^SASCHA^ Lesa EXAM DESC XCXR1^XR RAD CHEST 1 VIEW^RIS Anatomical Region Laterality Modality Chest N/A Radiographic Imaging Specimen (Source) Anatomical Location Collection Method / Collectio n Time Received Time / Laterality Volume Impressions 09/13/2021 1:23 PM EDT No acute cardiopulmonary disease. Thank you for letting us participate in the care of this patient. ??If you are a health care provider and have any questi ons regarding this report, please contact the number below. ??For patients who have questions please contact the health complex care nurse that requested your imaging first. ? Narrative 09/13/2021 1:23 PM EDT EXAMINATION: XR CHEST 1 VIEW CLINICAL HISTORY: non urgent TECHNIQUE: Chest AP COMPARISON: November 22, 2020 FINDINGS: Evaluation of the upper lungs is limited by superimposition of the head. The visualized lungs are clear. The hear t size is normal. Both costophrenic angles are sharp. No pneumothorax is see n. No acute osseous pathology is present. Pulmonary vascular congestion noted in t he prior examination has resolved. Procedure Note Marc Mazariegos MD - 09/13/2021 EXAMINATION: XR CHEST 1 VIEW CLINICAL HISTORY: non urgent TECHNIQUE: Chest AP COMPARISON: November 22, 2020 FINDINGS: Evaluation of the upper lungs is limited by superimposition of the head. The visualized lungs are clear. The hear t size is normal. Both costophrenic angles are sharp. No pneumothorax is see n. No acute osseous pathology is present. Pulmonary vascular congestion noted in t he prior examination has resolved. IMPRESSION No acute cardiopulmonary disease. Thank you for letting us participate in the care of this patient. If you are a health care provider and have any questi ons regarding this report, please contact the number below. For patients w ho have questions please contact the health complex care nurse that requested your imaging first. Sascha Lopez APRN IMG DX ORDERABLES documented in this encounter Visit Diagnoses Not on filedocumented in this encounter Care Teams Physical Therapy Instructor Relationship Specialty Start Date End Date Jose Eduardo Barboza MD PCP - General Family Medicine 02/09/[address] [place] [address] documented as of this encounter
--- OUTSIDE RECORDS SUMMARY | 2021-11-29 19:37 | XMS_ITS | Clinical Summary ---
:1950 Author Organization [facility] [place] [address] Care Team Providers Name Role Phone Jose Eduardo Barboza MD Primary Care Provider [phone] Allergies No known active allergies Medications Medication Sig Dispensed Refills Start Date End Date Status CIS Free Text Med - 60MG = 1 0 05/28/2006 Active Inderal Tablet(s), PO, Once daily divalproex (DEPAKOTE 1750MG = 3.5 0 05/28/2006 Active ER) 500 mg 24 hr tablet Tablet(s), PO, QHS lithium 300 mg tablet 300M TABS IN 0 05/28/2006 Active AM AND 3 TABS IN PM, PO, Twice daily lamoTRIgine (LAMICTAL) 150MG = 1 0 05/28/2006 Active 150 mg tablet Tablet(s), PO, QAM Encounters Date Type Specialty Care Team Description 11/11/2021 Interpretation Only Brad Whalen Jr., DO 09/14/2021 Hospital Encounter Lab 09/13/2021 Interpretation Only Sascha Lopez APRN from Last 3 Months Social History Tobacco Use Types Packs/Day Years Used Date Never Assessed Sex Assigned at Date Recorded Not on file Plan of Treatment Health Maintenance Due Date Last Done Comments Covid-19 Vaccine (#1) 11/13/1956 Hepatitis C Screening 11/13/1969 Lipid Screening 11/13/1969 Tdap adult 11/13/1970 Tetanus vaccine 11/13/1970 Colonoscopy 11/13/1996 Zoster vaccine (1 of 2) 11/13/2001 Advance Directive 11/13/2006 Pneumoccocal Vaccine: 65+ (1 - PCV) 11/13/2016 Influenza (Flu) vaccine (1 of 1 - Influenza standard 12/04/2021 series) Procedures Procedure Name Priority Date/Time Associated Comments Diagnosis CT HEAD WO CONTRAST STAT 11/11/2021 8:29 PM Re sults for this (GENERIC) EDT procedure are i n the results section. SMEAR REVIEW REPORT Routine 09/15/2021 8:04 AM Re sults for this EDT procedure are i n the results section. PERIPHERAL SMEAR Routine 09/14/2021 8:04 AM Resul ts for this REVIEW EDT procedure are i n the results section. XR CHEST ONE VIEW STAT 09/13/2021 1:17 PM Resu lts for this EDT procedure are i n the results section. from Last [address] Head wo Contrast (Generic) (11/11/2021 8:29 PM EDT) P athologist Signature PT CLASS E RAD ADMITDTTM RAD PT RAD INFO [id number]^B RAD ROWN^BRAD^ A EXAM DESC CTHEAD^CT RAD HEAD WO CNTRST^RIS Anatomical Region Laterality Modality Head Computed Tomography Specimen (Source) Anatomical Location Collection Method / Collectio n Time Received Time / Laterality Volume Impressions 11/11/2021 8:35 PM EDT No acute intracranial process. Thank you for letting us participate in the care of this patient. ??If you are a health care provider and have any questi ons regarding this report, please contact the number below. ??For patients who have questions please contact the health home care specialist that requested your imaging first. ? Narrative 11/11/2021 8:35 PM EDT EXAMINATION: CT HEAD WO CNTRST CLINICAL HISTORY: AMS TECHNIQUE: CT head performed without intravenous co ntrast administration. COMPARISON: None FINDINGS: No acute intracranial hemorrhage, extra- axial fluid collection, mass or mass effect. Moderate proportionate enlargeme nt of the ventricles, sulci and cisterns most suggestive of age-related cerebral and cerebellar volume loss. No loss of the oliver-white matter interfaces. The ca lvarium is unremarkable. The mastoid air cells and visualized paranasal sinuses a re clear. Procedure Note Kevin Gramajo MD - 11/11/2021Format ting of this note might be different from the original. EXAMINATION: CT HEAD WO CNTRST CLINICAL HISTORY: AMS TECHNIQUE: CT head performed without intravenous co ntrast administration. COMPARISON: None FINDINGS: No acute intracranial hemorrhage, extra- axial fluid collection, mass or mass effect. Moderate proportionate enlargeme nt of the ventricles, sulci and cisterns most suggestive of age-related cerebral and cerebellar volume loss. No loss of the oliver-white matter interfaces. The ca lvarium is unremarkable. The mastoid air cells and visualized paranasal sinuses a re clear. IMPRESSION No acute intracranial process. Thank you for letting us participate in the care of this patient. If you are a health care provider and have any questi ons regarding this report, please contact the number below. For patients w ho have questions please contact the health home care specialist that requested your imaging first. Brad Whalen Jr., DO [facility] ORDERABLES Smear Review Report (09/15/2021 8:04 AM EDT) Component Value Ref Test Analysis Performed At [facility] Method Time Signature Smear Review [id number] ? Location: [facility] The signing pathologist has (i) examined the relevant preparation(s) for the [facility] specimen(s) and (ii) rendered or confirmed the diagnosis(es) . HOSPITAL [facility] . ? ear Review DIAGNOSIS PERIPHERAL BLOOD, SMEAR: ?? 1. ??Erythrocytosis (see discussion) ?? 2. ??Mild absolute neutrophilia and monocytosis Electronically signed by: ?Jeff Cook MD Verified: ??09/16/2021 9:17 ?? Hematopathologist Performed at: ??-[facility] Dept. of Pathology, [place], [place] DISCUSSION The morphologic findings are nonspecific. ?The leukocytosis is favored to be reactive. Secondary polycythemias can be identified by serum EPO level elevation, and are typically related to variou s causes of hypoxia (e.g., lung disease, smoking, sleep apnea, etc). Less commonly, secondary polycythemias may be due to autonomous EPO production via a paraneopla stic syndrome, or other miscellaneous causes. If the finding is persistent and o therwise unexplained, genetic evaluation for ? JAK2 gene mutations may be warranted to exclude a myeloproliferative neoplasm. ADDITIONAL STUDIES WBC 13.0K/uL, RBC 6.0M/uL, HGB 18.2g/dL, MCV 90.8fL, RDW 1 3.8%, PLT 263K/uL There is an erythrocytosis with normochromic normocytic red- cells. Anisopoikilocytosis and renea ychromasia are not increased. The total leukocyte count is increased due to a mild increase of neutrophils (9.25 ?K/uL) and monocytes (1.06 K/uL). Other leukocyte-subs et counts are within reference limits. The neutrophils are mostly mature and witho ut significant left-shift. Remaining leukocyte morphology is generally unremarkable. The platelet counts and morpholo gy are normal. CLINICAL INFORMATION A 70 year old man for whom s mear review was requested for unspecified indication. No recent clinical context was provided or found in the EMR . Specimen (Source) Anatomical Collection Method Collection Time Re ceived Time Location / / Volume Laterality 09/15/2021 8:04 AM EDT Sascha Lopez APRN PATHOLOGY/CYTOLOGY ORDERABLE S Performing Organization Address City/State/[place] [address] Peripheral Smear Review (09/14/2021 8:04 AM EDT) [facility] gist Method Time Signature Periph Smear See Comment [facility] LABORATORY Comment: When completed by the Pathologist, joanna vaughn [id number] will display under Hematopathology Reports. Specimen Anatomical Collection Method Collection Time Receive d Time (Source) Location / / Volume Laterality Blood Venous Draw / 09/14/2021 8:04 AM 09/16/19 9:12 Unknown EDT PM EDT Resulting Agency Comment Spec In Lab Sascha Lopez HELPER ELECTRICAL HEMATOLOGY ORDERABLES Performing Organization Address City/State/[place] [address] XR Chest One View (09/13/2021 1:17 PM EDT) P athologist Signature PT CLASS I RAD ADMITDTTM RAD PT RAD INFO [id number]^C RAD OTE^SASCHA^ Lesa EXAM DESC XCXR1^XR RAD [...] who have questions please contact the health home care specialist that requested your imaging first. ? Narrative [...] ho have questions please contact the health home care specialist that requested your imaging first. Electronically signed by: Dayron Bardales, [facility] ([phone]), at 09/13/2021 1:23 PM Sascha Lopez APRN IMG DX ORDERABLES from Last 3 Months Insurance Payer Benefit Plan / Subscriber ID Effective Dates Phone Addre ss Type Group MANAGED MEDICARE [id number] 2021-Present [address] [address] MEDICARE MANAGED [place] [id number] Care Teams Animator Relationship Specialty Start Date End Date Jose Eduardo Barboza MD PCP - General Family Medicine 02/09/[address] [place], [place] [id number]
--- OUTSIDE RECORDS SUMMARY | 2021-11-29 19:37 | XMS_ITS | Encounter Summary ---
:1950 Author Organization [facility] Address [address] [place] [address] Care Team Providers Name Role Phone Unavailable Primary Care Provider Unavailable Encounter Details Date Type Department Care Team Description 06/18/2008 Hospital Encounter [facility] Dayron Coelho MD Other [address] [place] [id number] (Wo rk) Social History Tobacco Use Types Packs/Day Years Used Date Never Assessed Sex Assigned at Date Recorded Not on file documented as of this encounter Discharge Disposition Disposition Code Departure Means Destination Home or Self Care documented in this encounter Plan of Treatment Not on filedocumented as of this encounter Procedures Procedure Name Priority Date/Time Associated Diagnosis Comme [facility] SURGICAL PATHOLOGY Routine 06/18/2008 0:00 EDT Re sults for this procedure are i n the results section. documented in this encounter Results SURGICAL PATHOLOGY (06/18/2008 0:00 EDT) Pathology Report: SURGICAL PATHOLOGY REPORT ? [facility] Reports generated via [employer] interface contain original data; ? LAB however they are lacking the format of the original report. ? Caution should be taken when reading/interpreting unformatted reports. ? Name: ? SHEPHERD, CASSIE E M JR ? Accession #: ? [id number] ? : ? 1950 (Age: 57) ??M ? Collec t Date: ? 06/18/2008 ? Location: ? [facility] ? R eceive Date: ? 06/18/2008 ? Provider: MARIUSZ WALKO MD ? Copy to: KRISHNA TEJEDA MD ? Final Pathologic Diagnosis: ? Colon, cecum, polyp, biopsy: ? 1. ?Hyperplasti c polyp. ? 2. ? No adenomatous muco sa identified. ? Document reviewed and electr onically signed by: ? Flynn Auguste, MD ? Report ??Date: 06/20/2008 15 :08 ? By the signature above, the attending physician certifies that he/she has ? personally conducted a gross and/or microscopic examination of the described ? specimens and rendered or co nfirmed the above diagnosis. ? Specimen(s) Received: ? Cecal polyp ? Clinical History: ? Colorectal screening ? Gross Description: ? Received in Hollande' s fixative labelled Shepherd and cecal polyp is a ga-pink 0.3 x 0.3 x 0.3 cm soft tissue fragment. ??The specimen is entirely ? submitted in one cassette. ? ?(Abdirashid Alcala)/tmg ? End of Report ? Specimen Performing Organization Address City/State/ZIP Code Phon e Number [facility] [address] [place] [address] SERVICES [facility] [address] [place] [address] documented in this encounter Visit Diagnoses Not on filedocumented in this encounter
--- OUTSIDE RECORDS SUMMARY | 2021-11-29 19:37 | XMS_ITS | Encounter Summary ---
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 normal Neck: supple, symmetrical, trachea midline, no carotid bruit and no JVD Lymph nodes: Cervical, supraclavicular, and axillary nodes normal. Lungs: clear to auscultation bilaterally, non labored breathing, normal percussion bilaterally Heart: regular rate and rhythm, S1, S2 normal, no murmur, click, rub or gallop Abdomen: soft, non-tender; bowel sounds normal; no masses, no organomegaly Back: symmetric, no curvature. ROM normal. No CVA tenderness. Neurologic: Grossly normal Chest wall: no tenderness Extremities: extremities warm, atraumatic, no cyanosis or edema positive pulses bilat Pulses: 2+ and symmetric Skin: Rosea on face and chest. Bug bites on forearms AIMS: Muscles of Facial Expression: None, normal Lips and Perioral Area: None, normal Jaw: None, normal Tongue: None, normal Lower (legs, knees, ankles, toes): None, normal Neck, shoulders, hips: None, normal Severity of abnormal movement: None, normal Incapacitation due to abnormal movements: None, normal Patient's awareness of abnormal movements (rate only patient's report): No Awareness Current problems with teeth and/or dentures?: No Does patient usually wear dentures?: No Mental Status Evaluation: Orientation: person, place, time/date, situation, day of week, month of year and year Attention: intact Concentration:intact Appearance: appropriate, disheveled and man of average but solid build with short oliver hair, wearing a shirt and shorts. Behavior: Cooperative and Good eye contact Speech: Normal rate and tone, Pressured and Rapid Psychomotor activity: Normal Musculoskeletal: Steady Gait:steady Capacity for Activities of Daily Living:adequate Mood: Great Affect: congruent with mood, full range, labile and Became tearful with gratitude Thought Process: goal directed, tangential and circumstantial Thought Content: Hyperreligious Perceptual Disturbances: no hallucinations and No delusions Impulses: No suicidal ideation and Poor impulse control - Touched one of the nurses on her shoulder,but responded to redirection Insight: good Judgment: fair Language: normal 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 Shepherd is a 59-year old man with a past psychiatric history of bipolar disorder hanna past psychiatric hospitalization at [facility] in 1997 for aggressive behavior related to a manic episodewho was referred for admission to [facility] from [facility] after experiencing worsening manic symptoms over the past several weeks. Based on history the patient has had decreased sleep for several weeks and increasing symptoms of hyperreligiosity, hypersexuality and aggressiveness. A number of these symptoms were corroborated by the Mental Status Exam. Based on Past psychiatric history, HPI and the MSE, the patient appears to be in the midst of a manic episode due to Bipolar I Disorder. He has pressure speech and at times he gazes intensely. He does have good insight into his condition and does not appear to be psychotic at this time. Of note the patient has been taking reduced dose of his medications over the past few weeks. At this time it is prudent to hospitalize this patient for safety and stabilization and to resume his home medications at the higher doses - wherethe patient was stable a few weeks ago. He states that he is very eager to work with the treatment team and to follow their recommendations. The patient denies SI or HI. Multiaxial Diagnostic Impression Lovejoy I: Bipolar I Disorder, Most recent episode Manic - Moderate Lovejoy II: Deferred Lovejoy III: Rosacea on face and chest Lovejoy IV: Occupational problems and Other psychosocial or environmental problems Lovejoy V: 11-20 some danger of hurting self or others possible OR occasionally fails to maintain minimal personal hygiene OR gross impairment in communication SUICIDE RISK ASSESSMENT: Modifiable Risk Factors: Vulnerability to painful affective states Non-modifiable risk factors: Older than 55 years old;;Mood disorder Protective factors: Children in home;Sense of responsibility to family & social supports/connections;Satisfaction with life;Restorationism prohibition;Outpatient care in place;Capacity to establish therapeutic alliance;Willingness to comply with treatment plan;Capacity to realistically appraise one's self & one's life circumstances Overall Acute Risk Rating: high Overall Chronic Risk Rating: moderate Plan: Bipolar I Disorder - Manic Episode 1. Admit voluntarily to [place] [address], level 4, frequent observation 2. Check routine labs 3. Initiate/Resume medications - Nunica 300mg AM and 600mg QHS - Lamotrigine 150mg QD - Divalproex ER 1000mg QD - Propranolol 60mg QD - Quetiapine 100mg QHS - Quetiapine 50mg QD PRN - Risperidone 1mg QID PRN - Lorazepam 1mg Q4hrs PRN 4. Obtain collateral history from family members and outpatient providers 5. Work at establishing therapeutic alliance and diagnostic clarification 6. Encourage participation in therapeutic milieu Acuity / Indications for admission: This patient requires active treatment in the Inpatient Psychiatric Unit because of the following: Acute disordered/bizarre behavior, or psychomotor agitation or retardation, that interferes with Activities of Daily so that the patient cannot function at a less intensive level of care during evaluation and treatment. Mental disorder causing major disability in social, interpersonal, occupational, and/or educational functioning that is leading to dangerous or life-threatening functioning and that can only be addressed in an acute inpatient setting. PLAN TO RESTRICT ACCESS TO FIREARMS (outpatient setting): Access to firearms? no Case, Assessment and Plan Discussed with Psychiatry Attending, MD Ethan Earl Sanchit, MD 08/30/2010 0:04 Attending attestation (Late Entry): I examined the patient on 08/29/10 with the resident, and discussed the patient's case and treatment with the resident. I have reviewedand agree with the admitting resident's findings and plan of care as documented in the admission database. I have reviewed the nursing database. The initial treatment plan was discussed with available treatment team members in the evening of 08/29/10. Imelda Zhou MD, MD Attending Psychiatrist Pager [phone] documented in this encounter Miscellaneous Notes Plan of Care - Eliud Lennon - 09/09/2010 1507 EDT Problem: SENSORY PERCEPTUAL ALTERATION - auditory/visual hallucinations - posturing - restlessness - pacing - increasing agitation - aggression Goal: Patient/Family Participate In Treatment And DC Plans Active Multi-Disciplinary problems: SENSORY PERCEPTUAL ALTERATION [738081] (09/01/10) Data: Pt in dining room at 0800. A&O x 4. Denies SI, HI, SH. Denies pain. Affect/mood calm I'm in control. Stated i'm feeling low and less energized. States he accepts the limitations of his probable d/c as discussed at family meeting yesterday. Action: 1:1 provided, medication administered, continues on level III routine observation. Response: Pt discussed plans for how he intends to spend time after d/c. Ate breakfast in dining room. Sat on porch. Took a mid-morning nap. Ate lunch in dining room. Discharged to home with son at 1500. ELIUD LENNON RN 09/09/2010 15:00 lan of [facility] - Jessica Shah RN - 09/08/2010 0672 EDT Problem: ANXIETY Goal: Anxiety Is At Manageable Level Outcome: Ongoing Pt. in room at start of shift meeting with Medical student. She denied pain, SI, HI. Affect restricted. Continues to c/o restless lower legs and some ambivalence toward current medication regime. Action: Frequent safety monitoring maintained. Assessed SI, HI, pain. Administered medication. Offered supportive nursing interactions. Provided pt. education on medications. Response: Pt. spent most of shift in milieu, social and working on puzzle with peers. Pt. is pleasant and appropriat during interactions. No delusional content expressed. Pt. took all scheduled medications. Pt was encouraged to continue medication management discussion with team. Provided pt. Written information on Seroquel. Pt. remained safe on unit. Reading in bed at end of shift. lan of [facility] - Eliud Lennon - 09/08/2010 1504 EDT Problem: ALTERED THOUGHT PROCESSES Goal: Desires Improvement In Ability To Think & Concentrate Active Multi-Disciplinary problems: INEFFECTIVE COPING [[id number]] (08/29/10) SENSORY PERCEPTUAL ALTERATION [968371] (09/01/10) ALTERED THOUGHT PROCESSES [070790] (09/01/10) ALTERATION IN SLEEP [884741] (09/01/10) POTENTIAL FOR HARM TO SELF OR OTHERS [173363] (09/02/10) DEFENSIVE COPING [393884] (09/06/10) ANXIETY [897979] (09/07/10) Data: Pt eating breakfast in dining room at 0800. A&O x 4. Denies SI, HI, SH. I'm feeling peaceful and less energized today. Denies pain. Reports having vivid, non-disruptive, non-disturbing dreams. Expressed some mild to moderate anxiety re: family meeting today. Asked who his social and political studies professor is.Concerned about what questions he might be asked and what the right responses are. Action: 1:1 support provided. Confirmed social and political studies professor and meeting time for pt. Medication administered. Prn offered for anxiety. Continues on level III routine observation. Response: Accepted all scheduled medication, declined prn. Lunch in dining room. Attending family meeting at this time. ELIUD LENNON RN 09/08/2010 14:56 lan of [facility] - Nyla Carrasquillo RN - 09/08/2010 0563 EDT Problem: ALTERATION IN SLEEP Goal: FA RESTS/SLEEPS 6-8 HOURS PER DAY Outcome: Met This Shift Active Multi-Disciplinary problems: INEFFECTIVE COPING [[id number]] (08/29/10) SENSORY PERCEPTUAL ALTERATION [632058] (09/01/10) ALTERED THOUGHT PROCESSES [425520] (09/01/10) ALTERATION IN SLEEP [831373] (09/01/10) POTENTIAL FOR HARM TO SELF OR OTHERS [565579] (09/02/10) DEFENSIVE COPING [539133] (09/06/10) ANXIETY [703257] (09/07/10) Data: Pt was noted to be awake briefly x1 overnoc. No complaints/needs voiced. Action: Monitored for safety on a routine basis throughout the noc. Response: Pt remained safe on the unit; continue to monitor. Nyla Carrasquillo RN 09/08/2010 5:53 lan of [facility] - Wallace Arndt RN - 09/07/2010 8877 EDT Problem: DEFENSIVE COPING Goal: Demonstrates Appropriate Social Interactions Outcome: Ongoing Active Multi-Disciplinary problems: INEFFECTIVE COPING [521036] (08/29/10) SENSORY PERCEPTUAL ALTERATION [208610] (09/01/10) ALTERED THOUGHT PROCESSES [506357] (09/01/10) ALTERATION IN SLEEP [312478] (09/01/10) POTENTIAL FOR HARM TO SELF OR OTHERS [475619] (09/02/10) DEFENSIVE COPING [131837] (09/06/10) ANXIETY [414625] (09/07/10) Data: Locus of harm level 3. No SI/HI. Nunica level 0.7. Full affect. States his mood is elevated but not manic. TSH in process. Some anxiety reported about wanting to leave and his family meeting tomorrow. Patient stated his 4 hour pass with his went very well which relieved some anxiety about the meeting tomorrow. Social in the TV room and then spent much of the evening on the porch. Patient requested to shave. Action: Monitored for safety. Routine observation. One to one offered. Constant observation while shaving. Education about effects of Risperdal. Response: Patient remains safe. Ate dinner in the TV room. Continues to be social with other patients. Sleeping by 2200. Wallace Arndt RN 09/07/2010 22:13 lan of [facility] - Flores Ontiveros RN - 09/07/2010 1142 EDT Problem: ANXIETY Goal: Anxiety Is At Manageable Level Outcome: Ongoing Active Multi-Disciplinary problems: INEFFECTIVE COPING [401930] (08/29/10) SENSORY PERCEPTUAL ALTERATION [919672] (09/01/10) ALTERED THOUGHT PROCESSES [998212] (09/01/10) ALTERATION IN SLEEP [517941] (09/01/10) POTENTIAL FOR HARM TO SELF OR OTHERS [993008] (09/02/10) DEFENSIVE COPING [680805] (09/06/10) ANXIETY [422218] (09/07/10) Data: Patient expressed anxiety over his pass today. He was able to verbalize positive strategies for dealing with his anxiety. He expressed anxiety about his upcoming Family Meeting and discharge on Wednesday. He stated that if the pass went well today that will be an indication that the family meeting and the upcoming discharge would go well also. Action: We discussed ways of managing anxiety while out on the pass with patient and his . He was seen by Dr. Low before he left for the pass. Patient felt comfortable going out on the pass. Response: Nurse will evaluate patient when he returns from pass.Patient has a four hour pass. He left at 11:15 hrs. Patient had Lthium Level drawn today. Nunica level is 0.7 Patient returned from passat 1500 hrs. He and his both stated that the pass went very well. They spent time walking around enjoying the out doors. Flores Ontiveros RN 09/07/2010 11:28 lan of [facility] - Tahir Seymour - 09/07/2010 0626 EDT Problem: ALTERATION IN SLEEP Goal: Informs Staff If Unable To Sleep Outcome: Ongoing Active Multi-Disciplinary problems: INEFFECTIVE COPING [891629] (08/29/10) SENSORY PERCEPTUAL ALTERATION [914436] (09/01/10) ALTERED THOUGHT PROCESSES [313542] (09/01/10) ALTERATION IN SLEEP [506473] (09/01/10) POTENTIAL FOR HARM TO SELF OR OTHERS [19471005] (09/02/10) DEFENSIVE COPING [19641006] (09/06/10) Data: Pt asleep at start of shift. Awake x 2 for brief times. Action: Monitored for safety. Response: Slept approximately 7 hours on resource specialist. TAHIR SEYMOUR RN 09/07/2010 6:24 lan of [facility] - Wallace Arndt RN - 09/06/2010 2240 EDT Problem: DEFENSIVE COPING Goal: Demonstrates Appropriate Social Interactions Outcome: Ongoing Active Multi-Disciplinary problems: INEFFECTIVE COPING [761391] (08/29/10) SENSORY PERCEPTUAL ALTERATION [686106] (09/01/10) ALTERED THOUGHT PROCESSES [150974] (09/01/10) ALTERATION IN SLEEP [642201] (09/01/10) POTENTIAL FOR HARM TO SELF OR OTHERS [19471005] (09/02/10) DEFENSIVE COPING [19641006] (09/06/10) Data: Locus of harm level 3. No SI/HI. Full affect. Increased energy. No grandiose comments made. Noinappropriate behavior. Mood WDL. Social with other patients. On computer during beginning of games group. Attended the end of games group. 4 hour pass ordered for tomorrow. Nunica level ordered for tomorrow at 0600. No pain. Patient states he would like to leave on Wednesday. Action: Monitored for safety. Routine observation. One to one offered. Group encouraged. Observed behavior. Response: Patient remains safe on the unit. Patient has some anxiety about meeting with family on Wednesday. Ate dinner in dining room. Out on porch and later in TV room socializing. No inappropriate behavior. Wallace Arndt RN 09/06/2010 22:29 lan of [facility] Flores Ontiveros RN - 09/06/2010 1154 EDT Problem: ALTERED THOUGHT PROCESSES Goal: Desires Improvement In Ability To Think & Concentrate Outcome: Met This Shift Active Multi-Disciplinary problems: INEFFECTIVE COPING [729548] (08/29/10) SENSORY PERCEPTUAL ALTERATION [224517] (09/01/10) ALTERED THOUGHT PROCESSES [307227] (09/01/10) ALTERATION IN SLEEP [506256] (09/01/10) POTENTIAL FOR HARM TO SELF OR OTHERS [012439] (09/02/10) Data: Patient has been very pleasant and smiling frequently today. He denies feeling depressed or suicidal. He is not hearing voices. Action: Patient provided with education on hussain and depression and medication compliance. He was supervised with shaving. He has a four hour pass on Wednesday and a family team meeting on Wednesday. Response: Encourage groups and activities and medication compliance. Support patient's endeavors in these areas. Flores Ontiveros RN 09/06/2010 11:47 lan of [facility] Tahir Nguyen - 09/06/2010 0610 EDT Problem: ALTERATION IN SLEEP Goal: Informs Staff If Unable To Sleep Outcome: Ongoing Active Multi-Disciplinary problems: INEFFECTIVE COPING [510546] (08/29/10) SENSORY PERCEPTUAL ALTERATION [602863] (09/01/10) ALTERED THOUGHT PROCESSES [775463] (09/01/10) ALTERATION IN SLEEP [590237] (09/01/10) POTENTIAL FOR HARM TO SELF OR OTHERS [222428] (09/02/10) Data: Pt asleep at start of shift. Appeared to sleep well with two brief observable awakenings. Action: Monitored for safety. Response: Pt slept approximately 7.5 hours on resource specialist. TAHIR SEYMOUR RN 09/06/2010 6:09 lan of [facility] - Zeynep Giron RN - 09/05/2010 1872 EDT Problem: INEFFECTIVE COPING Goal: Participates In Unit Activities Outcome: Met This Shift Active Multi-Disciplinary problems: INEFFECTIVE COPING [898517] (08/29/10) SENSORY PERCEPTUAL ALTERATION [814653] (09/01/10) ALTERED THOUGHT PROCESSES [248794] (09/01/10) ALTERATION IN SLEEP [874711] (09/01/10) POTENTIAL FOR HARM TO SELF OR OTHERS [647430] (09/02/10) Data: Pt slightly intrusive physically at start of evening as pt wanted to shake hands and had somewhat of a piercing stare but otherwise was appropriate and attended recovery group and really enjoyed participating in that and then spent time after the formal group was over to talk with the other patients and they made really good use of the time continuing to talk about recovery issues. Denies SI/HI. No C/O pain. Good appetite. Action: Encourage groups. Monitor for Safety. Offer medications as ordered. Encourage patient to utilize positive coping techniques. Continue to assess mood, affect, pain. Offer 1:1 support as needed. Response: Has had a good evening. Really enjoyed the recovery group. No complaints. eZynep Giron RN 09/05/2010 22:32 Problem: SENSORY PERCEPTUAL ALTERATION - auditory/visual hallucinations - posturing - restlessness - pacing - increasing agitation - aggression Goal: Participates In Unit Activities Outcome: Met This Shift Active Multi-Disciplinary problems: INEFFECTIVE COPING [807333] (08/29/10) SENSORY PERCEPTUAL ALTERATION [609298] (09/01/10) ALTERED THOUGHT PROCESSES [114958] (09/01/10) ALTERATION IN SLEEP [222637] (09/01/10) POTENTIAL FOR HARM TO SELF OR OTHERS [216529] (09/02/10) Data: Pt slightly intrusive physically at start of evening as pt wanted to shake hands and had somewhat of a piercing stare but otherwise was appropriate and attended recovery group and really enjoyed participating in that and then spent time after the formal group was over to talk with the other patients and they made really good use of the time continuing to talk about recovery issues. Denies SI/HI. No C/O pain. Good appetite. Action: Encourage groups. Monitor for Safety. Offer medications as ordered. Encourage patient to utilize positive coping techniques. Continue to assess mood, affect, pain. Offer 1:1 support as needed. Response: Has had a good evening. Really enjoyed the recovery group. No complaints. Zeynep Giron RN 09/05/2010 22:32 Problem: POTENTIAL FOR HARM TO SELF OR OTHERS Goal: Participates In Unit Activities Outcome: Met This Shift Active Multi-Disciplinary problems: INEFFECTIVE COPING [733050] (08/29/10) SENSORY PERCEPTUAL ALTERATION [160877] (09/01/10) ALTERED THOUGHT PROCESSES [015903] (09/01/10) ALTERATION IN SLEEP [499858] (09/01/10) POTENTIAL FOR HARM TO SELF OR OTHERS [516182] (09/02/10) Data: Pt slightly intrusive physically at start of evening as pt wanted to shake hands and had somewhat of a piercing stare but otherwise was appropriate and attended recovery group and really enjoyed participating in that and then spent time after the formal group was over to talk with the other patients and they made really good use of the time continuing to talk about recovery issues. Denies SI/HI. No C/O pain. Good appetite. Action: Encourage groups. Monitor for Safety. Offer medications as ordered. Encourage patient to utilize positive coping techniques. Continue to assess mood, affect, pain. Offer 1:1 support as needed. Response: Has had a good evening. Really enjoyed the recovery group. No complaints. Zeynep Giron RN 09/05/2010 22:32 lan [facility] - Mian Jones RN - 09/05/2010 1426 EDT Problem: INEFFECTIVE COPING Goal: Participates In Unit Activities Outcome: Ongoing Active Multi-Disciplinary problems: INEFFECTIVE COPING [912455] (08/29/10) Data: Pt reports doing well today denies any racing thought, but notes that his thoughts are focus on his discharge plan. Pt states that his is available on Wednesday and requested that we make the Dr Zhou aware so that he may go out on pass on Wednesday. Mood: cooperative and happy about pass and discharge plans . Patient participating in activities with no inappropriate behavior noted. Patient states that he needs to continue to manage some of his intrusive impulses and currently has better control. Action: Offer 1:1 support. Encouraged group therapy. Monitor for safety in the environment of care. Offer medications as prescribed. Response: Safety maintained, participated in group, responsive to 1:1 support. Patient behavior appropriate. Medication compliant. No SI or SH thoughts. Mian Jones RN 09/05/2010 14:26 Problem: SENSORY PERCEPTUAL ALTERATION - auditory/visual hallucinations - posturing - restlessness - pacing - increasing agitation - aggression Goal: Participates In Unit Activities Outcome: Ongoing Active Multi-Disciplinary problems: INEFFECTIVE COPING [621827] (08/29/10) Data: When asked how he was doing he states If I was any better I would be scary . Pt denies any racing thought, but acknowledges that he has in the past. Mood slightly elevated. Patient participating in activities with no inappropriate behavior noted. Patient states that he needs to continue to manage some of his intrusive impulses. Action: Offer 1:1 support. Encouraged group therapy. Monitor for safety in the environment of care. Offer medications as prescribed. Response: Safety maintained, participated in group, responsive to 1:1 support. Patient behavior appropriate. Medication compliant. No SI or SH thoughts. Mian Jones RN 09/05/2010 14:26 Problem: POTENTIAL FOR HARM TO SELF OR OTHERS Goal: Participates In Unit Activities Outcome: Ongoing Active Multi-Disciplinary problems: INEFFECTIVE COPING [662738] (08/29/10) Data: When asked how he was doing he states If I was any better I would be scary . Pt denies any racing thought, but acknowledges that he has in the past. Mood slightly elevated. Patient participating in activities with no inappropriate behavior noted. Patient states that he needs to continue to manage some of his intrusive impulses. Action: Offer 1:1 support. Encouraged group therapy. Monitor for safety in the environment of care. Offer medications as prescribed. Response: Safety maintained, participated in group, responsive to 1:1 support. Patient behavior appropriate. Medication compliant. No SI or SH thoughts. Mian Jones RN 09/05/2010 14:26 lan of [facility] - Tahir Seymour - 09/05/2010 0626 EDT Problem: ALTERATION IN SLEEP Goal: Informs Staff If Unable To Sleep Outcome: Ongoing Active Multi-Disciplinary problems: INEFFECTIVE COPING [524966] (08/29/10) SENSORY PERCEPTUAL ALTERATION [248713] (09/01/10) ALTERED THOUGHT PROCESSES [[id number]] (09/01/10) ALTERATION IN SLEEP [[id number]] (09/01/10) POTENTIAL FOR HARM TO SELF OR OTHERS [[id number]] (09/02/10) Data: Pt asleep at start of shift. Appeared to sleep well with one brief awakening. Action: Monitored for safety. Response: Pt slept approximately 8 hours on resource specialist. TAHIR SEYMOUR RN 09/05/2010 6:25 lan of [facility] Zeynep Giron RN - 09/04/2010 2247 EDT Problem: INEFFECTIVE COPING Goal: Participates In Unit Activities Outcome: Met This Shift Active Multi-Disciplinary problems: INEFFECTIVE COPING [[id number]] (08/29/10) SENSORY PERCEPTUAL ALTERATION [601355] (09/01/10) ALTERED THOUGHT PROCESSES [484761] (09/01/10) ALTERATION IN SLEEP [[id number]] (09/01/10) POTENTIAL FOR HARM TO SELF OR OTHERS [[id number]] (09/02/10) Data: Pt up and out of his room and watches television, joins groups and is social with peers and staff. Has somewhat of a piercing stare at times and stands a little close when talking to staff at times but has been appropriate overall and has not touched staff in anyway. Pleasant. Denies pain. Denies SI/HI. Uses patient laptop and seems to enjoy that. Good appetite. Action: Encourage groups. Monitor for Safety. Offer medications as ordered. Encourage patient to utilize positive coping techniques. Continue to assess mood, affect, pain. Offer 1:1 support as needed. Response: Has had an uneventful evening and took all of his medications and appears comfortable. Zeynep Giron RN 09/04/2010 22:37 Problem: SENSORY PERCEPTUAL ALTERATION - auditory/visual hallucinations - posturing - restlessness - pacing - increasing agitation - aggression Goal: Participates In Unit Activities Outcome: Met This Shift Active Multi-Disciplinary problems: INEFFECTIVE COPING [[id number]] (08/29/10) SENSORY PERCEPTUAL ALTERATION [[id number]] (09/01/10) ALTERED THOUGHT PROCESSES [358621] (09/01/10) ALTERATION IN SLEEP [572056] (09/01/10) POTENTIAL FOR HARM TO SELF OR OTHERS [[id number]] (09/02/10) Data: Pt up and out of his room and watches television, joins groups and is social with peers and staff. Has somewhat of a piercing stare at times and stands a little close when talking to staff at times but has been appropriate overall and has not touched staff in anyway. Pleasant. Denies pain. Denies SI/HI. Uses patient laptop and seems to enjoy that. Good appetite. Action: Encourage groups. Monitor for Safety. Offer medications as ordered. Encourage patient to utilize positive coping techniques. Continue to assess mood, affect, pain. Offer 1:1 support as needed. Response: Has had an uneventful evening and took all of his medications and appears comfortable. Zeynep Giron RN 09/04/2010 22:37 Problem: POTENTIAL FOR HARM TO SELF OR OTHERS Goal: Participates In Unit Activities Outcome: Met This Shift Active Multi-Disciplinary problems: INEFFECTIVE COPING [[id number]] (08/29/10) SENSORY PERCEPTUAL ALTERATION [455162] (09/01/10) ALTERED THOUGHT PROCESSES [[id number]] (09/01/10) ALTERATION IN SLEEP [[id number]] (09/01/10) POTENTIAL FOR HARM TO SELF OR OTHERS [[id number]] (09/02/10) Data: Pt up and out of his room and watches television, joins groups and is social with peers and staff. Has somewhat of a piercing stare at times and stands a little close when talking to staff at times but has been appropriate overall and has not touched staff in anyway. Pleasant. Denies pain. Denies SI/HI. Uses patient laptop and seems to enjoy that. Good appetite. Action: Encourage groups. Monitor for Safety. Offer medications as ordered. Encourage patient to utilize positive coping techniques. Continue to assess mood, affect, pain. Offer 1:1 support as needed. Response: Has had an uneventful evening and took all of his medications and appears comfortable. Zeynep Giron RN 09/04/2010 22:37 lan of Care - Mian Jones RN - 09/04/2010 6573 EDT Problem: INEFFECTIVE COPING Goal: Participates In Unit Activities Outcome: Ongoing Active Multi-Disciplinary problems: INEFFECTIVE COPING [[id number]] (08/29/10) Data: When asked how he was doing he states If I was any better I would be scary . Pt denies any racing thought, but acknowledges that he has in the past. Mood slightly elevated. Patient participating in activities with no inappropriate behavior noted. Patient states that he needs to continue to manage some of his intrusive impulses. Action: Offer 1:1 support. Encouraged group therapy. Monitor for safety in the environment of care. Offer medications as prescribed. Response: Safety maintained, participated in group, responsive to 1:1 support. Patient behavior appropriate. Medication compliant. No SI or SH thoughts. Mian Jones RN 09/04/2010 14:24 Problem: SENSORY PERCEPTUAL ALTERATION - auditory/visual hallucinations - posturing - restlessness - pacing - increasing agitation - aggression Goal: Participates In Unit Activities Outcome: Ongoing Active Multi-Disciplinary problems: INEFFECTIVE COPING [[id number]] (08/29/10) Data: When asked how he was doing he states If I was any better I would be scary . Pt denies any racing thought, but acknowledges that he has in the past. Mood slightly elevated. Patient participating in activities with no inappropriate behavior noted. Patient states that he needs to continue to manage some of his intrusive impulses. Action: Offer 1:1 support. Encouraged group therapy. Monitor for safety in the environment of care. Offer medications as prescribed. Response: Safety maintained, participated in group, responsive to 1:1 support. Patient behavior appropriate. Medication compliant. No SI or SH thoughts. Mian Jones RN 09/04/2010 14:24 Problem: POTENTIAL FOR HARM TO SELF OR OTHERS Goal: Participates In Unit Activities Outcome: Ongoing Active Multi-Disciplinary problems: INEFFECTIVE COPING [[id number]] (08/29/10) Data: When asked how he was doing he states If I was any better I would be scary . Pt denies any racing thought, but acknowledges that he has in the past. Mood slightly elevated. Patient participating in activities with no inappropriate behavior noted. Patient states that he needs to continue to manage some of his intrusive impulses. Action: Offer 1:1 support. Encouraged group therapy. Monitor for safety in the environment of care. Offer medications as prescribed. Response: Safety maintained, participated in group, responsive to 1:1 support. Patient behavior appropriate. Medication compliant. No SI or SH thoughts. Mian Jones RN 09/04/2010 14:24 lan of [facility] - Tahir Seymour - 09/04/2010 0546 EDT Problem: ALTERATION IN SLEEP Goal: Informs Staff If Unable To Sleep Outcome: Ongoing Active Multi-Disciplinary problems: INEFFECTIVE COPING [[id number]] (08/29/10) SENSORY PERCEPTUAL ALTERATION [727268] (09/01/10) ALTERED THOUGHT PROCESSES [979072] (09/01/10) ALTERATION IN SLEEP [[id number]] (09/01/10) POTENTIAL FOR HARM TO SELF OR OTHERS [[id number]] (09/02/10) Data: Pt awake periodically through the night for brief periods. Action: Monitored for safety. Response: Pt slept approximately 6 hours on resource specialist. TAHIR SEYMOUR RN 09/04/2010 5:51 lan of [facility] - Zeynep Giron RN - 09/03/2010 3267 EDT Problem: ALTERED THOUGHT PROCESSES Goal: Desires Improvement In Ability To Think & Concentrate Outcome: Met This Shift Active Multi-Disciplinary problems: INEFFECTIVE COPING [[id number]] (08/29/10) SENSORY PERCEPTUAL ALTERATION [612103] (09/01/10) ALTERED THOUGHT PROCESSES [422335] (09/01/10) ALTERATION IN SLEEP [185902] (09/01/10) POTENTIAL FOR HARM TO SELF OR OTHERS [[id number]] (09/02/10) Data: Up and out of his room and enjoys going to groups. Mannerisms are slightly tense and affect mansi little blunted but pt has maintained his boundaries and is polite and appropriate. No C/O pain. Pthad two visitors and seemed to enjoy the company. Taking care of his adl's. Taking his medications without difficultly. Eating well. Enjoys the unit as the pt likes to watch TV and use the patient laptop and is polite and congenial to other patients. Action: Encourage groups. Monitor for Safety. Offer medications as ordered. Encourage patient to utilize positive coping techniques. Continue to assess mood, affect, pain. Offer 1:1 support as needed. Response: Has had an uneventful evening. Took all of his HS medications. Zeynep Giron RN 09/03/2010 22:27 lan of [place] - Rody Hendricks RN - 09/03/2010 1440 EDT Problem: INEFFECTIVE COPING Goal: Participates In Unit Activities Outcome: Met This Shift Active Multi-Disciplinary problems: ALTERED THOUGHT PROCESSES [[id number]] (09/01/10) IData: Says his mood is great. During 1:1 noted some irritability, some pressured speech and notedthoughts were disorganized. Thoughts difficult to follow at this time. Pt thought maybe he could usemore Nunica. Received additional dose of Nunica in the morning per MD order. Action: Offer 1:1 support, encourage group therapy. Monitor for safety in the environment of care. Offer medications as prescribed. Response: Maintained safety. Good ADLs. NO SI or SH thoughts. Medication compliant. Attended groups. Rody Hendricks RN 09/03/2010 14:40 lan of [place] - Tammy Law RN - 09/03/2010 0647 EDT Problem: ALTERATION IN SLEEP Goal: Reports Nightly Sleep, Duration And Quality Intervention: Document duration, quality of sleep and reasons Active Multi-Disciplinary problems: INEFFECTIVE COPING [[id number]] (08/29/10) SENSORY PERCEPTUAL ALTERATION [842415] (09/01/10) ALTERED THOUGHT PROCESSES [341861] (09/01/10) ALTERATION IN SLEEP [870277] (09/01/10) POTENTIAL FOR HARM TO SELF OR OTHERS [600594] (09/02/10) Data: Pt awake once for briefly otherwise appeared to sleep well. No complaints voiced this shift. Action: Maintained on routine observation. Response: Continue to monitor. Tammy Law RN 09/03/2010 6:44 lan of [place] - Hanna Chery RN - 09/02/2010 1812 EDT Problem: INEFFECTIVE COPING Goal: Participates In Unit Activities Outcome: Ongoing Active Multi-Disciplinary problems: INEFFECTIVE COPING [[id number]] (08/29/10) SENSORY PERCEPTUAL ALTERATION [135513] (09/01/10) ALTERED THOUGHT PROCESSES [606336] (09/01/10) ALTERATION IN SLEEP [896330] (09/01/10) POTENTIAL FOR HARM TO SELF OR OTHERS [[id number]] (09/02/10) Data: Affect Angry. Pt discussed wanting to leave, meeting with resident, and family meeting with this RN.Explained to pt that the Dr Long will meet with him tomorrow. Pt was reminded that A family meeting is not yet scheduled. Pt then discussed leaving the unit today. Pt became angry, raised his voice and was in the personal space of this RN. Action: medications, 1:1, monitor behavior, Response: Pt states he knows what it takes to live with his bipolar disorder,and that he will managehis illness on his own at home. Pt states I don't want to stay here any longer. pt also reminded this personal lines underwriter that he is here on a voluntary basis. This RN explained the procedure for leaving. When ptlearned that he could possibly become involuntary through the crisis screening process he did not pursue the process. Affect remains angry. Hanna Chery RN 09/02/2010 17:47 Problem: SENSORY PERCEPTUAL ALTERATION - auditory/visual hallucinations - posturing - restlessness - pacing - increasing agitation - aggression Goal: Participates In Unit Activities Outcome: Ongoing Active Multi-Disciplinary problems: INEFFECTIVE COPING [[id number]] (08/29/10) SENSORY PERCEPTUAL ALTERATION [688126] (09/01/10) ALTERED THOUGHT PROCESSES [[id number]] (09/01/10) ALTERATION IN SLEEP [242936] (09/01/10) POTENTIAL FOR HARM TO SELF OR OTHERS [[id number]] (09/02/10) Data: Affect Angry. Pt discussed wanting to leave, meeting with resident, and family meeting with this RN.Explained to pt that the Dr Long will meet with him tomorrow. Pt was reminded that A family meeting is not yet scheduled. Pt then discussed leaving the unit today. Pt became angry, raised his voice and was in the personal space of this RN. Action: medications, 1:1, monitor behavior, Response: Pt states he knows what it takes to live with his bipolar disorder,and that he will managehis illness on his own at home. Pt states I don't want to stay here any longer. pt also reminded this personal lines underwriter that he is here on a voluntary basis. This RN explained the procedure for leaving. When ptlearned that he could possibly become involuntary through the crisis screening process he did not pursue the process. Affect remains angry. Hanna Chery RN 09/02/2010 17:47 Problem: POTENTIAL FOR HARM TO SELF OR OTHERS Goal: Participates In Unit Activities Outcome: Ongoing Active Multi-Disciplinary problems: INEFFECTIVE COPING [[id number]] (08/29/10) SENSORY PERCEPTUAL ALTERATION [592624] (09/01/10) ALTERED THOUGHT PROCESSES [173014] (09/01/10) ALTERATION IN SLEEP [319421] (09/01/10) POTENTIAL FOR HARM TO SELF OR OTHERS [[id number]] (09/02/10) Data: Affect Angry. Pt discussed wanting to leave, meeting with resident, and family meeting with this RN.Explained to pt that the [place] will meet with him tomorrow. Pt was reminded that A family meeting is not yet scheduled. Pt then discussed leaving the unit today. Pt became angry, raised his voice and was in the personal space of this RN. Action: medications, 1:1, monitor behavior, Response: Pt states he knows what it takes to live with his bipolar disorder,and that he will managehis illness on his own at home. Pt states I don't want to stay here any longer. pt also reminded this personal lines underwriter that he is here on a voluntary basis. This RN explained the procedure for leaving. When ptlearned that he could possibly become involuntary through the crisis screening process he did not pursue the process. Affect remains angry. Hanna Chery RN 09/02/2010 17:47 lan of Care - Wallace Arndt RN - 09/02/2010 1500 EDT Problem: INEFFECTIVE COPING Goal: Participates In Unit Activities Outcome: Ongoing Active Multi-Disciplinary problems: INEFFECTIVE COPING [[id number]] (08/29/10) ALTERED THOUGHT PROCESSES [[id number]] (09/01/10) ALTERATION IN SLEEP [992175] (09/01/10) Data: Locus of harm level 3 changed from 4. No SI/HI. Mood Elevated. Increased energy. No sexual behavior noted. Intense stare. Feels he is able to control people. Describes it as he knows how to push people's buttons to get what he wants. Hypertensive BP 155/79. Wgt 192.9. Action: Monitor for safety. Routine observation changed from frequents. One to one offered. Wgt done. Encouraged groups. Response: Patient remains safe. Attended Goal setting group and Communication group. in visiting. Wallace Arndt RN 09/02/2010 14:52 Problem: SENSORY PERCEPTUAL ALTERATION - auditory/visual hallucinations - posturing - restlessness - pacing - increasing agitation - aggression Goal: Participates In Unit Activities Outcome: Ongoing Active Multi-Disciplinary problems: INEFFECTIVE COPING [[id number]] (08/29/10) ALTERED THOUGHT PROCESSES [[id number]] (09/01/10) ALTERATION IN SLEEP [063549] (09/01/10) Data: Locus of harm level 3 changed from 4. No SI/HI. Mood Elevated. Increased energy. No sexual behavior noted. Intense stare. Feels he is able to control people. Describes it as he knows how to push people's buttons to get what he wants. Hypertensive BP 155/79. Wgt 192.9. Action: Monitor for safety. Routine observation changed from frequents. One to one offered. Wgt done. Encouraged groups. Response: Patient remains safe. Attended Goal setting group and Communication group. in visiting. Wallace Arndt RN 09/02/2010 14:52 lan of [facility] - Fatoumata Frias RN - 09/02/2010 0646 EDT Problem: ALTERATION IN SLEEP Goal: Informs Staff If Unable To Sleep Outcome: Met This Shift Active Multi-Disciplinary problems: INEFFECTIVE COPING [[id number]] (08/29/10) ALTERED THOUGHT PROCESSES [261888] (09/01/10) ALTERATION IN SLEEP [534854] (09/01/10) Data: Pt sleep at the start of shift. Intermittent sleep. Pt waving at staff when awake. Action: monitor quality and duration of sleep. . Response: Pt notifies staff when not asleep. Denies need for intervention. Quickly asleep on own. 6.5 hours of sleep Fatoumata Frias RN 09/02/2010 6:40 lan of [facility] - Hanna Chery RN - 09/01/2010 1833 EDT Problem: INEFFECTIVE COPING Goal: Participates In Unit Activities Outcome: Ongoing Active Multi-Disciplinary problems: INEFFECTIVE COPING [[id number]] (08/29/10) ALTERED THOUGHT PROCESSES [170441] (09/01/10) ALTERATION IN SLEEP [049926] (09/01/10) Data: pt social in milieu, watched television with peers. Action: medication,1:1 Response: Denies s/i or h/i. Denies pain. Behavior in control. Pleasant upon all interactions. Hanna Chery RN 09/01/2010 22:44 Problem: SENSORY PERCEPTUAL ALTERATION - auditory/visual hallucinations - posturing - restlessness - pacing - increasing agitation - aggression Goal: Participates In Unit Activities Outcome: Ongoing Active Multi-Disciplinary problems: INEFFECTIVE COPING [[id number]] (08/29/10) ALTERED THOUGHT PROCESSES [770332] (09/01/10) ALTERATION IN SLEEP [897906] (09/01/10) Data: pt social in milieu, watched television with peers. Action: medication,1:1 Response: Denies s/i or h/i. Denies pain. Behavior in control. Pleasant upon all interactions. Hanna Chery RN 09/01/2010 22:44 lan of [place] - Rody Hendricks RN - 09/01/2010 1154 EDT Problem: INEFFECTIVE COPING Goal: Participates In Unit Activities Outcome: Met This Shift Active Multi-Disciplinary problems: INEFFECTIVE COPING [[id number]] (08/29/10) ALTERED THOUGHT PROCESSES [761132] (09/01/10) ALTERATION IN SLEEP [[id number]] (09/01/10) Data: Says his mood is good. Acknowledges he still has what he knows are inappropriate impulses but will not act on them. For instance I would like to hold your hand while we talk, but I know this is against the rules. Rules help me. Activity therapist reported he patted a female pt's hand during group and was redirected. Continues to say that his and the MD will know when he is ready to go home. No other inappropriate behaviors noted. Pt pleasant and appropriate on all contacts. Reports sleep is good. Asleep last night by 1000. Out to garden, no inappropriate touch noted, behavior in control. Action: Offer 1:1 support, encourage group therapy Monitor for safety in the environment of care, Offer medications as prescribed. Response: Maintained safety. Good ADLs. NO SI or SH thoughts. Medication compliant. Attending groupsable to focus Rody Hendricks RN 09/01/2010 11:54 lan of [place] - Nyla Carrasquillo RN - 09/01/2010 0602 EDT Problem: ALTERATION IN SLEEP Goal: FA RESTS/SLEEPS 6-8 HOURS PER DAY Outcome: Not Met This Shift Active Multi-Disciplinary problems: INEFFECTIVE COPING [[id number]] (08/29/10) SENSORY PERCEPTUAL ALTERATION [486416] (09/01/10) ALTERED THOUGHT PROCESSES [[id number]] (09/01/10) ALTERATION IN SLEEP [671034] (09/01/10) Data: Pt slept soundly until 0400, at which point he was awake on and off and finally got up at 0530. He requested to shave. Behavior is friendly, cooperative, and appropriate and he is clothed. Action: Monitored frequently for safety. Asked to wait to shave on day shift. Response: Pt remained safe on the unit; continue to monitor. Pt amenable to waiting till day shift to shave. Nyla Carrasquillo RN 09/01/2010 5:59 lan of Hanna Ramon RN - 08/31/2010 2242 EDT Problem: INEFFECTIVE COPING Goal: Participates In Unit Activities Outcome: Ongoing Active Multi-Disciplinary problems: INEFFECTIVE COPING [[id number]] (08/29/10) Data: Pt's family visited this shift. Pt was pleased with this visit. Action: 1:1, medications. Response: Pt is pleasant and cooperative. Compliant with medications. Denies s/i or h/i. Pt continues to ask about discharge, and states he would like discharge as soon as possible. Hanna Chery RN 08/31/2010 22:37 [facility] - Jocelyn Lau S - 08/31/2010 1723 EDT Pet Therapy:S/O Patient came and sat and talked with volunteer for 20min.. He smiled frequently. A. Enjoyed interacting with the dog and volunteer-initiating socialization. lan of [facility] - Rody Hendricks RN - 08/31/2010 1613 EDT Problem: INEFFECTIVE COPING Goal: Participates In Unit Activities Outcome: Met This Shift Active Multi-Disciplinary problems: INEFFECTIVE COPING [[id number]] (08/29/10) Data: Again Pt states he is still a bit energized. Continues to say that his and the MD will know when he is ready to go home. Reports his Mood is still somewhat elevated. During 1:1 he said he knew he could trust me more than a 100 %. Thinking remains a bit grandiose. Continues to ask for feedback from staff. Behaviors appropriate, no aggression or any intrusiveness noted. Out with garden group today, without incident. Pt pleasant and appropriate on all contacts. Action: Offer 1:1 support, encourage group therapy Monitor for safety in the environment of care, Offer medications as prescribed Response: Maintained safety. Good ADLs. NO SI or SH thoughts. Medication compliant. Attending groups. Rody Hendricks RN 08/31/2010 16:13 lan of [facility] - Karma Leigh RN - 08/31/2010 0658 EDT Problem: INEFFECTIVE COPING Goal: Cooperates With Admission Process Active Multi-Disciplinary problems: INEFFECTIVE COPING [[id number]] (08/29/10) Data: Pt asleep when rec'd for care at 2330. Action: Pt monitored on frequent obs for safety. Response: Pt awake for about 30 mins at 0500, returned to sleep. Currently asleep, no complaints. Karma Leigh RN 08/31/2010 6:54 lan of [facility] Dev Cohen - 08/30/2010 1856 EDT Problem: INEFFECTIVE COPING Goal: Participates In Unit Activities Outcome: Ongoing Active Multi-Disciplinary problems: INEFFECTIVE COPING [[id number]] (08/29/10) Data: Pt had family visit this shift. Pt out in milieu for evening meal, and had been social with peers. Action: 1:1 , medications Response: Pt denies any s/i or h/i ,denies pain. Pt talks of discharge early in week. Pt was informed discharge may not take place that rapidly. Addendum: Pt socialized with a female peer, went to bed at 2100 [facility] [place] [facility] [place] [facility] Pleasant and agreeable, no sign of intrusive behavior Hanna Chery RN 08/30/2010 18:52 lan of [place] - Rody Hendricks RN - 08/30/2010 1657 EDT Problem: INEFFECTIVE COPING Goal: Participates In Unit Activities Outcome: Met This Shift Active Multi-Disciplinary problems: INEFFECTIVE COPING [[id number]] (08/29/10) Data: Pt states he is a bit energized still. States his with the MD will know when he is ready to go home. Appreciative of staff being direct with him. 1:1 discussed patient and staff boundaries. He intends to not act on his impulses. Pt attended group and behavior appropriate today in the milieu. Spent some quiet time in his room working at his desk. Family into visit this afternoon. Pt pleasant on all contacts. Action: Offer 1:1 support, encourage group therapy Monitor for safety in the environment of care, Offer medications as prescribed Response: Maintained safety. Good ADLs. Appetite is good. NO SI or SH thoughts. Rody Hendricks RN 08/30/2010 16:50 lan of Karma Schroeder RN - 08/30/2010 0654 EDT Problem: INEFFECTIVE COPING Goal: Cooperates With Admission Process Active Multi-Disciplinary problems: INEFFECTIVE COPING [[id number]] (08/29/10) Data: Pt asleep when rec'd for care at 2330. Action: Pt monitored on frequent obs for safety. Able to get some of nursing admit data base completed. Urine spec sent to lab at 0630. Response: Pt slept soundly until 0430. Since getting up for the day, pt was assisted with putting his clothes in the washer (given Shep 6 garb), showered on his own, and shaved with constant observation. Pt has been out in the kitchen area conversing with another pt ([id number]). Pt has been polite, appropriate and pleasant. Pt has been very calm while talking with pt S.T and quite patient in dealing with her pressured speech and tangentiality. He listens intently. Pt himself has been speaking in normal rate/volume. No delusional content noted. Denies SI. Overall approx 5 hrs of sleep this shift. Willneed to expand pt's nursing database. Karma Leigh RN 08/30/2010 6:43 lan of Care - Joaquin Ovalles RN - 08/29/20102117 EDT Problem: INEFFECTIVE COPING Goal: Cooperates With Admission Process Outcome: Ongoing Data: Pt noted to be calm and pleasant when approached initially at 2000. Pt mood appropriate with good eye contact. Pt content in room rest of shift. Action: Pt given meds per order. Attempted to offer supportive 1:1 and to work on admission database. Pt search done and documented. Pt remains on frequent observations for safety. Response: Pt noted to be very lethargic thus unable to provide hx for database. Pt denies pain and voices no SI/HI. Pt has no complaints or concerns at this time. Pt declined 1:1 and requested to sleep, compliant with medications. Pt remains safe on the unit. JOAQUIN WARD RN 08/29/2010 21:12 lan of [place] - Hanna Chery RN - 08/29/2010 1919 EDT Problem: INEFFECTIVE COPING Goal: Cooperates With Admission Process Outcome: Ongoing Active Multi-Disciplinary problems: INEFFECTIVE COPING [[id number]] (08/29/10) Data: Pt is pleasant and cooperative. Answers questions as asked. Action: 1:1, medications Response: Continue to provide therapeutic environment. Hanna Chery, IBAN 08/29/2010 19:17 canned Note-Null - Pot Pusher, Scan - 08/29/2010 0000 EDT Scanned Note-Null - Pot Pusher, Scan - 08/29/2010 0000 EDT Scanned Note-Null - Pot Pusher, Scan - 08/29/2010 0000 EDT Scanned Note-Null - Pot Pusher, Scan - 08/29/2010 0000 EDT Scanned Note-Null - Pot Pusher, Scan - 08/29/2010 0000 EDT Plan of Care - Pot Pusher, Scan - 08/29/2010 0000 EDT documented in this encounter Plan of Treatment Not on filedocumented as of this encounter Procedures Procedure Name Priority Date/Time Associated Comments Diagnosis INPATIENT ADD-ON Routine 09/07/2010 9:05 Results for this EDT procedure are i n the results section. TSH Routine 09/07/2010 7:29 Results for this EDT procedure are i n the results section. LITHIUM Routine 09/07/2010 7:29 Results for this EDT procedure are i n the results section. LITHIUM Routine 09/02/2010 20:09 Results for this EDT procedure are i n the results section. VALPROIC ACID LEVEL Routine 09/02/2010 20:09 Resu lts for this EDT procedure are i n the results section. SCREENING GLUCOSE Routine 08/30/2010 7:23 Results for this EDT procedure are i n the results section. VITAMIN D (25,OH) Routine 08/30/2010 7:23 Results for this EDT procedure are i n the results section. COMPLETE BLOOD COUNT Routine 08/30/2010 7:23 Resu lts for this AND DIFFERENTIAL EDT procedure a re in the results section. BUN Routine 08/30/2010 7:23 Results for this EDT procedure are i n the results section. ALT Routine 08/30/2010 7:23 Results for this EDT procedure are i n the results section. AST Routine 08/30/2010 7:23 Results for this EDT procedure are i n the results section. TSH Routine 08/30/2010 7:23 Results for this EDT procedure are i n the results section. ALKALINE PHOSPHATASE Routine 08/30/2010 7:23 Resu lts for this EDT procedure are i n the results section. GGT Routine 08/30/2010 7:23 Results for this EDT procedure are i n the results section. FOLATE Routine 08/30/2010 7:23 Results for this EDT procedure are i n the results section. VITAMIN B12 Routine 08/30/2010 7:23 Results for this EDT procedure are i n the results section. CREATININE Routine 08/30/2010 7:23 Results for this EDT procedure are i n the results section. ETHANOL, BLOOD Routine 08/30/2010 7:23 Results fo r this EDT procedure are i n the results section. ALBUMIN Routine 08/30/2010 7:23 Results for this EDT procedure are i n the results section. LITHIUM Routine 08/30/2010 7:23 Results for this EDT procedure are i n the results section. VALPROIC ACID LEVEL Routine 08/30/2010 7:23 Resul ts for this EDT procedure are i n the results section. ELECTROLYTES Routine 08/30/2010 7:23 Results for this EDT procedure are i n the results section. URINALYSIS WITH Routine 08/30/2010 5:28 Results f or this MICROSCOPIC IF EDT procedure are in POSITIVE the results section. UA REFLEX Routine 08/30/2010 5:28 Results for this EDT procedure are i n the results section. documented in this encounter Results INPATIENT ADD-ON (09/07/2010 9:05 EDT) Pathologist Sig nature Tests to be added TSH [facility] Number for problems [id number] [facility] Accession number [id number] [facility] Specimen Performing Organization Address City/State/ZIP Code Phon e Number [facility] [address] [place] [address] SERVICES [facility] [address] [place] [address] TSH (09/07/2010 7:29 EDT) Pathologist Sig nature TSH 2.10 0.35 - 5.00 uIU/ml [facility] Specimen Performing Organization Address City/[facility]/ZIP Code Phon e Number [facility] [address] [place] [address] SERVICES [facility] [address] [place] [address] LITHIUM (09/07/2010 7:29 EDT) Pathologist Sig nature [place] 0.7 0.6 - 1.2 mEq/L [facility] Specimen Blood specimen (specimen) Performing Organization Address City/[facility]/ZIP Code Phon e Number [facility] [address] [place] [address] SERVICES [facility] [address] [place] [address] VALPROIC ACID LEVEL (09/02/2010 20:09 EDT) Pathologist Sig nature Valproic Acid 52.5 50.0 - 100.0 ug/ml [facility] Specimen Blood specimen (specimen) Performing Organization Address [facility]/ZIP Code Phon e Number [facility] [address] [place] [address] SERVICES [facility] [address] [place] [address] (ABNORMAL) LITHIUM (09/02/2010 20:09 EDT) Pathologist Sig nature [place] 0.5 (L) 0.6 - 1.2 mEq/L [facility] Specimen Blood specimen (specimen) Performing Organization Address City/[facility]/ZIP Code Phon e Number [facility] [address] [place] [address] SERVICES [facility] [address] [place] [address] VITAMIN D (25,OH) (08/30/2010 7:23 EDT) 25OH Vitamin D Tot 20.9 ng/ml [facility] Comment: LAB Reference Range: <10 ng/ml: Deficient 10-30 ng/m l: Insufficient 30-100 ng/ml: Sufficient >100 ng/ml: Toxic Specimen Blood specimen (specimen) Performing Organization Address City/[facility]/ZIP Code Phon e Number [facility] [address] [place] [address] SERVICES [facility] [address] [place] [address] ETHANOL, BLOOD (08/30/2010 7:23 EDT) Pathologist Sig nature Ethanol <10 <10 mg/dl [facility] Specimen Blood specimen (specimen) Performing Organization Address City/State/ZIP Code Phon e Number [facility] [address] [place] [address] SERVICES [facility] [address] [place] [address] VALPROIC ACID LEVEL (08/30/2010 7:23 EDT) Pathologist Sig nature Valproic Acid 76.6 50.0 - 100.0 ug/ml [facility] Specimen Blood specimen (specimen) Performing Organization Address [facility] Phon e Number [facility] [address] [place] [address] SERVICES [facility] [address] [place] [address] LITHIUM (08/30/2010 7:23 EDT) Pathologist Sig nature [place] 0.6 0.6 - 1.2 mEq/L [facility] Specimen Blood specimen (specimen) Performing Organization Address [facility] Phon e Number [facility] [address] [place] [address] SERVICES [facility] [address] [place] [address] FOLATE (08/30/2010 7:23 EDT) Pathologist Sig nature Folate 17.9 ng/mL [facility] Comment: Deficient: ??Less than 3.4 n g/mL Indeterminate: ??3.4-5.4 ng/mL Normal: ??Greater than 5.4 ng/mL Specimen Blood specimen (specimen) Performing Organization Address [facility] Phon e Number [facility] [address] [place] [address] SERVICES [facility] [address] [place] [address] VITAMIN B12 (08/30/2010 7:23 EDT) Pathologist Sig nature Vitamin B-12 593 211 - 911 pg/ml [facility] Specimen Blood specimen (specimen) Performing Organization Address [facility]/ZIP [place] Phon e Number [facility] [address] [place] [address] SERVICES [facility] [address] [place] [address] (ABNORMAL) HEMAGRAM AND DIFFERENTIAL (08/30/2010 7:23 EDT) Pathologist Sig nature WBC 11.40 (H) 4.0 - 10.4 K/cmm [facility] RBC 4.86 4.36 - 5.78 M/cmm [facility] Hemoglobin 15.4 13.8 - 17.3 gm/dl [facility] HCT 45.0 39.5 - 50.2 % [facility] MCV 93 81 - 95 fl [facility] MCH 31.7 27.6 - 33.0 pg [facility] MCHC 34.2 32.8 - 36.4 gm/dl [facility] PLT 229 141 - 320 K/cmm [facility] RDW-CV 13.2 11.8 - 14.1 % [facility] Neutrophils 68.5 45.5 - 79.7 % [facility] Lymphocytes 16.6 15.0 - 46.8 % [facility] Monocytes 10.1 1.8 - 12.0 % [facility] Eosinophils 4.4 0.6 - 6.9 % [facility] Basophils 0.4 0.2 - 1.4 % [facility] ABS Neutrophils 7.82 2.20 - 8.85 K/cmm [facility] ABS Lymphs 1.89 1.09 - 3.30 K/cmm [facility] ABS Monocytes 1.16 (H) 0.1 - 0.8 K/cmm [facility] ABS Eosinophils 0.50 0.03 - 0.61 K/cmm [facility] ABS Basophils 0.04 0.01 - 0.11 K/cmm [facility] Type of Diff: Automated [facility] Specimen Blood specimen (specimen) Performing Organization Address City/State/ZIP Code Phon e Number [facility] [address] [place] [address] SERVICES [facility] [address] [place] [address] (ABNORMAL) TSH (08/30/2010 7:23 EDT) Pathologist Sig nature TSH 0.26 (L) 0.35 - 5.00 uIU/ml [facility] Specimen Blood specimen (specimen) Performing Organization Address City/[facility]/ZIP Code Phon e Number [facility] [address] [place] [address] SERVICES [facility] [address] [place] [address] ALT (08/30/2010 7:23 EDT) Pathologist Sig nature ALT 23 21 - 72 U/L [facility] Specimen Blood specimen (specimen) Performing Organization Address City/State/ZIP Code Phon e Number [facility] [address] [place] [address] SERVICES [facility] [address] [place] [address] AST (08/30/2010 7:23 EDT) Pathologist Sig nature AST 24 15 - 46 U/L [facility] Specimen Blood specimen (specimen) Performing Organization Address City/[facility]/ZIP Code Phon e Number [facility] [address] [place] [address] SERVICES [facility] [address] [place] [address] ALBUMIN (08/30/2010 7:23 EDT) Pathologist Sig nature Albumin 4.7 3.4 - 4.9 g/dl [facility] Specimen Blood specimen (specimen) Performing Organization Address City/[facility]/ZIP Code Phon e Number [facility] [address] [place] [address] SERVICES [facility] [address] [place] [address] GGT (08/30/2010 7:23 EDT) Pathologist Sig nature GGT 19 15 - 73 U/L [facility] Specimen Blood specimen (specimen) Performing Organization Address City/[facility]/ZIP Code Phon e Number [facility] [address] [place] [address] SERVICES [facility] [address] [place] [address] ALKALINE PHOSPHATASE (08/30/2010 7:23 EDT) Pathologist Sig nature Total Alkaline 58 38 - 126 U/L [facility] Phosphatase Specimen Blood specimen (specimen) Performing Organization Address City/[facility]/ZIP Code Phon e Number [facility] [address] [place] [address] SERVICES [facility] [address] [place] [address] CREATININE (08/30/2010 7:23 EDT) Pathologist Sig nature Creatinine 0.96 0.7 - 1.5 mg/dl [facility] GFR, Calculated >60 ml/min/1.73m2 [facility] Specimen Blood specimen (specimen) Performing Organization Address City/State/ZIP Code Phon e Number [facility] [address] [place] [address] SERVICES [facility] [address] [place] [address] BUN (08/30/2010 7:23 EDT) Pathologist Sig nature BUN 10 10 - 26 mg/dl [facility] Specimen Blood specimen (specimen) Performing Organization Address [facility]/ZIP Code Phon e Number [facility] [address] [place] [address] SERVICES [facility] [address] [place] [address] (ABNORMAL) ELECTROLYTES (08/30/2010 7:23 EDT) Pathologist Sig nature Sodium 146 (H) 136 - 145 mEq/L [facility] Potassium 4.8 3.5 - 5.0 mEq/L [facility] Chloride 108 96 - 110 mEq/L [facility] CO2 27 24 - 32 mEq/L [facility] Specimen Blood specimen (specimen) Performing Organization Address [facility] Phon e Number [facility] [address] [place] [address] SERVICES [facility] [address] [place] [address] SCREENING GLUCOSE (08/30/2010 7:23 EDT) Pathologist Sig [facility] Glucose, Screening 80 70 - 100 mg/dl [facility] Specimen Blood specimen (specimen) Performing Organization Address City/[facility]/ZIP Code Phon e Number [facility] [address] [place] [address] SERVICES [facility] [address] [place] [address] UA REFLEX (08/30/2010 5:28 EDT) Pathologist Sig nature UA Billing Microscopic not [facility] indicated. Specimen Performing Organization Address City/[facility]/ZIP Code Phon e Number [facility] [address] [place] [address] SERVICES [facility] [address] [place] [address] URINALYSIS (08/30/2010 5:28 EDT) Pathologist Sig nature Color, UA Yellow [facility] Clarity, UA Clear [facility] Glucose, UA Neg NEG [facility] Bilirubin, UA Neg NEG [facility] Ketones, UA Neg NEG [facility] Specific [place], <1.005 1.001 - 1.035 [facility] Urine Blood, UA Neg NEG [facility] pH, UA 6.5 4.6 - 8.0 [facility] Protein, UA Neg NEG [facility] Urobilinogen, UA 0.2 0.2 - 1.0 [facility] E.U./dl Nitrite, UA Neg NEG [facility] Leuk Esterase Neg NEG [facility] Specimen Urine (substance) Performing Organization Address City/State/ZIP Code Phon e Number [facility] [address] [place] [address] SERVICES [facility] [address] [place] [address] documented in this encounter Visit Diagnoses Diagnosis Bipolar I disorder, most recent episode (or current) manic, moderate (HCC-CMS) ([facility]) - Primary Bipolar I disorder, most recent episode (or current) manic, moderate documented in this encounter Administered Medications Inactive Administered Medications - up to 3 most recent administrations Medication Order MAR Action Action Date Dose Rate Site divalproex (DEPAKOTE) ER tablet Given 09/08/2010 20:53 EDT 1,000 mg 1,000 mg 1,000 mg, oral, AT BEDTIME, First dose on Wed08/29/10 at 2100, Until Discontinued, Routine Given 09/07/2010 20:32 EDT 1,000 mg Given 09/06/2010 20:54 EDT 1,000 mg lamotrigine (LAMICTAL) tablet 100 mg Given 09/09/2010 8:15 EDT 100 mg 100 mg, oral, DAILY, First dose (after last modification) on Wed09/02/10 at 0900, Until Discontinued, Routine Given 09/08/2010 9:07 EDT 100 mg Given 09/07/2010 8:43 EDT 100 mg lamotrigine (LAMICTAL) tablet 150 mg Given 09/01/2010 9:07 EDT 150 mg 150 mg, oral, DAILY, First dose on Wed08/30/10 at 0900, Until Discontinued, Routine Given 08/31/2010 9:44 EDT 150 mg Given 08/30/2010 9:55 EDT 150 mg lithium carbonate tablet 300 mg Given 09/03/2010 9:30 EDT 300 mg 300 mg, oral, DAILY, First dose on 08/30/10 at 0900, Until Discontinued, Routine Given 09/02/2010 9:22 EDT 300 mg Given 09/01/2010 9:07 EDT 300 mg lithium carbonate tablet 300 mg Given 09/03/2010 12:34 EDT 300 mg 300 mg, oral, NOW X1, 1 dose, On Wed09/03/10 at 1200, Routine lithium carbonate tablet 600 mg Given 09/08/2010 20:53 EDT 600 mg 600 mg, oral, AT BEDTIME, First dose (after last modification) on Wed08/29/10 at 2100, Until Discontinued, Routine Given 09/07/2010 20:33 EDT 600 mg Given 09/06/2010 20:54 EDT 600 mg lithium carbonate tablet 600 mg Given 09/09/2010 8:15 EDT 600 mg 600 mg, oral, DAILY, First dose (after last modification) on Wed09/04/10 at 0900, Until Discontinued, Routine Given 09/08/2010 9:07 EDT 600 mg Given 09/07/2010 8:43 EDT 600 mg propranolol (INDERAL) tablet 60 mg Given 09/09/2010 8:15 EDT 60 mg 60 mg, oral, DAILY, First dose on Wed08/30/10 at 0900, Until Discontinued, Routine Given 09/08/2010 9:08 EDT 60 mg Given 09/07/2010 8:44 EDT 60 mg quetiapine (SEROQUEL) tablet 100 mg Given 09/08/2010 20:54 EDT 100 mg 100 mg, oral, AT BEDTIME, First dose on Wed08/29/10 at 2100, Until Discontinued, Routine Given 09/07/2010 20:32 EDT 100 mg Given 09/06/2010 20:53 EDT 100 mg quetiapine (SEROQUEL) tablet 50 mg Given 09/02/2010 18:22 EDT 50 mg 50 mg, oral, DAILY PRN, Starting on Wed08/29/10 at 1737, Until Wed09/09/10 at 1705, Other, Anxiety or agitation, Routine documented in this encounter Discontinued Medications Medication Sig Discontinue Reason Start Date End Date divalproex (DEPAKOTE) Take 1,000 mg by 08/29/2010 500 mg ER mouth at bedtime. tabletIndications: Indications: BIPOLAR bipolar disorder DISORDER lithium carbonate 300 Take 300 mg by mouth 08/29/2010 09/09/2010 mg tabletIndications: 2 times daily. bipolar disorder Indications: BIPOLAR DISORDER documented as of this encounter Historical Medications This list may reflect changes made after this encounter. Medication Sig Dispensed Refills Start Date End Date risperidone (RISPERDAL) Take 1 mg by mouth 4 0 1 mg tabletIndications: times daily as Agitation needed. Indications: Agitation lamotrigine (LAMICTAL) Take 150 mg by mouth 0 100 mg daily. Indications: tabletIndications: BIPOLAR DISORDER bipolar disorder propranolol (INDERAL) 60 Take 60 mg by mouth 0 mg tabletIndications: daily. Indications: essential tremor ESSENTIAL TREMOR divalproex (DEPAKOTE) Take 1,000 mg by 0 08/30/19 11 09/09/2010 500 mg ER mouth at bedtime. tabletIndications: Indications: BIPOLAR bipolar disorder DISORDER lithium carbonate 300 mg Take 300 mg by mouth 0 0 08/29/2010 09/09/2010 tabletIndications: 2 times daily. bipolar disorder Indications: BIPOLAR DISORDER added in this encounter Active and Recently Administered Medications Times are shown in EDT. Scheduled Medication Order 09/07/2010 09/08/2010 09/09/2010 divalproex (DEPAKOTE) ER tablet 1,000 mg 2031 (Given - Provider: Wallace Arndt RN) 2052 (Given - Provider: Jessica Shah RN) 1,000 mg, Oral, AT BEDTIME, First dose o n Wed08/29/10 at 2100, Until Discontinued lamotrigine (LAMICTAL) tablet 100 mg (CANCELED) 842 ( Given - Provider: Flores Ontiveros RN) 09 (Given - Provider: Eliud Lennon) 0815 (Given - Provider: Eliud Lennon) 100 mg, Oral, DAILY, First dose on Wed09/02/10 at 0900, Until Di scontinued lithium carbonate tablet 600 mg (CANCELED) 2032 (Given - Provider: Wallace Arndt RN) 2052 (Given - Provider: Jessica Shah RN) 600 mg, Oral, AT BEDTIME, First dose on Wed08/29/10 at 2100, Until Discontinued lithium carbonate tablet 600 mg 08 (Given - Provider: Luis Felipe Ontiveros RN) 0907 (Given - Provider: Eliud Lennon) 0815 (Given - Provider: Eliud Lennon ) 600 mg, Oral, DAILY, First dose on Porsha 09/04/10 at 0900, Until Dis continued propranolol (INDERAL) tablet 60 mg (CANCELED) 843 (Gi corey - Provider: Flores Ontiveros RN) 0908 (Given - Provider: Eliud Lennon) 0815 (Given - Provider: Eliud Lennon) 60 mg, Oral, DAILY, First dose on 08/30/10 at 0900, Until Dis continued quetiapine (SEROQUEL) tablet 100 mg 2031 (Given - Provider: Wallace Arndt RN) 2053 (Given - Provider: Jessica Shah RN) 100 mg, Oral, AT BEDTIME, First dose on Wed08/29/10 at 2100, Until Discontinued documented in this encounter Orders Medications Ordered That Might Not Have Count Last Ord ered Date First Ordered Date Been Administered risperdone (RISPERDAL M-TABS) 1 09/04/2010 disintegrating tablet 1 mg lithium carbonate tablet 300 mg 1 08/29/2010 lithium carbonate tablet 600 mg 1 08/29/2010 lorazepam (ATIVAN) tablet 1 mg 1 08/29/2010 risperidone (RISPERDAL) tablet 1 mg 1 08/29/2010 Admission Count Last Ordered Date First Ordered Date NOTIFY PPS OF DISCHARGE COMPLETE 09/09/2010 ADMIT TO INPATIENT 08/29/2010 PPS NOTIFICATION OF PATIENT ARRIVAL ON 1 UNIT TEACHING SERVICE 08/29/2010 Discharge Count Last Ordered Date First Ordered Date DISCHARGE PATIENT 1 09/09/2010 documented in this encounter Care Teams Collections Professional Relationship Specialty Start Date End Date None, Provider PCP - General 08/29/10 documented as of this encounter
--- OUTSIDE RECORDS SUMMARY | 2021-11-29 19:37 | XMS_ITS | Encounter Summary ---
:1950 Author Organization [facility] Address [address] [place] [address] Care Team Providers Name Role Phone None, Provider Primary Care Provider Unavailable Encounter Details Date Type Department Care Team Description 11/05/2021 Lab Requisition [facility] Outr Resulting Lab, Pathology & Laboratory Provider [facility] [address] [place], [place] [address] Social History Tobacco Use Types Packs/Day Years [...] Name Priority Date/Time Associated Diagnosis Comme nts HOLD SST Today 11/05/2021 10:38 EDT Results for this procedure are i n the results section . PROLACTIN Today 11/05/2021 10:38 EDT Results for this procedure are i n the results section . T3 FREE Today 11/05/2021 10:38 EDT Results for this procedure are i n the results section . documented in this encounter Results HOLD SST (11/05/2021 10:38 EDT) Pathologist Sig nature Hold Hold [facility] Specimen Blood - Venous blood (substance) Performing Organization Address City/State/ZIP Code Phon e Number [facility] [address] [place] [address] SERVICES (ABNORMAL) T3 FREE (11/05/2021 10:38 EDT) Pathologist Sig nature T3, Free 2.7 (L) 2.8 - 5.3 pg/mL [facility] Specimen Blood - Venous blood (substance) Performing Organization Address City/State/ZIP Code Phon e Number [facility] [address] [place] [address] SERVICES PROLACTIN (11/05/2021 10:38 EDT) Pathologist Sig nature Prolactin 9.5 2.1 - 17.7 ng/mL [facility] Specimen Blood - Venous blood (substance) Performing Organization Address City/[facility]/ZIP Code Phon e Number [facility] [address] [place] [address] SERVICES documented in this encounter Visit Diagnoses Not on filedocumented in this encounter Care Teams Drying Machine Tender Relationship Specialty Start Date End Date None, Provider PCP - General 08/29/10 documented as of this encounter
--- OUTSIDE RECORDS SUMMARY | 2021-11-29 19:37 | XMS_ITS | Encounter Summary ---
:1950 Author Organization [facility] [place] [address] Care Team Providers Name Role Phone Jose Eduardo Barboza MD Primary Care Provider [phone] Encounter Details Date Type Department Care Team Description 11/11/[address] [facility] Brad Whalen Jr., [address] [facility] DO [place], [place] [address] [address] [place], [place] [phone] (Wo rk) Social History Tobacco Use Types Packs/Day Years Used Date Never Assessed Sex Assigned at Date Recorded Not on file documented as of this encounter Plan of Treatment Not on filedocumented as of this encounter Procedures Procedure Name Priority Date/Time Associated Diagnosis Comme nts CT HEAD WO CONTRAST STAT 11/11/2021 8:29 PM Re sults for this (GENERIC) EDT procedure are i n the results section. documented in this encounter Results CT Head wo Contrast (Generic) (11/11/2021 8:29 PM EDT) P athologist Signature PT CLASS E RAD ADMITDTTM RAD PT YEIMY PAULINO INFO [id number]^B RAD ROWN^BRAD^ A EXAM DESC CTHEAD^CT DH RAD HEAD WO CNTRST^RIS Anatomical Region Laterality [...] who have questions please contact the health manager critical care that requested your imaging first. ? Narrative [...] ho have questions please contact the health manager critical care that requested your imaging first. Brad Brown Jr., DO IMG CT ORDERABLES documented in this encounter Visit Diagnoses Not on filedocumented in this encounter Care Teams Lobsterman Relationship Specialty Start Date End Date oJse Eduardo Barboza MD PCP - General Family Medicine 02/09/[address] [place] [address] documented as of this encounter
--- OUTSIDE RECORDS SUMMARY | 2021-11-29 19:37 | XMS_ITS | Encounter Summary ---
:1950 Author Organization [facility] [place] [address] Care Team Providers Name Role Phone Jose Eduardo Barboza MD Primary Care Provider [phone] Encounter Details Date Type Department Care Team Description 09/14/2021 [facility] [place] [address] Social History Tobacco Use Types Packs/Day Years Used Date Never Assessed Sex Assigned at Date Recorded Not on file documented as of this encounter Medications at Time of Discharge Medication Sig Dispensed Refills Start Date End Date CIS Free Text Med - Inderal 60MG = 1 Tablet(s), 0 05/28/2006 PO, Once daily divalproex (DEPAKOTE ER) 1750MG = 3.5 0 7 500 mg 24 hr tablet Tablet(s), PO, QHS lithium 300 mg tablet 300M TABS IN AM 0 05/28 AND 3 TABS IN PM, PO, Twice daily lamoTRIgine (LAMICTAL) 150 150MG = 1 Tablet(s), 0 05/28/2006 mg tablet PO, QAM documented as of this encounter Plan of Treatment Not on filedocumented as of this encounter Procedures Procedure Name Priority Date/Time Associated Comments Diagnosis SMEAR REVIEW REPORT Routine 09/15/2021 8:04 AM Re sults for this EDT procedure are i n the results section. PERIPHERAL SMEAR Routine 09/14/2021 8:04 AM Resul ts for this REVIEW EDT procedure are i n the results section. documented in this encounter Results Smear Review Report (09/15/2021 8:04 AM EDT) Component Value Ref Test Analysis Performed At [facility] Method Time Signature Smear Review [id number] ? Location: [facility] The signing pathologist has (i) examined the relevant preparation(s) for the [facility] specimen(s) and (ii) rendered or confirmed the diagnosis(es) . HOSPITAL LABORATORY . ? ear Review DIAGNOSIS PERIPHERAL BLOOD, SMEAR: ?? 1. ??Erythrocytosis (see discussion) ?? 2. ??Mild absolute neutrophilia and monocytosis Electronically signed by: ?Jeff Cook MD Verified: ??09/16/2021 9:17 ?? Hematopathologist Performed at: ??-[facility] Dept. of Pathology, [place], [place] DISCUSSION The morphologic findings are nonspecific. [...] APRN PATHOLOGY/CYTOLOGY ORDERABLE S Performing Organization Address City/[facility]/[place] [address] Peripheral Smear Review (09/14/2021 8:04 AM EDT) [facility] gist Method Time Signature Periph Smear See Comment [facility] LABORATORY Comment: When completed by the Pathologist, repor t [id number] will display under Hematopathology Reports. Specimen Anatomical Collection Method Collection Time Receive d Time (Source) Location / / Volume Laterality Blood Venous Draw / 09/14/2021 8:04 AM 09/16/19 9:12 Unknown EDT PM EDT Resulting Agency Comment Spec In Lab Sascha Lopez APRN HEMATOLOGY ORDERABLES Performing Organization Address City/[facility]/[place] [address] documented in this encounter Visit Diagnoses Not on filedocumented in this encounter Care Teams Social Media Manager Relationship Specialty Start Date End Date Jose Eduardo Barboza MD PCP - General Family Medicine 02/09/19 [address] [place] [address] documented as of this encounter
[2021-11-29] MEDS: Enoxaparin 40 MG/0.4 ML SYR SC (20:39)
[2021-11-29] MEDS: buPROPion-CR 100 MG TABCR 200 MG PO (20:39)
[2021-11-29] MEDS: OLANZapine 10 MG TAB PO (20:39)
[2021-11-29] MEDS: QUEtiapine 25 MG TAB 75 MG PO (20:39)
[2021-11-29] MEDS: Normal Saline Flush 10 ML SYR IVP (20:39)
[2021-11-29] MEDS: Mirtazapine 15 MG TAB 45 MG PO (21:44)
[2021-11-29] MEDS: Melatonin 3 MG TAB 6 MG PO (21:44)
[2021-11-30] VITALS (7 sets, daily range): BP systolic 101–138; BP diastolic 67–80; PULSE 57–77; RESP 14–20; TEMP 36.6–37.4; O2SAT 95–97
--- NOTE | 2021-11-30 06:39 | HPE_ITS ---
Date of service: 11/29/21 Time of Service: 19:30 Assessment and Plan Assessment and plan (1) Pneumonia: Status: Acute (2) Acute UTI: Status: Acute (3) Hiccoughs: Status: Acute (4) Fatigue: Status: Acute (5) Dementia: Status: Chronic (6) Bipolar 1 disorder: Status: Chronic History of Present Illness Narrative: 71-year-old male history of bipolar disorder, dementia, recent psychiatric evaluation in the emergency department, currently tapering off of quetiapine and Ativan presents brought in by for jitteriness and patient endorsing that he cannot get enough air.? History and physical limited by patient's mental status.? No fevers no chills no cough no leg pain or swelling no chest pain. 71-year-old male history of bipolar disorder, dementia, brought in by for evaluation of intractable hiccups shortness of breath tremor, staring forward during most of examination and history, largely information has been supplemented by at bedside, endorsing that he cannot get enough air despite normal respiratory effort clear lungs bilaterally normal oxygenation; no chest pain no peripheral edema.? EKG showing left bundle branch block sinus rhythm unchanged from last EKG.? Normotensive afebrile.? No signs of trauma.? Patient does have fine tremor otherwise strength is intact no ataxia.? Currently tapering from quetiapine and Ativan consider medication withdrawal versus electrolyte abnormality versus less likely ACS versus unlikely PE pneumothorax or pneumonia.? Must also consider primary psychiatric diagnosis versus progressive dementia.? Will obtain screening labs x-ray EKG.? Fluids benzodiazepine close reassessment 18: 39 patient resting comfortably hiccups have resolved.? Bilateral external auditory canals clear.? No hypoxia no tachypnea.? Consider right lower lobe pneumonia with diaphragmatic irritation causing hiccups versus hiccups related t o weaning from antipsychotics and benzos.? Also patient was found to have UTI.? Given a generalized fatigue and family comfort level patient be placed in observation for antibiotics reassessment PFSH All Active Problems (Updated 11/30/21 @ 06:46 by Chapito Coleman) Pneumonia (Acute) Hiccoughs (Acute) Fatigue (Acute) Acute UTI (Acute) Hard of hearing (Chronic) refuses to wear hearing aids Health care proxy on file (Chronic) , Sisi Shepherd daughter, Monica El, back-up DNI (do not intubate) (Acute) DNR (do not resuscitate) (Acute) POLST (Physician Orders for Life-Sustaining Treatment) (Acute) Vaccine counseling (Acute) Dementia (Chronic) Palliative care patient (Acute) Incontinence of bowel (Acute) Incontinence of urine (Acute) Frequent falls (Acute) Carotid stenosis (Acute) Acute kidney injury (Acute) Discharge planning issues (Acute) DVT prophylaxis (Acute) Exposure to excessive natural heat (Acute) Atrial flutter by electrocardiogram (Acute) Altered mental status (Acute) Medically noncompliant (Acute) Confusion (Acute) Taking multiple medications for chronic disease (Acute) Ambulatory dysfunction (Acute) Bipolar disorder (Chronic) diagnosed in 1992 mood swings all his life Leg cramps (Acute) Neural hearing loss, bilateral (Acute) Nasal turbinate hypertrophy (Acute) Congenital nasal septum deviation (Acute) Orthopnea (Acute) Breathlessness (Acute) Low back pain (Acute) Sleep disorder (Acute) Nasal obstruction (Acute) Diverticula of colon (Acute) Bipolar disorder, current episode manic severe with psychotic features (Acute) Tremor (Acute 06/14/17) Paralysis agitans (Acute) Lynn (Acute 01/06/17) Bipolar 1 disorder (Chronic 07/29/15) Persistent mood disorder (Chronic) a lot of contributing stressors Essential hypertension (Chronic) Medical History Hyperlipidemia, unspecified Surgical History History of colonoscopy History of orchiectomy, unilateral left Family History Mother , 73 of her chronic lung disease Depression Asthma Bipolar 1 disorder Chronic lung disease Father , age 61 from heart failure Kidney malignancy Heart disease Hyperlipidemia Hypertension Sister No problems noted. Sister No problems noted. Sister Heart disease Hyperlipidemia Hypertension Sister No problems noted. Sister No problems noted. Brother Heart disease Brother , age 48 fro Sudden Cardiac Heart disease Hyperlipidemia Hypertension Maternal Grandfather , 64 Heart disease Hyperlipidemia Hypertension Paternal Grandfather , 56 Heart disease Hyperlipidemia Hypertension Maternal Grandmother , 70 Asthma Stroke Paternal Grandmother , 80 No problems noted. Son No problems noted. Daughter No problems noted. Social History Smoking/Tobacco Use Status: Former Tobacco Use Quit Date: 08/03/18 Quit status: has quit before Smoking risk assessment performed?: Yes Alcohol Intake: never Drug use: Never Substance use type: does not use Caregiver/Support person: Yes () Household members: spouse Housing: other Details: camper when in [place]; friend's trailer [place] [facility] Number of Children: 2 number of grandchildren: 5 Communication Needs: Corrective Lenses Education Level: high school Do you need help understanding health information?: Always current occupation: retired from [employer] Pets and animals: Yes Pets and animals: dog(s) Sexually active: Yes Do you think of yourself as: straight/heterosexual Current gender identity: male What is your relationship status?: How often do you talk on the phone with friends or family?: once per week How often do you get together with friends or relatives?: twice per week How often do you attend confucianism or zoroastrian services?: 4 or more times per year Do you belong to any clubs or organized social groups?: no Panel score (0-1 are the most socially isolated patients): 3 What type of physical activity do you participate in: walking Duration: 15-30 minutes/day Frequency: does not exercise Eloisa/Islam: Church Special eloisa needs: No Agree to transfusion: No Seatbelt use: always Working smoke detector in home: Yes Fire extinguisher in home: Yes Do you feel safe at home: Yes Do you feel safe in your relationship?: Yes Additional Social history: is his caregiver. They live in a camper during the summer at [facility] and stay for free at a friend's trailer in [facility] during the winter. Met at daughter's house in [facility] where they frequently go for meals, socializing, etc. He has hearing aids he refuses to wear. Neither Sebas nor vaccinated against COVID 19. Limits ability to go to [place] or be considered for placement at community care homes. No savings to pay for LTC. Not on Cho[facility] for care yet. Discussed planning. Filled out COLST and health care agent paperwork. Meds Allergies and Home Medications Allergies Allergy/AdvReac Type Severity Reaction Status Date / Time bee pollen Allergy Severe swelling Verified 11/29/21 14:32 Home Medications Medication Instructions Recorded Confirmed Type magnesium oxide 400 mg PO DAILY 11/23/20 11/29/21 History melatonin 3 mg tablet 6 mg PO HS 11/23/20 11/29/21 History aspirin 81 mg chewable tablet 81 mg PO DAILY #30 tabs 11/25/20 11/29/21 Rx lorazepam 2 mg tablet (Ativan) 2 mg PO BID PRN #30 tabs 11/25/20 11/29/21 Rx tamsulosin 0.4 mg capsule 0.4 mg PO DAILY #90 caps 08/14/21 11/29/21 Rx bupropion HCl 100 mg tablet,12 hr 200 mg PO BID 10/22/21 11/29/21 History sustained-release folic acid 1 mg tablet 1 mg PO DAILY 10/22/21 11/29/21 History mirtazapine 15 mg tablet 45 mg PO HS 10/22/21 11/29/21 History olanzapine 10 mg disintegrating 10 mg PO BID 10/22/21 11/29/21 History tablet polyethylene glycol 3350 17 gram 17 g PO DAILY 10/22/21 11/29/21 History oral powder packet quetiapine 25 mg tablet 75 mg PO BID #90 tabs 10/22/21 11/29/21 Rx sennosides 8.6 mg-docusate sodium 2 tab-cap PO BID 10/22/21 11/23/21 History 50 mg tablet thiamine HCl (vitamin B1) 100 mg 100 mg PO DAILY 10/22/21 11/23/21 History tablet Results Imaging Imaging Studies: XR PORTABLE CHEST AP EXAM:? XR PORTABLE CHEST AP Date of Exam: 11/29/2021 CLINICAL HISTORY: ? sob. ? TECHNIQUE:? 2D digital imaging was performed. COMPARISON:? CR XR CHEST 1V IN DI DEPT from 11/23/2021 FINDINGS: Single AP portable view. Heart size is upper normal.? The mediastinum is not widened. There is platelike atelectasis in the right lung base.? Also mild increased markings in left lower lobe retrocardiac region.? No obvious pleural effusions.? Multiple healed right-sided rib fractures.? No pneumothorax. IMPRESSION: There is platelike atelectasis in the right lung base. Labs Result diagrams: 11/29/21 15:00 11/29/21 15:00 Labs: Laboratory Results - last 24 hr 11/29/21 11/29/21 11/29/21 15:00 15:00 15:04 WBC 24.92 H RBC 4.82 Hgb 14.8 Hct 43.7 MCV 91 MCH 30.7 MCHC 33.9 RDW 13.7 Plt Count 259 MPV 11.9 H Immature Gran % 0.0 Neutrophils % 82.0 Lymphocytes % 6.0 Monocytes % 12.0 Eosinophils % 0.0 Basophils % 0.0 Nucleated RBC % 0.0 Absolute Neutrophils 20.43 H Absolute Lymphocytes 1.50 Absolute Monocytes 2.99 H Absolute Eosinophils 0.00 Absolute Basophils 0.00 RBC Morphology Normal Sodium 140 Potassium 5.3 H Chloride 106 Carbon Dioxide 28.3 Anion Gap 5.7 BUN 13 Creatinine 1.2 Estimated GFR/1.73 m2 59.86 Glucose 122 H Calcium 9.6 Total Bilirubin 0.7 AST 41 H ALT 26 Alkaline Phosphatase 98 Troponin I < 50 Total Protein 7.5 Albumin 3.0 L Urine Color Urine Clarity Urine pH Ur Specific [place] Urine Protein Urine Ketones Urine Blood Urine Nitrite Urine Bilirubin Urine Urobilinogen Ur Leukocyte Esterase Urine RBC Urine WBC Ur Epithelial Cells Urine Crystals Urine Bacteria Urine Casts Urine Mucus Ur Culture Indicated? Urine Glucose COVID-19 Source Nasal/Nares SARS-CoV-2 (PCR) Negative 11/29/21 16:30 WBC RBC Hgb Hct MCV MCH MCHC RDW Plt Count MPV Immature Gran % Neutrophils % Lymphocytes % Monocytes % Eosinophils % Basophils % Nucleated RBC % Absolute Neutrophils Absolute Lymphocytes Absolute Monocytes Absolute Eosinophils Absolute Basophils RBC Morphology Sodium Potassium Chloride Carbon Dioxide Anion Gap BUN Creatinine Estimated GFR/1.73 m2 Glucose Calcium Total Bilirubin AST ALT Alkaline Phosphatase Troponin I Total Protein Albumin Urine Color Yellow Urine Clarity Clear Urine pH 7.0 Ur Specific [place] 1.010 Urine Protein Negative Urine Ketones Negative Urine Blood Negative Urine Nitrite Negative Urine Bilirubin Negative Urine Urobilinogen 0.2 Ur Leukocyte Esterase Moderate H Urine RBC 0-2 Urine WBC 10-20 H Ur Epithelial Cells Rare Urine Crystals Negative Urine Bacteria Rare Urine Casts 0-2 Hyaline Urine Mucus Trace Ur Culture Indicated? Yes Urine Glucose Negative COVID-19 Source SARS-CoV-2 (PCR) Last Vital Signs Temp 37.2 C 11/30/21 05:57 Pulse 65 11/30/21 05:57 Resp 20 11/30/21 05:57 BP 138/71 11/30/21 05:57 Pulse Ox 96 11/30/21 05:57
[2021-11-30 07:04] LABS: Absolute Monocyte Count 1.49 10^3/uL (0.1-0.8); Basophils % 0.3; Eosinophils % 1.9; HCT 40.9 % (40.0-50.0); HGB 13.9 g/dL (13.5-17.5); Immature Grans % 0.6; Lymphocytes % 10.3; MCV 91 fL (80-95); MPV 11.3 fL (8.0-11.0); Monocytes % 8.5; Neutrophils % 78.4; Platelet Count 229 10^3/uL (130-400); RBC 4.48 10^6/uL (4.36-5.78); RDW 14.1 % (11.8-14.1); RDW-SD 47.4 fL; WBC 17.51 10^3/uL (4.4-10.8)
[2021-11-30 07:16] LABS: Absolute Basophil Count 0.05 10^3/uL (0.0-0.2); Absolute Eosinophil Count 0.33 10^3/uL (0.0-0.7); Absolute Neutrophil Count 13.73 10^3/uL (1.2-6.7)
[2021-11-30 07:22] LABS: ALT 20 U/L (16-63); AST 14 U/L (15-37); Albumin 2.6 g/dL (3.4-5.0); Alkaline Phosphatase 86 U/L (46-116); Anion Gap 5.6 mmol/L (3-11); BUN 13 mg/dL (7-18); Bilirubin, Total 0.5 mg/dL (0.2-1.0); CO2 28.4 mmol/L (21.0-32.0); CREATININE 1.2 mg/dL (0.70-1.30); Calcium 8.8 mg/dL (8.5-10.1); Chloride 109 mmol/L (98-107); Estimated GFR 59.86 (mL/min/1.73m2); Glucose 100 mg/dL (74-106); Potassium 3.8 mmol/L (3.5-5.1); Sodium 143 mmol/L (136-145); Total Protein 6.4 g/dL (6.4-8.2)
[2021-11-30] MEDS: QUEtiapine 25 MG TAB 75 MG PO ×2 (08:01→19:53)
[2021-11-30] MEDS: Magnesium Oxide 400 MG TAB PO (08:01)
[2021-11-30] MEDS: Aspirin 81 MG CHEW PO (08:01)
[2021-11-30] MEDS: Thiamine 100 MG TAB PO (08:01)
[2021-11-30] MEDS: OLANZapine 10 MG TAB PO (08:01)
[2021-11-30] MEDS: Folic Acid 1 MG TAB PO (08:01)
[2021-11-30] MEDS: Tamsulosin 0.4 MG CAPCR PO (08:01)
[2021-11-30] MEDS: Acetaminophen 325 MG TAB PO (08:02)
[2021-11-30] MEDS: Normal Saline Flush 10 ML SYR IVP (08:02)
[2021-11-30] MEDS: buPROPion-CR 100 MG TABCR 200 MG PO ×2 (09:18→19:53)
--- NOTE | 2021-11-30 10:01 | INITIAL_ITS ---
- If Service Date Differs Date of service: 11/30/21 Time of Service: 10:01 Care Management Initial Assess REASON FOR HOSPITALIZATION:: RLL Pneumonia, fever, UTI PAST MEDICAL HISTORY/PAST SURGICAL HISTORY:: All Active Problems. Pneumonia (Acute). Hiccoughs (Acute). Fatigue (Acute). Acute UTI (Acute). Hard of hearing (Chronic). refuses to wear hearing aids. Health care proxy on file (Chronic). , Sisi Shepherd. daughter, Monica El, back-up. DNI (do not intubate) (Acute). DNR (do not resuscitate) (Acute). POLST (Physician Orders for Life-Sustaining Treatment) (Acute). Vaccine counseling (Acute). Dementia (Chronic). Palliative care patient (Acute). Incontinence of bowel (Acute). Incontinence of urine (Acute). Frequent falls (Acute). Carotid stenosis (Acute). Acute kidney injury (Acute). Discharge planning issues (Acute). DVT prophylaxis (Acute). Exposure to excessive natural heat (Acute). Atrial flutter by electrocardiogram (Acute). Altered mental status (Acute). Medically noncompliant (Acute). Confusion (Acute). Taking multiple medications for chronic disease (Acute). Ambulatory dysfunction (Acute). Bipolar disorder (Chronic). diagnosed in 1992. mood swings all his life. Leg cramps (Acute). Neural hearing loss, bilateral (Acute). Nasal turbinate hypertrophy (Acute). Congenital nasal septum deviation (Acute). Orthopnea (Acute). Breathlessness (Acute). Low back pain (Acute). Sleep disorder (Acute). Nasal obstruction (Acute). Diverticula of colon (Acute). Bipolar disorder, current episode manic severe with psychotic features (Acute). Tremor (Acute 06/14/17). Paralysis agitans (Acute). Lynn (Acute 01/06/17). Bipolar 1 disorder (Chronic 07/29/15). Persistent mood disorder (Chronic). a lot of contributing stressors. Essential hypertension (Chronic). Medical History. Hyperlipidemia, unspecified. Surgical History. History of colonoscopy. History of orchiectomy, unilateral. left PREVIOUS FUNCTIONAL STATUS/SOCIAL/FAMILY SUPPORTS:: Sebas lives with his Sisi in [facility]. They previously have wintered in [place]. They have a daughter Monica who lives in the area and a son who lives in [place]. They also have 6 grandchildren. CURRENT FUNCTIONAL STATUS:: Sebas was sitting up in his chair when CM met with him. He did not engage with CM. Per report, his WBC decreased today. He continues to be monitored closely. CM will continue to follow. ADVANCE DIRECTIVES:: COLST on file. Sisi listed as HCA. Has patient been provided with info about the portal/API?: Yes Did the patient sign up for the portal?: Yes (active) CODE STATUS:: DNR/DNI INSURANCE COVERAGE / FINANCIAL ISSUES:: Commercial MCR replacement- [employer] CURRENT HOME/COMMUNITY SERVICES/EQUIPMENT:: services ordered on a recent discharge. [facility] support. Palliative care. PRIMARY CARE PHYSICIAN:: Jose Eduardo Barboza POTENTIAL DISCHARGE NEEDS:: Evaluations for further needs, follow up appointments. PATIENT/FAMILY EDUCATION NEEDS:: Review discharge instructions and limitations, discussion of self care needs including ask me three. ANTICIPATED BARRIERS TO DISCHARGE:: Sebas's has expressed concern about caring for him at home. TRANSPORTATION:: Via private vehicle by family. PLAN:: Anticipate Sebas will return home when medically cleared. His will drive him home via private vehicle. He will follow up with his PCP and discharge plan of care. CM will continue to follow.
[2021-11-30] MEDS: Normal Saline 500 ML 30 ML IV (10:53)
--- NOTE | 2021-11-30 12:11 | PGE_ITS ---
Date of Service Date of service: 11/30/21 Time of Service: 12:11 Assessment and Plan Assessment and plan (1) Pneumonia: Status: Acute Assessment and plan: RLL plate-like atelectesis vs infiltrate Rocephin and Azithromycin initiated in the ED. + WBC elevation. Afebrile. Source of his recent onset of hiccoughs via diaphragmatic irritation? IS (2) Hiccoughs: Status: Acute Assessment and plan: Present this AM, but appeared to have improved later in the AM. Monitoring. Questionably d/t reflux? Will start famotadine. If persists, then try baclofen. (3) Acute UTI: Status: Acute Assessment and plan: + Leuk. Esterase and WBCs. Few bacteria. Urine cx pending. On Rocephin. (4) Dementia: Status: Chronic Assessment and plan: Maintain normal sleep-wake cycle. No current behavioral issues. (5) Bipolar disorder: Status: Chronic Assessment and plan: Cont Remeron and Seroquesl. Olanzapine stopped recently when EE'd and being held in the emergency department Qualifiers: Active/Remission status: currently active Current bipolar episode type: depressed Current episode severity: moderate Qualified Code(s): F31.32 - Bipolar disorder, current episode depressed, moderate Subjective Subjective Patient reports: nausea and afebrile; denies diarrhea or vomiting Interval history since last seen: Pt states he ate breakfast. Denies current pain, SOA. Has stated to staff this AM that he feels SOA. Exam Narrative Exam Narrative: General: alert, awake, staring forward. Sitting in chair. Answers in short sentences or not at all. HEENT: sclera clear. Respiratory: normal respiratory effort, clear to auscultation, no wheezing, rales or rhonchi Cardiac: regular rate, regular rhythm, S1S2 intact, no murmurs GI: abdomen soft, non-tender, non-distended Skin: no lesions, rashes or trauma appreciated Neuro: Staring forward intermittently responding and interactive at times not interactive and staring blankly, normal speech, cranial nerves intact full strength upper and lower extremities bilaterally; fine tremor Extremities: No peripheral edema Psych: Blunted affect Objective Last Vital Signs Temp 36.7 C 11/30/21 07:20 Pulse 72 11/30/21 07:20 Resp 14 11/30/21 07:20 BP 134/80 11/30/21 07:20 Pulse Ox 95 11/30/21 07:20 Laboratory Results - last 24 hr 11/29/21 11/29/21 11/29/21 15:00 15:00 15:04 WBC 24.92 H RBC 4.82 Hgb 14.8 Hct 43.7 MCV 91 MCH 30.7 MCHC 33.9 RDW 13.7 Plt Count 259 MPV 11.9 H Immature Gran % 0.0 Neutrophils % 82.0 Lymphocytes % 6.0 Monocytes % 12.0 Eosinophils % 0.0 Basophils % 0.0 Nucleated RBC % 0.0 Absolute Neutrophils 20.43 H Absolute Lymphocytes 1.50 Absolute Monocytes 2.99 H Absolute Eosinophils 0.00 Absolute Basophils 0.00 RBC Morphology Normal Sodium 140 Potassium 5.3 H Chloride 106 Carbon Dioxide 28.3 Anion Gap 5.7 BUN 13 Creatinine 1.2 Estimated GFR/1.73 m2 59.86 Glucose 122 H Calcium 9.6 Total Bilirubin 0.7 AST 41 H ALT 26 Alkaline Phosphatase 98 Troponin I < 50 Total Protein 7.5 Albumin 3.0 L Urine Color Urine Clarity Urine pH Ur Specific [place] Urine Protein Urine Ketones Urine Blood Urine Nitrite Urine Bilirubin Urine Urobilinogen Ur Leukocyte Esterase Urine RBC Urine WBC Ur Epithelial Cells Urine Crystals Urine Bacteria Urine Casts Urine Mucus Ur Culture Indicated? Urine Glucose COVID-19 Source Nasal/Nares SARS-CoV-2 (PCR) Negative 11/29/21 11/30/21 11/30/21 16:30 06:53 06:53 WBC 17.51 H RBC 4.48 Hgb 13.9 Hct 40.9 MCV 91 MCH 31.0 MCHC 34.0 RDW 14.1 Plt Count 229 MPV 11.3 H Immature Gran % 0.6 Neutrophils % 78.4 Lymphocytes % 10.3 Monocytes % 8.5 Eosinophils % 1.9 Basophils % 0.3 Nucleated RBC % 0.0 Absolute Neutrophils 13.73 H Absolute Lymphocytes 1.80 Absolute Monocytes 1.49 H Absolute Eosinophils 0.33 Absolute Basophils 0.05 RBC Morphology Sodium 143 Potassium 3.8 D Chloride 109 H Carbon Dioxide 28.4 Anion Gap 5.6 BUN 13 Creatinine 1.2 Estimated GFR/1.73 m2 59.86 Glucose 100 Calcium 8.8 Total Bilirubin 0.5 AST 14 L ALT 20 Alkaline Phosphatase 86 Troponin I Total Protein 6.4 Albumin 2.6 L Urine Color Yellow Urine Clarity Clear Urine pH 7.0 Ur Specific [place] 1.010 Urine Protein Negative Urine Ketones Negative Urine Blood Negative Urine Nitrite Negative Urine Bilirubin Negative Urine Urobilinogen 0.2 Ur Leukocyte Esterase Moderate H Urine RBC 0-2 Urine WBC 10-20 H Ur Epithelial Cells Rare Urine Crystals Negative Urine Bacteria Rare Urine Casts 0-2 Hyaline Urine Mucus Trace Ur Culture Indicated? Yes Urine Glucose Negative COVID-19 Source SARS-CoV-2 (PCR)
[2021-11-30] MEDS: Famotidine 20 MG TAB PO ×2 (13:03→19:53)
--- NOTE | 2021-11-30 14:26 | PHA.REVIEW ---
Pharmacy Admission Review - Admission Clinical Review (Last Reviewed 11/30/21 @ 06:43 by Chapito Coleman) Pneumonia (Acute) Hiccoughs (Acute) Fatigue (Acute) Acute UTI (Acute) bee pollen Allergy (Severe, Verified 11/29/21 14:32) swelling Resuscitation Status DNR/DNI Height 5 ft 10 in Weight 76.4 kg RLL PNEUMONIA, FEVER, UTI - Comments Comments/Follow Ups: watch Micro, Afebrile x24h, improving on Ceftriaxone/Azith day#2 - Renal Dosing Renal Dosing: BUN 13 mg/dL (7-18) 11/30/21 06:53 Creatinine 1.2 mg/dL (0.70-1.30) 11/30/21 06:53 Medications needing adjustments: Reviewed (CrCl~61ml/min-meds ok) - Anticoagulation Anticoagulation: Hgb 13.9 g/dL (13.5-17.5) 11/30/21 06:53 Hct 40.9 % (40.0-50.0) 11/30/21 06:53 Plt Count 229 10^3/uL (130-400) 11/30/21 06:53 Creatinine 1.2 mg/dL (0.70-1.30) 11/30/21 06:53 DVT Prophylaxis: Reviewed Medications: Enoxaparin - Opiate Usage Evaluate Pain Scale/Pains Meds: N/A - Relevant Labs Sodium 143 mmol/L (136-145) 11/30/21 06:53 Potassium 3.8 mmol/L (3.5-5.1) D 11/30/21 06:53 Chloride 109 mmol/L (98-107) H 11/30/21 06:53 Electrolytes, C-Reactive P, ESR: Reviewed - DM Control DM Control: Glucose 100 mg/dL (74-106) 11/30/21 06:53 Insulin Dosing: N/A - Heart Failure/WA Heart Failure/WA: Troponin I Cancelled 11/30/21 13:00 EF%, ANGELES's, B-Blockers, Diuretics: N/A - BP Control BP Control: Blood Pressure 101/67 Blood Pressure 134/80 Blood Pressure 138/71 If elevated: N/A - Qtc Review If Elevated: Intervened (QTC 520, wanted to try Thorazine for hiccups, potential QTC prolongation w/Zyprexa, Seroquel, Bupropion. Decided not to order Thorazine at this time) - IV to PO Switch IV Medications: Reviewed (IV Antibiotics) - Home Meds Home Med List reviewed: Reviewed (Cleaned up Home med list, coordinator said told her Zyprexa was stopped by other MD, checked VPMS for Lorazepam clarification; reduced dose) Antibiotic Activity - Pharmacy Antibiotic Review Pharmacy Antibiotic Activity: 48 hour review (WBC improving, no procal) - Antibiotic Information Antibiotic Review Info: Ceftriaxone/Azithromycin for CAP and Urine 10-50K, WBC improving, BC pending
[2021-11-30] MEDS: AZITHROMYCIN 500 MG in Normal Saline 250 ML 250 MG IVPB (14:53)
[2021-11-30] MEDS: cefTRIAXone 1 GM/50 ML BAG IVPB (16:35)
[2021-11-30] MEDS: Enoxaparin 40 MG/0.4 ML SYR SC (19:53)
[2021-11-30] MEDS: Mirtazapine 15 MG TAB 45 MG PO (21:03)
[2021-11-30] MEDS: Melatonin 3 MG TAB PO (21:03)
[2021-12-01 03:26] VITALS: BP 115/70; PULSE 59; RESP 18; TEMP 36.7; O2SAT 97
[2021-12-01 06:47] LABS: Platelet Count 257 10^3/uL (130-400)
[2021-12-01 06:56] LABS: Abs Immature Grans 0.07 10^3/uL (0.0-0.06); Absolute Basophil Count 0.05 10^3/uL (0.0-0.2); Absolute Eosinophil Count 0.46 10^3/uL (0.0-0.7); Absolute Lymphocyte Count 1.65 10^3/uL (1.2-3.4); Absolute Monocyte Count 0.95 10^3/uL (0.1-0.8); Absolute Neutrophil Count 8.58 10^3/uL (1.2-6.7); Basophils % 0.4; Eosinophils % 3.9; HGB 14.1 g/dL (13.5-17.5); Immature Grans % 0.6; MCH 30.5 pg (27.0-33.0); MCHC 32.8 % (32.0-36.0); MCV 93 fL (80-95); MPV 11.4 fL (8.0-11.0); Monocytes % 8.1; Platelet Count 257 10^3/uL (130-400); RBC 4.62 10^6/uL (4.36-5.78); RDW-SD 47.6 fL; WBC 11.76 10^3/uL (4.4-10.8)
[2021-12-01 08:18] VITALS: BP 132/77; PULSE 63; RESP 18; TEMP 36.7; O2SAT 96
[2021-12-01] MEDS: Folic Acid 1 MG TAB PO (09:15)
[2021-12-01] MEDS: QUEtiapine 25 MG TAB 75 MG PO ×2 (09:16→20:33)
[2021-12-01] MEDS: buPROPion-CR 100 MG TABCR 200 MG PO ×2 (09:16→20:33)
[2021-12-01] MEDS: Tamsulosin 0.4 MG CAPCR PO (09:16)
[2021-12-01] MEDS: Magnesium Oxide 400 MG TAB PO (09:16)
[2021-12-01] MEDS: Aspirin 81 MG CHEW PO (09:16)
[2021-12-01] MEDS: Thiamine 100 MG TAB PO (09:17)
[2021-12-01] MEDS: Famotidine 20 MG TAB PO ×2 (09:17→20:34)
[2021-12-01 11:21] VITALS: BP 121/80; PULSE 62; RESP 18; TEMP 36.3; O2SAT 98
--- NOTE | 2021-12-01 12:37 | CMPROGNOTE_ITS ---
- If Service Date Differs Date of service: 12/01/21 Time of Service: 12:37 Care Management Progress Note S/O: Sebas is being closely monitored and treated with IV abx day #2. He is afebrile and 98% on RA. Anticipate he will discharge home with resumption of [facility] RN services when medically ready per provider. A: 71 year old male admitted to [facility] on 11/30/21 for RLL Pneumonia, fever, UTI P: Anticipate, Sebas will return home with Resumption of [facility] RN services when medically cleared. His will drive him home via private vehicle. He will follow up with his PCP and discharge plan of care. CM will continue to follow.
--- NOTE | 2021-12-01 16:12 | DSE_ITS ---
Date of service: 12/01/21 Time of Service: 16:15 DS: Diagnosis Discharge Diagnosis (1) Pneumonia: Status: Acute (2) Hiccoughs: Status: Acute (3) Fatigue: Status: Acute (4) Acute UTI: Status: Acute (5) Dementia: Status: Chronic (6) Bipolar disorder: Status: Chronic Discharge Plan Disposition Patient Disposition: HOME Condition: Stable Discharge Details Reason For Visit: RLL Pneumonia, Fever, UTI Admit Date/Time: 11/29/21 18:42 Admit Provider: Chapito Coleman Attending Provider: Chapito Coleman Primary Care Provider: Jose Eduardo Barboza Hospital Course Hospital Course: This is a 71-year-old male patient with a history of bipolar disorder, dementia and Parkinson's-like symptoms on chronic psychiatric meds, recent psychiatric evaluation in the emergency department, currently tapering off of quetiapine and Ativan presented to the ED being brought in by for jitteriness, intractable hiccups and endorsing that he cannot get enough air.? History and physical limited by patient's mental status.? No fevers, no chills, no cough, no leg pain or swelling and no chest pain.? Patient was asleep when I approached him and he stated that.? I cannot really.? He was snoring when approached.? He was arousable with sternal rub he responded but did not speak to the nurse reported he was speaking clearly benefits before.? He does have waxing and mental clarity with his dementia.? Patient reportedly with intermittent difficulty arousing as discussed above. Interim evaluation by the ED provider: 71-year-old male history of bipolar disorder, dementia, brought in by for evaluation of intractable hiccups shortness of breath tremor, staring forward during most of examination and history, largely information has been supplemented by at bedside, endorsing that he cannot get enough air despite normal respiratory effort clear lungs bilaterally normal oxygenation; no chest pain no peripheral edema.? EKG showing left bundle branch block sinus rhythm unchanged from last EKG.? Normotensive afebrile.? No signs of trauma.? Patient does have fine tremor otherwise strength is intact no ataxia.? Currently ta pering from quetiapine and Ativan consider medication withdrawal versus electrolyte abnormality versus less likely ACS versus unlikely PE pneumothorax or pneumonia.? Must also consider primary psychiatric diagnosis versus progressive dementia.? Will obtain screening labs x-ray EKG.? Fluids benzodiazepine close reassessment 18:39 patient resting comfortably hiccups have resolved.? Bilateral external auditory canals clear.? No hypoxia no tachypnea.? Consider right lower lobe pneumonia with diaphragmatic irritation causing hiccups versus hiccups related to weaning from antipsychotics and benzos.? Also patient was found to have a questionable UTI.? Given a generalized fatigue and family comfort level patient be placed in observation for antibiotics reassessment? A definitive dx of pneumonia was not made. His urine culture grew gram + nory. His WBC count did normalize. He will continue on a course of Ceftin upon d/c; 500mg BID. He had not cough/sputum, fever/chills. His appetite remains poor; this has been ongoing according to his . Follow up with PCP in 1-2 weeks Home Meds and New Rx's Prescriptions: New cefuroxime axetil 500 mg tablet 500 mg PO BID Qty: 10 0RF Continued quetiapine 25 mg tablet 75 mg PO BID Qty: 90 3RF Rx Instructions: 11/29/21 pt is tapering to off by next week bupropion HCl 100 mg tablet sustained-release 12 hr 200 mg PO BID mirtazapine 15 mg tablet 45 mg PO HS polyethylene glycol 3350 17 gram powder in packet 17 g PO DAILY Label Comments: 17g daily in 8oz fluid sennosides-docusate sodium 8.6-50 mg tablet 2 tab-cap PO BID folic acid 1 mg tablet 1 mg PO DAILY thiamine HCl (vitamin B1) 100 mg tablet 100 mg PO DAILY tamsulosin 0.4 mg capsule 0.4 mg PO DAILY Qty: 90 3RF melatonin 3 mg Tablet 3 mg PO HS magnesium oxide 400 mg magnesium Tablet 400 mg PO DAILY aspirin 81 mg Tablet,Chewable 81 mg PO DAILY Qty: 30 0RF lorazepam [Ativan] 2 mg tablet 2 mg PO BID PRNQty: 30 0RF Discharge Instructions Instructions: Urinary Tract Infection in Men (DC) Stand Alone Forms: Nursing Discharge Form Referrals: Jose Eduardo Barboza MD [Primary Care Provider] - 12/04/21 9:20 am Activity:: Activity as Tolerated Equipment/Supplies:: No Equipment Needed Diet:: Resume usual diet Discharge Orders Discharge Orders: Discharge Order (Routine); Ordered 12/01/21 Ordered By: Jeremy Otero DS: Summary Time Spent with Patient providing and/or coordinating discharge services: Greater than 30 minutes Status at Discharge Functional status at discharge: independent ambulation Overall status at discharge: patient is progressing back to baseline Mental Status: other Speech and Movement: speech clear (verbalizes sparingly) Mood: other Affect: blunted Exam Narrative Exam Narrative: General: alert, awake, staring forward. Sitting in chair. Answers in short sentences or not at all. HEENT: sclera clear. Respiratory: normal respiratory effort, clear to auscultation, no wheezing, rales or rhonchi Cardiac: regular rate, regular rhythm, S1S2 intact, no murmurs GI: abdomen soft, non-tender, non-distended Skin: no lesions, rashes or trauma appreciated Neuro: Staring forward intermittently responding and interactive at times not interactive and staring blankly, normal speech, cranial nerves intact full strength upper and lower extremities bilaterally; fine tremor Extremities: No peripheral edema Psych: Blunted affect Psych Mental Status: other Speech and Movement: speech clear (verbalizes sparingly) Mood: other Affect: blunted DS: Data Vitals/I&O Vitals and I&O: Vital Signs Temperature 36.3 C L 12/01/21 11:21 Temperature Source Tympanic 12/01/21 11:21 Pulse 62 12/01/21 11:21 Pulse Rhythm Regular 12/01/21 12:00 Pulse 63 11/29/21 19:20 Respiratory Rate 18 12/01/21 11:21 Respiratory Effort 12/01/21 12:00 Respiratory Depth Normal 12/01/21 12:00 Respiratory Pattern Normal 12/01/21 12:00 Blood Pressure 121/80 12/01/21 11:21 Blood Pressure Mean 77 11/29/21 19:15 Blood Pressure Position Supine 11/29/21 14:24 Pulse Oximetry 98 12/01/21 11:21 Oxygen Delivery Method Room Air 12/01/21 11:21 Oxygen Flow Rate 0 12/01/21 11:21 Pain Level 0 12/01/21 03:26 Comment 11/30/21 07:20 Intake & Output 11/30/21 12/01/21 12/01/21 23:59 11:59 23:59 Intake Total 1500 / 1864.5 800 / 1850 1050 / 1850 Output Total 3100 / 3100 Balance 1500 / 564.5 -2300 / -1250 1050 / -1250 Weight 73.2 kg Intake: IV 300 / 364.5 250 / 250 Oral 1200 / 1500 800 / 1600 800 / 1600 Output: Urine 3100 / 3100 Other: Urine Color Yellow Pale Urine Appearance Clear Clear Clear Urine Odor None Comment incontinent of large amt of urine, placed a condom catheter Voiding Methods Diaper Incontinent Data Completed and Pending Labs on day of discharge: Labs from last 24 hours 12/01/21 12/01/21 06:10 06:05 WBC 11.76 H RBC 4.62 Hgb 14.1 Hct 43.0 MCV 93 MCH 30.5 MCHC 32.8 RDW 14.0 Plt Count 257 257 MPV 11.4 H Immature Gran % 0.6 Neutrophils % 73.0 Lymphocytes % 14.0 Monocytes % 8.1 Eosinophils % 3.9 Basophils % 0.4 Nucleated RBC % 0.0 Absolute Neutrophils 8.58 H Absolute Lymphocytes 1.65 Absolute Monocytes 0.95 H Absolute Eosinophils 0.46 Absolute Basophils 0.05 Preliminary micro results at discharge 11/29/21 16:30 Urine Culture - Preliminary Urine - Reflex from Ua Gram Positive Nory 11/29/21 16:45 Blood Culture - Preliminary Blood NO GROWTH 24 HOURS 11/29/21 16:20 Blood Culture - Preliminary Blood NO GROWTH 24 HOURS PFSH All Active Problems Pneumonia (Acute) Hiccoughs (Acute) Fatigue (Acute) Acute UTI (Acute) Hard of hearing (Chronic) refuses to wear hearing aids Health care proxy on file (Chronic) , Sisi Shepherd daughter, Monica El, back-up DNI (do not intubate) (Acute) DNR (do not resuscitate) (Acute) POLST (Physician Orders for Life-Sustaining Treatment) (Acute) Vaccine counseling (Acute) Dementia (Chronic) Palliative care patient (Acute) Incontinence of bowel (Acute) Incontinence of urine (Acute) Frequent falls (Acute) Carotid stenosis (Acute) Acute kidney injury (Acute) Discharge planning issues (Acute) DVT prophylaxis (Acute) Exposure to excessive natural heat (Acute) Atrial flutter by electrocardiogram (Acute) Altered mental status (Acute) Medically noncompliant (Acute) Confusion (Acute) Taking multiple medications for chronic disease (Acute) Ambulatory dysfunction (Acute) Bipolar disorder (Chronic) diagnosed in 1992 mood swings all his life Leg cramps (Acute) Neural hearing loss, bilateral (Acute) Nasal turbinate hypertrophy (Acute) Congenital nasal septum deviation (Acute) Orthopnea (Acute) Breathlessness (Acute) Low back pain (Acute) Sleep disorder (Acute) Nasal obstruction (Acute) Diverticula of colon (Acute) Bipolar disorder, current episode manic severe with psychotic features (Acute) Tremor (Acute 06/14/17) Paralysis agitans (Acute) Lynn (Acute 01/06/17) Bipolar 1 disorder (Chronic 07/29/15) Persistent mood disorder (Chronic) a lot of contributing stressors Essential hypertension (Chronic) Medical History Hyperlipidemia, unspecified Surgical History History of colonoscopy History of orchiectomy, unilateral left Family History Mother , 73 of her chronic lung disease Depression Asthma Bipolar 1 disorder Chronic lung disease Father , age 61 from heart failure Kidney malignancy Heart disease Hyperlipidemia Hypertension Sister No problems noted. Sister No problems noted. Sister Heart disease Hyperlipidemia Hypertension Sister No problems noted. Sister No problems noted. Brother Heart disease Brother , age 48 fro Sudden Cardiac Heart disease Hyperlipidemia Hypertension Maternal Grandfather , 64 Heart disease Hyperlipidemia Hypertension Paternal Grandfather , 56 Heart disease Hyperlipidemia Hypertension Maternal Grandmother , 70 Asthma Stroke Paternal Grandmother , 80 No problems noted. Son No problems noted. Daughter No problems noted. Social History Smoking/Tobacco Use Status: Former Tobacco Use Quit Date: 08/03/18 Quit status: has quit before Smoking risk assessment performed?: Yes Alcohol Intake: never Drug use: Never Substance use type: does not use Caregiver/Support person: Yes () Household members: spouse Housing: other Details: camper when in [place]; friend's trailer in [facility] Number of Children: 2 number of grandchildren: 5 Communication Needs: Corrective Lenses Education Level: high school Do you need help understanding health information?: Always current occupation: retired from [employer] Pets and animals: Yes Pets and animals: dog(s) Sexually active: Yes Do you think of yourself as: straight/heterosexual Current gender identity: male What is your relationship status?: How often do you talk on the phone with friends or family?: once per week How often do you get together with friends or relatives?: twice per week How often do you attend uatsdin or christian services?: 4 or more times per year Do you belong to any clubs or organized social groups?: no Panel score (0-1 are the most socially isolated patients): 3 What type of physical activity do you participate in: walking Duration: 15-30 minutes/day Frequency: does not exercise Eloisa/Faith: Mormon Special eloisa needs: No Agree to transfusion: No Seatbelt use: always Working smoke detector in home: Yes Fire extinguisher in home: Yes Do you feel safe at home: Yes Do you feel safe in your relationship?: Yes Additional Social history: is his caregiver. They live in a camper during the summer at [facility] and stay for free at a friend's trailer in [facility] during the winter. Met at daughter's house in [facility] where they frequently go for meals, socializing, etc. He has hearing aids he refuses to wear. Neither Sebas nor vaccinated against COVID 19. Limits ability to go to [place] or be considered for placement at community care homes. No savings to pay for LTC. Not on [facility] for care yet. Discussed planning. Filled out COLST and health care agent paperwork.
[2021-12-01 16:17] VITALS: BP 158/96; PULSE 79; RESP 18; TEMP 36.3; O2SAT 97
--- NOTE | 2021-12-01 16:21 | PDOC.CMDIS ---
- If Service Date Differs Date of service: 12/01/21 Time of Service: 16:21 LACE Index Scoring Tool - Questions: Length of Stay (in days): 2 Acuity (Admit via E.D.?): Yes Comorbidities: Dementia E.D. Visits: 3 - Answers: Total Score: 11 Risk of Readmission: High Risk Care Management Discharge Reason for Hospitalization: RLL Pneumonia, fever, UTI Discharge Plan: Sebas is discharged home via private vehicle with . He will follow up with his PCP on 12/04/21 and keep NPW with Neurology on 12/31/21, as scheduled. [facility]ume [facility] RN, add PT/OT/LOAN OPERATIONS MANAGER. Patient/Family Education Needs: Review discharge instructions, limitations, medications and plan to follow up with community providers. ask me three. Services Needed at Discharge: Home Health Care Services ([facility] RN add PT, OT, LOAN OPERATIONS MANAGER. CM notified HH)
--- NOTE | 2021-12-01 16:35 | PDOC.HHF2F_ITS ---
Home Health Certification Home Health Certification: 1. Encounter Date and Reason I certify that Sebas Shepherd was seen by Jeremy Otero MD on 12/01/21 and that I had a [id number] encounter with this patient that meets the physician face to face encounter requirements. 2. Clinical Findings Supporting Skilled Need and Homebound Status I certify that home health services are medically necessary, include either intermittent group home and/or physical/speech therapy, and that this patient is homebound in that absences from the home require considerable and taxing effort and are infrequent or of short duration, or are attributable to the need to receive medical care. [X] (a) Attached documentation from encounter provides clinical findings supporting skilled need and homebound status (including what assistance patient requires to leave the home). The encounter with the patient was in whole, or in part, for the following medical condition, which is the primary reason for home health care: RLL Pneumonia, Fever, UTI Usp:To monitor patient's medical condition, instruct on medication regimen and signs and symptoms to report. Patient is at risk of decompensation and/or adverse events due to recent hospitalization. Physical Therapy:To restor the patient's ability to ambulate independently and safely. Occupational Therapy: To restore his ability to perform ADL's/IADL's Speech Therapy: PLUG STITCHER: Assist with buttermaker helper planning and community resources. Homebound: 3. Certification and Authentication I certify that I composed the above information based on my clinical judgement relating to this patient's medical condition and, if applicable, clinical findings communicated to me by the NPP or inpatient physician who performed the Home Health Referral. All further orders will be obtained through Keri Barboza (Community Based Physician - PCP)
[2021-12-01 20:11] VITALS: BP 159/99; PULSE 82; RESP 19; TEMP 36.7; O2SAT 96
[2021-12-01] MEDS: Mirtazapine 15 MG TAB 45 MG PO (20:33)
[2021-12-01] MEDS: Melatonin 3 MG TAB PO (20:34)
[2021-12-01] MEDS: Enoxaparin 40 MG/0.4 ML SYR SC (20:34)
[2021-12-01 23:13] VITALS: BP 150/83; PULSE 78; RESP 16; TEMP 37.1; O2SAT 96
[2021-12-02 03:03] VITALS: BP 160/70; PULSE 65; RESP 19; TEMP 36.7; O2SAT 97
[2021-12-02 07:55] VITALS: BP 135/74; PULSE 81; RESP 20; TEMP 37.7; O2SAT 96
[2021-12-02 12:14] VITALS: BP 132/73; PULSE 80; RESP 18; TEMP 37.5; O2SAT 95
== END 2021-12-02 13:10 | disposition home or self-care (01) ==
LOC: ER 19:04 → MS 19:36
PROVIDERS: Family Medicine; Admitting Provider Family Medicine; Emergency Provider Emergency Medicine; PCP Family Medicine; Visit Provider Family Medicine
DX: J18.9 Pneumonia, unspecified organism (principal); N39.0 Urinary tract infection, site not specified; R06.6 Hiccough; Z66 Do not resuscitate; F31.32 Bipolar disorder, current episode depressed, moderate; Z79.899 Other long term (current) drug therapy; G31.83 Neurocognitive disorder with Lewy bodies; F02.80 Dementia in other diseases classified elsewhere, unspecified severity, without behavioral disturbance, psychotic disturbance, mood disturbance, and anxiety; R53.83 Other fatigue; R15.9 Full incontinence of feces; R32 Unspecified urinary incontinence; R29.6 Repeated falls; I65.29 Occlusion and stenosis of unspecified carotid artery; I10 Essential (primary) hypertension; I44.7 Left bundle-branch block, unspecified; Z20.822 Contact with and (suspected) exposure to COVID-19
CPT/HCPCS: 36415; 80053; 87040; 87077; 87635; 93005; 94640; 96361; 96365; 96366; 96375; 99284; 99285; J1650; 71045; 81003; 81015; 84484; 85025; 85049; 87086; 87186; 93010; 99217; 99220; 99225; G0378; J0456; J0696; J3490

== ENCOUNTER 2021-12-02 15:53 | Inpatient (IN) | payer MEDICARE, SELFPAY ==
[2021-12-02] VITALS (31 sets, daily range): BP systolic 129–167; BP diastolic 72–97; PULSE 69–98; RESP 16–34; TEMP 36–36.9; O2SAT 93–96
--- NOTE | 2021-12-02 16:00 | RT.EKG_ITS ---
APPROVED REPORT Exam: Resting ECG Reason for Exam: AMS Patient Location: E HR:92 bpm ECG Measurements Heart Rate 92 AXIS LA 209 P 61 QRSd 179 QRS -42 QT 416 T 119 QTc 515 Conclusion Sinus rhythm...normal P axis, V-rate 60- 99 Left bundle branch block.. ST elevation secondary to IVCD.
--- NOTE | 2021-12-02 16:00 | DI.RAD_ITS ---
Exam(s) XR PORTABLE CHEST AP EXAM: XR PORTABLE CHEST AP CLINICAL HISTORY: ams, hx pneumonia. TECHNIQUE: 2D digital imaging was performed. COMPARISON: CR,XR XR PORTABLE CHEST AP from 11/29/2021 FINDINGS: Single AP portable view. Heart size upper normal. Mediastinum is somewhat wide but this most probably related to the portable and slightly lordotic technique. Left lung remains clear. Slightly elevated right hemidiaphragm is again noted and there appears to b e some mild infiltrate in the right lung base now evident. Also slight blunting of the costophrenic angle. There are healed right rib fractures noted. No pneumothorax. IMPRESSION: Right lung base findings as above, probably small infiltrate and possibly small pleural effusion.Ther e are healed right rib fractures over this area again noted. DATA REPOSITORY: RADIATION DOSE DELIVERED: All CT scans at this facility use at least one of these dose optimization techniques: automated exposure control; mA and/or kV adjustment per patient size (includes targeted e xams where dose is matched to clinical indication); or iterative reconstruction.
--- NOTE | 2021-12-02 16:12 | ED.GENADUL_ITS ---
Discharge Plan Disposition Patient Disposition: [facility] INPATIENT Condition: Stable Discharge Details Clinical Impression: Altered mental status, Dementia, Pneumonia Admit Date/Time: 12/02/21 19:04 Admit Provider: Chapito Coleman Attending Provider: Chapito Coleman Primary Care Provider: Jose Eduardo Barboza ED Provider: Elsa Livingston Discharge Data Discharge Date/Time-TO BE ENTERED AT DEPARTURE: 12/02/21 20:48 Medical Decision Making <Elsa Livingston NP - Last Filed: 12/02/21 19:10> 71-year-old male recently discharged from the hospital today for pneumonia presents via private vehicle with his family reports that after he was discharged he refused to get out of the car at their house. He was complaining of foot pain and having what appeared to be a panic attack. He presents here nonresponsive, he does have his eyes open however he refuses to talk to staff. No signs of trauma. Does have a history of bipolar, hyperlipidemia, dementia, hypertension, sleep disorder and confusion., Atrial flutter. Basic labs ordered including EKG and troponin, chest x-ray and COVID testing. Will inform hospitalist the patient has returned and is unable to be discharged home. No signs of trauma at this time. However patient is refusing to answer or respond. However prior to my evaluation he did say do not move my legs because it was against his will. Unsure if this is medical or psychiatric. Care management notified to put in referrals for nursisng homes or rehab since patient just had a hospital stay. 1713: Called to the room by kennel staff member due to patient having episode of what miki ears to be hiccuping and having his eyes bugged out. He is staring off into space and hiccuping. He is incontinent of urine. states that this is happened in the last week. CBC shows leukocytosis mildly at 11.43, absolute neutrophils 7.4, AST 14, albumin 3.2 urinalysis shows moderate leukocytes 10-20 WBCs. Culture is pending at this time. Alcohol level less than 3.0, covid negative. 1831: Will page hospitalist. 1906: Discussed case with Dr. Mancuso whe agrees to accept patient for admission for observation and further care. Medical Records Medical records reviewed: Yes I reviewed the patient's medical records. Imaging Data Radiologic Study: Imaging: CT Scan Radiologist's impression: FINDINGS: Brain: No acute intracranial hemorrhage, mass-effect, midline shift, or extra-axial collection is seen. The oliver white matter differentiation appears preserved. There is symmetric parenchymal volume loss. Cerebral ventricles: The ventricular system and basilar cisterns appear appropriate in size and configuration. Paranasal sinuses: There is mucoperiosteal thickening in the left maxillary sinus. No air-fluid levels are seen. Mastoid air cells: The mastoid air cells appear well-aerated. Auditory system: The middle ear cavities appear clear. Orbital cavities: The globes and intraorbital structures appear grossly intact. Bones/joints: The bony calvarium appears intact. No depressed skull fra cture is seen. Soft tissues: No significant scalp lesion is seen. IMPRESSION: No acute intracranial abnormality seen Radiologic Study #2: Imaging: X-Ray Radiologist's impression: Imaging protocol: Radiologic exam of the chest. Views: 1 view. COMPARISON: XR PORTABLE CHEST AP 11/29/2021 2:51 PM FINDINGS: Limitations: Patient positioning is lordotic and rotated. Lungs: There is increased opacity through the right lower lung zone. Otherwise, no pulmonary consolidation is seen. Pleural spaces: No left-sided pleural effusion or pneumothorax is demonstrated. A right pleural effusion is not confidently excluded. Heart/Mediastinum: The heart is enlarged but stable in size. Diaphragm: There is elevation of the right hemidiaphragm. Bones/joints: The visualized bony structures appear grossly intact, as seen. IMPRESSION: 1. Elevation of the right hemidiaphragm with increased opacity through the right lower lung zone. Dependent atelectasis associated with the elevated hemidiaphragm is suspected; however, a small pleural effusion, aspiration, or pneumonia at the lung base could produce a similar appearance. Clinical correlation is recommended. 2. Lung berger otherwise clear. <Maude Vee DO - Last Filed: 12/05/21 21:36> 71-year-old male recently discharged from the hospital today for pneumonia presents via private vehicle with his family reports that after he was discharged he refused to get out of the car at their house. He was complaining of foot pain and having what appeared to be a panic attack. He presents here nonresponsive, he does have his eyes open however he refuses to talk to staff. No signs of trauma. Does have a history of bipolar, hyperlipidemia, dementia, hypertension, sleep disorder and confusion., Atrial flutter. Basic labs ordered including EKG and troponin, chest x-ray and COVID testing. Will inform hospitalist the patient has returned and is unable to be discharged home. No signs of trauma at this time. However patient is refusing to answer or respond. However prior to my evaluation he did say do not move my legs because it was against his will. Unsure if this is medical or psychiatric. Care management notified to put in referrals for nursisng homes or rehab since patient just had a hospital stay. 1713: Called to the room by kennel staff member due to patient having episode of what appears to be hiccuping and having his eyes bugged out. He is staring off into space and hiccuping. He is incontinent of urine. states that this is happened in the last week. CBC shows leukocytosis mildly at 11.43, absolute neutrophils 7.4, AST 14, albumin 3.2 urinalysis shows moderate leukocytes 10-20 WBCs. Culture is pending at this time. Alcohol level less than 3.0, covid negative. 1831: Will page hospitalist. 1906: Discussed case with Dr. Mancuso whe agrees to accept patient for admission for observation and further care. Dr. Mariusz Encarnacion did not evaluate this patient but was involved in discussion regarding disposition. HPI <Elsa Livingston NP - Last Filed: 12/02/21 19:10> General Mode of arrival: wheelchair . Date/Time Provider Initiated Documentation: 12/02/21 16:04 . Limitations to Documentation: altered mental status . Information obtained by: patient, family, RN notes reviewed and old records reviewed . HPI Narrative: 71-year-old male recently discharged from the hospital today for pneumonia presents via private vehicle with his family reports that after he was discharged he refused to get out of the car at their house. He was complaining of foot pain and having what appeared to be a panic attack. He presents here nonresponsive, he does have his eyes open however he refuses to talk to staff. No signs of trauma. Does have a history of bipolar, hyperlipidemia, dementia, hypertension, sleep disorder and confusion., Atrial flutter. Related Data Home Medications Medication Instructions Recorded Confirmed magnesium oxide 400 mg PO DAILY 11/23/20 12/04/21 melatonin 3 mg tablet 3 mg PO HS 11/23/20 12/04/21 aspirin 81 mg chewable tablet 81 mg PO DAILY #30 tabs 11/25/20 12/04/21 lorazepam 2 mg tablet (Ativan) 2 mg PO BID PRN #30 tabs 11/25/20 12/04/21 tamsulosin 0.4 mg capsule 0.4 mg PO DAILY #90 caps 08/14/21 12/04/21 mirtazapine 15 mg tablet 45 mg PO HS 10/22/21 12/04/21 polyethylene glycol 3350 17 gram 17 g PO DAILY 10/22/21 12/04/21 oral powder packet sennosides 8.6 mg-docusate sodium 2 tab-cap PO BID 10/22/21 12/04/21 50 mg tablet thiamine HCl (vitamin B1) 100 mg 100 mg PO DAILY 10/22/21 12/04/21 tablet cefuroxime axetil 500 mg tablet 500 mg PO BID #10 tabs 12/01/21 12/04/21 bupropion HCl 100 mg tablet,12 hr 200 mg PO BID #120 tabs 12/04/21 12/04/21 sustained-release folic acid 1 mg tablet 1 mg PO DAILY #90 tabs 12/04/21 12/04/21 Previous Rx's Medication Instructions Recorded aspirin 81 mg chewable tablet 81 mg PO DAILY #30 tabs 11/25/20 lorazepam 2 mg tablet (Ativan) 2 mg PO BID PRN #30 tabs 11/25/20 tamsulosin 0.4 mg capsule 0.4 mg PO DAILY #90 caps 08/14/21 cefuroxime axetil 500 mg tablet 500 mg PO BID #10 tabs 12/01/21 bupropion HCl 100 mg tablet,12 hr 200 mg PO BID #120 tabs 12/04/21 sustained-release folic acid 1 mg tablet 1 mg PO DAILY #90 tabs 12/04/21 Allergies Allergy/AdvReac Type Severity Reaction Status Date / Time bee pollen Allergy Severe swelling Verified 12/02/21 16:17 General SALINA: 2 Review of Systems <Elsa Livingston NP - Last Filed: 12/02/21 19:10> Unobtainable due to mental condition PFSH <Elsa Livingston NP - Last Filed: 12/02/21 19:10> All Active Problems (Updated 12/04/21 @ 00:09 by PARK GARRISON) Pneumonia (Acute) Hard of hearing (Chronic) refuses to wear hearing aids Health care proxy on file (Chronic) , Sisi Shepherd daughter, Monica El, back-up DNI (do not intubate) (Acute) DNR (do not resuscitate) (Acute) POLST (Physician Orders for Life-Sustaining Treatment) (Acute) Vaccine counseling (Acute) Dementia (Chronic) Palliative care patient (Acute) Incontinence of bowel (Acute) Incontinence of urine (Acute) Frequent falls (Acute) Carotid stenosis (Acute) Acute kidney injury (Acute) DVT prophylaxis (Acute) Exposure to excessive natural heat (Acute) Atrial flutter by electrocardiogram (Acute) Medically noncompliant (Acute) Confusion (Acute) Taking multiple medications for chronic disease (Acute) Ambulatory dysfunction (Acute) Bipolar disorder (Chronic) diagnosed in 1992 mood swings all his life Leg cramps (Acute) Neural hearing loss, bilateral (Acute) Nasal turbinate hypertrophy (Acute) Congenital nasal septum deviation (Acute) Orthopnea (Acute) Breathlessness (Acute) Low back pain (Acute) Sleep disorder (Acute) Nasal obstruction (Acute) Diverticula of colon (Acute) Tremor (Acute 06/14/17) Paralysis agitans (Acute) Lynn (Acute 01/06/17) Bipolar 1 disorder (Chronic 07/29/15) Persistent mood disorder (Chronic) a lot of contributing stressors Essential hypertension (Chronic) Medical History Hyperlipidemia, unspecified Surgical History History of colonoscopy History of orchiectomy, unilateral left Family History Mother , 73 of her chronic lung disease Depression Asthma Bipolar 1 disorder Chronic lung disease Father , age 61 from heart failure Kidney malignancy Heart disease Hyperlipidemia Hypertension Sister No problems noted. Sister No problems noted. Sister Heart disease Hyperlipidemia Hypertension Sister No problems noted. Sister No problems noted. Brother Heart disease Brother , age 48 fro Sudden Cardiac Heart disease Hyperlipidemia Hypertension Maternal Grandfather , 64 Heart disease Hyperlipidemia Hypertension Paternal Grandfather , 56 Heart disease Hyperlipidemia Hypertension Maternal Grandmother , 70 Asthma Stroke Paternal Grandmother , 80 No problems noted. Son No problems noted. Daughter No problems noted. Social History Smoking/Tobacco Use Status: Former Tobacco Use Quit Date: 08/03/18 Quit status: has quit before Smoking risk assessment performed?: Yes Alcohol Intake: never Drug use: Never Substance use type: does not use Caregiver/Support person: Yes () Household members: spouse Housing: other Details: camper when in [place]; friend's trailer [place] [facility] Number of Children: 2 number of grandchildren: 5 Communication Needs: Corrective Lenses Education Level: high school Do you need help understanding health information?: Always current occupation: retired from [employer] Pets and animals: Yes Pets and animals: dog(s) Sexually active: Yes Do you think of yourself as: straight/heterosexual Current gender identity: male What is your relationship status?: How often do you talk on the phone with friends or family?: once per week How often do you get together with friends or relatives?: twice per week How often do you attend caodaism or gnosticism services?: 4 or more times per year Do you belong to any clubs or organized social groups?: no Panel score (0-1 are the most socially isolated patients): 3 What type of physical activity do you participate in: walking Duration: 15-30 minutes/day Frequency: does not exercise Eloisa/Islam: Cheondoism Special eloisa needs: No Agree to transfusion: No Seatbelt use: always Working smoke detector in home: Yes Fire extinguisher in home: Yes Do you feel safe at home: Yes Do you feel safe in your relationship?: Yes Additional Social history: is his caregiver. They live in a camper during the summer at [facility] and stay for free at a friend's trailer in [facility] during the winter. Met at daughter's house in [facility] where they frequently go for meals, socializing, etc. He has hearing aids he refuses to wear. Neither Se[place] nor vaccinated against COVID 19. Limits ability to go to [facility] or be considered for placement at community care homes. No savings to pay for LTC. Not on [facility] for care yet. Discussed planning. Filled out [employer]ST and health care agent paperwork. Exam <Elsa Livingston NP - Last Filed: 12/02/21 19:10> Narrative Exam Narrative: Constitutional: Awake, nonverbal. Appears stated age. Normal body habitus. Head: Normocephalic, no trauma. Eyes: Pupils PERRL, Red reflex noted, EOM's intact. Eyelids symmetrical without lesions, discharge, or swelling. ENT: Bilateral TM's WNL, External ear normal to inspection, no mastoid TTP, swelling, or erythema, Nasal turbinates WNL, no nasal discharge. Normal dentition, Posterior pharynx WNL, no exudate. Chest: RRR, Normal S1, S2, distal pulses intact. Resp: Lungs clear to auscultation bilaterally, no wheezes, rales, or rhonchi. Abdomen: Soft, non-distended, Normoactive bowel sounds all 4 quads. Musculoskeletal: Unable to assess gait 5/5 strength to all four extremities. Skin: No suspicious rashes or lesions. Capillary refill less than 2 sec. Neurologic: No focal neurodeficits however patient is noncompliant with the exam. Hematologic/Lymphatic: No ecchymosis, no lymphadenopathy.
[2021-12-02 16:34] LABS: Abs Immature Grans 0.07 10^3/uL (0.0-0.06); Absolute Basophil Count 0.03 10^3/uL (0.0-0.2); Absolute Eosinophil Count 0.21 10^3/uL (0.0-0.7); Absolute Lymphocyte Count 1.84 10^3/uL (1.2-3.4); Absolute Monocyte Count 1.43 10^3/uL (0.1-0.8); Absolute Neutrophil Count 7.85 10^3/uL (1.2-6.7); Basophils % 0.3; Eosinophils % 1.8; HCT 43.9 % (40.0-50.0); HGB 14.7 g/dL (13.5-17.5); Immature Grans % 0.6; Lymphocytes % 16.1; MCH 30.4 pg (27.0-33.0); MCHC 33.5 % (32.0-36.0); MCV 91 fL (80-95); MPV 10.9 fL (8.0-11.0); Monocytes % 12.5; Neutrophils % 68.7; Platelet Count 334 10^3/uL (130-400); RBC 4.84 10^6/uL (4.36-5.78); RDW 13.6 % (11.8-14.1); RDW-SD 45.4 fL; WBC 11.43 10^3/uL (4.4-10.8)
[2021-12-02 17:21] LABS: ALT 18 U/L (16-63); AST 14 U/L (15-37); Albumin 3.2 g/dL (3.4-5.0); Alkaline Phosphatase 101 U/L (46-116); Anion Gap 9.8 mmol/L (3-11); BUN 10 mg/dL (7-18); Bilirubin, Total 0.5 mg/dL (0.2-1.0); CO2 23.2 mmol/L (21.0-32.0); CREATININE 1.3 mg/dL (0.70-1.30); Calcium 9.5 mg/dL (8.5-10.1); Chloride 105 mmol/L (98-107); Glucose 98 mg/dL (74-106); Potassium 3.8 mmol/L (3.5-5.1); Sodium 138 mmol/L (136-145); Total Protein 6.9 g/dL (6.4-8.2); Troponin I < 50 ng/L (<or=60)
[2021-12-02 17:26] LABS: ETHANOL BLOOD < 3.0 mg/dL (<10)
[2021-12-02 17:26] LABS: Source Nasal/Nares
--- NOTE | 2021-12-02 17:30 | DI.CT_ITS ---
Exam(s) CT HEAD WO EXAM: CT HEAD WO CLINICAL HISTORY: AMS. TECHNIQUE: Imaging Protocol: Axial computed tomography images with coronal and sagittal reformatted images were created and reviewed COMPARISON: CT CT HEAD WO from 11/23/2021 FINDINGS: Head is tilted towards the right. There are no skull fractures nor fluid in the visualized paranasal sinuses. There is no evidence of intracranial hemorrhage, mass effect, or shift of midline structures. There are no extra-axial fluid collections. The ventricles are not enlarged or shifted and there is no blo od within the ventricular system nor within the basal cisterns. IMPRESSION: No acute intracranial findings on this noninfused CT scan of the brain. RADIATION DOSE DELIVERED: 900.16mGy.cm Total DLP DATA REPOSITORY: All CT scans at this facility are submitted to the National Radiology Data Registry (NRDR) Dose Index Registry (DIR) with the [employer] (ACR). RADIATION OPTIMIZATION: All CT scans at this facility use at least one of these dose optimization te chniques: automated exposure control; mA and/or kV adjustment per patient size (includes targeted exa ms where dose is matched to clinical indication); or iterative reconstruction.
[2021-12-02] MEDS: LORazepam 20 MG/10 ML VIAL IVP (17:58)
[2021-12-02 18:04] LABS: COVID-19 PCR Negative (Negative)
[2021-12-02 18:14] LABS: Bilirubin Negative (Negative); Blood Negative (Negative); Clarity Clear (Clear); Glucose Negative (Negative); Ketones Negative (Negative); Leukocyte Esterase Moderate (Negative); Nitrite Negative (Negative); Urobilinogen 0.2 EU/dL (Up TO 0.2)
[2021-12-02 18:21] LABS: Bacteria Negative HPF (Negative); C & S Indicated? Yes; Casts Negative LPF (Negative); Crystals Negative HPF (Negative); Epithelial Cells Negative HPF (Negative); Mucus Negative (Negative); Other Cells Negative (Negative); RBC 0-2 HPF (0-2)
--- NOTE | 2021-12-02 18:36 | DI.VRAD_ITS ---
PROCEDURE INFORMATION: Exam: CT Head Without Contrast Exam date and time: 12/02/2021 6:07 PM Age: 71 years old Clinical indication: Other: AMS TECHNIQUE: Imaging protocol: Computed tomography of the head without contrast. Radiation optimization: All CT scans at this facility use at least one of these dose optimization techniques: automated exposure control; mA and/or kV adjustment per patient size (includes targeted exams where dose is matched to clinical indication); or iterative reconstruction. COMPARISON: CT HEAD WO 11/23/2021 2:28 PM FINDINGS: Brain: No acute intracranial hemorrhage, mass-effect, midline shift, or extra-axial collection is seen. The oliver white matter differentiation appears preserved. There is symmetric parenchymal volume loss. Cerebral ventricles: The ventricular system and basilar cisterns appear appropriate in size and configuration. Paranasal sinuses: There is mucoperiosteal thickening in the left maxillary sinus. No air-fluid levels are seen. Mastoid air cells: The mastoid air cells appear well-aerated. Auditory system: The middle ear cavities appear clear. Orbital cavities: The globes and intraorbital structures appear grossly intact. Bones/joints: The bony calvarium appears intact. No depressed skull fracture is seen. Soft tissues: No significant scalp lesion is seen. IMPRESSION: No acute intracranial abnormality seen. Dictated and Authenticated by: Gilmar Sampson MD. Ordering:CATRACHITA Hunter MD
[2021-12-02 18:45] LABS: *AMPHETAMINES SCREEN URINE Negative (Negative); *BARBITURATES SCREEN URINE Negative (Negative); *BENZODIAZEPINES SCREEN URINE Negative (Negative); Cannabinoids THC Negative (Negative); Cocaine Screen,Urine Negative (Negative); METHADONE URINE SCREEN Negative (Negative); OPIATES URINE SCREEN Negative (Negative)
[2021-12-02 18:54] LABS: Tricyclic Antidepressants Positive (Negative)
--- NOTE | 2021-12-02 19:08 | DI.VRAD_ITS ---
PROCEDURE INFORMATION: Exam: XR Chest Exam date and time: 12/02/2021 5:58 PM Age: 71 years old Clinical indication: Other: AMS, HX pneumonia; Additional info: AMS, , HX pneumonia TECHNIQUE: Imaging protocol: Radiologic exam of the chest. Views: 1 view. COMPARISON: XR PORTABLE CHEST AP 11/29/2021 2:51 PM FINDINGS: Limitations: Patient positioning is lordotic and rotated. Lungs: There is increased opacity through the right lower lung zone. Otherwise, no pulmonary consolidation is seen. Pleural spaces: No left-sided pleural effusion or pneumothorax is demonstrated. A right pleural effusion is not confidently excluded. Heart/Mediastinum: The heart is enlarged but stable in size. Diaphragm: There is elevation of the right hemidiaphragm. Bones/joints: The visualized bony structures appear grossly intact, as seen. IMPRESSION: 1. Elevation of the right hemidiaphragm with increased opacity through the right lower lung zone. Dependent atelectasis associated with the elevated hemidiaphragm is suspected; however, a small pleural effusion, aspiration, or pneumonia at the lung base could produce a similar appearance. Clinical correlation is recommended. 2. Lung berger otherwise clear. Dictated and Authenticated by: Gilmar Sampson MD. Ordering:CATRACHITA Hunter MD
[2021-12-02 19:32] LABS: Troponin I < 50 ng/L (<or=60)
--- NOTE | 2021-12-02 21:09 | HPE_ITS ---
Date of service: 12/02/21 Time of Service: 21:09 Assessment and Plan Assessment and plan (1) Altered mental status: Start date: 12/02/21 Status: Acute Assessment and plan: This is a 71-year-old gentleman who has failed discharge because of inability to get out of his car and having continued altered mental status with behavioral abnormalities most likely associate with his dementia but would need to consider whether his infection with possible pneumonia and UTI are affecting his behavior changes. He will continue on antibiotics by mouth and be admitted for observation and possible admission to the [facility] if he needs long-term placement but does not qualify for acute admission status with follow-up on infections. He is a DNR/DNI. (2) Dementia: Status: Chronic Assessment and plan: Progressive with patient now not being able to be cared for at home by family. Long-term placement is the best solution with adjustment of behavioral control medical therapy if possible. 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 (3) Pneumonia: Status: Acute Assessment and plan: Continued possible infiltrate right lower lobe with patient to continue on oral antibiotic therapy and follow-up imaging as indicated. He does have hiccups but no cough and does not appear to have significant fever or increase in WBCs. He may have a concomitant UTI and this needs follow-up as well. (4) Hiccoughs: Status: Acute Assessment and plan: Patient continues with mild symptoms and we could consider Thorazine though avoiding psychotropic medications with his history of Parkinson's-like syndrome may be best. He does not appear to be bothered by this problem at this time. (5) Bipolar disorder, current episode manic severe with psychotic features: Status: Chronic Assessment and plan: Continue outpatient medical therapy without change and long-term may need modification with his behavioral abnormalities. Placement would be best for this patient with his inability to be cared for at home by his family. History of Present Illness History of Present Illness Chief Complaint: AMS returned to ER Narrative: This is a 71-year-old male patient who was recently hospitalized for possible pneumonia discharged on oral antibiotics for pneumonia but on the way home patient refused to get out of his car once he reached his house. He was complaining of various physical entities including foot pain and appeared to be having increased panic. He does have behavioral abnormalities with dementia on medical therapy also for bipolar mood disorder. Patient presented to the ED upon return appearing to be unresponsive though at times he does appear to close his eyes and ignore examiners though not truly catatonic but resistant. He was in the state when I first admitted him with possible pneumonia when he had hiccups with the patient forcing his eyes closed rather than cooperating with exam. His multiple medical problems appear stable but he does have advancing altered mental status and confusion and the family cannot take care of him at [facility] at this time. Repeat labs revealed no new changes and the patient was admitted for reevaluation of his x-ray which may show pneumonia with aspiration though he does not have new symptoms. He also has advancing dementia and is not able to be cared for at home by his family. Patient is on cefuroxime and which will be continued for treatment of possible pneumonia but also he has staph coccus hemolyticus in his urine which needs follow-up on sensitivities. He does not appear to have systemic symptoms of infection. He has a DNR/DNI. ER evaluation: 71-year-old male recently discharged from the hospital today for pneumonia presents via private vehicle with his family reports that after he was discharged he refused to get out of the car at their house.? He was complaining of foot pain and having what appeared to be a panic attack.? He presents here nonresponsive, he does have his eyes open however he refuses to talk to staff.? No signs of trauma.? Does have a history of bipolar, hyperlipidemia, dementia, hypertension, sleep disorder and confusion.,? Atrial flutter. Basic labs ordered including EKG and troponin, chest x-ray and COVID testing.? Will inform hospitalist the patient has returned and is unable to be discharged home.? No signs of trauma at this time.? However patient is refusing to answer or respond.? However prior to my evaluation he did say do not move my legs stacia use it was against his will. Unsure if this is medical or psychiatric. Care management notified to put in referrals for nursisng homes or rehab since patient just had a hospital stay. 1713: Called to the room by director of staff development due to patient having episode of what appears to be hiccuping and having his eyes bugged out.? He is staring off into space and hiccuping.? He is incontinent of urine.? states that this is happened in the last week. D/C Summary 12/01/2021 -Patient's discharge was delayed yesterday d/t behaviorial issues in which he was allegedly catatonic. However, Sebas has answered to his name to the nurses and has been stood out of bed this morning however, when nurse's aid attempted to get him up to the chair for lunch, he refused and just wanted to stay in bed. For me he refuses to answer me or open his eyes although when I perform tactile stimulation such as rubbing his clavicle or sternum, he will wince and he will tighten his eyes shut tighter. I think that from medical standpoint he is doing ok from the pneumonia he was admitted for and he is off any supplemental oxygen w/ stable vital signs. He can finish out a course of oral antibiotics at home. His behvioral issues of closing up when he does not want to do something is apparently a buttermaker helper coping mechanism of his. I think that this can be dealt with on outpatient basis and does not require continued inpatient skilled medical/nursing treatment. Review of Systems Narrative: 13 point review of systems otherwise unrevealing or stable. PFS All Active Problems (Updated 12/03/21 @ 14:36 by Chapito Coleman) Pneumonia (Acute) Hiccoughs (Acute) Hard of hearing (Chronic) refuses to wear hearing aids Health care proxy on file (Chronic) , Sisi Shepherd daughter, Monica El, back-up DNI (do not intubate) (Acute) DNR (do not resuscitate) (Acute) POLST (Physician Orders for Life-Sustaining Treatment) (Acute) Vaccine counseling (Acute) Dementia (Chronic) Palliative care patient (Acute) Incontinence of bowel (Acute) Incontinence of urine (Acute) Frequent falls (Acute) Carotid stenosis (Acute) Acute kidney injury (Acute) Discharge planning issues (Acute) DVT prophylaxis (Acute) Exposure to excessive natural heat (Acute) Atrial flutter by electrocardiogram (Acute) Altered mental status (Acute) Medically noncompliant (Acute) Confusion (Acute) Taking multiple medications for chronic disease (Acute) Ambulatory dysfunction (Acute) Bipolar disorder (Chronic) diagnosed in 1992 mood swings all his life Leg cramps (Acute) Neural hearing loss, bilateral (Acute) Nasal turbinate hypertrophy (Acute) Congenital nasal septum deviation (Acute) Orthopnea (Acute) Breathlessness (Acute) Low back pain (Acute) Sleep disorder (Acute) Nasal obstruction (Acute) Diverticula of colon (Acute) Bipolar disorder, current episode manic severe with psychotic features (Chronic) Tremor (Acute 06/14/17) Paralysis agitans (Acute) Lynn (Acute 01/06/17) Bipolar 1 disorder (Chronic 07/29/15) Persistent mood disorder (Chronic) a lot of contributing stressors Essential hypertension (Chronic) Medical History Hyperlipidemia, unspecified Surgical History History of colonoscopy History of orchiectomy, unilateral left Family History Mother , 73 of her chronic lung disease Depression Asthma Bipolar 1 disorder Chronic lung disease Father , age 61 from heart failure Kidney malignancy Heart disease Hyperlipidemia Hypertension Sister No problems noted. Sister No problems noted. Sister Heart disease Hyperlipidemia Hypertension Sister No problems noted. Sister No problems noted. Brother Heart disease Brother , age 48 fro Sudden Cardiac Heart disease Hyperlipidemia Hypertension Maternal Grandfather , 64 Heart disease Hyperlipidemia Hypertension Paternal Grandfather , 56 Heart disease Hyperlipidemia Hypertension Maternal Grandmother , 70 Asthma Stroke Paternal Grandmother , 80 No problems noted. Son No problems noted. Daughter No problems noted. Social History Smoking/Tobacco Use Status: Former Tobacco Use Quit Date: 08/03/18 Quit status: has quit before Smoking risk assessment performed?: Yes Alcohol Intake: never Drug use: Never Substance use type: does not use Caregiver/Support person: Yes () Household members: spouse Housing: other Details: camper when in [place]; friend's trailer [place] [facility] Number of Children: 2 number of grandchildren: 5 Communication Needs: Corrective Lenses Education Level: high school Do you need help understanding health information?: Always current occupation: retired from [employer] Pets and animals: Yes Pets and animals: dog(s) Sexually active: Yes Do you think of yourself as: straight/heterosexual Current gender identity: male What is your relationship status?: How often do you talk on the phone with friends or family?: once per week How often do you get together with friends or relatives?: twice per week How often do you attend nondenominational or presybeterian services?: 4 or more times per year Do you belong to any clubs or organized social groups?: no Panel score (0-1 are the most socially isolated patients): 3 What type of physical activity do you participate in: walking Duration: 15-30 minutes/day Frequency: does not exercise Eloisa/Orthodox: Sabianism Special eloisa needs: No Agree to transfusion: No Seatbelt use: always Working smoke detector in home: Yes Fire extinguisher in home: Yes Do you feel safe at home: Yes Do you feel safe in your relationship?: Yes Additional Social history: is his caregiver. They live in a camper during the summer at [facility] and stay for free at a friend's trailer in [place] during the winter. Met at daughter's house in [facility] where they frequently go for meals, socializing, etc. He has hearing aids he refuses to wear. Neither Sebas nor vaccinated against COVID 19. Limits ability to go to [place] or be considered for placement at community care homes. No savings to pay for LTC. Not on [facility] for care yet. Discussed planning. Filled out [employer] and health care agent paperwork. Meds Allergies and Home Medications Allergies Allergy/AdvReac Type Severity Reaction Status Date / Time bee pollen Allergy Severe swelling Verified 12/02/21 16:17 Home Medications Medication Instructions Recorded Confirmed Type magnesium oxide 400 mg PO DAILY 11/23/20 12/02/21 History melatonin 3 mg tablet 3 mg PO HS 11/23/20 12/02/21 History aspirin 81 mg chewable tablet 81 mg PO DAILY #30 tabs 11/25/20 12/02/21 Rx lorazepam 2 mg tablet (Ativan) 2 mg PO BID PRN #30 tabs 11/25/20 12/02/21 Rx tamsulosin 0.4 mg capsule 0.4 mg PO DAILY #90 caps 08/14/21 12/02/21 Rx bupropion HCl 100 mg tablet,12 hr 200 mg PO BID 10/22/21 12/02/21 History sustained-release folic acid 1 mg tablet 1 mg PO DAILY 10/22/21 12/02/21 History mirtazapine 15 mg tablet 45 mg PO HS 10/22/21 12/02/21 History polyethylene glycol 3350 17 gram 17 g PO DAILY 10/22/21 12/02/21 History oral powder packet quetiapine 25 mg tablet 75 mg PO BID #90 tabs 10/22/21 12/02/21 Rx sennosides 8.6 mg-docusate sodium 2 tab-cap PO BID 10/22/21 12/02/21 History 50 mg tablet thiamine HCl (vitamin B1) 100 mg 100 mg PO DAILY 10/22/21 12/02/21 History tablet cefuroxime axetil 500 mg tablet 500 mg PO BID #10 tabs 12/01/21 12/02/21 Rx Exam Narrative Exam Narrative: General: Patient appears older than stated age.? Masklike facies, and minimal verbal interaction.? He is arousable with verbal stimulation and has opened his eyes but promptly closes.? He is not oriented to person, place or time.? HEENT: Normocephalic, eyes closed but when forced open, pupils equal and reactive to light symmetrically, extraocular movement intact and sclera anicteric.? Oropharynx with dry mucosa. Neck: Supple without JVD. Heart: Bradycardic with normal rhythm, no appreciable murmur or gallop. Chest: Symmetric with rhythmic hiccups which are mild. Lungs: Decreased aeration especially at right base. Faitr aeration without focal findings. Abdomen: Soft, nontender to palpation with no palpable hepatosplenomegaly.? Bowel sounds decreased. Extremities: Without clubbing, cyanosis or pitting edema.? No joint swelling.? Fair capillary refill. Neuro: Cranial nerves appear to be grossly intact with patient not answering questions. No focal motor deficits. Patient was not tested for cerebellar function lying in bed.? No Babinski. Skin: Normal color, warm and dry with rough texture. Psych: Flattened affect with expressionless face.? Mood appears depressed.? No abnormal thought processes manifested.? Remote and recent memory testing not possible. Results Imaging Imaging Studies: Exam date and time: 12/02/2021 5:58 PM Age: 71 years old Clinical indication: Other: AMS, HX pneumonia; Additional info: AMS, , HX pneumonia TECHNIQUE: Imaging protocol: Radiologic exam of the chest. Views: 1 view. COMPARISON: XR PORTABLE CHEST AP 11/29/2021 2:51 PM FINDINGS: Limitations: Patient positioning is lordotic and rotated. Lungs: There is increased opacity through the right lower lung zone. Otherwise, no pulmonary consolidation is seen. Pleural spaces: No left-sided pleural effusion or pneumothorax is demonstrated. A right pleural effusion is not confidently excluded. Heart/Mediastinum: The heart is enlarged but stable in size. Diaphragm: There is elevation of the right hemidiaphragm. Bones/joints: The visualized bony structures appear grossly intact, as seen. IMPRESSION: 1. Elevation of the right hemidiaphragm with increased opacity through the right lower lung zone. Dependent atelectasis associated with the elevated hemidiaphragm is suspected; however, a small pleural effusion, aspiration, or pneumonia at the lung base could produce a similar appearance. Clinical correlation is recommended. 2. Lung berger otherwise clear. Labs Result diagrams: 12/03/21 06:13 12/03/21 06:13 Labs: Laboratory Results - last 24 hr 12/02/21 12/02/21 12/02/21 16:26 16:26 16:26 WBC 11.43 H RBC 4.84 Hgb 14.7 Hct 43.9 MCV 91 MCH 30.4 MCHC 33.5 RDW 13.6 Plt Count 334 MPV 10.9 Immature Gran % 0.6 Neutrophils % 68.7 Lymphocytes % 16.1 Monocytes % 12.5 Eosinophils % 1.8 Basophils % 0.3 Nucleated RBC % 0.0 Absolute Neutrophils 7.85 H Absolute Lymphocytes 1.84 Absolute Monocytes 1.43 H Absolute Eosinophils 0.21 Absolute Basophils 0.03 Sodium 138 Potassium 3.8 Chloride 105 Carbon Dioxide 23.2 Anion Gap 9.8 BUN 10 Creatinine 1.3 Est GFR (CKD-EPI 2020) 59.10 Glucose 98 Calcium 9.5 Magnesium 2.0 Total Bilirubin 0.5 AST 14 L ALT 18 Alkaline Phosphatase 101 Troponin I < 50 Total Protein 6.9 Albumin 3.2 L Urine Color Urine Clarity Urine pH Ur Specific [place] Urine Protein Urine Ketones Urine Blood Urine Nitrite Urine Bilirubin Urine Urobilinogen Ur Leukocyte Esterase Urine RBC Urine WBC Ur Epithelial Cells Urine Crystals Urine Bacteria Urine Casts Urine Mucus Urine Other Ur Culture Indicated? Urine Glucose Urine Opiates Screen Urine Methadone Screen Ur Barbiturates Screen Ur Tricyclics Screen Ur Amphetamines Screen U Benzodiazepines Scrn Urine Cocaine Screen Ur THC Screen Ethyl Alcohol < 3.0 COVID-19 Source SARS-CoV-2 (PCR) 12/02/21 12/02/21 12/02/21 16:56 17:57 17:57 WBC RBC Hgb Hct MCV MCH MCHC RDW Plt Count MPV Immature Gran % Neutrophils % Lymphocytes % Monocytes % Eosinophils % Basophils % Nucleated RBC % Absolute Neutrophils Absolute Lymphocytes Absolute Monocytes Absolute Eosinophils Absolute Basophils Sodium Potassium Chloride Carbon Dioxide Anion Gap BUN Creatinine Est GFR (CKD-EPI 2020) Glucose Calcium Magnesium Total Bilirubin AST ALT Alkaline Phosphatase Troponin I Total Protein Albumin Urine Color Yellow Urine Clarity Clear Urine pH 6.0 Ur Specific [place] 1.010 Urine Protein Negative Urine Ketones Negative Urine Blood Negative Urine Nitrite Negative Urine Bilirubin Negative Urine Urobilinogen 0.2 Ur Leukocyte Esterase Moderate H Urine RBC 0-2 Urine WBC 10-20 H Ur Epithelial Cells Negative Urine Crystals Negative Urine Bacteria Negative Urine Casts Negative Urine Mucus Negative Urine Other Negative Ur Culture Indicated? Yes Urine Glucose Negative Urine Opiates Screen Negative Urine Methadone Screen Negative Ur Barbiturates Screen Negative Ur Tricyclics Screen Positive A Ur Amphetamines Screen Negative U Benzodiazepines Scrn Negative Urine Cocaine Screen Negative Ur THC Screen Negative Ethyl Alcohol COVID-19 Source Nasal/Nares SARS-CoV-2 (PCR) Negative 12/02/21 19:10 WBC RBC Hgb Hct MCV MCH MCHC RDW Plt Count MPV Immature Gran % Neutrophils % Lymphocytes % Monocytes % Eosinophils % Basophils % Nucleated RBC % Absolute Neutrophils Absolute Lymphocytes Absolute Monocytes Absolute Eosinophils Absolute Basophils Sodium Potassium Chloride Carbon Dioxide Anion Gap BUN Creatinine Est GFR (CKD-EPI 2020) Glucose Calcium Magnesium Total Bilirubin AST ALT Alkaline Phosphatase Troponin I < 50 Total Protein Albumin Urine Color Urine Clarity Urine pH Ur Specific [place] Urine Protein Urine Ketones Urine Blood Urine Nitrite Urine Bilirubin Urine Urobilinogen Ur Leukocyte Esterase Urine RBC Urine WBC Ur Epithelial Cells Urine Crystals Urine Bacteria Urine Casts Urine Mucus Urine Other Ur Culture Indicated? Urine Glucose Urine Opiates Screen Urine Methadone Screen Ur Barbiturates Screen Ur Tricyclics Screen Ur Amphetamines Screen U Benzodiazepines Scrn Urine Cocaine Screen Ur THC Screen Ethyl Alcohol COVID-19 Source SARS-CoV-2 (PCR) Last Vital Signs Temp 36 C L 12/02/21 21:00 Pulse 97 H 12/02/21 21:00 Resp 19 12/02/21 21:00 BP 159/93 H 12/02/21 21:00 Pulse Ox 93 12/02/21 21:00
[2021-12-02] MEDS: Mirtazapine 15 MG TAB 45 MG PO (21:57)
[2021-12-02] MEDS: Melatonin 3 MG TAB PO (21:57)
[2021-12-02] MEDS: Enoxaparin 40 MG/0.4 ML SYR SC (21:57)
[2021-12-02] MEDS: Normal Saline Flush 10 ML SYR IVP (21:57)
[2021-12-03 01:40] VITALS: BP 137/73; PULSE 76; RESP 19; TEMP 37.2; O2SAT 96
[2021-12-03 05:53] VITALS: BP 117/71; PULSE 65; RESP 18; TEMP 37; O2SAT 97
[2021-12-03 06:46] LABS: Abs Immature Grans 0.06 10^3/uL (0.0-0.06); Absolute Basophil Count 0.04 10^3/uL (0.0-0.2); Absolute Eosinophil Count 0.34 10^3/uL (0.0-0.7); Absolute Lymphocyte Count 1.76 10^3/uL (1.2-3.4); Absolute Monocyte Count 0.93 10^3/uL (0.1-0.8); Absolute Neutrophil Count 5.44 10^3/uL (1.2-6.7); Basophils % 0.5; HCT 40.3 % (40.0-50.0); HGB 13.8 g/dL (13.5-17.5); Immature Grans % 0.7; Lymphocytes % 20.5; MCH 30.9 pg (27.0-33.0); MCHC 34.2 % (32.0-36.0); MCV 90 fL (80-95); Monocytes % 10.9; Neutrophils % 63.4; Platelet Count 311 10^3/uL (130-400); RBC 4.47 10^6/uL (4.36-5.78); RDW 13.8 % (11.8-14.1); RDW-SD 46.1 fL; WBC 8.57 10^3/uL (4.4-10.8)
[2021-12-03 07:07] LABS: ALT 14 U/L (16-63); AST 14 U/L (15-37); Albumin 2.7 g/dL (3.4-5.0); Alkaline Phosphatase 83 U/L (46-116); BUN 11 mg/dL (7-18); Bilirubin, Total 0.4 mg/dL (0.2-1.0); CREATININE 1.3 mg/dL (0.70-1.30); Calcium 9.3 mg/dL (8.5-10.1); Chloride 108 mmol/L (98-107); Glucose 97 mg/dL (74-106); Potassium 3.7 mmol/L (3.5-5.1); Sodium 139 mmol/L (136-145); Total Protein 6.8 g/dL (6.4-8.2)
[2021-12-03 07:49] VITALS: BP 153/73; PULSE 71; RESP 17; TEMP 36.6; O2SAT 98
--- NOTE | 2021-12-03 08:27 | PDOC.CMIN ---
- If Service Date Differs Date of service: 12/03/21 Time of Service: 08:27 Care Management Initial Assess REASON FOR HOSPITALIZATION:: AMS, Pneumonia, Dementia PAST MEDICAL HISTORY/PAST SURGICAL HISTORY:: All Active Problems (Updated 12/03/21 @ 06:37 by Chapito Coleman). Pneumonia (Acute). Hiccoughs (Acute). Hard of hearing (Chronic). refuses to wear hearing aids. Health care proxy on file (Chronic). , Sisi Shepherd. daughter, Monica El, back-up. DNI (do not intubate) (Acute). DNR (do not resuscitate) (Acute). POLST (Physician Orders for Life-Sustaining Treatment) (Acute). Vaccine counseling (Acute). Dementia (Chronic). Palliative care patient (Acute). Incontinence of bowel (Acute). Incontinence of urine (Acute). Frequent falls (Acute). Carotid stenosis (Acute). Acute kidney injury (Acute). Discharge planning issues (Acute). DVT prophylaxis (Acute). Exposure to excessive natural heat (Acute). Atrial flutter by electrocardiogram (Acute). Altered mental status (Acute). Medically noncompliant (Acute). Confusion (Acute). Taking multiple medications for chronic disease (Acute). Ambulatory dysfunction (Acute). Bipolar disorder (Chronic). diagnosed in 1992. mood swings all his life. Leg cramps (Acute). Neural hearing loss, bilateral (Acute). Nasal turbinate hypertrophy (Acute). Congenital nasal septum deviation (Acute). Orthopnea (Acute). Breathlessness (Acute). Low back pain (Acute). Sleep disorder (Acute). Nasal obstruction (Acute). Diverticula of colon (Acute). Bipolar disorder, current episode manic severe with psychotic features (Acute). Tremor (Acute 06/14/17). Paralysis agitans (Acute). Lynn (Acute 01/06/17). Bipolar 1 disorder (Chronic 07/29/15). Persistent mood disorder (Chronic). a lot of contributing stressors. Essential hypertension (Chronic). Medical History . Hyperlipidemia, unspecified. Surgical History . History of colonoscopy. History of orchiectomy, unilateral. left CURRENT HOME/COMMUNITY SERVICES/EQUIPMENT:: Sees Dr. Brooks at [facility] PRIMARY CARE PHYSICIAN:: Dr. Barboza PATIENT/FAMILY EDUCATION NEEDS:: Review discharge instructions, limitations, medications and plan to follow up with community providers. ask me three. TRANSPORTATION:: Private vehicle with lift assist
[2021-12-03] MEDS: Cefuroxime 500 MG TAB PO (09:37)
[2021-12-03] MEDS: QUEtiapine 25 MG TAB 75 MG PO (09:37)
[2021-12-03] MEDS: buPROPion-CR 100 MG TABCR 200 MG PO (09:37)
[2021-12-03] MEDS: Thiamine 100 MG TAB PO (09:37)
[2021-12-03] MEDS: Folic Acid 1 MG TAB PO (09:37)
[2021-12-03] MEDS: Aspirin 81 MG CHEW PO (09:37)
[2021-12-03] MEDS: Magnesium Oxide 400 MG TAB PO (09:37)
[2021-12-03] MEDS: Tamsulosin 0.4 MG CAPCR PO (09:37)
--- NOTE | 2021-12-03 10:03 | W.PM.PROGNOT ---
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 Martin to get her input regarding the benefit of addition of Sinemet. (2) Bipolar disorder: Status: Chronic Assessment and plan: Currently taking Wellbutrin and Remeron and, Seroquel. I have asked case management to set up an interview with Dr. Brooks to get his input on the patient's treatment for his bipolar disorder and dementia. Qualifiers: Active/Remission status: currently active Current bipolar episode type: depressed Current episode severity: moderate Qualified Code(s): F31.32 - Bipolar disorder, current episode depressed, moderate (3) Dementia: Status: Chronic (4) Pneumonia: Status: Acute Assessment and plan: Patient continues to improve he does not require any supplemental oxygen and his leukocytosis has resolved and patient is now on oral antibiotics which can be completed as an outpatient. (5) Discharge planning issues: Status: Acute Assessment and plan: The issue to be determined is where Sebas can best be taken care of either at home with additional home health care to support his versus SNF. Patient was previously evaluated by physical therapy on 11/25/2021. The recommendation at that time was fdc facility versus long-term care unit based on his ability to participate and progress. We may need updated input from P.T. Subjective Subjective Interval history since last seen: Patient was returned to the emergency department yesterday evening explicitly because he would not get out of the car to enter his home. EMS was called and instead of assisting the patient into the home they brought him back to the emergency department. Patient had extensive work-up yesterday that included a repeat CBC which was unchanged, CMP that was unremarkable, a urinalysis that showed moderate leukocyte Estrace but negative for bacteria and nitrites and blood. Toxicology screen was positive for tricyclic's but otherwise negative for drugs of abuse. And a repeat SARS-CoV-2 PCR test that was negative. He also underwent a chest x-ray that showed a small residual infiltrate in the right lung base with a small pleural effusion as well as healed right rib fractures. And a noncontrast CT scan of the head that was unremarkable. Patient has a known history of bipolar disorder as well as a history of parkinsonian symptoms of rigidity and gait instability that was felt to be secondary to previous antipsychotic medications. While there may be some component of parkinsonian is him contributing to his mobility issues he also has some significant behavioral issues related to his underlying dementia and bipolar disorder. For example yesterday when he was told he was going home he became withdrawn and refused to communicate or cooperate. Whereas this morning when his nurse, Devon, who was had the patient for the last couple days when integrate the patient the patient got out of bed on his own I was able to stand to use a urinal to void and when offered breakfast willingly accepted breakfast. I had a discussion with day care aide, Dorina as well as with the patient's primary nurse Devon and I think the best avenue is to take him multidisciplinary approach including neurology consultation with Dr. Taylor Martin to evaluate his parkinsonian features and see if he may benefit from Sinemet. I have also asked for psychiatry consultation with Dr. Brooks from [facility] to discuss his medicines for his bipolar disorder. And dementia Exam Narrative Exam Narrative: Sebas is alert sitting up in his chair just having finished breakfast. He is oriented to person only. He appears to be in no distress he is able to converse with me but has poor insight as to why he was brought back to the hospital. When asked about his home situation he seems to be quite satisfied with his home situation but is willing to accept additional help. Lungs are clear to auscultation Heart is regular rate and rhythm Abdomen soft nondistended Extremities without edema Neurologic he has no facial asymmetry no dysarthric speech. There is some rigidity to his arms with passive abduction with some cogwheeling. Objective Last Vital Signs Temp 36.6 C 12/03/21 07:49 Pulse 71 12/03/21 07:49 Resp 17 12/03/21 07:49 BP 153/73 H 12/03/21 07:49 Pulse Ox 98 12/03/21 07:49 Laboratory Results - last 24 hr 12/02/21 12/02/21 12/02/21 16:26 16:26 16:26 WBC 11.43 H RBC 4.84 Hgb 14.7 Hct 43.9 MCV 91 MCH 30.4 MCHC 33.5 RDW 13.6 Plt Count 334 MPV 10.9 Immature Gran % 0.6 Neutrophils % 68.7 Lymphocytes % 16.1 Monocytes % 12.5 Eosinophils % 1.8 Basophils % 0.3 Nucleated RBC % 0.0 Absolute Neutrophils 7.85 H Absolute Lymphocytes 1.84 Absolute Monocytes 1.43 H Absolute Eosinophils 0.21 Absolute Basophils 0.03 Sodium 138 Potassium 3.8 Chloride 105 Carbon Dioxide 23.2 Anion Gap 9.8 BUN 10 Creatinine 1.3 Est GFR (CKD-EPI 2020) 59.10 Glucose 98 Calcium 9.5 Magnesium 2.0 Total Bilirubin 0.5 AST 14 L ALT 18 Alkaline Phosphatase 101 Troponin I < 50 Total Protein 6.9 Albumin 3.2 L Urine Color Urine Clarity Urine pH Ur Specific [place] Urine Protein Urine Ketones Urine Blood Urine Nitrite Urine Bilirubin Urine Urobilinogen Ur Leukocyte Esterase Urine RBC Urine WBC Ur Epithelial Cells Urine Crystals Urine Bacteria Urine Casts Urine Mucus Urine Other Ur Culture Indicated? Urine Glucose Urine Opiates Screen Urine Methadone Screen Ur Barbiturates Screen Ur Tricyclics Screen Ur Amphetamines Screen U Benzodiazepines Scrn Urine Cocaine Screen Ur THC Screen Ethyl Alcohol < 3.0 COVID-19 Source SARS-CoV-2 (PCR) 12/02/21 12/02/21 12/02/21 16:56 17:57 17:57 WBC RBC Hgb Hct MCV MCH MCHC RDW Plt Count MPV Immature Gran % Neutrophils % Lymphocytes % Monocytes % Eosinophils % Basophils % Nucleated RBC % Absolute Neutrophils Absolute Lymphocytes Absolute Monocytes Absolute Eosinophils Absolute Basophils Sodium Potassium Chloride Carbon Dioxide Anion Gap BUN Creatinine Est GFR (CKD-EPI 2020) Glucose Calcium Magnesium Total Bilirubin AST ALT Alkaline Phosphatase Troponin I Total Protein Albumin Urine Color Yellow Urine Clarity Clear Urine pH 6.0 Ur Specific [place] 1.010 Urine Protein Negative Urine Ketones Negative Urine Blood Negative Urine Nitrite Negative Urine Bilirubin Negative Urine Urobilinogen 0.2 Ur Leukocyte Esterase Moderate H Urine RBC 0-2 Urine WBC 10-20 H Ur Epithelial Cells Negative Urine Crystals Negative Urine Bacteria Negative Urine Casts Negative Urine Mucus Negative Urine Other Negative Ur Culture Indicated? Yes Urine Glucose Negative Urine Opiates Screen Negative Urine Methadone Screen Negative Ur Barbiturates Screen Negative Ur Tricyclics Screen Positive A Ur Amphetamines Screen Negative U Benzodiazepines Scrn Negative Urine Cocaine Screen Negative Ur THC Screen Negative Ethyl Alcohol COVID-19 Source Nasal/Nares SARS-CoV-2 (PCR) Negative 12/02/21 12/03/21 12/03/21 19:10 06:13 06:13 WBC 8.57 RBC 4.47 Hgb 13.8 Hct 40.3 MCV 90 MCH 30.9 MCHC 34.2 RDW 13.8 Plt Count 311 MPV 11.0 Immature Gran % 0.7 Neutrophils % 63.4 Lymphocytes % 20.5 Monocytes % 10.9 Eosinophils % 4.0 Basophils % 0.5 Nucleated RBC % 0.0 Absolute Neutrophils 5.44 Absolute Lymphocytes 1.76 Absolute Monocytes 0.93 H Absolute Eosinophils 0.34 Absolute Basophils 0.04 Sodium 139 Potassium 3.7 Chloride 108 H Carbon Dioxide 27.0 Anion Gap 4.0 BUN 11 Creatinine 1.3 Est GFR (CKD-EPI 2020) 59.10 Glucose 97 Calcium 9.3 Magnesium Total Bilirubin 0.4 AST 14 L ALT 14 L Alkaline Phosphatase 83 Troponin I < 50 Total Protein 6.8 Albumin 2.7 L Urine Color Urine Clarity Urine pH Ur Specific [place] Urine Protein Urine Ketones Urine Blood Urine Nitrite Urine Bilirubin Urine Urobilinogen Ur Leukocyte Esterase Urine RBC Urine WBC Ur Epithelial Cells Urine Crystals Urine Bacteria Urine Casts Urine Mucus Urine Other Ur Culture Indicated? Urine Glucose Urine Opiates Screen Urine Methadone Screen Ur Barbiturates Screen Ur Tricyclics Screen Ur Amphetamines Screen U Benzodiazepines Scrn Urine Cocaine Screen Ur THC Screen Ethyl Alcohol COVID-19 Source SARS-CoV-2 (PCR)
[2021-12-03 11:37] VITALS: BP 128/75; PULSE 61; RESP 17; TEMP 36.6; O2SAT 98
--- NOTE | 2021-12-03 13:36 | PT.INIE ---
Date of service: 12/03/21 Time of Service: 13:36 PT Notes Visit Reasons: Altered mental status,Pnuemonia,Dementia Physical Therapy Inpatient Initial Evaluation Date: 12/03/2021 Referring Doctor: Julianna Bland MD PT Orders: PT CONSULT: Safety consult for D/C Precautions: Fall. Standard. Activity as tolerated.? Pre-existing impaired safety awareness due to dementia. Patient Profile/Admitting Diagnosis:Jenae Mullen is a 79-year-old male who presented to the ED on 12/02/2021 due R foot pain which caused an episode of panic and altered mental status in patient and made him unable to get out of the car. Family decided to bring patient to the ED for immediate intervention. Patient is diagnosed with altered mental status and ongoing pneumonia that has been managed. referral to PT has been made to weigh in on safest discharge plan/ destination for patient. PMHX: All Active Problems?(Updated 12/03/21 @ 14:36 by Chapito Coleman) Pneumonia (Acute) Hiccoughs (Acute) Hard of hearing (Chronic) refuses to wear hearing aids Health care proxy on file (Chronic) , Sisi Shepherd daughter, Monica El, back-up DNI (do not intubate) (Acute) DNR (do not resuscitate) (Acute) POLST (Physician Orders for Life-Sustaining Treatment) (Acute) Vaccine counseling (Acute) Dementia (Chronic) Palliative care patient (Acute) Incontinence of bowel (Acute) Incontinence of urine (Acute) Frequent falls (Acute) Carotid stenosis (Acute) Acute kidney injury (Acute) Discharge planning issues (Acute) DVT prophylaxis (Acute) Exposure to excessive natural heat (Acute) Atrial flutter by electrocardiogram (Acute) Altered mental status (Acute) Medically noncompliant (Acute) Confusion (Acute) Taking multiple medications for chronic disease (Acute) Ambulatory dysfunction (Acute) Bipolar disorder (Chronic) diagnosed in 1992 mood swings all his life Leg cramps (Acute) Neural hearing loss, bilateral (Acute) Nasal turbinate hypertrophy (Acute) Congenital nasal septum deviation (Acute) Orthopnea (Acute) Breathlessness (Acute) Low back pain (Acute) Sleep disorder (Acute) Nasal obstruction (Acute) Diverticula of colon (Acute) Bipolar disorder, current episode manic severe with psychotic features (Chronic) Tremor (Acute 06/14/17) Paralysis agitans (Acute) Lynn (Acute 01/06/17) Bipolar 1 disorder (Chronic 07/29/15) Persistent mood disorder (Chronic) a lot of contributing stressors Essential hypertension (Chronic) Medical History? Hyperlipidemia, unspecified Surgical History? History of colonoscopy History of orchiectomy, unilateral left Social History/Home Situation: Lives with in a private home.? is primary caregiver as patient has dementia. Equipment Owned/DME: Provided with [facility] during last PT evaluation at the ED on 11/25/2021 Subjective: Agreed to PT consult. ? Complained of pain in his R foot when an attempt at ambulation using just the slipper sock was made. Placed shoes that brought in; patient stated that foot is a lot better and that he was able to walk well. Nurse Devon aware of patient's report. Objective: General Observation: Seated on chair. ? No lines present. Minimal swelling noted on the dorsum and lateral aspect of the ankle which was relayed to Nurse Osorio and to hospitalist Dr. Bland. Mental Status: Alert but disoriented x 3.? Able to follow single step commands with moderate verbal, tactile and visual cueing. Pain: Moderate pain in R ankle that resolved with donning of shoes Vital Signs: WNL as closely monitored by ED nursing staff ROM: Right Upper Extremity: ? Shoulder Flexion WFL. Shoulder abduction WFL. Elbow flexion WFL. Wrist flexion WFL. Functional opening and closing of hand WFL. Left Upper Extremity:? Shoulder Flexion WFL. Shoulder abduction WFL. Elbow flexion WFL. Wrist flexion WFL. Functional opening and closing of hand WFL. Right Lower Extremity: Hip flexion WFL. Hip abduction WFL. Knee flexion WFL. Ankle dorsiflexion WFL. Ankle plantarflexion WFL. Left Lower Extremity: Hip flexion WFL. Hip abduction WFL. Knee flexion WFL. Ankle dorsiflexion WFL. Ankle plantarflexion WFL. Strength: Right Upper Extremity: Shoulder flexors 4/5. Shoulder abductors 4/5. Elbow flexors 4/5. Elbow extensors 4/5. [employer] strong. Left Upper Extremity: Shoulder flexors 4/5. Shoulder abductors 4/5. Elbow flexors 4/5. Elbow extensors 4/5. [employer] strong. Right Lower Extremity: Hip flexors 4/5. Hip abductors 4/5. Knee flexors 4/5. Knee extensors 4-/5. Ankle dorsiflexors 4-/5. Ankle plantarflexors 4-/5. Left Lower Extremity: Hip flexors 4/5. Hip abductors 4/5. Knee flexors 4/5. Knee extensors 4-/5. Ankle dorsiflexors 4-/5. Ankle plantarflexors 4-/5. Bed Mobility/Transfers: Rolling stand by assist Supine to sit stand by assist Sit to supine stand by assist Sit to stand stand by assist Stand to sit stand by assist Gait: Instructed patient with level surface ambulation of 150 feet requiring stand by assist first with using FWW and then with no assitive device. Valentina decreased. Step height decreased. Step length decreased.? Moderate cues provided for walker management and directional changes. Balance: Static Sitting: Normal Dynamic Sitting: Normal Static Standing: Fair Dynamic Standing: Fair Special Tests: Mobility Limitations Standardized Measure [facility] 6 clicks Basic Mobility Inpatient Short Form: Raw Score: 22? CMS Score: 21% deficit ? ? 4-stage Balance test:? Unable to maintain all 4 positions?due to pre-existing balance and impaired safety awareness Informed Consent/Education:? Patient and were instructed in purpose of PT consult. Assessment: With shoes on, patient was able to ambulate without an assistive device requiring only stand by assist. Moderate verbal, visual, and tactile cueing needed to reduce fall risk and ensure safe technique.? Patient presents with clinical signs and symptoms consistent with current/admitting diagnoses that have resulted to mobility limitations, gait instability, generalized weakness, and overall ADL decline as demonstrated by the following impairment level findings: 1.? Decreased strength to B UE/LE major muscle groups 2.? Impaired sitting/standing balance 3.? Impaired safety awareness Impairments are contributing to the following functional limitations: 1.? Increased completion time for mobility ADL performance 2.? Increased risk for falls 3.? Difficulty with managing steps alone safely Patient is assessed as a [id number] moderate complexity based on the following: History: 71-year-old male with past medical history as indicated above Examination: Demonstrable impairment in strength, balance, and mobility level with underlying impairments and functional limitations as exhibited above as well as deficit score of 47% utilizing the [facility] Mobility Inpatient Short Form Presentation: Evolving Decision Makin moderate complexity Goals: N/A.? PT evaluation only. Plan of Care/Treatment Plan: N/A.? PT evaluation only. DISCHARGE RECOMMENDATIONS: [] ? Home with no services [] [X] ? Home with services. Home when medically cleared by hospitalist. Patient will benefit from home health PT services in order to progress mobility level using least restrictive assistive ambulatory device, assess home safety, identify additional equipment needs, and establish a functional maintenance program that will increase ability of patient to remain at home. [] ? Home with outpatient PT [] [] ? SNF for continued rehabilitation [] [] ? Senior [facility] Care [] [] ? SNF versus LTC based on ability to participate and progress [] TREATMENT CODE/TIME: 90740 x 20 minutes, 15786 x 28 minutes beginning at 13:36 PM. Thank you for the opportunity to participate in the care of this patient. Diana Goodrich PT, DPT, CLT [facility] [place], [place]
--- NOTE | 2021-12-03 14:20 | CHAPLAIN ---
Sebas was up in the chair when I visited. When I explained my role he told me he had no needs. He asked for Coke and I was able to get that for him.
--- NOTE | 2021-12-03 15:08 | DSE_ITS ---
Date of service: 12/03/21 Time of Service: 15:08 DS: Diagnosis Discharge Diagnosis (1) Altered mental status: Status: Resolved Asessment and Plan: his altered mental status seems to be behavioral related to his BPD and he fluctuates w/ his mood. Yesterday he had panic attack and his called because he felt short of breath and would not get out of the car. He has had no dyspnea or hypoxia since admission. he has had no trouble ambulating (2) Dementia: Status: Chronic (3) Pneumonia: Status: Acute Asessment and Plan: patient to complete his five days of cefuroxime axetil 500 mg bid and follow up w/ his PCP (4) Hiccoughs: Status: Resolved (5) Bipolar disorder, current episode manic severe with psychotic features: Status: Chronic Asessment and Plan: Patient was brought back to the hospital last night to the emergency department after the patient just been discharged from the hospital. Patient completed inpatient treatment for pneumonia and was discharged home on cefuroxime to complete his antibiotic treatment. Patient's had no hypoxemia or fever. His leukocytosis has resolved. However the patient refused to get out of the car once he reached home. However the patient has been cooperative with his nurse getting out of bed and getting dressed and ambulating independently. Physical therapy assessed him and felt that he did not need inpatient physical therapy treatment but recommended home PT. However per my observation this afternoon patient's been ambulating independently around the hallway with no loss of balance and no complaints of dizziness or lightheadedness and no shortness of breath. I am recommending that the family follow-up with his psychiatrist Dr. Dayron cadena and MELANIE. I asked care management to set up a telephone conversation between myself and Dr. Brooks however Dr. Brooks was not available today. This afternoon the patient got himself dressed and tried to elope from the hospital however the nursing staff were able to direct him back to his room while they summoned his family to the hospital. Patient is requesting to be discharged home and as the patient has no acute medical needs for inpatient hospitalization the patient can be safely discharged to the care of his family where he can be followed up as an outpatient by his psychiatrist Dr. Brooks. He also has an initial appointment with Dr. Taylor Martin on 12/31 to review his parkinsonian features. Discharge Plan Disposition Patient Disposition: HOME W/HOME HEALTH SERVICE Condition: Stable Discharge Details Reason For Visit: Altered mental status,Pnuemonia,Dementia Admit Date/Time: 12/02/21 19:04 Admit Provider: Chapito Coleman Attending Provider: Chapito Coleman Primary Care Provider: Jose Eduardo Barboza Home Meds and New Rx's Prescriptions: Continued quetiapine 25 mg tablet 75 mg PO BID Qty: 90 3RF Rx Instructions: 11/29/21 pt is tapering to off by next week bupropion HCl 100 mg tablet sustained-release 12 hr 200 mg PO BID mirtazapine 15 mg tablet 45 mg PO HS polyethylene glycol 3350 17 gram powder in packet 17 g PO DAILY Label Comments: 17g daily in 8oz fluid sennosides-docusate sodium 8.6-50 mg tablet 2 tab-cap PO BID folic acid 1 mg tablet 1 mg PO DAILY thiamine HCl (vitamin B1) 100 mg tablet 100 mg PO DAILY tamsulosin 0.4 mg capsule 0.4 mg PO DAILY Qty: 90 3RF melatonin 3 mg Tablet 3 mg PO HS magnesium oxide 400 mg magnesium Tablet 400 mg PO DAILY aspirin 81 mg Tablet,Chewable 81 mg PO DAILY Qty: 30 0RF lorazepam [Ativan] 2 mg tablet 2 mg PO BID PRNQty: 30 0RF cefuroxime axetil 500 mg tablet 500 mg PO BID Qty: 10 0RF Discharge Instructions Instructions: Bipolar Disorder (DC) Stand Alone Forms: Nursing Discharge Form Referrals: Jose Eduardo Barboza MD [Primary Care Provider] - 12/04/21 9:20 am Taylor Martin MD [ [facility] STAFF PHYSICIAN] - (Dr Milian's office will call you with an Appointment.) Activity:: Activity as Tolerated Equipment/Supplies:: No Equipment Needed Diet:: Normal Diet Discharge Orders Discharge Orders: Discharge Order (Routine); Ordered 12/03/21 Ordered By: London Bland DS: Summary Time Spent with Patient providing and/or coordinating discharge services: Less than 30 minutes Status at Discharge Functional status at discharge: independent ambulation Overall status at discharge: patient is back to baseline Mental Status: mental status grossly normal Speech and Movement: speech and movement normal Mood: anxious mood Affect: labile affect Exam Narrative Exam Narrative: Sebas is alert sitting up in his chair just having finished breakfast. He is oriented to person only. He appears to be in no distress he is able to converse with me but has poor insight as to why he was brought back to the hospital. When asked about his home situation he seems to be quite satisfied with his home situation but is willing to accept additional help. He is dressed and walking the hallway trying to find his way out of the hospital. Lungs are clear to auscultation Heart is regular rate and rhythm Abdomen soft nondistended Extremities without edema Neurologic he has no facial asymmetry no dysarthric speech. There is some rigidity to his arms with passive abduction with some cogwheeling. He has a wide based gait but appeared steady Psych Mental Status: mental status grossly normal Speech and Movement: speech and movement normal Mood: anxious mood Affect: labile affect DS: Data Vitals/I&O Vitals and I&O: Vital Signs Temperature 36.6 C 12/03/21 11:37 Temperature Source Tympanic 12/03/21 11:37 Pulse 61 12/03/21 11:37 Pulse Rhythm Regular 12/03/21 04:18 Pulse 81 12/02/21 20:31 Respiratory Rate 17 12/03/21 11:37 Respiratory Effort Incrsd Work of Breathing 12/03/21 04:18 Respiratory Depth Deep 12/03/21 04:18 Respiratory Pattern Irregular 12/03/21 04:18 Blood Pressure 128/75 12/03/21 11:37 Blood Pressure Mean 99 12/02/21 20:31 Blood Pressure Position Sitting 12/02/21 16:14 Pulse Oximetry 98 12/03/21 11:37 Oxygen Delivery Method Room Air 12/03/21 11:37 Oxygen Flow Rate 0 12/03/21 11:37 Pain Level 0 12/03/21 11:37 Intake & Output 12/02/21 12/03/21 12/03/21 23:59 11:59 23:59 Intake Total 170 / 170 810 / 1010 200 / 1010 Output Total 1500 / 1500 Balance 170 / 170 -690 / -490 200 / -490 Weight 53.07 kg 73.6 kg Intake: IV 20 / 20 10 / 10 Oral 150 / 150 800 / 1000 200 / 1000 Output: Urine 1500 / 1500 Other: Urine Color Yellow Yellow Yellow Urine Appearance Clear Clear Urine Odor Normal Normal Comment pT voided for the nurse. patient was heavily incont. Voiding Methods Toilet Urinal Diaper Diaper Incontinent Incontinent Data Completed and Pending Labs on day of discharge: Labs from last 24 hours 12/03/21 12/03/21 12/02/21 06:13 06:13 19:10 WBC 8.57 RBC 4.47 Hgb 13.8 Hct 40.3 MCV 90 MCH 30.9 MCHC 34.2 RDW 13.8 Plt Count 311 MPV 11.0 Immature Gran % 0.7 Neutrophils % 63.4 Lymphocytes % 20.5 Monocytes % 10.9 Eosinophils % 4.0 Basophils % 0.5 Nucleated RBC % 0.0 Absolute Neutrophils 5.44 Absolute Lymphocytes 1.76 Absolute Monocytes 0.93 H Absolute Eosinophils 0.34 Absolute Basophils 0.04 Sodium 139 Potassium 3.7 Chloride 108 H Carbon Dioxide 27.0 Anion Gap 4.0 BUN 11 Creatinine 1.3 Est GFR (CKD-EPI 2020) 59.10 Glucose 97 Calcium 9.3 Magnesium Total Bilirubin 0.4 AST 14 L ALT 14 L Alkaline Phosphatase 83 Troponin I < 50 Total Protein 6.8 Albumin 2.7 L Urine Color Urine Clarity Urine pH Ur Specific Sweetser Urine Protein Urine Ketones Urine Blood Urine Nitrite Urine Bilirubin Urine Urobilinogen Ur Leukocyte Esterase Urine RBC Urine WBC Ur Epithelial Cells Urine Crystals Urine Bacteria Urine Casts Urine Mucus Urine Other Ur Culture Indicated? Urine Glucose Urine Opiates Screen Urine Methadone Screen Ur Barbiturates Screen Ur Tricyclics Screen Ur Amphetamines Screen U Benzodiazepines Scrn Urine Cocaine Screen Ur THC Screen Ethyl Alcohol COVID-19 Source SARS-CoV-2 (PCR) 12/02/21 12/02/21 12/02/21 17:57 17:57 16:56 WBC RBC Hgb Hct MCV MCH MCHC RDW Plt Count MPV Immature Gran % Neutrophils % Lymphocytes % Monocytes % Eosinophils % Basophils % Nucleated RBC % Absolute Neutrophils Absolute Lymphocytes Absolute Monocytes Absolute Eosinophils Absolute Basophils Sodium Potassium Chloride Carbon Dioxide Anion Gap BUN Creatinine Est GFR (CKD-EPI 2020) Glucose Calcium Magnesium Total Bilirubin AST ALT Alkaline Phosphatase Troponin I Total Protein Albumin Urine Color Yellow Urine Clarity Clear Urine pH 6.0 Ur Specific Sweetser 1.010 Urine Protein Negative Urine Ketones Negative Urine Blood Negative Urine Nitrite Negative Urine Bilirubin Negative Urine Urobilinogen 0.2 Ur Leukocyte Esterase Moderate H Urine RBC 0-2 Urine WBC 10-20 H Ur Epithelial Cells Negative Urine Crystals Negative Urine Bacteria Negative Urine Casts Negative Urine Mucus Negative Urine Other Negative Ur Culture Indicated? Yes Urine Glucose Negative Urine Opiates Screen Negative Urine Methadone Screen Negative Ur Barbiturates Screen Negative Ur Tricyclics Screen Positive A Ur Amphetamines Screen Negative U Benzodiazepines Scrn Negative Urine Cocaine Screen Negative Ur THC Screen Negative Ethyl Alcohol COVID-19 Source Nasal/Nares SARS-CoV-2 (PCR) Negative 12/02/21 12/02/21 12/02/21 16:26 16:26 16:26 WBC 11.43 H RBC 4.84 Hgb 14.7 Hct 43.9 MCV 91 MCH 30.4 MCHC 33.5 RDW 13.6 Plt Count 334 MPV 10.9 Immature Gran % 0.6 Neutrophils % 68.7 Lymphocytes % 16.1 Monocytes % 12.5 Eosinophils % 1.8 Basophils % 0.3 Nucleated RBC % 0.0 Absolute Neutrophils 7.85 H Absolute Lymphocytes 1.84 Absolute Monocytes 1.43 H Absolute Eosinophils 0.21 Absolute Basophils 0.03 Sodium 138 Potassium 3.8 Chloride 105 Carbon Dioxide 23.2 Anion Gap 9.8 BUN 10 Creatinine 1.3 Est GFR (CKD-EPI 2020) 59.10 Glucose 98 Calcium 9.5 Magnesium 2.0 Total Bilirubin 0.5 AST 14 L ALT 18 Alkaline Phosphatase 101 Troponin I < 50 Total Protein 6.9 Albumin 3.2 L Urine Color Urine Clarity Urine pH Ur Specific Sweetser Urine Protein Urine Ketones Urine Blood Urine Nitrite Urine Bilirubin Urine Urobilinogen Ur Leukocyte Esterase Urine RBC Urine WBC Ur Epithelial Cells Urine Crystals Urine Bacteria Urine Casts Urine Mucus Urine Other Ur Culture Indicated? Urine Glucose Urine Opiates Screen Urine Methadone Screen Ur Barbiturates Screen Ur Tricyclics Screen Ur Amphetamines Screen U Benzodiazepines Scrn Urine Cocaine Screen Ur THC Screen Ethyl Alcohol < 3.0 COVID-19 Source SARS-CoV-2 (PCR) 12/02/21 17:57 Urine - Reflex from Urine Culture - Pending Preliminary micro results at discharge 12/02/21 17:57 Urine Culture - Pending Urine - Reflex from [facility] All Active Problems (Updated 12/03/21 @ 15:09 by London Bland MD) Pneumonia (Acute) Hard of hearing (Chronic) refuses to wear hearing aids Health care proxy on file (Chronic) , Sisi Shepherd daughter, Monica El, back-up DNI (do not intubate) (Acute) DNR (do not resuscitate) (Acute) POLST (Physician Orders for Life-Sustaining Treatment) (Acute) Vaccine counseling (Acute) Dementia (Chronic) Palliative care patient (Acute) Incontinence of bowel (Acute) Incontinence of urine (Acute) Frequent falls (Acute) Carotid stenosis (Acute) Acute kidney injury (Acute) Discharge planning issues (Acute) DVT prophylaxis (Acute) Exposure to excessive natural heat (Acute) Atrial flutter by electrocardiogram (Acute) Medically noncompliant (Acute) Confusion (Acute) Taking multiple medications for chronic disease (Acute) Ambulatory dysfunction (Acute) Bipolar disorder (Chronic) diagnosed in 1992 mood swings all his life Leg cramps (Acute) Neural hearing loss, bilateral (Acute) Nasal turbinate hypertrophy (Acute) Congenital nasal septum deviation (Acute) Orthopnea (Acute) Breathlessness (Acute) Low back pain (Acute) Sleep disorder (Acute) Nasal obstruction (Acute) Diverticula of colon (Acute) Bipolar disorder, current episode manic severe with psychotic features (Chronic) Tremor (Acute 06/14/17) Paralysis agitans (Acute) Lynn (Acute 01/06/17) Bipolar 1 disorder (Chronic 07/29/15) Persistent mood disorder (Chronic) a lot of contributing stressors Essential hypertension (Chronic) Medical History Hyperlipidemia, unspecified Surgical History History of colonoscopy History of orchiectomy, unilateral left Family History Mother , 73 of her chronic lung disease Depression Asthma Bipolar 1 disorder Chronic lung disease Father , age 61 from heart failure Kidney malignancy Heart disease Hyperlipidemia Hypertension Sister No problems noted. Sister No problems noted. Sister Heart disease Hyperlipidemia Hypertension Sister No problems noted. Sister No problems noted. Brother Heart disease Brother , age 48 fro Sudden Cardiac Heart disease Hyperlipidemia Hypertension Maternal Grandfather , 64 Heart disease Hyperlipidemia Hypertension Paternal Grandfather , 56 Heart disease Hyperlipidemia Hypertension Maternal Grandmother , 70 Asthma Stroke Paternal Grandmother , 80 No problems noted. Son No problems noted. Daughter No problems noted. Social History Smoking/Tobacco Use Status: Former Tobacco Use Quit Date: 08/03/18 Quit status: has quit before Smoking risk assessment performed?: Yes Alcohol Intake: never Drug use: Never Substance use type: does not use Caregiver/Support person: Yes () Household members: spouse Housing: other Details: camper when in [place]; friend's trailer in [facility] Number of Children: 2 number of grandchildren: 5 Communication Needs: Corrective Lenses Education Level: high school Do you need help understanding health information?: Always current occupation: retired from [employer] Pets and animals: Yes Pets and animals: dog(s) Sexually active: Yes Do you think of yourself as: straight/heterosexual Current gender identity: male What is your relationship status?: How often do you talk on the phone with friends or family?: once per week How often do you get together with friends or relatives?: twice per week How often do you attend mosque or judaism services?: 4 or more times per year Do you belong to any clubs or organized social groups?: no Panel score (0-1 are the most socially isolated patients): 3 What type of physical activity do you participate in: walking Duration: 15-30 minutes/day Frequency: does not exercise Eloisa/Scientology: Episcopalian Special eloisa needs: No Agree to transfusion: No Seatbelt use: always Working smoke detector in home: Yes Fire extinguisher in home: Yes Do you feel safe at home: Yes Do you feel safe in your relationship?: Yes Additional Social history: is his caregiver. They live in a camper during the summer at [facility] and stay for free at a friend's trailer in [facility] during the winter. Met at daughter's house in [facility] where they frequently go for meals, socializing, etc. He has hearing aids he refuses to wear. Neither Sebas nor vaccinated against COVID 19. Limits ability to go to [place] or be considered for placement at community care homes. No savings to pay for LTC. Not on [facility] for care yet. Discussed planning. Filled out COLST and health care agent paperwork.
--- NOTE | 2021-12-03 16:24 | PDOC.CMDIS ---
- If Service Date Differs Date of service: 12/03/21 Time of Service: 16:24 LACE Index Scoring Tool - Questions: Length of Stay (in days): 1 Acuity (Admit via E.D.?): Yes Comorbidities: Dementia E.D. Visits: 4 - Answers: Total Score: 11 Risk of Readmission: High Risk Care Management Discharge Reason for Hospitalization: AMS, Pneumonia, Dementia Discharge Plan: Sebas became agreeable and motivated to discharge home. eSbas transported via private vehicle with and his son. He will follow up with his PCP tomorrow and keep the NPW with Neurology on 12/31/21, as scheduled. Resumptoin of [facility] RN, add PT/OT/CERTIFIED MEDICATION AIDE services are ordered. delivery motorcycle driver planning is strongly encouraged. LILIAM provided patient's with LTM application and notified Chronic Care Coordination at [facility]. Additionally, patient and family have a meeting with [facility] tomorrow. Patient/Family Education Needs: Review discharge instructions, limitations and plan to follow up with community providers. ask me three. Services Needed at Discharge: Home Health Care Services ([facility] RN, PT, OT, CERTIFIED MEDICATION AIDE. CM notified [facility].)
== END 2021-12-03 15:15 | disposition home health service (06) | DRG 885 ==
LOC: ER 19:35 → MS 20:50
PROVIDERS: Admitting Provider Family Medicine; Emergency Provider Registered Nurse Emergency; PCP Family Medicine; Visit Provider Family Medicine
DX: F31.2 Bipolar disorder, current episode manic severe with psychotic features (principal); J18.9 Pneumonia, unspecified organism; F03.91 Unspecified dementia, unspecified severity, with behavioral disturbance; I48.92 Unspecified atrial flutter; G21.19 Other drug induced secondary parkinsonism; E78.5 Hyperlipidemia, unspecified; I10 Essential (primary) hypertension; Z66 Do not resuscitate; R15.9 Full incontinence of feces; R32 Unspecified urinary incontinence; R29.6 Repeated falls; I65.29 Occlusion and stenosis of unspecified carotid artery; Z79.899 Other long term (current) drug therapy; M54.50 Low back pain, unspecified; K57.30 Diverticulosis of large intestine without perforation or abscess without bleeding; Z87.891 Personal history of nicotine dependence; R06.6 Hiccough
CPT/HCPCS: 36415; 36416; 80053; 80307; 82962; 87635; 93005; 96374; 97162; 97530; 99285; J1650; 70450; 71045; 80320; 81003; 81015; 83735; 84484; 85025; 87086; 93010; 99223; 99238; J3490

== ENCOUNTER → 2021-12-31 07:59 | Outpatient (BNVA) | payer MEDICARE, SELFPAY | PROVIDERS: PCP Family Medicine; Referring Provider Family Medicine; Visit Provider Nurse Practitioner Adult Health | DX: R25.8 Other abnormal involuntary movements (principal); I10 Essential (primary) hypertension; R41.89 Other symptoms and signs involving cognitive functions and awareness | CPT/HCPCS: 99205; 99215 ==

== ENCOUNTER 2022-01-29 16:58 | Emergency (ER) | payer MEDICARE, SELFPAY ==
[2022-01-29 17:01] VITALS: BP 143/82; PULSE 81; RESP 18; TEMP 36.8; O2SAT 96
--- NOTE | 2022-01-29 17:30 | DI.CT_ITS ---
Exam(s) CT HEAD CERVICAL SPINE WO EXAM: CT HEAD CERVICAL SPINE WO CLINICAL HISTORY: fall, [place],. TECHNIQUE: Imaging Protocol: Axial computed tomography images with coronal and sagittal reformatted images were created and reviewed COMPARISON: CT CT HEAD WO from 12/02/2021 FINDINGS: CT Head: Ventricles and Extra axial spaces: Normal in size and morphology for the patient's age. Hemorrhage: None. Cerebral parenchyma: There is no acute territorial infarct. There are areas of decreased attenuation in the white matter most consistent with small vessel ischemic disease. Midline shift: None. Brainstem/Cerebellum: Normal. Calvarium: Normal. Visualized Paranasal sinuses/Mastoids: There is mucosal thickening in the left maxillary sinus. The remaining visualized paranasal sinuses and mastoid air cells are clear. Soft Tissues: Unremarkable. CT Cervical Spine: Bones: No acute fracture or subluxation. 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 Soft Tissues: Unremarkable. Lung Apices: Clear. IMPRESSION: 1. No acute intracranial process. 2. No acute fracture or subluxation in the cervical spine. RADIATION DOSE DELIVERED: 1,538.09mGy.cm Total DLP DATA REPOSITORY: All CT scans at this facility are submitted to the National Radiology Data Registry (NRDR) Dose Index Registry (DIR) with the [employer] (ACR). RADIATION OPTIMIZATION: All CT scans at this facility use at least one of these dose optimization te chniques: automated exposure control; mA and/or kV adjustment per patient size (includes targeted exa ms where dose is matched to clinical indication); or iterative reconstruction.
--- NOTE | 2022-01-29 18:53 | DI.VRAD_ITS ---
PROCEDURE INFORMATION: Exam: CT Head Without Contrast Exam date and time: 01/29/2022 6:14 PM Age: 71 years old Clinical indication: Injury or trauma; Fall; Blunt trauma (contusions or hematomas) TECHNIQUE: Imaging protocol: Computed tomography of the head without contrast. COMPARISON: CT HEAD WO 12/02/2021 6:07 PM FINDINGS: Brain: There is no acute intracranial hemorrhage, mass effect or midline shift. There is no large acute territorial cerebral infarct. Cerebral ventricles: No ventriculomegaly. Paranasal sinuses: There is mild mucosal thickening in the left maxillary sinus. Mastoid air cells: The mastoid air cells are unremarkable. Bones/joints: Unremarkable. No acute fracture. Soft tissues: There is mild subcutaneous edema in the right zygomatic region. IMPRESSION: 1. No acute intracranial hemorrhage, mass effect or midline shift. 2. Mild subcutaneous edema in the right zygomatic region without underlying fracture. PROCEDURE INFORMATION: Exam: CT Cervical Spine Without Contrast Exam date and time: 01/29/2022 6:14 PM Age: 71 years old Clinical indication: Injury or trauma; Fall; Blunt trauma (contusions or hematomas) TECHNIQUE: Imaging protocol: Computed tomography of the cervical spine without contrast. COMPARISON: CT HEAD WO 12/02/2021 6:07 PM FINDINGS: Bones/joints: No acute fracture. Normal alignment. No significant disc protrusion. No severe spinal canal stenosis. Lungs: Lung apices are normal. Soft tissues: Unremarkable. IMPRESSION: No acute findings. Dictated and Authenticated by: Radha Braxton MD. Ordering:SHWETA Langford MD
--- NOTE | 2022-01-29 19:05 | W.ED.GENAD ---
Discharge Plan Disposition Patient Disposition: HOME Condition: Stable Discharge Details Clinical Impression: Head injury, Facial laceration Primary Care Provider: Jose Eduardo Barboza ED Provider: Anastasiya Rodriguez Home Meds and New Rx's Prescriptions: Continued bupropion HCl 100 mg tablet sustained-release 12 hr 200 mg PO BID Qty: 120 2RF folic acid 1 mg tablet 1 mg PO DAILY Qty: 90 3RF albuterol sulfate 90 mcg/actuation aerosol powdr breath activated 2 inh inhalation Q6H PRN olanzapine [Zyprexa] 7.5 mg tablet 7.5 mg PO QHS mirtazapine 15 mg tablet 45 mg PO HS polyethylene glycol 3350 17 gram powder in packet 17 g PO DAILY Label Comments: 17g daily in 8oz fluid sennosides-docusate sodium 8.6-50 mg tablet 2 tab-cap PO BID thiamine HCl (vitamin B1) 100 mg tablet 100 mg PO DAILY tamsulosin 0.4 mg capsule 0.4 mg PO DAILY Qty: 90 3RF melatonin 3 mg Tablet 3 mg PO HS aspirin 81 mg Tablet,Chewable 81 mg PO DAILY Qty: 30 0RF lorazepam [Ativan] 2 mg tablet 2 mg PO BID PRNQty: 30 0RF Discharge Instructions Instructions: Head Injury (ED), Facial Laceration (ED) Additional Instructions: Keep wound clean and dry Removal in 7 days With vomiting, worsening headache, or any new or worsening complaints, return to the emergency department for reassessment Referrals: Jose Eduardo Barboza MD [Primary Care Provider] - Discharge Data Discharge Date/Time-TO BE ENTERED AT DEPARTURE: 01/29/22 19:58 Medical Decision Making Patient appears well, he tolerated suture placement without incident He is aware that the tissue may not be viable and he will need outpatient reassessment No indication for antibiotics GCS 15 Tetanus up-to-date CT head and cervical spine do not show evidence of acute abnormality per radiology interpretation my review Ambulatory with steady gait Return precautions discussed with patient and expressed understanding Medical Records Medical records reviewed: Yes I reviewed the patient's medical records. Lab Data Lab results reviewed: Yes I reviewed the patient's lab results. HPI General Date/Time Provider Initiated Documentation: 01/29/22 17:17. HPI Narrative: This 71-year-old gentleman was walking down a hill when he slipped, landing on The right side of his face. There was no loss of consciousness or additional injury per patient. Denies any nausea or vomiting. He denies any relation. He denies any neck pain or strength or sensation change. He denies any weakness or dizziness. And states he simply lost his balance, secondary to the steepness of the hill. Related Data Home Medications Medication Instructions Recorded Confirmed melatonin 3 mg tablet 3 mg PO HS 11/23/20 01/29/22 aspirin 81 mg chewable tablet 81 mg PO DAILY #30 tabs 11/25/20 01/29/22 lorazepam 2 mg tablet (Ativan) 2 mg PO BID PRN #30 tabs 11/25/20 01/29/22 tamsulosin 0.4 mg capsule 0.4 mg PO DAILY #90 caps 08/14/21 01/29/22 mirtazapine 15 mg tablet 45 mg PO HS 10/22/21 01/29/22 polyethylene glycol 3350 17 gram 17 g PO DAILY 10/22/21 01/29/22 oral powder packet sennosides 8.6 mg-docusate sodium 2 tab-cap PO BID 10/22/21 01/29/22 50 mg tablet thiamine HCl (vitamin B1) 100 mg 100 mg PO DAILY 10/22/21 01/29/22 tablet bupropion HCl 100 mg tablet,12 hr 200 mg PO BID #120 tabs 12/04/21 01/29/22 sustained-release folic acid 1 mg tablet 1 mg PO DAILY #90 tabs 12/04/21 01/29/22 albuterol sulfate 90 mcg/actuation 2 inh inhalation Q6H PRN 12/31/21 01/29/22 breath activated powder inhaler olanzapine 7.5 mg tablet (Zyprexa) 7.5 mg PO QHS 12/31/21 01/29/22 Previous Rx's Medication Instructions Recorded aspirin 81 mg chewable tablet 81 mg PO DAILY #30 tabs 11/25/20 lorazepam 2 mg tablet (Ativan) 2 mg PO BID PRN #30 tabs 11/25/20 tamsulosin 0.4 mg capsule 0.4 mg PO DAILY #90 caps 08/14/21 bupropion HCl 100 mg tablet,12 hr 200 mg PO BID #120 tabs 12/04/21 sustained-release folic acid 1 mg tablet 1 mg PO DAILY #90 tabs 12/04/21 Allergies Allergy/AdvReac Type Severity Reaction Status Date / Time bee pollen Allergy Severe swelling Verified 01/29/22 17:06 General Stated Complaint: Laceration SALINA: 3 Review of Systems All systems reviewed & are unremarkable except as noted in HPI and below PFSH All Active Problems (Updated 01/29/22 @ 19:09 by JESSICA Ramesh) Head injury (Acute) Facial laceration (Acute) Cognitive impairment (Acute) Parkinsonian features (Acute) Pneumonia (Acute) Hard of hearing (Chronic) refuses to wear hearing aids Health care proxy on file (Chronic) , Sisi Shepherd daughter, Monica El, back-up DNI (do not intubate) (Acute) DNR (do not resuscitate) (Acute) POLST (Physician Orders for Life-Sustaining Treatment) (Acute) Vaccine counseling (Acute) Dementia (Chronic) Incontinence of bowel (Acute) Incontinence of urine (Acute) Frequent falls (Acute) Carotid stenosis (Acute) Acute kidney injury (Acute) DVT prophylaxis (Acute) Exposure to excessive natural heat (Acute) Atrial flutter by electrocardiogram (Acute) Medically noncompliant (Acute) Confusion (Acute) Taking multiple medications for chronic disease (Acute) Ambulatory dysfunction (Acute) Bipolar disorder (Chronic) diagnosed in 1992 mood swings all his life Leg cramps (Acute) Neural hearing loss, bilateral (Acute) Nasal turbinate hypertrophy (Acute) Congenital nasal septum deviation (Acute) Orthopnea (Acute) Breathlessness (Acute) Low back pain (Acute) Sleep disorder (Acute) Nasal obstruction (Acute) Diverticula of colon (Acute) Tremor (Acute 06/14/17) Paralysis agitans (Acute) Lynn (Acute 01/06/17) Bipolar 1 disorder (Chronic 07/29/15) Persistent mood disorder (Chronic) a lot of contributing stressors Essential hypertension (Chronic) Medical History (Updated 01/29/22 @ 19:09 by JESSICA Ramesh) Bipolar disorder, current episode manic severe with psychotic features Hyperlipidemia, unspecified Palliative care patient Surgical History History of colonoscopy History of orchiectomy, unilateral left Family History Mother , 73 of her chronic lung disease Depression Asthma Bipolar 1 disorder Chronic lung disease Father , age 61 from heart failure Kidney malignancy Heart disease Hyperlipidemia Hypertension Sister No problems noted. Sister No problems noted. Sister Heart disease Hyperlipidemia Hypertension Sister No problems noted. Sister No problems noted. Brother Heart disease Brother , age 48 fro Sudden Cardiac Heart disease Hyperlipidemia Hypertension Maternal Grandfather , 64 Heart disease Hyperlipidemia Hypertension Paternal Grandfather , 56 Heart disease Hyperlipidemia Hypertension Maternal Grandmother , 70 Asthma Stroke Paternal Grandmother , 80 No problems noted. Son No problems noted. Daughter No problems noted. Social History Smoking/Tobacco Use Status: Former Tobacco Use Quit Date: 08/03/18 Quit status: has quit before Smoking risk assessment performed?: Yes Alcohol Intake: never Drug use: Never Substance use type: does not use Caregiver/Support person: Yes () Household members: spouse Housing: other Details: camper when in [place]; friend's trailer [place] [facility] Number of Children: 2 number of grandchildren: 5 Communication Needs: Corrective Lenses Education Level: high school Do you need help understanding health information?: Always current occupation: retired from [employer] Pets and animals: Yes Pets and animals: dog(s) Sexually active: Yes Do you think of yourself as: straight/heterosexual Current gender identity: male What is your relationship status?: How often do you talk on the phone with friends or family?: once per week How often do you get together with friends or relatives?: twice per week How often do you attend evangelical or evangelical services?: 4 or more times per year Do you belong to any clubs or organized social groups?: no Panel score (0-1 are the most socially isolated patients): 3 What type of physical activity do you participate in: walking Duration: 15-30 minutes/day Frequency: does not exercise Eloisa/Anabaptism: Jew Special eloisa needs: No Agree to transfusion: No Seatbelt use: always Working smoke detector in home: Yes Fire extinguisher in home: Yes Do you feel safe at home: Yes Do you feel safe in your relationship?: Yes Additional Social history: is his caregiver. They live in a camper during the summer at [place] [facility] and stay for free at a friend's trailer in [facility] during the winter. Met at daughter's house in [facility] where they frequently go for meals, socializing, etc. He has hearing aids he refuses to wear. Neither Se[place] nor vaccinated against COVID 19. Limits ability to go to [facility] or be considered for placement at community care homes. No savings to pay for LTC. Not on [facility] for care yet. Discussed planning. Filled out COLST and health care agent paperwork. Exam Const General: cooperative, comfortable and no acute distress Orientation: alert and oriented x3 Limitations: altered mental status [facility] Head images: 1. laceration noted Other: No hemotympanum Eyes Pupils: PERRL Neck Other: no midline tenderness Chest Chest: normal inspection of the chest Resp Effort & Inspection: normal respiratory effort Cardio Rate: regular rate GI Inspection: normal to inspection Skin Other: facial laceration Neuro General: patient alert, patient oriented x3 and no focal motor deficits Cranial Nerves: CN's II-XI intact bilaterally Cognition: normal cognition Speech: speech normal Gait: normal gait Extrem General: normal to inspection Course Vital Signs Vital signs: Vital Signs Temperature 36.8 C 01/29/22 17:01 Pulse 81 01/29/22 17:01 Respiratory Rate 18 01/29/22 17:01 Blood Pressure 143/82 H 01/29/22 17:01 Pulse Oximetry 96 01/29/22 17:01 Temperature 36.8 C 01/29/22 17:01 Temperature Source Oral 01/29/22 17:01 Pulse 81 01/29/22 17:01 Respiratory Rate 18 01/29/22 17:01 Respiratory Effort Non-Labored 01/29/22 17:05 Blood Pressure 143/82 H 01/29/22 17:01 Blood Pressure Position Sitting 01/29/22 17:01 Pulse Oximetry 96 01/29/22 17:01 Oxygen Delivery Method Room Air 01/29/22 17:01 Oxygen Flow Rate 0 01/29/22 17:01 Pain Level 0 01/29/22 17:01
== END 2022-01-29 19:58 | disposition home or self-care (01) ==
PROVIDERS: Emergency Provider Physician Assistant; PCP Family Medicine
DX: S09.8XXA Other specified injuries of head, initial encounter (principal); S01.81XA Laceration without foreign body of other part of head, initial encounter; W01.0XXA Fall on same level from slipping, tripping and stumbling without subsequent striking against object, initial encounter; R40.2412 Glasgow coma scale score 13-15, at arrival to emergency department
CPT/HCPCS: 99284; 70450; 72125; 99283

== ENCOUNTER 2022-02-05 14:30 | Emergency (ER) | payer MEDICARE, SELFPAY ==
--- OUTSIDE RECORDS SUMMARY | 2022-02-05 14:36 | XMS_ITS | Clinical Summary ---
:1950 Author Organization [facility] Address [address] [place] [address] Care Team Providers Name Role Phone None, Provider Primary Care Provider Unavailable Allergies Active Allergy Reactions Severity Noted Date Comments Venom-Wasp 08/29/2010 Medications Medication Sig Dispensed Refills Start Date End Date Status propranolol (INDERAL) Take 60 mg by mouth 0 08/30/19 11 Active 60 mg daily. Indications: tabletIndications: ESSENTIAL TREMOR essential tremor lamotrigine Take 150 mg by 0 Act ron (LAMICTAL) 100 mg mouth daily. tabletIndications: Indications: bipolar disorder BIPOLAR DISORDER risperidone Take 1 mg by mouth 0 08/29/2010 Active (RISPERDAL) 1 mg 4 times daily as tabletIndications: needed. Agitation Indications: Agitation Active Problems Problem Noted Date Bipolar I disorder, most recent episode (or current) m anic, moderate 08/29/2010 ([facility]) Encounters Date Type Specialty Care Team Description 11/05/2021 Lab Requisition Clinical Laboratory Outr Resulting Lab , Provider from Last 3 Months Social History Tobacco Use Types Packs/Day Years Used Date Never Assessed Sex Assigned at Date Recorded Not on file Last Filed Vital Signs Vital Sign Reading [...] Body Mass Index 28.49 08/29/2010 1300 EDT Plan of Treatment Health Maintenance Due Date Last Done Comments Hepatitis C Screen 1950 COVID-19 Vaccine (1) 11[birth year]13/1955 Fall Risk Screening 11/13/2016 Procedures Procedure Name Priority Date/Time Associated Diagnosis Comme nts HOLD SST Today 11/05/2021 10:38 EDT Results for this procedure are i n the results section . T3 FREE Today 11/05/2021 10:38 EDT Results for this procedure are i n the results section . PROLACTIN Today 11/05/2021 10:38 EDT Results for this procedure are i n the results section . from Last 3 Months Results HOLD SST (11/05/2021 10:38 EDT) Pathologist Sig nature Hold Hold [facility] Specimen Blood - Venous blood (substance) Performing Organization Address City/[facility]/ZIP Code Phon e Number [facility] [address] [place] [address] SERVICES PROLACTIN (11/05/2021 10:38 EDT) Pathologist Sig nature Prolactin 9.5 2.1 - 17.7 ng/mL [facility] Specimen Blood - Venous blood (substance) Performing Organization Address City/State/ZIP Code Phon e Number [facility] [address] [place] [address] SERVICES (ABNORMAL) T3 FREE (11/05/2021 10:38 EDT) Pathologist Sig nature T3, Free 2.7 (L) 2.8 - 5.3 pg/mL [facility] Specimen Blood - Venous blood (substance) Performing Organization Address City/State/ZIP Code Phon e Number [facility] [address] [place] [address] SERVICES from Last 3 Months Advance Directives For more information, please contact: [phone] Latest Code Status on File Code Status Date Activated Date Inactivated Comments Full Code 08/29/2010 17:55 09/09/2010 17:05 Care Teams Hackler Doll Wigs Relationship Specialty Start Date End Date None, Provider PCP - General 08/29/10
--- OUTSIDE RECORDS SUMMARY | 2022-02-05 14:37 | XMS_ITS | Encounter Summary ---
:1950 Author Organization [facility] Address [address] [place] [address] Care Team Providers Name Role Phone Jose Eduardo Barboza MD Primary Care Provider [phone] Reason for Visit Reason Onset Date Comments Prior Authorization 12/22/2021 Approved 5 days fro m 12/19-12/23/21 with auth # [id number]. Will n eed to call [phone] on 12/23/21 to extend a [facility]. Encounter Details Date Type Department Care Team Description 12/22/2021 Telephone Psychiatry Zara Woodard Prior Authorization ( [facility] Approved [address] 12/19-12/23/21 [place] [address] # [id number]. Will [phone] need to call [phone] on 12/23/21 to extend auth. /) Social History Tobacco Use Types Packs/Day Years Used Date Never Smoker Smokeless Tobacco: Never Used Alcohol Use Standard Drinks/Week Comments Never 0 (1 standard drink = 0.6 oz pure alcoho l) Sex Assigned at Date Recorded Not on file documented as of this encounter Miscellaneous Notes Telephone Encounter - Zara Woodard - 12/22/2021 9:19 AM EDT ??? Insurance Verified: [employer] ??? Insurance Effective To/From Dates: 04/05/20 - Current ??? Third Libertarian Vendor: NA ??? Authorization number: [id number] ??? Validity Dates: 12/19-12/23/21 ??? Date of Service: 12/19/21 ??? CPT/Description: ER IPI Psych Admit ICD-10/Description: Catatonia [F06.1] ??? Ordering Provider: Tayo Lindsay MD ??? Patient Class: IPI ??? How many days approved: 5 ??? Call Reference Number: [id number] ??? Spoke With: Isael Flores ? Financially Cleared: YES ??? PSC Insurance Contact Information ??? PSC Insurance Name: NA ??? Insurance ??? Insurance Fax Number: NA ??? Additional Clinical Required Y/N?: Y will need to call [phone] on 12/23/21 to extend auth. ??? Patient Class Change Requirements: NA ??? Notes - Include any additional documentation if provided: PC to [facility] [employer] and spoke with Anirudh Anderson who confirmed active coverage as of 04/05/20. Told me that I needed to call Authorizations at [phone]. Called that phone number and spoke with Binta who stated need to call [facility] for the auth at [phone]. PC to that number and spoke with [employer] who transferred me to [facility]. Then was transferred again and spoke with Magaly Prater who transferred me again. Spoke with Bonifacio Flores Who started auth. Approved 5 days from 12/19- 12/23/21 with auth # [id number]. Sent phone message to on @ [facility]. documented in this encounter Plan of Treatment Not on filedocumented as of this encounter Visit Diagnoses Not on filedocumented in this encounter Care Teams Ethnographic Materials Conservator Relationship Specialty Start Date End Date Jose Eduardo Barboza MD PCP - General Family Medicine 02/09/[address] [place] [address] documented as of this encounter
--- OUTSIDE RECORDS SUMMARY | 2022-02-05 14:37 | XMS_ITS | Encounter Summary ---
:1950 Author Organization [facility] Address [address] [place] [address] Care Team Providers Name Role Phone Unavailable Primary Care Provider Unavailable Encounter Details Date Type Department Care Team Description 06/18/2008 Hospital Encounter [facility] - Dayron Coelho MD Other [address] [place] [id number] (Wo rk) Social History Tobacco Use Types Packs/Day Years Used Date Never Assessed Sex Assigned at Date Recorded Not on file documented as of this encounter Discharge Disposition Disposition Code Departure Means Destination Home or Self Care documented in this encounter Plan of Treatment Not on filedocumented as of this encounter Procedures Procedure Name Priority Date/Time Associated Diagnosis Comme [facility] SURGICAL PATHOLOGY Routine 06/18/2008 0:00 EDT Re sults for this procedure are i n the results section. documented in this encounter Results SURGICAL PATHOLOGY (06/18/2008 0:00 EDT) Pathology Report: SURGICAL PATHOLOGY REPORT ? [facility] Reports generated via electr Mistic[employer] interface contain original data; ? LAB however [...] Organization Address City/State/ZIP Code Phon e Number [facility] [address] [place] [address] SERVICES [facility] [address] [place] [address] documented in this encounter Visit Diagnoses Not on filedocumented in this encounter
--- OUTSIDE RECORDS SUMMARY | 2022-02-05 14:37 | XMS_ITS | Encounter Summary ---
:1950 Author Organization [facility] Address [address] [place] [address] Care Team Providers Name Role Phone None, Provider Primary Care Provider Unavailable Encounter Details Date Type Department Care Team Description 12/08/2019 Lab Requisition [facility] Outr Resulting Lab, Pathology & Laboratory Provider [facility] [address] [place], [place] [address] Social History Tobacco Use Types Packs/Day Years [...] Date/Time Associated Diagnosis Comme nts COVID-19 TEST [facility] Today 12/08/2019 20:38 LAB PCR EDT COVID-19 TESTING Routine 12/08/2019 20:38 Results for this EDT procedure are i n the results section. documented in this encounter Results COVID-19 TEST [facility] LAB PCR (12/08/2019 20:38 EDT) Specimen Swab - Entire nasopharynx (body structur e) Performing Organization Address City/State/ZIP Code Phon e Number [facility] [address] [place] [address] SERVICES COVID-19 TESTING (12/08/2019 20:38 EDT) COVID-19 rt-PCR Negative Negative [facility] Result Comment: CENTER [facility] This test [...] and epidemiological informatio n. Performed on the MYFXher Fusion instrument Performing Lab [place] [facility] Lab [facility] SERVICES Specimen Swab Performing Organization Address City/State/ZIP Code Phon e Number [facility] [address] [place] [address] SERVICES documented in this encounter Visit Diagnoses Not on filedocumented in this encounter Care Teams Double End Trimmer Relationship Specialty Start Date End Date None, Provider PCP - General 08/29/10 documented as of this encounter
--- OUTSIDE RECORDS SUMMARY | 2022-02-05 14:37 | XMS_ITS | Encounter Summary ---
:1950 Author Organization [facility] Address [facility] [place] [address] Care Team Providers Name Role Phone Jose Eduardo Barboza MD Primary Care Provider [phone] Reason for Visit Auth/Cert Specialty Diagnoses / Procedures Referred By Contact Refer red To Contact Diagnoses Catatonia CATATONIA Tayo Lindsay MD [facility] Procedures ER IPI Psych Admit [facility] [place] [address] Referral ID Status Reason Start Date Expiration Date Visits Requ ested Visits Authorized [id number] 1 1 Encounter Details Date Type Department Care Team Description 12/19/2021 - Hospital Encounter 2 [facility] Psych[facility] Tayo Lindsay , 12/24/2021 Carrie Flores MD [facility] [place] [address] [place], [place] [phone] [id number] (Work) [phone] Social History Tobacco Use Types Packs/Day Years Used Date Never Smoker Smokeless Tobacco: Never Used Alcohol Use Standard Drinks/Week Comments Never 0 (1 standard drink = 0.6 oz pure alcoho l) Sex Assigned at Date Recorded Not on file documented as of this encounter Last Filed Vital Signs Vital Sign Reading Time Taken Comments Blood Pressure 139/63 12/24/2021 8:58 AM EDT Pulse 88 12/24/2021 8:58 AM EDT Temperature 37.1 ??C (98.8 ??F) 12/24/2021 8:58 AM EDT Respiratory Rate 16 12/24/2021 8:58 AM EDT Oxygen Saturation 98% 12/24/2021 8:58 AM EDT Inhaled Oxygen Concentration - - Weight 74.7 kg (164 lb 9.6 oz) 12/21/2021 8:56 AM EDT Height 177.8 cm (5' 10) 12/19/2021 4:22 PM EDT Body Mass Index 23.62 12/19/2021 4:22 PM EDT documented in this encounter Discharge Summaries Devora Alcala MD - 12/24/2021 11:36 AM EDT Discharge Summary Patient Name: Sebas Shepherd Jr. Patient Age: 71 y.o. Language: Omani Race: White Ethnicity: Not nor Admit date: 12/19/2021 Discharge date and time: 12/24/21 Attending Physician: Dr. Tayo Lindsay Discharge Physician: Dr. Devora Alcala Discharge Diagnoses (Hospital Problems) and Secondary Diagnoses (Chronic Problems): Active Hospital Problems Diagnosis ??? Bipolar I disorder, most recent episode (or current) manic, moderate Resolved Hospital Problems No resolved problems to display. Active Non-Hospital Problems Diagnosis ??? Catatonia ??? Altered mental status ??? Obtundation Follow-up Recommendations for Providers: Please monitor the patient's condition, and adjust medications accordingly We made the following medication change: Increased Zyprexa 5mg -->7.5mg Zyprexa can cause increases in HbA1c and Lipids. It is suggested to re-check these values 12 weeks after initiating this medication to ensure no metabolic side effects, as well as checking blood chemistries and a CBC annually. Also watch for weight gain, tardive dyskinesia, and fall risk. During his prior admission to medicine at [facility], his ativan was increased to 1mg TID We recommend monitoring his mental alertness and fall risk, as well as CBC and LFTs if he will be continued on this medication long-term. Follow-up Providers/Appointments: General Instructions We have made the following appointment for you: [facility] [address] [place] [address] Phone: Fax: \ Dr. Brooks: December 26 at 9:00am (in-office appointment) --- We have submitted a referral for home health services to: [facility] [address] [address] [facility] Inpatient Provider Contact Information: For questions regarding this document (including laboratory or other studies) or issues relating to this hospitalization, please contact your patient director day care center, MARIA EUGENIA ROWELL RN, through the [facility] Multimedia Editor . Issues after hours and on weekends will be handled by the university president on-call who can be reached through the Department of Psychiatry by calling [phone] and following the appropriate prompts to connect to the superintendent container terminal team. Medication Instructions Continue to take all of the medications as instructed. Any medication changes will be addressed at your next outpatient appointment with the individual who prescribes your medications. Advance Care Plan The patient has an appointed surrogate decision maker: yes Name of surrogate decision maker: Sisi Shepherd The patient has medical advance directives: yes The patient has psychiatric advance directives: no The patient was offered information about designating a surrogate decision maker, medical advance directives and psychiatric advance directives. The patient declines further information at this time. All eleven elements of the Transition Record have been reviewed with the patient. Reason for Hospitalization: safety, stabilization and medication management History of Presentation: As per the 12/19/2021 admission H&P: 71 year old male BPAD type 1 catatonia htn, hld, bph, cognitive impairment being admitted as a transfer from medicine for catatonia. Outside hospital was initial suspicious if his gabbie was real vs behavioral but improved on ativan, scored on raul ruiz. Patient has been very delusional. Team hasbeen slowly up-titrating zyprexa to 5 mg qhs right now. said hes been laying in bed for past 3 months and describes a picture of unresovled mood/derpssion sx/delusional thinking. Has a great relationship with his outpatient psychiatrist Dr. Brooks. Pt is very hard of hearing. ?? Per Dr. Mao's Initial Consult note: Per Isabel Shepherd ():? She states that for the past couple of days, his ankle had pain and patient has had chronic ankle pain. Anytime she tried to get him out of bed, he would refuse saying his ankle hurt.??Therefore, this is why they originally brought him to the emergency room. ?? She states that two months ago, the patient had an acute change where he began wetting himself and wouldn't??get out of bed. Hasn't been eating, has lost 30 lb in the past few months which is unusual for him. She states he just lays in bed all day, and when they try to get him up he'll refuse.? The states that a few weeks ago, he was at [facility] for five days to be treated for catatonia which was his first ever episode of this. She states that following this treatment withAtivan, he showed some improvement as he began to talk and eat a little bit more however it was still far off from his baseline.??She states during that episode, he looked similar to how it looks on current exam where he is hunched over staring straight ahead with the fixed gaze. She states the main differences that he was not grunting during the prior catatonic episode and currently, the patient is continuously grunting. ?? She states initially, it was thought that the patient was having seizures as at times during episodes, his eyes will bulge out and that he was evaluated for this at??[facility]??but that EEGdid not show seizure activity. She states that the patient was informally diagnosed with dementia approximately one year ago however they have a formal neurology appointment?12/31 - [facility]. Although no formal diagnosis exists, notes several odd behaviors stating that he may, he would throw away things such as brand-new glasses into the montaño, binoculars into the garbage.? She states the patient does have a psychiatrist Dr. Brooks who recently we develop [facility] and last saw him one week ago. Per , Dr. Brooks said that the patient was on too many medications fromateful and that he should be weaned off. ?? [facility] and per , was discharged as they were told that his issues were behavior rather than medical.? Additionally, should be noted that the patient was recently at [facility] where he was diagnosed with pneumonia and a urinary tract infection which is why he is currently on antibiotics. ?? On my interview Sebas was hard of hearing and required shouting and simple sentences. His Isabel says he threw away his hearing aid and glasses within the past year and refuses to use either. He also cut the seatbelts out of their car in [place] where they spend posey, and example she gave of thepatterns of odd behavior he's been engaging in over the past year. His describes the precipitous drop off as noted above where Sebas would not leave his bed for the past 3 months. When asked about this, Sebas says he was staying in bed because he was tired. Asked if he wants to be out of bed more he replied it depends what their is to do. His goals for the stay are to leave. The fiction and nonfiction writer prose described the improvements in independence/self care the Sebas will need to accomplish before leaving. ?? Sebas denied any ankle pain or other physical pain. He denied SI/HI/AVH. Said he feels safe on the unit. Is able to ambulate with walker and use restroom independently, though notes a few days ago he soiled himself. ?? He was initially placed on mechanical soft diet due to breathing concerns he struggled with earlier (determined to be psychogenic) but that issues has resolved and Sebas and would like return to regular diet. Hospital Course: Sebas Shepherd Jr. was voluntarily admitted to inpatient psychiatry for safety, stabilization, and medication optimization. Standard admission labs were ordered and pertinent results are located below. Psychiatric meds on this admission: - increased zyprexa from 5mg to 7.5mg daily for bipolar disorder - Continued Ativan 1mg TID for catatonia (+1mg qhs prn for anxiety) - Continued wellbutrin 100mg BID - Continue mirtazapine 45mg nightly He tolerated these medication changes well and denied any side effects throughout admission or at time of dicharge.??As the hospital stay progressed the patient became less catatonic and more active onthe unit. ??He began showering and leaving his bed more. On the day of discharge he denied any depres sive or manic symptoms and was looking forward to going home. ??He was linear and organized. ??His mood and mental status gradually improved throughout this admission. He was active in the therapeutic milieu and engaged in his treatment throughout this hospitalization. The hospital course was without complication On the day of discharge, the patient denied thoughts of suicide, homicide, or violence. Follow up was scheduled as described below, and this information was provided to the patient in his After Visit Summary. Patient was also provided with emergency contact information. Mental Status Exam: ?? Appearance: age appropriate and casually dressed ?? Behavior: cooperative with the interview, calm and good eye contact ?? Speech: normal pitch, normal volume, normal rate and normal rhythm ?? Language: fluent in bangladeshi ?? Mood: good ?? Affect: constricted ?? Thought Process: linear and logical ?? Associations: intact ?? Thought Content: denied homicidal ideation, denied suicidal ideation, no bizarre delusions and noparanoid delusions ?? Perception: denied auditory hallucinations denied visual hallucinations ?? Orientation: grossly intact by interview ?? Attention/Concentration: able to sustain focus and able to attend interview ?? Cognition: grossly intact by interview ?? Memory: recent and remote memory grossly intact ?? Fund of Knowledge: appropriate for age and level of functioning ?? Insight: fair ?? Judgment: fair Q1 Wish to be : Have you wished you were or wished you could go to sleep and not wake up?: no (12/19/211641) Q2 Suicidal Thoughts: Have you actually had any thoughts of killing yourself?: no (12/19/211641) Q6 Suicide Behavior (Lifetime): Have you ever done anything, started to do anything, or prepared to do anything to end your life?: no (12/19/211641) Functional and Cognitive Status: At patient's perceived baseline Important Studies: Latest Reference Range & Units 12/15/21 04:22 12/16/21 04:30 12/17/21 04:26 12/17/21 08:57 12/18/21 05:23 12/19/21 05:05 WBC 4.0 - 9.5 x10(3)/mcL 8.5 9.2 8.8 10.0 (H) 10.1 (H) RBC 4.58 - 5.54 x10(6)/mcL 4.53 (L) 4.77 4.66 4.65 4.62 Hemoglobin 13.7 - 16.5 g/dL 14.0 14.5 14.5 14.1 14.1 Hematocrit 40.5 - 48.5 % 41.3 43.7 42.8 42.7 41.5 MCV 82.9 - 93.1 fL 91.2 91.6 91.8 91.8 89.8 MCH 27.5 - 32.1 pg 30.9 30.4 31.1 30.3 30.5 MCHC 32.0 - 35.7 g/dL 33.9 33.2 33.9 33.0 34.0 RDWSD 36.0 - 45.0 fL 47.5 (H) 47.3 (H) 47.8 (H) 47.3 (H) 45.1 (H) RDWCV 11.4 - 13.8 % 14.2 (H) 14.1 (H) 14.2 (H) 14.0 (H) 13.7 Platelets 145 - 357 x10(3)/mcL 290 286 315 306 308 MPV 7.6 - 12.9 fL 10.6 10.7 10.6 10.5 10.6 nRBC % Auto % 0.0 0.0 0.0 0.0 0.0 nRBC Abs Auto 0.000 - 0.000 x10(3)/mcL 0.000 0.000 0.000 0.000 0.000 Neutr Abs (ANC) 1.70 - 6.10 x10(3)/mcL 5.09 5.27 5.04 5.85 7.17 (H) Neutrophils % % 59.6 57.5 57.4 58.5 70.7 Immature Gran % % 0.50 0.70 0.50 0.90 0.70 Lymphocytes % % 27.8 28.9 27.1 25.4 15.9 Monocytes % % 8.7 8.1 9.4 9.6 8.9 Eosinophils % % 2.9 4.3 4.9 5.0 3.3 Basophils % % 0.5 0.5 0.7 0.6 0.5 Nasreen Gran Abs 0.00 - 0.04 x10(3)/mcL 0.04 0.06 (H) 0.04 0.09 (H) 0.07 (H) Lymphocytes Abs 0.9 - 3.2 x10(3)/mcL 2.4 2.6 2.4 2.5 1.6 Monocyte Abs 0.3 - 0.9 x10(3)/mcL 0.7 0.7 0.8 1.0 (H) 0.9 Eosinophils Abs 0.0 - 0.4 x10(3)/mcL 0.2 0.4 0.4 0.5 (H) 0.3 Basophils Abs 0.0 - 0.1 x10(3)/mcL 0.0 0.0 0.1 0.1 0.0 Sodium 135 - 145 mmol/L 142 142 139 140 140 Potassium 3.5 - 5.0 mmol/L 3.7 3.5 Not Perf 4.1 3.5 3.8 Chloride 98 - 107 mmol/L 109 (H) 108 (H) 107 109 (H) 107 CO2 22 - 31 mmol/L 22 24 22 21 (L) 22 Anion Gap 5 - 15 mmol/L 11 10 10 10 11 BUN 10 - 20 mg/dL 7 (L) 6 (L) 7 (L) 10 12 Creatinine 0.80 - 1.50 mg/dL 1.10 1.08 1.02 1.18 1.21 Estimated GFR >=60 mL/min/1.73 m?? 72 74 79 66 64 Calcium 8.5 - 10.5 mg/dL 8.9 8.6 8.9 8.6 9.1 Magnesium 0.69 - 1.07 mmol/L 0.71 Phosphorus 2.5 - 4.5 mg/dL 2.7 2.6 2.6 2.4 (L) Glucose Lvl 65 - 199 mg/dL 82 84 92 96 106 Chol, Total mg/dL 194 HDL mg/dL 35 Chol/HDL Ratio ratio 5.5 LDL Chol Direct mg/dL 110 (H): Data is abnormally high (L): Data is abnormally low Discharge Medications: Your Medications New Medications Dose Details acetaminophen 325 mg Tab Commonly known as: Tylenol Take 2 tablets by mouth every 6 hours as needed for Pain. 650 mg Quantity: 30 tablet Refills: 1 albuteroL 2.5 mg /3 mL (0.083 %) Nebu Commonly known as: Proventil Take 3 mLs by nebulization every 6 hours as needed for Wheezing or Shortness of Breath. 2.5 mg Quantity: 90 mL Refills: 1 carboxymethylcellulose 0.5 % Dpet Commonly known as: Refresh Plus Place 2 drops into both eyes 3 times daily as needed. 2 drop Quantity: 30 each Refills: 0 Continued medications with new dosing Dose Details buPROPion SR 100 mg Sr12 Commonly known as: Wellbutrin SR Take 1 tablet by mouth 2 times daily. What changed: ?? medication strength ?? how much to take 100 mg Quantity: 60 tablet Refills: 0 LORazepam 1 mg Tab Commonly known as: Ativan Take 1 tablet by mouth 3 times daily. May also take 1 tablet nightly as needed for Anxiety. What changed: ?? See the new instructions. ?? Another medication with the same name was removed. Continue taking this medication, and follow the directions you see here. Quantity: 120 tablet Refills: 0 OLANZapine 7.5 mg Tab Commonly known as: ZyPREXA Take 1 tablet by mouth nightly. What changed: ?? medication strength ?? how much to take 7.5 mg Quantity: 30 tablet Refills: 0 polyethylene glycoL 17 gram Pwpk Commonly known as: Miralax Take 17 g by mouth daily as needed. What changed: ?? when to take this ?? reasons to take this 17 g Quantity: 14 each Refills: 0 Continued medications, unchanged Dose Details aspirin 81 mg Chew Take 81 mg by mouth daily. 81 mg Refills: 0 folic acid 1 mg Tab Commonly known as: Folvite Take 1 mg by mouth daily. 1 mg Refills: 0 melatonin 3 mg Tab Take 3 mg by mouth nightly. 3 mg Refills: 0 mirtazapine 45 mg Tab Commonly known as: REMERON Take 45 mg by mouth nightly. 45 mg Refills: 0 senna-docusate 8.6-50 mg Tab Commonly known as: Pericolace Take 1 tablet by mouth daily. 1 tablet Refills: 0 tamsulosin 0.4 mg Cap Commonly known as: Flomax Take 1 capsule by mouth daily. 0.4 mg Quantity: 30 tablet Refills: 0 thiamine 100 mg Commonly known as: Vitamin B1 Take 100 mg by mouth Daily. 100 mg Refills: 0 STOPPED Medications magnesium oxide 400 mg (241.3 mg magnesium) Tab Commonly known as: Mag-Ox Antipsychotic Quality Measure (select one of three reasons): No Updated Allergies/ADRs: Allergies Allergen Reactions ??? Hymenoptera Allergenic Extract Other reaction(s): anaphylaxis/angioedema ??? Venom-Wasp Immunizations Given this Hospitalization: There is no immunization history on file for this patient. Smoking Status at Discharge: Social History Tobacco Use Smoking Status Never Smoker Smokeless Tobacco Never Used Instructions Given to Patient at Discharge: Patient Instructions Recommend patient does not drive a car. Discharge References/Attachments None Discharge Condition/Prognosis: Satisfactory condition. Prognosis is dependent on patient's participation in ongoing treatment and adherence with prescribed medications. Signed: Devora Alcala MD 12/24/2021 Associated attestation - Tayo Lindsay MD - 12/25/2021 9:38 AM EDT I have personally seen and examined the patient. The patient denies suicidal ideations or homicidal ideations or paranoia. The patient is future oriented and has specific practical and behavioral goalsupon leaving the hospital. Alcohol Use Patient does not meet criteria for unhealthy alcohol use. Drug Use Disorder Pt does not meet criteria for substance use disorder Tobacco Use Patient is a non-smoker. The patient is ready for discharge with aftercare per AVS. Greater than 30 minutes was spent coordinating discharge for this patient and included [id number] interview and exam, explanation of after visit instructions and medications to the patient and necessary caregivers, documentation, and prescription management. documented in this encounter Discharge Instructions Discharge InstructionsMaria Eugenia Rowell RN - 12/22/2021 10:54 AM EDT We have made the following appointment for you: [facility] [address] [place] [id number] Phone: Fax: \ Dr. Brooks: December 26 at 9:00am (in-office appointment) --- We have submitted a referral for home health services to: [facility] [address] Inpatient Provider Contact Information: For questions regarding this document (including laboratory or other studies) or issues relating to this hospitalization, please contact your patient director day care center, MARIA EUGENIA ROWELL RN, through the [facility] Multimedia Editor . Issues after hours and on weekends will be handled by the university president on-call who can be reached through the Department of Psychiatry by calling [phone] and following the appropriate prompts to connect to the superintendent container terminal team. Medication Instructions Continue to take all of the medications as instructed. Any medication changes will be addressed at your next outpatient appointment with the individual who prescribes your medications. Advance Care Plan The patient has an appointed surrogate decision maker: yes Name of surrogate decision maker: Sisi Shepherd The patient has medical advance directives: yes The patient has psychiatric advance directives: no The patient was offered information about designating a surrogate decision maker, medical advance directives and psychiatric advance directives. The patient declines further information at this time. All eleven elements of the Transition Record have been reviewed with the patient. Patient InstructionsTayo Lindsay MD - 12/23/2021 10:50 AM EDT Recommend patient does not drive a car. documented in this encounter Medications at Time of Discharge Medication Sig Dispensed Refills Start Date End Date LORazepam (Ativan) 1 mg Take 1 tablet by 120 tablet 0 2021 Tablet mouth 3 times daily. May also take 1 tablet nightly as needed for Anxiety. buPROPion SR (Wellbutrin SR) Take 1 tablet by 60 tablet 0 0 12/23/2021 100 mg tablet mouth 2 times sustained-release 12 hr daily. OLANZapine (ZyPREXA) 7.5 mg Take 1 tablet by 30 tablet 0 Tablet mouth nightly. polyethylene glycoL Take 17 g by mouth 14 each 0 12/24/19 22 (Miralax) 17 gram Powder in daily as needed. Packet tamsulosin (Flomax) 0.4 mg Take 1 capsule by 30 tablet 0 Capsule mouth daily. carboxymethylcellulose Place 2 drops into 30 each 0 12/23 (Refresh Plus) 0.5 % both eyes 3 times Dropperette daily as needed. albuteroL (Proventil) 2.5 mg Take 3 mLs by 90 mL 1 12/05 /3 mL (0.083 %) Solution for nebulization every Nebulization 6 hours as needed for Wheezing or Shortness of Breath. acetaminophen (Tylenol) 325 Take 2 tablets by 30 tablet 1 0 12/23/2021 mg Tablet mouth every 6 hours as needed for Pain. aspirin 81 mg Tablet, Take 81 mg by 0 Chewable mouth daily. folic acid (Folvite) 1 mg Take 1 mg by mouth 0 Tablet daily. melatonin 3 mg Tablet Take 3 mg by mouth 0 nightly. mirtazapine (REMERON) 45 mg Take 45 mg by 0 Tablet mouth nightly. senna-docusate (Pericolace) Take 1 tablet by 0 8.6-50 mg Tablet mouth daily. thiamine (Vitamin B1) 100 mg Take 100 mg by 0 mouth Daily. documented as of this encounter Progress Notes Rafia Lindsay [facility] - 12/24/2021 10:23 AM EDT Inpatient Daily Group Note Group: Goals Attendance: Present Behavior: Quiet Therapeutic Work Observed: Minimal Mood: Detached Notes: Discussed group expectations of attending groups at the designated time as well as attemptingto remain for the whole group. Reviewed unit details, such as laundry, menu planning, and maintaining clean and safe living areas. Reviewed group norms; no food, no leaving for the bathroom unless necessary, and water only. Explained daily room checks and the rationale for doing so. Patient goal: Take a shower, brush my teeth, and put on my clothes for going home. AMADA GoodsonRashad 12/24/2021 Maria Eugenia Rowell RN - 12/24/2021 8:32 AM EDT DOCUMENTATION FOR VNA SERVICES (INCLUDING THOSE PATIENTS WITH MEDICARE COVERAGE REQUIRING HOME VNA SERVICES AND/OR HOSPICE SERVICES) PATIENT'S LOCATION: Sebas Shepherd Jr. [address] [facility] [address] (home) Cell: Telephone Information: Boiler Control Room Operator's Name: -Sisi ?? In discussion with the attending physician, it is certified that this patient is under their careand that they, or a Nurse Practitioner,Clinical Nurse specialist or Physician Loop Tender who is working directly with them, had a face to face encounter that meets the physician face to face encounter requirements with this patient on 12/24/2021 ?? The encounter with the patient was in whole, or in part, for the following medical condition, which is the primary reason for home health care services: Catatonia ?? In discussion with the provider, it is certified that, based on their findings, the following services are medically necessary for home health services. ?? To provide the following care/treatments with the clinical findings supporting the need for services as follows: HOME HEALTH CARE AGENCY: [facility] [address] [place], [place] [id number] [place] [address] Start of care: Within 48 hours of discharge FOR MEDICARE ONLY: (please delete this section if not Medicare) In discussion with the attending physician, it is certified that the clinical findings support that this patient is homebound because absences from home require considerable and taxing effort due to: unsteady gait, dependent on assistive device, compromised mental state Please note that any additional orders needs or changes will need to be obtained from this patient'sPCP: Jose Eduardo Barboza MD [address] [place] [address] [address] [facility] [address] All VNA agencies which cover the area of patient's residence have been reviewed, either verbally or in writing, and patient/family have chosen the home health care agency noted RN ORDERS: vital signs, cardiopulmonary status, nutrition, hydration, elimination, meds effectiveness and management; reinforce education re health issues PT ORDERS: Continue rehab for endurance, gait stability and strength with mobility and transfers. Home safety evaluation. Home exercise program if appropriate. OT: assess and continue rehab for managing ADL's. Tayo Lindsay MD - 12/23/2021 12:08 PM EDT Psychiatry Inpatient - Progress Note 12/23/2021 ID: Sebas Shepherd Jr. is a 71 y.o. male admitted on 12/19/2021 for bipolar disorder with catatonia. Hospital day 4. Diagnosis: Bipolar I disorder, most recent episode (or current) manic, moderate Pertinent medical issues being addressed: None Acute Interval History: (1,1,4) Patient reported doing better, looking forward to going home, denied suicidal ideations, denied physical complaints, denied constipation or nausea, vomiting, diarrhea, denied any side effects from his medication regimen, reports he feels steady on his feet, is hard of hearing Per nursing - slept 9 hours, steady on his feet and walking without difficulty, eating without problems, denied depression or anxiety or suicidal ideations or homicidal ideations Review of Systems: (0,1,2) CONST CV RESP GI Denied nausea, vomiting, diarrhea NEURO Denied headache MS PSYCH See above Other Suicide Risk Factors on Day of Admission: Enduring Factors:??chronic mental health problems ?? Dynamic Factors:??depressive symptoms and recent diagnosis/worsening of a significant medical illness ?? Protective Factors:??family and community support and engaged in medical and/or mental health care ?? Access to Firearms:??No Physical Exam: (1,6,9) Vitals (24hr Range): Temp: [36.6 ??C (97.9 ??F)] Resp: [16] Heart Rate: [73] BP: (137)/(79) SpO2: [97 %] Patient Vitals for the past 168 hrs: Weight 12/21/21 0856 74.7 kg (164 lb 9.6 oz) 12/19/21 1622 73.8 kg (162 lb 12.8 oz) Musculoskeletal System: normal gait and balance, ambulates independently, no atrophy, no abnormal movements and no stiffness Mental Status Exam: ?? Appearance: age appropriate and laying in bed, but engaged in the interview ?? Behavior: cooperative with the interview, calm and good eye contact ?? Speech: normal pitch, normal volume, normal rhythm and spontaneous with some minimal answers to questions ?? Language: fluent in bangladeshi and without paraphasic errors ?? Mood: I feel good. ?? Affect: constricted and mood-congruent ?? Thought Process: linear, logical and normal use of abstraction ?? Associations: intact ?? Thought Content: denied homicidal ideation, denied suicidal ideation, no bizarre delusions and noparanoid delusions ?? Perception: denied auditory hallucinations denied visual hallucinations not observed responding to internal stimuli ?? Orientation: grossly intact by interview ?? Attention/Concentration: able to sustain focus, able to resist distraction and able to attend interview ?? Cognition: grossly intact by interview ?? Memory: recent and remote memory grossly intact ?? Fund of Knowledge: appropriate for age and level of functioning ?? Insight: limited ?? Judgment: limited [place] Suicide Risk Scale - Initial Assessment: Q1 Wish to be : Have you wished you were or wished you could go to sleep and not wake up?: no (12/19/211641) Q2 Suicidal Thoughts: Have you actually had any thoughts of killing yourself?: no (12/19/211641) Q6 Suicide Behavior (Lifetime): Have you ever done anything, started to do anything, or prepared to do anything to end your life?: no (12/19/211641) [place] Suicide Risk Scale - Daily Assessment (most recently completed): Suicidal Thoughts: Since you were last asked, have you had any actual thoughts of killing yourself?:No (12/23/21999) Suicide Behavior Question: Since you were last asked have you done anything, started to do anything,or prepared to do anything to end your life?: No (12/23/21999) Current Medications: Scheduled: ??? OLANZapine 7.5 mg Oral Nightly ??? LORazepam 1 mg Oral TID ??? buPROPion SR 100 mg Oral BID ??? mirtazapine 45 mg Oral Nightly ??? polyethylene glycoL (MIRALAX) oral powder 17 g Oral Daily ??? aspirin 81 mg Oral Daily ??? folic acid 1,000 mcg Oral Daily ??? melatonin 3 mg Oral Nightly ??? tamsulosin 0.4 mg Oral Daily ??? thiamine 100 mg Oral Daily PRN: polyethylene glycoL, LORazepam, acetaminophen, albuteroL, carboxymethylcellulose, senna-docusate Labs: Psychiatry Labs Preg: No results found for: HCGQUAL, HCGQUANT Heme: Lab Results Component Value Date WBC 10.1 (H) 12/19/2021 HGB 14.1 12/19/2021 HCT 41.5 12/19/2021 PLATELET 308 12/19/2021 MCV 89.8 12/19/2021 NEUTROABS 7.17 (H) 12/19/2021 No results found for: HA1C, SEDRATE Chem: Lab Results Component Value Date NA 140 12/19/2021 K 3.8 12/19/2021 CL 107 12/19/2021 CO2 22 12/19/2021 BUN 12 12/19/2021 GLUCOSE 106 12/19/2021 Lab Results Component Value Date CALCIUM 9.1 12/19/2021 MAGNESIUM 0.71 12/16/2021 PHOS 2.4 (L) 12/18/2021 LFTs: No results found for: ALT, AST, GGT, ALKPHOS, BILITOT, AMMONIA Coags: No results found for: PTT, PT, INR Thyroid: No results found for: TSH, F8QKBFS, TT4 Lipids and HgbA1C: No results found for: CHLPL, HDL, CHOLHDL, LDLCHOL, LDLDIRECT, TRIG No results found for: HA1C Vit Lvls: No results found for: [id number], SFOLATE UA: No results found for: GLUCOSEU, KETONESUA, PROTEINUADIP, BLOODUADIP, LEUKOESTERUA, NITRATEUA, WBCUA (May not represent most recent UA results. See eD-H labs for more details.) Tox: No results found for: ETHANOL, ACTMNPHEN, SALICYLATE, LEAD No results found for: UDAUSCREEN Rx Lvls: No results found for: LITHIUM, CARBAMAZEPIN, VALPROATE, LAMOTRIGINE, CLOZAPINE Assessment: (including Suicide Risk Assessment) Sebas Shepherd JrChandler is a 71 y.o. male admitted on 12/19/2021 for bipolar disorder and catatonia who is much improved after starting lorazepam. Current Suicide Assessment: Patient at increased risk compared to general population given history of bipolar disorder. Reverting to his baseline as he is becoming more functional and able to care for himself since being admitted to the psychiatry unit. Diagnosis: Bipolar I disorder, most recent episode (or current) manic, moderate Plan: #??BPAD (Bipolar Affective Disorder) with catatonia ?? Buproprion 100mg BID ?? Continue??PO lorazepam 1 mg PO TID for catatonia ?? Mirtazapine 45mg qhs ?? Olanzapine 7.5mg po QHS #??Home Medications -ASA 81mg QD -Folic Acid 1mg QD -Magnesium 400mg -Melatonin 3mg qhs -Polyethylene glycol 17 g QD -Sennosides-Docusate 2 caps BID -Tamsulosin 0.4 mg QD -Thiamine 100mg QD? PRNs -Tylenol 650 mg q6h for pain -albuterol neb q6h -carboxymethylcellulose eye drops both eyes TID -Miralax daily orn -Pericolace daily prn ?? # Suicide Risk Mitigation ? Q15 minute nurse checks ?? Low ligature environment ?? Medication optimization ?? Therapeutic milieu environment ?? # Disposition: -After stabilization, patient expected to return home. Outpatient Care: Provider Name Date Contacted By Treatment Team Current Mental Health Prescriber Current Therapist PCP Jose Eduardo Barboza MD Patient Instruction/Education Provided: Patient provided verbal instructions during rounds regardingthe treatment plan. I have reviewed and agree with the multidisciplinary treatment plan. I certify that the patient requires inpatient care for psychiatric treatment for safety, stabilization, and any other therapeutic intervention that could conceivably improve the patient's condition, including medication management, group psychotherapy, establishing adequate outpatient care, and/or diagnostic study. Signed By: Tayo Lindsay MD 12/23/2021 Rafia Lindsay, [facility] - 12/23/2021 10:22 AM EDT Inpatient Daily Group Note Group: Goals Attendance: Present Behavior: Quiet Therapeutic Work Observed: Minimal Mood: Detached Notes: Discussed group expectations of attending groups at the designated time as well as attemptingto remain for the whole group. Reviewed unit details, such as laundry, menu planning, and maintaining clean and safe living areas. Reviewed group norms; no food, no leaving for the bathroom unless necessary, and water only. Explained daily room checks and the rationale for doing so. Patient goal: Get ready to be discharged tomorrow. Rafia Lindsay [facility] 12/23/2021 Rehana Pollack RN - 12/22/2021 9:07 PM EDT OUTCOME EVALUATION NOTE: OUTCOME SUMMARY: Pt visible in bed observed resting this evening. Pt is calm, pleasant, and cooperative, engaging minimally during conversation with one word responses. Describes current mood is relaxed. Denies anxiety, depression, SI, HI, AVH. Pt agreed he feels safe on unit and if this changes to notify nursing staff. Denies physical pain. Reported last bowel movement was today. OOB to nurse station with walker and SBA for scheduled medications, gait is steady. Med compliant. Tap grewal is at bedside. [place] Suicide Severity Rating Scale: Initial Risk: Daily Risk: Low Risk (12/22/212029) The following nursing interventions and strategies were implemented to mitigate suicide risk: Full room search conducted Medication as needed Distract with activities Scheduled check in with nursing Therapeutic communications/listening Positive reinforcement Ongoing safety measures include: Ligature resistant environment of care provided Every 15 minutes safety checks Twice daily environment of care safety sweeps and individual room checks Silverware counted Door to room remains open PLAN MOVING FORWARD: Monitor mood and behavior, administer meds as ordered, discharge planning INDIVIDUALIZED FALL PREVENTION INTERVENTIONS: Patient-specific fall risk factors per assessment: [current deficits]: Hospital environment, med side effects, use of walker, Hx of falls, High fall risk Assistance [level of assistance required for transfers and ambulation]: SBA with walker Supervision [direct monitoring required during toileting and ADLs]: SBA Surveillance [continuous indirect monitoring]: Q15 minute checks Patient-specific fall prevention interventions for sensory deficits provided, if applicable: [X] No CARE PLAN GOAL OUTCOME EVALUATION: Gayla Ludwig RN - 12/22/2021 12:28 PM EDT OUTCOME EVALUATION NOTE: OUTCOME SUMMARY: Patient reports sleeping well and being in a good mood. Patient is visible on unit looking at magazines with minimal interaction with peers and staff. Patient denies depression, anxiety, SI/HI/AVH and pain. Patient states he has a good appetite and last BM today. Patient states he feels safe on the unit and verbally agrees to contact staff if feeling unsafe. At 1715 Pt's came to this fiction and nonfiction writer prose inquired if the team had spoken with patient this morning. Pt stated that he is saying he doesn't remember speaking with anybody. Pt expressing concern with potential discharge if is having memory issues/if he has not met with the team. This fiction and nonfiction writer prose assured her that the team did meet with him this morning. [place] Suicide Severity Rating Scale: Initial Risk: Daily Risk: Low Risk (12/22/21 1200) The following nursing interventions and strategies were implemented to mitigate suicide risk: Medication as needed Worked with patient to develop a safety plan Identify protective barriers Prompted deep breathing / relaxation techniques Distract with activities Groups for skill building Reviewed Values with patient Scheduled check in with nursing Patient to work on Relapse Prevention Plan Assist patient in developing a safe discharge plan Therapeutic communications/listening Positive reinforcement Ongoing safety measures include: Ligature resistant environment of care provided Every 15 minutes safety checks Twice daily environment of care safety sweeps and individual room checks Silverware counted Door to room remains open PLAN MOVING FORWARD: Monitor mood and behavior, medication management, groups to increase coping skills, discharge planning, positive reinforcement and emotional support as needed. INDIVIDUALIZED FALL PREVENTION INTERVENTIONS: Patient-specific fall risk factors per assessment: [current deficits]: Hospital environment, hx of fall, use of assistive devices Assistance [level of assistance required for transfers and ambulation]: Independent with walker Supervision [direct monitoring required during toileting and ADLs]: Independent with walker Surveillance [continuous indirect monitoring]: Q15 minute safety checks, ETG Patient-specific fall prevention interventions for sensory deficits provided, if applicable: [X] N/A CARE PLAN GOAL OUTCOME EVALUATION: Devora Alcala MD - 12/22/2021 12:19 PM EDT Psychiatry Inpatient - Progress Note 12/22/2021 ID: Sbeas Shepherd Jr. is a 71 y.o. male admitted on 12/19/2021 hx of BPAD 1,??likely dementia, recent episode of catatonia per , HTN, HLD, and BPH??who presented to valuation of his ankle pain in addition to concerns??of two month presentation of altered MS and functioning.. Hospital day 3. Current Working Primary Diagnosis: Bipolar I disorder, most recent episode (or current) manic, moderate Interval History: (1,1,4) Patient feels well today. He tolerated the increase in his olanzapine well with no adverse effects. No unsafe behaviors observed nor reported. He is looking forward to discharging later this week. Review of Systems: (0,1,2) CONST Denies discomfort nor pain CV RESP GI NEURO PSYCH See above. Physical Exam: (1,6,9) Vitals (24hr Range): Temp: -- Resp: -- Heart Rate: -- BP: -- SpO2: -- Patient Vitals for the past 168 hrs: Weight 12/21/21 0856 74.7 kg (164 lb 9.6 oz) 12/19/21 1622 73.8 kg (162 lb 12.8 oz) Musculoskeletal System: normal gait and balance, ambulates independently, no atrophy and no abnormal movements Mental Status Exam: ? Appearance: age appropriate and well groomed ? Behavior: cooperative with the interview and intermittent eye contact ? Speech: Spoke in short sentances with loud volume (hard of hearing and without hearing aid) and normal rate ? Language: fluent in bangl[place] ? Mood: fine ? Affect: constricted and mood-congruent ? Thought Process: linear, logical and concrete ? Associations: intact ? Thought Content: denied homicidal ideation, denied suicidal ideation and no paranoid delusions ? Perception: denied auditory hallucinations denied visual hallucinations not observed responding tointernal stimuli ? Orientation: grossly oriented ? Attention/Concentration: able to sustain focus and able to resist distraction ? Cognition: grossly intact by interview ? Memory: recent and remote memory grossly intact ? Fund of Knowledge: appropriate for age and level of functioning ? Insight: poor ? Judgment: poor Current Medications: Scheduled: ??? OLANZapine 7.5 mg Oral Nightly ??? enoxaparin 40 mg Subcutaneous Nightly ??? LORazepam 1 mg Oral TID ??? buPROPion SR 100 mg Oral BID ??? mirtazapine 45 mg Oral Nightly ??? polyethylene glycoL (MIRALAX) oral powder 17 g Oral Daily ??? aspirin 81 mg Oral Daily ??? folic acid 1,000 mcg Oral Daily ??? melatonin 3 mg Oral Nightly ??? tamsulosin 0.4 mg Oral Daily ??? thiamine 100 mg Oral Daily PRN: polyethylene glycoL, LORazepam, acetaminophen, albuteroL, carboxymethylcellulose, senna-docusate Labs: Last 24 Hours: No results found for this or any previous visit (from the past 24 hour(s)). Psychiatry Labs: Preg: No results found for: HCGQUAL, HCGQUANT Heme: Lab Results Component Value Date WBC 10.1 (H) 12/19/2021 HGB 14.1 12/19/2021 HCT 41.5 12/19/2021 PLATELET 308 12/19/2021 MCV 89.8 12/19/2021 NEUTROABS 7.17 (H) 12/19/2021 No results found for: HA1C, SEDRATE Chem: Lab Results Component Value Date NA 140 12/19/2021 K 3.8 12/19/2021 CL 107 12/19/2021 CO2 22 12/19/2021 BUN 12 12/19/2021 GLUCOSE 106 12/19/2021 Lab Results Component Value Date CALCIUM 9.1 12/19/2021 LFTs: No results found for: ALT, AST, GGT, ALKPHOS, BILITOT, AMMONIA Coags: No results found for: PTT, PT, INR Thyroid: Lab Results Component Value Date TSH 1.51 12/08/2021 Lipids and HgbA1C: No results found for: CHLPL, HDL, CHOLHDL, LDLCHOL, LDLDIRECT, TRIG No results found for: HA1C Vit Lvls: Lab Results Component Value Date [id number] 12/08/2021 UA: No results found for: GLUCOSEU, KETONESUA, PROTEINUADIP, BLOODUADIP, LEUKOESTERUA, NITRATEUA, WBCUA (May not represent most recent UA results. See eD-H labs for more details.) Tox: No results found for: ETHANOL, ACTMNPHEN, SALICYLATE, LEAD No results found for: UDAUSCREEN Rx Lvls: No results found for: LITHIUM, CARBAMAZEPIN, VALPROATE, LAMOTRIGINE, CLOZAPINE Assessment: Sebas Shepherd Jr. is a 71 y.o. male admitted on 12/19/2021 hx of BPAD 1,??likely dementia, recent episode of catatonia per , HTN, HLD, and BPH??who presented to valuation of his ankle pain in addition to concerns??of two month presentation of altered MS and functioning. 12/22/21 Patient with stable mood, anxiety and sleep. No significant mood symptoms appreciated. No unsafe thoughts nor behaviors. Titrating olanzapine to reduce risk for major mood episodes, patient tolerated uptitration well. Working to discharge Wednesday of this week. Spoke to Dr. Brooks who treats Sebas for BPAD1. Dr. Brooks explains that after Sebas was discharged from [facility], he seemed catatonic, anhedonic, unable to get out of bed. He is in agreement withour treatment plan of 1mg po ativan TID for his catatonia and will continue to manage after Sebas is discharged. Current Working Primary Diagnosis: Bipolar I disorder, most recent episode (or current) manic, moderate Clinical Global Impression Severity of illness: Considering your total clinical experience with this particular population, howmentally ill is the patient at this time? 2 = Borderline mentally ill Global improvement: Rate total improvement compared to condition at admission, how much has she changed? Minimally Improved Plan: #Catatonia?? #Acute delirium, improving -Continue??PO lorazepam 1 mg PO TID -Lorazepam 1 mg prn daily for anxiety -Continue search for potential medical inciting factor for presentation, although as of now, no clear culprits identified ?? #Acute mental status change??(likely in conjunction with dementia though no formal dx) ? Consider obtaining MRI and consulting neurology ?? #??BPAD ?? Buproprion 100mg BID ?? Mirtazapine 45mg qhs ?? Olanzapine 7.5mg po QHS ?? F/U with outpatient provider to determine why patient not on mood stabilizer (generally 2nd gen antipsychotics alright with catatonia but 1st gen - ex: haldol - should be avoided) ?? #??Home Medications -ASA 81mg QD -Folic Acid 1mg QD -Magnesium 400mg -Melatonin 3mg qhs -Polyethylene glycol 17 g QD -Sennosides-Docusate 2 caps BID -Tamsulosin 0.4 mg QD -Thiamine 100mg QD? PRNs -Tylenol 650 mg q6h for pain -albuterol neb q6h -carboxymethylcellulose eye drops both eyes TID -Miralax daily orn -Pericolace daily prn ?? # Suicide Risk Mitigation ?? Q15 minute nurse checks ?? Low ligature environment ?? Medication management ?? Therapeutic milieu environment # Disposition: -After stabilization, patient expected to return home. Additional Information: Patient Instruction/Education Provided: Patient provided verbal instructions during rounds regardingthe treatment plan. I have reviewed and agree with the multidisciplinary treatment plan. I certify that the patient requires inpatient care for psychiatric treatment for safety, stabilization, and any other therapeutic intervention that could conceivably improve the patient's condition, including medication management, group psychotherapy, establishing adequate outpatient care, and/or diagnostic study. Signed By: Devora Alcala MD 12/22/2021 Associated attestation - Tayo Lindsay MD - 12/22/2021 3:53 PM EDT INPATIENT PSYCHIATRY TEACHING PHYSICIAN INVOLVEMENT I saw and evaluated the patient with the above named resident/ See their note for details.. I reviewed the patient's history during the visit and I agree with the details as written. My exam confirms the resident's findings. The assessment and plan were formulated in discussion with me and I agree with them as documented. Major issues addressed/discussed: Bipolar Disorder - Continue current medication regimen. Patient appears much improved on olanzapine and lorazepam. Group and milieu therapy to address coping skills. Additional comments: Did not endorse nausea, vomiting, diarrhea or constipation I certify that the patient requires inpatient care for psychiatric treatment for safety, stabilization, and any other therapeutic intervention that could conceivably improve the patient's condition, including medication management, group psychotherapy, establishing adequate outpatient care, and/or diagnostic study. Maria Eugenia Rowell RN - 12/22/2021 11:00 AM EDT Telephone call to patient's Sisi ([phone]), with patient's permission. Voicemail left with this fiction and nonfiction writer prose's contact information for the purpose of obtaining collateral information and coordination of care. Will continue to include family in care planning. Rafia Lindsay [facility] - 12/22/2021 10:26 AM EDT Inpatient Daily Group Note Group: Goals Attendance: Present Behavior: Quiet and Preoccupied Therapeutic Work Observed: Minimal Mood: Detached Notes: Discussed group expectations of attending groups at the designated time as well as attemptingto remain for the whole group. Reviewed unit details, such as laundry, menu planning, and maintaining clean and safe living areas. Reviewed group norms; no food, no leaving for the bathroom unless necessary, and water only. Explained daily room checks and the rationale for doing so. Patient goal: Don't worry, be happy. [facility] [place] 12/22/2021 Eduardo Arguello DO - 12/21/2021 11:48 AM EDT Psychiatry Inpatient - Progress Note 12/21/2021 ID: Sebas Padgett Shepherd . is a 71 y.o. male admitted on 12/19/2021 hx of BPAD 1,??likely dementia, recent episode of catatonia per , HTN, HLD, and BPH??who presented to valuation of his ankle pain in addition to concerns??of two month presentation of altered MS and functioning.. Hospital day 2. Current Working Primary Diagnosis: Bipolar I disorder, most recent episode (or current) manic, moderate Interval History: (1,1,4) Patient reporting stable mood today. Undergoing increase in olanzapine to address risk for bipolar hussain. No unsafe behaviors observed nor reported. Review of Systems: (0,1,2) CONST Denies discomfort nor pain CV RESP GI NEURO PSYCH See above. Physical Exam: (1,6,9) Vitals (24hr Range): Temp: [36.7 ??C (98.1 ??F)] Resp: [16] Heart Rate: [67] BP: (139)/(63) SpO2: [99 %] Patient Vitals for the past 168 hrs: Weight 12/21/21 0856 74.7 kg (164 lb 9.6 oz) 12/19/21 1622 73.8 kg (162 lb 12.8 oz) Musculoskeletal System: normal gait and balance, ambulates independently, no atrophy and no abnormal movements Mental Status Exam: ? Appearance: age appropriate and well groomed ? Behavior: cooperative with the interview and intermittent eye contact ? Speech: Spoke in short sentances with loud volume (hard of hearing and without hearing aid) and normal rate ? Language: fluent in [place] ? Mood: I'm okay... ? Affect: constricted and mood-congruent ? Thought Process: linear, logical and concrete ? Associations: intact ? Thought Content: denied homicidal ideation, denied suicidal ideation and no paranoid delusions ? Perception: denied auditory hallucinations denied visual hallucinations not observed responding tointernal stimuli ? Orientation: person, place, time and date ? Attention/Concentration: able to sustain focus and able to resist distraction ? Cognition: grossly intact by interview ? Memory: recent and remote memory grossly intact ? Fund of Knowledge: appropriate for age and level of functioning ? Insight: poor ? Judgment: poor Current Medications: Scheduled: ??? OLANZapine 7.5 mg Oral Nightly ??? enoxaparin 40 mg Subcutaneous Nightly ??? LORazepam 1 mg Oral TID ??? buPROPion SR 100 mg Oral BID ??? mirtazapine 45 mg Oral Nightly ??? polyethylene glycoL (MIRALAX) oral powder 17 g Oral Daily ??? aspirin 81 mg Oral Daily ??? folic acid 1,000 mcg Oral Daily ??? melatonin 3 mg Oral Nightly ??? tamsulosin 0.4 mg Oral Daily ??? thiamine 100 mg Oral Daily PRN: polyethylene glycoL, LORazepam, acetaminophen, albuteroL, carboxymethylcellulose, senna-docusate Labs: Last 24 Hours: No results found for this or any previous visit (from the past 24 hour(s)). Psychiatry Labs: Preg: No results found for: HCGQUAL, HCGQUANT Heme: Lab Results Component Value Date WBC 10.1 (H) 12/19/2021 HGB 14.1 12/19/2021 HCT 41.5 12/19/2021 PLATELET 308 12/19/2021 MCV 89.8 12/19/2021 NEUTROABS 7.17 (H) 12/19/2021 No results found for: HA1C, SEDRATE Chem: Lab Results Component Value Date NA 140 12/19/2021 K 3.8 12/19/2021 CL 107 12/19/2021 CO2 22 12/19/2021 BUN 12 12/19/2021 GLUCOSE 106 12/19/2021 Lab Results Component Value Date CALCIUM 9.1 12/19/2021 PHOS 2.4 (L) 12/18/2021 LFTs: No results found for: ALT, AST, GGT, ALKPHOS, BILITOT, AMMONIA Coags: No results found for: PTT, PT, INR Thyroid: Lab Results Component Value Date TSH 1.51 12/08/2021 Lipids and HgbA1C: No results found for: CHLPL, HDL, CHOLHDL, LDLCHOL, LDLDIRECT, TRIG No results found for: HA1C Vit Lvls: Lab Results Component Value Date [id number] 12/08/2021 UA: No results found for: GLUCOSEU, KETONESUA, PROTEINUADIP, BLOODUADIP, LEUKOESTERUA, NITRATEUA, WBCUA (May not represent most recent UA results. See eD-H labs for more details.) Tox: No results found for: ETHANOL, ACTMNPHEN, SALICYLATE, LEAD No results found for: UDAUSCREEN Rx Lvls: No results found for: LITHIUM, CARBAMAZEPIN, VALPROATE, LAMOTRIGINE, CLOZAPINE Assessment: Sebas Shepherd is a 71 y.o. male admitted on 12/19/2021 hx of BPAD 1,??likely dementia, recent episode of catatonia per , HTN, HLD, and BPH??who presented to valuation of his ankle pain in addition to concerns??of two month presentation of altered MS and functioning. 12/21/21 Patient with stable mood, anxiety and sleep. No significant mood symptoms appreciated. No unsafe thoughts nor behaviors. Titrating olanzapine to reduced risk for major mood episodes. Will continue titrate as indicated however likely ready for discharge early this week. Current Working Primary Diagnosis: Bipolar I disorder, most recent episode (or current) manic, moderate Clinical Global Impression Severity of illness: Considering your total clinical experience with this particular population, howmentally ill is the patient at this time? 2 = Borderline mentally ill Global improvement: Rate total improvement compared to condition at admission, how much has she changed? Minimally Improved Plan: #Catatonia?? #Acute delirium, improving -Continue??PO lorazepam 1 mg PO TID -Lorazepam 1 mg prn daily for anxiety -Continue search for potential medical inciting factor for presentation, although as of now, no clear culprits identified ?? #Acute mental status change??(likely in conjunction with dementia though no formal dx) ? Consider obtaining MRI and consulting neurology ?? #??BPAD ?? Buproprion 100mg BID ?? Mirtazapine 45mg qhs ?? Olanzapine 5mg po QHS, increase to 7.5 mg 12/21 ?? F/U with outpatient provider to determine why patient not on mood stabilizer (generally 2nd gen antipsychotics alright with catatonia but 1st gen - ex: haldol - should be avoided) ?? #??Home Medications -ASA 81mg QD -Folic Acid 1mg QD -Magnesium 400mg -Melatonin 3mg qhs -Polyethylene glycol 17 g QD -Sennosides-Docusate 2 caps BID -Tamsulosin 0.4 mg QD -Thiamine 100mg QD? PRNs -Tylenol 650 mg q6h for pain -albuterol neb q6h -carboxymethylcellulose eye drops both eyes TID -Miralax daily orn -Pericolace daily prn ?? # Suicide Risk Mitigation ?? Q15 minute nurse checks ?? Low ligature environment ?? Medication management ?? Therapeutic milieu environment # Disposition: -After stabilization, patient expected to return home. Additional Information: Patient Instruction/Education Provided: Patient provided verbal instructions during rounds regardingthe treatment plan. I have reviewed and agree with the multidisciplinary treatment plan. I certify that the patient requires inpatient care for psychiatric treatment for safety, stabilization, and any other therapeutic intervention that could conceivably improve the patient's condition, including medication management, group psychotherapy, establishing adequate outpatient care, and/or diagnostic study. Signed By: Eduardo Arguello DO 12/21/2021 Ahsley Avila - 12/21/2021 10:36 AM EDT Inpatient Daily Group Note Group: Goals Attendance: Present Behavior: Quiet Therapeutic Work Observed: Minimal Mood: Calm Notes: Discussed group expectations of attending group at the designated time as well as remaining in group for the full length. Examined unit details such as laundry, menu planning and maintaining clean living areas. Reviewed group norms; no food, no leaving for the bathroom and water only. Explainedtwice daily room checks and rationale for doing so. Patient goal: Get all the things I can out of being here Ashley Avila 12/21/2021 Patient attended the following therapeutic activities: _x_Workshop __ Walk __Exercise and Stretching Group __Pet Therapy __On unit activity Significant observations: Ashley Avila MS Gayla Ludwig RN - 12/21/2021 10:02 AM EDT OUTCOME EVALUATION NOTE: OUTCOME SUMMARY: Patient reports sleeping great and is a good mood. Patient is pleasant and cooperative during nurse check in. Patient visible on unit sitting in common area looking at magazines. Patient denies depression, anxiety, SI/HI/AVH. Patient rates pain 3/10 in foot but states he does not need any medication for pain relief. Patient states appetite is great and had a BM this morning. Pt attended goals group and workshop today as well as showering in the evening. Pt seen on unit engaging with staff and with during visiting hours. [place] Suicide Severity Rating Scale: Initial Risk: Daily Risk: Low Risk (12/21/21 0900) The following nursing interventions and strategies were implemented to mitigate suicide risk: Medication as needed Worked with patient to develop a safety plan Identify protective barriers Prompted deep breathing / relaxation techniques Distract with activities Groups for skill building Reviewed Values with patient Scheduled check in with nursing Patient to work on Relapse Prevention Plan Assist patient in developing a safe discharge plan Therapeutic communications/listening Positive reinforcement Ongoing safety measures include: Ligature resistant environment of care provided Every 15 minutes safety checks Twice daily environment of care safety sweeps and individual room checks Silverware counted Door to room remains open PLAN MOVING FORWARD: Monitor mood and behavior, medication management, discharge planning, groups to increase coping skills, positive reinforcement and emotional support as needed. INDIVIDUALIZED FALL PREVENTION INTERVENTIONS: Patient-specific fall risk factors per assessment: [current deficits]: Hospital environment, use of assistive devices Assistance [level of assistance required for transfers and ambulation]: Independent with walker Supervision [direct monitoring required during toileting and ADLs]: Independent with walker Surveillance [continuous indirect monitoring]: Q15 minute safety checks, ETG Patient-specific fall prevention interventions for sensory deficits provided, if applicable: [X] N/A CARE PLAN GOAL OUTCOME EVALUATION: Rafia Bowman RN - 12/19/2021 5:54 PM EDT Received report from IBAN Kaur. Pt arrived on [address] [place] [address] with spouse around 1630, disoriented to situation and with difficulty hearing but per pt's , pt refuses to wear his hearing aids. Belongings searched and skin check benign. Pt denied SI, reports understanding to notify staff if feeling unable to manage his safety. MD bedside to assess and talk with patient and spouse. Pt's spouse reported that patient does not have difficulty with chewing/swallowing, diet order updated to regular.Pt ambulated to room with front wheel walker. Spouse reported to this RN that patient is 'stressed' with transfer here and wants to spend time resting in his room for the evening. documented in this encounter H&P Notes Taoy Jane MD - 12/19/2021 3:53 PM EDT Psychiatry Inpatient Admission - History & Physical Note 12/19/2021 Name: Sebas Shepherd Jr. Age: 71 y.o. Gender: Male Marital Status: (Isabel Shepherd) Children: Daughter Employment: Not employed Residence: [address] [place] [address] Outpatient Providers: (include location) Current Mental Health Prescriber: Dr. Brooks Current Therapist: PCP: Jose Eduardo Barboza MD Chief Complaint: Sebas Shepherd is a 71 y.o. Male with hx of BPAD 1, likely dementia, recent episode of catatonia per , HTN, HLD, and BPH who presented to valuation of his ankle pain in addition to concerns of two month presentation of altered MS and functioning. Interval History: (1,1,4) 71 year old male BPAD type 1 catatonia htn, hld, bph, cognitive impairment being admitted as a transfer from medicine for catatonia. Outside hospital was initial suspicious if his gabbie was real vs behavioral but improved on ativan, scored on carter sara. Patient has been very delusional. Team has been slowly up-titrating zyprexa to 5 mg qhs right now. said hes been laying in bed for past 3 months and describes a picture of unresovled mood/derpssion sx/delusional thinking. Has a great relationship with his outpatient psychiatrist Dr. Brooks. Pt is very hard of hearing. Per Dr. Mao's Initial Consult note: Per Isabel Shepherd (): ?? She states that for the past couple of days, his ankle had pain and patient has had chronic ankle pain. Anytime she tried to get him out of bed, he would refuse saying his ankle hurt. Therefore, this is why they originally brought him to the emergency room. ?? She states that two months ago, the patient had an acute change where he began wetting himself and wouldn't get out of bed. Hasn't been eating, has lost 30 lb in the past few months which is unusual for him. She states he just lays in bed all day, and when they try to get him up he'll refuse. ?? The states that a few weeks ago, he was at [facility] for five days to be treated for catatonia which was his first ever episode of this. She states that following this treatment with Ativan, he showed some improvement as he began to talk and eat a little bit more however it was stillfar off from his baseline. She states during that episode, he looked similar to how it looks on current exam where he is hunched over staring straight ahead with the fixed gaze. She states the main differences that he was not grunting during the prior catatonic episode and currently, the patient is continuously grunting. ?? She states initially, it was thought that the patient was having seizures as at times during episodes, his eyes will bulge out and that he was evaluated for this at [facility] but that EEG did not show seizure activity. She states that the patient was informally diagnosed with dementia approximately one year ago however they have a formal neurology appointment 12/31 - [facility]. Althoughno formal diagnosis exists, notes several odd behaviors stating that he may, he would throw away things such as brand-new glasses into the montaño, binoculars into the garbage. ?? She states the patient does have a psychiatrist Dr. Brooks who recently we develop of [place] and last saw him one week ago. Per , Dr. Brooks said [facility] and that he should be weaned off. ?? [facility] and per , was discharged as they were told that his issues were behavior rather than medical. ?? Additionally, should be noted that the patient was recently at [facility] where he was diagnosed with pneumonia and a urinary tract infection which is why he is currently on antibiotics. On my interview Sebas was hard of hearing and required shouting and simple sentences. His Isabel says he threw away his hearing aid and glasses within the past year and refuses to use either. He also cut the seatbelts out of their car in [place] where they spend posey, and example she gave of thepatterns of odd behavior he's been engaging in over the past year. His describes the precipitous drop off as noted above where Sebas would not leave his bed for the past 3 months. When asked about this, Sebas says he was staying in bed because he was tired. Asked if he wants to be out of bed more he replied it depends what their is to do. His goals for the stay are to leave. The fiction and nonfiction writer prose described the improvements in independence/self care the Sebas will need to accomplish before leaving. Sebas denied any ankle pain or other physical pain. He denied SI/HI/AVH. Said he feels safe on the unit. Is able to ambulate with walker and use restroom independently, though notes a few days ago he soiled himself. He was initially placed on mechanical soft diet due to breathing concerns he struggled with earlier (determined to be psychogenic) but that issues has resolved and eSbas and would like return to regular diet. Psychiatric Review of Systems: ? Sustained Depressed Mood: Yes - per on answered questions Sustained Elevated Mood: Yes Sustained Irritable Mood: Yes Flashbacks: No Nightmares: No Panic Attacks: No Chronic Worry: No Psychotic Symptoms: No Obsessions/Compulsions: No Violence: No Self Harm: No ?? Suicide Risk Factors on Day of Admission: Enduring Factors: chronic mental health problems ?? Dynamic Factors: depressive symptoms and recent diagnosis/worsening of a significant medical illness ?? Protective Factors: family and community support and engaged in medical and/or mental health care ?? Access to Firearms: No Other Psychiatric History: Per chart review with relevant updates: Prior diagnoses: -BPAD1 ?? Past hospitalization and location: -hospitalized for hussain -several hospitalizations for mental health reasons over the past 26 years including at [facility], [facility] [place], these have ranged from a 1 to 8-month hospitalization. ??last psych hospitalization years ago. -[facility] (Geriatric Mental Health Unit)??at[facility] in [place], [place] that went throughnovember.? Suicide attempt details: -denies ?? Past psychiatric medications: ?? -not known ?? Current medications: ASA QD Buproprion 100mg BID Cefuroxime 500mg BID (pneumonia and UTI last week) Folic Acid 1mg QD Ativan 1mg BID (which gives as scheduled) Magnesium 400mg Melatonin 3mg qhs Mirtazapine 45mg qhs Polyethylene glycol 17 g QD Sennosides-Docusate 2 caps BID Tamsulosin 0.4 mg QD Thiamine 100mg QD ?? Substance Use History/Treatment: Denies Audit-C Tobacco Use Status (Tob-1) 1. How often do you have a drink containing alcohol? Never - (0 pt) 2. How many standard drinks containing alcohol do you have a typical day? 0 - (0pt) 3. How often do you have six or more drinks on one occasion? Never - (0pt) Total Score: 0 In men, a score of 4 or more is considered positive, optimal for identifying hazardous drinking or active alcohol use disorder. In women, a score of 3 or more is considered positive (same as above). Tobacco Use Status (Tob-1): Have you used tobacco products in the past 30 days? No (If yes, list type of tobacco, volume used and time frame e.g. # of years). Tobacco Use Treatment (Tob-2 - Medication) Would you like a medication to help with tobacco cessation? No Tobacco Use Treatment (Tob-2 - Counseling) Would you like counseling for help with quitting tobacco? No Outpatient Medications: Current Facility-Administered Medications on File Prior to Encounter Medication Dose Route Frequency Provider Last Rate Last Admin ??? [COMPLETED] simethicone (Mylicon) 80 mg chewable tablet 80 mg 80 mg Oral Once Chato Helms DO 80 mg at 12/19/21 0504 ??? OLANZapine (ZyPREXA) tablet 5 mg 5 mg Oral Nightly Joseph Almaraz MD 5 mg at 12/18/212005 ??? carboxymethylcellulose (Refresh Plus) 0.5 % ophthalmic drops 1 drop 1 drop Both Eyes TID PRN Joseph Almaraz MD 1 drop at 12/18/21 1653 ??? LORazepam (Ativan) tablet 1 mg 1 mg Oral TID Joseph Almaraz MD 1 mg at 12/19/21 1446 Or ??? midazolam (pf) (Versed) (1 mg/mL) injection 2 mg 2 mg Intravenous TID Joseph Almaraz MD ??? fluticasone propionate (Flonase) 50 mcg/actuation nasal spray 2 spray 2 spray Each Nare Daily El Nice MD 2 spray at 12/19/21 0847 ??? sodium chloride ([place]) 0.65 % nasal spray 2 spray 2 spray Each Nare BID El Nice MD 2 spray at 12/19/21 0850 ??? LORazepam (Ativan) tablet 1 mg 1 mg Oral Daily PRN El Nice MD ??? albuteroL (Proventil) nebulizer solution 2.5 mg 2.5 mg Nebulization Q6H PRN Abdulkadir Jolley MD 2.5 mg at 12/11/212042 ??? aspirin chewable tablet 81 mg 81 mg Oral Daily Abdulkadir Jolley MD 81 mg at 12/19/21 0848 ??? buPROPion SR (Wellbutrin SR) tablet 100 mg 100 mg Oral BID Abdulkadir Jolley MD 100 mg at ??? mirtazapine (Remeron) tablet 45 mg 45 mg Oral Nightly Abdulkadir Jolley MD 45 mg at 12/18/212005 ??? polyethylene glycoL (Miralax) packet 17 g 17 g Oral Daily PRN Abdulkadir Jolley MD ??? senna-docusate (Pericolace) 8.6-50 mg per tablet 1 tablet 1 tablet Oral Daily PRN Abdulkadir Jolley MD ??? tamsulosin (Flomax) capsule 0.4 mg 0.4 mg Oral Nightly Abdulkadir Jolley MD 0.4 mg at 12/18/212005 ??? thiamine (Vitamin B1) tablet 100 mg 100 mg Oral Daily Abdulkadir Jolley MD 100 mg at 12/19/21 0848 ??? sodium chloride 0.9 % (flush) (BD PosiFlush Normal Saline 0.9) flush 5 mL 5 mL Intravenous BID Abdulkadir Jolley MD 5 mL at 12/19/21 0854 ??? sodium chloride 0.9 % (flush) (BD PosiFlush Normal Saline 0.9) flush 5-20 mL 5-20 mL IntravenousQ1 Min PRN Abdulkadir Jolley MD 5 mL at 12/19/21 0853 ??? lidocaine (Xylocaine) 1% (10 mg/mL) injection 3 mg 0.3 mL Subcutaneous Once PRN Abdulkadir Jolley MD ??? enoxaparin (Lovenox) (40 mg/0.4 mL) subcutaneous injection 40 mg 40 mg Subcutaneous Nightly Abdulkadir Jolley MD 40 mg at 12/18/212005 ??? acetaminophen (Tylenol) tablet 650 mg 650 mg Oral Q6H PRN Abdulkadir Jolley MD 650 mg at 12/14/21 2140 ??? melatonin tablet 3 mg 3 mg Oral Nightly Abdulkadir Jolley MD 3 mg at 12/18/212005 Current Outpatient Medications on File Prior to Encounter Medication Sig Dispense Refill ??? OLANZapine (ZyPREXA) 5 mg Tablet Take 1 tablet by mouth nightly. ??? LORazepam (Ativan) 1 mg Tablet Take 1 tablet by mouth 3 times daily. 30 tablet 0 ??? aspirin 81 mg Tablet, Chewable Take 81 mg by mouth daily. ??? buPROPion SR (Wellbutrin SR) 200 mg tablet sustained-release 12 hr Take 200 mg by mouth 2 times daily. ??? folic acid (Folvite) 1 mg Tablet Take 1 mg by mouth daily. ??? LORazepam (Ativan) 1 mg Tablet Take 1 mg by mouth 2 times daily as needed for Anxiety. ??? magnesium oxide (Mag-Ox) 400 mg (241.3 mg magnesium) Tablet Take 400 mg by mouth daily. ??? melatonin 3 mg Tablet Take 3 mg by mouth nightly. ??? mirtazapine (REMERON) 45 mg Tablet Take 45 mg by mouth nightly. ??? polyethylene glycoL (Miralax) 17 gram Powder in Packet Take 17 g by mouth daily. ??? senna-docusate (Pericolace) 8.6-50 mg Tablet Take 1 tablet by mouth daily. ??? tamsulosin (Flomax) 0.4 mg Capsule Take 0.4 mg by mouth daily. ??? thiamine (Vitamin B1) 100 mg Take 100 mg by mouth Daily. Allergies: Allergies Allergen Reactions ??? Hymenoptera Allergenic Extract Other reaction(s): anaphylaxis/angioedema ??? Venom-Wasp Problem List: Patient Active Problem List Diagnosis Code ??? Altered mental status R41.82 ??? Bipolar I disorder, most recent episode (or current) manic, moderate F31.12 ??? Obtundation R40.1 ??? Catatonia F06.1 Past Medical/Surgical History: No past medical history on file. No past surgical history on file. Family Medical/Psychiatric History: Not lnown Social History: He lives at home with his and daughter in [facility] (daughter's home) but they are having a hard time caring for him at home in his present state. Traditionally spends [place]. History of Abuse or Neglect: Not known Legal History: Not known Pain Assessment: Recent pain severity: 0/10 (10=worst) Location of pain due to medical condition: Controlled with use of: Review of Systems: CONST no fever EYES No Vision changes ENT No sore throat CV no angina and no palpitations RESP no shortness of breath GI no nausea and no vomiting /[employer] (include LMP if applicable) No hematuria MSK No joint stiffness SKIN No rash NEURO no headache PSYCH See above ENDO HEME/LYMPH ALL/IMMUNO Physical Exam: Vitals Flowsheet Row ED to Hosp-Admission (Current) from 12/08/2021 in [facility] Temp 36.6 ??C (97.9 ??F) Temp src Oral Heart Rate 80 Heart Rate from SpO2 81 bpm Heart Rate Source Monitor Resp 16 BP 107/68 Patient Position Lying SpO2 97 % Musculoskeletal System: ambulates with 4 wheel walker and standby assist (See also: MSE: Behavior) GEN No acute distress HEAD Normocephalic and Atraumatic EYES ENT NECK CV PULM ABD EXTR NEURO SKIN Mental Status Exam: ?? Appearance: age appropriate and well groomed ?? Behavior: cooperative with the interview and intermittent eye contact ?? Speech: Spoke in short sentances with loud volume (hard of hearing and without hearing aid) and normal rate ?? Language: fluent in bangladeshi ?? Mood: okay ?? Affect: constricted and mood-congruent ?? Thought Process: linear, logical and concrete ?? Associations: intact ?? Thought Content: denied homicidal ideation, denied suicidal ideation and no paranoid delusions ?? Perception: denied auditory hallucinations denied visual hallucinations not observed responding to internal stimuli ?? Orientation: person, place, time and date ?? Attention/Concentration: able to sustain focus and able to resist distraction ?? Cognition: grossly intact by interview ?? Memory: recent and remote memory grossly intact ?? Fund of Knowledge: appropriate for age and level of functioning ?? Insight: poor ?? Judgment: poor Labs: Psychiatry Labs: Preg: No results found for: HCGQUAL, HCGQUANT Heme: Lab Results Component Value Date WBC 10.1 (H) 12/19/2021 HGB 14.1 12/19/2021 HCT 41.5 12/19/2021 PLATELET 308 12/19/2021 MCV 89.8 12/19/2021 NEUTROABS 7.17 (H) 12/19/2021 No results found for: HA1C, SEDRATE Chem: Lab Results Component Value Date NA 140 12/19/2021 K 3.8 12/19/2021 CL 107 12/19/2021 CO2 22 12/19/2021 BUN 12 12/19/2021 GLUCOSE 106 12/19/2021 Lab Results Component Value Date CALCIUM 9.1 12/19/2021 MAGNESIUM 0.71 12/16/2021 PHOS 2.4 (L) 12/18/2021 LFTs: No results found for: ALT, AST, GGT, ALKPHOS, BILITOT, AMMONIA Coags: No results found for: PTT, PT, INR Thyroid: No results found for: TSH, Q5UIHVX, TT4 Lipids and HgbA1C: No results found for: CHLPL, HDL, CHOLHDL, LDLCHOL, LDLDIRECT, TRIG No results found for: HA1C Vit Lvls: No results found for: [id number], SFOLATE UA: No results found for: GLUCOSEU, KETONESUA, PROTEINUADIP, BLOODUADIP, LEUKOESTERUA, NITRATEUA, WBCUA (May not represent most recent UA results. See eD-H labs for more details.) Tox: No results found for: ETHANOL, ACTMNPHEN, SALICYLATE, LEAD No results found for: UDAUSCREEN Rx Lvls: No results found for: LITHIUM, CARBAMAZEPIN, VALPROATE, LAMOTRIGINE, CLOZAPINE Assessment: (including Suicide Risk Assessment) Sebas Shepherd is a 71 y.o. Male with hx of BPAD 1, likely dementia, and recent episode of catatonia per who presented to valuation of his ankle pain in addition to concerns of two month presentation of altered MS and functioning. Sebas appears to show significant improvement in his catatonic symptoms as comared to admission. Hetracks with the examiner, is interactive and is able to converse in short sentences. His 3 months ofdeteriorating condition, including amotivation, fatigue, and per , worsening depressive symptoms, is indicative of underlying mood/depressive symptoms and bizarre behavior indicative of a depressive BPAD episode. Team will consult with outpatient psychiatrist Dr. Brooks to determine selection of mood stabilizer, further elaborate psychiatric medication history. For now we will continue previous meds and uptitrate zyprexa beginning Wednesday to 7.5 mg. Current Suicide Assessment: Elevated relative to patient's baseline given current worsening of mental health condition. Compared to the general inpatient psychiatric population patient's risk is increased due to gender, age, and history of chronic mental health conditions. Risk mitigated by inpatient h ospitalization, q 15 min nursing checks, and medication management. Diagnosis: <principal problem not specified> Plan: ?? Admit patient to Psychiatry Care Unit ?? Activity: Restrict to Unit (RTU) #Catatonia #Acute delirium, improving -Continue PO lorazepam 1 mg PO TID -Lorazipam 1 mg prn daily for anxiety -Continue search for potential medical inciting factor for presentation, although as of now, no clear culprits identified ?? #Acute mental status change (likely in conjunction with dementia though no formal dx) ? Consider obtaining MRI and consulting neurology ?? # BPAD ?? Buproprion 100mg BID ?? Mirtazapine 45mg qhs ?? Olanzapine 5mg po QHS, increase to 7.5 mg 12/21 ?? F/U with outpatient provider to determine why patient not on mood stabilizer (generally 2nd gen antipsychotics alright with catatonia but 1st gen - ex: haldol - should be avoided) # At-home meds -ASA 81mg QD -Folic Acid 1mg QD -Magnesium 400mg -Melatonin 3mg qhs -Polyethylene glycol 17 g QD -Sennosides-Docusate 2 caps BID -Tamsulosin 0.4 mg QD -Thiamine 100mg QD PRNs -Tylenol 650 mg q6h for pain -albuterol neb q6h -carboxymethylcellulose eye drops both eyes TID -Miralax daily orn -Pericolace daily prn ?? # Suicide Risk Mitigation Q15 minute nurse checks Low ligature environment Medication management Therapeutic milieu environment Preventative/Prophylaxis: ?? Pneumovax and Influenza immunizations to be given as needed. ?? DVT prophylaxis not indicated: 40 mg subq lovenox nightly ?? If currently a smoker: advised about smoking cessation, will provide cessation material and support. Disposition: Estimated length of time needed for hospital stay is 5 days. Proposed post-discharge care will likely include re-establishing follow-up care with existing providers. Team will contact outpatient prescriber and therapist for collateral information and continuity of care. Discussed Advanced Directives and Code Status. The patient wishes to be Full Code. I certify that inpatient psychiatric hospital admission is medically necessary and the patient requires inpatient care for psychiatric treatment for safety, stabilization, and any other therapeutic intervention that could conceivably improve the patient???s condition (including medication management, group psychotherapy, establishing adequate outpatient care) and/or diagnostic study. Signed By: Tayo Jane MD 12/19/2021 Associated attestation - Eduardo Agruello DO - 12/20/2021 11:49 AM EDT INPATIENT PSYCHIATRY TEACHING PHYSICIAN INVOLVEMENT I saw and evaluated the patient and discussed the case with the resident within 24 hours. See their note dated 12/19/2021 for details.. I reviewed the patient's history during the visit and I agree with the details as written. My exam confirms the resident's findings. The assessment and plan were formulated in discussion with me and I agree with them as documented. I certify that the patient requires inpatient care for psychiatric treatment for safety, stabilization, and any other therapeutic intervention that could conceivably improve the patient's condition, including medication management, group psychotherapy, establishing adequate outpatient care, and/or diagnostic study. documented in this encounter Miscellaneous Notes Plan of Care - Layne Barboza RN - 12/24/2021 2:16 PM EDT Psychiatric Nursing Discharge Note Patient Completed Relapse Prevention Plan: Did not complete. Patient aware of follow-up appointments: MD instructed. Patient evidences understanding of medication use and regime: instructed Patient belongings returned: yes Patient was given opportunity to place crisis number in their personal cellphone: yes Patient left unit with: picked him up at [facility]. At what time? 1345 Plan of Care - Layne Barboza RN - 12/24/2021 12:37 PM EDT OUTCOME EVALUATION NOTE: ?? OUTCOME SUMMARY: ?? Pt reports he slept well. He denies depression and anxiety, denies SI/HI and AVH. He agrees to let staff know if unable to maintain safety in the unit. Flat affect, good eye contact, easy to engage, OOR for meals, noted to be reading newspaper in the milieu, attended goals group, took a shower. ?? PLAN MOVING FORWARD: ?? Medication as ordered, safety precaution, monitor mood and behavior, discharge today. ?? INDIVIDUALIZED FALL PREVENTION INTERVENTIONS: ?? Patient-specific fall risk factors per assessment: [current deficits]: high ?? Assistance [level of assistance required for transfers and ambulation]: Indp, steady on his feet, utilized walker with minimum assist. ?? Supervision [direct monitoring required during toileting and ADLs]: ETG ?? Surveillance [continuous indirect monitoring]: Q 15min checks ?? Patient-specific fall prevention interventions for sensory deficits provided, if applicable: [X] No ? CARE PLAN GOAL OUTCOME EVALUATION: [place] Suicide Severity Rating Scale: Initial Risk: Daily Risk: Low Risk (12/23/21 2100) The following nursing interventions and strategies were implemented to mitigate suicide risk: Worked with patient to develop a safety plan Identify protective barriers Prompted deep breathing / relaxation techniques Distract with activities Groups for skill building Reviewed Values with patient Assist patient in developing a safe discharge plan Therapeutic communications/listening Positive reinforcement Ongoing safety measures include: Ligature resistant environment of care provided Every 15 minutes safety checks Twice daily environment of care safety sweeps and individual room checks Silverware counted Door to room remains open Plan of Care - Jen Moreno RN - 12/23/2021 11:28 PM EDT OUTCOME EVALUATION NOTE: OUTCOME SUMMARY:Patient was isolative to his room. He is CADDO. ? Of this the cause of isolation or being tired or depressed. He has a flat affect. He denies depression or anxiety. He denies AVH, SI or HI. He does not appear to be responding to internal stimuli. He was not compliant with using his walker and nurse was standby assist. He was asked if he needed to use the toilet, he stated no, less than 2 minutes later he was OOB using the toilet. He has been reminded 3 times to use his call grewal. Door to room is open to assist patient with standby. He stated he had a bm today. He is anticipated to discharge to the care of his tomorrow. Gait is steady.He denies AVH, delusions or paranoia. [place] Suicide Severity Rating Scale: Initial Risk: Daily Risk: Low Risk (12/23/21 2100) The following nursing interventions and strategies were implemented to mitigate suicide risk: Full room search conducted Medication as needed Worked with patient to develop a safety plan Identify protective barriers Scheduled check in with nursing Therapeutic communications/listening Positive reinforcement Ongoing safety measures include: Ligature resistant environment of care provided Every 15 minutes safety checks Twice daily environment of care safety sweeps and individual room checks Silverware counted Door to room remains open PLAN MOVING FORWARD:Foster a positive therapeutic relationship, active listening, safety and stability, medication education and monitoring INDIVIDUALIZED FALL PREVENTION INTERVENTIONS:high, fall risk education done, patient needs reminders Patient-specific fall risk factors per assessment: [current deficits]: medications, impulsivity, noncompliance with appliance and tap grewal Assistance [level of assistance required for transfers and ambulation]: encourage use of walker, standby assist Supervision [direct monitoring required during toileting and ADLs]: standby assist, set up Surveillance [continuous indirect monitoring]: q 15 minute continuous rounding CPG GOAL OUTCOME EVALUATION: discharge tomorrow am Plan of Care - Layne Barboza RN - 12/23/2021 12:26 PM EDT OUTCOME EVALUATION NOTE: OUTCOME SUMMARY: Pt reports he slept well. He denies depression and anxiety, denies SI/HI and AVH. He agrees to let staff know if unable to maintain safety in the unit. Flat affect, good eye contact, easy to engage, isolative but came OOR for meals, noted to be reading a book in the milieu, attended goals group. visited this evening. PLAN MOVING FORWARD: Medication as ordered, safety precaution, monitor mood and behavior. INDIVIDUALIZED FALL PREVENTION INTERVENTIONS: Patient-specific fall risk factors per assessment: [current deficits]: high Assistance [level of assistance required for transfers and ambulation]: Indp, steady on his feet, utilized walker with minimum assist. Supervision [direct monitoring required during toileting and ADLs]: ETG Surveillance [continuous indirect monitoring]: Q 15min checks Patient-specific fall prevention interventions for sensory deficits provided, if applicable: [X] No CARE PLAN GOAL OUTCOME EVALUATION: [place] Suicide Severity Rating Scale: Initial Risk: Daily Risk: Low Risk (12/23/21 1000) The following nursing interventions and strategies were implemented to mitigate suicide risk: Worked with patient to develop a safety plan Identify protective barriers Prompted deep breathing / relaxation techniques Distract with activities Groups for skill building Reviewed Values with patient Assist patient in developing a safe discharge plan Therapeutic communications/listening Positive reinforcement Ongoing safety measures include: Ligature resistant environment of care provided Every 15 minutes safety checks Twice daily environment of care safety sweeps and individual room checks Silverware counted Door to room remains open Initial Assessments - Maria Eugenia Rowell RN - 12/22/2021 1:05 PM EDT Office of Care Management Initial Assessment MARIA EUGENIA ROWELL RN reviewed record and discussed patient with Care Team. Source of Information: Team, bedside nurse, medical record, and Patient Introduced self/reviewed role; services accepted. Reason for Hospitalization: Medication titration Covid Vaccination Status: 1st, 2nd & booster Past medical History: History reviewed. No pertinent past medical history. Hospitalizations Within the Past 30 Days: previous discharge plan unsuccessful Current Decision-Making Capacity: Self Decision Maker Name: Sisi Shepherd (Spouse) Decision Maker Contact Information: [phone] (M) [address] [facility] [address] Proxy Activated: No If AD's have not been completed the following surrogate would be surrogate decision maker per [place] surrogate decision making law. (Only good for 180 days) Any patient receiving care in [place] must abide by [place] law. The hierarchy for surrogate decision making is: (a) Patient???s spouse, or civil union partner or common law spouse unless there is a divorce proceeding, separation agreement, or restraining order limiting that person???s relationship with the patient. (b) Any adult son or daughter of the patient. (c) Either parent of the patient. (d) Any adult brother or sister of the patient. (e) Any adult grandchild of the patient. (f) Any grandparent of the patient. (g) Any adult aunt, uncle, niece, or nephew of the patient. (h) A close friend of the patient. (i) The agent with financial power of commercial attorney or a conservator appointed in accordance with RSA 464-A. (j) The guardian of the patient???s estate. Advance Care Planning: Attempt Cardiopulmonary Resuscitation - Inpatient Received -Advanced Directive: Yes, on file Who is your DPOA-HC?: Spouse Current Coping/Education/Information Needs: Education regarding effective coping skills, medication and treatment options, relapse prevention and community supports Current Functional Ability: Assistive Equipment Functional Status Prior to Admission: Assistive Equipment Prior ADLs & IADLs: Independent with all ADLs & IADLs Cooking / Eating: Family / Friends Provide Meals Cleaning: Family / Friends do Cleaning Laundry: Has Assistance Driving: Family / Friends Provide Rides Home Environment: Others in the home: child(jimena), adult, spouse, grandchild(jimena). Current Living Arrangements: home/apartment/condo. Accessibility Concerns:Nine. Resource / Environmental Concerns: Resource/Environmental Concerns: none Current DME: walker - rolling Home Address listed as: [address] [facility] [address] Social & Family Supports: All names listed below confirmed with patient as current and correct Extended Emergency Contact Information Primary Emergency Contact: SISI SHEPHERD Mobile Relation: Spouse Secondary Emergency Contact: MESHA VASQUEZ Mobile Relation: Child Current Care Provided by: self, spouse/significant other Provides Primary Care For: no one, unable/limited ability to care for self Caregiver if needed: child(jimena), adult, spouse Quality of Family relationships: supportive Community Resources being provided currently: outpatient psychiatric care Behavioral Health History: per H+P: Prior diagnoses: -BPAD1 Past hospitalization and location: -hospitalized for hussain -several hospitalizations for mental health reasons over the past 26 years including at [facility] [place], these have ranged from a 1 to 8-month hos pitalization. last psych hospitalization years ago. -[facility] (Geriatric Mental Health Unit) at [facility] in [place], [place] that went through mid November. Suicide attempt details: -denies Substance Use/Abuse listed: Social History Tobacco Use Smoking Status Never Smoker Smokeless Tobacco Never Used 0 No problems reported 1-2 Low level 3-5 Moderate level 6-8 Substantial level 9- 10 Severe level 0 to 7 points: Low risk 8 to 15 points: Medium risk 16 to 19 points: High risk 20 to 40 points: Addiction likely Other Pertinent/Service Specific Information: Health/Prescription Coverage: Primary Insurance: MANAGED MEDICARE GENERIC Payor: MANAGED MEDICARE GENERIC / Plan: MEDICARE MANAGED GENERIC / Product Type: *No Product type* / Secondary Insurance: N/A Secondary Insurance? (Only Medicare A&B): No ; Why not?: Pending [place] [facility] ([place]) Prescription Coverage: Yes Preferred Pharmacy: [id number] - [facility], [place] - [address] AT [address] [facility] [address] [facility] [id number] [place] Status: Patient is a : No Primary Care Provider: Jose Eduardo Barboza MD [phone] Patient/Caregiver Goals of Treatment: seeking help for anxiety, hoping to discharge home soon Potential Needs for Transition of Care: mental health services Agency Referrals: Patient is connected with outpatient mental health care through [facility]. Will coordinate care with current providers. Transportation: no concerns Transportation Anticipated: family or friend will provide Concerns to be Addressed: mental health Assessment: Patient is admitted to [facility] Psychiatry service for catatonia Plan: medication management, therapeutic groups for skill building and support, coordination of care A member of the Care Management team will continue to monitor progress, follow for continuity of care and assist with transition of care planning. Plan of Care - Maria Eugenia Rowell RN - 12/22/2021 10:18 AM EDT MULTIDISCIPLINARY TREATMENT PLAN Todays Date: 12/22/2021 Patient: Sebas Shepherd Jr. Admit Date: 12/19/2021 4:18 PM CODE STATUS:Attempt Cardiopulmonary Resuscitation - Inpatient Initial date of care plan. __12/22/21_ Working Diagnosis: Catatonia [F06.1] PATIENT'S REASON FOR HOSPITALIZATION Worsening mood symptoms with decreased self care STRENGTHS STRESSORS TARGET SYMPTOMS 1. Open to engaging in care No identified precipitating event Depressive symptoms 2. Connected to outpt. Team Anxiety 3. GOALS 1 Stabilize target symptoms and improve understanding of illness 2 Work with telehealth case manager/social professionals to create and implement aftercare plan 3 Medication optimization 4 Groups for education, skill building and support 5 Complete Wellness and recovery plan prior to discharge PHYSICIAN INTERVENTIONS ACTIVITY INTERVENTIONS 1. Continued psychiatric evaluation 1. Therapeutic groups & activities 2. Med management/Brief therapy 2. Patient and family education 3. Diagnostic/Medical testing/Labs 3. NURSING INTERVENTIONS CM & SW INTERVENTIONS 1. 15 minute safety checks 1. Facilitate communication with family 2. Nursing care plan 2. Facilitate communication with providers 3. 3. Assist with discharge planning The multidisciplinary team reviewed falls prevention plan with me. I have worked with my treatment team and agree with the plan above. PATIENT SIGNATURE DATE: Sebas Padgett Joao Mazariegos PRINT NAME: SIGNATURE: DATE: RESIDENT PHYSICIAN 12/22/21 ATTENDING PHYSICIAN Tayo Lindsay MD 12/22/21 NURSING 12/22/21 NURSE FIELD REPRESENTATIVE Maria Eugenia Rowell RN 12/22/21 THERAPIST 12/22/21 FERMENTATION OPERATOR CHRISTEN Bray 12/22/21 Initial Assessments - Chato Fajardo MSW - 12/22/2021 9:53 AM EDT Office of Care Management Initial Assessment CHRISTEN Maldonado reviewed record and discussed patient with Care Team. Source of Information: Team, bedside nurse, medical record, and Patient's (HDPOA). Patient too fatigued to engage Introduced self/reviewed role; services accepted. Reason for Hospitalization: Medication titration presented for e valuation of his ankle pain in addition to concerns??of two month presentation of altered MS and functioning. Covid Vaccination Status: 1st, 2nd & booster Modern for all Last COVID test: Past medical History: History reviewed. No pertinent past medical history. Patient Active Problem List Diagnosis Code ??? Altered mental status R41.82 ??? Bipolar I disorder, most recent episode (or current) manic, moderate F31.12 ??? Obtundation R40.1 ??? Catatonia F06.1 Hospitalizations Within the Past 30 Days: current reason for admission unrelated to previous admission, other (see comments) (Was at [facility] at [facility] in [place] during November) Current Decision-Making Capacity: DPOA-HC Decision Maker Name: Sisi Shepherd (Spouse) Decision Maker Contact Information: [phone] (M) [address] [place] [place] [place] [address] Proxy Activated: No Advance Care Planning: Attempt Cardiopulmonary Resuscitation - Inpatient Received -Advanced Directive: Yes, on file Who is your DPOA-HC?: Spouse (Sisi Shepherd (Spouse) [phone] (M) Primary; Mesha Vasquez (Child) [phone] (M)) Current Coping/Education/Information Needs: Has been given clinical updates by Care Teams and has been provided the opportunity to have questions/concerns addressed. Current Functional Ability: Assistive Equipment, Assistive Person (spouse (pt lives with his , in their daughters home).) Functional Status Prior to Admission: Assistive Equipment and Assistive Person Prior ADLs & IADLs: Assistance Needed with ADLs & IADLs Cooking / Eating: Family / Friends Provide Meals Cleaning: Family / Friends do Cleaning Laundry: Has Assistance Driving: Family / Friends Provide Rides Medication Management: Dependent with Medication Management Bathing: Assists with Bathing Dressing: Assists with Dressing Home Environment: Others in the home: spouse. Current Living Arrangements: home/apartment/condo. Accessibility Concerns:Nine. Resource / Environmental Concerns: Resource/Environmental Concerns: financial Financial Concerns: other (see comments) (residential care following DC from unit) Current DME: walker - rolling (gait appearing steady with walker, stand by assist) Home Address confirmed as: [address] [place] [address] Social & Family Supports: , daughter, son in [place] Extended Emergency Contact Information Primary Emergency Contact: SISI SHEPHERD Mobile Relation: Spouse Secondary Emergency Contact: MESHA VASQUEZ Mobile Relation: Child Family Constellation, Pertinent History: Sebas is one of 89 children bron to parents who remained until . He has one brother who is . He lives at home with his ,of 50 years, and daughter??in [facility]??(daughter's home) but they are having a hard time caring for him at home??in his present state. Traditionally spends posey in [facility] with . Current Care Provided by: spouse/significant other Provides Primary Care For: no one, unable/limited ability to care for self Caregiver if needed: child(jimena), adult, spouse Quality of Family relationships: Community Resources being provided currently: homecare agency Behavioral Health History: Prior diagnoses: -BPAD1 Past hospitalization and location: ??-hospitalized for hussain -several hospitalizations for mental health reasons over the past 26 years including at [facility] [place], these have ranged from a 1 to 8-month hospitalization.?last psych hospitalization years ago. -[facility] (Ger[facility] Unit)??at??[facility] in [place], [place] that went throughnovember.? Suicide attempt details: -denies Mental Health Services : Current Mental Health Prescriber: Dr. Brooks Current Therapist: Family mental health concerns: patients mother had a psych admission at but details are unclear Chemical abuse or other abuse in family: Substance Use/Abuse confirmed: Denies Denies Social History Tobacco Use Smoking Status Never Smoker Smokeless Tobacco Never Used 0 No problems reported 1-2 Low level 3-5 Moderate level 6-8 Substantial level 9- 10 Severe level 0 to 7 points: Low risk 8 to 15 points: Medium risk 16 to 19 points: High risk 20 to 40 points: Addiction likely Other Pertinent/Service Specific Information: Social Media : very rare (channel ands total time per day) Texting : He got a cell phone and it was the worst thing for him TV : He used to watch a lot of TV but not anymore Reading : none-but he used to read a couple hours/day Patient's understanding/adjustment to illness : Coping Skills- Strengths- Needs- Stressors: () Limited Support () Obtaining Medication () Financial Concerns () Marital Conflict () Family Conflict () Illness of Family Member () Insurance: [place] Choices For Care application completed with required accompanying documents and pending approval by state () Substance Abuse () School Issues () Extensive Home Care Need () Pain () Employment Issues () Transportation () Inadequate Coping Skills () Loss/ () Frequent Hospitalizations () Sexuality () Change in Home Environment () Socialization Issues () Concerns about Diagnosis () Mental health Issues ()Trauma/ANGELES () Legal Health/Prescription Coverage: Primary Insurance: MANAGED MEDICARE GENERIC Payor: MANAGED MEDICARE GENERIC / Plan: MEDICARE MANAGED GENERIC / Product Type: *No Product type* / Secondary Insurance: N/A Secondary Insurance? (Only Medicare A&B): No ; Why not?: [place]ending [place] [facility] ([place]) Prescription Coverage: Yes Preferred Pharmacy: [id number] - [facility], [place] - [address] [facility] AT [address] [facility] [address] [facility] [id number] Status: Patient is a : No Primary Care Provider: Jose Eduardo Barboza MD [phone] Patient/Caregiver Goals of Treatment: to get up and moving; he was quite active until all this started Potential Needs for Transition of Care: telehealth case manager, community agency, mental health services, rehabilitation services Agency Referrals: Evolving Transportation: no concerns Transportation Anticipated: family or friend will provide Concerns to be Addressed: adjustment to diagnosis/illness, compliance issue, coping/stress, decision-making, LTC Medicaid, medication, mental health, lack of sufficient support system Assessment: Patient is admitted to Psychiatry service for safety and stabilization (H&P Lucinda PAULINO 12/19/21) 71 y.o.??Male??with hx of BPAD 1,?likely dementia,??and recent episode of catatonia per ??whopresented to valuation of his ankle pain in addition to concerns??of two month presentation of altered MS and functioning. ?? Sebas appears to show significant improvement in his catatonic symptoms as comared to admission. Hetracks with the examiner, is interactive and is able to converse in short sentences. His 3 months ofdeteriorating condition, including amotivation, fatigue, and per , worsening depressive symptoms, is indicative of underlying mood/depressive symptoms and bizarre behavior indicative of a depressive BPAD episode. Team will consult with outpatient psychiatrist Dr. Brooks to determine selection of mood stabilizer, further elaborate psychiatric medication history. For now we will continue previous meds and uptitrate zyprexa beginning Wednesday to 7.5 mg. ?? Current Suicide Assessment: Elevated relative to patient's baseline given current worsening of mental health condition. Compared to the general inpatient psychiatric population patient's risk is increased due to gender, age, and history of chronic mental health conditions. Risk mitigated by inpatient h ospitalization, q 15 min nursing checks, and medication management. ? Diagnosis: <principal problem not specified> Following for DISPLAY CARD WRITER support, including for coping through illness process and resource needs, through disposition. Plan: Likely home with supports, outpatient referrals, and follow up. Patient with no apparent RNCM/SW needs at this time. No housing, transportation, insurance, resources concerns identified at this time. Supports in place to achieve a safe post-hospital transition. No identified barriers to accessing necessary care and/or follow-up after discharge. A member of the Care Management team will continue to monitor progress, follow for continuity of care and assist with transition of care planning. CHRISTEN Maldonado, Chicken CutterChainer of Care Management Pager: [phone] Work Plan of Care - Corrine Lyn RN - 12/21/2021 11:11 PM EDT OUTCOME EVALUATION NOTE: OUTCOME SUMMARY: Patient resting in bed at the beginning of the shift. Easily roused, responsive and co-operative.Easily engaged but conversation minimum, States mood is good. Denies depression, anxiety, SI, HI, AVH and pain. Communication also affected by hearing difficulty OOB to bathroom and gait appearing steady with walker, stand by assit Compliant with medications PLAN MOVING FORWARD: Monitor mood, behavior safety on the unit Encourage increased activity, participation in activities as able Fall precautions, bed alarm [place] Suicide Severity Rating Scale: Initial Risk: Daily Risk: Low Risk (12/21/21 2200) The following nursing interventions and strategies were implemented to mitigate suicide risk: Medication as needed Distract with activities Groups for skill building Therapeutic communications/listening Positive reinforcement Ongoing safety measures include: Ligature resistant environment of care provided Every 15 minutes safety checks Twice daily environment of care safety sweeps and individual room checks Silverware counted Door to room remains open INDIVIDUALIZED FALL PREVENTION INTERVENTIONS: Patient-specific fall risk factors per assessment: [current deficits]: secondary diagnosis, medication adjustments, hx of falls, high fall risk Assistance [level of assistance required for transfers and ambulation]: stand by assist, walker Supervision [direct monitoring required during toileting and ADLs]: stand by assist Surveillance [continuous indirect monitoring]: 15 minute checks, etg, purposeful rounding Patient-specific fall prevention interventions for sensory deficits provided, if applicable: CADDO CPG GOAL OUTCOME EVALUATION: Plan of Care - Lamar Hamilton RN - 12/20/2021 10:43 PM EDT OUTCOME EVALUATION NOTE: OUTCOME SUMMARY: Sebas in bed all shift with eyes closed. Responds when spoken to but makes no eye contact. Took scheduled meds when offered, without sitting up. Did not answer any assessment questions but rolled ontoside to rest. Awakened at one point and wanted to drink water. ORTHOPEDIC RADIOLOGIC TECHNOLOGIST offered to walk him to bathroom, but he said he didn't need to go. Able to make needs known. Safety on unit maintained. PLAN MOVING FORWARD: Medications as ordered. Monitor behavior and mood. Safety precautions. Discharge planning. Therapeutic communication. [place] Suicide Severity Rating Scale: Initial Risk: Daily Risk: Low Risk (12/20/21 2200) The following nursing interventions and strategies were implemented to mitigate suicide risk: Full room search conducted Medication as needed Scheduled check in with nursing Therapeutic communications/listening Ongoing safety measures include: Ligature resistant environment of care provided Every 15 minutes safety checks Twice daily environment of care safety sweeps and individual room checks Silverware counted Door to room remains open INDIVIDUALIZED FALL PREVENTION INTERVENTIONS: Patient-specific fall risk factors per assessment: [current deficits]: Weakness, previous falls, walker assist, incontinence Assistance [level of assistance required for transfers and ambulation]: SBA with walker Supervision [direct monitoring required during toileting and ADLs]: SBA, ETG Surveillance [continuous indirect monitoring]: Checks every 15 minutes. Patient-specific fall prevention interventions for sensory deficits provided, if applicable: [X] Yes Plan of Care - Jessica Gutierrez RN - 12/20/2021 9:45 AM EDT OUTCOME EVALUATION NOTE: OUTCOME SUMMARY: Sebas reported sleeping okay last night and describes his mood as alright. He is calm and cooperative with a flat affect and is slightly difficult to engage in conversation. He denies having depression and anxiety today. He also denies having physical pain, SI, HI, and AVH this morning. Sebas states that he feels safe on the unit and will alert staff of any changes in mood or if unable to maintain safety. Sebas did not set a goal for today. Patient observed eating breakfast in the common area. [place] Suicide Severity Rating Scale: Initial Risk: Daily Risk: Low Risk (12/20/21 0909) The following nursing interventions and strategies were implemented to mitigate suicide risk: Full room search conducted Medication as needed Worked with patient to develop a safety plan Identify protective barriers Prompted deep breathing / relaxation techniques Distract with activities Groups for skill building Reviewed Values with patient Scheduled check in with nursing Patient to work on Relapse Prevention Plan Assist patient in developing a safe discharge plan Therapeutic communications/listening Positive reinforcement Ongoing safety measures include: Ligature resistant environment of care provided Every 15 minutes safety checks Twice daily environment of care safety sweeps and individual room checks Silverware counted Door to room remains open PLAN MOVING FORWARD: Monitor mood/behavior. Medications as ordered. Monitor effects of medications. Group therapy. Coping skill building. Discharge planning. INDIVIDUALIZED FALL PREVENTION INTERVENTIONS: Patient-specific fall risk factors per assessment: [current deficits]: High risk. Assistance [level of assistance required for transfers and ambulation]: SBA Supervision [direct monitoring required during toileting and ADLs]: SBA, 1 assist. Surveillance [continuous indirect monitoring]: Q15 minute safety checks, RTU Patient-specific fall prevention interventions for sensory deficits provided, if applicable: [X] N/A CPG GOAL OUTCOME EVALUATION: Patient agrees to plan of care. Plan of Care - Corrine Lyn RN - 12/19/2021 9:48 PM EDT OUTCOME EVALUATION NOTE: OUTCOME SUMMARY: Patient in bed at the beginning of the shift. Easily aroused to voice. Verbalized understanding of hs medications being offered and compliant with them. States he feels great. States at 2030 that he does not need to get up to bathroom. When asked questioned about mood patient becomes non responsive, closes eyes. Slept soundly until 5:30am. At this time patient agreed to get up the the bathroom and voided in toilet. Needed bed raised in order to standup. Ambulated with walker and one assist. Returned to bed and sleeping. PLAN MOVING FORWARD: Monitor mood, behavior, thought process on the unit Encourage PO fluids and nutrition One person assist to ambulate with walker Fall precautions, bed alarm [place] Suicide Severity Rating Scale: Initial Risk: Daily Risk: Low Risk (12/19/212126) The following nursing interventions and strategies were implemented to mitigate suicide risk: Medication as needed Distract with activities Scheduled check in with nursing Therapeutic communications/listening Positive reinforcement Ongoing safety measures include: Ligature resistant environment of care provided Every 15 minutes safety checks Twice daily environment of care safety sweeps and individual room checks Silverware counted Door to room remains open INDIVIDUALIZED FALL PREVENTION INTERVENTIONS: Patient-specific fall risk factors per assessment: [current deficits]: secondary diagnosis, medication adjustments, hx of falls Assistance [level of assistance required for transfers and ambulation]: one person assist with rolling walker Supervision [direct monitoring required during toileting and ADLs]: one person assist with rolling walker Surveillance [continuous indirect monitoring]: 15 minute checks, purposeful rounding Patient-specific fall prevention interventions for sensory deficits provided, if applicable: [X] YesPatient is CADDO and has visual deficits. Has been refusing hearing aide and glasses. Keep communicatons simple allowing patient to indicate understanding. CPG GOAL OUTCOME EVALUATION: documented in this encounter Plan of Treatment Not on filedocumented as of this encounter Visit Diagnoses Diagnosis Bipolar I disorder, most recent episode (or current) manic, moderate - Primary documented in this encounter Admitting Diagnoses Diagnosis [place] Other symptoms involving nervous and mus culoskeletal systems documented in this encounter Administered Medications Inactive Administered Medications - up to 3 most recent administrations Medication Order MAR Action Action Date Dose Rate Site acetaminophen (Tylenol) tablet 650 mg 650 mg, Oral, EVERY 6 HOURS PRN, Startin g on Wed12/19/21 at 1631, Until Wed12/24/21 at 1632, Pain, Maximum dose of acetaminophen is 4000 m g from all sources in 24 hours. When ordered for pain, acetaminop hen should be given even when other ordered pain medications are indicated. , Routine albuteroL (Proventil) nebulizer solution 2.5 mg 2.5 mg, Nebulization, EVERY 6 HOURS PRN, Starting on Wed12/19/21 at 1632, Until Wed12/24/21 at 1632, Wheezing, Shortness of Breath, Routin e aspirin chewable tablet 81 mg Given 12/24/2021 8:58 AM EDT 81 mg 81 mg, Oral, DAILY, First dose on Wed12/19/21 at 1730, Until Discontinued, Routine Given 12/23/2021 9:32 AM EDT 81 mg Given 12/22/2021 9:40 AM EDT 81 mg buPROPion SR (Wellbutrin SR) tablet 100 mg Given 12/24/2021 8:58 AM EDT 100 mg 100 mg, Oral, 2 TIMES DAILY, First dose on Wed12/19/21 at 2100, Until Discontinued, DO NOT CRUSH OR OPEN, Routine Given 12/23/2021 8:28 PM EDT 100 mg Given 12/23/2021 9:32 AM EDT 100 mg carboxymethylcellulose (Refresh Plus) 0. 5 % ophthalmic drops 2 drop 2 drop, Both Eyes, 3 TIMES DAILY PRN, St arting on Wed12/19/21 at 1632, Until Wed12/24/21 at 1632, Dry Eyes, Routine enoxaparin (Lovenox) (40 mg/0.4 mL) Given 12/21/2021 8:53 PM EDT 40 mg subcutaneous injection 40 mg 40 mg, Subcutaneous, NIGHTLY, First dose on Wed12/19/21 at 2100, Until Discontinued, Routine Given 12/20/2021 8:54 PM EDT 40 mg Given 12/19/2021 8:25 PM EDT 40 mg folic acid (Folvite) tablet 1,000 mcg Given 12/24/2021 8:58 AM EDT 1,000 mcg 1,000 mcg, Oral, DAILY, First dose on Wed12/19/21 at 1730, Until Discontinued, Routine Given 12/23/2021 9:33 AM EDT 1,000 mcg Given 12/22/2021 9:40 AM EDT 1,000 mcg LORazepam (Ativan) tablet 1 mg Given 12/24/2021 8:58 AM EDT 1 mg 1 mg, Oral, 3 TIMES DAILY, First dose on Wed12/19/21 at 1730, Until Discontinued, Routine Given 12/23/2021 8:29 PM EDT 1 mg Given 12/23/2021 3:14 PM EDT 1 mg LORazepam (Ativan) tablet 1 mg 1 mg, Oral, DAILY PRN, Starting on Wed at 1622, Until Wed12/24/21 at 1632, Anxiety, Routine melatonin tablet 3 mg Given 12/23/2021 8:27 PM EDT 3 mg 3 mg, Oral, NIGHTLY, First dose on Wed12/19/21 at 2100, Until Discontinued, Routine Given 12/22/2021 8:58 PM EDT 3 mg Given 12/21/2021 8:52 PM EDT 3 mg mirtazapine (Remeron) tablet 45 mg Given 12/23/2021 8:28 PM EDT 45 mg 45 mg, Oral, NIGHTLY, First dose on Wed12/19/21 at 2100, Until Discontinued, Routine Given 12/22/2021 8:58 PM EDT 45 mg Given 12/21/2021 8:52 PM EDT 45 mg OLANZapine (ZyPREXA) tablet 5 mg Given 12/20/2021 8:53 PM EDT 5 mg 5 mg, Oral, NIGHTLY, 2 doses, First dose on Wed12/19/21 at 2100, Last dose on Wed12/20/21 at 2100, Routine Given 12/19/2021 8:24 PM EDT 5 mg OLANZapine (ZyPREXA) tablet 7.5 mg Given 12/23/2021 8:27 PM EDT 7.5 mg 7.5 mg, Oral, NIGHTLY, First dose on Wed12/21/21 at 2100, Until Discontinued, Routine Given 12/22/2021 8:58 PM EDT 7.5 mg Given 12/21/2021 8:52 PM EDT 7.5 mg polyethylene glycoL (Miralax) packet 17 g 17 g, Oral, DAILY PRN, Starting on Wed at 1556, Until Wed12/24/21 at 1632, Constipation, Administer if needed per p atient's routine or if no bowel movement within 48 hours to achieve: 1) One bowel movement at least every 48 hours, AND 2) Without straining. If multiple bowel medications order ed, consider polyethylene glycol(MIRALAX) first., Routine polyethylene glycoL (Miralax) packet 17 g Given 12/24/2021 8:58 AM EDT 17 g 17 g, Oral, DAILY, First dose on Wed12/19/21 at 1730, Until Discontinued, Routine Given 12/23/2021 9:32 AM EDT 17 g Given 12/22/2021 9:39 AM EDT 17 g senna-docusate (Pericolace) 8.6-50 mg pe r tablet 1 tablet 1 tablet, Oral, DAILY PRN, Starting on F ri 12/19/21 at 1633, Until Wed12/24/21 at 1632, Constipation, second line, Routine tamsulosin (Flomax) capsule 0.4 mg Given 12/24/2021 8:59 AM EDT 0.4 mg 0.4 mg, Oral, DAILY, First dose on Wed12/19/21 at 1730, Until Discontinued, DO NOT CRUSH OR OPEN, Routine Given 12/23/2021 9:33 AM EDT 0.4 mg Given 12/22/2021 9:40 AM EDT 0.4 mg thiamine (Vitamin B1) tablet 100 mg Given 12/24/2021 8:58 AM EDT 100 mg 100 mg, Oral, DAILY, First dose on Wed12/19/21 at 1730, Until Discontinued, Routine Given 12/23/2021 9:33 AM EDT 100 mg Given 12/22/2021 9:40 AM EDT 100 mg documented in this encounter Active and Recently Administered Medications Times are shown in EDT. Scheduled Medication Order 12/22/2021 12/23/2021 12/24/2021 aspirin chewable tablet 81 mg 0940 (Given - Provider: Gayla Ludwig RN) 0932 (Given - Provider: Layne Barboza RN) 0858 (Given - Provider: Layne Barboza RN) 81 mg, Oral, DAILY, First dose on Wed at 1730, Until Discontinued, Routine buPROPion SR (Wellbutrin SR) tablet 100 mg 0940 (Given - Provider: Gayla Ludwig RN)2057 (Given - Provider: Rehana Pollack RN) 0932 (Given - Provider: Layne Barboza RN)2027 (Given - Provider: Jen Moreno RN) 0858 (Given - Provider: Layne Barboza RN) 100 mg, Oral, 2 TIMES DAILY, First dose on Wed12/19/21 at 2100, Until Discontinued, DO NOT CRUSH OR OPEN, Routine folic acid (Folvite) tablet 1,000 mcg 0940 (Given - Pr ovider: Gayla Ludwig RN) 0933 (Given - Provider: Layne Barboza RN) 0858 (Given - Provider: Layne Barboza RN) 1,000 mcg, Oral, DAILY, First dose on 12/19/21 at 1730, Until Discontinued, Routine LORazepam (Ativan) tablet 1 mg 0940 (Given - Provider: Gayla Ludwig RN)161 (Given - Provider: Gayla Ludwig RN - Comment: Pt sleeping)2057 (Given - Provider: Rehana Pollack RN) 0933 (Given - Provider: Layne Barboza RN)1514 (Given - Provider: Layne Barboza RN)2028 (Given - Provider: Jen Moreno RN) 0858 (Given - Provider: Monica Thao) 1 mg, Oral, 3 TIMES DAILY, First dose on Wed12/19/21 at 1730, Until Discontinued, Routine melatonin tablet 3 mg 2057 (Given - Provider: Rehana johnston RN) 2026 (Given - Provider: Jen Moreno RN) 3 mg, Oral, NIGHTLY, First dose on Wed at 2100, Until Discontinued, Routine mirtazapine (Remeron) tablet 45 mg 2057 (Given - Provider: Dayron Pollack RN) 2027 (Given - Provider: Jen Moreno RN) 45 mg, Oral, NIGHTLY, First dose on Wed12/19/21 at 2100, Until Discontinued, Routine OLANZapine (ZyPREXA) tablet 7.5 mg 2057 (Given - Provider: Dayron Pollack RN) 2026 (Given - Provider: Jen Moreno RN) 7.5 mg, Oral, NIGHTLY, First dose on Wed12/21/21 at 2100, Until Discontinued, Routine polyethylene glycoL (Miralax) packet 17 g 0939 (Given - Provider: Gayla Ludwig RN) 0932 (Given - Provider: Layne Barboza RN) 0858 (Given - Provider: Layne Barboza RN) 17 g, Oral, DAILY, First dose on 12/04 at 1730, Until Discontinued, Routine tamsulosin (Flomax) capsule 0.4 mg 0940 (Given - Provi randy: Gayla Ludwig RN) 0933 (Given - Provider: Layne Barboza RN) 0859 (Given - Provider: Layne Barboza RN) 0.4 mg, Oral, DAILY, First dose on Wed at 1730, Until Discontinued, DO NOT CRUSH OR OPEN, Routine thiamine (Vitamin B1) tablet 100 mg 0940 (Given - Prov ider: Gayla Ludwig RN) 0933 (Given - Provider: Layne Barboza RN) 0858 (Given - Provider: Layne Barboza RN) 100 mg, Oral, DAILY, First dose on Wed at 1730, Until Discontinued, Routine PRN Medication Order 12/22/2021 12/23/2021 12/24/2021 acetaminophen (Tylenol) tablet 650 mg 650 mg, Oral, EVERY 6 HOURS PRN, Startin g on Wed12/19/21 at 1631, Until Wed12/24/21 at 1632, Pain, Maximum dose of acetaminophen is 4000 mg from all sources in 24 hours. When ordered for pain, acetamino phen should be given even when other ord ered pain medications are indicated. , Routine albuteroL (Proventil) nebulizer solution 2.5 mg 2.5 mg, Nebulization, EVERY 6 HOURS PRN, Starting on Wed12/19/21 at 1632, Until Wed12/24/21 at 1632, Wheezing, Shortness of Breath, Routine carboxymethylcellulose (Refresh Plus) 0.5 % ophthalmic drops 2 d rop 2 drop, Both Eyes, 3 TIMES DAILY PRN, St arting on Wed12/19/21 at 1632, Until Wed12/24/21 at 1632, Dry Eyes, Routine LORazepam (Ativan) tablet 1 mg 1 mg, Oral, DAILY PRN, Starting on Wed at 1622, Until Wed12/24/21 at 1632, Anxiety, Routine polyethylene glycoL (Miralax) packet 17 g 17 g, Oral, DAILY PRN, Starting on Wed at 1556, Until Wed12/24/21 at 1632, Constipation, Administer if needed per patient's routine or if no bowel movement within 48 hours to achieve: 1) One bow el movement at least every 48 hours, AND 2) Without straining. If multiple bowel medications ordered, consider polyethylene glycol(MIRALAX) first., Routine senna-docusate (Pericolace) 8.6-50 mg per tablet 1 tablet 1 tablet, Oral, DAILY PRN, Starting on 12/19/21 at 1633, Until Wed12/24/21 at 1632, Constipation, second line, Routine documented in this encounter Care Teams Rotary Cutter Feeder Relationship Specialty Start Date End Date Jose Eduardo Barboza MD PCP - General Family Medicine [birth year] [address] [place] [address] documented as of this encounter
--- OUTSIDE RECORDS SUMMARY | 2022-02-05 14:37 | XMS_ITS | Encounter Summary ---
:1950 Author Organization Health system Address [address] [place] [address] Care Team Providers Name Role Phone None, Provider Primary Care Provider Unavailable Encounter Details Date Type Department Care Team Description 08/29/2010 - Hospital Encounter [facility] Imelda Zhou , 09/09/2010 Inpatient Psychiatry MD Unit [address] [place] [id number] Social History Tobacco Use Types Packs/Day Years [...] discharge: Dr. Imelda Zhou MD DISCHARGE DIAGNOSIS: Corinth I: Bipolar I disorder, mre manic, severe with psychotic features Corinth II: None Identified Corinth III: Rosacea on face and chest Corinth IV: Occupational problems and Other psychosocial or environmental problems Corinth V: GAF on admission: 11-20, on discharge: 50 Reason for Admission: Hussain History of Present Illness: (Per admission evaluation:) Mr. Sebas Shepherd is a 59-year old man with a past psychiatric history of bipolar disorder and a past psychiatric hospitalization [facility] ([facility]) in 1997 for aggressive behavior related to a manic episode who was referred for admission to [facility] from [facility] after experiencing worsening manic symptoms over the past several weeks. The patient reported that over the past several months since June (which coincides with the birthday of his mother) he had been feeling depressed.Approximately 3- weeks ago he requested his provider to reduce his Roxton dose by 1/3. However over the past [...] safe and cured since he is a mandaeism man and he has the power and [...] thathe had to be physically retained at [facility]). At the time of admission he stated [...] Hospital Course: The patient was admitted to [place] [address], the [facility] psychiatry unit, on a voluntary basisfor safety and stabilization. Admission Review of systems was unremarkable. Admission physical exam showed Rosacea on face and chest and bug bites on forearms. Admission labs were unremarkable with theexception of decreased TSH of 0.26 IU/mL and a deficient Vitamin D level of 20.9 ng/mL. His ValproicAcid level was 76.6 ug/mL and his Roxton level was 0.6 mEq/L. History was obtained [...] were restarted at the time of admission: Roxton 300mg AM and 600mg QHS; Lamotrigine 150mg QD; Divalproex ER 1000mg QD; Propranolol 60mg QD and Quetiapine 100mg QHS. A few days into his hos pitalization the Lamotrigine dosage was decreased to 100mg QD and the Roxton carbonate was increased to 600mg BID which the patient tolerated without sideeffects. At the time of discharge his Li levelwas 0.7 mEq/L, Valproic Acid level was 52.5 ug/mL and TSH level had increased to 2.1 IU/mL. He followed treatment recommendations, took ordered medications, actively participated in the groupsand in other milieu activities. His hussain gradually resolved, and he demonstrated resolution of spiritual preoccupation, adventism of good sleep, and improved impulse control. [...] below. Condition on Discharge: Clinically improved; stable. [place] ready to go home. He denied any [...] keys to the [employer] safe to the [facility] ([facility]) office by placing the keys in an envelope ATTN: to Fanta Valencia & Judy Sy - [facility] will call patient to arrange an appointment with therapist Judy Sy for September, -Patient will make an appointment to see his PCP, Dr. Terrence Lucas MD in [place] - Patient stated that he already has an ample supply of his prescription medications, except quetiapine, for which an Rx was called in to [facility] - Patient was provided with the phone number of the [facility]: [phone] Phuc Long MD Site Specialist Attending Addendum I have reviewed, revised, and approved the above discharge summary note, which was originally drafted by the resident. Imelda Zhou MD Attending Psychiatrist documented in this encounter Discharge Instructions InstructionsImelda Zhou - 09/09/2010 Additional Medication Instructions: {additional instructions:79450} Discharge Plans/Follow-up Appointments: - Patient's family will drop off the keys to the [employer] safe to the [facility] ([facility]) office Place the keys in an envelope ATTN: Fanta Valencia & Judy Sy - [facility] will call you to arrange an appointment with your therapist Judy Sy for September, -Please make an appointment with your PCP, Terrence Lucas in [facility] Crisis Services: [facility]: [phone] Medication Prescriptions Called to: Pharmacy: [facility] Phone: documented in this encounter Medications [...] Good insight. Alert and oriented. Diagnostic assessment: Corinth I: Bipolar I disorder, mre manic, severe with psychotic features Corinth V: GAF upon discharge: 50 Suicide risk [...] 0600 EDT Active Multi-Disciplinary problems: INEFFECTIVE COPING [854502] (08/29/10) SENSORY PERCEPTUAL ALTERATION [836849] (09/01/10) ALTERED THOUGHT PROCESSES [183602] (09/01/10) ALTERATION IN SLEEP [621345] (09/01/10) POTENTIAL FOR HARM TO SELF OR OTHERS [714150] (09/02/10) DEFENSIVE COPING [454381] (09/06/10) ANXIETY [989777] (09/07/10) Data: Pt Asleep All night In [...] the keys to the firearms-safe at the [facility] ([facility]) office, improved communication regarding symptoms [...] be added TSH ??? Number for problems 62161 ??? Accession number [id number] Li Levels 08/30/10: 0.6 09/02/10: 0.5 09/07/10: 0.7 Other studies: N/A Assessment/Formulation: Mr. Shepherd is a 59-year old man with a past psychiatric history of bipolar disorder hanna past psychiatric hospitalization at [facility] in 1997 for aggressive behavior related to a manic episodeadmitted to [facility] for safety and stabilization. Patient's admitting symptoms of hussain have mostly resolved. The family meeting was constructive in preparing the patient for discharge. He continues to deny SI. Diagnosis: Corinth I: Bipolar I Disorder, Most recent episode Manic - Moderate Corinth II: Deferred Corinth III: Rosacea on face and chest Plan: [...] 09/08/10 in the afternoon, together with the director of social media marketing, resident, and patient's children and , and [...] dc planning). Imelda Zhou MD Attending Psychiatrist [id number] signed by Imelda Zhou at 09/09/2010 10:49 [...] MD - 09/07/2010 0741 EDT 09/07/2010 ATTENDING FRESH MEAT GRADER NOTE PROBLEM (ID and CC): 59 year old with BPAD HOSPITAL DAY: LOS: 9 days HISTORY: I met with Mr. Shepherd and his and had an extended visit to discuss his BPAD, his recovery and this thyroid function. I also did a safety assessment prior to his pass. He is much improved by both his and His 's report. He went to [employer] (I accompanied team to the Garden) [...] today wearing a shirt with the word Conductor Pullman on the back. 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 He continues [...] wednesday Washington Low MD, MD Attending Psychiatrist exhibition carver Pager [phone] udor (At), John - 09/06/2010 5351 EDT Games: S/O: Pt played Apples [employer] and socialized with others in the group. Pt joined for the final 20 minutes of the game and had some difficulty with the subjective nature of the game. Pt was taught therules by several others in the group but required the rules to be repeated several times. A: [place] thinking, patient, engaged P: Pt continue to participate in groups. Jocelyn chery - 09/06/2010 1444 EDT [employer] S/O. Patient wanted to out with [employer] group. He played CRIS with staff and [...] MD - 09/06/2010 0844 EDT 09/06/2010 ATTENDING FRESH MEAT GRADER NOTE PROBLEM (ID and CC): 59 year old with BPAD HOSPITAL DAY: LOS: 8 days HISTORY: I met with Mr. Shepherd and discussed his care at length. He is in a nice mood today, wearing his old [place] Rule T-shirt. He thinks he is less manic but cleverly says, its all relative. D/W Nursing. Nursing reports he is much improved and looking forward to discharge on Wednesday. Events of last 24 hours reviewed. EXAM: Abner faced 59 year old, [place], 'Old [place] Rule t-shirt. Engaging, yet not intrusive. Admints [...] wednesday Washington Low MD, MD Attending Psychiatrist exhibition carver Pager [phone] Zane (John Courtney - 09/05/2010 1706 EDT Self Reflection: S/O: Pt discussed optimism and positivity, explaining that each person has environmental elements that oppose them but that one can overcome these obstacles. Pt also discussed the importance of having something to focus the mind, whether it is a hindu or a hobby. A: holds strong beliefs, [...] about family meeting planned for Wednesday. Primary Corinth I diagnosis: Bipolar I disorder, mre manic 1. Pharmacologic: Continue current medications. Roxton level ordered for Wednesday. 2. Unit activity: [...] clinical progress). 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 He was quiet throughout but did respond [...] that afternoon we received confirmation from his TRAFFIC RECORDER that the [facility] can indeed hold on to [...] Patient, his , the Attending and the director of social media marketing. 09/08/10 Family meeting. Current facility-administered medications Medication [...] bipolar disorder hanna past psychiatric hospitalization at [facility] in 1997 for aggressive behavior related to [...] his Li levels over the weekend. Diagnosis: Corinth I: Bipolar I Disorder, Most recent episode Manic - Moderate Corinth II: Deferred Corinth III: Rosacea on face and chest Plan: [...] willing to continue them. No signs of Roxton toxicity. A level has been ordered forSunday. [...] dc planning). Imelda Zhou MD Attending Psychiatrist [id number] signed by Imelda Zhou at 09/04/2010 21:56 [...] Patient agreed to an increase in his Roxton to 600 mg bid. Continues to show [...] Resident Progress Note (which is pending). Primary Corinth I diagnosis: Bipolar I disorder, mre manic Note: Spent ~ 35 minutes in patient care on the unit, with ~ 30 minutes total in counseling (including about bipolar diagnosis, long and short-term treatment goals, medication management, safety considerations, dc planning) and coordination of care (including discussion with team re: dc planning, safety considerations, medication management). Imelda Zhou MD Attending Psychiatrist [id number] signed by Imelda Zhou at 09/03/2010 17:51 EDTHenri Marcano - 09/03/2010 1738 EDT [employer] group: S/O: Pt chose songs and while [...] Patient, his , the Attending and the director of social media marketing Current facility-administered medications Medication Route Frequency ??? [...] Collection Time 09/02/102008 Component Value Range ??? Roxton 0.5 (*) 0.6-1.2 (mEq/L) VALPROIC ACID LEVEL Collection Time 09/02/102008 Component Value Range ??? Valproic Acid 52.5 50.0-100.0 (ug/ml) Other studies: N/A Assessment/Formulation: Mr. Shepherd is a 59-year old man with a past psychiatric history of bipolar disorder hanna past psychiatric hospitalization at [facility] in 1997 for aggressive behavior related to [...] on the weekend. He denies SI. Diagnosis: Corinth I: Bipolar I Disorder, Most recent episode Manic - Moderate Corinth II: Deferred Corinth III: Rosacea on face and chest Plan: [...] case and treatment with the treatment team. dredge worker later joined the meeting. Patient discusses the [...] Collection Time 09/02/102008 Component Value Range ??? Roxton 0.5 (*) 0.6-1.2 (mEq/L) Vital Signs: BP [...] concerned spouse. Cooperating with medication changes. Primary Corinth I diagnosis: Bipolar I disorder, mre manic, severe 1. Pharmacologic: Consider increasing Roxton again tomorrow; will be discussed with patient. [...] medication management). Imelda Zhou MD Attending Psychiatrist [id number] signed by Imelda Zhou at 09/02/2010 21:54 [...] 1424 EDT [employer] Group: S/O:Patient attend the [employer] recreation group and soon joined in a game of catch with a [employer] football. When given or thrown the football, [...] disorder and a past psychiatric hospitalization at [facility] ([facility]) in 1997 for aggressive behavior related to a manic episode who was referred for admission to [facility] [place] [facility] after experiencing worsening manic symptoms over the past several weeks. Current Living Situation/Housing: Sebas currently resides in [place], [place] with his of 38 years, Sisi. Family/Support System and Contact Telephone Numbers: Sebas states that he has friends and big, supportive family. His main support is his . Family Constellation/Pertinent Family History: Sebas was born in [place], [place]. His dad was an airplane electrician and mom was a pre sales systems engineer. He number 5 of 8 children. He has 5 sisters and 2 brothers, 1 who is . Sebas completed his associates degree from [employer] and worked for 30 years. He has been disabled since November,. Sebas has been to Sisi for 38 years, and they have a son who is 38 years of age and resides in [place] and a daughter who is 34 years of age and resides in [place], [place]. Sisi is employed as a managerial agency sales management assistant. Sisi and Sebas have 6 grandchildren. [...] know where the hernandez is. He thanked service writer for this talk and is considering hiding the hernandez elsewhere. Sebas also stated that he enjoys fishing and loves to fish with his 4 grandchildren who live in [facility]. He stated, I just want to fit in and act like everyone else. Then I can take my grandkids fishing this summer. Other Social Supports: Sebas and Sisi have friends in the community. Education/Employment Financial: Sisi is employed and Sebas receives disability. Substance Abuse and Treatment History: None Mental Health Treatment History: Prior hospital stays at [facility], [facility] and Other Providers: Legal Issues: None Spiritual/Adventist/Cultural Considerations: Identifies as Yazidism but is of Sabianist [place] Other Issues/Supports/Barriers to Adaptive Functioning: is supportive, but lives quite a distance away Insurance/Pharmacy Coverage: [facility] Assessment: This is a 59 year old man who is feeling he is in an elevated mood and states that he just wants to fit in Plan: Further assess Clarify care needs Schedule family meeting to clarify needs at discharge. Radha Jones - 09/01/2010 1048 EDT Writing for Health Group: S/O: Pt wrote goals for the day, week and for drilling foreman and responded to questions on the Healthy [...] MD - 09/01/2010 0634 EDT 09/01/2010 ATTENDING FRESH MEAT GRADER NOTE REASON FOR HOSPITALIZATION: Hussain HOSPITAL DAY: LOS: 3 days INTERIM HISTORY: Events of past 24h reviewed with nursing staff. Slept well and awoke for the day [id number] (as usual home schedule). No use of [...] of WBC (monocytes) Lytes- normal Depakote- 76.6 Roxton-0.6 (has been on Li 300mg BID for past 2 -3 weeks) ASSESSMENT: BPAD currently manic PLAN: Continue increased pm dose of Roxton Decrease Lamictal to 100mg tomorrow am Remain of frequent observation given boundary concerns Try pass to [employer] today. Tyra Frazier MD Attending Psychiatrist exhibition carver Pager [phone] Tyra Maria MD - 08/31/2010 4082 EDT 08/31/2010 ATTENDING FRESH MEAT GRADER NOTE REASON FOR HOSPITALIZATION: Hussain HOSPITAL DAY: [...] of WBC (monocytes) Lytes- normal Depakote- 76.6 Roxton-0.6 (has been on Li 300mg BID for past 2 -3 weeks) ASSESSMENT: BPAD currently manic PLAN: Continue increased pm dose of Roxton Consider decrease of Lamictal if persistent manic sx Remain of frequent observation given boundary concerns Try pass to garden today. Tyra Frazier MD Attending Psychiatrist exhibition carver Pager [phone] Alicia Hoskins - 08/31/2010 1447 EDT Garden Group: S/O: Pt active in group, joining in game of [employer], which he played in organized manner. Pt [...] 30 minutes. Pt. was social with dog, warehouse material handler and others in group. Pt. spoke [...] therapy groups in the future. A/ calm, [employer] P/ continue attending groups Tyra Frazier MD - 08/30/2010 0753 EDT 08/30/2010 ATTENDING FRESH MEAT GRADER NOTE REASON FOR HOSPITALIZATION: Hussain HOSPITAL DAY: [...] of WBC (monocytes) Lytes- normal Depakote- 76.6 Roxton-0.6 (has been on Li 300mg BID for past 2 -3 weeks) ASSESSMENT: BPAD currently manic PLAN: Continue increased pm dose of Roxton Consider decrease of Lamictal if persistent manic sx Remain of frequent observation given boundary concerns Tyra Frazier MD Attending Psychiatrist exhibition carver Pager [phone] Imelda Jones - 08/29/20102043 EDT Brief Attending Progress Note Date: 08/29/10 Reason for admission: hussain Clinical Update/Subjective: I met with the patient this afternoon, together with the resident, and discussed patient's case and treatment with the resident. See resident H&P report, which is pending, for details. Primary Corinth I diagnosis: Bipolar I disorder, mre manic Imleda Zhou MD Attending Psychiatrist [id number] signed by Imelda Zhou at 08/29/2010 20:49 Mian Berg - 08/29/20101946 EDT Department of Psychiatry-Inpatient Psychiatry Activities Therapy Assessment Diagnosis: Corinth I: Bipolar I Disorder, Most recent episode Manic - Moderate Corinth II: Deferred Corinth III: Rosacea on face and chest Corinth IV: Occupational problems and Other psychosocial or environmental problems Corinth V: 11-20 some danger of hurting self [...] Special Needs or Challenges Manic Pressured speech Hyper-spiritual/mandaeism speech Poor boundaries Assessment: Pt. is a 59 year old male recently admitted to [facility] for increased difficulties with Bipolar Disorder. [...] could benefit from group work while on [facility]. Plan: See M-Team Note Safety and Stabilization MIAN HUMPHRIES 08/29/2010 19:47 dministrator, Tonia - 08/29/2010 0000 EDT documented in this encounter H&P Notes Imelda Zhou - 08/29/2010 1718 EDT Inpatient Admission Psychiatric Evaluation Admit Date: 08/29/2010 Date Of service: 08/30/2010 Referral source: [facility] Outpatient providers: Michaela Gutierrez NP PCP: Dr. Terrence Lucas Information Obtained from: Patient Legal Status: Admission is voluntary Chief Complaint: I am feeling revved up HPI: Mr. Sebas Shepherd is a 59-year old man with a past psychiatric history of bipolar disorder and a past psychiatric hospitalization at [facility] ([facility] in 1997 for aggressive behavior related to a manic episode who was referred for admission to [facility] from [facility] after experiencing worsening manic symptoms [...] safe and cured since he is a mandaeism man and he has the power and [...] he had to be physically retained at [facility]).He provides collateral information (below) and he states [...] Sleep changes: Initial insomnia, Multiple awakenings and electrical/instrument technician awakening III. Appetite changes: Patient denies changes [...] of pyschiatic symptoms Current Support System: Sisi [phone] (H); [phone] (W) Psychiatric History: Previous Diagnosis: Biploar I Disorder Prior Hospitalization: [facility] [place] [facility] (1994,2009), [facility] (1997) Longitudinal Course of Illness: Started in 1993 after his mothers . He cycles between hussain anddepression 3-4x/ year. These cycles have become more frequent over the past few years.. Prior suicide /aggressive/self mutilating behavior: 1997: [facility]-Became aggressive and had to be put in 4-pint restraints for a few days; 2005: Inappropriate kissing of co-worker 2010: Jimd conduct with co-worker Previous medication trials / Prior therapy (with whom): Roxton, Divalproex, Lamotrigine, Risperidone, Quetiapine [facility] Rosacea None Family History (medical/surgical) Social History None See Below Family History (psychiatric) Substance Abuse History Mother had bipolar disorder for which she was hospitalized at [facility] in 1984 None Medications Prescriptions prior to [...] significant other and goodrelationship with children Education: 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 Finds solace in prayer Ethnic and Cultural factors: man born in [place]. Other requests: Patient states if he gets agitated he should be directed back to his room and be oferred PRNS. Significant Developmental / Childhood/ Social history: Born in [place], [place]. Grew up in [place].5th of 8 children. Good childhood Abuse History: [...] Judgment: fair Language: normal Fund of Knowledge: small business representative of education level Short Term Memory: intact Senior Care Memory: intact Capacity for Abstraction: intact Assessment: Mr. Shepherd is a 59-year old man with a past psychiatric history of bipolar disorder hanna past psychiatric hospitalization at [facility] in 1997 for aggressive behavior related to a manic episodewho was referred for admission to [facility] from [facility] after experiencing worsening manic symptoms over [...] denies SI or HI. Multiaxial Diagnostic Impression Corinth I: Bipolar I Disorder, Most recent episode Manic - Moderate Corinth II: Deferred Corinth III: Rosacea on face and chest Corinth IV: Occupational problems and Other psychosocial or environmental problems Corinth V: 11-20 some danger of hurting self or others possible OR occasionally fails to maintain minimal personal hygiene OR gross impairment in communication SUICIDE RISK ASSESSMENT: Modifiable Risk Factors: Vulnerability to painful affective states Non-modifiable risk factors: Older than 55 years old;;Mood disorder Protective factors: Children in home;Sense of responsibility to family & social supports/connections;Satisfaction with life;Adventist prohibition;Outpatient care in place;Capacity to establish therapeutic alliance;Willingness to comply with treatment plan;Capacity to realistically appraise one's self & one's life circumstances Overall Acute Risk Rating: high Overall Chronic Risk Rating: moderate Plan: Bipolar I Disorder - Manic Episode 1. Admit voluntarily to [place] [address], level 4, frequent observation 2. Check routine labs 3. Initiate/Resume medications - Roxton 300mg AM and 600mg QHS - Lamotrigine [...] Imelda Zhou MD, MD Attending Psychiatrist Pager [phone] documented in this encounter Miscellaneous Notes Plan of Care - Eliud Lennon - 09/09/2010 1507 EDT Problem: SENSORY PERCEPTUAL ALTERATION - auditory/visual hallucinations - posturing - restlessness - pacing - increasing agitation - aggression Goal: Patient/Family Participate In Treatment And DC Plans Active Multi-Disciplinary problems: SENSORY PERCEPTUAL ALTERATION [295985] (09/01/10) Data: Pt in dining room at [...] ELIUD LENNON RN 09/09/2010 15:00 [facility] - Jessica Shah RN - 09/08/2010 0482 EDT Problem: ANXIETY Goal: Anxiety Is At [...] bed at end of shift. [facility] - Eliud Lennon - 09/08/2010 1504 EDT Problem: ALTERED THOUGHT PROCESSES Goal: Desires Improvement In Ability To Think & Concentrate Active Multi-Disciplinary problems: INEFFECTIVE COPING [363061] (08/29/10) SENSORY PERCEPTUAL ALTERATION [950073] (09/01/10) ALTERED THOUGHT PROCESSES [808549] (09/01/10) ALTERATION IN SLEEP [783382] (09/01/10) POTENTIAL FOR HARM TO SELF OR OTHERS [694137] (09/02/10) DEFENSIVE COPING [226009] (09/06/10) ANXIETY [686422] (09/07/10) Data: Pt eating breakfast in dining room at 0800. A&O x 4. Denies SI, HI, SH. I'm feeling peaceful and less energized today. Denies pain. Reports having vivid, non-disruptive, non-disturbing dreams. Expressed some mild to moderate anxiety re: family meeting today. Asked who his director of social media marketing is.Concerned about what questions he might be asked and what the right responses are. Action: 1:1 support provided. Confirmed director of social media marketing and meeting time for pt. Medication administered. Prn offered for anxiety. Continues on level III routine observation. Response: Accepted all scheduled medication, declined prn. Lunch in dining room. Attending family meeting at this time. ELIUD LENNON RN 09/08/2010 14:56 lan of [facility] - Nyla Carrasquillo RN - 09/08/2010 0544 EDT Problem: ALTERATION IN SLEEP Goal: FA RESTS/SLEEPS 6-8 HOURS PER DAY Outcome: Met This Shift Active Multi-Disciplinary problems: INEFFECTIVE COPING [882755] (08/29/10) SENSORY PERCEPTUAL ALTERATION [900322] (09/01/10) ALTERED THOUGHT PROCESSES [085107] (09/01/10) ALTERATION IN SLEEP [954447] (09/01/10) POTENTIAL FOR HARM TO SELF OR OTHERS [305514] (09/02/10) DEFENSIVE COPING [909860] (09/06/10) ANXIETY [379021] (09/07/10) Data: Pt was noted to be awake briefly x1 overnoc. No complaints/needs voiced. Action: Monitored for safety on a routine basis throughout the noc. Response: Pt remained safe on the unit; continue to monitor. Nyla Carrasquillo RN 09/08/2010 5:53 lan of [place] - Wallace Arndt RN - 09/07/2010 1262 EDT Problem: DEFENSIVE COPING Goal: Demonstrates Appropriate Social Interactions Outcome: Ongoing Active Multi-Disciplinary problems: INEFFECTIVE COPING [840281] (08/29/10) SENSORY PERCEPTUAL ALTERATION [323258] (09/01/10) ALTERED THOUGHT PROCESSES [593826] (09/01/10) ALTERATION IN SLEEP [735526] (09/01/10) POTENTIAL FOR HARM TO SELF OR OTHERS [445239] (09/02/10) DEFENSIVE COPING [005066] (09/06/10) ANXIETY [205937] (09/07/10) Data: Locus of harm level 3. No SI/HI. Roxton level 0.7. Full affect. States his mood [...] [facility] - Flores Ontiveros RN - 09/07/2010 114 EDT Problem: ANXIETY Goal: Anxiety Is At Manageable Level Outcome: Ongoing Active Multi-Disciplinary problems: INEFFECTIVE COPING [301261] (08/29/10) SENSORY PERCEPTUAL ALTERATION [060297] (09/01/10) ALTERED THOUGHT PROCESSES [336554] (09/01/10) ALTERATION IN SLEEP [195209] (09/01/10) POTENTIAL FOR HARM TO SELF OR OTHERS [136988] (09/02/10) DEFENSIVE COPING [539424] (09/06/10) ANXIETY [485302] (09/07/10) Data: Patient expressed anxiety over his [...] hrs. Patient had Lthium Level drawn today. Roxton level is 0.7 Patient returned from passat 1500 hrs. He and his both stated that the pass went very well. They spent time walking around enjoying the out doors. Flores Ontiveros RN 09/07/2010 11:28 lan of [place] - Tahir Seymour - 09/07/2010 0626 EDT Problem: ALTERATION IN SLEEP Goal: Informs Staff If Unable To Sleep Outcome: Ongoing Active Multi-Disciplinary problems: INEFFECTIVE COPING [200287] (08/29/10) SENSORY PERCEPTUAL ALTERATION [876268] (09/01/10) ALTERED THOUGHT PROCESSES [151549] (09/01/10) ALTERATION IN SLEEP [021071] (09/01/10) POTENTIAL FOR HARM TO SELF OR OTHERS [19471005] (09/02/10) DEFENSIVE COPING [19641006] (09/06/10) Data: Pt asleep at start of shift. Awake x 2 for brief times. Action: Monitored for safety. Response: Slept approximately 7 hours on assistant casino shift manager. TAHIR SEYMOUR RN 09/07/2010 6:24 lan of [facility] - Wallace Arndt RN - 09/06/2010 2240 EDT Problem: DEFENSIVE COPING Goal: Demonstrates Appropriate Social Interactions Outcome: Ongoing Active Multi-Disciplinary problems: INEFFECTIVE COPING [868236] (08/29/10) SENSORY PERCEPTUAL ALTERATION [897819] (09/01/10) ALTERED THOUGHT PROCESSES [397225] (09/01/10) ALTERATION IN SLEEP [180826] (09/01/10) POTENTIAL FOR HARM TO SELF OR OTHERS [19471005] (09/02/10) DEFENSIVE COPING [19641006] (09/06/10) Data: Locus of harm level 3. No SI/HI. Full affect. Increased energy. No grandiose comments made. Noinappropriate behavior. Mood WDL. Social with other patients. On computer during beginning of games group. Attended the end of games group. 4 hour pass ordered for tomorrow. Roxton level ordered for tomorrow at 0600. No [...] Wallace Arndt RN 09/06/2010 22:29 lan of [facility] Flores Ontiveros RN - 09/06/2010 1154 EDT Problem: ALTERED THOUGHT PROCESSES Goal: Desires Improvement In Ability To Think & Concentrate Outcome: Met This Shift Active Multi-Disciplinary problems: INEFFECTIVE COPING [310903] (08/29/10) SENSORY PERCEPTUAL ALTERATION [654848] (09/01/10) ALTERED THOUGHT PROCESSES [477093] (09/01/10) ALTERATION IN SLEEP [597162] (09/01/10) POTENTIAL FOR HARM TO SELF OR OTHERS [200646] (09/02/10) Data: Patient has been very pleasant [...] Flores Ontiveros RN 09/06/2010 11:47 lan of [facility] Tahir Nguyen - 09/06/2010 0610 EDT Problem: ALTERATION IN SLEEP Goal: Informs Staff If Unable To Sleep Outcome: Ongoing Active Multi-Disciplinary problems: INEFFECTIVE COPING [902134] (08/29/10) SENSORY PERCEPTUAL ALTERATION [216983] (09/01/10) ALTERED THOUGHT PROCESSES [340731] (09/01/10) ALTERATION IN SLEEP [377684] (09/01/10) POTENTIAL FOR HARM TO SELF OR OTHERS [144376] (09/02/10) Data: Pt asleep at start of shift. Appeared to sleep well with two brief observable awakenings. Action: Monitored for safety. Response: Pt slept approximately 7.5 hours on assistant casino shift manager. TAHIR SEYMOUR RN 09/06/2010 6:09 lan of [facility] - Zeynep Giron RN - 09/05/2010 2161 EDT Problem: INEFFECTIVE COPING Goal: Participates In Unit Activities Outcome: Met This Shift Active Multi-Disciplinary problems: INEFFECTIVE COPING [926457] (08/29/10) SENSORY PERCEPTUAL ALTERATION [180646] (09/01/10) ALTERED THOUGHT PROCESSES [924307] (09/01/10) ALTERATION IN SLEEP [157209] (09/01/10) POTENTIAL FOR HARM TO SELF OR OTHERS [225836] (09/02/10) Data: Pt slightly intrusive physically at [...] complaints. Zeynep Giron RN 09/05/2010 22:32 Problem: SENSORY PERCEPTUAL ALTERATION - auditory/visual hallucinations - posturing - restlessness - pacing - increasing agitation - aggression Goal: Participates In Unit Activities Outcome: Met This Shift Active Multi-Disciplinary problems: INEFFECTIVE COPING [004239] (08/29/10) SENSORY PERCEPTUAL ALTERATION [530903] (09/01/10) ALTERED THOUGHT PROCESSES [482694] (09/01/10) ALTERATION IN SLEEP [113873] (09/01/10) POTENTIAL FOR HARM TO SELF OR OTHERS [302419] (09/02/10) Data: Pt slightly intrusive physically at [...] This Shift Active Multi-Disciplinary problems: INEFFECTIVE COPING [251767] (08/29/10) SENSORY PERCEPTUAL ALTERATION [390881] (09/01/10) ALTERED THOUGHT PROCESSES [856933] (09/01/10) ALTERATION IN SLEEP [512111] (09/01/10) POTENTIAL FOR HARM TO SELF OR OTHERS [374768] (09/02/10) Data: Pt slightly intrusive physically at [...] complaints. Zeynep Giron RN 09/05/2010 22:32 lan [facility] - Mian Jones RN - 09/05/2010 1426 EDT Problem: INEFFECTIVE COPING Goal: Participates In Unit Activities Outcome: Ongoing Active Multi-Disciplinary problems: INEFFECTIVE COPING [315474] (08/29/10) Data: Pt reports doing well today [...] Outcome: Ongoing Active Multi-Disciplinary problems: INEFFECTIVE COPING [250407] (08/29/10) Data: When asked how he was [...] Outcome: Ongoing Active Multi-Disciplinary problems: INEFFECTIVE COPING [660038] (08/29/10) Data: When asked how he was [...] Mian Jones RN 09/05/2010 14:26 lan of [facility] - Tahir Seymour - 09/05/2010 0626 EDT Problem: ALTERATION IN SLEEP Goal: Informs Staff If Unable To Sleep Outcome: Ongoing Active Multi-Disciplinary problems: INEFFECTIVE COPING [317421] (08/29/10) SENSORY PERCEPTUAL ALTERATION [143388] (09/01/10) ALTERED THOUGHT PROCESSES [734282] (09/01/10) ALTERATION IN SLEEP [789072] (09/01/10) POTENTIAL FOR HARM TO SELF OR OTHERS [111235] (09/02/10) Data: Pt asleep at start of shift. Appeared to sleep well with one brief awakening. Action: Monitored for safety. Response: Pt slept approximately 8 hours on assistant casino shift manager. TAHIR SEYMOUR RN 09/05/2010 6:25 lan of [facility] Zeynep Giron RN - 09/04/2010 2247 EDT Problem: INEFFECTIVE COPING Goal: Participates In Unit Activities Outcome: Met This Shift Active Multi-Disciplinary problems: INEFFECTIVE COPING [485307] (08/29/10) SENSORY PERCEPTUAL ALTERATION [391580] (09/01/10) ALTERED THOUGHT PROCESSES [629689] (09/01/10) ALTERATION IN SLEEP [599552] (09/01/10) POTENTIAL FOR HARM TO SELF OR OTHERS [384393] (09/02/10) Data: Pt up and out of [...] This Shift Active Multi-Disciplinary problems: INEFFECTIVE COPING [281295] (08/29/10) SENSORY PERCEPTUAL ALTERATION [526366] (09/01/10) ALTERED THOUGHT PROCESSES [869411] (09/01/10) ALTERATION IN SLEEP [277022] (09/01/10) POTENTIAL FOR HARM TO SELF OR OTHERS [398044] (09/02/10) Data: Pt up and out of [...] This Shift Active Multi-Disciplinary problems: INEFFECTIVE COPING [440908] (08/29/10) SENSORY PERCEPTUAL ALTERATION [767841] (09/01/10) ALTERED THOUGHT PROCESSES [147713] (09/01/10) ALTERATION IN SLEEP [400834] (09/01/10) POTENTIAL FOR HARM TO SELF OR OTHERS [346702] (09/02/10) Data: Pt up and out of [...] Care - Mian Jones RN - 09/04/2010 2514 EDT Problem: INEFFECTIVE COPING Goal: Participates In Unit Activities Outcome: Ongoing Active Multi-Disciplinary problems: INEFFECTIVE COPING [424542] (08/29/10) Data: When asked how he was [...] Outcome: Ongoing Active Multi-Disciplinary problems: INEFFECTIVE COPING [750470] (08/29/10) Data: When asked how he was [...] Outcome: Ongoing Active Multi-Disciplinary problems: INEFFECTIVE COPING [553952] (08/29/10) Data: When asked how he was [...] Mian Jones RN 09/04/2010 14:24 lan of [facility] - Tahir Seymour - 09/04/2010 0574 EDT Problem: ALTERATION IN SLEEP Goal: Informs Staff If Unable To Sleep Outcome: Ongoing Active Multi-Disciplinary problems: INEFFECTIVE COPING [178967] (08/29/10) SENSORY PERCEPTUAL ALTERATION [050115] (09/01/10) ALTERED THOUGHT PROCESSES [348706] (09/01/10) ALTERATION IN SLEEP [826260] (09/01/10) POTENTIAL FOR HARM TO SELF OR OTHERS [649532] (09/02/10) Data: Pt awake periodically through the night for brief periods. Action: Monitored for safety. Response: Pt slept approximately 6 hours on assistant casino shift manager. TAHIR SEYMOUR RN 09/04/2010 5:51 lan of [facility] - Zeynep Giron RN - 09/03/2010 6308 EDT Problem: ALTERED THOUGHT PROCESSES Goal: Desires Improvement In Ability To Think & Concentrate Outcome: Met This Shift Active Multi-Disciplinary problems: INEFFECTIVE COPING [773443] (08/29/10) SENSORY PERCEPTUAL ALTERATION [519799] (09/01/10) ALTERED THOUGHT PROCESSES [245753] (09/01/10) ALTERATION IN SLEEP [104837] (09/01/10) POTENTIAL FOR HARM TO SELF OR OTHERS [041134] (09/02/10) Data: Up and out of his [...] Shift Active Multi-Disciplinary problems: ALTERED THOUGHT PROCESSES [073790] (09/01/10) IData: Says his mood is great. During 1:1 noted some irritability, some pressured speech and notedthoughts were disorganized. Thoughts difficult to follow at this time. Pt thought maybe he could usemore Roxton. Received additional dose of Roxton in the morning per MD order. Action: [...] and reasons Active Multi-Disciplinary problems: INEFFECTIVE COPING [543471] (08/29/10) SENSORY PERCEPTUAL ALTERATION [159335] (09/01/10) ALTERED THOUGHT PROCESSES [815737] (09/01/10) ALTERATION IN SLEEP [994216] (09/01/10) POTENTIAL FOR HARM TO SELF OR OTHERS [422725] (09/02/10) Data: Pt awake once for briefly otherwise appeared to sleep well. No complaints voiced this shift. Action: Maintained on routine observation. Response: Continue to monitor. Tammy Law RN 09/03/2010 6:44 lan of [facility] - Hanna Chery RN - 09/02/2010 1812 EDT Problem: INEFFECTIVE COPING Goal: Participates In Unit Activities Outcome: Ongoing Active Multi-Disciplinary problems: INEFFECTIVE COPING [600168] (08/29/10) SENSORY PERCEPTUAL ALTERATION [348578] (09/01/10) ALTERED THOUGHT PROCESSES [753291] (09/01/10) ALTERATION IN SLEEP [959554] (09/01/10) POTENTIAL FOR HARM TO SELF OR OTHERS [476286] (09/02/10) Data: Affect Angry. Pt discussed wanting [...] here any longer. pt also reminded this service writer that he is here on a voluntary [...] Outcome: Ongoing Active Multi-Disciplinary problems: INEFFECTIVE COPING [600558] (08/29/10) SENSORY PERCEPTUAL ALTERATION [783466] (09/01/10) ALTERED THOUGHT PROCESSES [297980] (09/01/10) ALTERATION IN SLEEP [410274] (09/01/10) POTENTIAL FOR HARM TO SELF OR OTHERS [596910] (09/02/10) Data: Affect Angry. Pt discussed wanting [...] here any longer. pt also reminded this service writer that he is here on a voluntary basis. This RN explained the procedure for leaving. When ptlearned that he could possibly become involuntary through the crisis screening process he did not pursue the process. Affect remains angry. Hanna Chery RN 09/02/2010 17:47 Problem: POTENTIAL FOR HARM TO SELF OR OTHERS Goal: Participates In Unit Activities Outcome: Ongoing Active Multi-Disciplinary problems: INEFFECTIVE COPING [505331] (08/29/10) SENSORY PERCEPTUAL ALTERATION [761370] (09/01/10) ALTERED THOUGHT PROCESSES [013843] (09/01/10) ALTERATION IN SLEEP [478997] (09/01/10) POTENTIAL FOR HARM TO SELF OR OTHERS [642694] (09/02/10) Data: Affect Angry. Pt discussed wanting [...] here any longer. pt also reminded this service writer that he is here on a voluntary [...] Outcome: Ongoing Active Multi-Disciplinary problems: INEFFECTIVE COPING [778150] (08/29/10) ALTERED THOUGHT PROCESSES [031691] (09/01/10) ALTERATION IN SLEEP [070534] (09/01/10) Data: Locus of harm level 3 [...] Outcome: Ongoing Active Multi-Disciplinary problems: INEFFECTIVE COPING [010364] (08/29/10) ALTERED THOUGHT PROCESSES [126645] (09/01/10) ALTERATION IN SLEEP [991382] (09/01/10) Data: Locus of harm level 3 [...] This Shift Active Multi-Disciplinary problems: INEFFECTIVE COPING [728498] (08/29/10) ALTERED THOUGHT PROCESSES [083341] (09/01/10) ALTERATION IN SLEEP [389362] (09/01/10) Data: Pt sleep at the start of shift. Intermittent sleep. Pt waving at staff when awake. Action: monitor quality and duration of sleep. . Response: Pt notifies staff when not asleep. Denies need for intervention. Quickly asleep on own. 6.5 hours of sleep Fatoumata Frias RN 09/02/2010 6:40 lan of [place] - Hanna Chery RN - 09/01/2010 8648 EDT Problem: INEFFECTIVE COPING Goal: Participates In Unit Activities Outcome: Ongoing Active Multi-Disciplinary problems: INEFFECTIVE COPING [209139] (08/29/10) ALTERED THOUGHT PROCESSES [987955] (09/01/10) ALTERATION IN SLEEP [508659] (09/01/10) Data: pt social in milieu, watched television with peers. Action: medication,1:1 Response: Denies s/i or h/i. Denies pain. Behavior in control. Pleasant upon all interactions. Hanna Chery RN 09/01/2010 22:44 Problem: SENSORY PERCEPTUAL ALTERATION - auditory/visual hallucinations - posturing - restlessness - pacing - increasing agitation - aggression Goal: Participates In Unit Activities Outcome: Ongoing Active Multi-Disciplinary problems: INEFFECTIVE COPING [739781] (08/29/10) ALTERED THOUGHT PROCESSES [311104] (09/01/10) ALTERATION IN SLEEP [528049] (09/01/10) Data: pt social in milieu, watched television with peers. Action: medication,1:1 Response: Denies s/i or h/i. Denies pain. Behavior in control. Pleasant upon all interactions. Hanna Chery RN 09/01/2010 22:44 lan of [place] - Rody Hendricks RN - 09/01/2010 1154 EDT Problem: INEFFECTIVE COPING Goal: Participates In Unit Activities Outcome: Met This Shift Active Multi-Disciplinary problems: INEFFECTIVE COPING [832772] (08/29/10) ALTERED THOUGHT PROCESSES [501167] (09/01/10) ALTERATION IN SLEEP [373207] (09/01/10) Data: Says his mood is good. [...] This Shift Active Multi-Disciplinary problems: INEFFECTIVE COPING [416837] (08/29/10) SENSORY PERCEPTUAL ALTERATION [304510] (09/01/10) ALTERED THOUGHT PROCESSES [922851] (09/01/10) ALTERATION IN SLEEP [179748] (09/01/10) Data: Pt slept soundly until 0400, [...] Outcome: Ongoing Active Multi-Disciplinary problems: INEFFECTIVE COPING [594420] (08/29/10) Data: Pt's family visited this shift. [...] This Shift Active Multi-Disciplinary problems: INEFFECTIVE COPING [876996] (08/29/10) Data: Again Pt states he is [...] Admission Process Active Multi-Disciplinary problems: INEFFECTIVE COPING [870075] (08/29/10) Data: Pt asleep when rec'd for care at 2330. Action: Pt monitored on frequent obs for safety. Response: Pt awake for about 30 mins at 0500, returned to sleep. Currently asleep, no complaints. Karma Leigh RN 08/31/2010 6:54 lan of [facility] Dev Cohen - 08/30/2010 1856 EDT Problem: INEFFECTIVE COPING Goal: Participates In Unit Activities Outcome: Ongoing Active Multi-Disciplinary problems: INEFFECTIVE COPING [666022] (08/29/10) Data: Pt had family visit this [...] 2100 [facility] [place] [facility] Pleasant and agreeable, no sign of intrusive behavior Hanna Chery RN 08/30/2010 18:52 lan of [place] - Rody Hendricks RN - 08/30/2010 1657 EDT Problem: INEFFECTIVE COPING Goal: Participates In Unit Activities Outcome: Met This Shift Active Multi-Disciplinary problems: INEFFECTIVE COPING [301544] (08/29/10) Data: Pt states he is a [...] Hendricks RN 08/30/2010 16:50 lan of [facility] Schroeedr RN - 08/30/2010 0654 EDT Problem: INEFFECTIVE COPING Goal: Cooperates With Admission Process Active Multi-Disciplinary problems: INEFFECTIVE COPING [328233] (08/29/10) Data: Pt asleep when rec'd for [...] Outcome: Ongoing Active Multi-Disciplinary problems: INEFFECTIVE COPING [467624] (08/29/10) Data: Pt is pleasant and cooperative. Answers questions as asked. Action: 1:1, medications Response: Continue to provide therapeutic environment. Hanna Chery, IBAN 08/29/2010 19:17 canned Note-Null - Yield Engineer, Scan - 08/29/2010 0000 EDT Scanned Note-Null - Yield Engineer, Scan - 08/29/2010 0000 EDT Scanned Note-Null - Yield Engineer, Scan - 08/29/2010 0000 EDT Scanned Note-Null - Yield Engineer, Scan - 08/29/2010 0000 EDT Scanned Note-Null - Yield Engineer, Scan - 08/29/2010 0000 EDT Plan of Care - Yield Engineer, Scan - 08/29/2010 0000 EDT documented in [...] TSH [facility] Number for problems [id number] [facility] Accession number [id number] [facility] Specimen Performing Organization Address City/State/ZIP Code Phon e Number [facility] [address] [place] [address] SERVICES [facility] [address] [place] [address] TSH (09/07/2010 7:29 EDT) Pathologist Sig nature TSH 2.10 0.35 - 5.00 uIU/ml [facility] Specimen Performing Organization Address City/[facility]/ZIP Code Phon e Number [facility] [address] [place] [address] SERVICES [facility] [address] [place] [address] LITHIUM (09/07/2010 7:29 EDT) Pathologist Sig nature Roxton 0.7 0.6 - 1.2 mEq/L [facility] Specimen Blood specimen (specimen) Performing Organization Address City/[facility]/ZIP Code Phon e Number [facility] [address] [place] [address] SERVICES [facility] [address] [place] [address] VALPROIC ACID LEVEL (09/02/2010 20:09 EDT) Pathologist Sig nature Valproic Acid 52.5 50.0 - 100.0 ug/ml [facility] Specimen Blood specimen (specimen) Performing Organization Address [facility]/ZIP Code Phon e Number [facility] [address] [place] [address] SERVICES [facility] [address] [place] [address] (ABNORMAL) LITHIUM (09/02/2010 20:09 EDT) Pathologist Sig nature Roxton 0.5 (L) 0.6 - 1.2 mEq/L [facility] Specimen Blood specimen (specimen) Performing Organization Address City/[facility]/ZIP Code Phon e Number [facility] [address] [place] [address] SERVICES [facility] [address] [place] [address] VITAMIN D (25,OH) (08/30/2010 7:23 EDT) 25OH Vitamin D Tot 20.9 ng/ml [facility] Comment: LAB Reference Range: <10 ng/ml: Deficient 10-30 ng/m l: Insufficient 30-100 ng/ml: Sufficient >100 ng/ml: Toxic Specimen Blood specimen (specimen) Performing Organization Address City/[facility]/ZIP Code Phon e Number [facility] [address] [place] [address] SERVICES [facility] [address] [place] [address] ETHANOL, BLOOD (08/30/2010 7:23 EDT) Pathologist Sig nature Ethanol <10 <10 mg/dl [facility] Specimen Blood specimen (specimen) Performing Organization Address City/State/ZIP Code Phon e Number [facility] [address] [place] [address] SERVICES [facility] [address] [place] [address] VALPROIC ACID LEVEL (08/30/2010 7:23 EDT) Pathologist Sig nature Valproic Acid 76.6 50.0 - 100.0 ug/ml [facility] Specimen Blood specimen (specimen) Performing Organization Address [facility] Phon e Number [facility] [address] [place] [address] SERVICES [facility] [address] [place] [address] LITHIUM (08/30/2010 7:23 EDT) Pathologist Sig nature Roxton 0.6 0.6 - 1.2 mEq/L [facility] Specimen Blood specimen (specimen) Performing Organization Address [facility] Phon e Number [facility] [address] [place] [address] SERVICES [facility] [address] [place] [address] FOLATE (08/30/2010 7:23 EDT) Pathologist Sig nature Folate 17.9 ng/mL [facility] Comment: Deficient: ??Less than 3.4 n g/mL Indeterminate: ??3.4-5.4 ng/mL Normal: ??Greater than 5.4 ng/mL Specimen Blood specimen (specimen) Performing Organization Address [facility] Phon e Number [facility] [address] [place] [address] SERVICES [facility] [address] [place] [address] VITAMIN B12 (08/30/2010 7:23 EDT) Pathologist Sig nature Vitamin B-12 593 211 - 911 pg/ml [facility] Specimen Blood specimen (specimen) Performing Organization Address [facility]/ZIP [facility] Number [facility] [address] [place] [address] SERVICES [facility] [address] [place] [address] (ABNORMAL) HEMAGRAM AND DIFFERENTIAL (08/30/2010 7:23 EDT) Pathologist Sig nature WBC 11.40 (H) 4.0 - 10.4 K/cmm [facility] RBC 4.86 4.36 - 5.78 M/cmm [facility] Hemoglobin 15.4 13.8 - 17.3 gm/dl [facility] HCT 45.0 39.5 - 50.2 % [facility] MCV 93 81 - 95 fl [facility] MCH 31.7 27.6 - 33.0 pg [facility] MCHC 34.2 32.8 - 36.4 gm/dl [facility] PLT 229 141 - 320 K/cmm [facility] RDW-CV 13.2 11.8 - 14.1 % [facility] Neutrophils 68.5 45.5 - 79.7 % [facility] Lymphocytes 16.6 15.0 - 46.8 % [facility] Monocytes 10.1 1.8 - 12.0 [...] Number [facility] [address] [place] [address] SERVICES [facility] [address] [place] [address] (ABNORMAL) TSH (08/30/2010 7:23 EDT) Pathologist Sig nature TSH 0.26 (L) 0.35 - 5.00 uIU/ml [facility] Specimen Blood specimen (specimen) Performing Organization Address City/[facility]/ZIP Code Phon e Number [facility] [address] [place] [address] SERVICES [facility] [address] [place] [address] ALT (08/30/2010 7:23 EDT) Pathologist Sig nature ALT 23 21 - 72 U/L [facility] Specimen Blood specimen (specimen) Performing Organization Address City/State/ZIP Code Phon e Number [facility] [address] [place] [address] SERVICES [facility] [address] [place] [address] AST (08/30/2010 7:23 EDT) Pathologist Sig nature AST 24 15 - 46 U/L [facility] Specimen Blood specimen (specimen) Performing Organization Address City/[facility]/ZIP Code Phon e Number [facility] [address] [place] [address] SERVICES [facility] [address] [place] [address] ALBUMIN (08/30/2010 7:23 EDT) Pathologist Sig nature Albumin 4.7 3.4 - 4.9 g/dl [facility] Specimen Blood specimen (specimen) Performing Organization Address City/[facility]/ZIP Code Phon e Number [facility] [address] [place] [address] SERVICES [facility] [address] [place] [address] GGT (08/30/2010 7:23 EDT) Pathologist Sig nature GGT 19 15 - 73 U/L [facility] Specimen Blood specimen (specimen) Performing Organization Address City/[facility]/ZIP Code Phon e Number [facility] [address] [place] [address] SERVICES [facility] [address] [place] [address] ALKALINE PHOSPHATASE (08/30/2010 7:23 EDT) Pathologist Sig nature Total Alkaline 58 38 - 126 U/L [facility] Phosphatase Specimen Blood specimen (specimen) Performing Organization Address City/[facility]/ZIP Code Phon e Number [facility] [address] [place] [address] SERVICES [facility] [address] [place] [address] CREATININE (08/30/2010 7:23 EDT) Pathologist Sig nature Creatinine 0.96 0.7 - 1.5 mg/dl [facility] GFR, Calculated >60 ml/min/1.73m2 [facility] Specimen Blood specimen (specimen) Performing Organization Address City/State/ZIP Code Phon e Number [facility] [address] [place] [address] SERVICES [facility] [address] [place] [address] BUN (08/30/2010 7:23 EDT) Pathologist Sig nature BUN 10 10 - 26 mg/dl [facility] Specimen Blood specimen (specimen) Performing Organization Address [facility]/ZIP Code Phon e Number [facility] [address] [place] [address] SERVICES [facility] [address] [place] [address] (ABNORMAL) ELECTROLYTES (08/30/2010 7:23 EDT) Pathologist Sig nature Sodium 146 (H) 136 - 145 mEq/L [facility] Potassium 4.8 3.5 - 5.0 mEq/L [facility] Chloride 108 96 - 110 mEq/L [facility] CO2 27 24 - 32 mEq/L [facility] Specimen Blood specimen (specimen) Performing Organization Address [facility] Phon e Number [facility] [address] [place] [address] SERVICES [facility] [address] [place] [address] SCREENING GLUCOSE (08/30/2010 7:23 EDT) Pathologist Sig [facility] Glucose, Screening 80 70 - 100 mg/dl [facility] Specimen Blood specimen (specimen) Performing Organization Address City/[facility]/ZIP Code Phon e Number [facility] [address] [place] [address] SERVICES [facility] [address] [place] [address] UA REFLEX (08/30/2010 5:28 EDT) Pathologist Sig nature UA Billing Microscopic not [facility] indicated. Specimen Performing Organization Address City/[facility]/ZIP Code Phon e Number [facility] [address] [place] [address] SERVICES [facility] [address] [place] [address] URINALYSIS (08/30/2010 5:28 EDT) Pathologist Sig nature Color, UA Yellow [facility] Clarity, UA Clear [facility] Glucose, UA Neg NEG [facility] Bilirubin, UA Neg NEG [facility] Ketones, UA Neg NEG [facility] Specific [place], <1.005 1.001 - 1.035 [facility] [...] Number [facility] [address] [place] [address] SERVICES [facility] [address] [place] [address] documented in this encounter Visit Diagnoses Diagnosis Bipolar I disorder, most recent episode (or current) manic, moderate (HCC-CMS) ([facility]) - Primary Bipolar I disorder, most recent [...] 09/09/2010 documented in this encounter Care Teams Surface Logging Systems Logger Relationship Specialty Start Date End Date None, Provider PCP - General 08/29/10 documented as of this encounter
--- OUTSIDE RECORDS SUMMARY | 2022-02-05 14:37 | XMS_ITS | Encounter Summary ---
:1950 [place] [address] Care Team Providers Name Role Phone Jose Eduardo Barboza MD Primary Care Provider [phone] Encounter Details Date Type Department Care Team Description 01/02/2022 Orders Only Psychiatry Tayo Lindsay MD [facility] [place] [address] [place] [id number] [phone] (Wo rk) Social History Tobacco Use Types Packs/Day Years Used Date Never Smoker Smokeless Tobacco: Never Used Alcohol Use Standard Drinks/Week Comments Never 0 (1 standard drink = 0.6 oz pure alcoho l) Sex Assigned at Date Recorded Not on file documented as of this encounter Progress Notes Tayo Lindsay MD - 01/02/2022 5:36 PM EDT Patient had difficulty receiving medications due to logistical issues regarding hospital MEGA number and resident prescribing medication. Lorazepam 1 mg po TID 30 day supply [facility] in [facility]. documented in this encounter Plan of Treatment Not on filedocumented as of this encounter Visit Diagnoses Not on filedocumented in this encounter Care Teams Feller Machine Operator Relationship Specialty Start Date End Date Jose Eduardo Barboza MD PCP - General Family Medicine 02/09/[address] [place] [address] documented as of this encounter
--- OUTSIDE RECORDS SUMMARY | 2022-02-05 14:37 | XMS_ITS | Encounter Summary ---
:1950 Author Organization [facility] [place] [address] Care Team Providers Name Role Phone Jose Eduardo Barboza MD Primary Care Provider [phone] Encounter Details Date Type Department Care Team Description 01/02/2022 Telephone Psychiatry and [facility]al [facility] [place] [address] Social History Tobacco Use Types Packs/Day Years Used Date Never Smoker Smokeless Tobacco: Never Used Alcohol Use Standard Drinks/Week Comments Never 0 (1 standard drink = 0.6 oz pure alcoho l) Sex Assigned at Date Recorded Not on file documented as of this encounter Miscellaneous Notes Telephone Encounter - Lanette Shay - 01/02/2022 4:44 PM EDT Pharmacy called and stated that the numbers for Dr. Devora Alcala are not working and the patient's stated to them, he will end up back in the hospital if he does not get Lorazapram. Pharmacy- [phone] documented in this encounter Plan of Treatment Not on filedocumented as of this encounter Visit Diagnoses Not on filedocumented in this encounter Care Teams Inspector Agricultural Commodities Relationship Specialty Start Date End Date Jose Eduardo Barboza MD PCP - General Family Medicine 02/09/[address] [facility] [address] [place] [address] documented as of this encounter
--- OUTSIDE RECORDS SUMMARY | 2022-02-05 14:37 | XMS_ITS | Encounter Summary ---
:[address] [facility] Address [address] [place] [address] Care Team Providers Name Role Phone None, Provider Primary Care Provider Unavailable Encounter Details Date Type Department Care Team Description 11/22/2020 Lab Requisition [facility] Outr Resulting Lab, Pathology & Laboratory Provider General acute hospital [address] [place], [place] [address] Social History Tobacco Use Types Packs/Day Years [...] Name Priority Date/Time Associated Diagnosis Comme nts HSV (HERPES SIMPLEX Routine 11/21/2020 20:25 Resu lts for this VIRUS) MOLECULAR EDT procedure a re in DETECTION, PCR the results section. 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. It has not been cleared or [...] laboratory testing. Specimen Fluid - Cerebrospinal fluid specimen (sp ecimen) Performing Organization Address City/State/ZIP Code Phon e Number [facility] [address] [place] [address] SERVICES documented in this encounter Visit Diagnoses Not on filedocumented in this encounter Care Teams Patient Services Assistant Relationship Specialty Start Date End Date None, Provider PCP - General 08/29/10 documented as of this encounter
--- OUTSIDE RECORDS SUMMARY | 2022-02-05 14:37 | XMS_ITS | Encounter Summary ---
:1950 Author Organization [facility] Address [address] [place] [address] Care Team Providers Name Role Phone None, Provider Primary Care Provider Unavailable Encounter Details Date Type Department Care Team Description 11/05/2021 Lab Requisition [facility] Outr Resulting Lab, Pathology & Laboratory Provider [facility] [address] [place], [place] [address] Social History Tobacco Use Types Packs/Day Years [...] 10:38 EDT) Pathologist Sig nature Hold Hold [facility] Specimen Blood - Venous blood (substance) Performing Organization Address City/State/ZIP Code Phon e Number [facility] [address] [place] [address] SERVICES (ABNORMAL) T3 FREE (11/05/2021 10:38 EDT) Pathologist Sig nature T3, Free 2.7 (L) 2.8 - 5.3 pg/mL [facility] SERVICES Specimen Blood - Venous blood (substance) Performing Organization Address City/State/ZIP Code Phon e Number [facility] [address] [place] [address] SERVICES PROLACTIN (11/05/2021 10:38 EDT) Pathologist Sig nature Prolactin 9.5 2.1 - 17.7 ng/mL [facility] SERVICES Specimen Blood - Venous blood (substance) Performing Organization Address City/[facility]/ZIP Code Phon e Number [facility] [address] [place] [address] SERVICES documented in this encounter Visit Diagnoses Not on filedocumented in this encounter Care Teams Manager Inventory Relationship Specialty Start Date End Date None, Provider PCP - General 08/29/10 documented as of this encounter
--- OUTSIDE RECORDS SUMMARY | 2022-02-05 14:37 | XMS_ITS | Clinical Summary ---
:1950 Author Organization [facility] [place] [address] Care Team Providers Name Role Phone Jose Eduardo Barboza MD Primary Care Provider [phone] Allergies Active Allergy Reactions Severity Noted Date Comments Hymenoptera Allergenic 06/23/2021 Other reaction(s): Extract anaphylaxis/ang ioedema Venom-Wasp 08/29/2010 Medications Medication Sig Dispensed Refills Start End Date Status Date aspirin 81 mg Tablet, Take 81 mg by 0 Active Chewable mouth daily. folic acid (Folvite) 1 mg Take 1 mg by 0 Active Tablet mouth daily. melatonin 3 mg Tablet Take 3 mg by 0 Active mouth nightly. mirtazapine (REMERON) 45 Take 45 mg by 0 Active mg Tablet mouth nightly. senna-docusate Take 1 tablet by 0 Active (Pericolace) 8.6-50 mg mouth daily. Tablet thiamine (Vitamin B1) 100 Take 100 mg by 0 Active mg mouth Daily. 2 LORazepam (Ativan) 1 mg Take 1 tablet by 120 tablet 0 12/24/19 2 Active Tablet mouth 3 times 2 daily. May also take 1 tablet nightly as needed for Anxiety. buPROPion SR (Wellbutrin Take 1 tablet by 60 tablet 0 12/24/19 2 Active SR) 100 mg tablet mouth 2 times 2 sustained-release 12 hr daily. OLANZapine (ZyPREXA) 7.5 Take 1 tablet by 30 tablet 0 12/24/19 2 Active mg Tablet mouth nightly. 2 polyethylene glycoL Take 17 g by 14 each 0 Active (Miralax) 17 gram Powder mouth daily as 2 in Packet needed. tamsulosin (Flomax) 0.4 mg Take 1 capsule 30 tablet 0 12/25/19 2 Active Capsule by mouth daily. [address] 2 drops 30 each 0 Active (Refresh Plus) 0.5 % into both eyes 3 2 Dropperette times daily as needed. albuteroL (Proventil) 2.5 Take 3 mLs by 90 mL 1 Active mg /3 mL (0.083 %) nebulization 2 Solution for Nebulization every 6 hours as needed for Wheezing or Shortness of Breath. acetaminophen (Tylenol) Take 2 tablets 30 tablet 1 Active 325 mg Tablet by mouth every 6 2 hours as needed for Pain. Active Problems Problem Noted Date Catatonia 12/09/2021 Altered mental status 06/23/2021 Obtundation 06/23/2021 Bipolar I disorder, most recent episode (or current) m anic, moderate 08/29/2010 Overview: Worsening depression for 3 months and no t able to care for himself prior to admission. Encounters Date Type Specialty Care Team Description 01/02/2022 Telephone Psychiatry Carrie Catalan RN 01/02/2022 Orders Only Psychiatry Tayo Lindsay MD 01/02/2022 Telephone Psychiatry Lanette Shay 12/22/2021 Telephone Psychiatry Zara Woodard Prior Autho rization ( L Approved 5 days from 12/19-12/23/21 with auth # [id number]. Will need to call [phone] on 12/23/21 to ext end auth./) 12/19/2021 - Hospital Encounter Psychiatry Tayo Lindsay 12/24/2021 MD Moinca 12/08/2021 - Hospital Encounter Aye Cochran ia (Primary Dx); 12/19/2021 MD Dayron Change in behavior; Osmany Olmos, Self-care def icit; Hypophosphatemia Abdulkadir Jolley MD Loukas, Elias E, MD O'Dowd, Timothy R, MD 12/02/2021 Ancillary Procedure Radiology 12/02/2021 Ancillary Procedure Radiology 11/29/2021 Ancillary Procedure Radiology 11/23/2021 Ancillary Procedure Radiology 11/23/2021 Ancillary Procedure Radiology 11/11/2021 Interpretation Only Brad Whalen Jr., DO from Last 3 Months Social History Tobacco [...] Mass Index 23.62 12/19/2021 4:22 PM EDT Plan of Treatment Health Maintenance Due Date Last Done Comments Covid-19 Vaccine (#1) 05/16/1951 Hepatitis C Screening 11/13/1969 Tdap adult 11/13/1970 Tetanus vaccine 11/13/1970 Colonoscopy 11/13/1996 Zoster vaccine (1 of 2) 11/13/2001 Pneumoccocal Vaccine: 65+ (1 - PCV) 11/13/2016 Influenza (Flu) vaccine (1 of 1 - Influenza standard 12/04/2021 series) Lipid Screening 12/19/2026 12/19/2021 Procedures Procedure Name Priority Date/Time Associated Comments Diagnosis HDL/CHOL PROFILE Routine 12/19/2021 5:05 AM Resul ts for this EDT procedure are i n the results section. LDL CHOLESTEROL, Routine 12/19/2021 5:05 AM Resul ts for this DIRECT EDT procedure are i n the results section. DIFFERENTIAL, Routine 12/19/2021 5:05 AM Results for this AUTOMATED EDT procedure are i n the results section. HEMOGRAM Routine 12/19/2021 5:05 AM Results f or this EDT procedure are i n the results section. HC CBC,PLT & AUTO DIFF Routine 12/19/2021 5:05 AM EDT HC VENIPUNCTURE Routine 12/19/2021 5:05 AM Result s for this EDT procedure are i n the results section. DIFFERENTIAL, Routine 12/18/2021 5:23 AM Results for this AUTOMATED EDT procedure are i n the results section. HEMOGRAM Routine 12/18/2021 5:23 AM Results f or this EDT procedure are i n the results section. HC CBC,PLT & AUTO DIFF Routine 12/18/2021 5:23 AM EDT BASIC METABOLIC PANEL Routine 12/18/2021 5:23 AM Results for this (NON-FASTING) EDT procedure are in the results section. HC PHOSPHORUS, SERUM Routine 12/18/2021 5:23 AM R esults for this EDT procedure are i n the results section. HC POTASSIUM Routine 12/17/2021 8:57 AM Results f or this EDT procedure are i n the results section. DIFFERENTIAL, Routine 12/17/2021 4:26 AM Results for this AUTOMATED EDT procedure are i n the results section. HEMOGRAM Routine 12/17/2021 4:26 AM Results f or this EDT procedure are i n the results section. HC CBC,PLT & AUTO DIFF Routine 12/17/2021 4:26 AM EDT BASIC METABOLIC PANEL Routine 12/17/2021 4:26 AM Results for this (NON-FASTING) EDT procedure are in the results section. HC VENIPUNCTURE Routine 12/17/2021 4:26 AM Result s for this EDT procedure are i n the results section. DIFFERENTIAL, Routine 12/16/2021 4:30 AM Results for this AUTOMATED EDT procedure are i n the results section. HEMOGRAM Routine 12/16/2021 4:30 AM Results f or this EDT procedure are i n the results section. HC MAGNESIUM, SERUM Routine 12/16/2021 4:30 AM Re sults for this EDT procedure are i n the results section. HC CBC,PLT & AUTO DIFF Routine 12/16/2021 4:30 AM EDT BASIC METABOLIC PANEL Routine 12/16/2021 4:30 AM Results for this (NON-FASTING) EDT procedure are in the results section. HC VENIPUNCTURE Routine 12/16/2021 4:30 AM Result s for this EDT procedure are i n the results section. DIFFERENTIAL, Routine 12/15/2021 4:22 AM Results for this AUTOMATED EDT procedure are i n the results section. HEMOGRAM Routine 12/15/2021 4:22 AM Results f or this EDT procedure are i n the results section. HC CBC,PLT & AUTO DIFF Routine 12/15/2021 4:22 AM EDT BASIC METABOLIC PANEL Routine 12/15/2021 4:22 AM Results for this (NON-FASTING) EDT procedure are in the results section. HC VENIPUNCTURE Routine 12/15/2021 4:22 AM Result s for this EDT procedure are i n the results section. DIFFERENTIAL, Routine 12/14/2021 4:20 AM Results for this AUTOMATED EDT procedure are i n the results section. HEMOGRAM Routine 12/14/2021 4:20 AM Results f or this EDT procedure are i n the results section. HC CBC,PLT & AUTO DIFF Routine 12/14/2021 4:20 AM EDT BASIC METABOLIC PANEL Routine 12/14/2021 4:20 AM Results for this (NON-FASTING) EDT procedure are in the results section. HC PHOSPHORUS, SERUM Routine 12/14/2021 4:20 AM R esults for this EDT procedure are i n the results section. DIFFERENTIAL, Routine 12/13/2021 2:59 AM Results for this AUTOMATED EDT procedure are i n the results section. HEMOGRAM Routine 12/13/2021 2:59 AM Results f or this EDT procedure are i n the results section. HC CBC,PLT & AUTO DIFF Routine 12/13/2021 2:59 AM EDT BASIC METABOLIC PANEL Routine 12/13/2021 2:59 AM Results for this (NON-FASTING) EDT procedure are in the results section. HC VENIPUNCTURE Routine 12/13/2021 2:59 AM Result s for this EDT procedure are i n the results section. HC OSMOLALITY URINE Routine 12/12/2021 8:55 PM Re sults for this EDT procedure are i n the results section. HC VENIPUNCTURE Routine 12/12/2021 8:26 PM Result s for this EDT procedure are i n the results section. HC OSMOLALITY URINE Routine 12/12/2021 9:26 AM Re sults for this EDT procedure are i n the results section. SPECIFIC GRAVITY, Routine 12/12/2021 9:26 AM Resu lts for this URINE EDT procedure are i n the results section. HC SODIUM, URINE Routine 12/12/2021 9:26 AM Resul ts for this EDT procedure are i n the results section. DIFFERENTIAL, Routine 12/12/2021 4:33 AM Results for this AUTOMATED EDT procedure are i n the results section. HEMOGRAM Routine 12/12/2021 4:33 AM Results f or this EDT procedure are i n the results section. HC CBC,PLT & AUTO DIFF Routine 12/12/2021 4:33 AM EDT BASIC METABOLIC PANEL Routine 12/12/2021 4:33 AM Results for this (NON-FASTING) EDT procedure are in the results section. HC VENIPUNCTURE Routine 12/12/2021 4:33 AM Result s for this EDT procedure are i n the results section. SCAN DOC: TELEMETRY 12/11/2021 10:02 Resu lts for this STRIPS AM EDT procedure are i n the results section. DIFFERENTIAL, Routine 12/11/2021 4:38 AM Results for this AUTOMATED EDT procedure are i n the results section. HEMOGRAM Routine 12/11/2021 4:38 AM Results f or this EDT procedure are i n the results section. HC CBC,PLT & AUTO DIFF Routine 12/11/2021 4:38 AM EDT BASIC METABOLIC PANEL Routine 12/11/2021 4:38 AM Results for this (NON-FASTING) EDT procedure are in the results section. HC VENIPUNCTURE Routine 12/11/2021 4:38 AM Result s for this EDT procedure are i n the results section. SCAN DOC: TELEMETRY 12/11/2021 4:22 AM Re sults for this STRIPS EDT procedure are i n the results section. SCAN DOC: TELEMETRY 12/10/2021 4:22 PM Re sults for this STRIPS EDT procedure are i n the results section. DIFFERENTIAL, Routine 12/10/2021 4:56 AM Results for this AUTOMATED EDT procedure are i n the results section. HEMOGRAM Routine 12/10/2021 4:56 AM Results f or this EDT procedure are i n the results section. HC CBC,PLT & AUTO DIFF Routine 12/10/2021 4:56 AM EDT BASIC METABOLIC PANEL Routine 12/10/2021 4:56 AM Results for this (NON-FASTING) EDT procedure are in the results section. HC VENIPUNCTURE Routine 12/10/2021 4:56 AM Result s for this EDT procedure are i n the results section. XR CHEST ONE VIEW STAT 12/10/2021 4:32 AM Resu lts for this EDT procedure are i n the results section. EKG 12-LEAD STAT 12/10/2021 4:05 AM Change in behavior Res ults for this EDT procedure are i n the results section. DIFFERENTIAL, Routine 12/09/2021 10:54 Results fo r this AUTOMATED AM EDT procedure are i n the results section. HEMOGRAM Routine 12/09/2021 10:54 Results for this AM EDT procedure are i n the results section. HC CBC,PLT & AUTO DIFF Routine 12/09/2021 10:54 AM EDT HC MAGNESIUM, SERUM Routine 12/09/2021 10:54 Resu lts for this AM EDT procedure are i n the results section. HC PHOSPHORUS, SERUM Routine 12/09/2021 10:54 Res ults for this AM EDT procedure are i n the results section. HC VENIPUNCTURE Routine 12/09/2021 10:54 Results for this AM EDT procedure are i n the results section. RAPID DRUG SCREEN W/O STAT 12/09/2021 8:29 AM Results for this CONFIRMATION, URINE EDT procedur e are in the results section. RAPID DRUG SCREEN, STAT 12/09/2021 8:29 AM Res ults for this URINE (ROSE MARY REQUEST) EDT procedur e are in the results section. URINALYSIS WITH REFLEX STAT 12/09/2021 8:29 AM Results for this CULTURE EDT procedure are i n the results section. LYME IGG & IGM STAT 12/08/2021 5:27 PM Results for this ANTIBODY EDT procedure are i n the results section. VITAMIN D, 25-HYDROXY STAT 12/08/2021 5:27 PM Results for this EDT procedure are i n the results section. VITAMIN B12 STAT 12/08/2021 5:27 PM Results f or this EDT procedure are i n the results section. HC THYROID STIMULATING STAT 12/08/2021 5:27 PM Results for this HORMONE, SERUM EDT procedure are in the results section. HC ALCOHOL, BLOOD STAT 12/08/2021 5:27 PM Resu lts for this EDT procedure are i n the results section. EKG 12-LEAD STAT 12/08/2021 5:16 PM Results f or this EDT procedure are i n the results section. ACUTE TICK BORNE STAT 12/08/2021 4:57 PM Resul ts for this INFECTION PANEL EDT procedure ar e in the results section. PHOSPHORUS STAT 12/08/2021 4:57 PM Results f or this EDT procedure are i n the results section. HEPATIC FUNCTION PANEL STAT 12/08/2021 4:57 PM Results for this EDT procedure are i n the results section. SALICYLATE STAT 12/08/2021 4:57 PM Results f or this EDT procedure are i n the results section. ACETAMINOPHEN LEVEL STAT 12/08/2021 4:57 PM Re sults for this EDT procedure are i n the results section. MAGNESIUM STAT 12/08/2021 4:57 PM Results f or this EDT procedure are i n the results section. TROPONIN STAT 12/08/2021 4:57 PM Results f or this EDT procedure are i n the results section. LIPASE STAT 12/08/2021 4:57 PM Results f or this EDT procedure are i n the results section. DIFFERENTIAL, STAT 12/08/2021 4:57 PM Results for this AUTOMATED EDT procedure are i n the results section. HEMOGRAM STAT 12/08/2021 4:57 PM Results f or this EDT procedure are i n the results section. BASIC METABOLIC PANEL STAT 12/08/2021 4:57 PM Results for this (NON-FASTING) EDT procedure are in the results section. HC CBC,PLT & AUTO DIFF STAT 12/08/2021 4:57 PM EDT XR ANKLE MIN 3 VIEWS STAT 12/08/2021 4:25 PM R esults for this RIGHT EDT procedure are i n the results section. FILM LIBRARY STORAGE STAT 12/02/2021 12:05 Res ults for this ONLY CT HEAD AM EDT procedure are i n the results section. FILM LIBRARY STORAGE STAT 12/02/2021 12:00 Res ults for this ONLY DX CHEST AM EDT procedure are in the results section. FILM LIBRARY STORAGE STAT 11/29/2021 12:00 Res ults for this ONLY DX CHEST AM EDT procedure are in the results section. FILM LIBRARY STORAGE STAT 11/23/2021 12:05 Res ults for this ONLY DX CHEST AM EDT procedure are in the results section. FILM LIBRARY STORAGE STAT 11/23/2021 12:00 Res ults for this ONLY CT HEAD AM EDT procedure are i n the results section. CT HEAD WO CONTRAST STAT 11/11/2021 8:29 PM Re sults for this (GENERIC) EDT procedure are i n the results section. from Last 3 Months Results (ABNORMAL) Hemogram (12/19/2021 5:05 AM EDT)Only the most recent of12 results within the time period is included. Analysis Performed At Patho logist Time Signature WBC 10.1 (H) 4.0 - 9.5 [facility] x10(3)/[facility] LABORATORY RBC 4.62 4.58 - [facility] 5.54 [facility] x10(6)/[facility] LABORATORY Hemoglobin 14.1 13.7 - [facility] 16.5 g/dL [facility] Hematocrit 41.5 40.5 - [place] 48.5 % [facility] MCV 89.8 82.9 - [place] 93.1 [facility] LABORATORY MCH 30.5 27.5 - [facility] 32.1 pg [facility] MCHC 34.0 32.0 - [facility] 35.7 g/dL [facility] Platelets 308 145 - 357 [facility] LABORATORY RDWSD 45.1 (H) 36.0 - [place] [facility] 45.0 [facility] LABORATORY RDWCV 13.7 11.4 - [facility] 13.8 % [facility] LAB[facility] MPV 10.6 7.6 - 12.9 [facility] nRBC % Auto 0.0 % [facility] LABORATORY nRBC Abs Auto 0.000 0.000 - [place] [facility] 0.000 [facility] x10(3)/[facility] LABORATORY Specimen Anatomical Collection Method Collection Time Receive d Time (Source) Location / / Volume Laterality Blood 12/19/2021 5:05 AM 5:37 EDT AM EDT Resulting Agency Comment Spec In Lab Abdulkadir Jolley MD HEMATOLOGY ORDERABLES Performing Organization Address City/State/[place] [address] (ABNORMAL) Differential, Automated (12/19/2021 5:05 AM EDT)Only the most recent of12 resultswithin the time period is included. [facility] Method Time Signature Neutrophils % 70.7 % [facility] LABORATORY Neutr Abs (ANC) 7.17 (H) 1.70 - [facility] 6.10 [facility] x10(3)/[facility] LABORATORY Lymphocytes % 15.9 % [facility] LABORATORY Lymphocytes Abs 1.6 0.9 - 3.2 [facility] x10(3)/[facility] LABORATORY Monocytes % 8.9 % [facility] LABORATORY Monocyte Abs 0.9 0.3 - 0.9 [facility] x10(3)/[facility] LABORATORY Eosinophils % 3.3 % [facility] Eosinophils Abs 0.3 0.0 - 0.4 [facility] x10(3)/[facility] LABORATORY Basophils % 0.5 % [facility] LABOR[facility] Basophils Abs 0.0 0.0 - 0.1 [facility] x10(3)/[facility] LABORATORY Immature Gran % 0.70 % [facility] LABORATORY Comment: Immature granulocytes(IG's)percentage an d absolute count will include metamyelocytes, myelocytes, and promyelo cytes. Blood smears from CBCs yielding IG's will be scanned manually for concor dance. If this scan disagrees with the automated IG or if promyelocytes are not ed, a manual differential will be performed. Nasreen Gran Abs 0.07 (H) 0.00 - 0.04 x10(3)/[facility] LABORATORY Specimen Anatomical Collection Method Collection Time Receive d Time (Source) Location / / Volume Laterality Blood 12/19/2021 5:05 AM 5:37 EDT AM EDT Resulting Agency Comment Spec In Lab Abdulkadir Jolley MD HEMATOLOGY ORDERABLES Performing Organization Address City/State/ZIP Code Phon e Number [address] LDL Cholesterol, Direct (12/19/2021 5:05 AM EDT) athologist Signature LDL Chol 110 mg/dL [facility] LABORATORY Comment: Lowest Risk: <100 mg/dL Lower Risk: 100-129 mg/dL Borderline High Risk: 130-159 mg/dL High Risk: 160-189 mg/dL Very High Risk: >nt=447 mg/dL Specimen Anatomical Collection Method Collection Time Receive d Time (Source) Location / / Volume Laterality Blood Venous Draw / 12/19/2021 5:05 AM 12/20/19 5:41 Unknown EDT AM EDT Resulting Agency Comment Spec In Lab Devora Alcala MD CHEMISTRY ORDERABLES Performing Organization Address [facility]/ZIP Code Phon e Number [address] HDL/Cholesterol Profile (12/19/2021 5:05 AM EDT) athologist Signature Chol, Total 194 mg/dL [facility] LABORATORY Comment: Lower Risk: <200 mg/dL Average Risk: 200-239 mg/dL Higher Risk: >rj=242 mg/dL HDL 35 mg/dL [facility] LABORATORY Comment: Males: ?? Higher Risk: <40 mg/dL Females: ?? Higher Risk: <50 mg/dL Chol/HDL Ratio 5.5 ratio [facility] LAB[facility] Chol/HDL Interpretation See Note [facility] LABORATORY Comment: Lipid management should be guided by a p atient? s ASCVD risk, goals and preferences. ACC/AHA Guidelines recommend high intens ity statin if clinical ASCVD or LDL greater than or equal to 190 mg/dL. http://tinyurl.com/OZW-TLN-Iahdcncqu Measure LDL if Total Cholesterol minus H DL Cholesterol is greater than 220 mg/dL. Adults aged 40-75 with LDL 70-189 mg/dL should have their 10 year ASCVD risk estimated with the ACC/AHA ASCVD risk es timator http://tools.acc.org/INZNY-Qbed-Xubwliaf r/ Statin should be discussed if risk great er than or equal to 7.5% in non-diabetics. With diabetes, moderate i ntensity statin is recommended if risk less than 7.5%, high intensity if risk g reater than or equal to 7.5%. Annual lipid monitoring on statins is no t necessary. Lifestyle modification is a critical com ponent of ASCVD risk reduction. Specimen Anatomical Collection Method Collection Time Receive d Time (Source) Location / / Volume Laterality Blood Venous Draw / 12/19/2021 5:05 AM 12/20/19 22 5:41 Unknown EDT AM EDT Resulting Agency Comment Spec In Lab Devora Alcala MD CHEMISTRY ORDERABLES Performing Organization Address City/State/ZIP Code Phon e Number [place] [phone] Basic Metabolic Panel (non-fasting) (12/19/2021 5:05 AM EDT)Only the most recent of13 resultswithin the time period is included. athologist Signature Glucose Lvl 106 65 - 199 [facility] mg/dL [facility] LAB[facility] Comment: Diabetes: >=200 mg/dL plus symp toms BUN 12 10 - 20 mg/dL [facility] LABORATORY Creatinine 1.21 0.80 - 1.50 mg/dL [facility] LABORATORY Sodium 140 135 - 145 mmol/L [facility] LABORATORY Potassium 3.8 3.5 - 5.0 mmol/L [facility] LABORATORY Comment: Please note: ??Patients with WBC >100,00 0 may have falsely elevated Potassium levels. ??For accurate Potassium quantif ication in these patients send serum separator tube (gold top) for subsequent determinations. ??Contact the Clinical Chemistry Laboratory if there are any qu estions. Chloride 107 98 - 107 mmol/L [facility] LABORAT[facility] CO2 22 22 - 31 mmol/L [facility] Anion Gap 11 5 - 15 mmol/L [facility] LABOR[facility]ORY Calcium 9.1 8.5 - 10.5 mg/dL [facility] Estimated GFR 64 >=60 mL/min/1.73 m?? [facility] Comment: This patient's estimated GFR was calcula han using the 2020 CKD-EPI equation. The estimated GFR can vary from the meño ured GFR by up to 30% in the absence of rapidly changing kidney function. Assess ment of the estimated GFR is not appropriate when creatinine concentratio ns are rapidly changing. For clinical situations in which a more precise estim ate of GFR is necessary, consider alternative methods of GFR estimation ferro ch as a 24-hour urine creatinine clearance. Assignment of CKD stage 1-5 for patients with an eGFR near the transition point between stages may be based on clinical assessment of muscle mass and symptoms in addition to eGFR. Specimen Anatomical Collection Method Collection Time Receive d Time (Source) Location / / Volume Laterality Blood 12/19/2021 5:05 AM 2 5:37 EDT AM EDT Resulting Agency Comment Spec In Lab Abdulkadir Jolley MD CHEMISTRY ORDERABLES Performing Organization Address City/[facility]/ZIP [facility] Phon e Number [address] (ABNORMAL) Phosphorus (12/18/2021 5:23 AM EDT)Only the most recent of11 results within the time period is included. P athologist Signature Phosphorus 2.4 (L) 2.5 - 4.5 [facility] mg[facility] Specimen Anatomical Collection Method Collection Time Receive d Time (Source) Location / / Volume Laterality Blood 12/18/2021 5:23 AM 2 5:43 EDT AM EDT Resulting Agency Comment Spec In Lab Abdulkadir Jolley MD CHEMISTRY ORDERABLES Performing Organization Address City/[facility] Phon e Number [address] Potassium (12/17/2021 8:57 AM EDT) P athologist Signature Potassium 4.1 3.5 - 5.0 [facility] mmol/L [facility] Comment: Please note: ??Patients with WBC >100,00 0 may have falsely elevated Potassium levels. ??For accurate Potassium quantif ication in these patients send serum separator tube (gold top) for subsequent determinations. ??Contact the Clinical Chemistry Laboratory if there are any qu estions. Specimen Anatomical Collection Method Collection Time Receive d Time (Source) Location / / Volume Laterality Blood 12/17/2021 8:57 AM 2 9:03 EDT AM EDT Resulting Agency Comment Spec In Lab Joseph Almaraz MD CHEMISTRY ORDERABLES Performing Organization Address City/[facility]/ZIP Code Phon e Number [address] Magnesium (12/16/2021 4:30 AM EDT)Only the most recent of3 resultswithin the time period is included. athologist Signature Magnesium 0.71 0.69 - 1.07 [facility] mmol/L [facility] Specimen Anatomical Collection Method Collection Time Receive d Time (Source) Location / / Volume Laterality Blood 12/16/2021 4:30 AM 2 4:51 EDT AM EDT Resulting Agency Comment Spec In Lab Joseph Almaraz MD CHEMISTRY ORDERABLES Performing Organization Address City/[facility]/ZIP Code Phon e Number [address] Osmolality, urine, random (12/12/2021 8:55 PM EDT)Only the most recent of2 resultswithin the time period is included. athologist Signature U Osmolality 106 50 - 1,200 [facility] mOsm/kg [facility] Specimen Anatomical Collection Method Collection Time Receive d Time (Source) Location / / Volume Laterality Urine 12/12/2021 8:55 PM 2 9:03 EDT PM EDT Resulting Agency Comment Spec In Lab Abdulkadir Jolley MD URINE ORDERABLES Performing Organization Address City/[facility]/ZIP [facility] Phon e Number [address] (ABNORMAL) Specific [place], Urine (12/12/2021 9:26 AM EDT) Patholo gist Method Time Signature Spec [place] 1.004 (L) 1.005 - [facility] UA 1.030 [facility] Specimen Anatomical Collection Method Collection Time Receive d Time (Source) Location / / Volume Laterality Urine 12/12/2021 9:26 AM 09/09/202 2 9:37 EDT AM EDT Resulting Agency Comment Spec In Lab Abdulkadir Jolley MD URINE ORDERABLES Performing Organization Address City/State/ZIP Code Phon e Number [address] Electrolytes, urine, random (12/12/2021 9:26 AM EDT) P athologist Signature U Sodium 70 mmol/L [facility] U Potassium 6 mmol/L [facility] U Chloride 60 mmol/L [facility] Specimen Anatomical Collection Method Collection Time Receive d Time (Source) Location / / Volume Laterality Urine 12/12/2021 9:26 AM 9:37 EDT AM EDT Resulting Agency Comment Spec In Lab Abdulkadir Jolley MD URINE ORDERABLES Performing Organization Address City/[facility]/ZIP Code Phon e Number [address] SCAN DOC: TELEMETRY STRIPS (12/11/2021 10:02 AM EDT)Only the most recent of3 resultswithin the time period is included. Narrative 12/11/2021 10:02 AM EDT This result has an attachment that is no t available. Ordered by an unspecified provider. Scanning Provider MEDIA MGR SCAN EXT ORDR/RSLT XR Chest One View (12/10/2021 4:32 AM EDT) Anatomical Region Laterality Modality Chest N/A Digital Radiography Specimen (Source) Anatomical Location Collection Method / Collectio n Time Received Time / Laterality Volume Impressions 12/10/2021 4:59 AM EDT No acute cardiopulmonary findings. Preliminary report signed by: Kailash Hall ran at 12/10/2021 4:43 AM I have personally reviewed the image(s) and the resident's interpretation and agree with the findings, Katharine Ferreira MD at 12/10/2021 4:59 AM Thank you for letting us participate in the care of this patient. ??If you are a health care provider and have any questi ons regarding this report, please contact the number below. ??For patients who have questions please contact the health manager progressive care that requested your imaging first. ? Narrative 12/10/2021 4:59 AM EDT EXAMINATION: XR CHEST ONE VIEW CLINICAL HISTORY: SOB, desat r/o aspiration TECHNIQUE: 1 view of the chest AP supine, one image COMPARISON: Chest radiograph 12/02/2021 FINDINGS: Patient's rotation confounds evaluation. Chronic elevation of right hemidiaphragm. No consolidation, pleural effusion or pneumothorax. Unchanged cardiomediastinal silhouette and osseous structures. Unremarkable upper abdomen. Procedure Note Carmela Ferreira MD - 12/10/2021Formattin g of this note might be different from the original. EXAMINATION: XR CHEST ONE VIEW CLINICAL HISTORY: SOB, desat r/o aspiration TECHNIQUE: 1 view of the chest AP supine, one image COMPARISON: Chest radiograph 12/02/2021 FINDINGS: Patient's rotation confounds evaluation. Chronic elevation of right hemidiaphragm. No consolidation, pleural effusion or pneumothorax. Unchanged cardiomediastinal silhouette and osseous structures. Unremarkable upper abdomen. IMPRESSION No acute cardiopulmonary findings. Preliminary report signed by: Kailash breen at 12/10/2021 4:43 AM I have personally reviewed the image(s) and the resident's interpretation and agree with the findings, Katharine Ferreira MD at 12/10/2021 4:59 AM Thank you for letting us participate in the care of this patient. If you are a health care provider and have any questi ons regarding this report, please contact the number below. For patients w ho have questions please contact the health manager progressive care that requested your imaging first. Colby Mercedes MD IMG DX ORDERABLES EKG 12 Lead (12/10/2021 4:05 AM EDT)Only the most recent of2 resultswithin the time period is included. Component Value Ref Range Test Analysis Performed Pathologis t Method Time At Signature Ventricular rate 64 BPM MUSE SYSTEM Atrial Rate 64 BPM MUSE SYSTEM P-R Interval 240 ms MUSE SYSTEM QRS Duration 176 ms MUSE SYSTEM Q-T Interval 472 ms MUSE SYSTEM QTC Calculated 486 ms MUSE SYSTEM (Bezet) Calculated P [place] 66 degrees MUSE SYSTEM Calculated R [place] -28 degrees MUSE SYSTEM Calculated T [place] 167 degrees MUSE SYSTEM INTERPRETATION Sinus rhythm with 1st degree A-V block MUSE SYSTEM Left bundle branch block Abnormal ECG When compared with ECG of 08-DEC-2021 17:16, [place] interval has increased T wave inversion now evident in Inferior leads T wave inversion more evident in Lateral leads I personally reviewed the tracing and edited the fellows int erpretation Confirmed by fellow MD Daily Andrew ([id number]) on 2 1:40:27 PM Confirmed by Marge Torres ([id number]) on 12/10/2021 1:53:13 PM Specimen Anatomical Collection Method Collection Time Receive d Time (Source) Location / / Volume Laterality 12/10/2021 4:05 AM 2 1:53 EDT PM EDT Colby Mercedes MD ECG ORDERABLES Performing Organization Address City/State/ZIP Code Phon e Number MUSE SYSTEM Rapid Drug Screen, Urine (ROSE MARY Request) (12/09/2021 8:29 AM EDT) [facility] gist Method Time Signature ROSE MARY Conf No [facility] LABORATORY ROSE MARY Requested See Comment [facility] Comment: Refer to Rapid Drug Screen w/o Confirmation, Urine for results. Specimen Anatomical Collection Method Collection Time Receive d Time (Source) Location / / Volume Laterality Urine 12/09/2021 8:29 AM 2 8:39 EDT AM EDT Resulting Agency Comment Spec In Lab Adrian Baron APRN URINE ORDERABLES Performing Organization Address City/State/ZIP Code Phon e Number [place] [phone] (ABNORMAL) Rapid Drug Screen w/o Confirmation, Urine (12/09/2021 8:29 AM EDT) [facility] Method Time Signature U Barbiturates None None [facility] Screen Detected [facility] LABORATORY Comment: The barbiturate screen detects barbitura jam at concentrations >200 ng/mL. Note: Not all barbiturates cross-react equally with antibody used in this screen. A ? Presumptive Positive? result indicates that the screening result was positive but has not yet been confirmed by a highly-specific method. As with any screen, occasional false positive re sults from cross-reacting substances may occur. Not for Medico-Legal Purposes. U Benzodiazepines Screen Presumptive Pos (A) None Detected [facility] Comment: The benzodiazepines screen detects benzo diazepines at concentrations >100 ng/mL. Not all benzodiazepines cross-bonnie ct equally with antibody used in this screen. Due to the low dosage of clonaze wendy, false negatives may be obtained due to low concentration of clonazepam m etabolites. A ? Presumptive Positive? result indicates that the screening result was positive but has not yet been confirmed by a highly-specific method. As with any screen, occasional false positive re sults from cross-reacting substances may occur. Not for Medico-Legal Purposes. U Cocaine Screen None Detected None Detected [facility] Comment: The cocaine metabolites screen detects b enzoylecgonine (Cocaine Metabolite) at concentrations >150 ng/mL. A ? Presumptive Positive? result indicates that the screening result was positive but has not yet been confirmed by a highly-specific method. As with any screen, occasional false positive re sults from cross-reacting substances may occur. Not for Medico-Legal Purposes. U Methadone Metabolites None Detected None Detected [facility] LABORATORY Comment: The methadone metabolite screen detects EDDP (major methadone metabolite) at concentrations >100 ng/mL. A ? Presumptive Positive? result indicates that the screening result was positive but has not yet been confirmed by a highly-specific method. As with any screen, occasional false positive re sults from cross-reacting substances may occur. Not for Medico-Legal Purposes. U Opiate Screen None Detected None Detected [facility]ORY Comment: The opiates screen detects opiates at co ncentrations >300 ng/mL. Please note that oxycodone, oxymorphone, fentanyl, tramadol, and other synthetic opioids are not detected by e opiate screen. A ? Presumptive Positive? result indicates that the screening result was positive but has not yet been confirmed by a highly-specific method. As with any screen, occasional false positive re sults from cross-reacting substances may occur. Not for Medico-Legal Purposes. U Cannabinoid Screen None Detected None Detected [facility] Comment: The marijuana metabolites screen detects the THC metabolite (21-oll-6-carboxy-delta 9-THC) at concen trations >20 ng/mL. A ? Presumptive Positive? result indicates that the screening result was positive but has not yet been confirmed by a highly-specific method. As with any screen, occasional false positive re sults from cross-reacting substances may occur. Not for Medico-Legal Purposes. U Oxycodone Screen None Detected None Detected [facility] Comment: The oxycodone screen detects oxycodone a nd oxymorphone at concentrations >100 ng/mL. A ? Presumptive Positive? result indicates that the screening result was positive but has not yet been confirmed by a highly-specific method. As with any screen, occasional false positive re sults from cross-reacting substances may occur. Not for Medico-Legal Purposes. U Buprenorphine Screen None Detected None Detected [facility] Comment: The buprenorphine screen detects bupreno rphine at concentrations >5 ng/mL. A ? Presumptive Positive? result indicates that the screening result was positive but has not yet been confirmed by a highly-specific method. As with any screen, occasional false positive re sults from cross-reacting substances may occur. Not for Medico-Legal Purposes. U Fentanyl Screen None Detected None Detected [facility] Comment: The fentanyl screen detects fentanyl at concentrations >2 ng/mL. A ? Presumptive Positive? result indicates that the screening result was positive but has not yet been confirmed by a highly-specific method. As with any screen, occasional false positive re sults from cross-reacting substances may occur. Not for Medico-Legal Purposes. U Tricyclics Screen None Detected None Detected [facility] Comment: The tricyclics screen detects tricyclic antidepressants at concentrations >150 ng/mL. Not all tricyclics cross-react eq ually with the antibody used in this screen. A ? Presumptive Positive? result indicates that the screening result was positive but has not yet been confirmed by a highly-specific method. As with any screen, occasional false positive re sults from cross-reacting substances may occur. Not for Medico-Legal Purposes. U Ethanol Screen None Detected None Detected [facility] Comment: This urine ethanol assay detect s ethanol at concentrations >/= 100 mg/L. U Amphetamines Screen None Detected None Detected [facility] Comment: The amphetamine screen detects d-ampheta mine and d-methamphetamine at concentrations >300 ng/mL. A ? Presumptive Positive? result indicates that the screening result was positive but has not yet been confirmed by a highly-specific method. As with any screen, occasional false positive re sults from cross-reacting substances may occur. Not for Medico-Legal Purposes. U Adulterants Screen None Detected None Detected Dayron [facility] Comment: No adulteration or dilution of this urin e sample was detected. All urine samples submitted for urine drugs of abu se analysis are tested for creatinine concentration, pH, and for the presence of oxidants, nitrites, and chromate. Specimen Anatomical Collection Method Collection Time Receive d Time (Source) Location / / Volume Laterality Urine 12/09/2021 8:29 AM 8:39 EDT AM EDT Resulting Agency Comment Spec In Lab Adrian Bacaicoa PRINCIPAL DEVELOPER CHEMISTRY ORDERABLES Performing Organization Address City/State/[place] [address] Urinalysis with reflex Culture (12/09/2021 8:29 AM EDT) [facility] Method Time Signature Glucose UA Negative Negative [facility] Protein UA Negative Negative [facility] mg/dL [facility] Bilirubin UA Negative Negative [facility] mg/dL [facility] Comment: Clinical correlation required for positi ve Urine Bilirubin results as false positive may occur with some drugs and d rug related products. If a false positive is suspected a serum total bili buchanan should be considered if clinically indicated. Urobilinogen UA Normal Normal mg/dL [facility] pH UA 6.5 5.0 - 8.0 [facility] Blood UA Negative Negative mg/dL [facility] Ketones UA Negative Negative mg/dL [facility] Nitrite UA Negative Negative [facility] Leukocytes UA Negative Negative [facility] LABORATORY Appearance UA Clear Clear [facility] Spec [place] UA 1.006 1.005 - 1.030 [facility] Color UA Yellow Yellow [facility] Culture Reflexed No [facility] Specimen Anatomical Collection Method Collection Time Receive d Time (Source) Location / / Volume Laterality Straight 12/09/2021 8:29 AM 8:39 Catheter Urine EDT AM EDT Resulting Agency Comment Spec In Lab Zelalem Flores MD URINE ORDERABLES Performing Organization Address City/[facility]/ZIP Code Phon e Number [address] TSH Harper (12/08/2021 5:27 PM EDT) athologist Signature TSH 1.51 0.27 - 4.20 [facility] mcIU/mL [facility] Comment: Reference Interval (mcIU/mL): Females: ??First Trimester: 0.23-3.88 ??Second Trimester: 0.22-3.90 ??Third Trimester: 0.44-4.66 Specimen Anatomical Collection Method Collection Time Receive d Time (Source) Location / / Volume Laterality Blood 12/08/2021 5:27 PM 2 5:33 EDT PM EDT Resulting Agency Comment Spec In Lab Adrian Baron APRN CHEMISTRY ORDERABLES Performing Organization Address City/[facility]/ZIP Code Phon e Number [address] Lyme IgG & IgM Antibody (12/08/2021 5:27 PM EDT) athologist Signature Lyme Screening Neg Neg [facility] LABORATORY Specimen Anatomical Collection Method Collection Time Receive d Time (Source) Location / / Volume Laterality Blood Venous Draw / 12/08/2021 5:27 PM 12/10/19 22 7:48 Unknown EDT AM EDT Resulting Agency Comment Spec In Lab Aye Cochran MD IMMUNOLOGY ORDERABLES Performing Organization Address City/[facility]/ZIP Code Phon e Number [address] Vitamin D, 25-Hydroxy (12/08/2021 5:27 PM EDT) [facility] gist Method Time Signature 25-OH Vit D 40 21 - 100 [facility] Total ng/mL [facility] 25-OH Vit D Sufficient [facility] LABORATORY Specimen Anatomical Collection Method Collection Time Receive d Time (Source) Location / / Volume Laterality Blood Venous Draw / 12/08/2021 5:27 PM 12/09/19 22 5:43 Unknown EDT PM EDT Resulting Agency Comment Spec In Lab Adrian Bacaicoa PRINCIPAL DEVELOPER CHEMISTRY ORDERABLES Performing Organization Address City/[facility]/ZIP [place] [address] Vitamin B12 (12/08/2021 5:27 PM EDT) athologist Signature Vitamin B-12 933 232 - 1,245 [facility] pg/mL [facility] Specimen Anatomical Collection Method Collection Time Receive d Time (Source) Location / / Volume Laterality Blood Venous Draw / 12/08/2021 5:27 PM 12/09/19 22 5:43 Unknown EDT PM EDT Resulting Agency Comment Spec In Lab Adrian Bacaicoa X, PRINCIPAL DEVELOPER CHEMISTRY ORDERABLES Performing Organization Address City/[facility]/ZIP Code [place] [address] Ethanol Level (12/08/2021 5:27 PM EDT) athologist Signature Ethanol Lvl <100 <=99 mg/L [facility] Comment: Greater than 800 mg/L (0.08%) should be considered intoxicated. 3400 to 4500 mg/L (0.34 - 0.45%) is cons idered severe intoxication. Greater than 5500 mg/L (0.55%) is usuall y fatal. Specimen Anatomical Collection Method Collection Time Receive d Time (Source) Location / / Volume Laterality Blood 12/08/2021 5:27 PM 5:33 EDT PM EDT Resulting Agency Comment Spec In Lab Adrian Bacaicoa PRINCIPAL DEVELOPER CHEMISTRY ORDERABLES Performing Organization Address City/State/[place] [address] Acute Tick Borne Infection Panel (12/08/2021 4:57 PM EDT) [facility] Method Time Signature Anaplasma Not Not CARRIE phagocytophilum Detected Detected [facility] Comment: INTERPRETATION: A positive result indica jam DNA was detected from Anaplasma phagocytophilum. A negative result indic ates the absence of any detectable DNA from Anaplasma phagocytophilum. METHODS: This test was performed using Giga[employer] real-time PCR to interrogate DNA isolated from whole blood for the gr oEL gene found in Anaplasma phagocytophilum. The sensitivity of the assay is approximately 10 genome equivalents per PCR reaction. LIMITATIONS AND DISCLAIMERS: Although un likely, rare variants (known or unknown), have the potential to interfer e with the performance of this test, producing false negative or false positi ve results. Additionally, it is possible that this test may provide posi tive results for species closely related to the ones tested for in this a ssay. When results are not consistent with other clinical observations or test results, additional testing should be considered. This test detects DNA sequen kymberly and cannot discriminate between live and organisms. This test was developed and its performa nce characteristics determined by the [facility] ([facility]) Laboratory at [facility]. It has not been cleared or approved by the FDA. The laboratory is regulated under CLIA as qualified to perform high-complexity jam ting. This test is used for clinical purposes. It should not be regarded as i nvestigational or for research. Ehrlichia chaffeensis PCR Not Detected Not Detected [facility] Comment: INTERPRETATION: A positive result indica jam DNA was detected from Ehrlichia chaffeensis. A negative result indicates the absence of any detectable DNA from Ehrlichia chaffeensis. METHODS: This test was performed using m ultiplex real-time PCR to interrogate DNA isolated from whole blood for the 16 S rRNA gene found in Ehrlichia chaffeensis. The sensitivity of the assa y is approximately 10 genome equivalents per PCR reaction. LIMITATIONS AND DISCLAIMERS: Although un likely, rare variants (known or unknown), have the potential to interfer e with the performance of this test, producing false negative or false positi ve results. Additionally, it is possible that this test may provide posi tive results for species closely related to the ones tested for in this a ssay. When results are not consistent with other clinical observations or test results, additional testing should be considered. This test detects DNA sequen kymberly and cannot discriminate between live and organisms. This test was developed and its performa nce characteristics determined by the [employer] [facility] [employer] Laboratory at [facility]. It has not been cleared or approved by the FDA. The laboratory is regulated under CLIA as qualified to perform high-complexity jam ting. This test is used for clinical purposes. It should not be regarded as i nvestigational or for research. Babesia microti PCR Not Detected Not Detected [facility] Comment: INTERPRETATION: A positive result indica jam DNA was detected from Babesia microti. A negative result indicates the absence of any detectable DNA from Babesia microti. METHODS: This test was performed using m ultiplex real-time PCR to interrogate DNA isolated from whole blood for the 18 S rRNA gene found in Babesia microti. The sensitivity of the assay is approxim ately 10 genome equivalents per PCR reaction. LIMITATIONS AND DISCLAIMERS: Although un likely, rare variants (known or unknown), have the potential to interfer e with the performance of this test, producing false negative or false positi ve results. Additionally, it is possible that this test may provide posi tive results for species closely related to the ones tested for in this a ssay. When results are not consistent with other clinical observations or test results, additional testing should be considered. This test detects DNA sequen kymberly and cannot discriminate between live and organisms. This test was developed and its performa nce characteristics determined by the [employer] [facility] ([facility] Laboratory at [facility]. It has not been cleared or approved by the FDA. The laboratory is regulated under CLIA as qualified to perform high-complexity jam ting. This test is used for clinical purposes. It should not be regarded as i nvestigational or for research. Borrelia miyamotoi PCR Not Detected Not Detected Dayron [facility] Comment: INTERPRETATION: A positive result indica jam DNA was detected from Borrelia miyamotoi. A negative result indicates t he absence of any detectable DNA from Borrelia miyamotoi. METHODS: This test was performed using m [employer] real-time PCR to interrogate DNA isolated from whole blood for the fl aB gene found in Borrelia miyamotoi. The sensitivity of the assay is approxim ately 10 genome equivalents per PCR reaction. LIMITATIONS AND DISCLAIMERS: Although un likely, rare variants (known or unknown), have the potential to interfer e with the performance of this test, producing false negative or false positi ve results. Additionally, it is possible that this test may provide posi tive results for species closely related to the ones tested for in this a ssay. When results are not consistent with other clinical observations or test results, additional testing should be considered. This test detects DNA sequen kymberly and cannot discriminate between live and organisms. This test was developed and its performa nce characteristics determined by the [facility] y (CGAT) Laboratory at [facility]. It has not been cleared or approved by the FDA. The laboratory is regulated under CLIA as qualified to perform high-complexity jam ting. This test is used for clinical purposes. It should not be regarded as i nvestigational or for research. Specimen Anatomical Collection Method Collection Time Receive d Time (Source) Location / / Volume Laterality Blood Venous Draw / 12/08/2021 4:57 PM 12/10/19 22 7:41 Unknown EDT AM EDT Resulting Agency Comment Spec In Lab Aye Cochran MD HEMATOLOGY ORDERABLES Performing Organization Address City/State/[place] [address] Troponin (12/08/2021 4:57 PM EDT) athologist Signature Troponin-T <0.01 0.00 - 0.00 [facility] ng/mL [facility] Comment: The 99th percentile for Troponin T is le ss than 0.01 ng/mL, any detectable cTnT concentration using this assay should be considered elevated. According to the third universal definit ion of myocardial infarction the following criteria with a clinical prese ntation consistent with acute myocardial ischemia meets the diagnosis for a myocardial infarction (SD). Detection of a rise and/or fall of cTnT, with at least one value greater than the 99th percentile (> or = 0.01) and wi th at least one of the following ?? Symptoms of ischemia ?? New or presumed new significant ST-se gment-T wave (ST-T) changes or new left bundle branch block (LBBB) ?? Development of pathologic Q waves in the ECG ?? Imaging evidence of new loss of viabl e myocardium or new regional wall motion abnormality ?? Identification of an intracoronary th rombus by angiography or autopsy Samples for cTnT testing should be obtai jarod serially upon first assessment and again 3 to 6 hours later. If the clinica l suspicion is high and previous samples have been negative an additional sample may be indicated. Reference: Third Cornelius Definition of Myocardial Infarction. Journal of the [place] [employer] 2012;60:1581-98 Specimen Anatomical Collection Method Collection Time Receive d Time (Source) Location / / Volume Laterality Blood Venous Draw / 12/08/2021 4:57 PM 12/09/19 22 5:06 Unknown EDT PM EDT Resulting Agency Comment Spec In Lab Adrian Bacaicoa X, PRINCIPAL DEVELOPER CHEMISTRY ORDERABLES Performing Organization Address City/[facility] [place] [address] Lipase (12/08/2021 4:57 PM EDT) P athologist Signature Lipase 47 0 - 60 [facility] unit/L [facility] Specimen Anatomical Collection Method Collection Time Receive d Time (Source) Location / / Volume Laterality Blood Venous Draw / 12/08/2021 4:57 PM 12/09/19 22 5:06 Unknown EDT PM EDT Resulting Agency Comment Spec In Lab Adrian Bacaicoa X, PRINCIPAL DEVELOPER CHEMISTRY ORDERABLES Performing Organization Address City/[facility]/ZIP [place] [address] (ABNORMAL) Acetaminophen level (12/08/2021 4:57 PM EDT) athologist Signature Acetamin Lvl <5 (L) 10 - 30 [facility]L [facility] Comment: Levels >150 mg/L at 4 hours post ingesti on or >75 mg/L at 8 hours post ingestion are often an indication for N- Acetylcysteine. Specimen Anatomical Collection Method Collection Time Receive d Time (Source) Location / / Volume Laterality Blood Venous Draw / 12/08/2021 4:57 PM 12/09/19 22 5:06 Unknown EDT PM EDT Resulting Agency Comment Spec In Lab Adrian Bacaicoa X, PRINCIPAL DEVELOPER CHEMISTRY ORDERABLES Performing Organization Address [facility] Phon e Number [address] Salicylate (12/08/2021 4:57 PM EDT) athologist Signature Salicylate Lvl 4 mg/L [facility] Comment: Therapeutic Range: ??< 200 mg/L Arthritic Therapy: ??150-300 mg/L Toxic: ?> 350 mg/L ??Concentrations > 500 mg/L may be an i ndication for alkalinization of urine. Concentrations > 800 mg/L are often an i ndication for hemodialysis. Specimen Anatomical Collection Method Collection Time Receive d Time (Source) Location / / Volume Laterality Blood Venous Draw / 12/08/2021 4:57 PM 12/09/19 22 5:06 Unknown EDT PM EDT Resulting Agency Comment Spec In Lab Adrian Bacaicoa X, PRINCIPAL DEVELOPER CHEMISTRY ORDERABLES Performing Organization Address [facility] Phon e Number [address] Hepatic Function Panel (12/08/2021 4:57 PM EDT) athologist Signature Total Protein 6.8 6.1 - 8.0 [facility] g/dL [facility] Albumin 3.9 3.2 - 5.2 [facility] g/dL [facility] AST 23 0 - 39 [facility] unit/L [facility] ALT 25 0 - 55 [facility] unit/L [facility] Alk Phos 94 40 - 130 [facility] unit/L [facility] Total 0.2 0.2 - 1.3 [facility] Bilirubin mg/dL [facility] Bili, Direct 0.1 0.0 - 0.3 [facility] mg/dL [facility] Specimen Anatomical Collection Method Collection Time Receive d Time (Source) Location / / Volume Laterality Blood Venous Draw / 12/08/2021 4:57 PM 12/09/19 22 5:06 Unknown EDT PM EDT Resulting Agency Comment Spec In Lab Adrian Bacaicoa X, PRINCIPAL DEVELOPER CHEMISTRY ORDERABLES Performing Organization Address City/State/[place] [address] XR Ankle Min 3 views Right (Generic) (12/08/2021 4:25 PM EDT) Anatomical Region Laterality Modality Ankle Right Digital Radiography Specimen (Source) Anatomical Location Collection Method / Collectio n Time Received Time / Laterality Volume Impressions 12/08/2021 5:05 PM EDT No acute fracture or malalignment of the RIGHT ankle. I have personally reviewed the image(s) and the resident's interpretation and agree with the findings, Aye Serra MD at 12/08/2021 5:05 PM Thank you for letting us participate in the care of this patient. ??If you are a health care provider and have any questi ons regarding this report, please contact the number below. ??For patients who have questions please contact the health manager progressive care that requested your imaging first. ? Narrative 12/08/2021 5:05 PM EDT EXAMINATION: XR ANKLE MIN 3 VIEWS RIGHT (GENERIC) CLINICAL HISTORY: right ankle pain TECHNIQUE: 3 views RIGHT ankle COMPARISON: None FINDINGS: No acute fracture or malalignment. No os seous fragments or bony step-off. Calcaneal enthesophyte. Talar dome is in tact. Congruent tibiotalar joint space with ad equate tibiofibular overlap on all projections. No soft tissue edema or gas. No soft tis tyson calcification. Procedure Note Aye Serra MD - 12/08/2021 EXAMINATION: XR ANKLE MIN 3 VIEWS RIGHT (GENERIC) CLINICAL HISTORY: right ankle pain TECHNIQUE: 3 views RIGHT ankle COMPARISON: None FINDINGS: No acute fracture or malalignment. No os seous fragments or bony step-off. Calcaneal enthesophyte. Talar dome is in tact. Congruent tibiotalar joint space with ad equate tibiofibular overlap on all projections. No soft tissue edema or gas. No soft tis tyson calcification. IMPRESSION No acute fracture or malalignment of the RIGHT ankle. I have personally reviewed the image(s) and the resident's interpretation and agree with the findings, Aye Serra MD at 12/08/2021 5:05 PM Thank you for letting us participate in the care of this patient. If you are a health care provider and have any questi ons regarding this report, please contact the number below. For patients w ho have questions please contact the health manager progressive care that requested your imaging first. Zelalem Flores MD IMG DX ORDERABLES Film Library- Storage Only CT Head (12/02/2021 12:05 AM EDT)Only the most recent of2 resultswithin the time period is included. Specimen (Source) Anatomical Location Collection Method / Collectio n Time Received Time / Laterality Volume Narrative Dicom, Auditing User - 12/08/2021 8:33 P M EDT This exam is auto-finalizing. It's purpo se is for storage only. Misael Kumari MD [facility] FILM LIBRARY ORDERABLES Film Library- Storage Only DX Chest (12/02/2021 12:00 AM EDT)Only the most recent of3 resultswithin the time period is included. Specimen (Source) Anatomical Location Collection Method / Collectio n Time Received Time / Laterality Volume Narrative Dicom, Auditing User - 12/08/2021 8:29 P M EDT This exam is auto-finalizing. It's purpo se is for storage only. Misael Kumari MD [facility] FILM LIBRARY ORDERABLES CT Head wo Contrast (Generic) (11/11/2021 8:29 PM EDT) athologist Signature PT CLASS E RAD ADMITDTTM RAD PT RAD MD INFO [id number] RAD ROWN^BRAD^ A EXAM DESC CTHEAD^CT RAD [...] have questions please contact the health manager progressive care that requested your imaging first. ? [...] cerebellar volume loss. No loss of the flores-white matter interfaces. The ca lvarium is unremarkable. [...] cerebellar volume loss. No loss of the flores-white matter interfaces. The ca lvarium is unremarkable. [...] have questions please contact the health manager progressive care that requested your imaging first. 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 PRE Arrest Intubation Permitted? No Care Teams Pecan Picker Relationship Specialty Start Date End Date Jose Eduardo Barboza MD PCP - General Family Medicine 02/09/[address] [place] [address] [address] [place] [address]
--- OUTSIDE RECORDS SUMMARY | 2022-02-05 14:38 | XMS_ITS | Encounter Summary ---
:1950 Author Organization [facility] [place] [address] Care Team Providers Name Role Phone Jose Eduardo Barboza MD Primary Care Provider [phone] Encounter Details Date Type Department Care Team Description 12/02/2021 Ancillary Procedure [place] [address] Social History Tobacco Use Types Packs/Day Years Used Date Never Assessed Sex Assigned at Date Recorded Not on file documented as of this encounter Plan of Treatment Not on filedocumented as of this encounter Procedures Procedure Name Priority Date/Time Associated Diagnosis Comme nts FILM LIBRARY STAT 12/02/2021 12:05 AM Results for this STORAGE ONLY CT EDT procedure ar e in HEAD the results section. documented in this encounter Results Film Library- Storage Only CT Head (12/02/2021 12:05 AM EDT) Specimen (Source) Anatomical Location Collection Method / Collectio n Time Received Time / Laterality Volume Narrative Dicom, Auditing User - 12/08/2021 8:33 P M EDT This exam is auto-finalizing. It's purpo se is for storage only. Misael Kumari MD IMG FILM LIBRARY ORDERABLES documented in this encounter Visit Diagnoses Not on filedocumented in this encounter Care Teams Link Machine Operator Relationship Specialty Start Date End Date Jose Eduardo Barboza MD PCP - General Family Medicine 02/09/[address] [place] [address] documented as of this encounter
--- OUTSIDE RECORDS SUMMARY | 2022-02-05 14:38 | XMS_ITS | Encounter Summary ---
:1950 Author Organization [facility] [place] [address] Care Team Providers Name Role Phone Jose Eduardo Barboza MD Primary Care Provider [phone] Encounter Details Date Type Department Care Team Description 11/11/2021 Interpretation Only [facility] Brad Whalen Jr., [address] [place], [place] [address] [address] [place], [place] [phone] (Wo rk) Social History Tobacco Use Types [...] EDT) P athologist Signature PT CLASS E DH RAD ADMITDTTM DH RAD PT RAD INFO [id number] DH RAD ROWN^BRAD^ A EXAM DESC CTHEAD^CT DH [...] who have questions please contact the health career and guidance counselor that requested your imaging first. ? Electronically signed by: Kevin mei MD, [facility] ([phone]), at 11/11/2021 8:35 PM Narrative 11/11/2021 8:35 PM EDT EXAMINATION: CT [...] ho have questions please contact the health career and guidance counselor that requested your imaging first. Brad Whalen Jr., DO IMG CT ORDERABLES documented in this encounter Visit Diagnoses Not on filedocumented in this encounter Care Teams Predatory Animal Trapper Relationship Specialty Start Date End Date Jose Eduardo Barboza MD PCP - General Family Medicine 02/09/[address] [place] [address] documented as of this encounter
--- OUTSIDE RECORDS SUMMARY | 2022-02-05 14:38 | XMS_ITS | Encounter Summary ---
:1950 Author Organization [facility] [place] [address] Care Team Providers Name Role Phone Jose Eduardo Barboza MD Primary Care Provider Encounter Details Date Type Department Care Team Description 09/14/2021 Hospital [place] [address] Social History Tobacco Use Types Packs/Day Years Used Date Never Assessed Sex Assigned at Date Recorded Not on file documented as of this encounter Medications at Time of Discharge Medication Sig Dispensed Refills Start Date End Date thiamine (Vitamin B1) 100 Take 100 mg by 0 2021 mg mouth Daily. CIS Free Text Med - 60MG = 1 Tablet(s), 0 007 12/08/2021 Inderal PO, Once daily divalproex (DEPAKOTE ER) 1750MG = 3.5 0 7 12/08/2021 500 mg 24 hr tablet Tablet(s), PO, QHS lithium 300 mg tablet 300M TABS IN AM 0 05/2812/08/2021 AND 3 TABS IN PM, PO, Twice daily lamoTRIgine (LAMICTAL) 150 150MG = 1 0 7 12/08/2021 mg tablet Tablet(s), PO, QAM documented as of this encounter [...] Component Value Ref Test Analysis Performed At [facility] Range Method Time Signature Smear Review [id number] ? Location: [facility] The signing pathologist has (i) examined the relevant preparation(s) for the [facility] specimen(s) and (ii) rendered or confirmed the diagnosis(es) . HOSPITAL LABORATORY . ? ear Review DIAGNOSIS PERIPHERAL BLOOD, SMEAR: ?? 1. ??Erythrocytosis (see discussion) ?? 2. ??Mild absolute neutrophilia and monocytosis Electronically signed by: ?Jeff Cook MD Verified: ??09/16/2021 9:17 ?? Hematopathologist Performed at: ??-[facility] Dept. of [place]ology, [place], [place] DISCUSSION The morphologic findings are nonspecific. [...] APRN PATHOLOGY/CYTOLOGY ORDERABLE S Performing Organization Address City/[facility]/[place] [address] Peripheral Smear Review (09/14/2021 8:04 AM EDT) [facility] gist Method Time Signature Periph Smear See Comment [facility] Comment: When completed by the Pathologist, repor t [id number] will display under Hematopathology Reports. Specimen Anatomical Collection Method Collection Time Receive d Time (Source) Location / / Volume Laterality Blood Venous Draw / 09/14/2021 8:04 AM 09/16/19 9:12 Unknown EDT PM EDT Resulting Agency Comment Spec In Lab Sascha Lopez APRN HEMATOLOGY ORDERABLES Performing Organization Address City/[facility]/[place] [address] documented in this encounter Visit Diagnoses Not on filedocumented in this encounter Care Teams Technical Delivery Manager Relationship Specialty Start Date End Date Jose Eduardo Barboza MD PCP - General Family Medicine 02/09/[address] [place] [address] documented as of this encounter
--- OUTSIDE RECORDS SUMMARY | 2022-02-05 14:38 | XMS_ITS | Encounter Summary ---
:1950 Author Organization [facility] [place] [address] Care Team Providers Name Role Phone Jose Eduardo Barboza MD Primary Care Provider [phone] Encounter Details Date Type Department Care Team Description 11/29/2021 Ancillary Procedure [place] [address] Social History Tobacco Use Types Packs/Day Years Used Date Never Assessed Sex Assigned at Date Recorded Not on file documented as of this encounter Plan of Treatment Not on filedocumented as of this encounter Procedures Procedure Name Priority Date/Time Associated Diagnosis Comme nts FILM LIBRARY STAT 11/29/2021 12:00 AM Results for this STORAGE ONLY DX EDT procedure ar e in CHEST the results section. documented in this encounter Results Film Library- Storage Only DX Chest (11/29/2021 12:00 AM EDT) Specimen (Source) Anatomical Location Collection Method / Collectio n Time Received Time / Laterality Volume Narrative Dicom, Auditing User - 12/08/2021 8:28 P M EDT This exam is auto-finalizing. It's purpo se is for storage only. Misael Kumari MD IMG FILM LIBRARY ORDERABLES documented in this encounter Visit Diagnoses Not on filedocumented in this encounter Care Teams Wood Lathe Operator Relationship Specialty Start Date End Date Jose Eduardo Barboza MD PCP - General Family Medicine 02/09/[address] [place] [address] documented as of this encounter
--- OUTSIDE RECORDS SUMMARY | 2022-02-05 14:38 | XMS_ITS | Encounter Summary ---
:1950 Author Organization [facility] [place] [address] Care Team Providers Name Role Phone Jose Eduardo Barboza MD Primary Care Provider [phone] Reason for Visit Reason Comments Ankle Pain Auth/Cert Specialty Diagnoses / Procedures Referred By Contact Refer red To Contact Diagnoses Catatonia Hypophosphatemia Change in behavior Self-care deficit Osmany Olmos MD [facility] [place] [address] Referral ID Status Reason Start Date Expiration Date Visits Requ ested Visits Authorized [id number] 1 1 Encounter Details Date Type Department Care Team Description 12/08/2021 - [place] [id number] [facility] [place] [address] Catatonia (Primary Dx); 12/19/2021 Encounter [facility] Osmany Olmos MD [facility] [place] [address] Change in behavior; [facility] Abdulkadir Jolley MD [facility] [place] [address] Self-care deficit; [facility] [place] [address] Hypophosphatemia [facility] [place] [address] [place] [id number] Social History Tobacco Use Types Packs/Day Years Used Date Never Smoker Smokeless Tobacco: Never Used Alcohol Use Standard Drinks/Week Comments Never 0 (1 standard drink = 0.6 oz pure alcoho l) Sex Assigned at Date Recorded Not on file documented as of this encounter Last Filed Vital Signs Vital Sign Reading Time Taken Comments Blood Pressure 124/69 12/19/2021 3:02 PM EDT Pulse 59 12/19/2021 3:02 PM EDT Temperature 36.6 ??C (97.9 ??F) 12/19/2021 3:02 PM EDT Respiratory Rate 18 12/19/2021 3:02 PM EDT Oxygen Saturation 98% 12/19/2021 3:02 PM EDT Inhaled Oxygen Concentration - - Weight - - Height - - Body Mass Index - - documented in this encounter Discharge Summaries Joseph Almaraz MD - 12/19/2021 2:17 PM EDT Discharge Summary Patient Name: Sebas Shepherd Jr. Patient Age: 71 y.o. Language: Telugu Race: White Ethnicity: Not nor Admit date: 12/08/2021 Discharge date and time: 12/19/2021, 2:21 PM Attending Physician: Joseph Almaraz MD Discharge Physician: Joseph Almaraz MD Follow-up Recommendations for Providers: ?? Coordinate with outpatient psychiatric provider to reinitiate/titrate appropriate psychiatric medications Inpatient Provider Contact Information: For questions regarding this document or issues relating to this hospitalization on the Medical Service, please contact your inpatient physician through the [facility] Packer . Issues after hours and on weekends will be handled by the Hospitalist staff on-call. Discharge Diagnoses (Hospital Problems) and Secondary Diagnoses (Chronic Problems): Active Hospital Problems Diagnosis ??? Catatonia Resolved Hospital Problems No resolved problems to display. Active Non-Hospital Problems Diagnosis ??? Altered mental status ??? Obtundation ??? Bipolar I disorder, most recent episode (or current) manic, moderate Operations/Major Procedures: Operations: Other Major Procedures: n/a History of Presentation: The patient is a 71 y.o. male with past medical history of HTN, DLP, BPH, dementia, bipolar disorderwho presented with altered mental status. The patient has significant psychiatric history with multiple hospitalizations. His hospital stay on the record on 06/2021 ( [facility]) was for acute metabolic encephalopathy (EEG negative for seizure), possible Seroquel overdose, pneumonia, hypernatremia (154). He seemed to be declining over the past year from dementia. They noted the patient has lost significant amount of weight over the past few months. His reports the patient was diagnosed with catatonia in October 2021, however his prior catatonic episodes were not this severe. He has never seen by neurology. He had ED visit at [facility] 2 times in November due to catatonia. ?? The patient was admitted to [facility] due to pneumonia and UTI on 11/30 and was discharged to home on 12/04/2021, now finishing cefuroxime (1 day left). The patient lives withhis and daughter, they reported the patient has been complaining of right ankle pain and not wanting to get out of bed and therefore he will defecate/ urinate on himself. He has had poor oral intake and pretty much not conversing. They were unable to provide care the patient needs at home and in a process of finding long-term care for him. ?? ED course - BP 128/72, HR 66, RR 18, sat 98% RA, temp 36.9 C. Labs showed hypophosphatemia 1.2 (repleted with potassium phos), mild leukocytosis 11.1, pending drug screening and urine analysis. XR Rt ankle did not show acute findings. Psych consulted for catatonia, recommended midazolam. They will reas sess the patient after medication given and recommended neurology consult and MRI for work-up of altered metal status. He received midazolam 4 mg IV x 3 doses with improvement on his catatonia, became more interactive and able to say his and his 's name, following basic commands. Hospital Course: # Probable catatonia # Acute delirium # Bipolar disorder The patient was evaluated by psychiatry. The patient was initiated on IV midazolam for catatonia with improvement as noted by increased alertness and interaction with , nursing and providers. The patient was subsequently switched to Ativan 1 mg 3 times a day for continued management of catatonia. The patient was evaluated for an acute trigger however no trigger was clearly identified. MRI was considered however secondary to need for general sedation was deferred in light of acute clinical improvement. He was continued on home doses of bupropion 100 mg po bid and mirtazapine 45 mg po hs. The patient had ongoing delusions related to his respiratory status, making statements to the effectthat he needed to breath different air than other people and that nasal stuffiness which he complained of portended imminent . No organic pulmonary process was identified, and these statements were thought to be delusional in nature. Therefore, his home olanzapine was slowly reintroduced. Shortly after reintroducing his olanzapine, the patient had an episode where he abruptly became unresponsive over the course of 1.5 days. He tightly shut his eyes and was non-interactive with family and staff. However, he did wake up to eat meals before resuming this status. Later he admitted this was volitional behavior due to feeling overwhelmed and anxious with the hospitalization. Psychiatry followed and made medication management recommendations. Once he was stable from a medical standpoint and had an appropriate functional and ambulatory status, he was discharged to the psychiatry unit for further management. ?? #Hypernatremia The patient was noted to be voiding large amounts of urine output with polydipsia and with urine studies consistent with low osmolarity, raise question of possible diabetes insipidus. Of note, patient was previously on lithium. Patient's sodium levels were followed closely and he was started on a low sodium and protein restricted diet. Sodium levels were closely monitored and remained in the normal level without other intervention as the patient was able to adequately compensate with free water intake. ?? Vital Signs at Discharge: BP: 107/68, Heart Rate: 80, Temp: 36.6 ??C (97.9 ??F), Resp: 16, Functional and Cognitive Status: Ambulatory, cognitively intact Important Studies and Lab Data: Labs: Recent Labs 12/19/21 05012/18/2152212/17/21 0426 WBC 10.1* 10.0* 8.8 HGB 14.1 14.1 14.5 HCT 41.5 42.7 42.8 PLATELET 308 306 315 Recent Labs 12/19/21 0505 12/18/2152212/17/21 0857 12/17/21 0426 NA 140 140 -- 139 K 3.8 3.5 4.1 Not Perf CL 107 109* -- 107 CO2 22 21* -- 22 BUN 12 10 -- 7* CREATININE 1.21 1.18 -- 1.02 No results for input(s): AST, ALT, ALKPHOS, BILITOT, BILIDIR in the last 168 hours. Recent Labs 12/19/21 05012/18/2152212/17/216 12/16/21 0430 CALCIUM 9.1 8.6 8.9 8.6 PHOS -- 2.4* 2.6 2.6 No results for input(s): PT, INR, PTT in the last 168 hours. No results for input(s): CK, TROPONINT in the last 168 hours. Studies: Results for orders placed or performed during the hospital encounter of 12/08/21 XR Ankle Min 3 views Right (Generic) (Exam End: 12/08/2021 4:25 PM) Impression No acute fracture or malalignment of the RIGHT ankle. I have personally reviewed the image(s) and the resident's interpretation and agree with the findings, Aye Serra MD at 12/08/2021 5:05 PM Thank you for letting us participate in the care of this patient. If you are a health care provider and have any questions regarding this report, please contact the number below. For patients who have questions please contact the health child care assistant that requested your imaging first. Chest One View (Exam End: 12/10/2021 4:32 AM) Impression No acute cardiopulmonary findings. Preliminary report signed by: Kailash More at 12/10/2021 4:43 AM I have personally reviewed the image(s) and the resident's interpretation and agree with the findings, Katharine Ferreira MD at 12/10/2021 4:59 AM Thank you for letting us participate in the care of this patient. If you are a health care provider and have any questions regarding this report, please contact the number below. For patients who have questions please contact the health child care assistant that requested your imaging first. Electronically signed by: Katharine Ferreira MD, [facility] ([phone]), at 12/10/2021 4:59 AM Pending Studies and Lab Data: None Discharge Conditions/Prognosis: Stable/Good Discharge to: Psychiatry Discharge Exam: GEN: Sitting in chair comfortably, NAD, on RA, breathing comfortably. Communicative, answering questions HEENT: Anicteric, no conjunctival pallor, EOMI, PERRL; dry mucosa in nares CVS: RRR, S1+S2+no added sounds CHEST: CTABL, no added sounds ABD: Soft, ND/NT, BS+ron NEURO: nonfocal PSYCH: unable to assess EXT: No edema. Mild cogwheel rigidity. Mild resting tremors. SKIN: No rash or open wounds Updated Allergies/ADRs: Allergies Allergen Reactions ??? Hymenoptera Allergenic Extract Other reaction(s): anaphylaxis/angioedema ??? Venom-Wasp Immunizations Given this Hospitalization: There is no immunization history on file for this patient. Discharge Medications: Your Medications New Medications Dose Details OLANZapine 5 mg Tab Commonly known as: ZyPREXA Take 1 tablet by mouth nightly. 5 mg Refills: 0 Continued medications with new dosing Dose Details LORazepam 1 mg Tab Commonly known as: Ativan Take 1 tablet by mouth 3 times daily. What changed: ?? when to take this ?? reasons to take this 1 mg Quantity: 30 tablet Refills: 0 Continued medications, unchanged Dose Details aspirin 81 mg Chew Take 81 mg by mouth daily. 81 mg Refills: 0 buPROPion SR 200 mg Sr12 Commonly known as: Wellbutrin SR Take 200 mg by mouth 2 times daily. 200 mg Refills: 0 folic acid 1 mg Tab Commonly known as: Folvite Take 1 mg by mouth daily. 1 mg Refills: 0 magnesium oxide 400 mg (241.3 mg magnesium) Tab Commonly known as: Mag-Ox Take 400 mg by mouth daily. 400 mg Refills: 0 melatonin 3 mg Tab Take 3 mg by mouth nightly. 3 mg Refills: 0 mirtazapine 45 mg Tab Commonly known as: REMERON Take 45 mg by mouth nightly. 45 mg Refills: 0 polyethylene glycoL 17 gram Pwpk Commonly known as: Miralax Take 17 g by mouth daily. 17 g Refills: 0 senna-docusate 8.6-50 mg Tab Commonly known as: Pericolace Take 1 tablet by mouth daily. 1 tablet Refills: 0 tamsulosin 0.4 mg Cap Commonly known as: Flomax Take 0.4 mg by mouth daily. 0.4 mg Refills: 0 thiamine 100 mg Commonly known as: Vitamin B1 Take 100 mg by mouth Daily. 100 mg Refills: 0 STOPPED Medications cefUROXime 500 mg Tab Commonly known as: Ceftin CIS FREE TEXT MED Depakote ER 500 mg Tablet sr Generic drug: divalproex ER LaMICtal 150 mg Tab Generic drug: lamoTRIgine lithium 300 mg Tab Smoking Status at Discharge: Social History Tobacco Use Smoking Status Not on file Smokeless Tobacco Not on file Instructions Given to Patient at Discharge: Patient Instructions Instructions after leaving the hospital Why you were hospitalized: Changes in behavior with recurrent catatonia. Call your doctor or seek medical attention if you develop the following: chest pain, shortness of breath, feeling dizzy upon standing, passing out, diarrhea, constipation lasting longer than 2 days, fevers (temperature over 100.3), chills, abdominal pain, vomiting, difficulty or discomfort when urinating, bloody or black bowel movements, or any other acute or concerning symptom. Activity level: As tolerated Diet: No restriction Bath/Shower: No restriction Specific instructions related to your condition: Important Medication changes (Please see medication list for full list of medications at time of discharge): Oral Olanzapine 2.5 mg nightly Oral Lorazepam 1mg three times daily Flonase 2 spray and Benavides Lempster as needed for nasal congestion Discontinued: Depakote 500mg, Lamictal 150mg, Dresbach 300mg Follow-Up Appointments No future appointments. Follow up with outpatient psychiatry Dr. Brooks for continued management upon discharge. Your Inpatient Doctor(s) at [facility]: AYE RICHARDS ARSHI YANG, WESLEY Z LOUKAS, ELIAS E O'DOWD, TIMOTHY R For questions regarding issues relating to your hospitalization on the Hospital Medicine Service, please contact your inpatient physician through the [facility]acker [phone]. Issues after hours and on weekends will be handled by the Hospitalist staff on-call. Your Primary Care Provider Jose Eduardo Barboza MD [phone] General Instructions None Discharge References/Attachments None documented in this encounter Discharge Instructions Patient Morelia Stern - 12/11/2021 3:49 PM EDT Instructions after leaving the hospital Why you were hospitalized: Changes in behavior with recurrent catatonia. Call your doctor or seek medical attention if you develop the following: chest pain, shortness of breath, feeling dizzy upon standing, passing out, diarrhea, constipation lasting longer than 2 days, fevers (temperature over 100.3), chills, abdominal pain, vomiting, difficulty or discomfort when urinating, bloody or black bowel movements, or any other acute or concerning symptom. Activity level: As tolerated Diet: No restriction Bath/Shower: No restriction Specific instructions related to your condition: Important Medication changes (Please see medication list for full list of medications at time of discharge): Oral Olanzapine 2.5 mg nightly Oral Lorazepam 1mg three times daily Flonase 2 spray and Benavides Lempster as needed for nasal congestion Discontinued: Depakote 500mg, Lamictal 150mg, Dresbach 300mg Follow-Up Appointments No future appointments. Follow up with outpatient psychiatry Dr. Brooks for continued management upon discharge. Your Inpatient Doctor(s) at [facility]: AYE RICHARDS ARSHI YANG, WESLEY Z LOUKAS, ELIAS E O'DOWD, TIMOTHY R For questions regarding issues relating to your hospitalization on the Hospital Medicine Service, please contact your inpatient physician through the [facility]acker [phone]. Issues after hours and on weekends will be handled by the Hospitalist staff on-call. Your Primary Care Provider Jose Eduarod Barboza MD [phone] documented in this encounter Medications at Time [...] Take 100 mg by 0 mouth Daily. OLANZapine (ZyPREXA) 5 mg Take 1 tablet by 0 /09/2021 Tablet mouth nightly. 2 LORazepam (Ativan) 1 mg Take 1 tablet by 30 tablet 0 2021 Tablet mouth 3 times 2 daily. buPROPion SR (Wellbutrin SR) Take 200 mg by 0 200 mg tablet mouth 2 times 2 sustained-release 12 hr daily. magnesium oxide (Mag-Ox) 400 Take 400 mg by 0 mg (241.3 mg magnesium) mouth daily. 2 Tablet polyethylene glycoL Take 17 g by mouth 0 (Miralax) 17 gram Powder in daily. 2 Packet tamsulosin (Flomax) 0.4 mg Take 0.4 mg by 0 Capsule mouth daily. 2 documented as of this encounter Progress Notes Natasha Bui RN - 12/19/2021 2:52 PM EDT Disoriented to situation. Thought he has only been here one or two days - stating he came because hetwisted his ankle. Impulsive with getting up - setting off chair alarm to use the bathroom/walk around. PT down - walked around the unit with walker. Denies pain, SOB, nausea, heartburn - did remember he had some last night, but did not have it today. Orders in to dc to inpatient psych. PIV removed. Report called to RN on 2E. Pt dc'd to 2E - room 240@1610. Joseph Almaraz MD - 12/19/2021 2:01 PM EDT Hospital Medicine - Attending Day of Discharge Documentation Discharge diagnosis Active Hospital Problems Diagnosis ??? Catatonia Resolved Hospital Problems No resolved problems to display. Secondary Issues Active Non-Hospital Problems Diagnosis ??? Altered mental status ??? Obtundation ??? Bipolar I disorder, most recent episode (or current) manic, moderate I have personally seen and examined the patient and they are ready for discharge. I spent >30 minutes (Day of Discharge Code 97728) involved in the final examination of the patient, discussion of the hospital stay, instructions for continuing care to all relevant caregivers, and preparation of discharge records, prescriptions and referral forms. Plans ? Discharge to Psych ? Follow-up scheduled with N/A ? Please see the Discharge Summary for complete details of any medication changes and additional plans. Joseph Almaraz MD [facility] Medicine Monica Ortiz, OT - 12/19/2021 9:30 AM EDT Occupational Therapy Treatment Note Treatment Number OT: 3 Patient Dx: Per MD note, Sebas Shepherd Jr. is a 71 y.o. male admitted on 12/08/2021 male??with past medical history of HTN, DLP, BPH, dementia, bipolar disorder who presented with altered mental status. Social History: (obtained from pt's and chart review 05/07 pt's AMS) Home Setup: Pt lives with his , daughter, LAURENCE and grandchildren in a 2 story home with 2 RAPHAEL. The pt lives on the first floor of the time. The bathroom has a tub shower with no chair or grab bars present. Functional Status: Pt had been independent with ADLs and mobility up until a few months ago. He would occasionally use a walking stick on uneven ground outside. Pt has had multiple hospitalizations over the last few months for PNA and UTIs, he was discharged on 12/04 from his most recent hospitalization. Equipment at home: FWW Fall history: Pt's reported that he had one fall about a month ago when he tripped over the sidewalk Precautions/Special Considerations: fall risk, DNR, Dysphagia soft diet with thin liquids, PIV, up with assist Interval History: JUNIOR S: My breathing feels fine today. O: Patient seen for skilled OT treatment, and demonstrated the following: ?? Self-care and Functional Mobility: ?? Pt received sitting in recliner, agreeable to participate in OT session ?? Sit to stand: CGA, pt requesting to be weighed ?? Pt was able to ambulate to the scale and then <> the bathroom with CGA with no LOB noted ?? Pt able to stand at the sink for ~5 minutes to complete grooming tasks with CGA with no LOB notedand no cues required ?? Supervision assist to complete LB dressing while sitting in recliner, no cues required for sequencing dressing tasks ?? Pt left sitting in recliner with all needs met, call light in reach and chair alarm on, visiting bedside ?? Cognition: ?? Behavior / Mood: alert, cooperative and flat affect ?? Alert and oriented to: did not ask orientation questions ?? Follows commands: 1 step, 2 step, 100% of the time and requires increased time ?? Attention: WFL ?? Safety awareness: WFL ?? Vision: pt not wearing glasses, appears WFL ?? Endurance: good ?? Vitals: ?? HR: 70s throughout session ?? SpO2: 96% on RA ?? Strength/ROM: BUE and BLE WFL Pain: no c/o pain Education: Pt/family/caregiver education ongoing regarding: Role of occupational therapy/rehabilitation, Transfers, ADL, Safety, Functional Mobility, Activity pacing/Energy conservation and Recommendations. Staff Communication: Patient status, treatment, and mobility recommendations discussed with nursing/other staff. ASSESSMENT: Pt seen to continue OT POC. Pt appearing more alert, cooperative and interactive during today's session. Pt was able to ambulate into the bathroom to complete grooming tasks while standing at the sink with CGA. Pt was then able to complete LB dressing with no cues for sequencing. Pt is near her baseline functional status and is likely discharging to the inpatient psych unit later in the day. Pt will be placed on monitor status at this time and OT will re-engage if necessary. Equipment needs at discharge: None Anticipated Discharge Disposition: (Pt likely being discharged to inpatient psych unit) Daily schedule / Staff Recommendations: ?? Transfer to recliner chair as appropriate with 1 A using FWW, ambulate as tolerated ?? Encourage participation in ADL's by providing set up A on tray table and physical assist only as needed ?? Promote normalcy by encouraging participation in common daily tasks & leisure activities by providing set up assist ?? Encourage use of coping & calming strategies ?? Give choices when possible to support feelings of autonomy ?? Frequent orientation verbally & visually ?? Keep glasses, hearing aides, cell phones, tablets, etc within reach ?? Facilitate a normal sleep-wake cycle ?? Provide brief, clear instruction from one source at a time ?? Reduce extraneous stimulation ?? Provide calming music, favorite TV programs, magazines or newspapers ?? Bathroom or commode for toileting needs, if appropriate Goals: To be achieved by 12/27/21. Pt will complete toileting routine including transfer to the bathroom, clothing management, and hygiene??with supervision assist and min cues. Pt will complete 2 grooming tasks standing at the sink with supervision assist??and min cues.- PROGRESSING Pt will complete LB dressing with supervision assist using AE as needed. Pt will complete functional??transfers and??mobility with supervision assist for??participation??in ADLs using self-pacing as needed and LRAD.- PROGRESSING Therapy Frequency (OT): Monitor Total Minutes, Occupational Therapy: 25 (09:30-09:55 SCx2) Pager: [phone] Monica Ortiz, OTR/L 12/19/2021 Occupational Therapy Rehabilitation Department Yoko Dexter, PT - 12/19/2021 8:52 AM EDT Physical Therapy Note Treatment Number PT: 3 Patient profile: Sebas Shepherd Jr. is a 71 y.o. male with past medical history of HTN, DLP, BPH, dementia, bipolar disorder who presented with altered mental status. Interval History: no acute events Social History: Home set-up: lives with his , daughter, LAURENCE, and grandchildren in a 2-story home Stairs: 2 RAPHA[address] main level, per pt's pt needs assistance to ascend/descend 2 steps into home Baseline Mobility: pt was independent without a device up until a few months ago, would occasionallyuse a walking stick outside. It appears pt has had multiple hospitalizations over the last few months, most recently hospitalized for PNA and UTI, discharged home 12/04. He has been complaining of R ankle pain which has limited his ability to mobilize OOB for the last ~2 weeks (x-ray negative for fracture). Equipment at home: FWW Fall history: pt's , Sisi, reports pt fell ~1 month ago, tripped over sidewalk Precautions/Special Considerations: Fall risk Mobility and Positioning Recommendations: ?? Pt is up with SBA and a FWW for ambulation and transfers. ?? Please encourage up to chair for meal times as able. ?? Recommend ambulating to bathroom and out in hallway with staff at least 3x/day. Subjective: My ankles feel a little tender, I'm not sure why Objective: Patient seen for physical therapy and demonstrated the following: Pain: reported some soreness in bilateral ankles while ambulating Vital Signs: stable on room air ?? Pt supine in bed on therapist arrival, just finished breakfast, agreeable to working with PT ?? Performed supine>sit with mod I with HOB elevated ?? Performed sit>stand with SBA and FWW ?? Min assist to don robe, demonstrated good dynamic standing balance ?? Ambulated 150ft with SBA and FWW ?? Gait mechanics: decreased gait speed, no LOB noted ?? Pt left in bedside recliner chair, with all needs met, with call grewal in reach and with chair alarm active and and RN present following visit. Education: transfers, ambulation, balance, safety, PT plan of care Assessment: Sebas Dayron Shepherd Jr. was seen today for physical therapy treatment session for continuation of POC. Pt demonstrates improved activity tolerance, ambulating with SBA and a FWW. Pt will benefit from ongoing therapeutic interventions to achieve therapy goals. Discharge Recommendations: Based on the current findings, Anticipated Discharge Disposition (PT): other (see comments) (plan for transfer to inpatient psych, possibly LTC after. If able to d/c home with family, would recommend PT) when medically ready for hospital discharge. Consult Recommendations: No other consults recommended at this time. Equipment needs: Anticipated Equipment Needs at Discharge (PT): to be determined Goals: To be achieved by 12/25/21: ?? 1. Pt. to demonstrate knowledge of safety limitations and precautions and will appropriately requestassistance for functional activities and to mobilize. 2. Pt. to demonstrate understanding of appropriate exercises. 3. Pt. to perform bed mobility independently. 4. Pt. to perform all transfers with modified independence using the LRAD. 5. Pt. to ambulate 150 feet with modified independence using a the LRAD. 6. Pt. to ambulate up/down 2 step/stairs using one hand hold with min A. 7. Family or caregiver to demonstrate understanding of therapeutic interventions to support the careof the patient Plan: Therapy Frequency (PT): 1-3 times/wk for as outlined in initial evaluation. Patient agrees with plan as stated. Time IN / OUT: 0968-7639 Total Minutes, Physical Therapy: 9 Billing Code: 1 saw Dexter, PT Pager: [phone] Physical Therapy Inpatient Rehabilitation Department Morelia Hughes - 12/19/2021 7:05 AM EDT [facility] Medicine Attending Daily Progress Note Admit Date: 12/08/2021 Hospital Day 9 days Subjective Interval History: ??? No acute overnight events ??? Conversant and engaged ??? Sitting up in chair during encounter today ROS: Otherwise negative Active Hospital Problems Diagnosis ??? Catatonia Resolved Hospital Problems No resolved problems to display. PMH Active Non-Hospital Problems Diagnosis ??? Altered mental status ??? Obtundation ??? Bipolar I disorder, most recent episode (or current) manic, moderate Inpatient Medications: Scheduled ??? OLANZapine 5 mg Oral Nightly ??? LORazepam 1 mg Oral TID Or ??? midazolam (PF) 2 mg Intravenous TID ??? fluticasone propionate 2 spray Each Nare Daily ??? sodium chloride 2 spray Each Nare BID ??? aspirin 81 mg Oral Daily ??? buPROPion SR 100 mg Oral BID ??? mirtazapine 45 mg Oral Nightly ??? tamsulosin 0.4 mg Oral Nightly ??? thiamine 100 mg Oral Daily ??? sodium chloride 0.9 % (flush) 5 mL Intravenous BID ??? enoxaparin 40 mg Subcutaneous Nightly ??? melatonin 3 mg Oral Nightly Continuous infusions: PRN: carboxymethylcellulose, LORazepam, albuteroL, polyethylene glycoL, senna- docusate, sodium chloride 0.9 % (flush), lidocaine, acetaminophen Objective Physical Exam Vitals Range last 24 hrs Temperature Temp: [36.6 ??C (97.9 ??F)-36.9 ??C (98.4 ??F)] Heart Rate Heart Rate: [70-87] Blood Pressure BP: (107-140)/(68-84) Respiratory Rate Resp: [16] SpO2 SpO2: [94 %-97 %] Patient Vitals for the past 24 hrs: Temp Heart Rate From SP02 Pulse Resp BP SpO2 O2 Device 12/18/21 1336 36.9 ??C (98.4 ??F) 86 bpm 87 16 140/84 95 % RA 09/15/22 1952 36.6 ??C (97.9 ??F) 71 bpm 70 16 131/69 94 % RA 12/19/21 0150 36.6 ??C (97.9 ??F) 82 bpm 85 16 122/81 95 % RA 12/19/21 0659 36.6 ??C (97.9 ??F) 81 bpm 80 16 107/68 97 % RA Intake/Output Summary (Last 24 hours) at 12/19/2021 1205 Last data filed at 12/19/2021 0855 Gross per 24 hour Intake 1800 ml Output 500 ml Net 1300 ml Physical Exam Constitutional: General: He is not in acute distress. Cardiovascular: Rate and Rhythm: Normal rate and regular rhythm. Heart sounds: No murmur heard. No friction rub. No gallop. Pulmonary: Effort: Pulmonary effort is normal. Breath sounds: Normal breath sounds. No stridor. No wheezing or rhonchi. Abdominal: General: Abdomen is flat. Bowel sounds are normal. Palpations: Abdomen is soft. Neurological: Mental Status: He is alert. Psychiatric: Attention and Perception: Attention normal. Behavior: Behavior is cooperative. Studies reviewed in eDH. Remarkable for the following: LABS: Lab Results Component Value Date WBC 10.1 (H) 12/19/2021 HGB 14.1 12/19/2021 HCT 41.5 12/19/2021 MCV 89.8 12/19/2021 PLATELET 308 12/19/2021 Lab Results Component Value Date NA 140 12/19/2021 K 3.8 12/19/2021 CL 107 12/19/2021 CO2 22 12/19/2021 BUN 12 12/19/2021 CREATININE 1.21 12/19/2021 GLUCOSE 106 12/19/2021 CALCIUM 9.1 12/19/2021 ESTGFR 64 12/19/2021 MICRO: No results for input(s): URINECULTURE in the last 720 hours. No results for input(s): GRAMSTAIN, BFCX, LOWERRESPCX, TISSUECX in the last 720 hours. No results for input(s): BLOODCX in the last 720 hours. ECG: Recent Labs 12/10/21 0405 DIAGLINE Sinus rhythm with 1st degree A-V block Left bundle branch block Abnormal ECG When compared with ECG of 08-DEC-2021 17:16, MO interval has increased T wave inversion now evident in Inferior leads T wave inversion more evident in Lateral leads I personally reviewed the tracing and edited the fellows interpretation Confirmed by fellow MD Daily Andrew ([id number]) on 12/10/2021 1:40:27 PM Confirmed by Marge Torres ([id number]) on 12/10/2021 1:53:13 PM QTCCALC 486 IMAGING: NA OTHER Studies: NA Assessment and Plan: Sebas Shepherd Jr.??is a 71 y.o.??male??with past medical history of HTN, DLP, BPH, dementia, bipolar disorder who presented with altered mental status. ?? Overall improved mentation, mood and mobility. Awaiting inpatient psych transfer. Hemodynamically stable. As per psych recs, will not make any modifications with psych medications at this time. They state his can't take care of him and that after he is discharged to SNF will need LTC. This process hasalready been initiated.? Summary of plan with changes for??12/19/2021: No changes Awaiting to be dc to inpatient psych ? # Probable catatonia # Acute delirium, improving - psych input appreciated - scheduled ativan 1 mg PO TID, IV versed if patient refuses oral route. - continue olanzapine 2.5 mg QHS (started 12/15) - r/o metabolic/ structural cause - defer MRI for now given improvement ?? #Nasal stuffiness Improved overall. Has been saturating well at 96% RA and has not voiced any concerns in this regard. ?? Per patient's sister, his perseverance on this issue may be delusional in nature. Has apparently often made statements about being different from everyone else and needing a different kind of air to breathe. This is in context of seeing his mother from COPD and spending her last days on a vent. Nothing to suggest any pulmonary processes for Mr. Shepherd at this time. ?? -Continue Benavides [place]ster - Flonase 2 sprays prn -Reassurance that he is oxygenating excellently ? #Hypernatremia, resolved Hypernatremia has resolved and now stable several days with prior interventions. Patient might have DI??(with previous lithium use)??but is compensating adequately with free water consumption. Not inclined to add HCTZ at present. - patient drinking to thirst - CTM ?? # Hypophosphatemia - Continue to monitor phos level. - will follow BMP ?? # Bipolar disorder - resume bupropion 100 mg po bid - resume mirtazapine 45 mg po hs ?? # Recent UTI and pneumonia - improving per his ?? # BPH - resume tamsulosin 0.4 mg po daily ?? Diet: Dysphagia soft Discharge planning: SNF/LTC? PT/OT/Speech: ordered Vitals/lab/FS/frequency vitals: Q6H, Labs daily Cod status: Do NOT attemtp CPR-Inpatient PCP: Jose Eduardo Barboza MD Team Pager(MD Coverage 26/10): #[phone] PCP: Jose Eduardo Barboza MD [phone] Morelia Hughes 12/19/2021 Radha Shankar RN - 12/19/2021 5:19 AM EDT Illness Severity [x] Stable [] Watcher [] Unstable Patient Summary Reason for admission: altered mental status or catatonia Relevant PMH: dementia, bipolar disorder, HTN/HLD, BPH and recent PNA/UTI 12/18 PM: Sebas was alert and oriented to self, place, and situation. He smiled at and spoke with staff overnight. Aside from baseline bradycardia, all VSS on RA. No c/o pain, nausea, anxiety, or SOB. He ambulated to the bathroom with SBA to void. At around 0330, Sebas c/o feeling like a big ball ofgas, Dr. Helms notified; one-time order of simethicone 80 mg obtained and administered, to excellent effect. Otherwise no untoward events, and Sebas slept comfortably between care. Chemo plan & supportive medication: N/A Baseline Weight: 73 kg Most recent weight: 73 kg Action List Encourage PO intake - Dysphagia soft diet. 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 Pt was more engaged today. Pt sat on the chair all afternoon. Pt verbalizes feeling great. Pt denies any pain. VSS. All meds given per MAR. Family at the bedside. Pt in no distress. Bed alarm is on. Washington Stratton MD - 12/18/2021 10:08 AM EDT Psychiatric Inpatient Consultation Follow Up Note Time Spent: 45 Information Sources: Patient. Family. Relationship to patient: . Electronic Medical Record. This patient was discussed with Dr. Bob. See his note for confirmatory and/or revisionary documentation. Reason for consultation: Concern for Catatonia Interim History: - On interview, he relates that he doesn't remember much surrounding the initial days of hospitalization (he had initially thought he'd only been in the hospital for 2 days while it's currently HD#8).On further discussion, he relates that yesterday and the day before he was willfully not interactivewith everyone within the hospital or his family. He reported that this was primarily because he was feeling so overwhelmed with anxiety regarding his concerns over possible asphyxia and not being able to breathe. He noted he never had an event like this before, but he does feel the urge to shut down and become less interactive when he has anxiety or other distressing emotions. On further discussion with the patient, as well as his family once they and are during the evaluation, he noted that severalmonths prior he had been in [place] with family and had impulsively taken the car from [place] to [place] and back without letting anyone know, without a real purpose. He also relates that he does thingsthat upset his family, such as not bathing regularly and even had an episode of bedwetting in the past couple months. His family adds that he has been extremely lethargic and down over the last severalmonths prior to his admission, and that sometimes he will be in bed for days at a time. His reports that he became more disheveled and she noticed significant changes in him starting about August of this year. This is also the same time that the family moved up here from [place], and the patient reports they have been staying with different family members a different location since they have arrived here. - Patient reports he feels much better this morning - Currently, he notes his anxiety is improved significantly. He states that he recognizes that not interacting with hospital staff is probably not the best way to handle his anxiety, but it was the way that he ended up handling it. He currently notes he does not have any significant anxiety about breathing or asphyxia. He currently denies any other symptoms such as any new numbness or weakness, denies any prolonged fatigue or change in his mental status that he is aware of, and notes no new chest pain or feelings of shortness of breath. -Review of the chart shows has been afebrile vital signs have been stable. Review of Systems: Psychiatric: See above Constitutional : Energy good, no fatigue Respiratory: No shortness of breath Extent of history Determination: Adarsh descriptors, reviewed systems, and level of history with x. HPI Descriptors 1-3 1-3 X 4 + Reviewed Systems 0 1 X 2-9 Level of Hx PF EPF X D Physical Exam: Last value Range last 24 hrs Temperature Temp: 36.6 ??C (97.9 ??F) Temp: [36.4 ??C (97.6 ??F)-36.9 ??C (98.4 ??F)] Heart Rate Heart Rate: 61 Heart Rate: [61-85] Blood Pressure BP: 108/68 BP: (108-137)/(62-81) Respiratory Rate Resp: 16 Resp: [15-18] SpO2 SpO2: 96 % SpO2: [92 %-97 %] Mental Status Evaluation: Musculoskeletal System: Muscle Strength/Tone (note atrophy, abnormal movements): No cogwheeling noted today . Normal bulk. Gait and Station: Deferred Psychiatric: Patient sitting up in chair, actively eating his breakfast upon my entry. Initiated eye contact and maintained good eye contact throughout the interview. ?? Appearance: Well groomed, he has recently taken a shower. Appears stated age. Appears relaxed. ?? Behavior: Patient was engaging with conversation and no abnormal stereotyped behaviors were noted. He maintains appropriate eye contact, and his mannerisms as well as his speech content and quality speech were appropriate. ?? Speech: Patient was speaking in clear appropriate sentences. The overall content of the speech was relatively concrete, we are discussing how he was feeling the associations he made were concrete linear associations. During our conversation, the patient tended to perseverate on objects or in front of him and how they may have been potentially irritating to him over the previous days of his hospitalization. Overall his speech was fluent without any signs of aphasia or impaired perception. ?? Language: His language is appropriate, without any obvious abnormalities present. ?? Mood: His mood fluctuated between anxious and relaxed. He appeared to get anxious when he was talking about feelings of control, specifically that he felt that his family as well as the hospital staff were trying to control his actions and tell him what to do. He was subsequently appear to relax when the conversations had changed topics, he also appeared relaxed after discussing what he was concerned about. ?? Affect: Overall his affect was congruent with his mood. ?? Thought Process: The patient was exhibiting overall relatively concrete and linear thought processes. The overall content of this thought seem to be concern over how his actions were perceived by others, specifically feeling that others were trying to tell him what to do, including his family. ?? Associations: Overall appeared appropriate. ?? Thought Content: See prior descriptions, but in brief patient's thought content was overall concrete and linear, with perseveration on thought that he is being told what to do, and at times does notknow what is an abnormal behavior. ?? Perception: Denied any auditory or visual hallucinations. ?? Orientation: Today the patient was oriented to his name of location as well as situation, he was not oriented fully to date ?? Attention/Concentration: Patient demonstrated good concentration with some episodes of inattention when he became more fixated on topics such as loss of control, and his recent hospitalization. These were short-lived, and he quickly returned to the conversation and was redirectable. ?? Cognition: Appears appropriate ?? Memory: Not formally assessed, however the patient did remember remote details that his confirmed, and remember some details of his recent hospitalization while having no real memory of the or early hospitalization. ?? Fund of Knowledge: Not formally assessed ?? Insight: The patient demonstrated overall good insight during her interview. He was able to identify that some of his behaviors were concerning to his family and loved ones. He stated I do not understand why they are wrong, but willing to accept that. He also voiced that he be willing to titrate medications or undergo psychiatric admission at them and that it would improve his overall behavior for the long-term. Judgment: Currently limited, however seems improved compared to prior interviews. Rodríguez-Darshan Catatonia Rating Scale: Use presence or absence of items 1-14 for screening Use the 0-3 scale for items 1-23 to rate severity. 1) Excitement: Extreme hyperactivity, constant motor unrest which is apparently non-purposeful. Not to be attributed to akathisia or goal directed agitation 0 = Absent 2) Immobility/stupor: Extreme hypoactivity, immobile, minimally responsive to stimuli 0 = Absent 3) Mutism: Verbally unresponsive or minimally responsive 0 = Absent 4) Staring:Fixed gaze, little or no visual scanning of environment, decreased blinking. 0 = Absent 5) Posturing/catalepsy: Spontaneous maintenance of posture(s), including mundane (e.g. setting or standing for long periods without reacting) 0 = Absent 6) Grimacing: Maintenance of odd facial expressions. 0 = Absent 7) Echopraxia/echolalia: Mimicking of examiner's movements/speech. 0 = No mimicking of examiner's movements/speech 8) Stereotypy: Repetitive, non goal-directed motor activity (e.g. Finger-play; repeatedly touching, patting or rubbing self); abnormality not inherent in act but in frequency. 0 = Absent 9) Mannerisms: Odd, purposeful movements (hopping or walking tiptoe, saluting passers-by or exaggerated caricatures of mundane movements); abnormality inherent in act itself. 0 = Absent 10) Verbigeration: Repetition of phrases or sentences (like a scratched record). 0 = Absent 11) Rigidity: Maintenance of a rigid position despite efforts to be moved, exclude if cog-wheeling or tremor present. 0 = Absent 12) Negativism: apparently motiveless resistance to instructions or attempts to move/examine patient. Contrary behavior, does exact opposite of instruction: 0 = Absent 13) Waxy Flexibility: During reposturing of patient, patient offers initial resistance before allowing himself to be repositioned, similar to that of a bending candle 0 = Absent 14) Withdrawal: Refusal to eat, drink and/or make eye contact 0 = Absent 15) impulsivity: Patient suddenly engages in inappropriate behavior (e.g. Runs down hallway, starts screaming or takes off clothes) without provocation. Afterwards can give no, or only a facile explanation 0 = Absent 16) Automatic Obedience: Exaggerated cooperation with examiner's request or spontaneous continuationof movement requested. 0 = Absent 17) [place]: Anglepoise lamp arm raising in response to light pressure of finger, despite instruction to the contrary. 0 = Absent 18) [place]: Resistance to passive movement which is proportional to strength of the stimulus, appears automatic rather than willful. 0 = Absent 19) Ambitendnecy: Patient appears motorically stuck in indecisive, hesitant movement. 0 = Absent 20) Grasp Reflex: Per neurological exam. 0 = Absent 21) Perseveration: Repeatedly returns to same topic or persists with movement. 0 = Absent 22) Combativeness: Usually in an undirected manner, with no, or only a facile explanation afterwards. 0 = Absent 23) Autonomic abnormality [place]: Temperature, BP, Pulse, Respiratory rate, diaphoresis 0 = Absent Total 1-14: Total: 0 Pertinent Diagnostic Testing: No new tests for review Extent of Exam Determination: Adarsh completed bullets & level of exam with ? X? Bullets Completed 1-5 6-8 X 9+ Level of Exam PF EPF X D Assessment: The patient is a 71-year-old gentleman with past medical history of bipolar disorder, presumed dementia, and suspected recent catatonia who presented [facility] with progressively altered mental status as well as concern for catatonia recurrence. 12/18/2021 Overall the patient's clinical picture is much improved compared to prior. On interview today he reported that he was volitionally not opening his eyes for the last 2 days, and was overall disillusioned with his hospitalization which caused him to be less interactive. Today when discussing with him, he maintained good eye contact, had reasonable memory of the events surrounding just prior to his admission, and appeared to have reasonable insight into his condition. It is difficult to explain the series of events, most likely the patient did to have some degree of catatonia initially which may have evolved into an overlay with catatonia that was improving as well as a behavioral component of avoidance. Today several the symptoms he is describing, which even predate his last 2 hospitalizations, or concerning for worsening of his bipolar symptoms. Specifically he is having decreased hygiene, decreased activity, sleeping significantly more than normal, and was also displaying evidence of increased i mpulsiveness. In light of this we discussed titrating his medications, and the patient was amenable to us contacting Dr. Brooks, his outpatient psychiatrist, to discuss indications for when the patientwas transitioned off of lithium as well as Depakote. In addition, the concept of potential voluntarypsychiatric admission was raised with the patient and he was overall agreeable to this, although this has not been formalized as he only just within the past 24 hours became more functional and communicative. We will plan acemetacin team to get reevaluations with physical therapy and Occupational Therapy to ensure that he is appropriate for the inpatient psychiatric team, and in the interim we will wo rk to reach out to Dr. Brooks, his outpatient psychiatrist, to develop a plan of action that can be safely transition to the outpatient setting once his inpatient needs are met. Primary Diagnosis: Suspected Improving Catatonia vs. Emergence of Bipolar Symptoms Plan/Recommendations: - Increase olanzapine to 5 mg PO QHS - Continue lorazepam 1 mg PO TID, this should be given as a priority and should not be marked as refused without attempting atleast 2x, would give midazolam IV/IM as a second line if unable to tolerate lorazepam. - Will discuss with his outpatient psychiatry team at [facility], may be appropriate for inpatient psychiatric admission if patient is agreeable and PT/OT assess that he is appropriate for the psychiatric floor from a functional perspective. Patient on IEA Status? IEA: NO, patient is not on IEA, but decision making capacity may require reassessment by psychiatry if patient attempts to leave AMA. Recommendations were communicated to primary swat team member Dr. Almaraz @ #[phone]. Washington Stratton MD 12/18/2021 Coding Determination Complexity of MDM Determination: Adarsh appropriate # of Dx, Amt, complexity of date, Risk, & corresponding level of MDM with x. 2 out of 3 elements in row must be met to qualify. # of Possible Diagnoses or Management Options Amount and/or Complexity of Data Risk of Complications, Morbidity, and or Mortality Type of Decision Making Minimal Minimal/None Minimal Straightforward Limited Limited Low Low Multiple Moderate Moderate Moderate X Extensive X Extensive X High X High Subsequent Hospital Day Service Code Determination: Adarsh Hx, Exam, MDM & SALVATORE/CPT Code with x. 2 out of # hernandez components in the row must be met to qualify. HISTORY EXAM MDM SALVATORE/CPT CODE PF PF Straightforward/Low 3005/17062 EPF EPF Moderate 3015/74126 X D X D X High X [id number]/96867 Associated attestation - Mayco Bob MD - 12/19/2021 1:36 PM EDT Psychiatry Attending Note I discussed this patient's situation with the resident but did not see the patient. I contributed tothe formulation and treatment planning as documented in the resident's note. Mayco Bob MD Psychiatry Consultation Pager: [phone] OJoseph Donohue MD - 12/18/2021 7:25 AM EDT Images from the original note were not included. Hospital Medicine Attending Daily Progress Note Admit Date: 12/08/2021 ( Hospital Day 8 days ) Active Hospital Problems Diagnosis ??? Catatonia Resolved Hospital Problems No resolved problems to display. ASSESSMENT: Sebas Shepherd Jr. is a 71 y.o. male with past medical history of HTN, DLP, BPH, dementia, bipolar disorder who presented with altered mental status. Patient now abruptly improved in his mentation and alertness. He admitted to Psych today that he hadbeen wilfully non-interactive in recent days. Per Psych, potentially some concerns for manifestationof bipolar. Currently Mr. Shepherd has no active medical issues and given his ongoing Psychiatric needs might be best served on an inpatient Psych service, which he is reportedly agreeable with. Per discussions with family, they state his can't take care of him at home and that after he isdischarged to SNF will need LTC. This process has already been initiated. PLAN: # Probable catatonia # Acute delirium, improving - psych input appreciated - scheduled ativan 1 mg PO TID - continue olanzapine 2.5 mg QHS (started 12/15) - r/o metabolic/ structural cause - defer MRI for now given improvement #Nasal stuffiness Per patient's sister, his perseverance on this issue may be delusional in nature. Has apparently often made statements about being different from everyone else and needing a different kind of air to breathe. This is in context of seeing his mother from COPD and spending her last days on a vent. Nothing to suggest any pulmonary processes for Mr. Shepherd at this time. -Continue Benavides Lempster -Add Flonase 2 sprays daily -Encourage warm shower today -Reassurance that he is oxygenating excellently ?? #Hypernatremia, resolved # Hypophosphatemia, resolved Hypernatremia has resolved and now stable several days with prior interventions. Patient might have DI (with previous lithium use) but is compensating adequately with free water consumption. Not inclined to add HCTZ at present. - patient drinking to thirst - CTM BMP, Phos ? # Bipolar disorder - resume bupropion 100 mg po bid - resume mirtazapine 45 mg po hs ?? # Recent UTI and pneumonia, resolved ?? # BPH - resume tamsulosin 0.4 mg po daily Diet Dysphagia Soft Diet 60 gm Protein; 2 GM NA Discharge planning SNF --> ? LTC vs Psych inpatient PT/OT/Speech Ordered Lines/Access none Funk catheter No DVT/GI Prophylaxis Lovenox Vital/lab/FS frequency Vitals Q6H, Labs Qdaily Code status Do NOT Attempt CPR - Inpatient Family Sisi Shepherd (spouse) [phone] PCP Jose Eduardo Barboza MD [phone] Attestation IPI Certification I certify that I am a [facility] credentialed attending provider with admitting privileges and that the patient meets or has met medical necessity to require an inpatient IPI level of care meeting a minimum of two midnights or is on the [facility] inpatient only procedure list (status C) due to: catatonia Team (26/10 Coverage) 2500 PCP: MD El Camejo MD [facility] Medicine 12/18/2021 Subjective/24hr events: - No acute events - Pt seen and examined at bedside with family present - Patient alert and interactive today. Says he is feeling very good and has no complaints ROS: unable to obtain Vitals: Last value Range last 24 hrs Temperature Temp: 36.6 ??C (97.9 ??F) Temp: [36.4 ??C (97.6 ??F)-36.9 ??C (98.4 ??F)] Heart Rate Heart Rate: 61 Heart Rate: [61-85] Blood Pressure BP: 108/68 BP: (108-137)/(62-81) Respiratory Rate Resp: 16 Resp: [15-18] SpO2 SpO2: 96 % SpO2: [92 %-97 %] Intake/Output Summary (Last 24 hours) at 12/18/2021 1203 Last data filed at 12/18/2021 0600 Gross per 24 hour Intake 1480 ml Output -- Net 1480 ml EXAM GEN: Sitting in chair comfortably, NAD, on RA, breathing comfortably. Communicative, answering questions HEENT: Anicteric, no conjunctival pallor, EOMI, PERRL; dry mucosa in nares CVS: RRR, S1+S2+no added sounds CHEST: CTABL, no added sounds ABD: Soft, ND/NT, BS+ron NEURO: nonfocal PSYCH: unable to assess EXT: No edema. Mild cogwheel rigidity. Mild resting tremors. SKIN: No rash or open wounds LABS: Reviewed in eDH. Remarkable for the following: Recent Labs 12/18/2152212/17/2142512/16/21 0430 WBC 10.0* 8.8 9.2 HGB 14.1 14.5 14.5 HCT 42.7 42.8 43.7 PLATELET 306 315 286 Recent Labs 12/18/2152212/17/21 0857 12/17/2142512/16/21 0430 NA 140 -- 139 142 K 3.5 4.1 Not Perf 3.5 CL 109* -- 107 108* CO2 21* -- 22 24 BUN 10 -- 7* 6* CREATININE 1.18 -- 1.02 1.08 GLUCOSE 96 -- 92 84 CALCIUM 8.6 -- 8.9 8.6 MAGNESIUM -- -- -- 0.71 PHOS 2.4* -- 2.6 2.6 No results for input(s): AST, ALT, ALKPHOS, BILITOT, BILIDIR in the last 72 hours. MICRO: No results for input(s): URINECULTURE in the last 720 hours. No results for input(s): BLOODCX in the last 720 hours. COVID 19 PCR : Microbiology Results (Last 30 days) No results found for the last 720 hours. STUDIES: Results for orders placed or performed during the hospital encounter of 12/08/21 XR Ankle Min 3 views Right (Generic) (Exam End: 12/08/2021 4:25 PM) Impression No acute fracture or malalignment of the RIGHT ankle. I have personally reviewed the image(s) and the resident's interpretation and agree with the findings, Aye Serra MD at 12/08/2021 5:05 PM Thank you for letting us participate in the care of this patient. If you are a health care provider and have any questions regarding this report, please contact the number below. For patients who have questions please contact the health child care assistant that requested your imaging first. Chest One View (Exam End: 12/10/2021 4:32 AM) Impression No acute cardiopulmonary findings. Preliminary report signed by: Kailash More at 12/10/2021 4:43 AM I have personally reviewed the image(s) and the resident's interpretation and agree with the findings, Katharine Ferreira MD at 12/10/2021 4:59 AM Thank you for letting us participate in the care of this patient. If you are a health care provider and have any questions regarding this report, please contact the number below. For patients who have questions please contact the health child care assistant that requested your imaging first. Electronically signed by: Katharine Ferreira MD, [facility] ([phone]), at 12/10/2021 4:59 AM Medications: Scheduled Meds: ??? LORazepam 1 mg Oral TID Or ??? midazolam (PF) 2 mg Intravenous TID ??? OLANZapine 2.5 mg Oral Nightly ??? fluticasone propionate 2 spray Each Nare Daily ??? sodium chloride 2 spray Each Nare BID ??? aspirin 81 mg Oral Daily ??? buPROPion SR 100 mg Oral BID ??? mirtazapine 45 mg Oral Nightly ??? tamsulosin 0.4 mg Oral Nightly ??? thiamine 100 mg Oral Daily ??? sodium chloride 0.9 % (flush) 5 mL Intravenous BID ??? enoxaparin 40 mg Subcutaneous Nightly ??? melatonin 3 mg Oral Nightly Continuous Infusions: PRN Meds:.LORazepam, albuteroL, polyethylene glycoL, senna-docusate, sodium chloride 0.9 % (flush), lidocaine, acetaminophen Radha Shankar RN - 12/18/2021 6:14 AM EDT Illness Severity [x] Stable [] Watcher [] Unstable Patient Summary Reason for admission: altered mental status or catatonia Relevant PMH: dementia, bipolar disorder, HTN/HLD, BPH and recent PNA/UTI 12/17 PM: Sebas was alert and oriented to self and place. He smiled at and spoke with staff overnight. Aside from baseline bradycardia, all VSS on RA. No c/o pain, nausea, anxiety, or SOB.He ambulated to the bathroom with SBA to void. No untoward events, and Sebas slept comfortably between care. Action List Encourage PO intake - Dysphagia soft diet. 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 Mentation continues to improve ??? Conversant and follows commands ??? Mobilizes well to shower and chair ROS: Otherwise negative Active Hospital Problems Diagnosis ??? Catatonia Resolved Hospital Problems No resolved problems to display. PMH Active Non-Hospital Problems Diagnosis ??? Altered mental status ??? Obtundation ??? Bipolar I disorder, most recent episode (or current) manic, moderate Inpatient Medications: Scheduled ??? LORazepam 1 mg Oral TID Or ??? midazolam (PF) 2 mg Intravenous TID ??? OLANZapine 2.5 mg Oral Nightly ??? fluticasone propionate 2 spray Each Nare Daily ??? sodium chloride 2 spray Each Nare BID ??? aspirin 81 mg Oral Daily ??? buPROPion SR 100 mg Oral BID ??? mirtazapine 45 mg Oral Nightly ??? tamsulosin 0.4 mg Oral Nightly ??? thiamine 100 mg Oral Daily ??? sodium chloride 0.9 % (flush) 5 mL Intravenous BID ??? enoxaparin 40 mg Subcutaneous Nightly ??? melatonin 3 mg Oral Nightly Continuous infusions: PRN: LORazepam, albuteroL, polyethylene glycoL, senna-docusate, sodium chloride 0.9 % (flush), lidocaine, acetaminophen Objective Physical Exam Vitals Range last 24 hrs Temperature Temp: [36.4 ??C (97.6 ??F)-36.9 ??C (98.4 ??F)] Heart Rate Heart Rate: [61-85] Blood Pressure BP: (108-137)/(62-81) Respiratory Rate Resp: [15-18] SpO2 SpO2: [92 %-97 %] Patient Vitals for the past 24 hrs: Temp Heart Rate From SP02 Pulse Resp BP SpO2 O2 Device 12/17/21 1116 -- -- -- -- -- -- RA 12/17/21 1331 36.4 ??C (97.6 ??F) 83 bpm 85 18 137/81 92 % 12/17/21 1429 -- 83 bpm -- -- -- 93 % -- 12/17/21 2008 36.8 ??C (98.2 ??F) 63 bpm 63 15 111/62 97 % 12/18/21 0601 36.9 ??C (98.4 ??F) 60 bpm 61 16 109/62 95 % 12/18/21 0744 36.6 ??C (97.9 ??F) 63 bpm -- 16 108/68 96 % RA Intake/Output Summary (Last 24 hours) at 12/18/2021 1100 Last data filed at 12/18/2021 0600 Gross per 24 hour Intake 1480 ml Output -- Net 1480 ml Physical Exam Constitutional: General: He is awake. He is not in acute distress. Cardiovascular: Rate and Rhythm: Normal rate and regular rhythm. Heart sounds: Normal heart sounds. Pulmonary: Effort: No respiratory distress. Breath sounds: Normal breath sounds. No stridor. No wheezing, rhonchi or rales. Abdominal: General: Abdomen is flat. Bowel sounds are normal. There is no distension. Palpations: Abdomen is soft. Neurological: Mental Status: He is alert and easily aroused. Psychiatric: Mood and Affect: Affect normal. Behavior: Behavior is cooperative. Comments: Improved mood, communicates well. Studies reviewed in eDH. Remarkable for the following: LABS: Lab Results Component Value Date WBC 10.0 (H) 12/18/2021 HGB 14.1 12/18/2021 HCT 42.7 12/18/2021 MCV 91.8 12/18/2021 PLATELET 306 12/18/2021 Lab Results Component Value Date NA 140 12/18/2021 K 3.5 12/18/2021 CL 109 (H) 12/18/2021 CO2 21 (L) 12/18/2021 BUN 10 12/18/2021 CREATININE 1.18 12/18/2021 GLUCOSE 96 12/18/2021 CALCIUM 8.6 12/18/2021 ESTGFR 66 12/18/2021 MICRO: No results for input(s): URINECULTURE in the last 720 hours. No results for input(s): GRAMSTAIN, BFCX, LOWERRESPCX, TISSUECX in the last 720 hours. No results for input(s): BLOODCX in the last 720 hours. ECG: Recent Labs 12/10/21 0405 DIAGLINE Sinus rhythm with 1st degree A-V block Left bundle branch block Abnormal ECG When compared with ECG of 08-DEC-2021 17:16, MO interval has increased T wave inversion now evident in Inferior leads T wave inversion more evident in Lateral leads I personally reviewed the tracing and edited the fellows interpretation Confirmed by fellow MD Daily Andrew ([id number]) on 12/10/2021 1:40:27 PM Confirmed by Marge Torres ([id number]) on 12/10/2021 1:53:13 PM QTCCALC 486 IMAGING: NA OTHER Studies: NA Assessment & Plan Assessment and Plan: Sebas Shepherd .??is a 71 y.o.??male??with past medical history of HTN, DLP, BPH, dementia, bipolar disorder who presented with altered mental status. ?? Overall improved mentation, mood and mobility. Hemodynamically stable As per psych recs, will not make any modifications with psych medications at this time. They state his can't take care of him and that after he is discharged to SNF will need LTC. This process hasalready been initiated.? Summary of plan with changes for 12/18/2021: No changes ?? # Probable catatonia # Acute delirium, improving - psych input appreciated - scheduled ativan 1 mg PO TID, IV versed if patient refuses oral route. - continue olanzapine 2.5 mg QHS (started 12/15) - r/o metabolic/ structural cause - defer MRI for now given improvement ?? #Nasal stuffiness Improved overall. Has been saturating well at 96% RA and has not voiced any concerns in this regard. Per patient's sister, his perseverance on this issue may be delusional in nature. Has apparently often made statements about being different from everyone else and needing a different kind of air to breathe. This is in context of seeing his mother from COPD and spending her last days on a vent. Nothing to suggest any pulmonary processes for Mr. Shepherd at this time. ?? -Continue Benavides Lempster - Flonase 2 sprays prn -Reassurance that he is oxygenating excellently ? #Hypernatremia, resolved Hypernatremia has resolved and now stable several days with prior interventions. Patient might have DI??(with previous lithium use)??but is compensating adequately with free water consumption. Not inclined to add HCTZ at present. - patient drinking to thirst - CTM ?? # Hypophosphatemia - Continue to monitor phos level. - will follow BMP, Phos ?? # Bipolar disorder - resume bupropion 100 mg po bid - resume mirtazapine 45 mg po hs ?? # Recent UTI and pneumonia - improving per his ?? # BPH - resume tamsulosin 0.4 mg po daily ?? Diet: Dysphagia soft Discharge planning: SNF/LTC? PT/OT/Speech: ordered Vitals/lab/FS/frequency vitals: Q6H, Labs daily Cod status: Do NOT attemtp CPR-Inpatient PCP: Jose Eduardo Barboza MD ?? Team Pager(MD Coverage 26/10): #[phone] PCP: Jose Eduardo Barboza MD [phone] Morelia Hughes 12/18/2021 Linnette Altamirano RN - 12/17/2021 5:16 PM EDT Illness Severity [x] Stable [] Watcher [] Unstable Patient Summary Reason for admission: altered mental status or catatonia Relevant PMH: dementia, bipolar disorder, HTN/HLD, BPH and recent PNA/UTI Significant 24 hour events: 12/17AM: PT is AAOx4. Pt was more engaging after eating his lunch today. Pt sat on the chair and showered by OT this afternoon. Pt verbalizes feeling great. Pt denies any pain VSS. All meds given per MAR. Family at the bedside. Pt in no distress. Latosha Ellis, OT - 12/17/2021 3:10 PM EDT Occupational Therapy Treatment Note Treatment Number OT: 2 Patient Dx: Per MD note, Sebas Shepherd Jr. is a 71 y.o. male admitted on 12/08/2021 male??with past medical history of HTN, DLP, BPH, dementia, bipolar disorder who presented with altered mental status. Social History: (obtained from pt's and chart review 05/07 pt's AMS) Home Setup: Pt lives with his , daughter, LAURENCE and grandchildren in a 2 story home with 2 RAPHAEL. The pt lives on the first floor of the time. The bathroom has a tub shower with no chair or grab bars present. Functional Status: Pt had been independent with ADLs and mobility up until a few months ago. He would occasionally use a walking stick on uneven ground outside. Pt has had multiple hospitalizations over the last few months for PNA and UTIs, he was discharged on 12/04 from his most recent hospitalization. Equipment at home: FWW Fall history: Pt's reported that he had one fall about a month ago when he tripped over the sidewalk Precautions/Special Considerations: fall risk, DNR, Dysphagia soft diet with thin liquids, PIV, up with assist Interval History: Per Hospital Medicine note (12/17), - No acute events - After being seen yesterday, patient abruptly noted to be withdrawn, refusing to interact with RN, family, other providers. However, noted to wake up and eat meals and then resume non-engagement with staff. - Pt seen and examined at bedside with family present - Not responding to voice, refusing to open eyes or respond to questions - Family concerned about over medication S: Do you have shampoo? O: Patient seen for skilled OT treatment, and demonstrated the following: ?? Self-care and Functional Mobility: ?? Pt seated in recliner upon arrival. Agreeable to therapy. ?? Sit>stand from recliner to FWW with CGA. Impulsivity noted. ?? Pt ambulated from recliner to bathroom with SBA. Verbal cueing for placement of FWW to enter shower. ?? Pt stepped into shower using grab bars and CGA. ?? Stand>sit to shower chair using grab bars and SBA. ?? Pt doffed gown and socks at seated level independently. ?? Set-up A for shower, including turning on water, holding shower head occasionally, and passing needed items. ?? Verbal cueing for thoroughness- pt did not initiate washing legs. Pt completed bathing primarily at seated level, however did stand for juanita-hygiene with/without grab bar support and CGA. Pt demonstrated good balance while standing, even standing on one leg to clean feet with grab bar support. ?? Pt dried self with towels with set-up A. Donned gown with verbal cueing and donned socks independently all at seated level. ?? Sit>stand from shower chair using grab bar support. Stepped out of shower with grab bars and CGA. Pt ambulated to sink using FWW to complete grooming tasks. ?? Pt brushed teeth and brushed hair standing at sink with SBA. ?? Pt then ambulated back to recliner chair. Stand>sit to recliner with FWW and SBA. ?? Pt left in recliner with present, all needs met, call grewal within reach, and chair alarm on. ?? Cognition: ?? Behavior / Mood: alert, cooperative and flat affect ?? Alert and oriented to: did not ask orientation questions ?? Follows commands: 1 step, 2 step, 100% of the time and requires increased time ?? Attention: WFL ?? Safety awareness: impulsive ?? Vision: pt not wearing glasses, appears WFL ?? Endurance: good ?? Vitals: stable on Ra ?? Strength/ROM:BUE and BLE WFL Pain: no c/o pain Education: Pt/family/caregiver education ongoing regarding: Role of occupational therapy/rehabilitation, Transfers, ADL, Safety, Functional Mobility, Activity pacing/Energy conservation and Recommendations. Staff Communication: Patient status, treatment, and mobility recommendations discussed with nursing/other staff. ASSESSMENT: Pt seen to continue OT POC. Pt appearing more alert, cooperative, and interactive today as compared to previous OT session/attempt. Pt completed a shower with set-up A and verbal cueing forthoroughness. Pt ambulated within the room and bathroom with FWW and CGA. Pt was provided verbal cueing for managing walker. Pt continues to require cues for safety and task initiation. Pt will benefitfrom ongoing therapeutic interventions to achieve pt's and therapy goals. Equipment needs at discharge: shower chair Anticipated Discharge Disposition: swing bed rehabilitation facility, half-way facility Daily schedule / Staff Recommendations: ?? Transfer to recliner chair as appropriate with 1 A using FWW, ambulate as tolerated ?? Encourage participation in ADL's by providing set up A on tray table and physical assist only as needed ?? Promote normalcy by encouraging participation in common daily tasks & leisure activities by providing set up assist ?? Encourage use of coping & calming strategies ?? Give choices when possible to support feelings of autonomy ?? Frequent orientation verbally & visually ?? Keep glasses, hearing aides, cell phones, tablets, etc within reach ?? Facilitate a normal sleep-wake cycle ?? Provide brief, clear instruction from one source at a time ?? Reduce extraneous stimulation ?? Provide calming music, favorite TV programs, magazines or newspapers ?? Bathroom or commode for toileting needs, if appropriate Goals: To be achieved by 12/27/21. Pt will complete toileting routine including transfer to the bathroom, clothing management, and hygiene??with supervision assist and min cues. Pt will complete 2 grooming tasks standing at the sink with supervision assist??and min cues.- PROGRESSING Pt will complete LB dressing with supervision assist using AE as needed. Pt will complete functional??transfers and??mobility with supervision assist for??participation??in ADLs using self-pacing as needed and LRAD.- PROGRESSING Therapy Frequency (OT): 2-3 times/wk Total Minutes, Occupational Therapy: 27 (self-care mgmt x2- 14:29-14:56) Pager: [phone] Latosha Ellis, ELODIA 12/17/2021 Occupational Therapy Rehabilitation Department Yoko Dexter, PT - 12/17/2021 2:12 PM EDT Physical Therapy Note Treatment Number PT: 2 Patient profile: Sebas Shepherd Jr. is a 71 y.o. male with past medical history of HTN, DLP, BPH, dementia, bipolar disorder who presented with altered mental status. Interval History: pt was unresponsive when this therapist checked in this AM (did not respond to verbal stimuli or sternal rub, kept eyes closed). Much more alert and interactive this afternoon. Social History: Home set-up: lives with his , daughter, LAURENCE, and grandchildren in a 2-story home Stairs: 2 RAPHAEL main level, per pt's pt needs assistance to ascend/descend 2 steps into home Baseline Mobility: pt was independent without a device up until a few months ago, would occasionallyuse a walking stick outside. It appears pt has had multiple hospitalizations over the last few months, most recently hospitalized for PNA and UTI, discharged home 12/04. He has been complaining of R ankle pain which has limited his ability to mobilize OOB for the last ~2 weeks (x-ray negative for fracture). Equipment at home: FWW Fall history: pt's , Sisi, reports pt fell ~1 month ago, tripped over sidewalk Precautions/Special Considerations: Fall risk Mobility and Positioning Recommendations: ?? Pt is up with 1 assist and a FWW. ?? Please encourage up to chair for meal times as able. ?? Recommend ambulating to bathroom and out in hallway with staff throughout the day as able. Subjective: I'm out of my slump, sometimes I get in a slump where I don't want to do anything Objective: Patient seen for physical therapy and demonstrated the following: Pain: no c/o pain Vital Signs: stable on room air ?? Pt supine in bed on therapist arrival, agreeable to working with PT ?? Performed supine>sit with SBA, HOB elevated ?? Performed sit>stand with min A and FWW ?? Ambulated ~10ft from bed>bathroom with CGA and FWW ?? CGA for stand>sit on toilet with grab bar ?? CGA for sit>stand from toilet with FWW. Pt able to stand and perform pericare with CGA. ?? Ambulated ~10 ft from bathroom to recliner with SBA and FWW ?? Pt left in bedside recliner chair, with all needs met, with call grewal in reach and with chair alarm active and presen following visit. Education: transfers, balance, safety, PT plan of care Assessment: Sebas Shepherd Jr. was seen today for physical therapy treatment session for continuation of POC. Pt was able to ambulate to bathroom and then to bedside commode with CGA-SBA and FWW. Continue to recommend inpatient rehab at discharge to maximize independence with functional mobility. Pt will benefit from ongoing therapeutic interventions to achieve therapy goals. Discharge Recommendations: Based on the current findings, Anticipated Discharge Disposition (PT): swing bed rehabilitation facility, half-way facility when medically ready for hospital discharge. Consult Recommendations: No other consults recommended at this time. Equipment needs: Anticipated Equipment Needs at Discharge (PT): to be determined Goals: To be achieved by 12/25/21: ?? 1. Pt. to demonstrate knowledge of safety limitations and precautions and will appropriately requestassistance for functional activities and to mobilize. 2. Pt. to demonstrate understanding of appropriate exercises. 3. Pt. to perform bed mobility independently. 4. Pt. to perform all transfers with modified independence using the LRAD. 5. Pt. to ambulate 150 feet with modified independence using a the LRAD. 6. Pt. to ambulate up/down 2 step/stairs using one hand hold with min A. 7. Family or caregiver to demonstrate understanding of therapeutic interventions to support the careof the patient Plan: Therapy Frequency (PT): 2-3 times/wk for as outlined in initial evaluation. Patient agrees with plan as stated. Time IN / OUT: 4281-0693 Total Minutes, Physical Therapy: 12 Billing Code: 1 YUMIKO Dexter PT Pager: [phone] Physical Therapy Inpatient Rehabilitation Department Washington Stratton MD - 12/17/2021 1:49 PM EDT Psychiatric Inpatient Consultation Follow Up Note Time Spent: 25 Information Sources: Patient. Family. Relationship to patient: . Electronic Medical Record. This patient was discussed with Dr. Bob. See his note for confirmatory and/or revisionary documentation. Reason for consultation: Concern for Catatonia Interim History: - No acute issues overnight - Per review of MAR, patient did not receive last nights or this morning's lorazepam dose - Patient non-verbal and non-interactive on interview this morning - reports patient was able to open eyes and talk to her tonight and then again this morning Review of Systems: Psychiatric: See above Extent of history Determination: Adarsh descriptors, reviewed systems, and level of history with x. HPI Descriptors 1-3 X 1-3 4 + Reviewed Systems 0 X 1 2-9 Level of Hx PF X EPF D Physical Exam: Last value Range last 24 hrs Temperature Temp: 36.4 ??C (97.6 ??F) Temp: [36.4 ??C (97.5 ??F)-36.8 ??C (98.2 ??F)] Heart Rate Heart Rate: 85 Heart Rate: [85] Blood Pressure BP: 137/81 BP: (137-141)/(76-89) Respiratory Rate Resp: 18 Resp: [16-22] SpO2 SpO2: 93 % SpO2: [92 %-95 %] Mental Status Evaluation: Musculoskeletal System: Muscle Strength/Tone (note atrophy, abnormal movements): No cogwheeling noted today . Normal bulk. Gait and Station: Deferred Psychiatric: Patient with eyes closed and head turned towards right. Throughout interview eyes would crack spontaneously, but when this was noted by myself, patient would subsequently quickly close his eyes. He actively closed his eyes to prevent me from opening them. Immediately after I left the room, the patient's came to find me and told me he opened his eyesand asked for water. When I came back in the room he was looking forward with eyes open, but as I approached he closed his eyes and turned his head towards the right. He again was not interactive with me. ?? Appearance: older than stated age and disheveled ?? Behavior: psychomotor retardation and poor eye contact ?? Speech: paucity ?? Language: Not communicative, unable to assess ?? Mood: Flat ?? Affect: flat ?? Thought Process: Not able to assess ?? Associations: Unable to assess ?? Thought Content: Unable to assess ?? Perception: Unable to assess ?? Orientation: Unable to assess ?? Attention/Concentration: unable to attend interview ?? Cognition: Unable to assess ?? Memory: Unable to assess ?? Fund of Knowledge: Unable to assess ?? Insight: Unable to assess ?? Judgment: Unable to assess Rodríguez-Darshan Catatonia Rating Scale: Use presence or absence of items 1-14 for screening Use the 0-3 scale for items 1-23 to rate severity. 1) Excitement: Extreme hyperactivity, constant motor unrest which is apparently non-purposeful. Not to be attributed to akathisia or goal directed agitation 0 = Absent 2) Immobility/stupor: Extreme hypoactivity, immobile, minimally responsive to stimuli 1 = Sits abnormally still, may interact briefly 3) Mutism: Verbally unresponsive or minimally responsive 3 = No speech 4) Staring:Fixed gaze, little or no visual scanning of environment, decreased blinking. 1= Poor eye contact, repeatedly gazes less than 20 seconds between shifting of attention; decreased blinking. 5) Posturing/catalepsy: Spontaneous maintenance of posture(s), including mundane (e.g. setting or standing for long periods without reacting) 0 = Absent 6) Grimacing: Maintenance of odd facial expressions. 0 = Absent 7) Echopraxia/echolalia: Mimicking of examiner's movements/speech. 0 = No mimicking of examiner's movements/speech 8) Stereotypy: Repetitive, non goal-directed motor activity (e.g. Finger-play; repeatedly touching, patting or rubbing self); abnormality not inherent in act but in frequency. 0 = Absent 9) Mannerisms: Odd, purposeful movements (hopping or walking tiptoe, saluting passers-by or exaggerated caricatures of mundane movements); abnormality inherent in act itself. 0 = Absent 10) Verbigeration: Repetition of phrases or sentences (like a scratched record). 0 = Absent 11) Rigidity: Maintenance of a rigid position despite efforts to be moved, exclude if cog-wheeling or tremor present. 0 = Absent 12) Negativism: apparently motiveless resistance to instructions or attempts to move/examine patient. Contrary behavior, does exact opposite of instruction: 1 = Mild resistance and/or occasionally contrary 13) Waxy Flexibility: During reposturing of patient, patient offers initial resistance before allowing himself to be repositioned, similar to that of a bending candle 0 = Absent 14) Withdrawal: Refusal to eat, drink and/or make eye contact 1 = Minimal PO intake/interaction for less than 1 day 15) impulsivity: Patient suddenly engages in inappropriate behavior (e.g. Runs down hallway, starts screaming or takes off clothes) without provocation. Afterwards can give no, or only a facile explanation 0 = Absent 16) Automatic Obedience: Exaggerated cooperation with examiner's request or spontaneous continuationof movement requested. 0 = Absent 17) [place]: Anglepoise lamp arm raising in response to light pressure of finger, despite instruction to the contrary. 0 = Absent 18) [place]: Resistance to passive movement which is proportional to strength of the stimulus, appears automatic rather than willful. 0 = Absent 19) Ambitendnecy: Patient appears motorically stuck in indecisive, hesitant movement. 0 = Absent 20) Grasp Reflex: Per neurological exam. 0 = Absent 21) Perseveration: Repeatedly returns to same topic or persists with movement. 0 = Absent 22) Combativeness: Usually in an undirected manner, with no, or only a facile explanation afterwards. 0 = Absent 23) Autonomic abnormality [place]: Temperature, BP, Pulse, Respiratory rate, diaphoresis 0 = Absent Total 1-14: 7 Total: 7 Pertinent Diagnostic Testing: No new tests for review Extent of Exam Determination: Adarsh completed bullets & level of exam with ? X? Bullets Completed 1-5 6-8 X 9+ Level of Exam PF EPF X D Assessment: The patient is a 71-year-old gentleman with past medical history of bipolar disorder, presumed dementia, and suspected recent catatonia who presented [facility] with progressively altered mental status as well as concern for catatonia recurrence. 12/17/2021 Waxing and Waning status with relatively abrupt changes from questionably catatonic to interactive and speaking when no medical staff present. 2x consecutive doses of lorazepam held in past 24 hours, although patient was charted as taking other PO medications at the same time. Would recommend ensuringpatient is receiving PO lorazepam as a priority, and if he is not, primary team should be contacted and this should be re-attempted, with IV midazolam given as a second line. Would not change anything now as the patient's behavior is not clearly consistent with worsening catatonia and he had not received benzodiazepines for 2 of the last 3 scheduled doses. Primary Diagnosis: Suspected Catatonia Plan/Recommendations: - Continue olanzapine 2.5 mg PO QHS - Continue lorazepam 1 mg PO TID, this should be given as a priority and should not be marked as refused without attempting atleast 2x, would give midazolam IV/IM as a second line if unable to tolerate lorazepam. - Continue to assess clinical response to current course of treatment. Patient on IEA Status? IEA: NO, patient is not on IEA, but decision making capacity may require reassessment by psychiatry if patient attempts to leave AMA. Recommendations were communicated to primary swat team member Dr. Almaraz @ #[phone]. Washington Stratton MD 12/17/2021 Coding Determination Complexity of MDM Determination: Adarsh appropriate # of Dx, Amt, complexity of date, Risk, & corresponding level of MDM with x. 2 out of 3 elements in row must be met to qualify. # of Possible Diagnoses or Management Options Amount and/or Complexity of Data Risk of Complications, Morbidity, and or Mortality Type of Decision Making Minimal Minimal/None Minimal Straightforward Limited Limited Low Low Multiple Moderate Moderate Moderate X Extensive X Extensive X High X High Subsequent Hospital Day Service Code Determination: Adarsh Hx, Exam, MDM & SALVATORE/CPT Code with x. 2 out of # hernandez components in the row must be met to qualify. HISTORY EXAM MDM SALVATORE/CPT CODE PF PF Straightforward/Low 3005/64294 X EPF EPF Moderate X 3015/79847 D X D X High 3025/26480 Associated attestation - Mayco Bob MD - 12/19/2021 1:35 PM EDT Psychiatry Attending Note I discussed this patient's situation with the resident but did not see the patient. I contributed tothe formulation and treatment planning as documented in the resident's note. Mayco Bob MD Psychiatry Consultation Pager: [phone] Kei Tadeo RN - 12/17/2021 1:14 PM EDT Illness Severity [x] Stable [] Watcher [] Unstable Patient Summary Reason for admission: altered mental status or catatonia Relevant PMH: dementia, bipolar disorder, HTN/HLD, BPH and recent PNA/UTI Significant 24 hour events: 12/16AM: Pt A&Ox4 at start of shift, until 1130am, when OT came to work with him, and he was found to be non responsive, however VSS. Pt did not respond to painful stimulus, eyes tightly closed. Charge nurse Hanna assessed, continued to monitor. Approx 1 hr later, when lunch tray arrived, patient woke up and was somewhat more interactive and ate lunch. After lunch, patient slept until 1700, soscheduled ativan was given late. Patient denies pain, numbness/tingling, shob. & sister visiting during most of shift. Pt asked for urinal at beginning of shift, but incontinent later in the day. Linens, gown, brief changed. Morelia Hughes - 12/17/2021 12:30 PM EDT Hospital Medicine Attending Daily Progress Note Admit Date: 12/08/2021 Hospital Day 7 days Subjective Interval History: Patient was somnolent during encounter today. reports he has not spoken at all this morning. Hewas not interactive during encounter. ROS: Otherwise negative Active Hospital Problems Diagnosis ??? Catatonia Resolved Hospital Problems No resolved problems to display. PMH Active Non-Hospital Problems Diagnosis ??? Altered mental status ??? Obtundation ??? Bipolar I disorder, most recent episode (or current) manic, moderate Inpatient Medications: Scheduled ??? OLANZapine 2.5 mg Oral Nightly ??? fluticasone propionate 2 spray Each Nare Daily ??? sodium chloride 2 spray Each Nare BID ??? LORazepam 1 mg Oral TID ??? aspirin 81 mg Oral Daily ??? buPROPion SR 100 mg Oral BID ??? mirtazapine 45 mg Oral Nightly ??? tamsulosin 0.4 mg Oral Nightly ??? thiamine 100 mg Oral Daily ??? sodium chloride 0.9 % (flush) 5 mL Intravenous BID ??? enoxaparin 40 mg Subcutaneous Nightly ??? melatonin 3 mg Oral Nightly Continuous infusions: PRN: LORazepam, albuteroL, polyethylene glycoL, senna-docusate, sodium chloride 0.9 % (flush), lidocaine, acetaminophen Objective Physical Exam Vitals Range last 24 hrs Temperature Temp: [36.4 ??C (97.5 ??F)-36.8 ??C (98.3 ??F)] Heart Rate Heart Rate: [72-85] Blood Pressure BP: (128-141)/(76-89) Respiratory Rate Resp: [16-22] SpO2 SpO2: [94 %-97 %] Patient Vitals for the past 24 hrs: Temp Heart Rate From SP02 Pulse Resp BP SpO2 O2 Device 12/16/21 1346 36.8 ??C (98.3 ??F) 70 bpm 72 18 128/79 97 % RA 12/16/21 2001 36.8 ??C (98.2 ??F) 71 bpm -- 16 140/89 95 % RA 12/17/21 0410 36.4 ??C (97.5 ??F) 62 bpm -- 22 139/76 94 % RA 12/17/21 0753 36.8 ??C (98.2 ??F) 78 bpm 85 18 141/81 95 % RA 12/17/21 1116 -- -- -- -- -- -- RA Intake/Output Summary (Last 24 hours) at 12/17/2021 1230 Last data filed at 12/16/2021 2200 Gross per 24 hour Intake 2230 ml Output -- Net 2230 ml Physical Exam Constitutional: General: He is sleeping. HENT: Head: Normocephalic and atraumatic. Cardiovascular: Rate and Rhythm: Normal rate and regular rhythm. Pulmonary: Effort: Pulmonary effort is normal. Breath sounds: Normal breath sounds. Psych: Unable to assess Studies reviewed in eDH. Remarkable for the following: LABS: Lab Results Component Value Date WBC 8.8 12/17/2021 HGB 14.5 12/17/2021 HCT 42.8 12/17/2021 MCV 91.8 12/17/2021 PLATELET 315 12/17/2021 Lab Results Component Value Date NA 139 12/17/2021 K 4.1 12/17/2021 CL 107 12/17/2021 CO2 22 12/17/2021 BUN 7 (L) 12/17/2021 CREATININE 1.02 12/17/2021 GLUCOSE 92 12/17/2021 CALCIUM 8.9 12/17/2021 ESTGFR 79 12/17/2021 MICRO: No results for input(s): URINECULTURE in the last 720 hours. No results for input(s): GRAMSTAIN, BFCX, LOWERRESPCX, TISSUECX in the last 720 hours. No results for input(s): BLOODCX in the last 720 hours. ECG: Recent Labs 12/10/21 0405 DIAGLINE Sinus rhythm with 1st degree A-V block Left bundle branch block Abnormal ECG When compared with ECG of 08-DEC-2021 17:16, MO interval has increased T wave inversion now evident in Inferior leads T wave inversion more evident in Lateral leads I personally reviewed the tracing and edited the fellows interpretation Confirmed by fellow MD Daily Andrew ([id number]) on 12/10/2021 1:40:27 PM Confirmed by Marge Torres ([id number]) on 12/10/2021 1:53:13 PM QTCCALC 486 IMAGING: N/A OTHER Studies: N/A Assessment & Plan Assessment and Plan: Sebas Shepherd Jr. is a 71 y.o. male with past medical history of HTN, DLP, BPH, dementia, bipolar disorder who presented with altered mental status. Patient overnight presented with worsened withdrawn behavior and somnolence. He was able to speak inshort sentences 1 day ago after restarting low dose olanzapine 2.5mg but has since fluctuated in behavior throughout the day. Patient's behavioral change likely due to not having received 2 doses of ativan ?? Discussed at bedside with patient's and sister. They state his can't take care of him and that after he is discharged to SNF will need LTC. This process has already been initiated. Summary of plan with changes for 12/17/2021: Emphasized need for patient to receive oral ativan. IV versed if patient absolutely refuses oral intake. # Probable catatonia # Acute delirium, improving - psych input appreciated - scheduled ativan 1 mg PO TID - continue olanzapine 2.5 mg QHS (started 12/15) - r/o metabolic/ structural cause - defer MRI for now given improvement ?? #Nasal stuffiness Per patient's sister, his perseverance on this issue may be delusional in nature. Has apparently often made statements about being different from everyone else and needing a different kind of air to breathe. This is in context of seeing his mother from COPD and spending her last days on a vent. Nothing to suggest any pulmonary processes for Mr. Shepherd at this time. ?? -Continue Benavides Lempster -Add Flonase 2 sprays daily -Encourage warm shower today -Reassurance that he is oxygenating excellently ? #Hypernatremia, resolved Hypernatremia has resolved and now stable several days with prior interventions. Patient might have DI (with previous lithium use) but is compensating adequately with free water consumption. Not inclined to add HCTZ at present. - patient drinking to thirst - CTM ?? # Hypophosphatemia, rseolved - s/p potassium phosphate??IV with improvement, now above normal range; d/c scheduled PO phos - will follow BMP, Phos ? # Bipolar disorder - resume bupropion 100 mg po bid - resume mirtazapine 45 mg po hs ?? # Recent UTI and pneumonia - improving per his ?? # BPH - resume tamsulosin 0.4 mg po daily ?? Diet: Dysphagia soft Discharge planning: SNF/LTC? PT/OT/Speech: ordered Vitals/lab/FS/frequency vitals: Q6H, Labs daily Cod status: Do NOT attemtp CPR-Inpatient PCP: Jose Eduardo Barboza MD Team Pager(MD Coverage 26/10): #[phone] PCP: Jose Eduardo Barboza MD [phone] Morelia Hughes 12/17/2021 Joseph Almaraz MD - 12/17/2021 7:25 AM EDT Images from the original note were not included. Hospital Medicine Attending Daily Progress Note Admit Date: 12/08/2021 ( Hospital Day 7 days ) Active Hospital Problems Diagnosis ??? Catatonia Resolved Hospital Problems No resolved problems to display. ASSESSMENT: Sebas Shepherd Jr. is a 71 y.o. male with past medical history of HTN, DLP, BPH, dementia, bipolar disorder who presented with altered mental status. Since discussion of upcoming disposition that took place on 12/16, patient abruptly with change in demeanor. Now non-communicative, refusing to look at members of team. Remains AF and HDS. Consider worsening of catatonia versus possibly behavioral issues vs delirium. Note that olanzapine was started night prior to this change but at low dose and hard to argue that alone would cause such an abrupt change. Also doesn't fit with him being able to wake up and eat and then go back to being non- interactive. Will continue to discuss with Psychiatry today, potentially stopping the olanzapine vs increasing the BZD. Per discussions with family, they state his can't take care of him at home and that after he isdischarged to SNF will need LTC. This process has already been initiated. PLAN: # Probable catatonia # Acute delirium, improving Discuss new developments / behaviors today. Possibly d/c the olanzapine vs increase Ativan vs other measures. - psych input appreciated - scheduled ativan 1 mg PO TID - continue olanzapine 2.5 mg QHS (started 12/15) - r/o metabolic/ structural cause - defer MRI for now given improvement #Nasal stuffiness Per patient's sister, his perseverance on this issue may be delusional in nature. Has apparently often made statements about being different from everyone else and needing a different kind of air to breathe. This is in context of seeing his mother from COPD and spending her last days on a vent. Nothing to suggest any pulmonary processes for Mr. Shepherd at this time. -Continue Benavides [place]pster -Add Flonase 2 sprays daily -Encourage warm shower today -Reassurance that he is oxygenating excellently ?? #Hypernatremia, resolved Hypernatremia has resolved and now stable several days with prior interventions. Patient might have DI (with previous lithium use) but is compensating adequately with free water consumption. Not inclined to add HCTZ at present. - patient drinking to thirst - CTM # Hypophosphatemia, resolved - will follow BMP, Phos ? # Bipolar disorder - resume bupropion 100 mg po bid - resume mirtazapine 45 mg po hs ?? # Recent UTI and pneumonia, resolved ?? # BPH - resume tamsulosin 0.4 mg po daily Diet Dysphagia Soft Diet 60 gm Protein; 2 GM NA Discharge planning SNF --> ? LTC PT/OT/Speech Ordered Lines/Access none Funk catheter No DVT/GI Prophylaxis Lovenox Vital/lab/FS frequency Vitals Q6H, Labs Qdaily Code status Do NOT Attempt CPR - Inpatient Family Sisi Shepherd (spouse) [phone] PCP Jose Eduardo Barboza MD [phone] Attestation IPI Certification I certify that I am a [facility] credentialed attending provider with admitting privileges and that the patient meets or has met medical necessity to require an inpatient IPI level of care meeting a minimum of two midnights or is on the [facility] inpatient only procedure list (status C) due to: catatonia Team (26/10 Coverage) [phone] PCP: MD El Camejo MD [facility] 12/17/2021 Subjective/24hr events: - No acute events - After being seen yesterday, patient abruptly noted to be withdrawn, refusing to interact with RN, family, other providers. However, noted to wake up and eat meals and then resume non-engagement with staff. - Pt seen and examined at bedside with family present - Not responding to voice, refusing to open eyes or respond to questions - Family concerned about over medication ROS: unable to obtain Vitals: Last value Range last 24 hrs Temperature Temp: 36.8 ??C (98.2 ??F) Temp: [36.4 ??C (97.5 ??F)-36.8 ??C (98.3 ??F)] Heart Rate Heart Rate: 85 Heart Rate: [72-85] Blood Pressure BP: 141/81 BP: (128-141)/(76-89) Respiratory Rate Resp: 18 Resp: [16-22] SpO2 SpO2: 95 % SpO2: [94 %-97 %] Intake/Output Summary (Last 24 hours) at 12/17/2021 1106 Last data filed at 12/16/2021 2200 Gross per 24 hour Intake 2230 ml Output -- Net 2230 ml EXAM GEN: Lying in bed comfortably, NAD, on RA, breathing comfortably. Refusing to open eyes or interact with examiner HEENT: Anicteric, no conjunctival pallor, EOMI, PERRL; dry mucosa in nares CVS: RRR, S1+S2+no added sounds CHEST: CTABL, no added sounds ABD: Soft, ND/NT, BS+ron NEURO: not responding to questions, not following commands PSYCH: unable to assess EXT: No edema. Mild cogwheel rigidity. Mild resting tremors. SKIN: No rash or open wounds LABS: Reviewed in eDH. Remarkable for the following: Recent Labs 12/17/2142512/16/2142912/15/21421 WBC 8.8 9.2 8.5 HGB 14.5 14.5 14.0 HCT 42.8 43.7 41.3 PLATELET 315 286 290 Recent Labs 12/17/21 0857 12/17/216 12/16/2142912/15/21421 NA -- 139 142 142 K 4.1 Not Perf 3.5 3.7 CL -- 107 108* 109* CO2 -- BUN -- 7* 6* 7* CREATININE -- 1.02 1.08 1.10 GLUCOSE -- 92 84 82 CALCIUM -- 8.9 8.6 8.9 MAGNESIUM -- -- 0.71 -- PHOS -- 2.6 2.6 2.7 No results for input(s): AST, ALT, ALKPHOS, BILITOT, BILIDIR in the last 72 hours. MICRO: No results for input(s): URINECULTURE in the last 720 hours. No results for input(s): BLOODCX in the last 720 hours. COVID 19 PCR : Microbiology Results (Last 30 days) No results found for the last 720 hours. STUDIES: Results for orders placed or performed during the hospital encounter of 12/08/21 XR Ankle Min 3 views Right (Generic) (Exam End: 12/08/2021 4:25 PM) Impression No acute fracture or malalignment of the RIGHT ankle. I have personally reviewed the image(s) and the resident's interpretation and agree with the findings, Aye Serra MD at 12/08/2021 5:05 PM Thank you for letting us participate in the care of this patient. If you are a health care provider and have any questions regarding this report, please contact the number below. For patients who have questions please contact the health child care assistant that requested your imaging first. Chest One View (Exam End: 12/10/2021 4:32 AM) Impression No acute cardiopulmonary findings. Preliminary report signed by: Kailash More at 12/10/2021 4:43 AM I have personally reviewed the image(s) and the resident's interpretation and agree with the findings, Katharine Ferreira MD at 12/10/2021 4:59 AM Thank you for letting us participate in the care of this patient. If you are a health care provider and have any questions regarding this report, please contact the number below. For patients who have questions please contact the health child care assistant that requested your imaging first. Electronically signed by: Katharine Ferreira MD, [facility] ([phone]), at 12/10/2021 4:59 AM Medications: Scheduled Meds: ??? OLANZapine 2.5 mg Oral Nightly ??? fluticasone propionate 2 spray Each Nare Daily ??? sodium chloride 2 spray Each Nare BID ??? LORazepam 1 mg Oral TID ??? aspirin 81 mg Oral Daily ??? buPROPion SR 100 mg Oral BID ??? mirtazapine 45 mg Oral Nightly ??? tamsulosin 0.4 mg Oral Nightly ??? thiamine 100 mg Oral Daily ??? sodium chloride 0.9 % (flush) 5 mL Intravenous BID ??? enoxaparin 40 mg Subcutaneous Nightly ??? melatonin 3 mg Oral Nightly Continuous Infusions: PRN Meds:.LORazepam, albuteroL, polyethylene glycoL, senna-docusate, sodium chloride 0.9 % (flush), lidocaine, acetaminophen Yadira Latif RN - 12/17/2021 5:07 AM EDT Illness Severity [x] Stable [] Watcher [] Unstable Patient Summary Reason for admission: altered mental status or catatonia Relevant PMH: dementia, bipolar disorder, HTN/HLD, BPH and recent PNA/UTI Significant 24 hour events: 12/16 PM: Pt was lethargic, A/O x1-- to self only. Flat affect and non-engaging with staff. Afebrile,VSS on RA. No c/o pain. Scheduled medications given per Jun. Incontinence care provided as needed. At 0520, lab called to notify this RN, that the potasium level drawn at 0426 was hemolyzed. MD notified and new order placed for an additional potassium draw. Pt rested in between nursing care. Chemo plan & supportive medication: N/A Baseline Weight: 73 kg Most recent weight: 73 kg Action List Encourage PO intake - Dysphagia soft diet. 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 Family. Relationship to patient: . Electronic Medical Record. This patient was discussed with Dr. Bob. See his note for confirmatory and/or revisionary documentation. Reason for consultation: Concern for Catatonia Interim History: - Reported improvement in delusion regarding asphyxia overnight and into this morning. 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 Per family and nursing, patient became withdrawn after this and reported to his he was afraid of asphyxiating again. He improved around lunch enough to take good PO intake for lunch and then after lunch resumed a withdrawn state. - On interview today he is non-communicative, and made initial eye contact when I entered the room but did not interact with me past this. - Afebrile, vital signs stable. Review of Systems: Psychiatric: See above Extent of history Determination: Adarsh descriptors, reviewed systems, and level of history with x. HPI Descriptors 1-3 X 1-3 4 + Reviewed Systems 0 X 1 2-9 Level of Hx PF X EPF D Physical Exam: Last value Range last 24 hrs Temperature Temp: 36.8 ??C (98.3 ??F) Temp: [36.8 ??C (98.2 ??F)-36.9 ??C (98.4 ??F)] Heart Rate Heart Rate: 72 Heart Rate: [65-72] Blood Pressure BP: 128/79 BP: (103-128)/(55-79) Respiratory Rate Resp: 18 Resp: [16-18] SpO2 SpO2: 97 % SpO2: [94 %-98 %] Mental Status Evaluation: Musculoskeletal System: Muscle Strength/Tone (note atrophy, abnormal movements): Mild cogwheeling noted bilaterally. Normal bulk. Gait and Station: Deferred Psychiatric: Overall patient was withdrawn and non-verbal. He initially had his eyes open spontaneously when I entered the room and made fleeting eye contact. Since that time, he had kept his head down and eyes closed. Hands were crossed. He did not respond to any questions. He allowed examination, which revealed subtle bilateral cogwheeling. No waxy flexibility. No tremors noted. Negativism evident on exam, would actively close eyes against examiner. ?? Appearance: older than stated age and disheveled ?? Behavior: psychomotor retardation and poor eye contact ?? Speech: paucity ?? Language: Not communicative, unable to assess ?? Mood: Flat ?? Affect: flat ?? Thought Process: Not able to assess ?? Associations: Unable to assess ?? Thought Content: Unable to assess ?? Perception: Unable to assess ?? Orientation: Unable to assess ?? Attention/Concentration: unable to attend interview ?? Cognition: Unable to assess ?? Memory: Unable to assess ?? Fund of Knowledge: Unable to assess ?? Insight: Unable to assess ?? Judgment: Unable to assess Rodríguez-Darshan Catatonia Rating Scale: Use presence or absence of items 1-14 for screening Use the 0-3 scale for items 1-23 to rate severity. 1) Excitement: Extreme hyperactivity, constant motor unrest which is apparently non-purposeful. Not to be attributed to akathisia or goal directed agitation 0 = Absent 2) Immobility/stupor: Extreme hypoactivity, immobile, minimally responsive to stimuli 1 = Sits abnormally still, may interact briefly 3) Mutism: Verbally unresponsive or minimally responsive 3 = No speech 4) Staring:Fixed gaze, little or no visual scanning of environment, decreased blinking. 1= Poor eye contact, repeatedly gazes less than 20 seconds between shifting of attention; decreased blinking. 5) Posturing/catalepsy: Spontaneous maintenance of posture(s), including mundane (e.g. setting or standing for long periods without reacting) 0 = Absent 6) Grimacing: Maintenance of odd facial expressions. 0 = Absent 7) Echopraxia/echolalia: Mimicking of examiner's movements/speech. 0 = No mimicking of examiner's movements/speech 8) Stereotypy: Repetitive, non goal-directed motor activity (e.g. Finger-play; repeatedly touching, patting or rubbing self); abnormality not inherent in act but in frequency. 0 = Absent 9) Mannerisms: Odd, purposeful movements (hopping or walking tiptoe, saluting passers-by or exaggerated caricatures of mundane movements); abnormality inherent in act itself. 0 = Absent 10) Verbigeration: Repetition of phrases or sentences (like a scratched record). 0 = Absent 11) Rigidity: Maintenance of a rigid position despite efforts to be moved, exclude if cog-wheeling or tremor present. 0 = Absent 12) Negativism: apparently motiveless resistance to instructions or attempts to move/examine patient. Contrary behavior, does exact opposite of instruction: 1 = Mild resistance and/or occasionally contrary 13) Waxy Flexibility: During reposturing of patient, patient offers initial resistance before allowing himself to be repositioned, similar to that of a bending candle 0 = Absent 14) Withdrawal: Refusal to eat, drink and/or make eye contact 1 = Minimal PO intake/interaction for less than 1 day 15) impulsivity: Patient suddenly engages in inappropriate behavior (e.g. Runs down hallway, starts screaming or takes off clothes) without provocation. Afterwards can give no, or only a facile explanation 0 = Absent 16) Automatic Obedience: Exaggerated cooperation with examiner's request or spontaneous continuationof movement requested. 0 = Absent 17) [place]: Anglepoise lamp arm raising in response to light pressure of finger, despite instruction to the contrary. 0 = Absent 18) [place]: Resistance to passive movement which is proportional to strength of the stimulus, appears automatic rather than willful. 0 = Absent 19) Ambitendnecy: Patient appears motorically stuck in indecisive, hesitant movement. 0 = Absent 20) Grasp Reflex: Per neurological exam. 0 = Absent 21) Perseveration: Repeatedly returns to same topic or persists with movement. 0 = Absent 22) Combativeness: Usually in an undirected manner, with no, or only a facile explanation afterwards. 0 = Absent 23) Autonomic abnormality [place]: Temperature, BP, Pulse, Respiratory rate, diaphoresis 0 = Absent Total 1-14: 7 Total: 7 Pertinent Diagnostic Testing: No new tests for review Extent of Exam Determination: Adarsh completed bullets & level of exam with ? X? Bullets Completed 1-5 6-8 X 9+ Level of Exam PF EPF X D Assessment: The patient is a 71-year-old gentleman with past medical history of bipolar disorder, presumed dementia, and suspected recent catatonia who presented [facility] with progressively altered mental status as well as concern for catatonia recurrence. 12/16/2021 Home olanzapine was started at low dose, 2.5mg PO QHS. Reported clinical improvement overnight and this morning by primary team, bedside nursing team, and family. Reportedly after rounds patient becamemore withdrawn; however he was able to eat and feed himself for lunch. Unclear etiology for these changes. Olanzapine with concomitant dopaminergic blockade was restarted yesterday so this clinical change could represent worsening catatonia; however the transient nature of the changes (better overnight then worse then better for lunch then worse again) argues against this. Of note, when he was interactive, family and medical team felt he overall seemed less preoccupied by his asphyxia delusion, although this is uncertain. At this time, given the relative low dose of the medication and lack of a clear reason to change, would recommend continuing current course of care and monitoring clinical status. Could consider changing olanzapine if clinical withdrawal continues or worsens. Primary Diagnosis: Suspected Catatonia Plan/Recommendations: - Continue olanzapine 2.5 mg PO QHS - Continue lorazepam 1 mg PO TID - Continue to assess clinical response to current course of treatment. Patient on IEA Status? IEA: NO, patient is not on IEA, but decision making capacity may require reassessment by psychiatry if patient attempts to leave AMA. Recommendations were communicated to primary swat team member Dr. Almaraz @ #2500. Washington Stratton MD 12/16/2021 Coding Determination Complexity of MDM Determination: Adarsh appropriate # of Dx, Amt, complexity of date, Risk, & corresponding level of MDM with x. 2 out of 3 elements in row must be met to qualify. # of Possible Diagnoses or Management Options Amount and/or Complexity of Data Risk of Complications, Morbidity, and or Mortality Type of Decision Making Minimal Minimal/None Minimal Straightforward Limited Limited Low Low Multiple Moderate Moderate Moderate X Extensive X Extensive X High X High Subsequent Hospital Day Service Code Determination: Adarsh Hx, Exam, MDM & SALVATORE/CPT Code with x. 2 out of # hernandez components in the row must be met to qualify. HISTORY EXAM MDM SALVATORE/CPT CODE PF PF Straightforward/Low 3005/56737 X EPF EPF Moderate X 3015/16472 D X D X High 3025/53312 Associated attestation - Mayco Bob MD - 12/19/2021 1:35 PM EDT Psychiatry Attending Note I discussed this patient's situation with the resident but did not see the patient. I contributed tothe formulation and treatment planning as documented in the resident's note. Mayco Bob MD Psychiatry Consultation Pager: [phone] Lindsay Kemp OT - 12/16/2021 11:21 AM EDT OT Note Attempted to work with pt this morning, however pt was minimally responsive and not following commands. Pt opened eyes briefly x 2 to command but was non- responsive to noxious stimuli, verbal or tactile commands; RN made aware and in to assess pt. Pt placed in bed-chair position to promote alertness; no change in status observed. Pt appeared to be holding eyes tightly shut as RN and therapist were unable to lift eyelids. Pt's family present and reported pt has been lethargic since taking medicationsand speaking with MD's this morning, ~ 1-2 hours prior to OT visit. OT session deferred. Will attempt to follow up with pt at a later time/date as available. LINDSAY KEMP OTR/L Pager: [phone] Occupational Therapy Rehabilitation Department T Joseph Almaraz MD - 12/16/2021 7:16 AM EDT Images from the original note were not included. Hospital Medicine Attending Daily Progress Note Admit Date: 12/08/2021 ( Hospital Day 6 days ) Active Hospital Problems Diagnosis ??? Catatonia Resolved Hospital Problems No resolved problems to display. ASSESSMENT: Sebas Shepherd Jr. is a 71 y.o. male with past medical history of HTN, DLP, BPH, dementia, bipolar disorder who presented with altered mental status. No events since yesterday. Patient seems slightly improved in that he is not perseverating on nasalstuffiness and inability to breathe today. He is speaking in short sentences and following some commands and is without focal deficits. Remains on Ativan TID dosing. Was restarted on low dose QHS olanzapine last night, which might be helping. Discussed at bedside with patient's and sister. They state his can't take care of him and that after he is discharged to SNF will need LTC. This process has already been initiated. PLAN: # Probable catatonia # Acute delirium, improving - psych input appreciated - scheduled ativan 1 mg PO TID - continue olanzapine 2.5 mg QHS (started 12/15) - r/o metabolic/ structural cause - defer MRI for now given improvement #Nasal stuffiness Per patient's sister, his perseverance on this issue may be delusional in nature. Has apparently often made statements about being different from everyone else and needing a different kind of air to breathe. This is in context of seeing his mother from COPD and spending her last days on a vent. Nothing to suggest any pulmonary processes for Mr. Shepherd at this time. -Continue Benavides [place] -Add Flonase 2 sprays daily -Encourage warm shower today -Reassurance that he is oxygenating excellently ?? #Hypernatremia, resolved Hypernatremia has resolved and now stable several days with prior interventions. Patient might have DI (with previous lithium use) but is compensating adequately with free water consumption. Not inclined to add HCTZ at present. - patient drinking to thirst - CTM # Hypophosphatemia, rseolved - s/p potassium phosphate IV with improvement, now above normal range; d/c scheduled PO phos - will follow BMP, Phos ? # Bipolar disorder - resume bupropion 100 mg po bid - resume mirtazapine 45 mg po hs ?? # Recent UTI and pneumonia - improving per his ?? # BPH - resume tamsulosin 0.4 mg po daily Diet Dysphagia Soft Diet 60 gm Protein; 2 GM NA Discharge planning SNF --> ? LTC PT/OT/Speech Ordered Lines/Access none Funk catheter No DVT/GI Prophylaxis Lovenox Vital/lab/FS frequency Vitals Q6H, Labs Qdaily Code status Do NOT Attempt CPR - Inpatient Family Sisi Shepherd (spouse) [phone] PCP Jose Eduardo Barboza MD [phone] Attestation IPI Certification I certify that I am a D-H credentialed attending provider with admitting privileges and that the patient meets or has met medical necessity to require an inpatient IPI level of care meeting a minimum of two midnights or is on the [facility] inpatient only procedure list (status C) due to: catatonia Team (26/10 Coverage) 2500 PCP: MD El Camejo MD [facility] 12/16/2021 Subjective/24hr events: - Pt seen and examined at bedside - Eating breakfast when seen - Voices no complaints and does not bring up his nasal stuffiness today ROS: no chest pain, nausea or abdominal pain Vitals: Last value Range last 24 hrs Temperature Temp: 36.8 ??C (98.2 ??F) Temp: [36.6 ??C (97.9 ??F)-36.9 ??C (98.4 ??F)] Heart Rate Heart Rate: 74 Heart Rate: [56-74] Blood Pressure BP: 103/55 BP: (103-136)/(55-82) Respiratory Rate Resp: 18 Resp: [16-18] SpO2 SpO2: 97 % SpO2: [96 %-98 %] Intake/Output Summary (Last 24 hours) at 12/16/2021 0716 Last data filed at 12/15/20212025 Gross per 24 hour Intake -- Output 950 ml Net -950 ml EXAM GEN: Lying in bed comfortably, NAD, on RA, breathing comfortably, occasionally speaking in short sentences HEENT: Anicteric, no conjunctival pallor, EOMI, PERRL; dry mucosa in nares CVS: RRR, S1+S2+no added sounds CHEST: CTABL, no added sounds ABD: Soft, ND/NT, BS+ron NEURO: AAO*3, no focal deficits. PSYCH: Normal mood and affect EXT: No edema. Mild cogwheel rigidity. Mild resting tremors. SKIN: No rash or open wounds LABS: Reviewed in eDH. Remarkable for the following: Recent Labs 12/16/2142912/15/2142112/14/21419 WBC 9.2 8.5 9.2 HGB 14.5 14.0 14.1 HCT 43.7 41.3 42.4 PLATELET 286 290 288 Recent Labs 12/16/2142912/15/2142112/14/21419 NA 142 142 142 K 3.5 3.7 3.5 CL 108* 109* 111* CO2 24 22 21* BUN 6* 7* 7* CREATININE 1.08 1.10 1.04 GLUCOSE 84 82 95 CALCIUM 8.6 8.9 9.0 MAGNESIUM 0.71 -- -- PHOS 2.6 2.7 2.8 No results for input(s): AST, ALT, ALKPHOS, BILITOT, BILIDIR in the last 72 hours. MICRO: No results for input(s): URINECULTURE in the last 720 hours. No results for input(s): BLOODCX in the last 720 hours. COVID 19 PCR : Microbiology Results (Last 30 days) No results found for the last 720 hours. STUDIES: Results for orders placed or performed during the hospital encounter of 12/08/21 XR Ankle Min 3 views Right (Generic) (Exam End: 12/08/2021 4:25 PM) Impression No acute fracture or malalignment of the RIGHT ankle. I have personally reviewed the image(s) and the resident's interpretation and agree with the findings, Aye Serra MD at 12/08/2021 5:05 PM Thank you for letting us participate in the care of this patient. If you are a health care provider and have any questions regarding this report, please contact the number below. For patients who have questions please contact the health child care assistant that requested your imaging first. Chest One View (Exam End: 12/10/2021 4:32 AM) Impression No acute cardiopulmonary findings. Preliminary report signed by: Kailash More at 12/10/2021 4:43 AM I have personally reviewed the image(s) and the resident's interpretation and agree with the findings, Katharine Ferreira MD at 12/10/2021 4:59 AM Thank you for letting us participate in the care of this patient. If you are a health care provider and have any questions regarding this report, please contact the number below. For patients who have questions please contact the health child care assistant that requested your imaging first. Electronically signed by: Katharine Ferreira MD, [facility] ([phone]), at 12/10/2021 4:59 AM Medications: Scheduled Meds: ??? OLANZapine 2.5 mg Oral Nightly ??? fluticasone propionate 2 spray Each Nare Daily ??? sodium chloride 2 spray Each Nare BID ??? LORazepam 1 mg Oral TID ??? aspirin 81 mg Oral Daily ??? buPROPion SR 100 mg Oral BID ??? mirtazapine 45 mg Oral Nightly ??? tamsulosin 0.4 mg Oral Nightly ??? thiamine 100 mg Oral Daily ??? sodium chloride 0.9 % (flush) 5 mL Intravenous BID ??? enoxaparin 40 mg Subcutaneous Nightly ??? melatonin 3 mg Oral Nightly Continuous Infusions: PRN Meds:.LORazepam, albuteroL, polyethylene glycoL, senna-docusate, sodium chloride 0.9 % (flush), lidocaine, acetaminophen Yadira Latif RN - 12/16/2021 5:35 AM EDT Illness Severity [x] Stable [] Watcher [] Unstable Patient Summary Reason for admission: altered mental status or catatonia Relevant PMH: dementia, bipolar disorder, HTN/HLD, BPH and recent PNA/UTI Significant 24 hour events: 12/15 PM: A/O x4, afebrile, VSS on RA. No c/o pain. Scheduled medications given per Jun. Incontinencecare provided as needed. Pt rested in between nursing care. Chemo plan & supportive medication: N/A Baseline Weight: 73 kg Most recent weight: 73 kg Action List Encourage PO intake - Dysphagia soft diet Scheduled ativan for anxiety Nasal congestion management Ambulation Discharge Plan: D/C to rehab facility when medically appropriate Consults: Psychiatry PT [x] OT [x] WOOD MODEL BUILDER [] Chastity Valdes RN - 12/15/2021 6:16 PM EDT Illness Severity [x] Stable [] Watcher [] Unstable Patient Summary Reason for admission: altered mental status or catatonia Relevant PMH: dementia, bipolar disorder, HTN/HLD, BPH and recent PNA/UTI Significant 24 hour events: 12/15 AM: Pt remained A&Ox4 throughout shift. VSS on RA. Patient denies pain, numbness/tingling. & sister visiting during beginning of shift. Spoke with MD about family mentioning that pt'sbehavior was similar to when he had his first bipolar episode and around the time that his mother passes away. D/c plan TBD. Pt resting between care. 12/14-PM: Patient slept well throughout the night. Patient denies pain. Patient incontinent x1 and continent with the urinal this morning. Bed alarm maintained on. Chemo plan & supportive medication: N/A Baseline Weight: 73 kg Most recent weight: 73 kg Neuro: WDL oriented to self and sometimes place CV: WDL except resting HR Bradycardia 52-55 Telemetry: No Neurovasc: .WDL except, neurovascular assessment lower VTE Prophylaxis: anticoagulant therapy Pulmonary: WDL O2 Device: None (Room air) 1 L for comfort at night GI: WDL fecal incontinence LBM: 12/15/21 Fingerstick order: No : .WDL except, voiding ability/characteristics scrotal redness, int. Incontinent Funk [] Last Funk Care : Musculoskeletal: .WDL except generalized weakness Pain/Location: 0 (12/15/21 0900) / Mobility Plan: 1-2 assist with FWW Bed alarm sensitivity: High Skin: .WDL except, characteristics blanchable redness sacrum; scrotal redness; bruising. Psych/Social: Sisi, sister Action List Encourage PO intake - Dysphagia soft diet Scheduled ativan for anxiety Nasal congestion management Ambulation Discharge Plan: D/C to rehab facility when medically appropriate Consults: Psychiatry PT [x] OT [x] WOOD MODEL BUILDER [] Situational Awareness & Contingency Planning Synthesis (Verbal Only) Washington Stratton MD - 12/15/2021 11:29 AM EDT Psychiatric Inpatient Consultation Follow Up Note Time Spent: 40 minutes Information Sources: Patient. Electronic Medical Record. This patient was discussed with Dr. Bob. See his note for confirmatory and/or revisionary documentation. Reason for consultation: Catatonia Interim History: - Over the weekend the patient continued to do well from a catatonia perspective and was noted to be taking good PO, as well as taking his oral medications. - Today, discussion with family reveals that since about Wednesday night, the patient has begun reporting consistent feelings that he is imminently about to because of asphyxia. They report he has had these delusions in the past, just after the of his mother after she chose to come off of ventilatory life support (per family this event led to his first manic episode). - On discussion with the patient, he reports a belief that there's something wrong with my nostrilsconnecting to my bronchus, and that because of this, he cannot breathe normal air like his family or the medical team. He notes this has been present since he was admitted and reports fear surroundingdying due to asphyxia, which he notes is the worst way to go, hands down. He relates a sense of inevitability surrounding this, and is adamant that the medical team can do nothing to stop this. He cites urinary and stool incontinence, which he had recently, as typical signs of that confirm hisfate. He is adamant that he does not want to and would not hurt himself or others, but is equally as sure that he will . - Of note, patient's family reports he was acting bizarre yesterday afternoon and lecturing them with almost pressured speech, which reminded them of his first manic episode. They report that seems to have changed this morning and he seems more calm this morning. Review of Systems: Constitutional : Notes he feels short of breath, denies outright fatigue. Cardiac: No chest pain or palpitations Psych: As documented in HPI Extent of history Determination: Adarsh descriptors, reviewed systems, and level of history with x. HPI Descriptors 1-3 1-3 X 4 + Reviewed Systems 0 1 X 2-9 Level of Hx PF EPF X D Physical Exam: Last value Range last 24 hrs Temperature Temp: 36.6 ??C (97.9 ??F) Temp: [36.6 ??C (97.9 ??F)-37.1 ??C (98.8 ??F)] Heart Rate Heart Rate: 56 Heart Rate: [56] Blood Pressure BP: 106/64 BP: (101-139)/(64-88) Respiratory Rate Resp: 16 Resp: [16] SpO2 SpO2: 96 % SpO2: [93 %-98 %] Mental Status Evaluation: Musculoskeletal System: Muscle Strength/Tone (note atrophy, abnormal movements): Symmetric muscle bulk. Inconsistent cogwheeling rigidity of all four extremities (different frequency and tone of rigidity on subsequent exams) Gait and Station: Not assessed Psychiatric: ?? Appearance: older than stated age , casually dressed and disheveled ?? Behavior: cooperative with the interview, calm and intermittent eye contact ?? Speech: normal pitch, normal volume, normal rate, normal rhythm and some increased latency noted at times, when patient reported he was about to stop breathing again ?? Language: fluent in kuwaiti, without paraphasic errors and without word finding difficulty ?? Mood: Guarded, Concerned ?? Affect: blunted and mood-congruent ?? Thought Process: Patient attempted to demonstrated logical and linear thinking, he described how he knew he only had minutes to live as the brain needs oxygen and cannot survive for long. He expressed that urinating on himself and defecating on himself were things people did as their bodies began to . When asked why he couldn't breathe and what had changed from admission to now, he was not ableto clearly or logically articulate this process. ?? Associations: loose ?? Thought Content: denied homicidal ideation, denied suicidal ideation and had a stable delusion that he was not able to breathe and had not been for some time. He reported that he couldn't breathe the air in the room, while acknowledging that everyone else could, he felt that his biology was different. He was fixated on this idea, and expressed certainty he would , coupled with anxiety surrounding this and apprehension about dying by asphyxiation as he described it. He reported he hoped he would have a heart attack before dying from lack of oxygen. ?? Perception: denied auditory hallucinations denied visual hallucinations not observed responding to internal stimuli ?? Orientation: person, place, time, date and situation ?? Attention/Concentration: able to sustain focus ?? Cognition: grossly impaired by interview - While other aspects of cognition appeared almost normal, patient was not able to address discrepancies between his delusion and events surrounding his hospitalization or the day's events. ?? Memory: memory impairment noted: recent midazolam use ?? Fund of Knowledge: appropriate for age and level of functioning ?? Insight: poor ?? Judgment: limited ?? Rodríguez-Darshan Catatonia Rating Scale: Use presence or absence of items 1-14 for screening Use the 0-3 scale for items 1-23 to rate severity. 1) Excitement: Extreme hyperactivity, constant motor unrest which is apparently non-purposeful. Not to be attributed to akathisia or goal directed agitation 0 = Absent 2) Immobility/stupor: Extreme hypoactivity, immobile, minimally responsive to stimuli 0 = Absent 3) Mutism: Verbally unresponsive or minimally responsive 0 = Absent 4) Staring:Fixed gaze, little or no visual scanning of environment, decreased blinking. 0 = Absent 5) Posturing/catalepsy: Spontaneous maintenance of posture(s), including mundane (e.g. setting or standing for long periods without reacting) 0 = Absent 6) Grimacing: Maintenance of odd facial expressions. 0 = Absent 7) Echopraxia/echolalia: Mimicking of examiner's movements/speech. 0 = No mimicking of examiner's movements/speech 8) Stereotypy: Repetitive, non goal-directed motor activity (e.g. Finger-play; repeatedly touching, patting or rubbing self); abnormality not inherent in act but in frequency. 0 = Absent 9) Mannerisms: Odd, purposeful movements (hopping or walking tiptoe, saluting passers-by or exaggerated caricatures of mundane movements); abnormality inherent in act itself. 0 = Absent 10) Verbigeration: Repetition of phrases or sentences (like a scratched record). 0 = Absent 11) Rigidity: Maintenance of a rigid position despite efforts to be moved, exclude if cog-wheeling or tremor present. 0 = Absent 12) Negativism: apparently motiveless resistance to instructions or attempts to move/examine patient. Contrary behavior, does exact opposite of instruction: 1 = Mild resistance and/or occasionally contrary 13) Waxy Flexibility: During reposturing of patient, patient offers initial resistance before allowing himself to be repositioned, similar to that of a bending candle 0 = Absent 14) Withdrawal: Refusal to eat, drink and/or make eye contact 0 = Absent 15) impulsivity: Patient suddenly engages in inappropriate behavior (e.g. Runs down hallway, starts screaming or takes off clothes) without provocation. Afterwards can give no, or only a facile explanation 0 = Absent 16) Automatic Obedience: Exaggerated cooperation with examiner's request or spontaneous continuationof movement requested. 0 = Absent 17) [place]: Anglepoise lamp arm raising in response to light pressure of finger, despite instruction to the contrary. 0 = Absent 18) [place]: Resistance to passive movement which is proportional to strength of the stimulus, appears automatic rather than willful. 0 = Absent 19) Ambitendnecy: Patient appears motorically stuck in indecisive, hesitant movement. 0 = Absent 20) Grasp Reflex: Per neurological exam. 0 = Absent 21) Perseveration: Repeatedly returns to same topic or persists with movement. 0 = Absent 22) Combativeness: Usually in an undirected manner, with no, or only a facile explanation afterwards. 0 = Absent 23) Autonomic abnormality [place]: Temperature, BP, Pulse, Respiratory rate, diaphoresis 0 = Absent Total 1-14: 1 Total: 1 Pertinent Diagnostic Testing: Last 3 wbc, hgb, hct plt Recent Labs 12/15/21 0422 12/14/21 0420 12/13/21 0259 WBC 8.5 9.2 12.0* HGB 14.0 14.1 14.3 HCT 41.3 42.4 43.4 PLATELET 290 288 278 Last 3 Lytes Recent Labs 12/15/21 0422 12/14/21 0420 12/13/21 0259 NA 142 142 143 K 3.7 3.5 3.5 CL 109* 111* 110* CO2 22 21* 22 BUN 7* 7* 7* CREATININE 1.10 1.04 1.05 Last 3 LFTs Recent Labs 12/08/21 1657 AST 23 ALT 25 ALKPHOS 94 BILITOT 0.2 BILIDIR 0.1 Last 3 Ca, Mg, Phos Recent Labs 12/15/21 0422 12/14/21 0420 12/13/21 0259 12/10/21 0456 12/09/21 1054 12/08/21 1657 CALCIUM 8.9 9.0 9.2 < > 9.5 9.8 PHOS 2.7 2.8 2.9 < > 1.2* 1.2* MAGNESIUM -- -- -- -- 0.72 0.79 < > = values in this interval not displayed. Last 3 ProBNP, Trop, CK Recent Labs 12/08/21 1657 TROPONINT <0.01 Last 3 TFT Recent Labs 12/08/21 1727 TSH 1.51 UA: Lab Results Component Value Date COLOR Yellow 12/09/2021 CLARITY Clear 12/09/2021 GLUCOSEU Negative 12/09/2021 PROTEINUADIP Negative 12/09/2021 BILIRUBINUA Negative 12/09/2021 UROBILIUADIP Normal 12/09/2021 PHUADIP 6.5 12/09/2021 SPGRAVITYUA 1.004 (L) 12/12/2021 BLOODUADIP Negative 12/09/2021 KETONESUA Negative 12/09/2021 NITRATEUA Negative 12/09/2021 LEUKOESTERUA Negative 12/09/2021 CULTUREREFLX No 12/09/2021 Urine Tox: Lab Results Component Value Date U Barbiturates Screen None Detected 12/09/2021 U Benzodiazepines Screen Presumptive Pos (A) 12/09/2021 U Cocaine Screen None Detected 12/09/2021 U Methadone Metabolites Screen None Detected 12/09/2021 U Opiate Screen None Detected 12/09/2021 U Cannabinoid Screen None Detected 12/09/2021 U Oxycodone Screen None Detected 12/09/2021 U Buprenorphine Screen None Detected 12/09/2021 U Fentanyl Screen None Detected 12/09/2021 U Tricyclics Screen None Detected 12/09/2021 U Ethanol Screen None Detected 12/09/2021 U Amphetamines Screen None Detected 12/09/2021 U Adulterants Screen None Detected 12/09/2021 EKG QTc: Recent Labs 12/08/21 1716 12/10/21 0405 QTCCALC 493 486 QRSDURATION 162 176 Extent of Exam Determination: Adarsh completed bullets & level of exam with ? X? Bullets Completed 1-5 6-8 X 9+ Level of Exam PF EPF X D Assessment: The patient is a 71-year-old gentleman with past medical history of bipolar disorder, presumed dementia, and suspected recent catatonia who presented [facility] with progressively altered mental status as well as concern for catatonia recurrence. He continues to show significant improvement compared to prior days. As he has become more interactive and aware of his surroundings, Mr. Shepherd has begun to express fears of asphyxiation and delusional beliefs that he is in the process of dying due to asphyxiation to his family as well as the medical team. Per the family, these are very similar to expressions he made just after the of his mother when she chose to be taken off ventilatory life support, which they report was a jarring experience for him. Likely the patient is experiencing recrudescence of prior delusions which were well controlled on his prior antipsychotic regimen (olanzapine) which was held due to catatonia. Primary Diagnosis: Catatonia, Bipolar Disorder Plan/Recommendations: -Continue PO lorazepam 1 mg PO TID -Consider re-addition of prior anti-psychotic olanzapine at 2.5 mg PO QHS Patient on IEA Status? IEA: NO, patient is not on IEA, but decision making capacity may require reassessment by psychiatry if patient attempts to leave AMA. Recommendations were communicated to primary swat team member Dr. Almaraz #[id number]. Washington Stratton MD 12/15/2021 Coding Determination Complexity of MDM Determination: Adarsh appropriate # of Dx, Amt, complexity of date, Risk, & corresponding level of MDM with x. 2 out of 3 elements in row must be met to qualify. # of Possible Diagnoses or Management Options Amount and/or Complexity of Data Risk of Complications, Morbidity, and or Mortality Type of Decision Making Minimal Minimal/None Minimal Straightforward Limited Limited Low Low Multiple Moderate Moderate Moderate X Extensive X Extensive X High X High Subsequent Hospital Day Service Code Determination: Adarsh Hx, Exam, MDM & SALVATORE/CPT Code with x. 2 out of # hernandez components in the row must be met to qualify. HISTORY EXAM MDM SALVATORE/CPT CODE PF PF Straightforward/Low 3005/26151 EPF EPF Moderate 3015/81259 X D X D X High X 3025/72925 Associated attestation - Mayco Bbo MD - 12/19/2021 1:34 PM EDT Psychiatry Attending Note I discussed this patient's situation with the resident but did not see the patient. I contributed tothe formulation and treatment planning as documented in the resident's note. Mayco Bob MD Psychiatry Consultation Pager: [phone] Yoko Dexter PT - 12/15/2021 10:08 AM EDT 12/15/21 1007 Evaluation & Treatment Document Type contact Comment, Session Not Performed Pt declined mobilizing out of bed despite encouragement from PT and family. RN aware. Will follow up as able. Yoko Dexter PT, DPT Pager #[phone] Joseph Almaraz MD - 12/15/2021 7:24 AM EDT Images from the original note were not included. Hospital Medicine Attending Daily Progress Note Admit Date: 12/08/2021 ( Hospital Day 5 days ) Active Hospital Problems Diagnosis ??? Catatonia Resolved Hospital Problems No resolved problems to display. ASSESSMENT: Sebas Shepherd Jr. is a 71 y.o. male with past medical history of HTN, DLP, BPH, dementia, bipolar disorder who presented with altered mental status. No events and patient seems unchanged from prior. He is speaking in short sentences and following some commands and is without focal deficits. Remains on Ativan TID dosing. Hypernatremia has resolved and now stable several days with prior interventions. Patient might have DI but is compensating adequately with free water consumption. Not inclined to add HCTZ at present. Discussed at bedside with patient's and sister. They state his can't take care of him and that after he is discharged to SNF will need LTC. This process has already been initiated PLAN: # Probable catatonia # Acute delirium, improving - psych input appreciated - scheduled ativan 1 mg PO TID - r/o metabolic/ structural cause - defer MRI for now given improvement #Nasal stuffiness Per patient's sister, his perseverance on this issue may be delusional in nature. Has apparently often made statements about being different from everyone else and needing a different kind of air to breathe. This is in context of seeing his mother from COPD and spending her last days on a vent. Nothing to suggest any pulmonary processes for Mr. Shepherd at this time. -Continue Benavides Lempster -Add Flonase 2 sprays daily -Encourage warm shower today -Reassurance that he is oxygenating excellently ?? #Hypernatremia, resolved -Na 142 today. Cont to monitor. He might have a component of nehrogenic DI given previous Dresbach use. - patient drinking to thirst - CTM # Hypophosphatemia, rseolved - s/p potassium phosphate IV with improvement, now above normal range; d/c scheduled PO phos - will follow BMP, Phos ? # Bipolar disorder - resume bupropion 100 mg po bid - resume mirtazapine 45 mg po hs ?? # Recent UTI and pneumonia - improving per his ?? # BPH - resume tamsulosin 0.4 mg po daily Diet Dysphagia Soft Diet 60 gm Protein; 2 GM NA Discharge planning SNF --> ? LTC PT/OT/Speech Ordered Lines/Access none Funk catheter No DVT/GI Prophylaxis Lovenox Vital/lab/FS frequency Vitals Q6H, Labs Qdaily Code status Do NOT Attempt CPR - Inpatient Family Sisi Shepherd (spouse) [phone] PCP Jose Eduardo Barboza MD [phone] Attestation IPI Certification I certify that I am a D-H credentialed attending provider with admitting privileges and that the patient meets or has met medical necessity to require an inpatient IPI level of care meeting a minimum of two midnights or is on the [facility] inpatient only procedure list (status C) due to: catatonia Team (26/10 Coverage) 2500 PCP: MD El Camejo MD [facility] 12/15/2021 Subjective/24hr events: - Pt seen and examined at bedside - Eating breakfast when seen - Voices no complaints and does not bring up his nasal stuffiness today ROS: no chest pain, nausea or abdominal pain Vitals: Last value Range last 24 hrs Temperature Temp: 36.6 ??C (97.9 ??F) Temp: [36.6 ??C (97.9 ??F)-37.1 ??C (98.8 ??F)] Heart Rate Heart Rate: 75 Heart Rate: -- Blood Pressure BP: 101/65 BP: (101-139)/(65-88) Respiratory Rate Resp: 16 Resp: [16] SpO2 SpO2: 93 % SpO2: [93 %-98 %] Intake/Output Summary (Last 24 hours) at 12/15/2021 0725 Last data filed at 12/15/2021 0343 Gross per 24 hour Intake 460 ml Output 500 ml Net -40 ml EXAM GEN: Lying in bed comfortably, NAD, on RA, breathing comfortably, occasionally speaking in short sentences HEENT: Anicteric, no conjunctival pallor, EOMI, PERRL; dry mucosa in nares CVS: RRR, S1+S2+no added sounds CHEST: CTABL, no added sounds ABD: Soft, ND/NT, BS+ron NEURO: AAO*3, no focal deficits. PSYCH: Normal mood and affect EXT: No edema. Mild cogwheel rigidity. Mild resting tremors. SKIN: No rash or open wounds LABS: Reviewed in eDH. Remarkable for the following: Recent Labs 12/15/2142112/14/2141912/13/21258 WBC 8.5 9.2 12.0* HGB 14.0 14.1 14.3 HCT 41.3 42.4 43.4 PLATELET 290 288 278 Recent Labs 12/15/2142112/14/2141912/13/21258 NA 142 142 143 K 3.7 3.5 3.5 CL 109* 111* 110* CO2 22 21* 22 BUN 7* 7* 7* CREATININE 1.10 1.04 1.05 GLUCOSE 82 95 89 CALCIUM 8.9 9.0 9.2 PHOS 2.7 2.8 2.9 No results for input(s): AST, ALT, ALKPHOS, BILITOT, BILIDIR in the last 72 hours. MICRO: No results for input(s): URINECULTURE in the last 720 hours. No results for input(s): BLOODCX in the last 720 hours. COVID 19 PCR : Microbiology Results (Last 30 days) No results found for the last 720 hours. STUDIES: Results for orders placed or performed during the hospital encounter of 12/08/21 XR Ankle Min 3 views Right (Generic) (Exam End: 12/08/2021 4:25 PM) Impression No acute fracture or malalignment of the RIGHT ankle. I have personally reviewed the image(s) and the resident's interpretation and agree with the findings, Aye Serra MD at 12/08/2021 5:05 PM Thank you for letting us participate in the care of this patient. If you are a health care provider and have any questions regarding this report, please contact the number below. For patients who have questions please contact the health child care assistant that requested your imaging first. Chest One View (Exam End: 12/10/2021 4:32 AM) Impression No acute cardiopulmonary findings. Preliminary report signed by: Kailash More at 12/10/2021 4:43 AM I have personally reviewed the image(s) and the resident's interpretation and agree with the findings, Katharine Ferreira MD at 12/10/2021 4:59 AM Thank you for letting us participate in the care of this patient. If you are a health care provider and have any questions regarding this report, please contact the number below. For patients who have questions please contact the health child care assistant that requested your imaging first. Electronically signed by: Katharine Ferreira MD, [facility] ([phone]), at 12/10/2021 4:59 AM Medications: Scheduled Meds: ??? fluticasone propionate 2 spray Each Nare Daily ??? sodium chloride 2 spray Each Nare BID ??? LORazepam 1 mg Oral TID ??? aspirin 81 mg Oral Daily ??? buPROPion SR 100 mg Oral BID ??? mirtazapine 45 mg Oral Nightly ??? tamsulosin 0.4 mg Oral Nightly ??? thiamine 100 mg Oral Daily ??? sodium chloride 0.9 % (flush) 5 mL Intravenous BID ??? enoxaparin 40 mg Subcutaneous Nightly ??? melatonin 3 mg Oral Nightly Continuous Infusions: PRN Meds:.LORazepam, albuteroL, polyethylene glycoL, senna-docusate, sodium chloride 0.9 % (flush), lidocaine, acetaminophen Jeff Han RN - 12/15/2021 6:38 AM EDT Illness Severity [x] Stable [] Watcher [] Unstable Patient Summary Reason for admission: altered mental status or catatonia Relevant PMH: dementia, bipolar disorder, HTN/HLD, BPH and recent PNA/UTI Significant 24 hour events: 12/14-PM: Patient slept well throughout the night. Patient denies pain. Patient incontinent x1 and continent with the urinal this morning. Bed alarm maintained on. 12/14 AM: Pt A&Ox4 w/intermittent c/o not being able to breathe through his nose- O2 sats maintained >96% throughout shift. Scheduled Flonase/nasal saline given per JUN. VSS on . Pt afebrile, no c/o pain. Urinal placed at bedside, pt able to use w/o difficulty. Pt into shower w/2 assist, pt refused oral care at that time. & sister at beside throughout shift. Pt continued on dysphagiasoft diet, tolerating well. Pt resting between care. 910 PM: A/O x 2-3 to self, place, year int. Anxious at the beginning of shift but cooperative with care. Tolerated scheduled medications well. Resting HR 50s, BP 90s/50s with Map 66-68. made aware.On 1 L NC int for comfort while asleep. Afebrile, denies pain. Scheduled time utilized to void with pt voiding using the urinal. No BM. Fall protocol maintained with pt rested comfortable throughout thenight. Chemo plan & supportive medication: N/A Baseline Weight: 73 kg Most recent weight: 73 kg Chastity Valdes RN - 12/14/2021 6:46 PM EDT Illness Severity [x] Stable [] Watcher [] Unstable Patient Summary Reason for admission: altered mental status or catatonia Relevant PMH: dementia, bipolar disorder, HTN/HLD, BPH and recent PNA/UTI Significant 24 hour events: 911 AM: Pt A&Ox4 w/intermittent c/o not being able to breathe through his nose- O2 sats maintained >96% throughout shift. Scheduled Flonase/nasal saline given per JUN. VSS on . Pt afebrile, no c/o pain. Urinal placed at bedside, pt able to use w/o difficulty. Pt into shower w/2 assist, pt refused oral care at that time. & sister at beside throughout shift. Pt continued on dysphagiasoft diet, tolerating well. Pt resting between care. 910 PM: A/O x 2-3 to self, place, year int. Anxious at the beginning of shift but cooperative with care. Tolerated scheduled medications well. Resting HR 50s, BP 90s/50s with Map 66-68. made aware.On 1 L NC int for comfort while asleep. Afebrile, denies pain. Scheduled time utilized to void with pt voiding using the urinal. No BM. Fall protocol maintained with pt rested comfortable throughout thenight. Chemo plan & supportive medication: N/A Baseline Weight: 73 kg Most recent weight: 73 kg Neuro: .WDL except oriented to self and sometimes place CV: .WDL except, rhythm except resting HR Bradycardia 52-55 Telemetry: No Neurovasc: .WDL except, edema, neurovascular assessment lower VTE Prophylaxis: anticoagulant therapy (lovenox) Pulmonary: WDL O2 Device: None (Room air) 1 L for comfort at night GI: appearance/characteristics fecal incontinence LBM: 12/10/2112/14 Fingerstick order: No : .WDL except, voiding ability/characteristics scrotal redness, int. Incontinent Funk [] Last Funk Care : Musculoskeletal: WDL, mobility generalized weakness Pain/Location: 7 (12/14/21 0932) / Mobility Plan: 1-2 assist with FWW Bed alarm sensitivity: High Skin: .WDL except, characteristics blanchable redness sacrum; scrotal redness; bruising. 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 Hospital Medicine Attending Daily Progress Note Admit Date: 12/08/2021 ( Hospital Day 4 days ) Active Hospital Problems Diagnosis ??? Catatonia Resolved Hospital Problems No resolved problems to display. ASSESSMENT: Sebas Shepherd JrChandler is a 71 y.o. male with past medical history of HTN, DLP, BPH, dementia, bipolar disorder who presented with altered mental status. Improved mentation today, speaking in short sentences and following some commands. No focal deficits, discussed with Psych and will continue current Ativan dosing. Recent Hypernatremia with >6L UOP. Urine hypo-osmolar spec grav 1.004, reports only remote lithium usage (thinks >10 years prior), ?Diabetes insipidus. However, patient is also drinking a lot of free water (difficult to quantify), so that might be contributing to high UOP and low urine osmolarity. Could consider trial of HCTZ if hypernatremia is recurrent. PLAN: # Probable catatonia # Acute delirium, improving - psych input appreciated - scheduled midazolam 2 mg IV TID -> ativan 1 mg PO TID - r/o metabolic/ structural cause - defer MRI for now given improvement #Nasal stuffiness -Continue Benavides Lempster -Add Flonase 2 sprays daily -Encourage warm shower today -Reassurance that he is oxygenating excellently ?? #Hypernatremia -Na 142 today. Cont to monitor. He might have a component of nehrogenic DI given previous Dresbach use. - patient drinking to thirst, -start low sodium, protein restricted diet -consider HCTZ 25 mg daily if develops further hypernatremia # Hypophosphatemia, rseolved - s/p potassium phosphate IV with improvement, now above normal range; d/c scheduled PO phos - will follow BMP, Phos ? # Bipolar disorder - resume bupropion 100 mg po bid - resume mirtazapine 45 mg po hs ?? # Recent UTI and pneumonia - improving per his ?? # BPH - resume tamsulosin 0.4 mg po daily Diet Dysphagia Soft Diet 60 gm Protein; 2 GM NA Discharge planning SNF PT/OT/Speech Ordered Lines/Access PIV Funk catheter No DVT/GI Prophylaxis Lovenox Vital/lab/FS frequency Vitals Q6H, Labs Qdaily Code status Do NOT Attempt CPR - Inpatient Family Sisi Shepherd (spouse) [phone] PCP Jose Eduardo Barboza MD [phone] Attestation IPI Certification I certify that I am a D-H credentialed attending provider with admitting privileges and that the patient meets or has met medical necessity to require an inpatient IPI level of care meeting a minimum of two midnights or is on the [facility] inpatient only procedure list (status C) due to: catatonia Team (26/10 Coverage) 2500 PCP: MD El Camejo MD [facility] 12/14/2021 Subjective/24hr events: - Pt seen and examined at bedside -Patient perseverating on nasal stuffiness and inability to breathe comfortably. ROS: no chest pain, nausea or abdominal pain Vitals: Last value Range last 24 hrs Temperature Temp: 36.7 ??C (98.1 ??F) Temp: [36.7 ??C (98.1 ??F)-36.8 ??C (98.2 ??F)] Heart Rate Heart Rate: 75 Heart Rate: [67-75] Blood Pressure BP: 123/62 BP: (92-150)/(53-95) Respiratory Rate Resp: 17 Resp: [17-22] SpO2 SpO2: 97 % SpO2: [94 %-100 %] Intake/Output Summary (Last 24 hours) at 12/14/2021 0938 Last data filed at 12/14/2021 0530 Gross per 24 hour Intake 800 ml Output 2125 ml Net -1325 ml EXAM GEN: Lying in bed comfortably, NAD, on RA, breathing comfortably, occasionally speaking in short sentences HEENT: Anicteric, no conjunctival pallor, EOMI, PERRL; dry mucosa in nares CVS: RRR, S1+S2+no added sounds CHEST: CTABL, no added sounds ABD: Soft, ND/NT, BS+ron NEURO: AAO*3, no focal deficits. PSYCH: Normal mood and affect EXT: No edema. Mild cogwheel rigidity. Mild resting tremors. SKIN: No rash or open wounds LABS: Reviewed in eD. Remarkable for the following: Recent Labs 12/14/21 0420 12/13/21 0259 12/12/21 0433 WBC 9.2 12.0* 10.7* HGB 14.1 14.3 13.6* HCT 42.4 43.4 40.3* PLATELET 288 278 275 Recent Labs 12/14/21 0420 12/13/21 0259 12/12/21202512/12/21 0433 NA 142 143 140 146* K 3.5 3.5 3.7 3.8 CL 111* 110* 106 116* CO2 21* 22 25 23 BUN 7* 7* 7* 7* CREATININE 1.04 1.05 1.12 1.19 GLUCOSE 95 89 92 84 CALCIUM 9.0 9.2 9.2 8.8 PHOS 2.8 2.9 -- 3.8 No results for input(s): AST, ALT, ALKPHOS, BILITOT, BILIDIR in the last 72 hours. MICRO: No results for input(s): URINECULTURE in the last 720 hours. No results for input(s): BLOODCX in the last 720 hours. COVID 19 PCR : Microbiology Results (Last 30 days) No results found for the last 720 hours. STUDIES: Results for orders placed or performed during the hospital encounter of 12/08/21 XR Ankle Min 3 views Right (Generic) (Exam End: 12/08/2021 4:25 PM) Impression No acute fracture or malalignment of the RIGHT ankle. I have personally reviewed the image(s) and the resident's interpretation and agree with the findings, Aye Serra MD at 12/08/2021 5:05 PM Thank you for letting us participate in the care of this patient. If you are a health care provider and have any questions regarding this report, please contact the number below. For patients who have questions please contact the health child care assistant that requested your imaging first. Chest One View (Exam End: 12/10/2021 4:32 AM) Impression No acute cardiopulmonary findings. Preliminary report signed by: Kailash More at 12/10/2021 4:43 AM I have personally reviewed the image(s) and the resident's interpretation and agree with the findings, Katharine Ferreira MD at 12/10/2021 4:59 AM Thank you for letting us participate in the care of this patient. If you are a health care provider and have any questions regarding this report, please contact the number below. For patients who have questions please contact the health child care assistant that requested your imaging first. Electronically signed by: Katharine Ferreira MD, [facility] ([phone]), at 12/10/2021 4:59 AM Medications: Scheduled Meds: ??? fluticasone propionate 2 spray Each Nare Daily ??? sodium chloride 2 spray Each Nare BID ??? LORazepam 1 mg Oral TID ??? aspirin 81 mg Oral Daily ??? buPROPion SR 100 mg Oral BID ??? mirtazapine 45 mg Oral Nightly ??? tamsulosin 0.4 mg Oral Nightly ??? thiamine 100 mg Oral Daily ??? sodium chloride 0.9 % (flush) 5 mL Intravenous BID ??? enoxaparin 40 mg Subcutaneous Nightly ??? melatonin 3 mg Oral Nightly Continuous Infusions: PRN Meds:.LORazepam, albuteroL, polyethylene glycoL, senna-docusate, sodium chloride 0.9 % (flush), lidocaine, acetaminophen Sharon Chaney RN - 12/13/2021 4:38 PM EDT Pt A&O x1-2. Denied having any pain. Pt did c/o of not being able to breathe through nose, pt w/ 100% O2 sats on RA and did not appear to be in any breathing distress as he was able to speak calmly and drink water w/o issue. Pt encouraged to take slow deep breaths w/ IS and this RN reassured pt was getting the oxygen he needs. Administered nasal spray w/ minimal effect and placed pt on 1L NC for comfort. He had a dysphagia soft diet, tolerated well, denied nausea. Pt's funk removed in AM and pt passed voiding trial. No BM this shift. Able to ambulate to sit up in chair for part of the shift, tolerated well. At approximately 1330, this RN was about to help the pt stand to move to the chair when pt stated hecouldn't breathe. Pt started breathing heavily and had a blank stare and would only intermittently respond to verbal cues. Rest of assessment of pt was unchanged from beginning of shift, BP 150/95, otherwise VSS. Pt's at bedside and stated that these episodes were typical for pt and that he just gets severely anxious as he hyperfocuses on one thing over and over again and that it could last hours. This episode occurred for 30 minutes with pt intermittently responsive to commands and questions. Team aware. No similar episodes since. El Nice MD - 12/13/2021 10:35 AM EDT Images from the original note were not included. Hospital Medicine Attending Daily Progress Note Admit Date: 12/08/2021 ( Hospital Day 3 days ) Active Hospital Problems Diagnosis ??? Catatonia Resolved Hospital Problems No resolved problems to display. ASSESSMENT: Sebas Shepherd Jr. is a 71 y.o. male with past medical history of HTN, DLP, BPH, dementia, bipolar disorder who presented with altered mental status. Improved mentation today, speaking in short sentences and following some commands. No focal deficits, discussed with Psych and will continue current Ativan dosing. Recent Hypernatremia with >6L UOP. Urine hypo-osmolar spec grav 1.004, reports only remote lithium usage (thinks >10 years prior), ?Diabetes insipidus. However, patient is also drinking a lot of free water (difficult to quantify), so that might be contributing to high UOP and low urine osmolarity. Could consider trial of HCTZ PLAN: # Probable catatonia # Acute delirium, improving - psych input appreciated - scheduled midazolam 2 mg IV TID -> ativan 1 mg PO TID - r/o metabolic/ structural cause - defer MRI for now given improvement ?? #Hypernatremia -Na 143 today. Cont to monitor. He might have a component of nehrogenic DI given previous Dresbach use. - patient drinking to thirst, -start low sodium, protein restricted diet -consider HCTZ 25 mg daily if develops further hypernatremia # Hypophosphatemia, rseolved - s/p potassium phosphate IV with improvement, now above normal range; d/c scheduled PO phos - will follow BMP, Phos ? # Bipolar disorder - resume bupropion 100 mg po bid - resume mirtazapine 45 mg po hs ?? # Recent UTI and pneumonia - improving per his ?? # BPH - resume tamsulosin 0.4 mg po daily Diet Dysphagia Soft Diet Discharge planning SNF PT/OT/Speech Ordered Lines/Access PIV Funk catheter No DVT/GI Prophylaxis Lovenox Vital/lab/FS frequency Vitals Q6H, Labs Qdaily Code status Do NOT Attempt CPR - Inpatient Family Sisi Shepherd (spouse) [phone] PCP Jose Eduardo Barboza MD [phone] Attestation IPI Certification I certify that I am a D-H credentialed attending provider with admitting privileges and that the patient meets or has met medical necessity to require an inpatient IPI level of care meeting a minimum of two midnights or is on the [facility] inpatient only procedure list (status C) due to: catatonia requiringIV benzodiazepine therapy Team (26/10 Coverage) 2500 PCP: MD El Camejo [facility] 12/13/2021 Subjective/24hr events: - Pt seen and examined at bedside - reports thirst this morning and difficulty breathing (not new). Also complains of nasal congestion ROS: no chest pain, nausea or abdominal pain Vitals: Last value Range last 24 hrs Temperature Temp: 36.6 ??C (97.9 ??F) Temp: [36.6 ??C (97.9 ??F)-36.9 ??C (98.4 ??F)] Heart Rate Heart Rate: 55 Heart Rate: [55] Blood Pressure BP: 131/72 BP: (119-150)/(57-79) Respiratory Rate Resp: 16 Resp: [16-19] SpO2 SpO2: 97 % SpO2: [96 %-100 %] Intake/Output Summary (Last 24 hours) at 12/13/2021 1040 Last data filed at 12/13/2021 0900 Gross per 24 hour Intake 1330 ml Output 6000 ml Net -4670 ml EXAM GEN: Lying in bed comfortably, NAD, on RA, breathing comfortably, occasionally speaking in short sentences HEENT: Anicteric, no conjunctival pallor, EOMI, PERRL CVS: RRR, S1+S2+no added sounds CHEST: CTABL, no added sounds ABD: Soft, ND/NT, BS+ron NEURO: AAO*3, no focal deficits. PSYCH: Normal mood and affect EXT: No edema. Mild cogwheel rigidity. Mild resting tremors. SKIN: No rash or open wounds LABS: Reviewed in eDH. Remarkable for the following: Recent Labs 12/13/2125812/12/2143212/11/21437 WBC 12.0* 10.7* 11.2* HGB 14.3 13.6* 12.9* HCT 43.4 40.3* 37.9* PLATELET 278 275 284 Recent Labs 12/13/2125812/12/21202512/12/2143212/11/21437 NA 143 140 146* 142 K 3.5 3.7 3.8 3.5 CL 110* 106 116* 109* CO2 BUN 7* 7* 7* 8* CREATININE 1.05 1.12 1.19 1.31 GLUCOSE 89 92 84 83 CALCIUM 9.2 9.2 8.8 8.5 PHOS 2.9 -- 3.8 4.7* No results for input(s): AST, ALT, ALKPHOS, BILITOT, BILIDIR in the last 72 hours. MICRO: No results for input(s): URINECULTURE in the last 720 hours. No results for input(s): BLOODCX in the last 720 hours. COVID 19 PCR : Microbiology Results (Last 30 days) No results found for the last 720 hours. STUDIES: Results for orders placed or performed during the hospital encounter of 12/08/21 XR Ankle Min 3 views Right (Generic) (Exam End: 12/08/2021 4:25 PM) Impression No acute fracture or malalignment of the RIGHT ankle. I have personally reviewed the image(s) and the resident's interpretation and agree with the findings, Aye Serra MD at 12/08/2021 5:05 PM Thank you for letting us participate in the care of this patient. If you are a health care provider and have any questions regarding this report, please contact the number below. For patients who have questions please contact the health child care assistant that requested your imaging first. Chest One View (Exam End: 12/10/2021 4:32 AM) Impression No acute cardiopulmonary findings. Preliminary report signed by: Kailash More at 12/10/2021 4:43 AM I have personally reviewed the image(s) and the resident's interpretation and agree with the findings, Katharine Ferreira MD at 12/10/2021 4:59 AM Thank you for letting us participate in the care of this patient. If you are a health care provider and have any questions regarding this report, please contact the number below. For patients who have questions please contact the health child care assistant that requested your imaging first. Electronically signed by: Katharine Ferreira MD, [facility] ([phone]), at 12/10/2021 4:59 AM Medications: Scheduled Meds: ??? sodium chloride 2 spray Each Nare BID ??? LORazepam 1 mg Oral TID ??? aspirin 81 mg Oral Daily ??? buPROPion SR 100 mg Oral BID ??? mirtazapine 45 mg Oral Nightly ??? tamsulosin 0.4 mg Oral Nightly ??? thiamine 100 mg Oral Daily ??? sodium chloride 0.9 % (flush) 5 mL Intravenous BID ??? enoxaparin 40 mg Subcutaneous Nightly ??? melatonin 3 mg Oral Nightly Continuous Infusions: PRN Meds:.albuteroL, polyethylene glycoL, senna-docusate, sodium chloride 0.9 % (flush), lidocaine, acetaminophen Radha Shankar, RN - 12/13/2021 4:08 AM EDT Illness Severity [x] Stable [] Watcher [] Unstable Patient Summary Reason for admission: altered mental status or catatonia Relevant PMH: dementia, bipolar disorder, HTN/HLD, BPH and recent PNA/UTI 12/12 PM: Sebas remained only oriented to self and sometimes place. He was cooperative and (mostly) calm. At the beginning of the shift, he perseverated in his belief that he wasn't able to breathe. Reassurance and education provided, to good effect. Urine sent for osmolality (see Results Review). Funk remained in place draining light, clear yellow urine. Sebas had no c/o pain and he slept comfortably most of the night. Action List Encourage PO intake - Dysphagia soft diet Scheduled ativan for anxiety Discharge Plan: D/C to rehab facility when medically appropriate Kei Tadeo RN - 12/12/2021 7:34 PM EDT Illness Severity [x] Stable [] Watcher [] Unstable Patient Summary Reason for admission: altered mental status or catatonia Relevant PMH: dementia, bipolar disorder, and recent PNA Significant 24 hour events: 99AM: Pt continued to improve today (no episodes of moaning/grunting, stayed alert and oriented x2-3-self, place and mostly time). Pt did complain of shob x2, but accepted explanation that he was breathing well (while talking, drinking and eating), and his vitals were stable. It was suggested to him that anxiety might be causing his perception of breathlessness, and that he should try to relax and breathe slowly. Pt requested saline nasal spray to help with some congestion, this was ordered and administered. OT got patient up to chair, he sat up for approx 2 hours. Pt compliant with all medications, at bedside most of the day. Monica Ortiz, OT - 12/12/2021 1:16 PM EDT Occupational Therapy Evaluation Patient profile: Per MD note, Sebas Shepherd Jr. is a 71 y.o. male admitted on 12/08/2021 male with past medical history of HTN, DLP, BPH, dementia, bipolar disorder who presented with altered mentalstatus. History reviewed. No pertinent past medical history. No past surgical history on file. Social History: (obtained from pt's and chart review 05/07 pt's AMS) Home Setup: Pt lives with his , daughter, LAURENCE and grandchildren in a 2 story home with 2 RAPHAEL. The pt lives on the first floor of the time. The bathroom has a tub shower with no chair or grab bars present. Functional Status: Pt had been independent with ADLs and mobility up until a few months ago. He would occasionally use a walking stick on uneven ground outside. Pt has had multiple hospitalizations over the last few months for PNA and UTIs, he was discharged on 12/04 from his most recent hospitalization. Equipment at home: FWW Fall history: Pt's reported that he had one fall about a month ago when he tripped over the sidewalk Precautions/Special Considerations: fall risk, DNR, Dysphagia soft diet with thin liquids, PIV, funk, up with assist Subjective: I can't breathe. Objective: Seen today for OT evaluation. ??? Vital Signs o HR: 70s throughout session o SpO2: 98% on RA ??? Pain: No complaints of pain ??? Cognitive Status/Behavior o Behavior / Mood: alert and flat affect o Alert and oriented to: person and place, pt able to report and December unable to report date o Follows commands: 1 step, 50% of the time, requires increased time and requires repetition o Attention: distractible, difficulty attending to task/directions and requires cues to redirect o Safety awareness: decreased insight into deficits ? ? Vision & Perception o Unable to formally assess due to AMS ?? Communication o Hypophonic ??? Musculoskeletal o Strength and ROM: grossly WFL, unable to formally assess due to AMS o Sensation: Denies numbness and tingling o Skin: intact ??? Activities of Daily Living: o Self-feeding: independent to drink fr[place] govind while sitting EOB and in chair o Grooming: set up assist to comb hair while sitting unsupported EOB, increased time and cues required to initiate task o Dressing: dependent to don socks o Bathing: Not assessed o Toileting: dependent, pt has funk catheter ??? Functional Mobility: o Supine to sit: min assist with HOB elevated, increased time and cues provided to initiate movement o Sit to stand: CGA with UE support from FWW, increased time provided o Ambulation: CGA to ambulate ~3 feet to recliner using FWW for UE support o Stand to sit: CGA with cues for safety o Sit to supine: Not assessed, pt left sitting in recliner with all needs met, call light in reach and chair alarm on, RN and at bedside at end of session ??? Balance o Sitting balance: good o Standing balance:good with UE support from FWW Education: family and patient have been educated on Role of occupational therapy/rehabilitation, Transfers, Assistive device/technique, ADL, Safety, Functional Mobility, Activity pacing/Energy conservation, Home Management, Balance, Recommendations and Discharge planning and verbalizes understanding. Patient status, treatment, and mobility recommendations discussed with nursing. Patient in chair with alarm set, call grewal within reach, and all needs met. Assessment: Pt has been seen for occupational therapy evaluation. Sebas Padgett Ingrid Cobos. presents with the following performance skill deficits and client factors: decreased activity tolerance, decreased flexibility/ROM, decreased sitting/standing balance, cognitive deficits, decreased postural control, deconditioning, compromised mobility status and coping. These performance deficits have led to activity limitations and participation restrictions in the following areas of occupation: dressing, bathing, grooming, toileting, self- feeding, transfers/mobility, home management, leisure, community mobility, communication and social participation. Pt presents alert with very flat affect, initially reluctant to work with therapy but agreeable to education. Pt was able to transition to sitting unsupported EOB to complete light grooming task, increased time and cues provided to initiate. Pt was then ableto transfer to recliner chair using FWW for UE support, cues provided for safety during transfer. Recommend pt be discharged to SF vs swing bed at rehab facility when medically ready to maximize pt outcomes. Pt would benefit from further inpatient OT interventions to address performance deficits and maximize participation and independence with occupations of daily living. Equipment needs at discharge: TBD at rehab Anticipated Discharge Disposition (OT): half-way facility, swing bed rehabilitation facility Other Recommendations: ?? Transfer to recliner chair as appropriate with 1 A using FWW, ambulate as tolerated ?? Encourage participation in ADL's by providing set up A on tray table and physical assist only as needed ?? Promote normalcy by encouraging participation in common daily tasks & leisure activities by providing set up assist ?? Encourage use of coping & calming strategies ?? Give choices when possible to support feelings of autonomy ?? Frequent orientation verbally & visually ?? Keep glasses, hearing aides, cell phones, tablets, etc within reach ?? Facilitate a normal sleep-wake cycle ?? Provide brief, clear instruction from one source at a time ?? Reduce extraneous stimulation ?? Provide calming music, favorite TV programs, magazines or newspapers ?? Bathroom or commode for toileting needs, if appropriate Other Recommendations: No other consults recommended at this time Goals: To be achieved by 12/27/21. Pt will complete toileting routine including transfer to the bathroom, clothing management, and hygiene with supervision assist and min cues. Pt will complete 2 grooming tasks standing at the sink with supervision assist and min cues. Pt will complete LB dressing with supervision assist using AE as needed. Pt will complete functional transfers and mobility with supervision assist for participation in ADLsusing self-pacing as needed and LRAD. Plan: OT: Therapy Frequency (OT): 2-3 times/wk Planned OT interventions: Role of occupational therapy/rehabilitation, Transfers, Assistive device/technique, Adaptive equipment training, ADL, Safety, Functional Mobility, Activity pacing/Energy conservation, Home Management, Balance, Recommendations and Discharge planning. Total Minutes, Occupational Therapy: 24 (13:16-13:40 Low complexity eval) 2017 OT Evaluation Code Rationale: ?? Diagnosis & Pertinent Co-Morbidities affecting Plan of Care: see PMHx ?? Occupational Profile & Client History: Brief Expanded Extensive x ?? Assessment of Occupational Performance: 1-3 performance deficits 3-5 performance deficits 5 + performance deficits x ?? Clinical Decision Making: Low Moderate High x Clinical decision making of low complexity using standardized patient assessment instrument and measurable assessment of functional outcome. Monica Ortiz OTR/L Pager: [phone] Occupational Therapy Rehabilitation Department Abdulkadir Jolley MD - 12/12/2021 12:19 PM EDT Images from the original note were not included. Hospital Medicine Attending Daily Progress Note Admit Date: 12/08/2021 ( Hospital Day 2 days ) Active Hospital Problems Diagnosis ??? Catatonia Resolved Hospital Problems No resolved problems to display. ASSESSMENT: Sebas Shepherd Jr. is a 71 y.o. male with past medical history of HTN, DLP, BPH, dementia, bipolar disorder who presented with altered mental status. Improved mentation today, speaking in short sentences and following some commands. No focal deficits, discussed with Psych and will continue current Ativan dosing. Hypernatremic again this morning with >6L UOP. Urine hypo-osmolar (154), spec grav 1.004, reports only remote lithium usage (thinks >10 years prior), ?DI. Discuss w Nephro. PLAN: # Probable catatonia # Altered mental status - psych input appreciated - scheduled midazolam 2 mg IV TID -> ativan 1 mg PO TID - r/o metabolic/ structural cause - defer MRI for now given improvement - consider neurology consult ?? #Hypernatremia - Nephrology consult; ?desmopresin challenge - patient drinking to thirst # Hypophosphatemia 1.2 - s/p potassium phosphate IV with improvement, now above normal range; d/c scheduled PO phos - will follow BMP, Phos ? # Bipolar disorder - resume bupropion 100 mg po bid - resume mirtazapine 45 mg po hs ?? # Recent UTI and pneumonia - improving per his ?? # BPH - resume tamsulosin 0.4 mg po daily Diet Dysphagia Soft Diet Discharge planning TBD PT/OT/Speech Ordered Lines/Access PIV Funk catheter No DVT/GI Prophylaxis Lovenox Vital/lab/FS frequency Vitals Q6H, Labs Qdaily Code status Do NOT Attempt CPR - Inpatient Family Sisi Shepherd (spouse) [phone] PCP Jose Eduardo Barboza MD [phone] Attestation IPI Certification I certify that I am a D-H credentialed attending provider with admitting privileges and that the patient meets or has met medical necessity to require an inpatient IPI level of care meeting a minimum of two midnights or is on the [facility] inpatient only procedure list (status C) due to: catatonia requiringIV benzodiazepine therapy Team (26/10 Coverage) 2500 PCP: MD Abdulkadir Camejo MD [facility] 12/12/2021 Subjective/24hr events: - Pt seen and examined at bedside - reports thirst this morning and difficulty breathing ROS: unable to assess Vitals: Last value Range last 24 hrs Temperature Temp: 36.6 ??C (97.9 ??F) Temp: [36.4 ??C (97.5 ??F)-36.8 ??C (98.2 ??F)] Heart Rate Heart Rate: (!) 49 Heart Rate: [49-62] Blood Pressure BP: 161/80 BP: (110-161)/(63-80) Respiratory Rate Resp: 20 Resp: [16-22] SpO2 SpO2: 100 % SpO2: [97 %-100 %] Intake/Output Summary (Last 24 hours) at 12/12/2021 1219 Last data filed at 12/12/2021 1200 Gross per 24 hour Intake 3540 ml Output 7575 ml Net -4035 ml EXAM GEN: Lying in bed comfortably, NAD, on RA, breathing comfortably, occasionally speaking in short sentences HEENT: Anicteric, no conjunctival pallor, EOMI, PERRL CVS: RRR, S1+S2+no added sounds CHEST: CTABL, no added sounds ABD: Soft, ND/NT, BS+ron NEURO: AAO*3, no focal deficits. PSYCH: Normal mood and affect EXT: No edema. Mild cogwheel rigidity. Mild resting tremors. SKIN: No rash or open wounds LABS: Reviewed in eDH. Remarkable for the following: Recent Labs 12/12/2143212/11/2143712/10/21455 WBC 10.7* 11.2* 11.3* HGB 13.6* 12.9* 13.5* HCT 40.3* 37.9* 40.3* PLATELET 275 284 324 Recent Labs 12/12/2143212/11/2143712/10/21455 NA 146* 142 146* K 3.8 3.5 3.8 CL 116* 109* 114* CO2 23 22 20* BUN 7* 8* 10 CREATININE 1.19 1.31 1.27 GLUCOSE 84 83 95 CALCIUM 8.8 8.5 8.7 PHOS 3.8 4.7* 3.3 No results for input(s): AST, ALT, ALKPHOS, BILITOT, BILIDIR in the last 72 hours. MICRO: No results for input(s): URINECULTURE in the last 720 hours. No results for input(s): BLOODCX in the last 720 hours. COVID 19 PCR : Microbiology Results (Last 30 days) No results found for the last 720 hours. STUDIES: Results for orders placed or performed during the hospital encounter of 12/08/21 XR Ankle Min 3 views Right (Generic) (Exam End: 12/08/2021 4:25 PM) Impression No acute fracture or malalignment of the RIGHT ankle. I have personally reviewed the image(s) and the resident's interpretation and agree with the findings, Aye Serra MD at 12/08/2021 5:05 PM Thank you for letting us participate in the care of this patient. If you are a health care provider and have any questions regarding this report, please contact the number below. For patients who have questions please contact the health child care assistant that requested your imaging first. Chest One View (Exam End: 12/10/2021 4:32 AM) Impression No acute cardiopulmonary findings. Preliminary report signed by: Kailash More at 12/10/2021 4:43 AM I have personally reviewed the image(s) and the resident's interpretation and agree with the findings, Katharine Ferreira MD at 12/10/2021 4:59 AM Thank you for letting us participate in the care of this patient. If you are a health care provider and have any questions regarding this report, please contact the number below. For patients who have questions please contact the health child care assistant that requested your imaging first. Electronically signed by: Katharine Ferreira MD, [facility] ([phone]), at 12/10/2021 4:59 AM Medications: Scheduled Meds: ??? LORazepam 1 mg Oral TID ??? aspirin 81 mg Oral Daily ??? buPROPion SR 100 mg Oral BID ??? mirtazapine 45 mg Oral Nightly ??? tamsulosin 0.4 mg Oral Nightly ??? thiamine 100 mg Oral Daily ??? sodium chloride 0.9 % (flush) 5 mL Intravenous BID ??? enoxaparin 40 mg Subcutaneous Nightly ??? melatonin 3 mg Oral Nightly Continuous Infusions: PRN Meds:.albuteroL, polyethylene glycoL, senna-docusate, sodium chloride 0.9 % (flush), lidocaine, acetaminophen Allyson Flores RN - 12/12/2021 6:22 AM EDT Patient Summary Reason for admission: altered mental status or catatonia Relevant PMH: dementia, bipolar disorder, and recent PNA Significant 24 hour events: 12/11 PM: Pt did not answer orientation questions at time of assessment. Pt repeated that he couldn'tbreathe. college service officer assessed and administered HS meds. Pt did not complete neb tx. O2 via n/c applied for comfort and fan set on high and set up on patient's table. Pt appeared to be resting comfortably with eyes closed at times of reassessment. called for update about the start of the shift. informed that pt was resting with eyes closed, at that time. Jade Livingston Yuriy - 12/11/2021 1:21 PM EDT [facility] Hospital Medicine Medical Student Daily Progress Note Admit Date: 12/08/2021 Hospital Day 1 day Active Hospital Problems Diagnosis ??? Catatonia Resolved Hospital Problems No resolved problems to display. PMH Active Non-Hospital Problems Diagnosis ??? Altered mental status ??? Obtundation ??? Bipolar I disorder, most recent episode (or current) manic, moderate Inpatient Medications: Scheduled ??? LORazepam 1 mg Oral TID ??? aspirin 81 mg Oral Daily ??? buPROPion SR 100 mg Oral BID ??? mirtazapine 45 mg Oral Nightly ??? tamsulosin 0.4 mg Oral Nightly ??? thiamine 100 mg Oral Daily ??? sodium chloride 0.9 % (flush) 5 mL Intravenous BID ??? enoxaparin 40 mg Subcutaneous Nightly ??? melatonin 3 mg Oral Nightly Continuous infusions: ??? lactated Ringers 1,000 mL (12/11/21 1004) PRN: albuteroL, polyethylene glycoL, senna-docusate, sodium chloride 0.9 % (flush), lidocaine, acetaminophen Interval History: Mr. Shepherd has been much more expressive today but is not comfortable. He feels short of Breath and hungry, but cannot eat the breakfast he was given due to difficulties eating it. He is aware that he has been eating poorly but does not recall any events over the last two days. He has not been catatonic this morning yet, but does get quiet sometimes when he doesn't want to talk. Denies right anklepain and nausea. ROS: Review of Systems Constitutional: Positive for??anorexia. Negative for??diaphoresis,??fever??and chills. Respiratory: Positive for shortness of breath. Negative for??cough??and wheezing. ?? Gastrointestinal: Negative for??vomiting??and nausea. HENT: Negative for??sinus pressure. ?? Psychiatric/Behavioral: Positive for??depression. Musculoskeletal: Negative for joint pain. Endocrine: Negative for??polyphagia??and polyuria. Cardiovascular: Negative for??palpitations??and syncope. Skin: Negative for??erythema.?? Physical Exam Vitals Range last 24 hrs Temperature Temp: [36.5 ??C (97.7 ??F)-37.2 ??C (99 ??F)] Heart Rate Heart Rate: -- Blood Pressure BP: (109-157)/(58-78) Respiratory Rate Resp: [18-20] SpO2 SpO2: [98 %-99 %] Intake/Output Summary (Last 24 hours) at 12/11/2021 1322 Last data filed at 12/11/2021 1151 Gross per 24 hour Intake 4308 ml Output 2600 ml Net 1708 ml No data found. There is no height or weight on file to calculate BMI. Physical Exam Constitutional: ?General: He is overall quieter today and has been seen talking to his and staff and is able to follow commands, but has expressive aphasia. ?Appearance: Normal appearance. HENT: ?Head: Normocephalic??and atraumatic. ?Nose: Nose normal. ?Mouth/Throat: ?Mouth: Mucous membranes are moist. No dental caries noted. Eyes: ?General: No scleral icterus. ?Conjunctiva/sclera: Conjunctivae normal. ?Pupils: Pupils are equal, round, and reactive to light. Cardiovascular: ?Rate and Rhythm: Normal rate??and regular rhythm. ?Heart sounds: No murmur??heard. ?No friction rub. No??gallop. Pulmonary: ?Effort: Pulmonary effort is normal. No??respiratory distress. ?Breath sounds: Normal breath sounds. No??stridor. No??wheezing,??rhonchi??or rales. Abdominal: ?General: Abdomen is flat. Bowel sounds are??normal. There is no??distension. ?Palpations: Abdomen is soft. ?Tenderness: There is no abdominal tenderness. There is no??guarding??or rebound. Musculoskeletal: ?General: No swelling. ?Cervical back: Normal range of motion. No??rigidity??or tenderness. ?Right lower leg: No edema. ?Left lower leg: No edema. Skin: ?Capillary Refill: Capillary refill takes less than 2 seconds. ?Findings: No erythema. Neurological: ?General: No focal deficit??present. ?Expressive aphasia noted. A&O x2 to name and place. ?? Studies reviewed in eDH. Remarkable for the following: LABS: Recent Results (from the past 24 hour(s)) Phosphorus Result Value Ref Range Phosphorus 4.7 (H) 2.5 - 4.5 mg/dL Basic Metabolic Panel (non-fasting) Result Value Ref Range Glucose Lvl 83 65 - 199 mg/dL BUN 8 (L) 10 - 20 mg/dL Creatinine 1.31 0.80 - 1.50 mg/dL Sodium 142 135 - 145 mmol/L Potassium 3.5 3.5 - 5.0 mmol/L Chloride 109 (H) 98 - 107 mmol/L CO2 22 22 - 31 mmol/L Anion Gap 11 5 - 15 mmol/L Calcium 8.5 8.5 - 10.5 mg/dL Estimated GFR 59 (L) >=60 mL/min/1.73 m?? Hemogram Result Value Ref Range WBC 11.2 (H) 4.0 - 9.5 x10(3)/mcL RBC 4.15 (L) 4.58 - 5.54 x10(6)/mcL Hemoglobin 12.9 (L) 13.7 - 16.5 g/dL Hematocrit 37.9 (L) 40.5 - 48.5 % MCV 91.3 82.9 - 93.1 fL MCH 31.1 27.5 - 32.1 pg MCHC 34.0 32.0 - 35.7 g/dL Platelets 284 145 - 357 x10(3)/mcL RDWSD 47.8 (H) 36.0 - 45.0 fL RDWCV 14.3 (H) 11.4 - 13.8 % MPV 10.4 7.6 - 12.9 fL nRBC % Auto 0.0 % nRBC Abs Auto 0.000 0.000 - 0.000 x10(3)/mcL Differential, Automated Result Value Ref Range Neutrophils % 57.1 % Neutr Abs (ANC) 6.36 (H) 1.70 - 6.10 x10(3)/mcL Lymphocytes % 28.6 % Lymphocytes Abs 3.2 0.9 - 3.2 x10(3)/mcL Monocytes % 8.6 % Monocyte Abs 1.0 (H) 0.3 - 0.9 x10(3)/mcL Eosinophils % 4.8 % Eosinophils Abs 0.5 (H) 0.0 - 0.4 x10(3)/mcL Basophils % 0.5 % Basophils Abs 0.1 0.0 - 0.1 x10(3)/mcL Immature Gran % 0.40 % Nasreen Gran Abs 0.05 (H) 0.00 - 0.04 x10(3)/mcL FSBG Trend No results for input(s): POCGLU in the last 72 hours. MICRO: No results for input(s): URINECULTURE in the last 720 hours. No results for input(s): GRAMSTAIN, BFCX, LOWERRESPCX, TISSUECX in the last 720 hours. No results for input(s): BLOODCX in the last 720 hours. ECG: Recent Labs 12/10/21 0405 DIAGLINE Sinus rhythm with 1st degree A-V block Left bundle branch block Abnormal ECG When compared with ECG of 08-DEC-2021 17:16, MO interval has increased T wave inversion now evident in Inferior leads T wave inversion more evident in Lateral leads I personally reviewed the tracing and edited the fellows interpretation Confirmed by fellow MD Daily Andrew ([id number]) on 12/10/2021 1:40:27 PM Confirmed by Marge Torres ([id number]) on 12/10/2021 1:53:13 PM QTCCALC 486 VASCULAR: No results for input(s): VBTEXTRPT in the last 720 hours. IMAGING: Results for orders placed or performed during the hospital encounter of 12/08/21 XR Ankle Min 3 views Right (Generic) (Exam End: 12/08/2021 4:25 PM) Narrative EXAMINATION: XR ANKLE MIN 3 VIEWS RIGHT (GENERIC) CLINICAL HISTORY: right ankle pain TECHNIQUE: 3 views RIGHT ankle COMPARISON: None FINDINGS: No acute fracture or malalignment. No osseous fragments or bony step-off. Calcaneal enthesophyte. Talar dome is intact. Congruent tibiotalar joint space with adequate tibiofibular overlap on all projections. No soft tissue edema or gas. No soft tissue calcification. Impression No acute fracture or malalignment of the RIGHT ankle. I have personally reviewed the image(s) and the resident's interpretation and agree with the findings, Aye Serra MD at 12/08/2021 5:05 PM Thank you for letting us participate in the care of this patient. If you are a health care provider and have any questions regarding this report, please contact the number below. For patients who have questions please contact the health child care assistant that requested your imaging first. Chest One View (Exam End: 12/10/2021 4:32 AM) Narrative EXAMINATION: XR CHEST ONE VIEW CLINICAL HISTORY: SOB, desat r/o aspiration TECHNIQUE: 1 view of the chest AP supine, one image COMPARISON: Chest radiograph 12/02/2021 FINDINGS: Patient's rotation confounds evaluation. Chronic elevation of right hemidiaphragm. No consolidation, pleural effusion or pneumothorax. Unchanged cardiomediastinal silhouette and osseous structures. Unremarkable upper abdomen. Impression No acute cardiopulmonary findings. Preliminary report signed by: Kailash More at 12/10/2021 4:43 AM I have personally reviewed the image(s) and the resident's interpretation and agree with the findings, Katharine Ferreira MD at 12/10/2021 4:59 AM Thank you for letting us participate in the care of this patient. If you are a health care provider and have any questions regarding this report, please contact the number below. For patients who have questions please contact the health child care assistant that requested your imaging first. Electronically signed by: Katharine Ferreira MD, [facility] ([phone]), at 12/10/2021 4:59 AM Film Library- Storage Only CT Head (Exam End: 11/23/2021 12:00 AM) Narrative This exam is auto-finalizing. It's purpose is for storage only. Film Library- Storage Only DX Chest (Exam End: 11/23/2021 12:05 AM) Narrative This exam is auto-finalizing. It's purpose is for storage only. Film Library- Storage Only DX Chest (Exam End: 11/29/2021 12:00 AM) Narrative This exam is auto-finalizing. It's purpose is for storage only. Film Library- Storage Only DX Chest (Exam End: 12/02/2021 12:00 AM) Narrative This exam is auto-finalizing. It's purpose is for storage only. Film Library- Storage Only CT Head (Exam End: 12/02/2021 12:05 AM) Narrative This exam is auto-finalizing. It's purpose is for storage only. OTHER Studies: N/A Assessment??and Plan: ?? 71 yo male with PMH dementia, bipolar disorder, and recent PNA presented on 12/08 for right ankle pain and general evaluation. He has become more withdrawn over the last few months and lost 30+lbs. Upon questioning his , she says that he has only been eating small amounts of fruits here and there and often will prefer softer ones.He stays hydrated at home. His last manic episode was 2+ years ago, he has no Hx of seizures, and has not seen a dentist in 2+ years. He has been bitten by ticks before but did not have the ticks worked up by infectious disease or pathology. He recently told his that he feels depressed. His Ativan was recently decreased from 2 g to 1 g by his outpatient p hysician. He had a recent PNA and UTI for which he was treated with cefuroxime but was not asked to change any other medications while taking this Abx. His last dose of cefuroxime was 12/09. He also complains about right ankle pain which had a negative Xray of the ankle for fracture. He has an appointment scheduled with neurology at the end of the month to pursue these symptmos further. He has been described as catatonic. Psychiatry was consulted and wanted to try giving him midazolam to see improvement. He had a straight catheter inserted on 12/09 for 1+ L urinary retention, after which he visually and auditorily sounded relieved, however he still moaned and yelled for hours after.? #Worsening dementia and depression with anorexia and 30+ weight loss over 3 months -Psychiatry suggests switching from IV to PO to maintain more consistent trough levels. Suggest PO Ativan tid. -Continue midazolam -Brain MRI deferred for now due to improving overall condition and concern that anesthesia may drivehim back into catatonia. -Hx includes significant anorexia, unchecked tick bites but with negative PCR results, depression, manic episodes 2+ years ago, dentist 2+ years ago, recent Ativan change from 2g to 1g -Psychiatry consulted and appreciated. Has been receiving midazolam, and today looked slightly improved. Unsure of what may have precipitated catatonia at this time. -Consider PT/OT -Change to soft diet for improved nutrition #Right ankle pain, resolved ? -Xray of the ankle negative for fracture -Question if has frequent falls since anorexia and weight loss -Tylenol 650 mg q6h PRN -Consider PT/OT #Hyperphosphatemia secondary to phosphate infusion -Stop phosphate infusion #Recent PNA and UTI -Cefuroxime finished -Consider re evaluate with repeat chest X ray outpatient ?? IV access: Tubes/Drains:??catheter DVT PPX:??lovenox Anticipated Disposition: home or facility when medically ready Goals of Care: Team Pager( Coverage 26/10): #[phone] PCP: Jose Eduardo Barboza MD [phone] Attestation: Jade Livingston 12/11/2021 Abdulkadir Jolley MD - 12/11/2021 11:21 AM EDT Images from the original note were not included. Hospital Medicine Attending Daily Progress Note Admit Date: 12/08/2021 ( Hospital Day 1 day ) Active Hospital Problems Diagnosis ??? Catatonia Resolved Hospital Problems No resolved problems to display. ASSESSMENT: Sebas Shepherd Jr. is a 71 y.o. male with past medical history of HTN, DLP, BPH, dementia, bipolar disorder who presented with altered mental status. Improved mentation today, speaking in short sentences and following some commands. No focal deficits, discussed w Psych and will transition benzos to PO. Defer MRI at this time given improvement as it would require general anesthesia- suspect this would be a setback to patient's mental status. PLAN: # Probable catatonia # Altered mental status - psych input appreciated - scheduled midazolam 2 mg IV TID -> ativan 1 mg PO TID - r/o metabolic/ structural cause - obtain MRI brain, folate- pending, vit B 12 - normal, TSH - normal - consider neurology consult ?? # Hypophosphatemia 1.2 - s/p potassium phosphate IV with improvement, now above normal range; d/c scheduled PO phos - will follow BMP, Phos ? # Bipolar disorder - resume bupropion 100 mg po bid - resume mirtazapine 45 mg po hs ?? # Recent UTI and pneumonia - improving per his ?? # BPH - resume tamsulosin 0.4 mg po daily Diet Dysphagia Soft Diet Discharge planning TBD PT/OT/Speech Ordered Lines/Access PIV Funk catheter No DVT/GI Prophylaxis Lovenox Vital/lab/FS frequency Vitals Q6H, Labs Qdaily Code status Do NOT Attempt CPR - Inpatient Family Sisi Shepherd (spouse) [phone] PCP Jose Eduardo Barboza MD [phone] Attestation IPI Certification I certify that I am a [facility] credentialed attending provider with admitting privileges and that the patient meets or has met medical necessity to require an inpatient IPI level of care meeting a minimum of two midnights or is on the [facility] inpatient only procedure list (status C) due to: catatonia requiringIV benzodiazepine therapy Team (26/10 Coverage) [phone] PCP: MD Abdulkadir Camejo MD [facility] 12/11/2021 Subjective/24hr events: - Pt seen and examined at bedside - appears comfortable this morning, speaking in short sentences ROS: unable to assess Vitals: Last value Range last 24 hrs Temperature Temp: 36.8 ??C (98.2 ??F) Temp: [36.5 ??C (97.7 ??F)-37.3 ??C (99.1 ??F)] Heart Rate Heart Rate: 70 Heart Rate: -- Blood Pressure BP: 157/78 BP: (109-157)/(58-81) Respiratory Rate Resp: 20 Resp: [18-24] SpO2 SpO2: 99 % SpO2: [98 %-99 %] Intake/Output Summary (Last 24 hours) at 12/11/2021 1121 Last data filed at 12/11/2021 1004 Gross per 24 hour Intake 4308 ml Output 2725 ml Net 1583 ml EXAM GEN: Lying in bed comfortably, NAD, on RA, breathing comfortably, occasionally speaking in short sentences HEENT: Anicteric, no conjunctival pallor, EOMI, PERRL CVS: RRR, S1+S2+no added sounds CHEST: CTABL, no added sounds ABD: Soft, ND/NT, BS+ron NEURO: AAO*3, no focal deficits. PSYCH: Normal mood and affect EXT: No edema. Mild cogwheel rigidity. Mild resting tremors. SKIN: No rash or open wounds LABS: Reviewed in eDH. Remarkable for the following: Recent Labs 12/11/2143712/10/21 0456 12/09/21 1054 WBC 11.2* 11.3* 9.9* HGB 12.9* 13.5* 15.1 HCT 37.9* 40.3* 43.0 PLATELET 284 324 368* Recent Labs 12/11/21 0438 12/10/21 0456 12/09/21 1054 12/08/21 1657 NA 142 146* 142 140 K 3.5 3.8 3.3* 4.0 CL 109* 114* 107 107 CO2 22 20* 20* 21* BUN 8* 10 9* 7* CREATININE 1.31 1.27 1.17 1.11 GLUCOSE 83 95 94 102 CALCIUM 8.5 8.7 9.5 9.8 MAGNESIUM -- -- 0.72 0.79 PHOS 4.7* 3.3 1.2* 1.2* Recent Labs 12/08/21 1657 AST 23 ALT 25 ALKPHOS 94 BILITOT 0.2 BILIDIR 0.1 MICRO: No results for input(s): URINECULTURE in the last 720 hours. No results for input(s): BLOODCX in the last 720 hours. COVID 19 PCR : Microbiology Results (Last 30 days) No results found for the last 720 hours. STUDIES: Results for orders placed or performed during the hospital encounter of 12/08/21 XR Ankle Min 3 views Right (Generic) (Exam End: 12/08/2021 4:25 PM) Impression No acute fracture or malalignment of the RIGHT ankle. I have personally reviewed the image(s) and the resident's interpretation and agree with the findings, Aye Serra MD at 12/08/2021 5:05 PM Thank you for letting us participate in the care of this patient. If you are a health care provider and have any questions regarding this report, please contact the number below. For patients who have questions please contact the health child care assistant that requested your imaging first. Chest One View (Exam End: 12/10/2021 4:32 AM) Impression No acute cardiopulmonary findings. Preliminary report signed by: Kailash More at 12/10/2021 4:43 AM I have personally reviewed the image(s) and the resident's interpretation and agree with the findings, Ktaharine Ferreira MD at 12/10/2021 4:59 AM Thank you for letting us participate in the care of this patient. If you are a health care provider and have any questions regarding this report, please contact the number below. For patients who have questions please contact the health child care assistant that requested your imaging first. Electronically signed by: Katharine Ferreira MD, [facility] ([phone]), at 12/10/2021 4:59 AM Medications: Scheduled Meds: ??? aspirin 81 mg Oral Daily ??? buPROPion SR 100 mg Oral BID ??? mirtazapine 45 mg Oral Nightly ??? tamsulosin 0.4 mg Oral Nightly ??? thiamine 100 mg Oral Daily ??? sodium chloride 0.9 % (flush) 5 mL Intravenous BID ??? enoxaparin 40 mg Subcutaneous Nightly ??? melatonin 3 mg Oral Nightly ??? midazolam (PF) 2 mg Intravenous TID Continuous Infusions: ??? lactated Ringers 1,000 mL (12/11/21 1004) PRN Meds:.albuteroL, polyethylene glycoL, senna-docusate, sodium chloride 0.9 % (flush), lidocaine, acetaminophen Yoko Dexter, PT - 12/11/2021 9:35 AM EDT Physical Therapy Evaluation Patient profile: Sebas Shepherd Jr. is a 71 y.o. male with past medical history of HTN, DLP, BPH, dementia, bipolar disorder who presented with altered mental status. Patient with the following active problems: History reviewed. No pertinent past medical history. No past surgical history on file. Active Non-Hospital Problems Diagnosis ??? Altered mental status ??? Obtundation ??? Bipolar I disorder, most recent episode (or current) manic, moderate Social History: Home set-up: lives with his , daughter, LAURENCE, and grandchildren in a 2-story home Stairs: 2 RAPHAEL main level, per pt's pt needs assistance to ascend/descend 2 steps into home Baseline Mobility: pt was independent without a device up until a few months ago, would occasionallyuse a walking stick outside. It appears pt has had multiple hospitalizations over the last few months, most recently hospitalized for PNA and UTI, discharged home 12/04. He has been complaining of R ankle pain which has limited his ability to mobilize OOB for the last ~2 weeks (x-ray negative for fracture). Equipment at home: FWW Fall history: pt's , Sisi, reports pt fell ~1 month ago, tripped over sidewalk Precautions/Special Considerations: Fall risk Lines: PIV, nasal cannula Activity Orders: up with assistance Diet: regular Mobility and Positioning Recommendations: ?? Pt. to utilize 1-2 assist and FWW for ambulation and transfers with nursing. ?? Please encourage up to chair for meal times as able. ?? Pt encouraged to ambulate frequently with staff, getting into the bathroom for toileting and walking out in the degroot >/= 3 times daily as able. Subjective: ???It's hard to breathe?? Objective: Pt seen for evaluation today. Pain: denied pain, did state that it was hard to breathe when asked if he was having any pain. RN aware. Asked specifically about R ankle pain, pt denied. Vital Signs: At Rest With Activity SpO2 (2L O2) 99% 98% HR 54 bpm 56 bpm Mental Status: alert, oriented to [facility] (could not name [facility]). Knew it [id number], could not name the month. Cooperative throughout, flat affect. Needed increased time and cueing to complete tasks. Vision: WFL Skin: no skin concerns noted, see lines above Musculoskeletal: ROM: WFL Strength: generalized deconditioning noted Bed Mobility: Supine to Sit: SBA with HOB elevated Sit to Supine: n/a- pt in chair at end of session Transfers: Sit to Stand: min A x 2 Stand to Sit: min A x 2 Bed to Chair: min A x 2 Gait: Distance: A few steps from bed>chair Device used: none (hand held assist) Level of assist: Min A x 2 Gait mechanics: short steps, mildly unsteady- would benefit from a FWW for mobility Stairs: n/a Balance: Sitting Static: good Sitting Dynamic: good Standing Static: fair Standing Dynamic / Gait: fair Education: family and patient has been educated on Bed mobility, Transfers, Safety , Gait , Activitypacing/Energy conservation, Role of therapy, Balance and Discharge planning and verbalizes understanding, pt need reinforcement Patient status, treatment, and mobility recommendations discussed with nursing. Assessment: Sebas Shepherd Jr. was seen today for physical therapy evaluation. Pt presents with impaired strength and balance, as well as impaired cognition. He would benefit from inpatient rehab at d/c to maximize independence with functional mobility. The pt would benefit from skilled therapy services while in the hospital to maximize functional abilities. Discharge Recommendations: Based on the current findings, Anticipated Discharge Disposition (PT): half-way facility, swing bed rehabilitation facility when medically ready for hospital discharge. Consult Recommendations: Occupational therapy consult Equipment needs: Anticipated Equipment Needs at Discharge (PT): to be determined Goals: To be achieved by 12/25/21: 1. Pt. to demonstrate knowledge of safety limitations and precautions and will appropriately requestassistance for functional activities and to mobilize. 2. Pt. to demonstrate understanding of appropriate exercises. 3. Pt. to perform bed mobility independently. 4. Pt. to perform all transfers with modified independence using the LRAD. 5. Pt. to ambulate 150 feet with modified independence using a the LRAD. 6. Pt. to ambulate up/down 2 step/stairs using one hand hold with min A. 7. Family or caregiver to demonstrate understanding of therapeutic interventions to support the careof the patient. Plan: Therapy Frequency (PT): 2-4 times/wk for therapy including balance training, bed mobility training, gait training, home exercise program, patient/family education, stair training, strengthening and transfer training. Patient/family understand and agree with plan as stated above. PT Evaluation Code Rationale: ?? Diagnosis & Pertinent Co-Morbidities, personal factors, and present illness affecting Plan ofCare: (see above); Additional personal factors or co- morbidities that impact plan: ?? Total # of Factors: 0 1-2 3+ x ?? Examination of body system impairments, functional limitations and behaviors, and/or participation restrictions. Addressing 1-2 elements Addressing 3 + elements x Addressing 4 + elements ?? Clinical presentation: See assessment above. Stable/Uncomplicated Evolving/Fluctuating Symptoms Unstable/Unpredictable x ?? Clinical decision making of moderate complexity based on pt's functional performance as outlined in this evaluation. Time IN / OUT: 1208-3726 Total Minutes, Physical Therapy: 20 Yoko Dexter, PT Pager: [phone] Physical Therapy Inpatient Rehabilitation Department Priti Grey RN - 12/11/2021 1:09 AM EDT OUTCOME EVALUATION NOTE: OUTCOME SUMMARY: Patient is alert and oriented to self and place. He follows simple commands and can make his needs known.Pt request bed mao and has bowel movement . was present and assisted with meal in which patient ate a significant amount. Patient is turn and reposition in the bed funk in place. Pt takes hispills with no complications he denies pain and neurological deficits. Bed alarm unit controller carmina slaughter continue to monitor at this time. PLAN MOVING FORWARD: Regular diet Vitals signs Q6hrs Continuous pulse Ox INDIVIDUALIZED FALL PREVENTION INTERVENTIONS: Patient-specific fall risk factors per assessment: Hospital setting Assistance: SBA, 2 assist, FWW, gait belt, Stand & Pivot, Mechanical Lift, Bedrest w/ Q2hr turns Supervision: Eyes on, Arms reach, Hands on Surveillance: Bed locked in low position, call grewal within reach, purposeful hourly rounding, bed/chair alarm on, clutter free room, family at bedside Patient-specific fall prevention interventions for sensory deficits provided: No CPG GOAL OUTCOME EVALUATION: Continue care plan as documented. Shirley Perrin RN - 12/10/2021 7:49 PM EDT Illness Severity [x] Stable [] Watcher [] Unstable Patient Summary Reason for admission: altered mental status or catatonia Relevant PMH: dementia, bipolar disorder, and recent PNA Significant 24 hour events: 12/10 AM: Disorientedx4. Intermittently answering questions. VSS on RA. LR infusing @ 100 mL/hr. 500 mL D5 bolus per JUN. Funk in place draining adequate CYU. Endorsed difficulty breathing and chest pain today, MD notified, at bedside to assess pt. Continuing to refuse PO meds, spitting them out. BrainMRI attempted this evening, PRN ativan given prior to MRI. Pt unable to tolerate, will need to be rescheduled with anesthesia, MD notified. at bedside throughout day, supportive of patient. Action List MRI brain - needs anesthesia IVF Encourage PO intake Jade Livingston - 12/10/2021 3:20 PM EDT [facility] Medicine Medical Student Daily Progress Note Admit Date: 12/08/2021 Hospital Day 0 days Active Hospital Problems Diagnosis ??? Catatonia Resolved Hospital Problems No resolved problems to display. PMH Active Non-Hospital Problems Diagnosis ??? Altered mental status ??? Obtundation ??? Bipolar I disorder, most recent episode (or current) manic, moderate Inpatient Medications: Scheduled ??? aspirin 81 mg Oral Daily ??? buPROPion SR 100 mg Oral BID ??? mirtazapine 45 mg Oral Nightly ??? tamsulosin 0.4 mg Oral Nightly ??? thiamine 100 mg Oral Daily ??? sodium chloride 0.9 % (flush) 5 mL Intravenous BID ??? enoxaparin 40 mg Subcutaneous Nightly ??? melatonin 3 mg Oral Nightly ??? midazolam (PF) 2 mg Intravenous TID ??? potassium, sodium phosphates 1.5 g Oral TID WC Continuous infusions: ??? lactated Ringers 1,000 mL (12/10/21 07) PRN: LORazepam, polyethylene glycoL, senna-docusate, sodium chloride 0.9 % (flush), lidocaine, acetaminophen Interval History: Mr. Shehperd had a rough night with an episode of apnea for 10-15 seconds and desat to 63% O2. He was given 3L on NC and resatted to near 100%. He had been moaning and yelling all night, but this morning came to with his and asked her to order a breakfast. He also asked her to kiss him on the cheek among a few other things. He resumed to moaning soon after and was not able to eat it when it arrived. Since then he has been talking to her intermittently more, but seems to have a difficult time searching for words. He does not answer any questions from staff. ROS: Review of Systems Constitutional: Positive for anorexia. Negative for diaphoresis, fever and chills. Respiratory: Negative for cough and wheezing. Gastrointestinal: Negative for vomiting and nausea. HENT: Negative for sinus pressure. Psychiatric/Behavioral: Positive for depression. Musculoskeletal: Positive for joint pain. Endocrine: Negative for polyphagia and polyuria. Cardiovascular: Negative for palpitations and syncope. Skin: Negative for erythema. Physical Exam Vitals Range last 24 hrs Temperature Temp: [36.8 ??C (98.2 ??F)-37.3 ??C (99.1 ??F)] Heart Rate Heart Rate: -- Blood Pressure BP: (111-157)/(56-81) Respiratory Rate Resp: [14-24] SpO2 SpO2: [63 %-100 %] Intake/Output Summary (Last 24 hours) at 12/10/2021 1521 Last data filed at 12/10/2021 1407 Gross per 24 hour Intake 2445 ml Output 4200 ml Net -1755 ml No data found. There is no height or weight on file to calculate BMI. Physical Exam Constitutional: General: He is overall quieter today and has been seen talking to his but has expressive aphasia. Appearance: Normal appearance. HENT: Head: Normocephalic and atraumatic. Nose: Nose normal. Mouth/Throat: Mouth: Mucous membranes are moist. No dental caries noted. Eyes: General: No scleral icterus. Conjunctiva/sclera: Conjunctivae normal. Pupils: Pupils are equal, round, and reactive to light. Cardiovascular: Rate and Rhythm: Normal rate and regular rhythm. Heart sounds: No murmur heard. No friction rub. No gallop. Pulmonary: Effort: Pulmonary effort is normal. No respiratory distress. Breath sounds: Normal breath sounds. No stridor. No wheezing, rhonchi or rales. Abdominal: General: Abdomen is flat. Bowel sounds are normal. There is no distension. Palpations: Abdomen is soft. Tenderness: There is no abdominal tenderness. There is no guarding or rebound. Musculoskeletal: General: No swelling. Cervical back: Normal range of motion. No rigidity or tenderness. Right lower leg: No edema. Left lower leg: No edema. Skin: Capillary Refill: Capillary refill takes less than 2 seconds. Findings: No erythema. Neurological: General: No focal deficit present. Expressive aphasia noted Studies reviewed in eDH. Remarkable for the following: LABS: Recent Results (from the past 24 hour(s)) Phosphorus Result Value Ref Range Phosphorus 3.3 2.5 - 4.5 mg/dL Basic Metabolic Panel (non-fasting) Result Value Ref Range Glucose Lvl 95 65 - 199 mg/dL BUN 10 10 - 20 mg/dL Creatinine 1.27 0.80 - 1.50 mg/dL Sodium 146 (H) 135 - 145 mmol/L Potassium 3.8 3.5 - 5.0 mmol/L Chloride 114 (H) 98 - 107 mmol/L CO2 20 (L) 22 - 31 mmol/L Anion Gap 12 5 - 15 mmol/L Calcium 8.7 8.5 - 10.5 mg/dL Estimated GFR 61 >=60 mL/min/1.73 m?? Hemogram Result Value Ref Range WBC 11.3 (H) 4.0 - 9.5 x10(3)/mcL RBC 4.47 (L) 4.58 - 5.54 x10(6)/mcL Hemoglobin 13.5 (L) 13.7 - 16.5 g/dL Hematocrit 40.3 (L) 40.5 - 48.5 % MCV 90.2 82.9 - 93.1 fL MCH 30.2 27.5 - 32.1 pg MCHC 33.5 32.0 - 35.7 g/dL Platelets 324 145 - 357 x10(3)/mcL RDWSD 45.4 (H) 36.0 - 45.0 fL RDWCV 13.8 11.4 - 13.8 % MPV 10.6 7.6 - 12.9 fL nRBC % Auto 0.0 % nRBC Abs Auto 0.000 0.000 - 0.000 x10(3)/mcL Differential, Automated Result Value Ref Range Neutrophils % 74.7 % Neutr Abs (ANC) 8.44 (H) 1.70 - 6.10 x10(3)/mcL Lymphocytes % 13.6 % Lymphocytes Abs 1.5 0.9 - 3.2 x10(3)/mcL Monocytes % 7.9 % Monocyte Abs 0.9 0.3 - 0.9 x10(3)/mcL Eosinophils % 2.7 % Eosinophils Abs 0.3 0.0 - 0.4 x10(3)/mcL Basophils % 0.4 % Basophils Abs 0.0 0.0 - 0.1 x10(3)/mcL Immature Gran % 0.70 % Nasreen Gran Abs 0.08 (H) 0.00 - 0.04 x10(3)/mcL FSBG Trend No results for input(s): POCGLU in the last 72 hours. MICRO: No results for input(s): URINECULTURE in the last 720 hours. No results for input(s): GRAMSTAIN, BFCX, LOWERRESPCX, TISSUECX in the last 720 hours. No results for input(s): BLOODCX in the last 720 hours. ECG: Recent Labs 12/10/21 0405 DIAGLINE Sinus rhythm with 1st degree A-V block Left bundle branch block Abnormal ECG When compared with ECG of 08-DEC-2021 17:16, MO interval has increased T wave inversion now evident in Inferior leads T wave inversion more evident in Lateral leads I personally reviewed the tracing and edited the fellows interpretation Confirmed by fellow MD Daily Andrew ([id number]) on 12/10/2021 1:40:27 PM Confirmed by Marge Torres ([id number]) on 12/10/2021 1:53:13 PM QTCCALC 486 VASCULAR: No results for input(s): VBTEXTRPT in the last 720 hours. IMAGING: Results for orders placed or performed during the hospital encounter of 12/08/21 XR Ankle Min 3 views Right (Generic) (Exam End: 12/08/2021 4:25 PM) Narrative EXAMINATION: XR ANKLE MIN 3 VIEWS RIGHT (GENERIC) CLINICAL HISTORY: right ankle pain TECHNIQUE: 3 views RIGHT ankle COMPARISON: None FINDINGS: No acute fracture or malalignment. No osseous fragments or bony step-off. Calcaneal enthesophyte. Talar dome is intact. Congruent tibiotalar joint space with adequate tibiofibular overlap on all projections. No soft tissue edema or gas. No soft tissue calcification. Impression No acute fracture or malalignment of the RIGHT ankle. I have personally reviewed the image(s) and the resident's interpretation and agree with the findings, Aye Serra MD at 12/08/2021 5:05 PM Thank you for letting us participate in the care of this patient. If you are a health care provider and have any questions regarding this report, please contact the number below. For patients who have questions please contact the health child care assistant that requested your imaging first. Chest One View (Exam End: 12/10/2021 4:32 AM) Narrative EXAMINATION: XR CHEST ONE VIEW CLINICAL HISTORY: SOB, desat r/o aspiration TECHNIQUE: 1 view of the chest AP supine, one image COMPARISON: Chest radiograph 12/02/2021 FINDINGS: Patient's rotation confounds evaluation. Chronic elevation of right hemidiaphragm. No consolidation, pleural effusion or pneumothorax. Unchanged cardiomediastinal silhouette and osseous structures. Unremarkable upper abdomen. Impression No acute cardiopulmonary findings. Preliminary report signed by: Kailash More at 12/10/2021 4:43 AM I have personally reviewed the image(s) and the resident's interpretation and agree with the findings, Katharine Ferreira MD at 12/10/2021 4:59 AM Thank you for letting us participate in the care of this patient. If you are a health care provider and have any questions regarding this report, please contact the number below. For patients who have questions please contact the health child care assistant that requested your imaging first. Electronically signed by: Katharine Ferreira MD, [facility] ([phone]), at 12/10/2021 4:59 AM Film Library- Storage Only CT Head (Exam End: 11/23/2021 12:00 AM) Narrative This exam is auto-finalizing. It's purpose is for storage only. Film Library- Storage Only DX Chest (Exam End: 11/23/2021 12:05 AM) Narrative This exam is auto-finalizing. It's purpose is for storage only. Film Library- Storage Only DX Chest (Exam End: 11/29/2021 12:00 AM) Narrative This exam is auto-finalizing. It's purpose is for storage only. Film Library- Storage Only DX Chest (Exam End: 12/02/2021 12:00 AM) Narrative This exam is auto-finalizing. It's purpose is for storage only. Film Library- Storage Only CT Head (Exam End: 12/02/2021 12:05 AM) Narrative This exam is auto-finalizing. It's purpose is for storage only. OTHER Studies: N/A Assessment and Plan: ?? 71 yo male with PMH dementia, bipolar disorder, and recent PNA presented on 12/08 for right ankle pain and general evaluation. He has become more withdrawn over the last few months and lost 30+lbs. Upon questioning his , she says that he has only been eating small amounts of fruits here and there and often will prefer softer ones.He stays hydrated at home. His last manic episode was 2+ years ago, he has no Hx of seizures, and has not seen a dentist in 2+ years. He has been bitten by ticks before but did not have the ticks worked up by infectious disease or pathology. He recently told his that he feels depressed. His Ativan was recently decreased from 2 g to 1 g by his outpatient sina overton. He had a recent PNA and UTI for which he was treated with cefuroxime but was not asked to change any other medications while taking this Abx. His last dose of cefuroxime was 12/09. He also complains about right ankle pain which had a negative Xray of the ankle for fracture. He has an appointment scheduled with neurology at the end of the month to pursue these symptmos further. He has been described as catatonic. Psychiatry was consulted and wanted to try giving him midazolam to see improvement. He had a straight catheter inserted on 12/09 for 1+ L urinary retention, after which he visually and auditorily sounded relieved, however he still moaned and yelled for hours after. ?? #Worsening dementia and depression with anorexia and 30+ weight loss over 3 months -Attempting to attain MRI head with PO Ativan PRN but patient tends to spit out medications. Will need sedation for MRI. May continue trying for PO for now. -Hx includes significant anorexia, unchecked tick bites but with negative PCR results, depression, manic episodes 2+ years ago, dentist 2+ years ago, recent Ativan change from 2g to 1g -Psychiatry consulted and appreciated. Has been receiving midazolam, and today looked slightly improved. Unsure of what may have precipitated catatonia at this time. #Right ankle pain -Xray of the ankle negative for fracture -Question if has frequent falls since anorexia and weight loss -Tylenol 650 mg q6h PRN #Hypophosphatemia secondary to poor oral protein intake, resolved -Ph infusion improved to 3.3 #Recent PNA and UTI -Cefuroxime finished -Consider re evaluate with repeat chest X ray outpatient IV access: Tubes/Drains: catheter DVT PPX: lovenox Anticipated Disposition: home or facility when medically ready Goals of Care: Team Pager( Coverage 26/10): #[phone] PCP: Jose Eduardo Barboza MD [phone] Attestation: Jade Livingston 12/10/2021 Abdulkadir Jolley MD - 12/10/2021 12:05 PM EDT Images from the original note were not included. Hospital Medicine Attending Daily Progress Note Admit Date: 12/08/2021 ( Hospital Day 0 days ) Active Hospital Problems Diagnosis ??? Catatonia Resolved Hospital Problems No resolved problems to display. ASSESSMENT: Sebas Shepherd Jr. is a 71 y.o. male with past medical history of HTN, DLP, BPH, dementia, bipolar disorder who presented with altered mental status. Since yesterday, has had slight improvement in mental status, intermittently expressing thoughts in several words such as this morning is it okay if I sit up, though also with intermittent episodes of tachypnea, shouting, and reporting chest pain and difficulty breathing, without acute findings. Didhave oxygen requirement overnight but with negative CXR and weaned off by AM. Able to take minimal PO intake today. Plan to get MRI brain but anticipate difficulty with achieving appropriate calm for imaging - will discuss with Psych about PRNs. PLAN: # Probable catatonia # Altered mental status - psych input appreciated - scheduled midazolam 2 mg IV TID - r/o metabolic/ structural cause - obtain MRI brain, folate- pending, vit B 12 - normal, TSH - normal - consider neurology consult ?? # Hypophosphatemia 1.2 - s/p potassium phosphate IV yesterday with improvement this morning - will follow BMP, Phos ? # Bipolar disorder - resume bupropion 100 mg po bid - resume mirtazapine 45 mg po hs ?? # Recent UTI and pneumonia - improving per his ?? # BPH - resume tamsulosin 0.4 mg po daily Diet Regular diet Discharge planning TBD PT/OT/Speech Ordered Lines/Access PIV Funk catheter No DVT/GI Prophylaxis Lovenox Vital/lab/FS frequency Vitals Q6H, Labs Qdaily Code status Do NOT Attempt CPR - Inpatient Family Sisi Shepherd (spouse) [phone] PCP Jose Eduardo Barboza MD [phone] Attestation IPI Certification I certify that I am a [facility] credentialed attending provider with admitting privileges and that the patient meets or has met medical necessity to require an inpatient IPI level of care meeting a minimum of two midnights or is on the [facility] inpatient only procedure list (status C) due to: catatonia requiringIV benzodiazepine therapy Team (26/10 Coverage) [phone] PCP: MD Abdulkadir Camejo MD [facility] Medicine 12/10/2021 Subjective/24hr events: - Pt seen and examined at bedside - is it okay if I sit up - reports chest pain, difficulty breathing intermittently - sipping water in early afternoon ROS: unable to assess Vitals: Last value Range last 24 hrs Temperature Temp: 36.8 ??C (98.2 ??F) Temp: [36.8 ??C (98.2 ??F)-37.3 ??C (99.1 ??F)] Heart Rate Heart Rate: 70 Heart Rate: -- Blood Pressure BP: 122/74 BP: (111-142)/(56-85) Respiratory Rate Resp: 20 Resp: [14-20] SpO2 SpO2: 100 % SpO2: [63 %-100 %] Intake/Output Summary (Last 24 hours) at 12/10/2021 1206 Last data filed at 12/10/2021 0932 Gross per 24 hour Intake 1945 ml Output 5450 ml Net -3505 ml EXAM GEN: Lying in bed comfortably, NAD, on RA, breathing comfortably, occasionally speaking in short sentences HEENT: Anicteric, no conjunctival pallor, EOMI, PERRL CVS: RRR, S1+S2+no added sounds CHEST: CTABL, no added sounds ABD: Soft, ND/NT, BS+ron NEURO: AAO*3, no focal deficits. PSYCH: Normal mood and affect EXT: No edema. Mild cogwheel rigidity. Mild resting tremors. SKIN: No rash or open wounds LABS: Reviewed in eDH. Remarkable for the following: Recent Labs 12/10/21 0456 12/09/21 1054 12/08/21 1657 WBC 11.3* 9.9* 11.1* HGB 13.5* 15.1 15.6 HCT 40.3* 43.0 46.5 PLATELET 324 368* 417* Recent Labs 12/10/21 0456 12/09/21 1054 12/08/21 1657 NA 146* 142 140 K 3.8 3.3* 4.0 CL 114* 107 107 CO2 20* 20* 21* BUN 10 9* 7* CREATININE 1.27 1.17 1.11 GLUCOSE 95 94 102 CALCIUM 8.7 9.5 9.8 MAGNESIUM -- 0.72 0.79 PHOS 3.3 1.2* 1.2* Recent Labs 12/08/21 1657 AST 23 ALT 25 ALKPHOS 94 BILITOT 0.2 BILIDIR 0.1 MICRO: No results for input(s): URINECULTURE in the last 720 hours. No results for input(s): BLOODCX in the last 720 hours. COVID 19 PCR : Microbiology Results (Last 30 days) No results found for the last 720 hours. STUDIES: Results for orders placed or performed during the hospital encounter of 12/08/21 XR Ankle Min 3 views Right (Generic) (Exam End: 12/08/2021 4:25 PM) Impression No acute fracture or malalignment of the RIGHT ankle. I have personally reviewed the image(s) and the resident's interpretation and agree with the findings, Aye Serra MD at 12/08/2021 5:05 PM Thank you for letting us participate in the care of this patient. If you are a health care provider and have any questions regarding this report, please contact the number below. For patients who have questions please contact the health child care assistant that requested your imaging first. Chest One View (Exam End: 12/10/2021 4:32 AM) Impression No acute cardiopulmonary findings. Preliminary report signed by: Kailash More at 12/10/2021 4:43 AM I have personally reviewed the image(s) and the resident's interpretation and agree with the findings, Katharine Ferreira MD at 12/10/2021 4:59 AM Thank you for letting us participate in the care of this patient. If you are a health care provider and have any questions regarding this report, please contact the number below. For patients who have questions please contact the health child care assistant that requested your imaging first. Electronically signed by: Katharine Ferreira MD, [facility] ([phone]), at 12/10/2021 4:59 AM Medications: Scheduled Meds: ??? bolus IV fluid Intravenous Once ??? aspirin 81 mg Oral Daily ??? buPROPion SR 100 mg Oral BID ??? mirtazapine 45 mg Oral Nightly ??? tamsulosin 0.4 mg Oral Nightly ??? thiamine 100 mg Oral Daily ??? sodium chloride 0.9 % (flush) 5 mL Intravenous BID ??? enoxaparin 40 mg Subcutaneous Nightly ??? melatonin 3 mg Oral Nightly ??? midazolam (PF) 2 mg Intravenous TID ??? potassium, sodium phosphates 1.5 g Oral TID WC Continuous Infusions: ??? lactated Ringers 1,000 mL (12/10/21 0738) PRN Meds:.polyethylene glycoL, senna-docusate, sodium chloride 0.9 % (flush), lidocaine, acetaminophen Sobeida Crespo RN - 12/10/2021 7:28 AM EDT OUTCOME EVALUATION NOTE: OUTCOME SUMMARY: Sebas Shepherd is here for AMS. A&Ox0 and VSS. Not following commands, answering questions very rarely and refused PO meds and lovenox. Took 1 of 2 tablets of tylenol for pain with good effect. Spit out other tylenol tab. notified. Moaning and yelling continued throughout night. Around 0245 patient became agitated during incontinence care. Tried standing multiple times, constant repositioning, and pulling on IV line. Yelling I can't breath every few seconds with grunting in between. Satting 100%. Nurse tried to lead patient in breathing exercises, but patient not following commands. At 0313 patient went from sitting to collapsed on his side. Became completely unresponsive and though he had a pulse, he stopped breathing for 10-15 seconds. At this time he desatted to 63%. Able to finally appreciate response from patient, who at that time became increasingly agitated, screaming, trying to slide from bed to floor, and rolling around in bed, despite nurses attempts to calm patient. Sats back up to mid 90s-100s. Notified team of situation. Team at bedside to assess. Soft wrist restraints placed, as patient behavior related to his agitation had become unsafe. Restraint checks completed per policy. STAT CXR, EKG, and tele ordered. CXR benign. EKG revealed 1st degree AV blockwith LBBB. 4mg Versed ordered and given with good effect. 2L NC placed for desatting into 80s, though had to escalate to 3L due to continued desatting, able to wean to 2L later in shift. Team made aware of new oxygen requirement. Restraints removed at 629 due to safe behavior demonstrated by patient. Still agitated and confused, but not attempting bed exit or pulling at lines. Funk in place and draining well. LR continued at 100 mL/hr. Kphos infused per JUN. at bedside overnight and supportive of patient. Patient sleeping between nursing care. PLAN MOVING FORWARD: Monitor labs and vitals IVF Encourage meds Reorient as needed Reapply restraints as needed (by 829) Restraint order expires at 0351 on 12/11 INDIVIDUALIZED FALL PREVENTION INTERVENTIONS: Patient-specific fall risk factors per assessment: [current deficits]: Generalized weakness, disoriented, hospitalization Assistance [level of assistance required for transfers and ambulation]: Ax1 w/ FWW Supervision [direct monitoring required during toileting and ADLs]: Hands on, eyes on Surveillance [continuous indirect monitoring]: Masimo, purposeful rounding, bed alarm on, call lightin reach, room near unit station Patient-specific fall prevention interventions for sensory deficits provided, if applicable: [X] N/A CPG GOAL OUTCOME EVALUATION: Shirley Perrin RN - 12/09/2021 8:20 PM EDT Illness Severity [x] Stable [] Watcher [] Unstable Patient Summary Reason for admission: altered mental status or catatonia Relevant PMH: dementia, bipolar disorder, and recent PNA Significant 24 hour events: 9/6 AM: Arrived from ED @ 0900. VSS on RA. Pt unable to answer orientation questions. Pt intermittently responding with yes or no. Unable to follow commands. Pt moaning and yelling throughout day. Pt still unable to void on own, bladder scan showed >999 mL. notified - funk catheter ordered and placed with 1400 mL output initially. Funk with adequate CYU. Pt refusing all PO med's despite multiple attempts, pt spitting med's out. notified. LR infusing @ 100 mL/hr. IV K phos given per JUN. Brain MRI attempted this evening - notified that MRI was unsuccessful due to pt trying to climb out of machine. notified of this and need for possible sedation/anesthesia for MRI. at bedside t ough, supportive of patient. Action List MRI brain - needs sedation/anesthesia IVF Jade Livingston - 12/09/2021 4:21 PM EDT [facility] Medicine Medical Student Daily Progress Note Admit Date: 12/08/2021 Hospital Day 0 days Active Hospital Problems Diagnosis ??? Catatonia Resolved Hospital Problems No resolved problems to display. PMH Active Non-Hospital Problems Diagnosis ??? Altered mental status ??? Obtundation ??? Bipolar I disorder, most recent episode (or current) manic, moderate Inpatient Medications: Scheduled ??? aspirin 81 mg Oral Daily ??? buPROPion SR 100 mg Oral BID ??? cefUROXime 500 mg Oral BID ??? mirtazapine 45 mg Oral Nightly ??? tamsulosin 0.4 mg Oral Nightly ??? thiamine 100 mg Oral Daily ??? sodium chloride 0.9 % (flush) 5 mL Intravenous BID ??? enoxaparin 40 mg Subcutaneous Nightly ??? melatonin 3 mg Oral Nightly ??? midazolam (PF) 2 mg Intravenous TID ??? potassium phosphate 15 mmol Intravenous Q6H ??? potassium, sodium phosphates 1.5 g Oral TID WC Continuous infusions: ??? lactated Ringers 1,000 mL (12/09/21 1024) PRN: polyethylene glycoL, senna-docusate, sodium chloride 0.9 % (flush), lidocaine, acetaminophen Interval History: Mr. Shepherd is nonverbal today as he constantly moans and screams. He isn't trying to escape the hospital bed but also does not acknowledge healthcare workers. His is sometimes able to console him somewhat. He had a straight catheter inserted on 12/09 for 1+ L urinary retention, after which he visually and auditorily sounded relieved, however he still moaned and yelled for hours after. He also seems to feel pain when touching his jaw. ROS: Review of Systems Constitutional: Positive for anorexia. Negative for diaphoresis, fever and chills. Respiratory: Negative for cough and wheezing. Gastrointestinal: Negative for vomiting and nausea. HENT: Negative for sinus pressure. Psychiatric/Behavioral: Positive for depression. Musculoskeletal: Positive for joint pain. Endocrine: Negative for polyphagia and polyuria. Cardiovascular: Negative for palpitations and syncope. Skin: Negative for erythema. Physical Exam Vitals Range last 24 hrs Temperature Temp: [37 ??C (98.6 ??F)-37.3 ??C (99.1 ??F)] Heart Rate Heart Rate: [70] Blood Pressure BP: (110-173)/(67-105) Respiratory Rate Resp: [16-22] SpO2 SpO2: [92 %-98 %] Intake/Output Summary (Last 24 hours) at 12/09/2021 1622 Last data filed at 12/09/2021 1513 Gross per 24 hour Intake -- Output 1800 ml Net -1800 ml No data found. There is no height or weight on file to calculate BMI. Physical Exam Constitutional: General: He is in acute distress. Appearance: Normal appearance. HENT: Head: Normocephalic and atraumatic. Nose: Nose normal. Mouth/Throat: Mouth: Mucous membranes are moist. Eyes: General: No scleral icterus. Conjunctiva/sclera: Conjunctivae normal. Pupils: Pupils are equal, round, and reactive to light. Cardiovascular: Rate and Rhythm: Normal rate and regular rhythm. Heart sounds: No murmur heard. No friction rub. No gallop. Pulmonary: Effort: Pulmonary effort is normal. No respiratory distress. Breath sounds: Normal breath sounds. No stridor. No wheezing, rhonchi or rales. Abdominal: General: Abdomen is flat. Bowel sounds are normal. There is no distension. Palpations: Abdomen is soft. Tenderness: There is no abdominal tenderness. There is no guarding or rebound. Musculoskeletal: General: No swelling. Cervical back: Normal range of motion. No rigidity or tenderness. Right lower leg: No edema. Left lower leg: No edema. Skin: Capillary Refill: Capillary refill takes less than 2 seconds. Findings: No erythema. Neurological: General: No focal deficit present. Mental Status: He is alert. Studies reviewed in eDH. Remarkable for the following: LABS: Recent Results (from the past 24 hour(s)) Basic Metabolic Panel (non-fasting) Result Value Ref Range Glucose Lvl 102 65 - 199 mg/dL BUN 7 (L) 10 - 20 mg/dL Creatinine 1.11 0.80 - 1.50 mg/dL Sodium 140 135 - 145 mmol/L Potassium 4.0 3.5 - 5.0 mmol/L Chloride 107 98 - 107 mmol/L CO2 21 (L) 22 - 31 mmol/L Anion Gap 12 5 - 15 mmol/L Calcium 9.8 8.5 - 10.5 mg/dL Estimated GFR 71 >=60 mL/min/1.73 m?? Hemogram Result Value Ref Range WBC 11.1 (H) 4.0 - 9.5 x10(3)/mcL RBC 5.16 4.58 - 5.54 x10(6)/mcL Hemoglobin 15.6 13.7 - 16.5 g/dL Hematocrit 46.5 40.5 - 48.5 % MCV 90.1 82.9 - 93.1 fL MCH 30.2 27.5 - 32.1 pg MCHC 33.5 32.0 - 35.7 g/dL Platelets 417 (H) 145 - 357 x10(3)/mcL RDWSD 44.8 36.0 - 45.0 fL RDWCV 13.5 11.4 - 13.8 % MPV 10.5 7.6 - 12.9 fL nRBC % Auto 0.0 % nRBC Abs Auto 0.000 0.000 - 0.000 x10(3)/mcL Differential, Automated Result Value Ref Range Neutrophils % 69.7 % Neutr Abs (ANC) 7.71 (H) 1.70 - 6.10 x10(3)/mcL Lymphocytes % 18.9 % Lymphocytes Abs 2.1 0.9 - 3.2 x10(3)/mcL Monocytes % 7.7 % Monocyte Abs 0.8 0.3 - 0.9 x10(3)/mcL Eosinophils % 2.6 % Eosinophils Abs 0.3 0.0 - 0.4 x10(3)/mcL Basophils % 0.2 % Basophils Abs 0.0 0.0 - 0.1 x10(3)/mcL Immature Gran % 0.90 % Nasreen Gran Abs 0.10 (H) 0.00 - 0.04 x10(3)/mcL Lipase Result Value Ref Range Lipase 47 0 - 60 unit/L Troponin Result Value Ref Range Troponin-T <0.01 0.00 - 0.00 ng/mL Magnesium Result Value Ref Range Magnesium 0.79 0.69 - 1.07 mmol/L Acetaminophen level Result Value Ref Range Acetamin Lvl <5 (L) 10 - 30 mg/L Salicylate Result Value Ref Range Salicylate Lvl 4 mg/L Hepatic Function Panel Result Value Ref Range Total Protein 6.8 6.1 - 8.0 g/dL Albumin 3.9 3.2 - 5.2 g/dL AST 23 0 - 39 unit/L ALT 25 0 - 55 unit/L Alk Phos 94 40 - 130 unit/L Total Bilirubin 0.2 0.2 - 1.3 mg/dL Bili, Direct 0.1 0.0 - 0.3 mg/dL Phosphorus Result Value Ref Range Phosphorus 1.2 (CRIT) 2.5 - 4.5 mg/dL Acute Tick Borne Infection Panel Result Value Ref Range Anaplasma phagocytophilum PCR Not Detected Not Detected Ehrlichia chaffeensis PCR Not Detected Not Detected Babesia microti PCR Not Detected Not Detected Borrelia miyamotoi PCR Not Detected Not Detected Ethanol Level Result Value Ref Range Ethanol Lvl <100 <=99 mg/L TSH [place] Result Value Ref Range TSH 1.51 0.27 - 4.20 mcIU/mL Vitamin B12 Result Value Ref Range Vitamin B-12 933 232 - 1,245 pg/mL Vitamin D, 25-Hydroxy Result Value Ref Range 25-OH Vit D Total 40 21 - 100 ng/mL 25-OH Vit D Interp Sufficient Lyme IgG & IgM Antibody Result Value Ref Range Lyme Screening Antibody Neg Neg Urinalysis with reflex Culture Specimen: Straight Catheter Urine Result Value Ref Range Glucose UA Negative Negative mg/dL Protein UA Negative Negative mg/dL Bilirubin UA Negative Negative mg/dL Urobilinogen UA Normal Normal mg/dL pH UA 6.5 5.0 - 8.0 Blood UA Negative Negative mg/dL Ketones UA Negative Negative mg/dL Nitrite UA Negative Negative Leukocytes UA Negative Negative mcL Appearance UA Clear Clear Spec [place] UA 1.006 1.005 - 1.030 Color UA Yellow Yellow Culture Reflexed No Rapid Drug Screen, Urine (ROSE MARY Request) Result Value Ref Range ROSE MARY Conf Requested No ROSE MARY Requested See Comment Rapid Drug Screen w/o Confirmation, Urine Result Value Ref Range U Barbiturates Screen None Detected None Detected U Benzodiazepines Screen Presumptive Pos (A) None Detected U Cocaine Screen None Detected None Detected U Methadone Metabolites Screen None Detected None Detected U Opiate Screen None Detected None Detected U Cannabinoid Screen None Detected None Detected U Oxycodone Screen None Detected None Detected U Buprenorphine Screen None Detected None Detected U Fentanyl Screen None Detected None Detected U Tricyclics Screen None Detected None Detected U Ethanol Screen None Detected None Detected U Amphetamines Screen None Detected None Detected U Adulterants Screen None Detected None Detected Basic Metabolic Panel (non-fasting) Result Value Ref Range Glucose Lvl 94 65 - 199 mg/dL BUN 9 (L) 10 - 20 mg/dL Creatinine 1.17 0.80 - 1.50 mg/dL Sodium 142 135 - 145 mmol/L Potassium 3.3 (L) 3.5 - 5.0 mmol/L Chloride 107 98 - 107 mmol/L CO2 20 (L) 22 - 31 mmol/L Anion Gap 15 5 - 15 mmol/L Calcium 9.5 8.5 - 10.5 mg/dL Estimated GFR 67 >=60 mL/min/1.73 m?? Phosphorus Result Value Ref Range Phosphorus 1.2 (CRIT) 2.5 - 4.5 mg/dL Magnesium Result Value Ref Range Magnesium 0.72 0.69 - 1.07 mmol/L Hemogram Result Value Ref Range WBC 9.9 (H) 4.0 - 9.5 x10(3)/mcL RBC 4.94 4.58 - 5.54 x10(6)/mcL Hemoglobin 15.1 13.7 - 16.5 g/dL Hematocrit 43.0 40.5 - 48.5 % MCV 87.0 82.9 - 93.1 fL MCH 30.6 27.5 - 32.1 pg MCHC 35.1 32.0 - 35.7 g/dL Platelets 368 (H) 145 - 357 x10(3)/mcL RDWSD 41.9 36.0 - 45.0 fL RDWCV 13.2 11.4 - 13.8 % MPV 10.5 7.6 - 12.9 fL nRBC % Auto 0.0 % nRBC Abs Auto 0.000 0.000 - 0.000 x10(3)/mcL Differential, Automated Result Value Ref Range Neutrophils % 73.4 % Neutr Abs (ANC) 7.29 (H) 1.70 - 6.10 x10(3)/mcL Lymphocytes % 17.2 % Lymphocytes Abs 1.7 0.9 - 3.2 x10(3)/mcL Monocytes % 6.8 % Monocyte Abs 0.7 0.3 - 0.9 x10(3)/mcL Eosinophils % 1.4 % Eosinophils Abs 0.1 0.0 - 0.4 x10(3)/mcL Basophils % 0.4 % Basophils Abs 0.0 0.0 - 0.1 x10(3)/mcL Immature Gran % 0.80 % Nasreen Gran Abs 0.08 (H) 0.00 - 0.04 x10(3)/mcL FSBG Trend No results for input(s): POCGLU in the last 72 hours. MICRO: No results for input(s): URINECULTURE in the last 720 hours. No results for input(s): GRAMSTAIN, BFCX, LOWERRESPCX, TISSUECX in the last 720 hours. No results for input(s): BLOODCX in the last 720 hours. ECG: Recent Labs 12/08/21 1716 DIAGLINE Normal sinus rhythm Left axis deviation Left bundle branch block Abnormal ECG When compared with ECG of 10-AUG-1994 01:04, Left bundle branch block is now Present Confirmed by MD MARCELINO, RUTH ([id number]) on 12/09/2021 8:55:34 AM QTCCALC 493 VASCULAR: No results for input(s): VBTEXTRPT in the last 720 hours. IMAGING: Results for orders placed or performed during the hospital encounter of 12/08/21 XR Ankle Min 3 views Right (Generic) (Exam End: 12/08/2021 4:25 PM) Narrative EXAMINATION: XR ANKLE MIN 3 VIEWS RIGHT (GENERIC) CLINICAL HISTORY: right ankle pain TECHNIQUE: 3 views RIGHT ankle COMPARISON: None FINDINGS: No acute fracture or malalignment. No osseous fragments or bony step-off. Calcaneal enthesophyte. Talar dome is intact. Congruent tibiotalar joint space with adequate tibiofibular overlap on all projections. No soft tissue edema or gas. No soft tissue calcification. Impression No acute fracture or malalignment of the RIGHT ankle. I have personally reviewed the image(s) and the resident's interpretation and agree with the findings, Aye Serra MD at 12/08/2021 5:05 PM Thank you for letting us participate in the care of this patient. If you are a health care provider and have any questions regarding this report, please contact the number below. For patients who have questions please contact the health child care assistant that requested your imaging first. Film Library- Storage Only CT Head (Exam End: 11/23/2021 12:00 AM) Narrative This exam is auto-finalizing. It's purpose is for storage only. Film Library- Storage Only DX Chest (Exam End: 11/23/2021 12:05 AM) Narrative This exam is auto-finalizing. It's purpose is for storage only. Film Library- Storage Only DX Chest (Exam End: 11/29/2021 12:00 AM) Narrative This exam is auto-finalizing. It's purpose is for storage only. Film Library- Storage Only DX Chest (Exam End: 12/02/2021 12:00 AM) Narrative This exam is auto-finalizing. It's purpose is for storage only. Film Library- Storage Only CT Head (Exam End: 12/02/2021 12:05 AM) Narrative This exam is auto-finalizing. It's purpose is for storage only. OTHER Studies: N/A Assessment and Plan: 71 yo male with PMH dementia, bipolar disorder, and recent PNA presented on 12/08 for right ankle pain and general evaluation. He has become more withdrawn over the last few months and lost 30+lbs. Upon questioning his , she says that he has only been eating small amounts of fruits here and there and often will prefer softer ones.He stays hydrated at home. His last manic episode was 2+ years ago, he has no Hx of seizures, and has not seen a dentist in 2+ years. He has been bitten by ticks before but did not have the ticks worked up by infectious disease or pathology. He recently told his that he feels depressed. His Ativan was recently decreased from 2 g to 1 g by his outpatient p tian. He had a recent PNA and UTI for which he was treated with cefuroxime but was not asked to change any other medications while taking this Abx. His last dose of cefuroxime was 12/09. He also complains about right ankle pain which had a negative Xray of the ankle for fracture. He has an appointment scheduled with neurology at the end of the month to pursue these symptmos further. He has been described as catatonic. Psychiatry was consulted and wanted to try giving him midazolam to see improvement. He had a straight catheter inserted on 12/09 for 1+ L urinary retention, after which he visually and auditorily sounded relieved, however he still moaned and yelled for hours after. #Worsening dementia and depression with anorexia and 30+ weight loss over 3 months -MRI head scheduled for this afternoon -Hx includes significant anorexia, unchecked tick bites, depression, manic episodes 2+ years ago, dentist 2+ years ago, recent Ativan change from 2g to 1g -Psychiatry consulted and appreciated. Trying midazolam today and looking for any cognitive improvement. #Right ankle pain -Xray of the ankle negative for fracture -Question if has frequent falls since anorexia and weight loss -Tylenol 650 mg q6h PRN #Hypophosphatemia secondary to poor oral protein intake -Ph infusion #Recent PNA and UTI -Continue last dose of cefuroxime -Consider re evaluate with repeat chest X ray outpatient IV access: Tubes/Drains: catheter DVT PPX: lovenox Anticipated Disposition: home or facility when medically ready Goals of Care: Team Pager(MD Coverage 26/10): #[phone] PCP: Jose Eduardo Barboza MD [phone] Attestation: Jade Livingston 12/09/2021 [place] Stratton MD - 12/09/2021 3:19 PM EDT Psychiatric Inpatient Consultation Follow Up Note Time Spent: 40 Minutes Information Sources: Patient. Electronic Medical Record. This patient was discussed with Dr. Bob. See his note for confirmatory and/or revisionary documentation. Reason for consultation: Concern for Catatonia Interim History: - Per discussion with bedside RN, improvements noted with midazolam use, but seem overall transient. Some improvement in verbalization, but makes loud grunting sounds consistently throughout the day. - No acute issues overnight - Afebrile, vital signs stable Review of Systems: Psychiatric: See above, unable to obtain full ROS due to lack of cooperation with psychiatric exam. Extent of history Determination: Adarsh descriptors, reviewed systems, and level of history with x. HPI Descriptors X 1-3 1-3 4 + Reviewed Systems X 0 1 2-9 Level of Hx X PF EPF D Physical Exam: Last value Range last 24 hrs Temperature Temp: 37.3 ??C (99.1 ??F) Temp: [37 ??C (98.6 ??F)-37.3 ??C (99.1 ??F)] Heart Rate Heart Rate: 70 Heart Rate: [70] Blood Pressure BP: 142/85 BP: (110-173)/(67-105) Respiratory Rate Resp: 22 Resp: [16-22] SpO2 SpO2: 96 % SpO2: [92 %-98 %] Mental Status Evaluation: Musculoskeletal System: Muscle Strength/Tone (note atrophy, abnormal movements): Tremor noted bilaterally, worst in fingers and at rest. Tremor severity seemed to undulate throughout the exam. Cogwheel rigidity noted bilaterally. Neurologic: Awake and perseverating with grunting sounds but did appropriately respond no at one point during exam. Strength appears symmetric but not reliably following commands to formally assess. Muscle bulk appears symmetric. RUE/BLE 3+/4 reflexes. No ankle clonus, Toes downgoing, No Steiner's all bilaterally. Gait and Station: Deferred Psychiatric: ?? Appearance: older than stated age and disheveled ?? Behavior: restless, poor eye contact and Perseverative vocalizations. Eyes closed and would only rarey open them. Overall uncooperative with interview. ?? Speech: Tremulous and making vocalizations with few words. ?? Language: Few words, mostly vocalizations. ?? Mood: Flat ?? Affect: flat ?? Thought Process: Unable to assess. ?? Associations: Uncooperative with assessment. ?? Thought Content: Uncooperative with assessment. ?? Perception: not observed responding to internal stimuli Uncooperative with assessment. ?? Orientation: Unable to assess. ?? Attention/Concentration: unable to attend interview ?? Cognition: Uncooperative with assessment. ?? Memory: Uncooperative with assessment. ?? Fund of Knowledge: Uncooperative with assessment. ?? Insight: poor and Uncooperative with assessment. ?? Judgment: Uncooperative with assessment. Rodríguez-Darshan Catatonia Rating Scale: Use presence or absence of items 1-14 for screening Use the 0-3 scale for items 1-23 to rate severity. ?? 1) Excitement: Extreme hyperactivity, constant motor unrest which is apparently non-purposeful. Not to be attributed to akathisia or goal directed agitation 0 = Absent 2) Immobility/stupor: Extreme hypoactivity, immobile, minimally responsive to stimuli 0 = Absent 3) Mutism: Verbally unresponsive or minimally responsive 2 = Speaks less than 20 words/ 5 min. 4) Staring:Fixed gaze, little or no visual scanning of environment, decreased blinking. 2= Gaze heldlonger than 20 seconds, occasionally shifts attention 5) Posturing/catalepsy: Spontaneous maintenance of posture(s), including mundane (e.g. setting or standing for long periods without reacting) ??0 = Absent 6) Grimacing: Maintenance of odd facial expressions. ??1 = Less than 10 seconds 7) Echopraxia/echolalia: Mimicking of examiner's movements/speech. ??0 = No mimicking of examiner's movements/speech ?? 8) Stereotypy: Repetitive, non goal-directed motor activity (e.g. Finger-play; repeatedly touching, patting or rubbing self); abnormality not inherent in act but in frequency. 0 = Absent 9) Mannerisms: Odd, purposeful movements (hopping or walking tiptoe, saluting passers-by or exaggerated caricatures of mundane movements); abnormality inherent in act itself. 0 = Absent 10) Verbigeration: Repetition of phrases or sentences (like a scratched record). ??3 = Constant 11) Rigidity: Maintenance of a rigid position despite efforts to be moved, exclude if cog-wheeling or tremor present. 0 = Absent 12) Negativism: apparently motiveless resistance to instructions or attempts to move/examine patient. Contrary behavior, does exact opposite of instruction: 1 = Mild resistance and/or occasionally contrary 13) Waxy Flexibility: During reposturing of patient, patient offers initial resistance before allowing himself to be repositioned, similar to that of a bending candle 0 = Absent 14) Withdrawal: Refusal to eat, drink and/or make eye contact 3 = No PO intake/interaction for 1 dayor more 15) impulsivity: Patient suddenly engages in inappropriate behavior (e.g. Runs down hallway, starts screaming or takes off clothes) without provocation. Afterwards can give no, or only a facile explanation 0 = Absent 16) Automatic Obedience: Exaggerated cooperation with examiner's request or spontaneous continuationof movement requested. 0 = Absent 17) [place]: Anglepoise lamp arm raising in response to light pressure of finger, despite instruction to the contrary. 0 = Absent 18) [place]: Resistance to passive movement which is proportional to strength of the stimulus, appears automatic rather than willful. 0 = Absent 19) Ambitendnecy: Patient appears motorically stuck in indecisive, hesitant movement. 0 = Absent 20) Grasp Reflex: Per neurological exam. 0 = Absent 21) Perseveration: Repeatedly returns to same topic or persists with movement. 0 = Absent 22) Combativeness: Usually in an undirected manner, with no, or only a facile explanation afterwards. 0 = Absent 23) Autonomic abnormality [place]: Temperature, BP, Pulse, Respiratory rate, diaphoresis 1 = Abnormality of one parameter [excluding pre-existing hypertension] ?? Total 1-14: 12 Total: 13 Pertinent Diagnostic Testing: MRI Pending Extent of Exam Determination: Adarsh completed bullets & level of exam with ? X? Bullets Completed 1-5 6-8 X 9+ Level of Exam PF EPF X D Assessment: The patient is a 71-year-old male with a complicated past medical history that includes reported history of bipolar type I, presumed dementia, and a recent episode of suspected catatonia who presented to [facility] with altered mental status and decreased participation. His clinical picture still relatively perplexing, with features of catatonia versus delirium versus a potential coping or behavioral overlay. 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 On reviewing his physical exam as well as vital signs, he does not seem tohave any other characteristics consistent with neuroleptic malignant syndrome or serotonin syndrome.His EEG is reported did not show any seizure activity, but the direct reports unavailable currently.The patient is currently receiving IV midazolam with some effect, his nurses report that he does have some mild improvement with this, but nothing significant. Given this, we will continue to allow fortreatment of his potential catatonia with IV midazolam and assess his treatment response. Primary team is plan to obtain an MRI concurrently with this. We will continue to assess the patient's clinical recovery tomorrow, with further recommendations pending his overall clinical response. Care should be taken to continue to investigate for underlying medical triggers for his catatonia like presentation, including possible infections inflammation, or other derangements that could have precipitated this event. Primary Diagnosis: Suspected Catatonia Plan/Recommendations: - Continue IV Midazolam, consider transition to PO lorazepam when tolerating PO for longer durationof action - If agitation overnight, would AVOID antipsychotics, consider additional doses of benzodiazepines - Continue to investigate for underlying medical triggers for catatonia-like presentation - Psychiatry will continue to follow Patient on IEA Status? IEA: NO, patient is not on IEA, but decision making capacity may require reassessment by psychiatry if patient attempts to leave AMA. Recommendations were communicated to primary swat team member Dr. Atwood @ #[phone] . [place] Stratton MD 12/09/2021 Coding Determination Complexity of MDM Determination: Adarsh appropriate # of Dx, Amt, complexity of date, Risk, & corresponding level of MDM with x. 2 out of 3 elements in row must be met to qualify. # of Possible Diagnoses or Management Options Amount and/or Complexity of Data Risk of Complications, Morbidity, and or Mortality Type of Decision Making Minimal Minimal/None Minimal Straightforward Limited Limited Low Low Multiple Moderate Moderate Moderate X Extensive X Extensive X High X High Subsequent Hospital Day Service Code Determination: Adarsh Hx, Exam, MDM & SALVATORE/CPT Code with x. 2 out of # hernandez components in the row must be met to qualify. HISTORY EXAM MDM SALVATORE/CPT CODE X PF PF Straightforward/Low X 3005/72326 EPF EPF Moderate 3015/86321 D X D X High 3025/81765 Associated attestation - Mayco Bob MD - 12/19/2021 1:34 PM EDT Psychiatry Attending Note I discussed this patient's situation with the resident but did not see the patient. I contributed tothe formulation and treatment planning as documented in the resident's note. Mayco Bob MD Psychiatry Consultation Pager: [phone] documented in this encounter H&P Notes Colby Mercedes MD - 12/09/2021 5:04 AM EDT Inpatient Hospital Medicine - Admission Note Problem List: Active Hospital Problems Diagnosis ??? Catatonia Resolved Hospital Problems No resolved problems to display. Active Non-Hospital Problems Diagnosis ??? Altered mental status ??? Obtundation ??? Bipolar I disorder, most recent episode (or current) manic, moderate ID: 71 y.o. Male presents to [facility] with altered mental status or catatonia Hx obtained from the ED's note and his . History of Present Illness: HPI The patient is a 71 y.o. male with past medical history of HTN, DLP, BPH, dementia, bipolar disorderwho presented with altered mental status. The patient has significant psychiatric history with multiple hospitalizations. His hospital stay on the record on 06/2021 ( [facility]) was for acute metabolic encephalopathy (EEG negative for seizure), possible Seroquel overdose, pneumonia, hypernatremia (154). He seemed to be declining over the past year from dementia. They noted the patient has lost significant amount of weight over the past few months. His reports the patient was diagnosed with catatonia in October 2021, however his prior catatonic episodes were not this severe. He has never seen by neurology. He had ED visit at [facility] 2 times in November due to catatonia. The patient was admitted to [facility] due to pneumonia and UTI on 11/30 and was discharged to home on 12/04/2021, now finishing cefuroxime (1 day left). The patient lives withhis and daughter, they reported the patient has been complaining of right ankle pain and not wanting to get out of bed and therefore he will defecate/ urinate on himself. He has had poor oral intake and pretty much not conversing. They were unable to provide care the patient needs at home and in a process of finding long-term care for him. ED course - BP 128/72, HR 66, RR 18, sat 98% RA, temp 36.9 C. Labs showed hypophosphatemia 1.2 (repleted with potassium phos), mild leukocytosis 11.1, pending drug screening and urine analysis. XR Rt ankle did not show acute findings. Psych consulted for catatonia, recommended midazolam. They will reas sess the patient after medication given and recommended neurology consult and MRI for work-up of altered metal status. He received midazolam 4 mg IV x 3 doses with improvement on his catatonia, became more interactive and able to say his and his 's name, following basic commands. Review of Systems: Review of Systems Unable to obtain The family deny the patient complaining of any other medical complaints such as chest pain, nausea, vomiting, shortness of breath, cough, dysuria, headache, fever, seizure activity. Past Medical and Surgical History: History reviewed. No pertinent past medical history. No past surgical history on file. Prior To Admission Medications: (Not in a hospital admission) Allergies: Allergies Allergen Reactions ??? Hymenoptera Allergenic Extract Other reaction(s): anaphylaxis/angioedema ??? Venom-Wasp Family History: History reviewed. No pertinent family history. Social History and Habits: Lives with his and daughter. Prior to the last admission in late November, he used a walker for ambulation. Social History Socioeconomic History ??? Marital status: Spouse name: Not on file ??? Number of children: Not on file ??? Years of education: Not on file ??? Highest education level: Not on file Occupational History ??? Not on file Tobacco Use ??? Smoking status: Not on file ??? Smokeless tobacco: Not on file Substance and Sexual Activity ??? Alcohol use: Not on file ??? Drug use: Not on file ??? Sexual activity: Not on file Other Topics Concern ??? Not on file Social History Narrative ??? Not on file Social Determinants of Health Financial Resource Strain: Not on file Food Insecurity: Not on file Transportation Needs: Not on file Physical Activity: Not on file Housing Stability: Not on file Immunizations: There is no immunization history on file for this patient. Physical Exam: Last Set of Vitals and range of vitals over past 24 hours: Last value Range last 24 hrs Temperature Temp: 36.9 ??C (98.5 ??F) Temp: [36.9 ??C (98.5 ??F)] Heart Rate Heart Rate: 70 Heart Rate: [66-70] Blood Pressure BP: 110/74 BP: (110-173)/(72-105) Respiratory Rate Resp: 22 Resp: [16-22] SpO2 SpO2: 94 % SpO2: [93 %-98 %] There is no height or weight on file to calculate BMI. Physical Exam Constitutional: General: He is not in acute distress. Appearance: He is normal weight. He is not ill-appearing, toxic-appearing or diaphoretic. HENT: Head: Atraumatic. Mouth/Throat: Mouth: Mucous membranes are dry. Eyes: Extraocular Movements: Extraocular movements intact. Cardiovascular: Rate and Rhythm: Normal rate and regular rhythm. Pulses: Normal pulses. Heart sounds: No murmur heard. Pulmonary: Effort: Pulmonary effort is normal. No respiratory distress. Breath sounds: Normal breath sounds. No wheezing, rhonchi or rales. Abdominal: General: Abdomen is flat. Bowel sounds are normal. There is no distension. Palpations: Abdomen is soft. Tenderness: There is no abdominal tenderness. There is no guarding or rebound. Musculoskeletal: General: Normal range of motion. Cervical back: Normal range of motion. No rigidity. Right lower leg: No edema. Left lower leg: No edema. Skin: General: Skin is warm and dry. Capillary Refill: Capillary refill takes less than 2 seconds. Coloration: Skin is not jaundiced or pale. Neurological: General: No focal deficit present. Mental Status: He is alert. Cranial Nerves: No cranial nerve deficit. Motor: No weakness (upper ext gr 3/5, lower 2-3/5, symmetrically). Comments: He knows his and his 's names Able to lift his arms and move his legs to commands, tremulous Laboratory (Last 24 Hours): Recent Results (from the past 24 hour(s)) Basic Metabolic Panel (non-fasting) Result Value Ref Range Glucose Lvl 102 65 - 199 mg/dL BUN 7 (L) 10 - 20 mg/dL Creatinine 1.11 0.80 - 1.50 mg/dL Sodium 140 135 - 145 mmol/L Potassium 4.0 3.5 - 5.0 mmol/L Chloride 107 98 - 107 mmol/L CO2 21 (L) 22 - 31 mmol/L Anion Gap 12 5 - 15 mmol/L Calcium 9.8 8.5 - 10.5 mg/dL Estimated GFR 71 >=60 mL/min/1.73 m?? Hemogram Result Value Ref Range WBC 11.1 (H) 4.0 - 9.5 x10(3)/mcL RBC 5.16 4.58 - 5.54 x10(6)/mcL Hemoglobin 15.6 13.7 - 16.5 g/dL Hematocrit 46.5 40.5 - 48.5 % MCV 90.1 82.9 - 93.1 fL MCH 30.2 27.5 - 32.1 pg MCHC 33.5 32.0 - 35.7 g/dL Platelets 417 (H) 145 - 357 x10(3)/mcL RDWSD 44.8 36.0 - 45.0 fL RDWCV 13.5 11.4 - 13.8 % MPV 10.5 7.6 - 12.9 fL nRBC % Auto 0.0 % nRBC Abs Auto 0.000 0.000 - 0.000 x10(3)/mcL Differential, Automated Result Value Ref Range Neutrophils % 69.7 % Neutr Abs (ANC) 7.71 (H) 1.70 - 6.10 x10(3)/mcL Lymphocytes % 18.9 % Lymphocytes Abs 2.1 0.9 - 3.2 x10(3)/mcL Monocytes % 7.7 % Monocyte Abs 0.8 0.3 - 0.9 x10(3)/mcL Eosinophils % 2.6 % Eosinophils Abs 0.3 0.0 - 0.4 x10(3)/mcL Basophils % 0.2 % Basophils Abs 0.0 0.0 - 0.1 x10(3)/mcL Immature Gran % 0.90 % Nasreen Gran Abs 0.10 (H) 0.00 - 0.04 x10(3)/mcL Lipase Result Value Ref Range Lipase 47 0 - 60 unit/L Troponin Result Value Ref Range Troponin-T <0.01 0.00 - 0.00 ng/mL Magnesium Result Value Ref Range Magnesium 0.79 0.69 - 1.07 mmol/L Acetaminophen level Result Value Ref Range Acetamin Lvl <5 (L) 10 - 30 mg/L Salicylate Result Value Ref Range Salicylate Lvl 4 mg/L Hepatic Function Panel Result Value Ref Range Total Protein 6.8 6.1 - 8.0 g/dL Albumin 3.9 3.2 - 5.2 g/dL AST 23 0 - 39 unit/L ALT 25 0 - 55 unit/L Alk Phos 94 40 - 130 unit/L Total Bilirubin 0.2 0.2 - 1.3 mg/dL Bili, Direct 0.1 0.0 - 0.3 mg/dL Phosphorus Result Value Ref Range Phosphorus 1.2 (CRIT) 2.5 - 4.5 mg/dL Ethanol Level Result Value Ref Range Ethanol Lvl <100 <=99 mg/L TSH [place] Result Value Ref Range TSH 1.51 0.27 - 4.20 mcIU/mL Vitamin B12 Result Value Ref Range Vitamin B-12 933 232 - 1,245 pg/mL Vitamin D, 25-Hydroxy Result Value Ref Range 25-OH Vit D Total 40 21 - 100 ng/mL 25-OH Vit D Interp Sufficient Microbiology: Blood Cultures: - Urine Cultures: - Tick borne panel, lyme IgG and IgM - pending Radiology: CXR - ordered, pending result XR ankle IMPRESSION No acute fracture or malalignment of the RIGHT ankle MRI brain - ordered, pending result Other Studies: EKG - rate 79, QTc 493 Normal sinus rhythm Left axis deviation Left bundle branch block Abnormal ECG When compared with ECG of 10-AUG-1994 01:04, Left bundle branch block is now Present Assessment: The patient is a 71 y.o. male with past medical history of HTN, DLP, BPH, dementia, bipolar disorderwho presented with AMS/ catatonia. The patient has significant psychiatric history with multiple hospitalizations and ED visits. He was diagnosed with catatonia since October 2021. He recently hospitalized during 11/30-12/04 due to pneumonia and UTI. He has not been out of bed for couple of days since he was discharged home, has had poor oral intake and not much conversing. # Probable catatonia # Altered mental status - s/p midazolam 4 mg IV x3 with improvement, more interactive and able to follow commands and answerbasic questions. - psych input appreciated - will schedule midazolam 2 mg IV TID - r/o metabolic/ structural cause - obtain MRI brain, folate- pending, vit B 12 - normal, TSH - normal - consider neurology consult # Hypophosphatemia 1.2 - s/p potassium phosphate 1.5 gm tid, will continue - will follow BMP, Phos # Bipolar disorder - resume bupropion 100 mg po bid - resume mirtazapine 45 mg po hs # Recent UTI and pneumonia - improving per his - resume Cefuroxime 500 mg po bid x 1 more day # BPH - resume tamsulosin 0.4 mg po daily Plan: ?? Admit to Hospital medicine ?? Physical Therapy referral ?? DVT Prophylaxis ?? If currently a smoker - advised about smoking cessation and will provide smoking cessation material and support. ?? Pneumovax and Influenza Immunizations given as needed. ?? Discussed Advanced Directives and Code Status. The patient wishesto be DNR/DNI. Pre arrest - no intubation, but ok with escalation of care to ICU, cardioversion. A copy of this document will be sent to the patient's Primary Care Physician and/or Referring Physician. Colby Mercedes MD 12/09/2021 documented in this encounter ED Notes Radha Gates RN - 12/09/2021 7:30 AM EDT Patient unable to void during stay, bladder scan performed and showed greater than 999ml. Straight catheter done to relieve bladder 950Ml of output. Post cath residual only 50ml residual. Floor notified and medical team notified. Amos Cartagena RN - 12/09/2021 5:03 AM EDT Pt able to converse more after versed administration. Was able to answer some questions with few word sentences. States he has Pn in stomach and points to mid abd area. Unable to obtain further information regarding Pn. Pt repositioned in bed, pillow and blanket provided. Side rails raised. at bedside Adrian Baron APRN - 12/08/2021 7:17 PM EDT Patient Name: Sebas Shepherd Jr. Patient Age: 71 y.o. Patient : 1950 Encounter Date: 12/08/2021 I assumed patient care from JESSICA Cruz, please see their note for original details of presentation and workup to this point. Sebas Shepherd Jr. is a 71 y.o. male who presented for evaluation of right ankle pain but also increasing difficulty for caring for himself at home and for the ability of his family to care for him. He comes in with his Sisi who has been to for 50 years, his son and his daughter. Patient has had a couple recent visits at [facility]. It sounds like most recently he had been diagnosed with pneumonia and a urinary tract infection and treated with cefuroxime, he is supposed to stop that and finish tomorrow. It also sounds like he had a 1 month hospitalization at [facility] at [facility] in [place], [place] that went through mid November. Most recently he was weaned off his Seroquel over the past what sounds like 3 weeks by his psychiatrist. Patient has had several hospitalizations for mental health reasons over the past 26 years including at [facility], [facility], [facility], hospital in [place], these have ranged from a 1 to 8-month hospitalization. He has a past medical history of bipolar disorder and there is a question that he may have dementia and reports a diagnosis a year and a half ago although it is unclear that he has had a formal evaluation and diagnosis for this. Timeframe recently is a little difficult to ascertain but it sounds like the current episode really started back around mid summer and he was hospitalized for about a month or month and a half and discharged in mid November. He had some improvement intervally during the time since then but never returned to his usual baseline. They report that prior to him necessitating hospitalization for mental health care he often decompensates by withdrawing, exhibiting self-neglect, shutting down. This is very typical of what is been going on however family does feel there are some slight differences which include some weight loss and decreased appetite, some more confusion; getting confused about time of day, and some agitated behavior which is not generally typical of him. They do report however that the withdrawn nature and his self-neglect is difficult for his mental exacerbations. They are finding increasingly difficult to take care of at home as he will not participate in care, stays in bed all day, is moving his bowels and urinating in bed, did complain of some right ankle pain intermittently recently and so family was concerned about that, he is not eating very much and is taking his medication but they are finding it harder and harder to get him through his ADLs. has not noted any fever or chills. He urinates frequently but does not have any complaints. She does report 2 episodes over the past couple days of diarrhea but nothing consistently. Primary care provider is Dr. Barboza and psychiatrist is Dr. Chapito Brooks. For me he does participate limited in my evaluation exam. He denies any pain anywhere specifically headache, chest pain, abdominal pain, pain with urinating. He thinks he is doing okay. He declined getting the chest x-ray and the CT when I asked he just said because he does not want to do it, he felt that he was not ready but was not able to verbalize further about that. He thinks he is doing fine at home and thinks he came in for his ankle. Does not quite understand why his family is concerned. At some point during my interview he shut down and closes eyes and would not answer questions further.He seems to be moving all his extremities equal and symmetric. His lung sounds were clear to auscultation, slightly diminished in the bases, heart rate was regular. It looks like patient has had OSH ED visits recently from December 02, November 29, November 26 (had presented in a catatonic state, potassium 3.2, EKG with left bundle branch block, sounds like he may be was admitted for 2 or 3 nights), November 11 (was admitted observation for unresponsiveness with hope toadmit to the [facility] who declined and recommended discharge home, urine not suggestive of infection, labs notable for sodium of 146, chloride of 112, albumin 3.3, white count 11.5) , September 08. See below for additional information, in light of recent unremarkable CT head we will discontinue the one here. ED Course as of 12/08/212200Dec 08, 2021 1804 XR Ankle Min 3 views Right (Generic) No acute findings 1804 EKG 12 Lead Sinus rhythm with left bundle branch block, last EKG available for comparison was from 1994 180 WBC(!): 11.1 1805 Phosphorus(!!): 1.2 180 Sodium: 140 180 Potassium: 4.0 180 Magnesium: 0.79 182 TSH: 1.51 1843 Psych paged 1909 Vitamin B-12: [address] at this time, declined chest x-ray earlier. We will revisit those at some point. 1937 25-OH Vit D Total: 40 2001 Patient and family updated. Patient would answer some questions for me, oriented to self, date of , hospital but when asked the month he said I do not know and then would not answer questionsfurther. 2112 Patient and family updated, will hold off on night time meds for now. 2200 Patient family updated, lights turned off for patient comfort, awaiting psychiatry consult 11/11/21 CT head from OSH: FINDINGS: No acute intracranial hemorrhage, extra-axial fluid collection, mass or mass effect. Moderate proportionate enlargement of the ventricles, sulci and cisterns most suggestive of age-related cerebral andcerebellar volume loss. No loss of the flores-white matter interfaces. The calvarium is unremarkable. The mastoid air cells and visualized paranasal sinuses are clear. IMPRESSION No acute intracranial process. 09/13/2021 single view chest x-ray without any acute findings. June 2021: Documentation showing an admission from June of this year where he had altered mental status and had admitted to taking a handful of Seroquel, denied any SI or HI at that time but was felt to have acute metabolic encephalopathy with possible seizure with EEG and CT head negative. He would not follow commands, they were questioning whether this was an accidental overdose and did not feel he had pneumonia with note of rule out possible early pneumonia. He had elevated troponins with an EKG showing incomplete RBBB and left anterior fascicular block. Endorse alcohol use at that time and had hypernatremia with sodium going from 154 to 140. Assessment/Plan: 71 y.o. male some decline at home but seems somewhat cognitive and behavioral. Sounds like he has had recent work-up at outside hospitals including evaluation for seizures which they did not feel he had. He has not had any new medication changes. We will obtain hospital records from outside hospitals including [facility] and [facility]. We will get medical screening evaluation and labs. I would like to get aCT head as above and chest x-ray which were ordered. He has declined this at this time but will continue to evaluate. We will have psychiatry evaluate patient. 1. Change in behavior 2. Self-care deficit 3. Hypophosphatemia Psychiatry evaluation pending We will need to discuss disposition pending that consultation and whether patient may need to be seen by medicine I would anticipate a admission for decompensated behavioral/mental health condition Patient will be signed out to ED night attending Adrian Baron APRN 12/08/212122 Dianne Matamoros RN - 12/08/2021 7:01 PM EDT Attempted to take pt to CT Scan 4 IVÁN Valadez, but pt is refusing. COLLEEN Baron informed and aware. Dianne Matamoros RN - 12/08/2021 5:53 PM EDT Phosphorous of 1.2 mg/dL JESSICA Ferreira informed. Dianne Matamoros RN - 12/08/2021 4:54 PM EDT Received pt in ED room 7. Pt awake and known to have dementia. Pt noted to be just sitting on ED trolley and just looking at the floor. Attached to programming director. Respirations even and unlaboured. Skin is warm to touch. WATTERS x 4. Pt denies any complaints. Not in any acute distress. Seen and assessed by JESSICA Ferreira. Pending further provider orders. Safety precautions in place. Comfort measures provided. Jules Ferreira PA - 12/08/2021 4:23 PM EDT ED Provider Note HPI: Sebas Shepherd Jr. is a 71 y.o. male with history of dementia, bipolar who presents to the Emergency Department with his son, daughter and for evaluation. Per family the patient was recently discharged from [facility] where he had pneumonia and a UTI. They said when he first brought him home on 12/04/2021 the patient was at his baseline. Per family the patient has since become more withdrawn, depressed, confused and agitated. They state he has been complaining of right ankle pain and not wanting to get out of bed. They state that because of this he willdefecate/urinate on himself and tells him that nothing is wrong. Patient's family reports an extensive psych history requiring multiple hospitalizations for bipolar disorder. They state that he was recently in the past year and a half diagnosed with dementia that has been getting worse. Patient's family states that the patient has a decreased appetite and has lost significant amount of weight the past few months. Patient's family state that they are unable to take care of him at home and are in the process of trying to find long-term care for him. They deny the patient complaining of any other medical complaints such as chest pain, nausea, vomiting, shortness of breath, cough, dysuria, headache, or any other complaints at this time. Patient is followed by his PCP receives frequently. Patient has not been seen by neurology but patient's family state that he has an appointment scheduled for the end of the month. Patient's family states he has been taking his medication as prescribed and denies any new medication. He is on the last dose of antibiotic. Review of Systems Unable to perform ROS: Dementia Past Medical and Surgical Histories, Social History, Medications, Allergies were reviewed in the chart. Vitals: ED Triage Vitals [12/08/21 1450] BP: 128/72 Heart Rate: 66 Resp: 18 Temp: 36.9 ??C (98.5 ??F) Temp src: Tympanic SpO2: 98 % O2 Device: RA O2 Flow Rate (L/min): n/a Physical Exam Vitals and nursing note reviewed. Constitutional: General: He is not in acute distress. Appearance: He is underweight. He is not ill-appearing, toxic-appearing or diaphoretic. Comments: Chronically ill-appearing. Slouched. HENT: Head: Normocephalic and atraumatic. Nose: Nose normal. Mouth/Throat: Mouth: Mucous membranes are moist. Pharynx: Oropharynx is clear. No oropharyngeal exudate. Eyes: General: Right eye: No discharge. Left eye: No discharge. Conjunctiva/sclera: Conjunctivae normal. Pupils: Pupils are equal, round, and reactive to light. Cardiovascular: Rate and Rhythm: Normal rate and regular rhythm. Pulses: Normal pulses. Dorsalis pedis pulses are 2+ on the right side. Posterior tibial pulses are 2+ on the right side. Heart sounds: Normal heart sounds. No murmur heard. Pulmonary: Effort: Pulmonary effort is normal. No respiratory distress. Breath sounds: Normal breath sounds. No wheezing or rales. Musculoskeletal: Comments: Right ankle with no tenderness to palpation. 5 out of 5 strength to flexion and extension. Sensation intact. Able to ambulate. Full range of motion. Skin: General: Skin is warm and dry. Findings: No rash. Neurological: Mental Status: He is alert. Psychiatric: Mood and Affect: Mood is depressed. Affect is flat. Behavior: Behavior is cooperative. Thought Content: Thought content does not include suicidal ideation. Comments: Answers questions appropriately. ED Course: I have reviewed labs and imaging, images and available reports, and they are significant for: Recent Results (from the past 24 hour(s)) Basic Metabolic Panel (non-fasting) Result Value Ref Range Glucose Lvl 102 65 - 199 mg/dL BUN 7 (L) 10 - 20 mg/dL Creatinine 1.11 0.80 - 1.50 mg/dL Sodium 140 135 - 145 mmol/L Potassium 4.0 3.5 - 5.0 mmol/L Chloride 107 98 - 107 mmol/L CO2 21 (L) 22 - 31 mmol/L Anion Gap 12 5 - 15 mmol/L Calcium 9.8 8.5 - 10.5 mg/dL Estimated GFR 71 >=60 mL/min/1.73 m?? Hemogram Result Value Ref Range WBC 11.1 (H) 4.0 - 9.5 x10(3)/mcL RBC 5.16 4.58 - 5.54 x10(6)/mcL Hemoglobin 15.6 13.7 - 16.5 g/dL Hematocrit 46.5 40.5 - 48.5 % MCV 90.1 82.9 - 93.1 fL MCH 30.2 27.5 - 32.1 pg MCHC 33.5 32.0 - 35.7 g/dL Platelets 417 (H) 145 - 357 x10(3)/mcL RDWSD 44.8 36.0 - 45.0 fL RDWCV 13.5 11.4 - 13.8 % MPV 10.5 7.6 - 12.9 fL nRBC % Auto 0.0 % nRBC Abs Auto 0.000 0.000 - 0.000 x10(3)/mcL Differential, Automated Result Value Ref Range Neutrophils % 69.7 % Neutr Abs (ANC) 7.71 (H) 1.70 - 6.10 x10(3)/mcL Lymphocytes % 18.9 % Lymphocytes Abs 2.1 0.9 - 3.2 x10(3)/mcL Monocytes % 7.7 % Monocyte Abs 0.8 0.3 - 0.9 x10(3)/mcL Eosinophils % 2.6 % Eosinophils Abs 0.3 0.0 - 0.4 x10(3)/mcL Basophils % 0.2 % Basophils Abs 0.0 0.0 - 0.1 x10(3)/mcL Immature Gran % 0.90 % Nasreen Gran Abs 0.10 (H) 0.00 - 0.04 x10(3)/mcL Lipase Result Value Ref Range Lipase 47 0 - 60 unit/L Troponin Result Value Ref Range Troponin-T <0.01 0.00 - 0.00 ng/mL Magnesium Result Value Ref Range Magnesium 0.79 0.69 - 1.07 mmol/L Acetaminophen level Result Value Ref Range Acetamin Lvl <5 (L) 10 - 30 mg/L Salicylate Result Value Ref Range Salicylate Lvl 4 mg/L Hepatic Function Panel Result Value Ref Range Total Protein 6.8 6.1 - 8.0 g/dL Albumin 3.9 3.2 - 5.2 g/dL AST 23 0 - 39 unit/L ALT 25 0 - 55 unit/L Alk Phos 94 40 - 130 unit/L Total Bilirubin 0.2 0.2 - 1.3 mg/dL Bili, Direct 0.1 0.0 - 0.3 mg/dL Phosphorus Result Value Ref Range Phosphorus 1.2 (CRIT) 2.5 - 4.5 mg/dL Ethanol Level Result Value Ref Range Ethanol Lvl <100 <=99 mg/L TSH [place] Result Value Ref Range TSH 1.51 0.27 - 4.20 mcIU/mL XR Ankle Min 3 views Right (Generic) Final Result No acute fracture or malalignment of the RIGHT ankle. I have personally reviewed the image(s) and the resident's interpretation and agree with the findings, Aye Serra MD at 12/08/2021 5:05 PM Thank you for letting us participate in the care of this patient. If you are a health care provider and have any questions regarding this report, please contact the number below. For patients who have questions please contact the health child care assistant that requested your imaging first. Head wo Contrast (Generic) (Results Pending) XR Chest PA & Lateral (Generic) (Results Pending) Procedures Assessment and Plan: 71 y.o. male with history of dementia and bipolar brought into his family for evaluation due to worsening condition and inability to take care of him at home. They report increasing confusion, depression, agitation as well as weight loss. Per family patient will have accidents on himself and not noticed. They state he is unwilling to get out of bed and complains of right ankle pain. On exam patient has a flat affect he is depressed appearing and staring straight at the wall he is cooperative. Patient exam otherwise within normal limits. Will order labs, imaging including right ankle x-ray, chest x-ray, CT head and EKG. Patient was signed out to night CATRACHO at shift change pending labs/imaging results and psych consultation. Jules Ferreira PA 12/08/21 1856 Kei Ruano PA - 12/08/2021 2:46 PM EDT 71 y/o M with hx of dementia presents with right ankle pain that has been keeping him from getting out of bed. He has been going to the bathroom in the bed and rarely getting out of bed. No known injury. He lives at home with his and daughter but they are having a hard time caring for him at home. X-ray ankle ordered and basic labs ordered. Patient appears frail. Kei Ruaon PA 12/08/21 1450 documented in this encounter Miscellaneous Notes Consult Note - Tess Larkin MD - 12/19/2021 2:17 PM EDT Brief Psychiatry Note I spoke with the patient and his , Sisi Shepherd, about inpatient psychiatric admission. He is agreeable to the rules of voluntary admission and medication management. We will begin to coordinate his transfer to inpatient psychiatry. Tess Larkin MD 12/19/21 Care Management Discharge - Annabelle Loya RN - 12/19/2021 9:03 AM EDT CARE MANAGEMENT FINAL DISCHARGE NOTE Chart reviewed, care reviewed with primary team and at interdisciplinary rounds. Patient is medically ready and anticipated to discharge to inpatient psychiatric department 12/19/21. Needs for Transition of Care: Plan for discharge is: Other *plan for transer to inpatient psych Outpatient Agency/Support Group Needs: Homecare agency Agency Referrals & Follow-up Care: in patient psychiatric department Transportation: ambulance *ambulance vs wheelchair van other *transfer to inpatient psych Functional status prior to admission: Assistive Equipment (pt has FWW) Home Environment: Others in the home: child(jimena), adult, spouse (pt lives with his , in their daughters home). Current Living Arrangements: home/apartment/condo. Accessibility Concerns: . Current Functional Ability: Assistive Person and Equipment DME used at home: walker - rolling DME Needed at Discharge: None anticipated Patient is insured through: Primary Insurance: MANAGED MEDICARE GENERIC Payor: MANAGED MEDICARE GENERIC / Plan: MEDICARE MANAGED GENERIC / Product Type: *No Product type* / Secondary Insurance: N/A Prescription Coverage: Yes This plan was formulated with input from patient, , Jodi and team. All are in agreement with plan. Annabelle Loya RN [phone] Pager [phone] Care Management - Annabelle Loya RN - 12/15/2021 5:33 PM EDT OFFICE OF CARE MANAGEMENT PROGRESS NOTE LOS: Hospital Day 5 days Chart reviewed, care reviewed with primary team and at interdisciplinary rounds. Patient is medically ready and awaiting bed availability. Decision Maker: ALLIE Decision Maker Name: joselyn Zapata Decision Maker Contact Information: [phone] Functional status prior to admission: Assistive Equipment (pt has FWW) Home Environment: Others in the home: child(jimena), adult, spouse (pt lives with his , in their daughters home). Current Living Arrangements: home/apartment/condo. Accessibility Concerns: . Current Functional Ability: Assistive Person and Equipment DME used at home: walker - rolling DME Needed at Discharge: none anticipated at this time as plan is for patient to DC to rehab. Patient is insured through: Primary Insurance: MANAGED MEDICARE GENERIC Payor: MANAGED MEDICARE GENERIC / Plan: MEDICARE MANAGED GENERIC / Product Type: *No Product type* / Secondary Insurance: N/A Last Physical Therapy Recommendation: half-way facility, swing bed rehabilitation facility with to be determined Last Occupational Therapy Recommendation: half-way facility, swing bed rehabilitation facility with to be determined Plan for discharge is: Long Term Facility / Swing Outpatient Agency/Support Group Needs: Homecare agency [facility] - quick case pending ?? [facility] response Transportation: ambulance *ambulance vs wheelchair van family or friend will provide Barriers to discharge: Discharge planning Psych: Cognitive/perceptual, Decision-making Supports: Caregiver support Plan going forward: Care Management will continue to follow and assist with discharge planning and coordination of care as indicated. Anticipated Date of Discharge: 12/17/2021 Annabelle Loya RN [phone] Pager [phone] Care Management - Annabelle Loya RN - 12/12/2021 5:16 PM EDT OFFICE OF CARE MANAGEMENT PROGRESS NOTE LOS: Hospital Day 2 days Chart reviewed, care reviewed with primary team and at interdisciplinary rounds. Patient presents with right ankle pain that has been keeping him from getting out of bed, per Kei Ruano's note, 12/08/21 and continues to meet inpatient level of care related to: evaluate lab values and VS, psychiatric consult, Medication assessment and tolerance. Per , Jodi, she has started the LTC Medicaid process with Zeynep with [facility] on [place], [place]. Decision Maker: ALLIE Decision Maker Name: joselyn Zapata Decision Maker Contact Information: [phone] Functional status prior to admission: Assistive Equipment (pt has FWW) Home Environment: Others in the home: child(jimena), adult, spouse (pt lives with his , in their daughters home). Current Living Arrangements: home/apartment/condo. Accessibility Concerns: . Current Functional Ability: Assistive Person and Equipment DME used at home: walker - rolling DME Needed at Discharge: none anticipated at this time as plan is for patient to DC to rehab. Patient is insured through: Primary Insurance: MANAGED MEDICARE GENERIC Payor: MANAGED MEDICARE GENERIC / Plan: MEDICARE MANAGED GENERIC / Product Type: *No Product type* / Secondary Insurance: N/A Last Physical Therapy Recommendation: half-way facility, swing bed rehabilitation facility Last Occupational Therapy Recommendation: half-way facility, swing bed rehabilitation facility Plan for discharge is: Long Term Facility / Swing Outpatient Agency/Support Group Needs: Homecare agency Agency Referrals: Based on discussions with the multi-disciplinary healthcare team, the patient would benefit from SNFlevel of care at discharge. I have met with the contact center representative, Jodi to: ?? discuss discharge planning needs. ?? provide the [facility], Office of Care Management letter from the [facility] pertaining to rehab referrals. ?? provide a letter describing our affiliations within the [facility] and educate about their right to choose where referrals are sent. ?? provide the [facility] Star Quality Rating handout. ?? review the different levels of rehab including SNF, swing, and acute. ?? provide a list of facilities within their preferred geographic area. ?? request that they provide at least three choices for referral. They have requested referrals to: [facility] [address] [place] [address] [facility] previous [facility] [place] [address] [place] [id number] P: [phone] F: [phone] [address] Does patient have COVID vaccine card: Will be able to obtain. Note routed to a Investment Advisor who will communicate referrals to facilities and provide any required information. Transportation: ambulance *ambulance vs wheelchair van family or friend will provide Barriers to discharge: Discharge planning Psych: Cognitive/perceptual, Decision-making Supports: Caregiver support Plan going forward: Care Management will continue to follow and assist with discharge planning and coordination of care as indicated. Anticipated Date of Discharge: Annabelle Loya RN [phone] Pager [phone] Care Management - Annabelle Loya RN - 12/12/2021 4:32 PM EDT Message left via voicemail with , Sisi regarding discharge planning. Currently awaiting a return call. Annabelle Loya RN [phone] Pager [phone] Consult Note - Kristian Lindsay MD - 12/12/2021 11:19 AM EDT Psychiatric Inpatient Consultation Follow Up Note Time Spent: 30 minutes Information Sources: Patient. Electronic Medical Record. This patient was discussed with Dr. Bob. See his note for confirmatory and/or revisionary documentation. Reason for consultation: Catatonia Interim History: -Per documentation, patient felt he couldn't breathe overnight, though was later observed resting comfortably -Patient now consistently taking PO medications -On interview, patient reports feeling unable to get enough oxygen -Denied anxiety, states he remembers having this over the last few days -Reported not remembering the first few days of this admission -Patient's noted he has been saying no to most things, though not refusing after stating this Review of Systems: Review of Systems HENT: Negative for congestion and sore throat. Respiratory: Positive for shortness of breath. Negative for cough, sputum production and wheezing. Musculoskeletal: Negative for joint pain and myalgias. Psychiatric/Behavioral: See above Extent of history Determination: Adarsh descriptors, reviewed systems, and level of history with x. HPI Descriptors 1-3 1-3 X 4 + Reviewed Systems 0 1 X 2-9 Level of Hx PF EPF X D Physical Exam: Last value Range last 24 hrs Temperature Temp: 36.6 ??C (97.9 ??F) Temp: [36.4 ??C (97.5 ??F)-36.8 ??C (98.2 ??F)] Heart Rate Heart Rate: (!) 49 Heart Rate: [49-62] Blood Pressure BP: 161/80 BP: (110-161)/(63-80) Respiratory Rate Resp: 20 Resp: [16-22] SpO2 SpO2: 100 % SpO2: [97 %-100 %] Mental Status Evaluation: Musculoskeletal System: Muscle Strength/Tone (note atrophy, abnormal movements): Symmetric muscle bulk. Inconsistent cogwheeling rigidity of all four extremities (different frequency and tone of rigidity on subsequent exams) Gait and Station: Not assessed Psychiatric: ?? Appearance: Age appropriate male; casually dressed in gown; unkempt hair ?? Behavior: calm and cooperative; occasional eye contact; resting comfortably ?? Speech: non-pressured; spontaneous; conversational volume and prosody ?? Language: fluent; non-profane ?? Mood: Okay I guess ?? Affect: blunted; mood congruent ?? Thought Process: linear ?? Associations: intact ?? Thought Content: Denies suicidal or homicidal ideation ?? Perception: Denies auditory or visual hallucinations. Not seen responding to internal stimuli ?? Orientation: Oriented to person, place, and situation. Not oriented to date, though aware of the month and year ?? Attention/Concentration: attentive to conversation ?? Cognition: not formally assessed ?? Memory: patient noted memory impairment over last few days ?? Fund of Knowledge: not formally assessed ?? Insight: limited ?? Judgment: limited Rodríguez-Darshan Catatonia Rating Scale: Use presence or absence of items 1-14 for screening Use the 0-3 scale for items 1-23 to rate severity. 1) Excitement: Extreme hyperactivity, constant motor unrest which is apparently non-purposeful. Not to be attributed to akathisia or goal directed agitation 0 = Absent 2) Immobility/stupor: Extreme hypoactivity, immobile, minimally responsive to stimuli 0 = Absent 3) Mutism: Verbally unresponsive or minimally responsive 0 = Absent 4) Staring:Fixed gaze, little or no visual scanning of environment, decreased blinking. 0 = Absent 5) Posturing/catalepsy: Spontaneous maintenance of posture(s), including mundane (e.g. setting or standing for long periods without reacting) 0 = Absent 6) Grimacing: Maintenance of odd facial expressions. 0 = Absent 7) Echopraxia/echolalia: Mimicking of examiner's movements/speech. 0 = No mimicking of examiner's movements/speech 8) Stereotypy: Repetitive, non goal-directed motor activity (e.g. Finger-play; repeatedly touching, patting or rubbing self); abnormality not inherent in act but in frequency. 0 = Absent 9) Mannerisms: Odd, purposeful movements (hopping or walking tiptoe, saluting passers-by or exaggerated caricatures of mundane movements); abnormality inherent in act itself. 0 = Absent 10) Verbigeration: Repetition of phrases or sentences (like a scratched record). 0 = Absent 11) Rigidity: Maintenance of a rigid position despite efforts to be moved, exclude if cog-wheeling or tremor present. 0 = Absent, cogwheeling 12) Negativism: apparently motiveless resistance to instructions or attempts to move/examine patient. Contrary behavior, does exact opposite of instruction: 1 = Mild resistance and/or occasionally contrary 13) Waxy Flexibility: During reposturing of patient, patient offers initial resistance before allowing himself to be repositioned, similar to that of a bending candle 0 = Absent 14) Withdrawal: Refusal to eat, drink and/or make eye contact 0 = Absent 15) impulsivity: Patient suddenly engages in inappropriate behavior (e.g. Runs down hallway, starts screaming or takes off clothes) without provocation. Afterwards can give no, or only a facile explanation 0 = Absent 16) Automatic Obedience: Exaggerated cooperation with examiner's request or spontaneous continuationof movement requested. 0 = Absent 17) [place]: Anglepoise lamp arm raising in response to light pressure of finger, despite instruction to the contrary. 0 = Absent 18) [place]: Resistance to passive movement which is proportional to strength of the stimulus, appears automatic rather than willful. 0 = Absent 19) Ambitendnecy: Patient appears motorically stuck in indecisive, hesitant movement. 0 = Absent 20) Grasp Reflex: Per neurological exam. 0 = Absent 21) Perseveration: Repeatedly returns to same topic or persists with movement. 0 = Absent 22) Combativeness: Usually in an undirected manner, with no, or only a facile explanation afterwards. 0 = Absent 23) Autonomic abnormality [place]: Temperature, BP, Pulse, Respiratory rate, diaphoresis 2 = Abnormality of two parameters Total 1-14: 1 Total: 3 Pertinent Diagnostic Testing: Last 3 wbc, hgb, hct plt Recent Labs 12/12/21 0433 12/11/21 0438 12/10/21 0456 WBC 10.7* 11.2* 11.3* HGB 13.6* 12.9* 13.5* HCT 40.3* 37.9* 40.3* PLATELET 275 284 324 Last 3 Lytes Recent Labs 12/12/21 0433 12/11/21 0438 12/10/21 0456 NA 146* 142 146* K 3.8 3.5 3.8 CL 116* 109* 114* CO2 23 22 20* BUN 7* 8* 10 CREATININE 1.19 1.31 1.27 Last 3 LFTs Recent Labs 12/08/21 1657 AST 23 ALT 25 ALKPHOS 94 BILITOT 0.2 BILIDIR 0.1 Last 3 Ca, Mg, Phos Recent Labs 12/12/21 0433 12/11/21 0438 12/10/21 0456 12/09/21 1054 12/08/21 1657 CALCIUM 8.8 8.5 8.7 9.5 9.8 PHOS 3.8 4.7* 3.3 1.2* 1.2* MAGNESIUM -- -- -- 0.72 0.79 Last 3 ProBNP, Trop, CK Recent Labs 12/08/21 1657 TROPONINT <0.01 Last 3 TFT Recent Labs 12/08/21 1727 TSH 1.51 UA: Lab Results Component Value Date COLOR Yellow 12/09/2021 CLARITY Clear 12/09/2021 GLUCOSEU Negative 12/09/2021 PROTEINUADIP Negative 12/09/2021 BILIRUBINUA Negative 12/09/2021 UROBILIUADIP Normal 12/09/2021 PHUADIP 6.5 12/09/2021 SPGRAVITYUA 1.004 (L) 12/12/2021 BLOODUADIP Negative 12/09/2021 KETONESUA Negative 12/09/2021 NITRATEUA Negative 12/09/2021 LEUKOESTERUA Negative 12/09/2021 CULTUREREFLX No 12/09/2021 Urine Tox: Lab Results Component Value Date U Barbiturates Screen None Detected 12/09/2021 U Benzodiazepines Screen Presumptive Pos (A) 12/09/2021 U Cocaine Screen None Detected 12/09/2021 U Methadone Metabolites Screen None Detected 12/09/2021 U Opiate Screen None Detected 12/09/2021 U Cannabinoid Screen None Detected 12/09/2021 U Oxycodone Screen None Detected 12/09/2021 U Buprenorphine Screen None Detected 12/09/2021 U Fentanyl Screen None Detected 12/09/2021 U Tricyclics Screen None Detected 12/09/2021 U Ethanol Screen None Detected 12/09/2021 U Amphetamines Screen None Detected 12/09/2021 U Adulterants Screen None Detected 12/09/2021 EKG QTc: Recent Labs 12/08/21 1716 12/10/21 0405 QTCCALC 493 486 QRSDURATION 162 176 Extent of Exam Determination: Adarsh completed bullets & level of exam with ? X? Bullets Completed 1-5 6-8 X 9+ Level of Exam PF EPF X D Assessment: The patient is a 71-year-old gentleman with past medical history of bipolar disorder, presumed dementia, and suspected recent catatonia who presented [facility] with progressively altered mental status as well as concern for catatonia recurrence. He continues to show significant improvement compared to prior days. He tracks with the examiner, is interactive, and is able to converse and short sentences. Similarly, today no verbigeration is present. Most likely diagnosis at this point is catatonia. Some concern for parkinsonism contributing to clinical picture given cogwheeling rigidity, though this is inconsistent from exam to exam. Recommend continuing current benzodiazepine regimen with plan for prolonged course following discharge. Primary Diagnosis: Catatonia Plan/Recommendations: -Continue PO lorazepam 1 mg PO TID -Continue search for potential medical inciting factor for presentation, although as of now, no clear culprits identified Patient on IEA Status? IEA: NO, patient is not on IEA, but decision making capacity may require reassessment by psychiatry if patient attempts to leave AMA. Recommendations were communicated to primary swat team member. Kristian Lindsay MD 12/12/2021 Coding Determination Complexity of MDM Determination: Adarsh appropriate # of Dx, Amt, complexity of date, Risk, & corresponding level of MDM with x. 2 out of 3 elements in row must be met to qualify. # of Possible Diagnoses or Management Options Amount and/or Complexity of Data Risk of Complications, Morbidity, and or Mortality Type of Decision Making Minimal Minimal/None Minimal Straightforward Limited Limited Low Low Multiple Moderate Moderate Moderate X Extensive X Extensive X High X High Subsequent Hospital Day Service Code Determination: Adarsh Hx, Exam, MDM & SALVATORE/CPT Code with x. 2 out of # hernandez components in the row must be met to qualify. HISTORY EXAM MDM SALVATORE/CPT CODE PF PF Straightforward/Low 3005/77890 EPF EPF Moderate 3015/66102 X D X D X High X 3025/80295 Associated attestation - Mayco Bob MD - 12/19/2021 1:34 PM EDT Psychiatry Attending Note I discussed this patient's situation with the resident but did not see the patient. I contributed tothe formulation and treatment planning as documented in the resident's note. Mayco Bob MD Psychiatry Consultation Pager: [phone] Care Management - Annabelle Loya RN - 12/11/2021 3:19 PM EDT Message left via voicemail with , Sisi regarding discharge planning. Currently awaiting a return call. Annabelle Loya RN [phone] Pager [phone] Consult Note - Washington Stratton MD - 12/11/2021 11:34 AM EDT Psychiatric Inpatient Consultation Follow Up Note Time Spent: 35 minutes Information Sources: Patient. Electronic Medical Record. This patient was discussed with Dr. Bob. See his note for confirmatory and/or revisionary documentation. Reason for consultation: Concern for Catatonia Interim History: 12/10 - continued verbigeration, improved interaction with nursing and , but still with tremor and overall clinical constellation concerning for catatonia. 12/11 - Overnight documentation reports patient was able to eat dinner, was taking his PO medicationsand was drinking water. - This morning, patient notes he feels better. He is able to attend to examiner and speaks in short sentences. - Denies any pain currently - Notes does not remember how he got here (recent scheduled midazolam) - Afebrile, vital signs stable Review of Systems: Constitutional: Denies Fever/Chills HEENT: Cardiovascular: No chest pain Respiratory: No shortness of breath GI: /[address] (include LMP if applicable): Endocrine: Musculoskeletal: Integumentary: Neurological: Hematologic/Lymphatic: Allergic/Immunologic: Psychiatric: See above Extent of history Determination: Adarsh descriptors, reviewed systems, and level of history with x. HPI Descriptors 1-3 1-3 X 4 + Reviewed Systems 0 1 X 2-9 Level of Hx PF EPF X D Physical Exam: Last value Range last 24 hrs Temperature Temp: 36.8 ??C (98.2 ??F) Temp: [36.5 ??C (97.7 ??F)-37.3 ??C (99.1 ??F)] Heart Rate Heart Rate: 70 Heart Rate: -- Blood Pressure BP: 157/78 BP: (109-157)/(58-81) Respiratory Rate Resp: 20 Resp: [18-24] SpO2 SpO2: 99 % SpO2: [98 %-99 %] Mental Status Evaluation: Musculoskeletal System: Muscle Strength/Tone (note atrophy, abnormal movements): Normal tone. No tremor noted. Gait and Station: Deferred. Neuro: Awake and Alert. Attends to examiner and maintains eye contact. Oriented x name, initially confused as to location but using visual cues was able to deduce hospital. EOMI. FS. TM. WATTERS x 4, grossly symmetric. No cogwheeling. No rigidity/spasticity. Psychiatric: ?? Appearance: older than stated age and disheveled ?? Behavior: cooperative with the interview and good eye contact ?? Speech: normal volume, normal rate, normal rhythm and paucity ?? Language: fluent in kuwaiti and without word finding difficulty ?? Mood: Flat ?? Affect: flat ?? Thought Process: Overall logical. Seemed to be piecing together where he was, was deducing location on the fly. ?? Associations: Not assessed. ?? Thought Content: denied homicidal ideation and denied suicidal ideation ?? Perception: denied auditory hallucinations denied visual hallucinations not observed responding to internal stimuli ?? Orientation: person and place ?? Attention/Concentration: able to sustain focus ?? Cognition: Improving but not full. ?? Memory: Impaired, was receiving scheduled midazolam. ?? Fund of Knowledge: Not assessed. ?? Insight: limited ?? Judgment: limited Pertinent Diagnostic Testing: No new pertinent diagnostic testing. Overall diagnostic testing has been negative for major medical conditions that might lead to the patient's presentation. Interval imaging reviewed in eDH. Extent of Exam Determination: Adarsh completed bullets & level of exam with ? X? Bullets Completed 1-5 6-8 X 9+ Level of Exam PF EPF X D Assessment: The patient is a 71-year-old gentleman with past medical history of bipolar disorder, presumed dementia, and suspected recent catatonia who presented [facility] with progressively altered mental status as well as concern for catatonia recurrence. Today he has shown significant i mprovement compared to prior days. He tracks with the examiner, is interactive, and is able to converse and short sentences. Given his relatively dramatic improvement compared to several days ago, withthe only real intervention being administration of benzodiazepines as well as several diagnostic tests which were otherwise unrevealing, the presumed diagnosis at this point would be catatonia. In light of this would recommend transitioning to oral benzodiazepines for longer duration of action, continue to assess clinical response. Primary Diagnosis: Suspected Catatonia Plan/Recommendations: - Transition IV midazolam to PO lorazepam 1 mg PO TID - PT/OT evaluation - Continue to encourage PO intake - Continue search for potential medical inciting factor for presentation, although as of now, no clear culprits identified. Patient on IEA Status? IEA: NO, patient is not on IEA, but decision making capacity may require reassessment by psychiatry if patient attempts to leave AMA. Recommendations were communicated to primary swat team member Jade Livingston, Med Student who answered#[phone] Jolley. Washington Stratton MD 12/11/2021 Coding Determination Complexity of MDM Determination: Adarsh appropriate # of Dx, Amt, complexity of date, Risk, & corresponding level of MDM with x. 2 out of 3 elements in row must be met to qualify. # of Possible Diagnoses or Management Options Amount and/or Complexity of Data Risk of Complications, Morbidity, and or Mortality Type of Decision Making Minimal Minimal/None Minimal Straightforward Limited Limited Low Low Multiple Moderate Moderate Moderate X Extensive X Extensive X High X High Subsequent Hospital Day Service Code Determination: Adarsh Hx, Exam, MDM & SALVATORE/CPT Code with x. 2 out of # hernandez components in the row must be met to qualify. HISTORY EXAM MDM SALVATORE/CPT CODE PF PF Straightforward/Low 3005/04463 EPF EPF Moderate 3015/01778 X D X D X High X 3025/08270 Associated attestation - Mayco Bob MD - 12/19/2021 1:33 PM EDT Psychiatry Attending Note I discussed this patient's situation with the resident but did not see the patient. I contributed tothe formulation and treatment planning as documented in the resident's note. Mayco Bob MD Psychiatry Consultation Pager: [phone] Initial Assessments - Karma Maguire RN - 12/10/2021 10:32 AM EDT Office of Care Management Initial Assessment Karma Maguire RN reviewed record and discussed patient with Care Team. Source of Information: Team, bedside nurse, medical record, and Child (pt with delierum AMS and unable to answer questions for IA. Information for IA obtained by speaking to pts daughter, Monica) Introduced self/reviewed role; services accepted. Reason for Hospitalization: catatonia, AMS, failure to thrive Covid Vaccination Status: 1st, 2nd & booster Last COVID test: Past medical History: History reviewed. No pertinent past medical history. Hospitalizations Within the Past 30 Days: current reason for admission unrelated to previous admission Current Decision-Making Capacity: DPOA-HC Decision Maker Name: Sisi, Decision Maker Contact Information: phone number is correct in pts demographics If AD's have not been completed the following surrogate would be surrogate decision maker per [place] surrogate decision making law. (Only good for 180 days) Any patient receiving care in [place] must abide by [place] law. The hierarchy for surrogate decision making is: (a) Patient???s spouse, or civil union partner or common law spouse unless there is a divorce proceeding, separation agreement, or restraining order limiting that person???s relationship with the patient.Sisi. Any adult son or daughter of the patient. (c) Either parent of the patient. (d) Any adult brother or sister of the patient. (e) Any adult grandchild of the patient. (f) Any grandparent of the patient. (g) Any adult aunt, uncle, niece, or nephew of the patient. (h) A close friend of the patient. (i) The agent with financial power of aboriginal liaison officer or a conservator appointed in accordance with RSA 464-A. (j) The guardian of the patient???s estate. Advance Care Planning: Do NOT Attempt CPR - Inpatient Received -Advanced Directive: Yes, on file Who is your DPOA-HC?: Spouse Current Coping/Education/Information Needs: unable to assess at this time Current Functional Ability: Assistive Equipment, Assistive Equipment and Assistive Person (FWW and superivison x1-2 people for safety) Functional Status Prior to Admission: Assistive Equipment (pt has FWW) Prior ADLs & IADLs: Assistance Needed with ADLs & IADLs Cooking / Eating: Family / Friends Provide Meals Cleaning: Family / Friends do Cleaning Laundry: Has Assistance Driving: Family / Friends Provide Rides Medication Management: Dependent with Medication Management Bathing: Assists with Bathing Dressing: Assists with Dressing Home Environment: Others in the home: child(jimena), adult, spouse (pt lives with his , in their daughters home). Current Living Arrangements: home/apartment/condo. Accessibility Concerns: . Resource / Environmental Concerns: Resource/Environmental Concerns: financial Financial Concerns: other (see comments) (pts family may be seeking LTC at SNF for pt) Current DME: walker - rolling At home.FWw and 1-2 assist/supervision for safety currently while at [facility]. Home Address confirmed as: [address] [facility] [address] Social & Family Supports: All names listed below confirmed with patient as current and correct Extended Emergency Contact Information Primary Emergency Contact: SISI SHEPHERD Mobile Relation: Spouse Secondary Emergency Contact: MONICA VASQUEZ Mobile Relation: Child Current Care Provided by: spouse/significant other Provides Primary Care For: no one Caregiver if needed: child(jimena), adult, spouse Quality of Family relationships: involved, helpful, supportive Community Resources being provided currently: homecare agency (pt [facility] is [facility] with [facility]) [facility] Substance Use/Abuse confirmed: Social History Tobacco Use Smoking Status Not on file Smokeless Tobacco Not on file In the past year have you used an illegal drug or used a prescription medication for non-medical reasons?: No 0 No problems reported 1-2 Low level 3-5 Moderate level 6-8 Substantial level 9- 10 Severe level In the past year have you had 5 or more drinks a day containing alcohol?: No 0 to 7 points: Low risk 8 to 15 points: Medium risk 16 to 19 points: High risk 20 to 40 points: Addiction likely Other Pertinent/Service Specific Information: none noted Health/Prescription Coverage: Primary Insurance: MANAGED MEDICARE GENERIC Payor: MANAGED MEDICARE GENERIC / Plan: MEDICARE MANAGED GENERIC / Product Type: *No Product type* / Secondary Insurance: N/A Secondary Insurance? (Only Medicare A&B): No ; Why not?: pts has papers [facility] Medicaid Prescription Coverage: Yes Preferred Pharmacy: [facility] in [place], [place] Status: Patient is a : No Primary Care Provider: Jose Eduardo Barboza MD [phone] Patient/Caregiver Goals of Treatment: anticipate SNF at OR Potential Needs for Transition of Care: Agency Referrals: PT is currently under service with [facility].( Anticipated for OR that he will be recommended for SNF/Swing with possible LTC needs). I reviewed a list of Home Health Agencies/DME vendors with patient which serve the preferred geographic area. If patient chooses one of our affiliates, I will provide our affiliate letter. Education was provided about the right to choose where referrals are placed. Patient [facility] [address] PHONE: [phone] FAX: [phone] Expected date of discharge TBD Referral routed to the Investment Advisor for matching with agency/vendor and to provide any required information. Transportation: no concerns Transportation Anticipated: family or friend will provide Concerns to be Addressed: LTC Medicaid, discharge planning, care coordination/care conferences, adjustment to diagnosis/illness Assessment: Patient is admitted to medicine service for catatonia, AMS, failure to thrive. Per MDs Hand P.71 y.o. male with past medical history of HTN, DLP, BPH, dementia, bipolar disorder who presented with altered mental status. The patient has significant psychiatric history with multiple hospitalizations. His hospital stay on the record on 06/2021 ( [facility]) was for acute metabolic encephalopathy (EEG negative for seizure), possible Seroquel overdose, pneumonia, hypernatremia (154).He seemed to be declining over the past year from dementia. They noted the patient has lost significant amount of weight over the past few months. His reports the patient was diagnosed with catatonia in October 2021, however his prior catatonic episodes were not this severe. He has never seen by neurology. He had ED visit at [facility] 2 times in November due to catatonia. ?? The patient was admitted to [facility] due to pneumonia and UTI on 11/30 and was discharged to home on 12/04/2021, now finishing cefuroxime (1 day left). The patient lives withhis and daughter, they reported the patient has been complaining of right ankle pain and not wanting to get out of bed and therefore he will defecate/ urinate on himself. He has had poor oral intake and pretty much not conversing. They were unable to provide care the patient needs at home and in a process of finding long-term care for him. Pt lives in home with his and daughter, Monica. Pts , Sisi assists with pts care as necessary. Monica states that pt has been nearly bedbound for the past 2 weeks.He has some dementia at baseline, but prior to 2 weeks ago, he was walking indep, dressing with assist etc. is primary caregiver, Monica states that pts personal care needs are increasing that her mother is seeking possibleLTC for pt. They currently have [facility] in the home and referral sent to [facility] for assist with LTC Medicare needs. IBAN CM to continue to assist/follow with care coordination for DC planning/needs. ?? Plan: anticipate that pt will be recommended for SNF/SWING LTC at DC A member of the Care Management team will continue to monitor progress, follow for continuity of care and assist with transition of care planning. Karma Maguire, RNCM, BSN [facility] cell phone [phone] Consult Note - Laurence Herrera RPH - 12/09/2021 4:40 PM EDT TelePharmacy Home Medication List Update for Medication Reconciliation 12/09/21 4:40 PM Sebas Shepherd Jr. 1950 Allergies Allergen Reactions ??? Hymenoptera Allergenic Extract Other reaction(s): anaphylaxis/angioedema ??? Venom-Wasp ??? Person Interviewed: ??? Quality of Interview/accuracy of medication list: excellent ??? Sources used to compile medication list: [x] Epic medication list [x] SureScripts []Changes made to home medication list: o Additions: - none o Deletions: - Ceftin - completed course - Inderal Depakote ErR Lamicatal ??? Dresbach o Changes: - none ??? Additional Notes: none ??? Recommended changes: none The home medication list is now updated to the best of my knowledge and is ready to be reconciled bythe provider. Please contact the TelePharmacy Medication Reconciliation Pharmacist at for any questions. Laurence Herrera RPH Consult Note - Mayco Bob MD - 12/08/2021 6:57 PM EDT Psychiatry Attending Note I discussed the case with the resident, and saw and evaluated the patient (on 12/09) within 24 hours of the service described in the resident's note. I reviewed the patient???s history during the visit and I agree with the details as written. My examconfirms the resident's findings. The assessment and plan were formulated in discussion with me and I agree with them as documented. Major issues addressed/discussed: 71M with hx bipolar d/o, likely cognitive disorder, and records supporting recent episodes of fluctuating catatonia, adm for ankle pain, AMS, and likely return of catatonia. Agree with recs as below -- we will follow and re-eval. Cont bupropion and mirtazapine for now. Mayco Bob MD Psychiatry Consultation Pager: [phone] EMERGENCY DEPARTMENT PSYCHIATRIC EVALUATION The patient was seen at midnight Time Spent: 60 minutes Referral Source: ED Additional Attendee(s) (identify by relationship to pt.): Isabel Shepherd () Information source: Family. Relationship to patient: . Electronic Medical Record. Outpatient Providers: Primary care provider is Dr. Barboza and psychiatrist is Dr. Chapito Brooks ([facility], [facility]) Chief Complaint: 71 y.o. Male with hx of BPAD 1, likely dementia, and recent episode of catatonia per presents to [facility] Emergency Department for evaluation of his ankle pain in addition to concerns of two month presentation of altered MS and functioning History of Present Illness: (1,1,4) Per Isabel Shepherd (): She states that for the past couple of days, his ankle had pain and patient has had chronic ankle pain. Anytime she tried to get him out of bed, he would refuse saying his ankle hurt. Therefore, this is why they originally brought him to the emergency room. She states that two months ago, the patient had an acute change where he began wetting himself and wouldn't get out of bed. Hasn't been eating, has lost 30 lb in the past few months which is unusual for him. She states he just lays in bed all day, and when they try to get him up he'll refuse. The states that a few weeks ago, he was at [facility] for five days to be treated [...] and currently, the patient is continuously grunting. She states initially, it was thought that the patient was having seizures as at times during episodes, his eyes will bulge out and that he was evaluated for this at [facility] but that EEG did not show seizure activity. She states that the patient was informally diagnosed with dementia approximately one year ago however they have a formal neurology appointment 12/31 - [facility]. Althoughno formal diagnosis exists, notes several odd behaviors stating that he may, he would throw away things such as brand-new glasses into the montaño, binoculars into the garbage. She states the patient does have a psychiatrist Dr. Brooks who recently we develop of [facility] and last saw him one week ago. Per , Dr. Brooks said that the patient was on too many medications fromateful and that he should be weaned off. He was recently at [facility] from September to mid October and per , was discharged as they were told that his issues were behavior rather than medical. Additionally, should be noted that the patient was recently at [facility] where he was diagnosed with pneumonia and a urinary tract infection which is why he is currently on antibiotics. Rodríguez-Darshan Catatonia Rating Scale: Use presence or absence of items 1-14 for screening Use the 0-3 scale for items 1-23 to rate severity. 1) Excitement: Extreme hyperactivity, constant motor unrest which is apparently non-purposeful. Not to be attributed to akathisia or goal directed agitation 0 = Absent 2) Immobility/stupor: Extreme hypoactivity, immobile, minimally responsive to stimuli 2 = Virtually no interaction with external world 3) Mutism: Verbally unresponsive or minimally responsive 3 = No speech - groans only 4) Staring:Fixed gaze, little or no visual scanning of environment, decreased blinking. 3 = Fixed gaze, non-reactive 5) Posturing/catalepsy: Spontaneous maintenance of posture(s), including mundane (e.g. setting or standing for long periods without reacting) 0 = Absent 6) Grimacing: Maintenance of odd facial expressions. 0 = Absent 7) Echopraxia/echolalia: Mimicking of examiner's movements/speech. 0 = No mimicking of examiner's movements/speech 8) Stereotypy: Repetitive, non goal-directed motor activity (e.g. Finger-play; repeatedly touching, patting or rubbing self); abnormality not inherent in act but in frequency. 0 = Absent 9) Mannerisms: Odd, purposeful movements (hopping or walking tiptoe, saluting passers-by or exaggerated caricatures of mundane movements); abnormality inherent in act itself. 0 = Absent 10) Verbigeration: Repetition of phrases or sentences (like a scratched record). 0 = Absent 11) Rigidity: Maintenance of a rigid position despite efforts to be moved, exclude if cog-wheeling or tremor present. 2 = Moderate 12) Negativism: apparently motiveless resistance to instructions or attempts to move/examine patient. Contrary behavior, does exact opposite of instruction: 3 = Severe resistance and/or continually contrary 13) Waxy Flexibility: During reposturing of patient, patient offers initial resistance before allowing himself to be repositioned, similar to that of a bending candle 0 = Absent 14) Withdrawal: Refusal to eat, drink and/or make eye contact 3 = No PO intake/interaction for 1 dayor more 15) impulsivity: Patient suddenly engages in inappropriate behavior (e.g. Runs down hallway, starts screaming or takes off clothes) without provocation. Afterwards can give no, or only a facile explanation 0 = Absent 16) Automatic Obedience: Exaggerated cooperation with examiner's request or spontaneous continuationof movement requested. 0 = Absent 17) Mitgehen: Anglepoise lamp arm raising in response to light pressure of finger, despite instruction to the contrary. 0 = Absent 18) Gegenhalten: Resistance to passive movement which is proportional to strength of the stimulus, appears automatic rather than willful. 0 = Absent 19) Ambitendnecy: Patient appears motorically stuck in indecisive, hesitant movement. 0 = Absent 20) Grasp Reflex: Per neurological exam. 0 = Absent 21) Perseveration: Repeatedly returns to same topic or persists with movement. 0 = Absent 22) Combativeness: Usually in an undirected manner, with no, or only a facile explanation afterwards. 0 = Absent 23) Autonomic abnormality Ak Chin: Temperature, BP, Pulse, Respiratory rate, diaphoresis 1 = Abnormality of one parameter [excluding pre-existing hypertension] Total 1-14:6 Total: 14 severity score Psychiatric Review of Systems: Sustained Depressed Mood: Yes - per on answered questions Sustained Elevated Mood: Yes Sustained Irritable Mood: Yes Flashbacks: Unable to assess Nightmares: Unable to assess Panic Attacks: Unable to assess Chronic Worry: Unable to assess Psychotic Symptoms: No Obsessions/Compulsions: Unable to assess Violence: No Self Harm: Unable to assess Suicide Risk Factors on Day of ED Presentation: Enduring Factors: chronic mental health problems Dynamic Factors: depressive symptoms and recent diagnosis/worsening of a significant medical illness Protective Factors: family and community support and engaged in medical and/or mental health care Access to Firearms: No Other Psychiatric History: Prior diagnoses: -BPAD1 Past hospitalization and location: -hospitalized for hussain -several hospitalizations for mental health reasons over the past 26 years including at [facility], [facility], [facility] [place], these have ranged from a 1 to 8-month hospitalization. last psych hospitalization years ago. -Evy (Geriatric Mental Health Unit) at [facility] in [place], [place] that went through mid November. Suicide attempt details: -denies Past psychiatric medications: -not known Current medications: ASA QD Buproprion 100mg BID Cefuroxime 500mg BID (pneumonia and UTI last week) Folic Acid 1mg QD Ativan 1mg BID (which gives as scheduled) Magnesium 400mg Melatonin 3mg qhs Mirtazapine 45mg qhs Polyethylene glycol 17 g QD Sennosides-Docusate 2 caps BID Tamsulosin 0.4 mg QD Thiamine 100mg QD Substance Use History/Treatment: -denies Outpatient Medications: No current facility-administered medications on file prior to encounter. Current Outpatient Medications on File Prior to Encounter Medication Sig Dispense Refill ??? aspirin 81 mg Tablet, Chewable Take [...] daily. ??? melatonin 3 mg Tablet Take by mouth. ??? mirtazapine (REMERON) 45 mg Tablet Take 45 mg by mouth nightly. ??? polyethylene glycoL (Miralax) 17 gram Powder in Packet Take 17 g by mouth. ??? senna-docusate (Pericolace) 8.6-50 mg Tablet Take 1 tablet by mouth. ??? tamsulosin (Flomax) 0.4 mg Capsule Take 0.4 mg by mouth daily. ??? [DISCONTINUED] CIS Free Text Med - Inderal 60MG = 1 Tablet(s), PO, Once daily ??? [DISCONTINUED] divalproex (DEPAKOTE ER) 500 mg 24 hr tablet 1750MG = 3.5 Tablet(s), PO, QHS ??? [DISCONTINUED] lithium 300 mg tablet 300M TABS IN AM AND 3 TABS IN PM, PO, Twice daily ??? [DISCONTINUED] lamoTRIgine (LAMICTAL) 150 mg tablet 150MG = 1 Tablet(s), PO, QAM Has parkinsonian like tremors but SANDY scan WNL Allergies: Allergies Allergen Reactions ??? Hymenoptera Allergenic Extract Other reaction(s): anaphylaxis/angioedema ??? Venom-Wasp Problem List: Patient Active Problem List Diagnosis Code ??? Altered mental status R41.82 ??? Bipolar I disorder, most recent episode (or current) manic, moderate F31.12 ??? Obtundation R40.1 Past Medical/Surgical History: No past medical history on file. No past surgical history on file. Family Medical/Psychiatric History: -not known Social History: He lives at home with his and daughter in [facility] but they are having a hard time caring for him at home in his present state Vitals (24hr Range): Patient Vitals for the past 24 hrs: Temp Pulse Resp BP SpO2 O2 Device 12/08/21 1450 36.9 ??C (98.5 ??F) 66 18 128/72 98 % RA 12/08/21 1700 -- -- -- 148/80 95 % -- 12/08/21 1730 -- -- -- 136/90 96 % -- 12/08/21 1800 -- -- -- (!) 153/96 94 % -- Musculoskeletal System: ambulates with walker Mental Status Exam: ?? Appearance: older than stated age , disheveled and hunched over with fixed gaze, not responding to examiner aside from moving arm away during exam ?? Behavior: poor eye contact and unable to participate in interview, grunting repeatedly ?? Speech: loud grunts ?? Language: see above ?? Mood: unable to assess ?? Affect: flat ?? Thought Process: unable to assess ?? Associations: unable to assess ?? Thought Content: unable to assess ?? Perception: unable to assess ?? Orientation: unable to assess ?? Attention/Concentration: unable to assess ?? Cognition: unable to assess ?? Memory: unable to assess ?? Fund of Knowledge: unable to assess ?? Insight: poor ?? Judgment: poor Q1 Wish to be : Have you wished you were or wished you could go to sleep and not wake up?: no (12/08/211732) Q2 Suicidal Thoughts: Have you actually had any thoughts of killing yourself?: no (12/08/211732) Q6 Suicide Behavior (Lifetime): Have you ever done anything, started to do anything, or prepared to do anything to end your life?: no (12/08/211732) Labs: Psychiatry Labs (Last 24 hours): Preg: No results found for: HCGQUAL, HCGQUANT Heme: Lab Results Component Value Date WBC 11.1 (H) 12/08/2021 HGB 15.6 12/08/2021 HCT 46.5 12/08/2021 PLATELET 417 (H) 12/08/2021 MCV 90.1 12/08/2021 NEUTROABS 7.71 (H) 12/08/2021 No results found for: HA1C, SEDRATE Chem: Lab Results Component Value Date NA 140 12/08/2021 K 4.0 12/08/2021 CL 107 12/08/2021 CO2 21 (L) 12/08/2021 BUN 7 (L) 12/08/2021 GLUCOSE 102 12/08/2021 Lab Results Component Value Date CALCIUM 9.8 12/08/2021 MAGNESIUM 0.79 12/08/2021 PHOS 1.2 (CRIT) 12/08/2021 LFTs: Lab Results Component Value Date ALT 25 12/08/2021 AST 23 12/08/2021 ALKPHOS 94 12/08/2021 BILITOT 0.2 12/08/2021 Coags: No results found for: PTT, PT, INR Thyroid: Lab Results Component Value Date TSH 1.51 12/08/2021 Lipids and HgbA1C: No results found for: CHLPL, HDL, CHOLHDL, LDLCHOL, LDLDIRECT, TRIG No results found for: HA1C Vit Lvls: No results found for: [id number], SFOLATE UA: No results found for: GLUCOSEU, KETONESUA, PROTEINUADIP, BLOODUADIP, LEUKOESTERUA, NITRATEUA, WBCUA (May not represent most recent UA results. See eD-H labs for more details.) Tox: Lab Results Component Value Date ETHANOL <100 12/08/2021 ACTMNPHEN <5 (L) 12/08/2021 SALICYLATE 4 12/08/2021 No results found for: UDAUSCREEN Rx Lvls: No results found for: LITHIUM, CARBAMAZEPIN, VALPROATE, LAMOTRIGINE, CLOZAPINE Assessment: (including Suicide Risk Assessment) Sebas Shepherd is a 71 y.o. Male with hx of BPAD 1, likely dementia, and recent episode of catatonia per presents to [facility] Emergency Department for evaluation of his ankle pain in addition to concerns of two month presentation of altered MS and functioning. Per , the patient does have a recent episode of catatonia where he was treated with Ativan and showed some improvement in his eating and talking however still far from baseline. 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 However, exam is limited based on this in addition to patient's likely dementia, with no formal diagnosis however appears likely considering 's description of him throwing away things that are not supposed to be in addition to patient's limited cognition. That being said, her , had an acute decline in his mental functioning in a two-month span where he is now unable to get out of bed and wetting himself. While this could be possibly due to catatonia, it's also possible that patient has an underlying neurological etiology that is yet to be diagnosedthat could be contributing to this acute change. He does have a CT scan from recent hospitalization,however does not have an MRI. May be beneficial to obtain this and to consult neurology. For now, will do midazolam 4 milligrams IV and reassess in the morning to determine if patient has improved. If so, this may be more suggestive of catatonia however it's also possible patient has a mixed picture and that further workup should be obtained. Patient has a history of bipolar however is not on any mood stabilizer or antipsychotic. It may be worth touching base with the outpatient provider to determine reasoning of medication regimen Current Suicide Assessment: at baseline, patient is an increase suicide risk due to having chronic mental health issues. At this time, he is unable to answer further questions about suicide. Diagnosis: possible catatonia Plan: #Possible Catatonia ?? give midazolam 4 mg in the emergency room, with scheduled midazolam 2mg TID tomorrow. Psychiatry will reassess in the morning to determine if patient is still demonstrating symptoms of catatonia. #Acute mental status change (likely in conjunction with dementia though no formal dx) ?? recommend obtaining MRI and consulting neurology # BPAD ?? Buproprion 100mg BID ?? Mirtazapine 45mg qhs ?? F/U with outpatient provider to determine why patient not on mood stabilizer (generally 2nd gen antipsychotics alright with catatonia but 1st gen - ex: haldol - should be avoided) # At-home meds ASA QD Cefuroxime 500mg BID (pneumonia and UTI last week) Folic Acid 1mg QD Magnesium 400mg Melatonin 3mg qhs Polyethylene glycol 17 g QD Sennosides-Docusate 2 caps BID Tamsulosin 0.4 mg QD Thiamine 100mg QD # Suicide Risk Mitigation ?? Psych eval ?? Supervision via ED staff Signed By: Adrienne Christopher MD 12/08/2021 documented in this encounter Plan of Treatment Scheduled Orders Name Type Priority Associated Diagnoses Order S chedule EKG 12 Lead ECG STAT Change in behavior One Time for 1 Occurrences starting 12/10/2021 unti l 12/10/2021 documented as of this encounter Procedures Procedure Name Priority Date/Time Associated Comments Diagnosis HEMOGRAM Routine 12/19/2021 5:05 AM Results f or this EDT procedure are i n the results section. DIFFERENTIAL, Routine 12/19/2021 5:05 AM Results for this AUTOMATED EDT procedure are i n the results section. HC CBC,PLT & AUTO DIFF Routine 12/19/2021 5:05 AM EDT LDL CHOLESTEROL, Routine 12/19/2021 5:05 AM Resul ts for this DIRECT EDT procedure are i n the results section. HDL/CHOL PROFILE Routine 12/19/2021 5:05 AM Resul ts for this EDT procedure are i n the results section. HC VENIPUNCTURE Routine 12/19/2021 5:05 AM Result s for this EDT procedure are i n the results section. HEMOGRAM Routine 12/18/2021 5:23 AM Results f or this EDT procedure are i n the results section. DIFFERENTIAL, Routine 12/18/2021 5:23 AM Results for this AUTOMATED EDT procedure are i n the results section. HC CBC,PLT & AUTO DIFF Routine 12/18/2021 5:23 AM EDT HC PHOSPHORUS, SERUM Routine 12/18/2021 5:23 AM R esults for this EDT procedure are i n the results section. BASIC METABOLIC PANEL Routine 12/18/2021 5:23 AM Results for this (NON-FASTING) EDT procedure are in the results section. HC POTASSIUM Routine 12/17/2021 [...] AUTO DIFF Routine 12/17/2021 4:26 AM EDT HC VENIPUNCTURE Routine 12/17/2021 4:26 AM Result s for this EDT procedure are i n the results section. BASIC METABOLIC PANEL Routine 12/17/2021 4:26 AM Results for this (NON-FASTING) EDT procedure are in the results section. HEMOGRAM Routine 12/16/2021 4:30 AM Results f or this EDT procedure are i n the results section. DIFFERENTIAL, Routine 12/16/2021 4:30 AM Results for this AUTOMATED EDT procedure are i n the results section. HC CBC,PLT & AUTO DIFF Routine 12/16/2021 4:30 AM EDT HC VENIPUNCTURE Routine 12/16/2021 4:30 AM Result s for this EDT procedure are i n the results section. HC MAGNESIUM, SERUM Routine 12/16/2021 4:30 AM Re sults for this EDT procedure are i n the results section. BASIC METABOLIC PANEL Routine 12/16/2021 4:30 AM Results for this (NON-FASTING) EDT procedure are in the results section. HEMOGRAM Routine 12/15/2021 4:22 AM Results f or this EDT procedure are i n the results section. DIFFERENTIAL, Routine 12/15/2021 4:22 AM Results for this AUTOMATED EDT procedure are i n the results section. HC CBC,PLT & AUTO DIFF Routine 12/15/2021 4:22 AM EDT HC VENIPUNCTURE Routine 12/15/2021 4:22 AM Result s for this EDT procedure are i n the results section. BASIC METABOLIC PANEL Routine 12/15/2021 4:22 AM Results for this (NON-FASTING) EDT procedure are in the results section. HEMOGRAM Routine 12/14/2021 4:20 AM Results f or this EDT procedure are i n the results section. DIFFERENTIAL, Routine 12/14/2021 4:20 AM Results for this AUTOMATED EDT procedure are i n the results section. HC CBC,PLT & AUTO DIFF Routine 12/14/2021 4:20 AM EDT HC PHOSPHORUS, SERUM Routine 12/14/2021 4:20 AM R esults for this EDT procedure are i n the results section. BASIC METABOLIC PANEL Routine 12/14/2021 4:20 AM Results for this (NON-FASTING) EDT procedure are in the results section. HEMOGRAM Routine 12/13/2021 2:59 AM Results f or this EDT procedure are i n the results section. DIFFERENTIAL, Routine 12/13/2021 2:59 AM Results for this AUTOMATED EDT procedure are i n the results section. HC CBC,PLT & AUTO DIFF Routine 12/13/2021 2:59 AM EDT HC VENIPUNCTURE Routine 12/13/2021 2:59 AM Result s for this EDT procedure are i n the results section. BASIC METABOLIC PANEL Routine 12/13/2021 2:59 AM Results for this (NON-FASTING) EDT procedure are in the results section. HC OSMOLALITY URINE Routine [...] AUTO DIFF Routine 12/12/2021 4:33 AM EDT HC VENIPUNCTURE Routine 12/12/2021 4:33 AM Result s for this EDT procedure are i n the results section. BASIC METABOLIC PANEL Routine 12/12/2021 4:33 AM Results for this (NON-FASTING) EDT procedure are in the results section. HEMOGRAM Routine 12/11/2021 4:38 AM Results f or this EDT procedure are i n the results section. DIFFERENTIAL, Routine 12/11/2021 4:38 AM Results for this AUTOMATED EDT procedure are i n the results section. HC CBC,PLT & AUTO DIFF Routine 12/11/2021 4:38 AM EDT HC VENIPUNCTURE Routine 12/11/2021 4:38 AM Result s for this EDT procedure are i n the results section. BASIC METABOLIC PANEL Routine 12/11/2021 4:38 AM Results for this (NON-FASTING) EDT procedure are in the results section. HEMOGRAM Routine 12/10/2021 4:56 AM Results f or this EDT procedure are i n the results section. DIFFERENTIAL, Routine 12/10/2021 4:56 AM Results for this AUTOMATED EDT procedure are i n the results section. HC CBC,PLT & AUTO DIFF Routine 12/10/2021 4:56 AM EDT HC VENIPUNCTURE Routine 12/10/2021 4:56 AM Result s for this EDT procedure are i n the results section. BASIC METABOLIC PANEL Routine 12/10/2021 4:56 AM Results for this (NON-FASTING) EDT procedure are in the results section. XR CHEST ONE VIEW [...] DIFF Routine 12/09/2021 10:54 AM EDT HC PHOSPHORUS, SERUM Routine 12/09/2021 10:54 Res ults for this AM EDT procedure are i n the results section. HC MAGNESIUM, SERUM Routine 12/09/2021 10:54 Resu lts for this AM EDT procedure are i n the results section. HC VENIPUNCTURE Routine 12/09/2021 10:54 Results for this AM EDT procedure are i n the results section. RAPID DRUG SCREEN, STAT 12/09/2021 8:29 AM Res ults for this URINE (ROSE MARY REQUEST) EDT procedur e are in the results section. RAPID DRUG SCREEN W/O STAT 12/09/2021 8:29 AM Results for this CONFIRMATION, URINE EDT procedur e are in the results section. URINALYSIS WITH REFLEX STAT 12/09/2021 8:29 AM Results for this CULTURE EDT procedure are i n the results section. HC THYROID STIMULATING STAT 12/08/2021 5:27 PM Results for this HORMONE, SERUM EDT procedure are in the results section. LYME IGG & IGM STAT 12/08/2021 5:27 PM Results for this ANTIBODY EDT procedure are i n the results section. VITAMIN D, 25-HYDROXY STAT 12/08/2021 5:27 PM Results for this EDT procedure are i n the results section. VITAMIN B12 STAT 12/08/2021 5:27 PM Results f or this EDT procedure are i n the results section. HC ALCOHOL, BLOOD STAT 12/08/2021 5:27 PM Resu lts for this EDT procedure are i n the results section. EKG 12-LEAD STAT 12/08/2021 5:16 PM Results f or this EDT procedure are i n the results section. ACUTE TICK BORNE STAT 12/08/2021 4:57 PM Resul ts for this INFECTION PANEL EDT procedure ar e in the results section. HEMOGRAM STAT 12/08/2021 4:57 PM Results f or this EDT procedure are i n the results section. DIFFERENTIAL, STAT 12/08/2021 4:57 PM Results for this AUTOMATED EDT procedure are i n the results section. HC CBC,PLT & AUTO DIFF STAT 12/08/2021 4:57 PM EDT TROPONIN STAT 12/08/2021 4:57 PM Results f or this EDT procedure are i n the results section. PHOSPHORUS STAT 12/08/2021 4:57 [...] EDT procedure are in the results section. XR ANKLE MIN 3 VIEWS STAT 12/08/2021 [...] results section. documented in this encounter Results HDL/Cholesterol Profile (12/19/2021 5:05 AM EDT) athologist Signature Chol, Total 194 mg/dL [facility] Comment: Lower Risk: <200 mg/dL Average Risk: 200-239 mg/dL Higher Risk: >xy=445 mg/dL HDL 35 mg/dL [facility] Comment: Males: ?? Higher Risk: <40 mg/dL Females: ?? Higher Risk: <50 mg/dL Chol/HDL Ratio 5.5 ratio [facility] Chol/HDL Interpretation See Note [facility] Comment: Lipid management should be guided by a p atient? s ASCVD risk, goals and preferences. ACC/AHA Guidelines recommend high intens ity statin if clinical ASCVD or LDL greater than or equal to 190 mg/dL. [email or web address] Measure LDL if Total Cholesterol minus H DL Cholesterol is greater than 220 mg/dL. Adults aged 40-75 with LDL 70-189 mg/dL should have their 10 year ASCVD risk estimated with the ACC/AHA ASCVD risk es timator http://tools.acc.org/SQDHV-Fysc-Mumrxscb r/ Statin should be discussed if risk [...] Organization Address City/State/ZIP Code Phon e Number [address] LDL Cholesterol, Direct (12/19/2021 5:05 AM EDT) P athologist Signature LDL Chol 110 mg/dL [facility] LABORATORY Comment: Lowest Risk: <100 mg/dL Lower Risk: 100-129 mg/dL Borderline High Risk: 130-159 mg/dL High Risk: 160-189 mg/dL Very High Risk: >vp=678 mg/dL Specimen Anatomical Collection Method Collection Time Receive d Time (Source) Location / / Volume Laterality Blood Venous Draw / 12/19/2021 5:05 AM 12/20/19 5:41 Unknown EDT AM EDT Resulting Agency Comment Spec In Lab Devora Alcala MD CHEMISTRY ORDERABLES Performing Organization Address [facility]/ZIP Code Phon e Number [address] (ABNORMAL) Differential, Automated (12/19/2021 5:05 AM EDT) Patholo gist Method Time Signature Neutrophils % 70.7 % [facility] Neutr Abs (ANC) 7.17 (H) 1.70 - [facility] 6.10 [facility] x10(3)/[facility] LABORATORY Lymphocytes % 15.9 % [facility] Lymphocytes Abs 1.6 0.9 - 3.2 [facility] x10(3)/[facility] LABORATORY Monocytes % 8.9 % [facility] Monocyte Abs 0.9 0.3 - 0.9 [facility] x10(3)/[facility] LABORATORY Eosinophils % 3.3 % [facility] Eosinophils Abs 0.3 0.0 - 0.4 [facility] x10(3)/[facility] LABORATORY Basophils % 0.5 % [facility] Basophils Abs 0.0 0.0 - 0.1 [facility] x10(3)/[facility] LABORATORY Immature Gran % 0.70 % [facility] Comment: Immature granulocytes(IG's)percentage an d absolute count will include metamyelocytes, myelocytes, and promyelo cytes. Blood smears from CBCs yielding IG's will be scanned manually for conclisa danalan. If this scan disagrees with the automated IG or if promyelocytes are not ed, a manual differential will be performed. Nasreen Gran Abs 0.07 (H) 0.00 - 0.04 x10(3)/[facility] LABORATORY Specimen Anatomical Collection Method Collection Time Receive d Time (Source) Location / / Volume Laterality Blood 12/19/2021 5:05 AM 5:37 EDT AM EDT Resulting Agency Comment Spec In Lab Abdulkadir Jolley MD HEMATOLOGY ORDERABLES Performing Organization Address City/State/ZIP [place] [address] (ABNORMAL) Hemogram (12/19/2021 5:05 AM EDT) Analysis Performed At Patho logist Time Signature WBC 10.1 (H) 4.0 - 9.5 [facility] x10(3)/[facility] LABORATORY RBC 4.62 4.58 - [facility] 5.54 [facility] x10(6)/[facility] LABORATORY Hemoglobin 14.1 13.7 - [facility]/dL [facility] LABORATORY Hematocrit 41.5 40.5 - [facility] 48.5 % [facility] MCV 89.8 82.9 - [facility] 93.1 [facility] LABORATORY MCH 30.5 27.5 - [facility] 32.1 pg [facility]ORATORY MCHC 34.0 32.0 - [facility] 35.7 g/dL [facility]ORY Platelets 308 145 - 357 [facility] x10(3)/[facility] LABORATORY RDWSD 45.1 (H) 36.0 - [facility] 45.0 [facility] LABORATORY RDWCV 13.7 11.4 - [facility] 13.8 % [facility] LABORATORY MPV 10.6 7.6 - 12.9 [facility] LABORATORY nRBC % Auto 0.0 % [facility] nRBC Abs Auto 0.000 0.000 - [facility] 0.000 [facility] x10(3)/[facility] LABORATORY Specimen Anatomical Collection Method Collection Time Receive d Time (Source) Location / / Volume Laterality Blood 12/19/2021 5:05 AM 2 5:37 EDT AM EDT Resulting Agency Comment Spec In Lab Abdulkadir Jolley MD HEMATOLOGY ORDERABLES Performing Organization Address City/State/ZIP [place] [address] Basic Metabolic Panel (non-fasting) (12/19/2021 5:05 AM EDT) athologist Signature Glucose Lvl 106 65 - 199 [facility] mg/dL [facility] Comment: Diabetes: >=200 mg/dL plus symp toms BUN 12 10 - 20 mg/dL [facility] Creatinine 1.21 0.80 - 1.50 mg/dL [facility] Sodium 140 135 - 145 mmol/L [facility] Potassium 3.8 3.5 - 5.0 mmol/L [facility] Comment: Please note: ??Patients with WBC >100,00 0 may have falsely elevated Potassium levels. ??For accurate Potassium quantif ication in these patients send serum separator tube (gold top) for subsequent determinations. ??Contact the Clinical Chemistry Laboratory if there are any qu estions. Chloride 107 98 - 107 mmol/L [facility] CO2 22 22 - 31 mmol/L [facility] Anion Gap 11 5 - 15 mmol/L [facility] Calcium 9.1 8.5 - 10.5 mg/dL [facility] Estimated GFR 64 >=60 mL/min/1.73 m?? [facility] Comment: This patient's estimated GFR [...] Jolley MD CHEMISTRY ORDERABLES Performing Organization Address City/State/ZIP [place] [address] (ABNORMAL) Differential, Automated (12/18/2021 5:23 AM EDT) [facility] Method Time Signature Neutrophils % 58.5 % [facility] Neutr Abs (ANC) 5.85 1.70 - [facility] 6.10 [facility] x10(3)/[facility] LABORATORY Lymphocytes % 25.4 % [facility] Lymphocytes Abs 2.5 0.9 - 3.2 [facility] x10(3)/[facility] LABORATORY Monocytes % 9.6 % [facility] Monocyte Abs 1.0 (H) 0.3 - 0.9 [facility] x10(3)/[facility] LABORATORY Eosinophils % 5.0 % [facility] Eosinophils Abs 0.5 (H) 0.0 - 0.4 [facility] x10(3)/[facility] LABORATORY Basophils % 0.6 % [facility] Basophils Abs 0.1 0.0 - 0.1 [facility] x10(3)/[facility] LABORATORY Immature Gran % 0.90 % [facility] Comment: Immature granulocytes(IG's)percentage an d absolute count will include metamyelocytes, myelocytes, and promyelo cytes. Blood smears from CBCs yielding IG's will be scanned manually for concor dance. If this scan disagrees with the automated IG or if promyelocytes are not ed, a manual differential will be performed. Nasreen Gran Abs 0.09 (H) 0.00 - 0.04 x10(3)/[facility] LABORATORY Specimen Anatomical Collection Method Collection Time Receive d Time (Source) Location / / Volume Laterality Blood 12/18/2021 5:23 AM 2 5:43 EDT AM EDT Resulting Agency Comment Spec In Lab Abdulkadir Jolley MD HEMATOLOGY ORDERABLES Performing Organization Address City/[facility]/ZIP [place] [address] (ABNORMAL) Hemogram (12/18/2021 5:23 AM EDT) Analysis Performed At Patho logist Time Signature WBC 10.0 (H) 4.0 - 9.5 [facility] x10(3)/[facility] LABORATORY RBC 4.65 4.58 - [place] [facility] 5.54 [facility] x10(6)/[facility] LABORATORY Hemoglobin 14.1 13.7 - [facility] 16.[facility] g/dL [facility] LABORATORY Hematocrit 42.7 40.5 - [facility] JOEL 48.5 % [facility] LABORATORY MCV 91.8 82.9 - [facility] 93.1 [facility] LABORATORY MCH 30.3 27.5 - [place] 32.1 pg [facility] LABORATORY MCHC 33.0 32.0 - [facility] 35.7 g/dL [facility] LABORATORY Platelets 306 145 - 357 [facility] x10(3)/[facility] LABORATORY RDWSD 47.3 (H) 36.0 - [facility] 45.0 [facility] LABORATORY RDWCV 14.0 (H) 11.4 - [facility] JOEL 13.8 % [facility] LABORATORY MPV 10.5 7.6 - 12.9 [facility] nRBC % Auto 0.0 % [facility] LABORATORY nRBC Abs Auto 0.000 0.000 - [facility] JOEL 0.000 [facility] x10(3)/[facility] LABORATORY Specimen Anatomical Collection Method Collection Time Receive d Time (Source) Location / / Volume Laterality Blood 12/18/2021 5:23 AM 2 5:43 EDT AM EDT Resulting Agency Comment Spec In Lab Abdulkadir Jolley MD HEMATOLOGY ORDERABLES Performing Organization Address City/State/ZIP [place] [address] (ABNORMAL) Basic Metabolic Panel (non-fasting) (12/18/2021 5:23 AM EDT) P athologist Signature Glucose Lvl 96 65 - 199 [facility] mg/dL [facility] Comment: Diabetes: >=200 mg/dL plus symp toms BUN 10 10 - 20 mg/dL [facility] Creatinine 1.18 0.80 - 1.50 mg/dL [facility] Sodium 140 135 - 145 mmol/L [facility] Potassium 3.5 3.5 - 5.0 mmol/L [facility] Comment: Please note: ??Patients with WBC >100,00 0 may have falsely elevated Potassium levels. ??For accurate Potassium quantif ication in these patients send serum separator tube (gold top) for subsequent determinations. ??Contact the Clinical Chemistry Laboratory if there are any qu estions. Chloride 109 (H) 98 - 107 mmol/L [facility] CO2 21 (L) 22 - 31 mmol/L [facility] Anion Gap 10 5 - 15 mmol/L [facility] Calcium 8.6 8.5 - 10.5 mg/dL [facility] Estimated GFR 66 >=60 mL/min/1.73 m?? [facility] Comment: This patient's estimated GFR [...] Jolley MD CHEMISTRY ORDERABLES Performing Organization Address City/[facility]/ZIP Code Phon e Number [address] (ABNORMAL) Phosphorus (12/18/2021 5:23 AM EDT) athologist Signature Phosphorus 2.4 (L) 2.5 - 4.5 [facility] mg/dL [facility] LABORATORY Specimen Anatomical Collection Method Collection Time Receive d Time (Source) Location / / Volume Laterality Blood 12/18/2021 5:23 AM 2 5:43 EDT AM EDT Resulting Agency Comment Spec In Lab Abdulkadir Jolley MD CHEMISTRY ORDERABLES Performing Organization Address City/[facility]/ZIP Code Phon e Number [address] Potassium (12/17/2021 8:57 AM EDT) athologist Signature Potassium 4.1 3.5 - 5.0 [facility] mmol/L [facility] Comment: Please note: ??Patients with WBC [...] Almaraz MD CHEMISTRY ORDERABLES Performing Organization Address City/[facility]/ZIP Code Phon e Number [address] Differential, Automated (12/17/2021 4:26 AM EDT) athologist Signature Neutrophils % 57.4 % [facility] Neutr Abs (ANC) 5.04 1.70 - [facility] 6.10 [facility] x10(3)/[facility] LABORATORY Lymphocytes % 27.1 % [facility] Lymphocytes Abs 2.4 0.9 - 3.2 [facility] x10(3)/[facility] LABORATORY Monocytes % 9.4 % [facility] Monocyte Abs 0.8 0.3 - 0.9 [facility] x10(3)/[facility] LABORATORY Eosinophils % 4.9 % [facility] Eosinophils Abs 0.4 0.0 - 0.4 [facility] x10(3)/[facility] LABORATORY Basophils % 0.7 % [facility] Basophils Abs 0.1 0.0 - 0.1 [facility] x10(3)/[facility] LABORATORY Immature Gran % 0.50 % [facility] Comment: Immature granulocytes(IG's)percentage an d absolute count will include metamyelocytes, myelocytes, and promyelo cytes. Blood smears from CBCs yielding IG's will be scanned manually for concor dance. If this scan disagrees with the automated IG or if promyelocytes are not ed, a manual differential will be performed. Nasreen Gran Abs 0.04 0.00 - 0.04 x10(3)/[facility] LABORATORY Specimen Anatomical Collection Method Collection Time Receive d Time (Source) Location / / Volume Laterality Blood 12/17/2021 4:26 AM 4:45 EDT AM EDT Resulting Agency Comment Spec In Lab Abdulkadir Jolley MD HEMATOLOGY ORDERABLES Performing Organization Address City/State/ZIP [place] [address] (ABNORMAL) Hemogram (12/17/2021 4:26 AM EDT) Analysis Performed At Patho logist Time Signature WBC 8.8 4.0 - 9.5 [facility] x10(3)/[facility] LABORATORY RBC 4.66 4.58 - [facility] 5.54 [facility] x10(6)/[facility] LABORATORY Hemoglobin 14.5 13.7 - [facility] 16.5 g/dL [facility] LABORATORY Hematocrit 42.8 40.5 - [facility] 48.5 % [facility] LABORATORY MCV 91.8 82.9 - [facility].1 [facility] LABORATORY MCH 31.1 27.5 - [facility] 32.1 pg [facility] LABORATORY MCHC 33.9 32.0 - [facility] g/dL [facility] LABORATORY Platelets 315 145 - 357 [facility] x10(3)/[facility] LABORATORY RDWSD 47.8 (H) 36.0 - [facility] 45.0 [facility] LABORATORY RDWCV 14.2 (H) 11.4 - [facility] 13.8 % [facility] LABORATORY MPV 10.6 7.6 - 12.9 [facility] LABORATORY nRBC % Auto 0.0 % [facility] nRBC Abs Auto 0.000 0.000 - [facility] 0.000 [facility] x10(3)/[facility] LABORATORY Specimen Anatomical Collection Method Collection Time Receive d Time (Source) Location / / Volume Laterality Blood 12/17/2021 4:26 AM 4:45 EDT AM EDT Resulting Agency Comment Spec In Lab Abdulkadir Jolley MD HEMATOLOGY ORDERABLES Performing Organization Address City/State/ZIP [place] [address] (ABNORMAL) Basic Metabolic Panel (non-fasting) (12/17/2021 4:26 AM EDT) P athologist Signature Glucose Lvl 92 65 - 199 [facility] mg/dL [facility] Comment: Diabetes: >=200 mg/dL plus symp toms BUN 7 (L) 10 - 20 mg/dL [facility] Creatinine 1.02 0.80 - 1.50 mg/dL [facility] LABOR[facility]ORY Sodium 139 135 - 145 mmol/L [facility] Potassium Not Perf 3.5 - 5.0 [facility] Comment: Unable to quantitate due to sample hemol ysis. ??Sample redraw suggested. Called by: , Read back by: Yadira Latif, Date/Time:12/17/21 05:20. Please note: ??Patients with WBC >100,00 0 may have falsely elevated Potassium levels. ??For accurate Potassium quantif ication in these patients send serum separator tube (gold top) for subsequent determinations. ??Contact the Clinical Chemistry Laboratory if there are any qu estions. Chloride 107 98 - 107 mmol/L [facility] CO2 22 22 - 31 mmol/L [facility] Anion Gap 10 5 - 15 mmol/L [facility] Calcium 8.9 8.5 - 10.5 mg/dL [facility] Estimated GFR 79 >=60 mL/min/1.73 m?? [facility] Comment: This patient's estimated GFR [...] Location / / Volume Laterality Blood 12/17/2021 4:26 AM 2 4:45 EDT AM EDT Resulting Agency Comment Spec In Lab Abdulkadir Jolley MD CHEMISTRY ORDERABLES Performing Organization Address City/[facility]/ZIP [place] [address] Phosphorus (12/17/2021 4:26 AM EDT) P athologist Signature Phosphorus 2.6 2.5 - 4.5 [facility] mg/dL [facility] LABOR[facility]ORY Specimen Anatomical Collection Method Collection Time Receive d Time (Source) Location / / Volume Laterality Blood 12/17/2021 4:26 AM 2 4:45 EDT AM EDT Resulting Agency Comment Spec In Lab Abdulkadir Jolley MD CHEMISTRY ORDERABLES Performing Organization Address City/[facility]/ZIP [place] [address] (ABNORMAL) Differential, Automated (12/16/2021 4:30 AM EDT) P athologist Signature Neutrophils % 57.5 % [facility] Neutr Abs (ANC) 5.27 1.70 - [facility] 6.10 [facility] x10(3)/[facility] LABORATORY Lymphocytes % 28.9 % [facility] Lymphocytes Abs 2.6 0.9 - 3.2 [facility] x10(3)/[facility] LABORATORY Monocytes % 8.1 % [facility] Monocyte Abs 0.7 0.3 - 0.9 [facility] x10(3)/[facility] LABORATORY Eosinophils % 4.3 % [facility] Eosinophils Abs 0.4 0.0 - 0.4 [facility] x10(3)/[facility] LABORATORY Basophils % 0.5 % [facility] Basophils Abs 0.0 0.0 - 0.1 [facility] x10(3)/[facility] LABORATORY Immature Gran % 0.70 % [facility] Comment: Immature granulocytes(IG's)percentage an d absolute count will include metamyelocytes, myelocytes, and promyelo cytes. Blood smears from CBCs yielding IG's will be scanned manually for concor dance. If this scan disagrees with the automated IG or if promyelocytes are not ed, a manual differential will be performed. Nasreen Gran Abs 0.06 (H) 0.00 - 0.04 x10(3)/[facility] LABORATORY Specimen Anatomical Collection Method Collection Time Receive d Time (Source) Location / / Volume Laterality Blood 12/16/2021 4:30 AM 4:51 EDT AM EDT Resulting Agency Comment Spec In Lab Abdulkadir Jolley MD HEMATOLOGY ORDERABLES Performing Organization Address City/State/ZIP [place] [address] (ABNORMAL) Hemogram (12/16/2021 4:30 AM EDT) Analysis Performed At Patho logist Time Signature WBC 9.2 4.0 - 9.5 [facility] x10(3)/[facility] LABORATORY RBC 4.77 4.58 - [place] 5.54 [facility] x10(6)/[facility] LABORATORY Hemoglobin 14.5 13.7 - [facility] g/dL [facility]ORY Hematocrit 43.7 40.5 - [facility] 48.5 % [facility] LABORATORY MCV 91.6 82.9 - [facility] 93.1 [facility] LABORATORY MCH 30.4 27.5 - [place] 32.1 pg [facility] LABORATORY MCHC 33.2 32.0 - [facility] 35.7 g/dL [facility]ORY Platelets 286 145 - 357 [facility] x10(3)/[facility] LABORATORY RDWSD 47.3 (H) 36.0 - [facility]0 [facility] LABORATORY RDWCV 14.1 (H) 11.4 - [facility] 13.8 % [facility] LABORATORY MPV 10.7 7.6 - 12.9 [facility] LABORATORY nRBC % Auto 0.0 % [facility] nRBC Abs Auto 0.000 0.000 - [facility] 0.000 [facility] x10(3)/[facility] LABORATORY Specimen Anatomical Collection Method Collection Time Receive d Time (Source) Location / / Volume Laterality Blood 12/16/2021 4:30 AM 4:51 EDT AM EDT Resulting Agency Comment Spec In Lab Abdulkadir Jolley MD HEMATOLOGY ORDERABLES Performing Organization Address City/State/ZIP [place] [address] (ABNORMAL) Basic Metabolic Panel (non-fasting) (12/16/2021 4:30 AM EDT) P athologist Signature Glucose Lvl 84 65 - 199 [facility] mg/dL [facility] Comment: Diabetes: >=200 mg/dL plus symp toms BUN 6 (L) 10 - 20 mg/dL [facility] Creatinine 1.08 0.80 - 1.50 mg/dL [facility] Sodium 142 135 - 145 mmol/L [facility] Potassium 3.5 3.5 - 5.0 mmol/L [facility] Comment: Please note: ??Patients with WBC >100,00 0 may have falsely elevated Potassium levels. ??For accurate Potassium quantif ication in these patients send serum separator tube (gold top) for subsequent determinations. ??Contact the Clinical Chemistry Laboratory if there are any qu estions. Chloride 108 (H) 98 - 107 mmol/L [facility] CO2 24 22 - 31 mmol/L [facility] Anion Gap 10 5 - 15 mmol/L [facility] Calcium 8.6 8.5 - 10.5 mg/dL [facility] Estimated GFR 74 >=60 mL/min/1.73 m?? [facility] Comment: This patient's estimated GFR [...] Jolley MD CHEMISTRY ORDERABLES Performing Organization Address City/State/ZIP [place] [address] Phosphorus (12/16/2021 4:30 AM EDT) P athologist Signature Phosphorus 2.6 2.5 - 4.5 [facility] mg/dL [facility] LABOR[facility]ORY Specimen Anatomical Collection Method Collection Time Receive d Time (Source) Location / / Volume Laterality Blood 12/16/2021 4:30 AM 2 4:51 EDT AM EDT Resulting Agency Comment Spec In Lab Abdulkadir Jolley MD CHEMISTRY ORDERABLES Performing Organization Address City/State/ZIP Code Phon e Number [address] Magnesium (12/16/2021 4:30 AM EDT) athologist Signature Magnesium 0.71 0.69 - 1.07 [facility] mmol/L [facility] LABORATORY Specimen Anatomical Collection Method Collection Time Receive d Time (Source) Location / / Volume Laterality Blood 12/16/2021 4:30 AM 2 4:51 EDT AM EDT Resulting Agency Comment Spec In Lab Joseph Almaraz MD CHEMISTRY ORDERABLES Performing Organization Address City/[facility] Phon e Number [address] Differential, Automated (12/15/2021 4:22 AM EDT) athologist Signature Neutrophils % 59.6 % [facility] Neutr Abs (ANC) 5.09 1.70 - [facility] 6.10 [facility] x10(3)/[facility] LABORATORY Lymphocytes % 27.8 % [facility] Lymphocytes Abs 2.4 0.9 - 3.2 [facility] x10(3)/[facility] LABORATORY Monocytes % 8.7 % [facility] Monocyte Abs 0.7 0.3 - 0.9 [facility] x10(3)/[facility] LABORATORY Eosinophils % 2.9 % [facility] Eosinophils Abs 0.2 0.0 - 0.4 [facility] x10(3)/[facility] LABORATORY Basophils % 0.5 % [facility] Basophils Abs 0.0 0.0 - 0.1 [facility] x10(3)/[facility] LABORATORY Immature Gran % 0.50 % [facility] Comment: Immature granulocytes(IG's)percentage an d absolute count will include metamyelocytes, myelocytes, and promyelo cytes. Blood smears from CBCs yielding IG's will be scanned manually for concor dance. If this scan disagrees with the automated IG or if promyelocytes are not ed, a manual differential will be performed. Nasreen Gran Abs 0.04 0.00 - 0.04 x10(3)/[facility] LABORATORY Specimen Anatomical Collection Method Collection Time Receive d Time (Source) Location / / Volume Laterality Blood 12/15/2021 4:22 AM 4:42 EDT AM EDT Resulting Agency Comment Spec In Lab Abdulkadir Jolley MD HEMATOLOGY ORDERABLES Performing Organization Address City/State/ZIP [place] [address] (ABNORMAL) Hemogram (12/15/2021 4:22 AM EDT) Analysis Performed At Patho logist Time Signature WBC 8.5 4.0 - 9.5 [facility] x10(3)/[facility] LABORATORY RBC 4.53 (L) 4.58 - [facility] 5.54 [facility] x10(6)/[facility] LABORATORY Hemoglobin 14.0 13.7 - [facility] g/dL [facility] LABORATORY Hematocrit 41.3 40.5 - [facility] 48.5 % [facility] LABORATORY MCV 91.2 82.9 - [facility].1 [facility] LABORATORY MCH 30.9 27.5 - [facility] 32.1 pg [facility] LABORATORY MCHC 33.9 32.0 - [facility] 35.7 g/dL [facility] LABORATORY Platelets 290 145 - 357 [facility] x10(3)/[facility] LABORATORY RDWSD 47.5 (H) 36.0 - [facility] 45.0 [facility] LABORATORY RDWCV 14.2 (H) 11.4 - [facility] JOEL 13.8 % [facility] LABORATORY MPV 10.6 7.6 - 12.9 [facility] LABORATORY nRBC % Auto 0.0 % [facility] nRBC Abs Auto 0.000 0.000 - [facility] JOEL 0.000 [facility] x10(3)/[facility] LABORATORY Specimen Anatomical Collection Method Collection Time Receive d Time (Source) Location / / Volume Laterality Blood 12/15/2021 4:22 AM 2 4:42 EDT AM EDT Resulting Agency Comment Spec In Lab Abdulkadir Jolley MD HEMATOLOGY ORDERABLES Performing Organization Address City/State/ZIP [place] [address] (ABNORMAL) Basic Metabolic Panel (non-fasting) (12/15/2021 4:22 AM EDT) athologist Signature Glucose Lvl 82 65 - 199 [facility] mg/dL [facility]ORY Comment: Diabetes: >=200 mg/dL plus symp toms BUN 7 (L) 10 - 20 mg/dL [facility] Creatinine 1.10 0.80 - 1.50 mg/dL [facility] Sodium 142 135 - 145 mmol/L [facility] Potassium 3.7 3.5 - 5.0 mmol/L [facility] Comment: Please note: ??Patients with WBC >100,00 0 may have falsely elevated Potassium levels. ??For accurate Potassium quantif ication in these patients send serum separator tube (gold top) for subsequent determinations. ??Contact the Clinical Chemistry Laboratory if there are any qu estions. Chloride 109 (H) 98 - 107 mmol/L [facility] CO2 22 22 - 31 mmol/L [facility] Anion Gap 11 5 - 15 mmol/L [facility] Calcium 8.9 8.5 - 10.5 mg/dL [facility] Estimated GFR 72 >=60 mL/min/1.73 m?? [facility] Comment: This patient's estimated GFR [...] (Source) Location / / Volume Laterality Blood 12/15/2021 4:22 AM 2 4:42 EDT AM EDT Resulting Agency Comment Spec In Lab Abdulkadir Jolley MD CHEMISTRY ORDERABLES Performing Organization Address City/[facility]/ZIP Code Phon e Number [address] Phosphorus (12/15/2021 4:22 AM EDT) athologist Signature Phosphorus 2.7 2.5 - 4.5 [facility] LABOR[facility]ORY Specimen Anatomical Collection Method Collection Time Receive d Time (Source) Location / / Volume Laterality Blood 12/15/2021 4:22 AM 2 4:42 EDT AM EDT Resulting Agency Comment Spec In Lab Abdulkadir Jolley MD CHEMISTRY ORDERABLES Performing Organization Address City/[facility] Phon e Number [address] Differential, Automated (12/14/2021 4:20 AM EDT) athologist Signature Neutrophils % 64.2 % [facility] Neutr Abs (ANC) 5.91 1.70 - [facility] 6.10 [facility] x10(3)/[facility] LABORATORY Lymphocytes % 22.7 % [facility] Lymphocytes Abs 2.1 0.9 - 3.2 [facility] x10(3)/[facility] LABORATORY Monocytes % 8.2 % [facility] Monocyte Abs 0.8 0.3 - 0.9 [facility] x10(3)/[facility] LABORATORY Eosinophils % 3.8 % [facility] Eosinophils Abs 0.4 0.0 - 0.4 [facility] x10(3)/[facility] LABORATORY Basophils % 0.7 % [facility] Basophils Abs 0.1 0.0 - 0.1 [facility] x10(3)/[facility] LABORATORY Immature Gran % 0.40 % [facility] Comment: Immature granulocytes(IG's)percentage an d absolute count will include metamyelocytes, myelocytes, and promyelo cytes. Blood smears from CBCs yielding IG's will be scanned manually for concor dance. If this scan disagrees with the automated IG or if promyelocytes are not ed, a manual differential will be performed. Nasreen Gran Abs 0.04 0.00 - 0.04 x10(3)/[facility] MAR [facility] LABORATORY Specimen Anatomical Collection Method Collection Time Receive d Time (Source) Location / / Volume Laterality Blood 12/14/2021 4:20 AM 4:44 EDT AM EDT Resulting Agency Comment Spec In Lab Abdulkadir Jolley MD HEMATOLOGY ORDERABLES Performing Organization Address City/State/ZIP Code Phon e Number [place] [id number] LAB[address]ORY Drive (ABNORMAL) Hemogram (12/14/2021 4:20 AM EDT) Analysis Performed At Patho logist Time Signature WBC 9.2 4.0 - 9.5 [facility] x10(3)/[facility] LABORATORY RBC 4.66 4.58 - [facility] x10(6)/[facility] LABORATORY Hemoglobin 14.1 13.7 - [facility] 16.[facility] g/dL [facility] LABORATORY Hematocrit 42.4 40.5 - [facility] 48.5 % [facility]ORATORY MCV 91.0 82.9 - [facility] 93.1 [facility] LABORATORY MCH 30.3 27.5 - [facility] JOEL 32.1 pg [facility] LABORATORY MCHC 33.3 32.0 - [facility] 35.7 g/dL [facility] LABORATORY Platelets 288 145 - 357 [facility] x10(3)/[facility] LABORATORY RDWSD 46.5 (H) 36.0 - [facility] 45.0 [facility] LABORATORY RDWCV 14.0 (H) 11.4 - [facility] 13.8 % [facility] LABORATORY MPV 10.8 7.6 - 12.9 [facility] LABORATORY nRBC % Auto 0.0 % [facility] nRBC Abs Auto 0.000 0.000 - [facility] 0.000 [facility] x10(3)/[facility] LABORATORY Specimen Anatomical Collection Method Collection Time Receive d Time (Source) Location / / Volume Laterality Blood 12/14/2021 4:20 AM 4:44 EDT AM EDT Resulting Agency Comment Spec In Lab Abdulkadir Jolley MD HEMATOLOGY ORDERABLES Performing Organization Address City/State/ZIP [place] [address] (ABNORMAL) Basic Metabolic Panel (non-fasting) (12/14/2021 4:20 AM EDT) P athologist Signature Glucose Lvl 95 65 - 199 [facility] mg/dL [facility]ORY Comment: Diabetes: >=200 mg/dL plus symp toms BUN 7 (L) 10 - 20 mg/dL [facility] Creatinine 1.04 0.80 - 1.50 mg/dL [facility] Sodium 142 135 - 145 mmol/L [facility] Potassium 3.5 3.5 - 5.0 mmol/L [facility] Comment: Please note: ??Patients with WBC >100,00 0 may have falsely elevated Potassium levels. ??For accurate Potassium quantif ication in these patients send serum separator tube (gold top) for subsequent determinations. ??Contact the Clinical Chemistry Laboratory if there are any qu estions. Chloride 111 (H) 98 - 107 mmol/L [facility] CO2 21 (L) 22 - 31 mmol/L [facility] Anion Gap 10 5 - 15 mmol/L [facility] Calcium 9.0 8.5 - 10.5 mg/dL [facility] Estimated GFR 77 >=60 mL/min/1.73 m?? [facility] Comment: This patient's estimated GFR [...] (Source) Location / / Volume Laterality Blood 12/14/2021 4:20 AM 2 4:44 EDT AM EDT Resulting Agency Comment Spec In Lab Abdulkadir Jolley MD CHEMISTRY ORDERABLES Performing Organization Address City/State/ZIP Code Phon e Number [address] Phosphorus (12/14/2021 4:20 AM EDT) P athologist Signature Phosphorus 2.8 2.5 - 4.5 [facility] LABORATORY Specimen Anatomical Collection Method Collection Time Receive d Time (Source) Location / / Volume Laterality Blood 12/14/2021 4:20 AM 2 4:44 EDT AM EDT Resulting Agency Comment Spec In Lab Abdulkadir Jolley MD CHEMISTRY ORDERABLES Performing Organization Address City/[facility]/ZIP [facility] Phon e Number [address] (ABNORMAL) Differential, Automated (12/13/2021 2:59 AM EDT) Patholo gist Method Time Signature Neutrophils % 64.7 % [facility] Neutr Abs (ANC) 7.74 (H) 1.70 - [facility] 6.10 [facility] x10(3)/[facility] LABORATORY Lymphocytes % 22.8 % [facility]ORY Lymphocytes Abs 2.7 0.9 - 3.2 [facility] x10(3)/[facility] LABORATORY Monocytes % 6.6 % [facility] Monocyte Abs 0.8 0.3 - 0.9 [facility] x10(3)/[facility] LABORATORY Eosinophils % 4.6 % [facility] Eosinophils Abs 0.6 (H) 0.0 - 0.4 [facility] x10(3)/[facility] LABORATORY Basophils % 0.7 % [facility] Basophils Abs 0.1 0.0 - 0.1 [facility] x10(3)/[facility] LABORATORY Immature Gran % 0.60 % [facility] Comment: Immature granulocytes(IG's)percentage an d absolute count will include metamyelocytes, myelocytes, and promyelo cytes. Blood smears from CBCs yielding IG's will be scanned manually for concor dance. If this scan disagrees with the automated IG or if promyelocytes are not ed, a manual differential will be performed. Nasreen Gran Abs 0.07 (H) 0.00 - 0.04 x10(3)/[facility] LABORATORY Specimen Anatomical Collection Method Collection Time Receive d Time (Source) Location / / Volume Laterality Blood 12/13/2021 2:59 AM 2 3:10 EDT AM EDT Resulting Agency Comment Spec In Lab Abdulkadir Jolley MD HEMATOLOGY ORDERABLES Performing Organization Address City/State/ZIP [place] [address] (ABNORMAL) Hemogram (12/13/2021 2:59 AM EDT) Analysis Performed At Patho logist Time Signature WBC 12.0 (H) 4.0 - 9.5 [facility] x10(3)/[facility] LABORATORY RBC 4.66 4.58 - [facility] x10(6)/[facility] LABORATORY Hemoglobin 14.3 13.7 - [facility] g/dL [facility] LABORATORY Hematocrit 43.4 40.5 - [facility] 48.5 % [facility] LABORATORY MCV 93.1 82.9 - [facility] 93.1 fL [facility] LABORATORY MCH 30.7 27.5 - [facility] 32.1 pg [facility] LABORATORY MCHC 32.9 32.0 - [facility] 35.7 g/dL [facility] LABORATORY Platelets 278 145 - 357 [facility] x10(3)/[facility] LABORATORY RDWSD 47.8 (H) 36.0 - [facility] 45.0 [facility] LABORATORY RDWCV 13.9 (H) 11.4 - [facility] 13.8 % [facility] LABORATORY MPV 10.4 7.6 - 12.9 [facility] LABORATORY nRBC % Auto 0.0 % [facility] nRBC Abs Auto 0.000 0.000 - [facility] 0.000 [facility] x10(3)/[facility] LABORATORY Specimen Anatomical Collection Method Collection Time Receive d Time (Source) Location / / Volume Laterality Blood 12/13/2021 2:59 AM 2 3:10 EDT AM EDT Resulting Agency Comment Spec In Lab Abdulkadir Jolley MD HEMATOLOGY ORDERABLES Performing Organization Address City/State/[place] [address] (ABNORMAL) Basic Metabolic Panel (non-fasting) (12/13/2021 2:59 AM EDT) P athologist Signature Glucose Lvl 89 65 - 199 [facility] mg/dL [facility] LABORATORY Comment: Diabetes: >=200 mg/dL plus symp toms BUN 7 (L) 10 - 20 mg/dL [facility] LABOR[facility]ORY Creatinine 1.05 0.80 - 1.50 mg/dL [facility] Sodium 143 135 - 145 mmol/L [facility] Potassium 3.5 3.5 - 5.0 mmol/L [facility] Comment: Please note: ??Patients with WBC >100,00 0 may have falsely elevated Potassium levels. ??For accurate Potassium quantif ication in these patients send serum separator tube (gold top) for subsequent determinations. ??Contact the Clinical Chemistry Laboratory if there are any qu estions. Chloride 110 (H) 98 - 107 mmol/L [facility] CO2 22 22 - 31 mmol/L [facility] Anion Gap 11 5 - 15 mmol/L [facility] Calcium 9.2 8.5 - 10.5 mg/dL [facility] Estimated GFR 76 >=60 mL/min/1.73 m?? [facility] Comment: This patient's estimated GFR [...] (Source) Location / / Volume Laterality Blood 12/13/2021 2:59 AM 2 3:10 EDT AM EDT Resulting Agency Comment Spec In Lab Abdulkadir Jolley MD CHEMISTRY ORDERABLES Performing Organization Address City/State/ZIP Code Phon e Number [address] Phosphorus (12/13/2021 2:59 AM EDT) P athologist Signature Phosphorus 2.9 2.5 - 4.5 [facility] mg/dL [facility] LABORATORY Specimen Anatomical Collection Method Collection Time Receive d Time (Source) Location / / Volume Laterality Blood 12/13/2021 2:59 AM 2 3:10 EDT AM EDT Resulting Agency Comment Spec In Lab Abdulkadir Jolley MD CHEMISTRY ORDERABLES Performing Organization Address City/State/ZIP Code Phon e Number [address] Osmolality, urine, random (12/12/2021 8:55 PM EDT) P athologist Signature U Osmolality 106 50 - 1,200 [facility] mOsm/kg [facility] LABORATORY Specimen Anatomical Collection Method Collection Time Receive d Time (Source) Location / / Volume Laterality Urine 12/12/2021 8:55 PM 9:03 EDT PM EDT Resulting Agency Comment Spec In Lab Abdulkadir Jolley MD URINE ORDERABLES Performing Organization Address City/State/ZIP [place] [address] (ABNORMAL) Basic Metabolic Panel (non-fasting) (12/12/2021 8:26 PM EDT) P athologist Signature Glucose Lvl 92 65 - 199 [facility] mg/dL [facility] LABORATORY Comment: Diabetes: >=200 mg/dL plus symp toms BUN 7 (L) 10 - 20 mg/dL [facility] LABORATORY Creatinine 1.12 0.80 - 1.50 mg/dL [facility] LABORATORY Sodium 140 135 - 145 mmol/L [facility] LABORATORY Potassium 3.7 3.5 - 5.0 mmol/L [facility] LABORATORY Comment: Please note: ??Patients with WBC >100,00 0 may have falsely elevated Potassium levels. ??For accurate Potassium quantif ication in these patients send serum separator tube (gold top) for subsequent determinations. ??Contact the Clinical Chemistry Laboratory if there are any qu estions. Chloride 106 98 - 107 mmol/L [facility] LABORATORY Comment: result rechecked-trb CO2 25 22 - 31 mmol/L [facility] LABORATORY Anion Gap 9 5 - 15 mmol/L [facility] LABORATORY Calcium 9.2 8.5 - 10.5 mg/dL [facility] LABORATORY Estimated GFR 71 >=60 mL/min/1.73 m?? [facility] LABORATORY Comment: This patient's estimated GFR [...] (Source) Location / / Volume Laterality Blood 12/12/2021 8:26 PM 2 8:31 EDT PM EDT Resulting Agency Comment Spec In Lab Abdulkadir Jolley MD CHEMISTRY ORDERABLES Performing Organization Address City/[facility]/ZIP Code Phon e Number [address] Osmolality, urine, random (12/12/2021 9:26 AM EDT) P athologist Signature U Osmolality 154 50 - 1,200 [facility] mOsm/kg [facility] LABORATORY Specimen Anatomical Collection Method Collection Time Receive d Time (Source) Location / / Volume Laterality Urine 12/12/2021 9:26 AM 2 9:38 EDT AM EDT Resulting Agency Comment Spec In Lab Abdulkadir Jolley MD URINE ORDERABLES Performing Organization Address City/[facility]/[place] [address] (ABNORMAL) Specific [place], Urine (12/12/2021 9:26 AM EDT) Patholo gist Method Time Signature Spec [place] 1.004 (L) 1.005 - [facility] UA 1.030 [facility] LABORATORY Specimen Anatomical Collection Method Collection Time Receive d Time (Source) Location / / Volume Laterality Urine 12/12/2021 9:26 AM 2 9:37 EDT AM EDT Resulting Agency Comment Spec In Lab Abdulkadir Jolley MD URINE ORDERABLES Performing Organization Address City/[facility]/ZIP [facility] [place] [address] Electrolytes, urine, random (12/12/2021 9:26 AM EDT) P athologist Signature U Sodium 70 mmol/L [facility] LABORATORY U Potassium 6 mmol/L [facility] LABORATORY U Chloride 60 mmol/L [facility] LABORATORY Specimen Anatomical Collection Method Collection Time Receive d Time (Source) Location / / Volume Laterality Urine 12/12/2021 9:26 AM 2 9:37 EDT AM EDT Resulting Agency Comment Spec In Lab Abdulkadir Jolley MD URINE ORDERABLES Performing Organization Address City/State/ZIP [place] [address] (ABNORMAL) Differential, Automated (12/12/2021 4:33 AM EDT) [facility] Method Time Signature Neutrophils % 63.8 % [facility] LABORATORY Neutr Abs (ANC) 6.85 (H) 1.70 - [facility] 6.10 [facility] x10(3)/[facility] LABORATORY Lymphocytes % 22.8 % [facility] LABORATORY Lymphocytes Abs 2.4 0.9 - 3.2 [facility] x10(3)/[facility] LABORATORY Monocytes % 7.3 % [facility] LABORATORY Monocyte Abs 0.8 0.3 - 0.9 [facility] x10(3)/[facility] LABORATORY Eosinophils % 5.1 % [facility] LABORATORY Eosinophils Abs 0.6 (H) 0.0 - 0.4 [facility] x10(3)/[facility] LABORATORY Basophils % 0.6 % [facility] LABORATORY Basophils Abs 0.1 0.0 - 0.1 [facility] x10(3)/[facility] LABORATORY Immature Gran % 0.40 % [facility] LABORATORY Comment: Immature granulocytes(IG's)percentage an d absolute count will include metamyelocytes, myelocytes, and promyelo cytes. Blood smears from CBCs yielding IG's will be scanned manually for concor dance. If this scan disagrees with the automated IG or if promyelocytes are not ed, a manual differential will be performed. Nasreen Gran Abs 0.04 0.00 - 0.04 x10(3)/[facility] LABORATORY Specimen Anatomical Collection Method Collection Time Receive d Time (Source) Location / / Volume Laterality Blood 12/12/2021 4:33 AM 2 4:58 EDT AM EDT Resulting Agency Comment Spec In Lab Abdulkadir Jolley MD HEMATOLOGY ORDERABLES Performing Organization Address City/State/ZIP [place] [address] (ABNORMAL) Hemogram (12/12/2021 4:33 AM EDT) Analysis Performed At Patho logist Time Signature WBC 10.7 (H) 4.0 - 9.5 [facility] LABORATORY RBC 4.39 (L) 4.58 - [place] JOEL 5.54 [facility] x10(6)/[facility] LABORATORY Hemoglobin 13.6 (L) 13.7 - [facility] 16.5 g/dL [facility] LABORATORY Hematocrit 40.3 (L) 40.5 - [facility] 48.5 % [facility] LABORATORY MCV 91.8 82.9 - [facility] 93.1 [facility] LABORATORY MCH 31.0 27.5 - [facility] JOEL 32.1 pg [facility] LABORATORY MCHC 33.7 32.0 - [place] 35.7 g/dL [facility] LABORATORY Platelets 275 145 - 357 [facility] LABORATORY RDWSD 48.3 (H) 36.0 - [facility] JOEL 45.0 [facility] LABORATORY RDWCV 14.3 (H) 11.4 - [facility] 13.8 % [facility] LABORATORY MPV 10.5 7.6 - 12.9 [facility] LABORATORY nRBC % Auto 0.0 % [facility] LABORATORY nRBC Abs Auto 0.000 0.000 - [facility] JOEL 0.000 [facility] x10(3)/[facility] LABORATORY Specimen Anatomical Collection Method Collection Time Receive d Time (Source) Location / / Volume Laterality Blood 12/12/2021 4:33 AM 4:58 EDT AM EDT Resulting Agency Comment Spec In Lab Abdulkadir Jolley MD HEMATOLOGY ORDERABLES Performing Organization Address City/State/ZIP [place] [address] (ABNORMAL) Basic Metabolic Panel (non-fasting) (12/12/2021 4:33 AM EDT) P athologist Signature Glucose Lvl 84 65 - 199 [facility] mg/dL [facility] LABORATORY Comment: Diabetes: >=200 mg/dL plus symp toms BUN 7 (L) 10 - 20 mg/dL [facility] LABORATORY Creatinine 1.19 0.80 - 1.50 mg/dL [facility] LABORATORY Sodium 146 (H) 135 - 145 mmol/L [facility] LABORATORY Potassium 3.8 3.5 - 5.0 mmol/L [facility] LABORATORY Comment: Please note: ??Patients with WBC >100,00 0 may have falsely elevated Potassium levels. ??For accurate Potassium quantif ication in these patients send serum separator tube (gold top) for subsequent determinations. ??Contact the Clinical Chemistry Laboratory if there are any qu estions. Chloride 116 (H) 98 - 107 mmol/L [facility] LABORATORY CO2 23 22 - 31 mmol/L [facility] LABORATORY Anion Gap 7 5 - 15 mmol/L [facility] LABORATORY Calcium 8.8 8.5 - 10.5 mg/dL [facility] LABORATORY Estimated GFR 66 >=60 mL/min/1.73 m?? [facility] LABORATORY Comment: This patient's estimated GFR [...] (Source) Location / / Volume Laterality Blood 12/12/2021 4:33 AM 2 4:58 EDT AM EDT Resulting Agency Comment Spec In Lab Abdulkadir Jolley MD CHEMISTRY ORDERABLES Performing Organization Address City/State/ZIP Code Phon e Number [place] Phosphorus (12/12/2021 4:33 AM EDT) P athologist Signature Phosphorus 3.8 2.5 - 4.5 [facility] LABORATORY Specimen Anatomical Collection Method Collection Time Receive d Time (Source) Location / / Volume Laterality Blood 12/12/2021 4:33 AM 4:58 EDT AM EDT Resulting Agency Comment Spec In Lab Abdulkadir Jolley MD CHEMISTRY ORDERABLES Performing Organization Address City/State/ZIP Code Phon e Number [address] (ABNORMAL) Differential, Automated (12/11/2021 4:38 AM EDT) Patholo gist Method Time Signature Neutrophils % 57.1 % [facility] LABORATORY Neutr Abs (ANC) 6.36 (H) 1.70 - [facility] 6.10 [facility] x10(3)/[facility] LABORATORY Lymphocytes % 28.6 % [facility] LABORATORY Lymphocytes Abs 3.2 0.9 - 3.2 [facility] x10(3)/[facility] LABORATORY Monocytes % 8.6 % [facility] LABORATORY Monocyte Abs 1.0 (H) 0.3 - 0.9 [facility] x10(3)/[facility] LABORATORY Eosinophils % 4.8 % [facility] LABORATORY Eosinophils Abs 0.5 (H) 0.0 - 0.4 [facility] x10(3)/[facility] LABORATORY Basophils % 0.5 % [facility] LABORATORY Basophils Abs 0.1 0.0 - 0.1 [facility] x10(3)/[facility] LABORATORY Immature Gran % 0.40 % [facility] LABORATORY Comment: Immature granulocytes(IG's)percentage an d absolute count will include metamyelocytes, myelocytes, and promyelo cytes. Blood smears from CBCs yielding IG's will be scanned manually for concor dance. If this scan disagrees with the automated IG or if promyelocytes are not ed, a manual differential will be performed. Nasreen Gran Abs 0.05 (H) 0.00 - 0.04 x10(3)/[facility] LABORATORY Specimen Anatomical Collection Method Collection Time Receive d Time (Source) Location / / Volume Laterality Blood 12/11/2021 4:38 AM 2 4:50 EDT AM EDT Resulting Agency Comment Spec In Lab Abdulkadir Jolley MD HEMATOLOGY ORDERABLES Performing Organization Address City/State/ZIP [place] [address] (ABNORMAL) Hemogram (12/11/2021 4:38 AM EDT) Analysis Performed At Patho logist Time Signature WBC 11.2 (H) 4.0 - 9.5 [facility] x10(3)/[facility] LABORATORY RBC 4.15 (L) 4.58 - [facility] 5.54 [facility] x10(6)/[facility] LABORATORY Hemoglobin 12.9 (L) 13.7 - [facility] 16.5 g/dL [facility] LABORATORY Hematocrit 37.9 (L) 40.5 - [facility] 48.5 % [facility] LABORATORY MCV 91.3 82.9 - [facility] 93.1 [facility] LABORATORY MCH 31.1 27.5 - [facility] 32.1 pg [facility] LABORATORY MCHC 34.0 32.0 - [facility] 35.7 g/dL [facility] LABORATORY Platelets 284 145 - 357 [facility] x10(3)/[facility] LABORATORY RDWSD 47.8 (H) 36.0 - [facility] JOEL 45.0 [facility] LABORATORY RDWCV 14.3 (H) 11.4 - [facility] JOEL 13.8 % [facility] LABORATORY MPV 10.4 7.6 - 12.9 [facility] LABORATORY nRBC % Auto 0.0 % [facility] LABORATORY nRBC Abs Auto 0.000 0.000 - [facility] JOEL 0.000 [facility] x10(3)/[facility] LABORATORY Specimen Anatomical Collection Method Collection Time Receive d Time (Source) Location / / Volume Laterality Blood 12/11/2021 4:38 AM 2 4:50 EDT AM EDT Resulting Agency Comment Spec In Lab Abdulkadir Jolley MD HEMATOLOGY ORDERABLES Performing Organization Address City/State/ZIP [place] [address] (ABNORMAL) Basic Metabolic Panel (non-fasting) (12/11/2021 4:38 AM EDT) P athologist Signature Glucose Lvl 83 65 - 199 [facility] mg/dL [facility] LABORATORY Comment: Diabetes: >=200 mg/dL plus symp toms BUN 8 (L) 10 - 20 mg/dL [facility] LABORATORY Creatinine 1.31 0.80 - 1.50 mg/dL [facility] LABORATORY Sodium 142 135 - 145 mmol/L [facility] LABORATORY Potassium 3.5 3.5 - 5.0 mmol/L [facility] LABORATORY Comment: Please note: ??Patients with WBC >100,00 0 may have falsely elevated Potassium levels. ??For accurate Potassium quantif ication in these patients send serum separator tube (gold top) for subsequent determinations. ??Contact the Clinical Chemistry Laboratory if there are any qu estions. Chloride 109 (H) 98 - 107 mmol/L [facility] LABORATORY CO2 22 22 - 31 mmol/L [facility] LABORATORY Anion Gap 11 5 - 15 mmol/L [facility] LABORATORY Calcium 8.5 8.5 - 10.5 mg/dL [facility] LABORATORY Estimated GFR 59 (L) >=60 mL/min/1.73 m?? [facility] LABORATORY Comment: This patient's estimated GFR [...] (Source) Location / / Volume Laterality Blood 12/11/2021 4:38 AM 2 4:50 EDT AM EDT Resulting Agency Comment Spec In Lab Abdulkadir Jolley MD CHEMISTRY ORDERABLES Performing Organization Address City/[facility]/ZIP Code Phon e Number [address] (ABNORMAL) Phosphorus (12/11/2021 4:38 AM EDT) P athologist Signature Phosphorus 4.7 (H) 2.5 - 4.5 [facility] LABORATORY Specimen Anatomical Collection Method Collection Time Receive d Time (Source) Location / / Volume Laterality Blood 12/11/2021 4:38 AM 2 4:50 EDT AM EDT Resulting Agency Comment Spec In Lab Abdulkadir Jolley MD CHEMISTRY ORDERABLES Performing Organization Address City/[facility]/[place] [address] (ABNORMAL) Differential, Automated (12/10/2021 4:56 AM EDT) Patholo gist Method Time Signature Neutrophils % 74.7 % [facility] LABORATORY Neutr Abs (ANC) 8.44 (H) 1.70 - [facility] 6.10 [facility] x10(3)/[facility] LABORATORY Lymphocytes % 13.6 % [facility] LABORATORY Lymphocytes Abs 1.5 0.9 - 3.2 [facility] x10(3)/[facility] LABORATORY Monocytes % 7.9 % [facility] LABORATORY Monocyte Abs 0.9 0.3 - 0.9 [facility] x10(3)/[facility] LABORATORY Eosinophils % 2.7 % [facility] LABORATORY Eosinophils Abs 0.3 0.0 - 0.4 [facility] x10(3)/[facility] LABORATORY Basophils % 0.4 % [facility] LABORATORY Basophils Abs 0.0 0.0 - 0.1 [facility] x10(3)/[facility] LABORATORY Immature Gran % 0.70 % [facility] LABORATORY Comment: Immature granulocytes(IG's)percentage an d absolute count will include metamyelocytes, myelocytes, and promyelo cytes. Blood smears from CBCs yielding IG's will be scanned manually for concor dance. If this scan disagrees with the automated IG or if promyelocytes are not ed, a manual differential will be performed. Nasreen Gran Abs 0.08 (H) 0.00 - 0.04 x10(3)/[facility] LABORATORY Specimen Anatomical Collection Method Collection Time Receive d Time (Source) Location / / Volume Laterality Blood 12/10/2021 4:56 AM 5:14 EDT AM EDT Resulting Agency Comment Spec In Lab Abdulkadir Jolley MD HEMATOLOGY ORDERABLES Performing Organization Address City/State/[place] [address] (ABNORMAL) Hemogram (12/10/2021 4:56 AM EDT) Analysis Performed At Patho logist Time Signature WBC 11.3 (H) 4.0 - 9.5 [facility] x10(3)/[facility] LABORATORY RBC 4.47 (L) 4.58 - [facility] 5.54 [facility] x10(6)/[facility] LABORATORY Hemoglobin 13.5 (L) 13.7 - [facility] 16.5 g/dL [facility] LABORATORY Hematocrit 40.3 (L) 40.5 - [facility] 48.5 % [facility] LABORATORY MCV 90.2 82.9 - [facility] JOEL 93.1 [facility] LABORATORY MCH 30.2 27.5 - [place] JO[place] 32.1 pg [facility] LABORATORY MCHC 33.5 32.0 - [facility] 35.7 g/dL [facility] LABORATORY Platelets 324 145 - 357 [facility] x10(3)/[facility] LABORATORY RDWSD 45.4 (H) 36.0 - [facility] 45.0 [facility] RDWCV 13.8 11.4 - [facility] 13.8 % [facility] LABORATORY MPV 10.6 7.6 - 12.9 [facility] LABORATORY nRBC % Auto 0.0 % [facility] LABORATORY nRBC Abs Auto 0.000 0.000 - [facility] 0.000 [facility] x10(3)/[facility] LABORATORY Specimen Anatomical Collection Method Collection Time Receive d Time (Source) Location / / Volume Laterality Blood 12/10/2021 4:56 AM 5:14 EDT AM EDT Resulting Agency Comment Spec In Lab Abdulkadir Jolley MD HEMATOLOGY ORDERABLES Performing Organization Address City/State/ZIP [place] [address] (ABNORMAL) Basic Metabolic Panel (non-fasting) (12/10/2021 4:56 AM EDT) P athologist Signature Glucose Lvl 95 65 - 199 [facility] mg/dL [facility] LABORATORY Comment: Diabetes: >=200 mg/dL plus symp toms BUN 10 10 - 20 mg/dL [facility] LABORATORY Creatinine 1.27 0.80 - 1.50 mg/dL [facility] LABORATORY Sodium 146 (H) 135 - 145 mmol/L [facility] LABORATORY Potassium 3.8 3.5 - 5.0 mmol/L [facility] LABORATORY Comment: Please note: ??Patients with WBC >100,00 0 may have falsely elevated Potassium levels. ??For accurate Potassium quantif ication in these patients send serum separator tube (gold top) for subsequent determinations. ??Contact the Clinical Chemistry Laboratory if there are any qu estions. Chloride 114 (H) 98 - 107 mmol/L [facility] LABORATORY CO2 20 (L) 22 - 31 mmol/L [facility] LABORATORY Anion Gap 12 5 - 15 mmol/L [facility] LABORATORY Calcium 8.7 8.5 - 10.5 mg/dL [facility] LABORATORY Estimated GFR 61 >=60 mL/min/1.73 m?? [facility] LABORATORY Comment: This patient's estimated GFR [...] (Source) Location / / Volume Laterality Blood 12/10/2021 4:56 AM 2 5:14 EDT AM EDT Resulting Agency Comment Spec In Lab Abdulkadir Jolley MD CHEMISTRY ORDERABLES Performing Organization Address City/State/ZIP Code Phon e Number [address] Phosphorus (12/10/2021 4:56 AM EDT) athologist Signature Phosphorus 3.3 2.5 - 4.5 [facility] mg/dL [facility] LABORATORY Comment: result rechecked-sf Specimen Anatomical Collection Method Collection Time Receive d Time (Source) Location / / Volume Laterality Blood 12/10/2021 4:56 AM 2 5:14 EDT AM EDT Resulting Agency Comment Spec In Lab Abdulkadir Jolley MD CHEMISTRY ORDERABLES Performing Organization Address City/State/[place] [address] XR Chest One View (12/10/2021 4:32 AM [...] who have questions please contact the health child care assistant that requested your imaging first. ? Narrative [...] acute cardiopulmonary findings. Preliminary report signed by: Kialash breen at 12/10/2021 4:43 AM I have [...] ho have questions please contact the health child care assistant that requested your imaging first. Colby Mercedes MD IMG DX ORDERABLES EKG 12 Lead (12/10/2021 4:05 AM EDT) Component Value Ref Range Test Analysis Performed Pathologis t Method Time At Signature Ventricular rate 64 BPM MUSE SYSTEM Atrial Rate 64 BPM MUSE SYSTEM P-R Interval 240 ms MUSE SYSTEM QRS Duration 176 ms MUSE SYSTEM Q-T Interval 472 ms MUSE SYSTEM QTC Calculated 486 ms MUSE SYSTEM (Bezet) Calculated P [place] 66 degrees MUSE SYSTEM Calculated R [place] -28 degrees MUSE SYSTEM Calculated T [place] 167 degrees MUSE SYSTEM INTERPRETATION Sinus rhythm with 1st degree A-V block MUSE SYSTEM Left bundle branch block Abnormal ECG When compared with ECG of 08-DEC-2021 17:16, [place] interval has increased T wave inversion now evident in Inferior leads T wave inversion more evident in Lateral leads I personally reviewed the tracing and edited the fellows int erpretation Confirmed by fellow MD Killian, Tello ([id number]) on 2 1:40:27 PM Confirmed by Marge Torres ([id number]) on 12/10/2021 1:53:13 PM Specimen Anatomical Collection Method Collection Time Receive d Time (Source) Location / / Volume Laterality 12/10/2021 4:05 AM 2 1:53 EDT PM EDT Colby Mercedes MD ECG ORDERABLES Performing Organization Address City/State/ZIP Code Phon e Number MUSE SYSTEM (ABNORMAL) Differential, Automated (12/09/2021 10:54 AM EDT) Patholo gist Method Time Signature Neutrophils % 73.4 % [facility] LABORATORY Neutr Abs (ANC) 7.29 (H) 1.70 - [facility] 6.10 [facility] x10(3)/[facility] LABORATORY Lymphocytes % 17.2 % [facility] LABORATORY Lymphocytes Abs 1.7 0.9 - 3.2 [facility] x10(3)/[facility] LABORATORY Monocytes % 6.8 % [facility] LABORATORY Monocyte Abs 0.7 0.3 - 0.9 [facility] x10(3)/[facility] LABORATORY Eosinophils % 1.4 % [facility] LABORATORY Eosinophils Abs 0.1 0.0 - 0.4 [facility] x10(3)/[facility] LABORATORY Basophils % 0.4 % [facility] LABORATORY Basophils Abs 0.0 0.0 - 0.1 [facility] x10(3)/[facility] LABORATORY Immature Gran % 0.80 % [facility] LABORATORY Comment: Immature granulocytes(IG's)percentage an d absolute count will include metamyelocytes, myelocytes, and promyelo cytes. Blood smears from CBCs yielding IG's will be scanned manually for concor dance. If this scan disagrees with the automated IG or if promyelocytes are not ed, a manual differential will be performed. Nasreen Gran Abs 0.08 (H) 0.00 - 0.04 x10(3)/[facility] LABORATORY Specimen Anatomical Collection Method Collection Time Receive d Time (Source) Location / / Volume Laterality Blood 12/09/2021 10:54 12/09/2021 AM EDT 11:24 AM EDT Resulting Agency Comment Spec In Lab Colby Mercedes MD HEMATOLOGY ORDERABLES Performing Organization Address City/State/ZIP [place] [address] (ABNORMAL) Hemogram (12/09/2021 10:54 AM EDT) P athologist Signature WBC 9.9 (H) 4.0 - 9.5 [facility] x10(3)/[facility] LABORATORY RBC 4.94 4.58 - [facility] 5.54 [facility] x10(6)/[facility] LABORATORY Hemoglobin 15.1 13.7 - [facility]/dL [facility] LABORATORY Hematocrit 43.0 40.5 - [facility] 48.5 % [facility] LABORATORY MCV 87.0 82.9 - [facility] 93.1 fL [facility] MCH 30.6 27.5 - [facility] 32.1 pg [facility] MCHC 35.1 32.0 - [facility] 35.7 g/dL [facility] Platelets 368 (H) 145 - 357 [facility] x[facility] LABORATORY RDWSD 41.9 36.0 - ISHAN MALDONADO 45.0 [facility] LABORATORY RDWCV 13.2 11.4 - [facility] JOEL 13.8 % [facility] MPV 10.5 7.6 - 12.9 [facility] LAB[facility]ATORY nRBC % Auto 0.0 % [facility] LAB[facility] nRBC Abs Auto 0.000 0.000 - [facility] JOEL 0.000 [facility] x10(3)/[facility] LABORATORY Specimen Anatomical Collection Method Collection Time Receive d Time (Source) Location / / Volume Laterality Blood 12/09/2021 10:54 12/09/2021 AM EDT 11:24 AM EDT Resulting Agency Comment Spec In Lab Colby Mercedes MD HEMATOLOGY ORDERABLES Performing Organization Address City/[facility]/[place] [address] Magnesium (12/09/2021 10:54 AM EDT) P athologist Signature Magnesium 0.72 0.69 - 1.07 [facility] JOEL mmol/L [facility] Specimen Anatomical Collection Method Collection Time Receive d Time (Source) Location / / Volume Laterality Blood 12/09/2021 10:54 12/09/2021 AM EDT 11:24 AM EDT Resulting Agency Comment Spec In Lab Colby Mercedes MD CHEMISTRY ORDERABLES Performing Organization Address City/[facility]/[place] [address] (ABNORMAL) Phosphorus (12/09/2021 10:54 AM EDT) P athologist Signature Phosphorus 1.2 2.5 - 4.5 ISHAN MALDONADO (Critical) mg/dL [facility] Comment: Called by: MOE, Read back by: Tommie Perrin, Date/Time:12/09/21 12:14. Specimen Anatomical Collection Method Collection Time Receive d Time (Source) Location / / Volume Laterality Blood 12/09/2021 10:54 12/09/2021 AM EDT 11:24 AM EDT Resulting Agency Comment Spec In Lab Colby Mercedes MD CHEMISTRY ORDERABLES Performing Organization Address City/State/ZIP [place] [address] (ABNORMAL) Basic Metabolic Panel (non-fasting) (12/09/2021 10:54 AM EDT) athologist Signature Glucose Lvl 94 65 - 199 [facility] mg/dL [facility] Comment: Diabetes: >=200 mg/dL plus symp toms BUN 9 (L) 10 - 20 mg/dL [facility] Creatinine 1.17 0.80 - 1.50 mg/dL [facility] Sodium 142 135 - 145 mmol/L [facility] Potassium 3.3 (L) 3.5 - 5.0 mmol/L [facility] Comment: Please note: ??Patients with WBC >100,00 0 may have falsely elevated Potassium levels. ??For accurate Potassium quantif ication in these patients send serum separator tube (gold top) for subsequent determinations. ??Contact the Clinical Chemistry Laboratory if there are any qu estions. Chloride 107 98 - 107 mmol/L [facility] CO2 20 (L) 22 - 31 mmol/L [facility] Anion Gap 15 5 - 15 mmol/L [facility] Calcium 9.5 8.5 - 10.5 mg/dL [facility] Estimated GFR 67 >=60 mL/min/1.73 m?? [facility] Comment: This patient's estimated GFR [...] (Source) Location / / Volume Laterality Blood 12/09/2021 10:54 12/09/2021 AM EDT 11:24 AM EDT Resulting Agency Comment Spec In Lab Colby Mercedes MD CHEMISTRY ORDERABLES Performing Organization Address City/State/ZIP [place] [address] (ABNORMAL) Rapid Drug Screen w/o Confirmation, Urine (12/09/2021 8:29 AM EDT) [facility] Method Time Signature U Barbiturates None None ISHAN Screen Detected Detected [facility] Comment: The barbiturate screen detects barbitura [...] Benzodiazepines Screen Presumptive Pos (A) None Detected [facility] Comment: The benzodiazepines screen detects [...] U Cocaine Screen None Detected None Detected [facility] Comment: The cocaine metabolites screen detects b enzoylecgonine (Cocaine Metabolite) at concentrations >150 ng/mL. A ? Presumptive Positive? result indicates that the screening result was positive but has not yet been confirmed by a highly-specific method. As with any screen, occasional false positive re sults from cross-reacting substances may occur. Not for Medico-Legal Purposes. U Methadone Metabolites None Detected None Detected [facility] LABORATORY Comment: The methadone metabolite screen detects EDDP (major methadone metabolite) at concentrations >100 ng/mL. A ? Presumptive Positive? result indicates that the screening result was positive but has not yet been confirmed by a highly-specific method. As with any screen, occasional false positive re sults from cross-reacting substances may occur. Not for Medico-Legal Purposes. U Opiate Screen None Detected None Detected [facility] LABORATORY Comment: The opiates screen [...] U Cannabinoid Screen None Detected None Detected Dayron SALTER [facility] Comment: The marijuana metabolites screen detects the THC metabolite (06-ivb-7-carboxy-delta 9-THC) at concen trations >20 ng/mL. A ? Presumptive Positive? result indicates that the screening result was positive but has not yet been confirmed by a highly-specific method. As with any screen, occasional false positive re sults from cross-reacting substances may occur. Not for Medico-Legal Purposes. U Oxycodone Screen None Detected None Detected [facility] Comment: The oxycodone screen detects oxycodone a nd oxymorphone at concentrations >100 ng/mL. A ? Presumptive Positive? result indicates that the screening result was positive but has not yet been confirmed by a highly-specific method. As with any screen, occasional false positive re sults from cross-reacting substances may occur. Not for Medico-Legal Purposes. U Buprenorphine Screen None Detected None Detected [facility] Comment: The buprenorphine screen detects bupreno rphine at concentrations >5 ng/mL. A ? Presumptive Positive? result indicates that the screening result was positive but has not yet been confirmed by a highly-specific method. As with any screen, occasional false positive re sults from cross-reacting substances may occur. Not for Medico-Legal Purposes. U Fentanyl Screen None Detected None Detected Dayron GAETANO [facility] Comment: The fentanyl screen detects fentanyl at concentrations >2 ng/mL. A ? Presumptive Positive? result indicates that the screening result was positive but has not yet been confirmed by a highly-specific method. As with any screen, occasional false positive re sults from cross-reacting substances may occur. Not for Medico-Legal Purposes. U Tricyclics Screen None Detected None Detected VIOLET VERNON [facility] Comment: The tricyclics screen detects [...] U Ethanol Screen None Detected None Detected [facility] Comment: This urine ethanol assay detect s ethanol at concentrations >/= 100 mg/L. U Amphetamines Screen None Detected None Detected [facility] Comment: The amphetamine screen detects d-ampheta mine and d-methamphetamine at concentrations >300 ng/mL. A ? Presumptive Positive? result indicates that the screening result was positive but has not yet been confirmed by a highly-specific method. As with any screen, occasional false positive re sults from cross-reacting substances may occur. Not for Medico-Legal Purposes. U Adulterants Screen None Detected None Detected Dayron GAETANO [facility] Comment: No adulteration or dilution of [...] Baron APRN CHEMISTRY ORDERABLES Performing Organization Address City/State/ZIP [place] [address] Rapid Drug Screen, Urine (ROSE MARY Request) (12/09/2021 8:29 AM EDT) [facility] Method Time Signature ROSE MARY Conf No [facility] LABORATORY ROSE MARY Requested See Comment [facility] Comment: Refer to Rapid Drug Screen w/o Confirmation, Urine for results. Specimen Anatomical Collection Method Collection Time Receive d Time (Source) Location / / Volume Laterality Urine 12/09/2021 8:29 AM 8:39 EDT AM EDT Resulting Agency Comment Spec In Lab Adrian Bacaicoa PROGRESSIVE CARE UNIT REGISTERED NURSE URINE ORDERABLES Performing Organization Address City/State/ZIP Code Phon e Number [place] [id number] HOSPITAL LABORATORY Drive Urinalysis with reflex Culture (12/09/2021 8:29 AM EDT) [facility] Method Time Signature Glucose UA Negative Negative [facility] mg/dL [facility] Protein UA Negative Negative [facility] mg/dL [facility] Bilirubin UA Negative Negative [facility] mg/dL [facility] Comment: Clinical correlation required for positi ve Urine Bilirubin results as false positive may occur with some drugs and d rug related products. If a false positive is suspected a serum total bili buchanan should be considered if clinically indicated. Urobilinogen UA Normal Normal mg/dL [facility] pH UA 6.5 5.0 - 8.0 [facility] Blood UA Negative Negative mg/dL [facility] Ketones UA Negative Negative mg/dL [facility] Nitrite UA Negative Negative [facility] LABORATORY Leukocytes UA Negative Negative [facility] LABORATORY Appearance UA Clear Clear [facility] LABORATORY Spec [place] UA 1.006 1.005 - 1.030 [facility] LABORAT[facility] Color UA Yellow Yellow [facility] LABOR[facility] Culture Reflexed No [facility] LABORATORY Specimen Anatomical Collection Method Collection Time Receive d Time (Source) Location / / Volume Laterality Straight 12/09/2021 8:29 AM 8:39 Catheter Urine EDT AM EDT Resulting Agency Comment Spec In Lab Zelalem Flores MD URINE ORDERABLES Performing Organization Address City/[facility]/ZIP Code Phon e Number [address] Lyme IgG & IgM Antibody (12/08/2021 5:27 PM EDT) athologist Signature Lyme Screening Neg Neg [facility] Antibody [facility]ORATORY Specimen Anatomical Collection Method Collection Time Receive d Time (Source) Location / / Volume Laterality Blood Venous Draw / 12/08/2021 5:27 PM 12/10/19 22 7:48 Unknown EDT AM EDT Resulting Agency Comment Spec In Lab Aye Richards MD IMMUNOLOGY ORDERABLES Performing Organization Address City/[facility]/ZIP Code Phon e Number [address] Vitamin D, 25-Hydroxy (12/08/2021 5:27 PM EDT) [facility] Method Time Signature 25-OH Vit D 40 21 - 100 [facility] Total ng/mL [facility] LABORATORY 25-OH Vit D Sufficient [facility] LABORATORY Specimen Anatomical Collection Method Collection Time Receive d Time (Source) Location / / Volume Laterality Blood Venous Draw / 12/08/2021 5:27 PM 12/09/19 22 5:43 Unknown EDT PM EDT Resulting Agency Comment Spec In Lab Adrian Bacaicoa PROGRESSIVE CARE UNIT REGISTERED NURSE CHEMISTRY ORDERABLES Performing Organization Address City/[facility]/ZIP Code Phon e Number [address] Vitamin B12 (12/08/2021 5:27 PM EDT) athologist Signature Vitamin B-12 933 232 - 1,245 [facility] pg/mL [facility] LABORATORY Specimen Anatomical Collection Method Collection Time Receive d Time (Source) Location / / Volume Laterality Blood Venous Draw / 12/08/2021 5:27 PM 12/09/19 22 5:43 Unknown EDT PM EDT Resulting Agency Comment Spec In Lab Adrian Bacaicoa X, PROGRESSIVE CARE UNIT REGISTERED NURSE CHEMISTRY ORDERABLES Performing Organization Address City/[facility]/ZIP Code Phon e Number ISHAN JOEL[address] TSH [place] (12/08/2021 5:27 PM EDT) athologist Signature TSH 1.51 0.27 - 4.20 [facility] mcIU/mL [facility] LABORATORY Comment: Reference Interval (mcIU/mL): Females: ??First Trimester: 0.23-3.88 ??Second Trimester: 0.22-3.90 ??Third Trimester: 0.44-4.66 Specimen Anatomical Collection Method Collection Time Receive d Time (Source) Location / / Volume Laterality Blood 12/08/2021 5:27 PM 2 5:33 EDT PM EDT Resulting Agency Comment Spec In Lab Adrian Bacaicoa PROGRESSIVE CARE UNIT REGISTERED NURSE CHEMISTRY ORDERABLES Performing Organization Address City/[facility]/ZIP Code Phon e Number [address] Ethanol Level (12/08/2021 5:27 PM EDT) athologist Signature Ethanol Lvl <100 <=99 mg/L [facility] LABORATORY Comment: Greater than 800 mg/L [...] Agency Comment Spec In Lab Adrian Bacaicoa PROGRESSIVE CARE UNIT REGISTERED NURSE CHEMISTRY ORDERABLES Performing Organization Address City/[facility]/ZIP Code Phon e Number [address] EKG 12 Lead (12/08/2021 5:16 PM EDT) [facility] Method Time Signature Ventricular rate 79 BPM MUSE SYSTEM Atrial Rate 79 BPM MUSE SYSTEM P-R Interval 190 ms MUSE SYSTEM QRS Duration 162 ms MUSE SYSTEM Q-T Interval 430 ms MUSE SYSTEM QTC Calculated 493 ms MUSE SYSTEM (Bezet) Calculated P [place] 38 degrees MUSE SYSTEM Calculated R [place] -60 degrees MUSE SYSTEM Calculated T [place] 78 degrees MUSE SYSTEM INTERPRETATION Normal sinus rhythm MUSE SYSTEM Left axis deviation Left bundle branch block Abnormal ECG When compared with ECG of 10-AUG-1994 01:04, Left bundle branch block is now Present Confirmed by MD BENSON ARMIN ([id number]) on 12/09/2021 8:55:34 AM Specimen Anatomical Collection Method Collection Time Receive d Time (Source) Location / / Volume Laterality 12/08/2021 5:16 PM 8:55 EDT AM EDT Adrian Baron PROGRESSIVE CARE UNIT REGISTERED NURSE ECG ORDERABLES Performing Organization Address City/State/ZIP Code Phon e Number MUSE SYSTEM Acute Tick Borne Infection Panel (12/08/2021 4:57 PM EDT) [facility] Method Time Signature Anaplasma Not Not ISHAN phagocytophilum Detected Detected [facility] LABORATORY Comment: INTERPRETATION: A positive result indica jam DNA was detected from Anaplasma phagocytophilum. A negative result indic ates the absence of any detectable DNA from Anaplasma phagocytophilum. METHODS: This test was performed using SIPX real-time PCR to interrogate DNA isolated from [...] be considered. This test detects DNA sequen kymberyl and cannot discriminate between live and organisms. This test was developed and its performa nce characteristics determined by the Clinical Genomics and Advanced Technolog y (CGAT) Laboratory at [facility]. It has not been cleared or approved by the FDA. The laboratory is regulated under CLIA as qualified to perform high-complexity jam ting. This test is used for clinical purposes. It should not be regarded as i nvestigational or for research. Ehrlichia chaffeensis PCR Not Detected Not Detected [facility] LABORATORY Comment: INTERPRETATION: A positive result [...] performa nce characteristics determined by the Clinical Insight Direct (ServiceCEO) and eyefactive Technolog y (SwiftoT) Laboratory at [facility]. It has not been cleared or approved by the FDA. The laboratory is regulated under CLIA as qualified to perform high-complexity jam ting. This test is used for clinical purposes. It should not be regarded as i nvestigational or for research. Babesia microti PCR Not Detected Not Detected [facility] LABORATORY Comment: INTERPRETATION: A positive result [...] performa nce characteristics determined by the Clinical Insight Direct (ServiceCEO) and Advanced Technolog y (CGAT) Laboratory at [facility]. It has not been cleared or approved by the FDA. The laboratory is regulated under CLIA as qualified to perform high-complexity jam ting. This test is used for clinical purposes. It should not be regarded as i nvestigational or for research. Borrelia miyamotoi PCR Not Detected Not Detected M GAETANO [facility] LABORATORY Comment: INTERPRETATION: A positive result indica jam DNA was detected from Borrelia miyamotoi. A negative result indicates t he absence of any detectable DNA from Borrelia miyamotoi. METHODS: This test was performed using m Clothes Horselex real-time PCR to interrogate DNA isolated from [...] and Advanced Technolog y (CGAT) Laboratory at [facility]. It has not been cleared or approved [...] Resulting Agency Comment Spec In Lab Aye Richards MD HEMATOLOGY ORDERABLES Performing Organization Address City/State/ZIP [place] [address] (ABNORMAL) Phosphorus (12/08/2021 4:57 PM EDT) athologist Signature Phosphorus 1.2 2.5 - 4.5 [facility] (Critical) mg/dL [facility]ATORY Comment: called by RUTHY/read back by Maria Eugenia Austin/ 12/08/21 17:52 Specimen Anatomical Collection Method Collection Time Receive d Time (Source) Location / / Volume Laterality Blood Venous Draw / 12/08/2021 4:57 PM 12/09/19 22 5:06 Unknown EDT PM EDT Resulting Agency Comment Spec In Lab Adrian Bacaicoa X, PROGRESSIVE CARE UNIT REGISTERED NURSE CHEMISTRY ORDERABLES Performing Organization Address [facility] Phon e Number [address] Hepatic Function Panel (12/08/2021 4:57 PM EDT) athologist Signature Total Protein 6.8 6.1 - 8.0 [facility] JOEL g/dL [facility]OR[facility]ORY Albumin 3.9 3.2 - 5.2 [facility] JOEL g/dL [facility] LABORATORY AST 23 0 - 39 [facility] JOEL unit/L [facility] ALT 25 0 - 55 [facility] JOEL unit/L [facility] LABORATORY Alk Phos 94 40 - 130 [facility] JOEL unit/L [facility] LABORATORY Total 0.2 0.2 - 1.3 [facility] Bilirubin mg/dL [facility] LABORATORY Bili, Direct 0.1 0.0 - 0.3 [facility] JOEL mg/dL [facility] LABORATORY Specimen Anatomical Collection Method Collection Time Receive d Time (Source) Location / / Volume Laterality Blood Venous Draw / 12/08/2021 4:57 PM 12/09/19 22 5:06 Unknown EDT PM EDT Resulting Agency Comment Spec In Lab Adrian Bacaicoa X, PROGRESSIVE CARE UNIT REGISTERED NURSE CHEMISTRY ORDERABLES Performing Organization Address City/[facility]/ZIP Code Phon e Number [address] Salicylate (12/08/2021 4:57 PM EDT) P athologist Signature Salicylate Lvl 4 mg/L [facility] LABORATORY Comment: Therapeutic Range: ??< 200 [...] Comment Spec In Lab Adrian Bacaicoa X, PROGRESSIVE CARE UNIT REGISTERED NURSE CHEMISTRY ORDERABLES Performing Organization Address City/[facility] [place] [address] (ABNORMAL) Acetaminophen level (12/08/2021 4:57 PM EDT) athologist Signature Acetamin Lvl <5 (L) 10 - 30 [facility]/L [facility] Comment: Levels >150 mg/L at 4 [...] Comment Spec In Lab Adrian Bacaicoa X, PROGRESSIVE CARE UNIT REGISTERED NURSE CHEMISTRY ORDERABLES Performing Organization Address [facility] [place] [address] Magnesium (12/08/2021 4:57 PM EDT) athologist Signature Magnesium 0.79 0.69 - 1.07 [facility] mmol/L [facility] LABORATORY Specimen Anatomical Collection Method Collection Time Receive d Time (Source) Location / / Volume Laterality Blood Venous Draw / 12/08/2021 4:57 PM 12/09/19 22 5:06 Unknown EDT PM EDT Resulting Agency Comment Spec In Lab Adrian Bacaicoa X, PROGRESSIVE CARE UNIT REGISTERED NURSE CHEMISTRY ORDERABLES Performing Organization Address City/[facility] [place] [address] Troponin (12/08/2021 4:57 PM EDT) athologist Signature Troponin-T <0.01 0.00 - 0.00 [facility] Comment: The 99th percentile for Troponin T is le ss than 0.01 ng/mL, any detectable cTnT concentration using this assay should be considered elevated. According to the third universal definit ion of myocardial infarction the following criteria with a clinical prese ntation consistent with acute myocardial ischemia meets the diagnosis for a myocardial infarction (PA). Detection of a rise and/or fall of [...] additional sample may be indicated. Reference: Third [place] Definition of Myocardial Infarction. Journal of the [place] [employer] 2012;60:1581-98 Specimen Anatomical Collection Method Collection Time Receive d Time (Source) Location / / Volume Laterality Blood Venous Draw / 12/08/2021 4:57 PM 12/09/19 22 5:06 Unknown EDT PM EDT Resulting Agency Comment Spec In Lab Adrian Garnercoa X, PROGRESSIVE CARE UNIT REGISTERED NURSE CHEMISTRY ORDERABLES Performing Organization Address City/State/ZIP [place] [address] Lipase (12/08/2021 4:57 PM EDT) athologist Signature Lipase 47 0 - 60 [facility] unit/L [facility] LABORATORY Specimen Anatomical Collection Method Collection Time Receive d Time (Source) Location / / Volume Laterality Blood Venous Draw / 12/08/2021 4:57 PM 12/09/19 22 5:06 Unknown EDT PM EDT Resulting Agency Comment Spec In Lab Adrian Bacaicoa X, PROGRESSIVE CARE UNIT REGISTERED NURSE CHEMISTRY ORDERABLES Performing Organization Address City/[facility]/ZIP Code Phon e Number [address] (ABNORMAL) Differential, Automated (12/08/2021 4:57 PM EDT) [facility] Method Time Signature Neutrophils % 69.7 % [facility] LABORATORY Neutr Abs (ANC) 7.71 (H) 1.70 - [facility] 6.10 [facility] x10(3)/[facility] LABORATORY Lymphocytes % 18.9 % [facility] LABORATORY Lymphocytes Abs 2.1 0.9 - 3.2 [facility] x10(3)/[facility] LABORATORY Monocytes % 7.7 % [facility] LABORATORY Monocyte Abs 0.8 0.3 - 0.9 [facility] x10(3)/[facility] LABORATORY Eosinophils % 2.6 % [facility] LABORATORY Eosinophils Abs 0.3 0.0 - 0.4 [facility] x10(3)/[facility] LABORATORY Basophils % 0.2 % [facility] LABORATORY Basophils Abs 0.0 0.0 - 0.1 [facility] x10(3)/[facility] LABORATORY Immature Gran % 0.90 % [facility] LABORATORY Comment: Immature granulocytes(IG's)percentage an d absolute count will include metamyelocytes, myelocytes, and promyelo cytes. Blood smears from CBCs yielding IG's will be scanned manually for concor dance. If this scan disagrees with the automated IG or if promyelocytes are not ed, a manual differential will be performed. Nasreen Gran Abs 0.10 (H) 0.00 - 0.04 x10(3)/[facility] LABORATORY Specimen Anatomical Collection Method Collection Time Receive d Time (Source) Location / / Volume Laterality Blood 12/08/2021 4:57 PM 5:01 EDT PM EDT Resulting Agency Comment Spec In Lab Kei LOPEZ HEMATOLOGY ORDERABLES Performing Organization Address City/[facility]/ZIP Code Phon e Number [address] (ABNORMAL) Hemogram (12/08/2021 4:57 PM EDT) Analysis Performed At Patho logist Time Signature WBC 11.1 (H) 4.0 - 9.5 [facility] LABORATORY RBC 5.16 4.58 - ISHAN JOEL 5.54 [facility] x10(6)/[facility] LABORATORY Hemoglobin 15.6 13.7 - [facility] g/dL [facility] LABORATORY Hematocrit 46.5 40.5 - [facility] LABORATORY MCV 90.1 82.9 - [facility]1 [facility] LABORATORY MCH 30.2 27.5 - [facility] 32.1 pg [facility] LABORATORY MCHC 33.5 32.0 - [facility] 35.7 g/dL [facility] LABORATORY Platelets 417 (H) 145 - 357 [facility] x10(3)/[facility] LABORATORY RDWSD 44.8 36.0 - [facility]0 [facility] LABORATORY RDWCV 13.5 11.4 - [facility] JOEL 13.8 % [facility] LABORATORY MPV 10.5 7.6 - 12.9 [facility] nRBC % Auto 0.0 % [facility] LABORATORY nRBC Abs Auto 0.000 0.000 - [facility] x10(3)/[facility] LABORATORY Specimen Anatomical Collection Method Collection Time Receive d Time (Source) Location / / Volume Laterality Blood 12/08/2021 4:57 PM 5:01 EDT PM EDT Resulting Agency Comment Spec In Lab Kei LOPEZ HEMATOLOGY ORDERABLES Performing Organization Address City/State/[place] [address] (ABNORMAL) Basic Metabolic Panel (non-fasting) (12/08/2021 4:57 PM EDT) P athologist Signature Glucose Lvl 102 65 - 199 [facility] mg/dL [facility] LABORATORY Comment: Diabetes: >=200 mg/dL plus symp toms BUN 7 (L) 10 - 20 mg/dL [facility] LABORATORY Creatinine 1.11 0.80 - 1.50 mg/dL [facility] LABORATORY Sodium 140 135 - 145 mmol/L [facility] LABORATORY Potassium 4.0 3.5 - 5.0 mmol/L [facility] LABORATORY Comment: Please note: ??Patients with WBC >100,00 0 may have falsely elevated Potassium levels. ??For accurate Potassium quantif ication in these patients send serum separator tube (gold top) for subsequent determinations. ??Contact the Clinical Chemistry Laboratory if there are any qu estions. Chloride 107 98 - 107 mmol/L [facility] LABORATORY CO2 21 (L) 22 - 31 mmol/L [facility] LABORATORY Anion Gap 12 5 - 15 mmol/L [facility] LABORATORY Calcium 9.8 8.5 - 10.5 mg/dL [facility] LABORATORY Estimated GFR 71 >=60 mL/min/1.73 m?? [facility] LABORATORY Comment: This patient's estimated GFR [...] Location / / Volume Laterality Blood 12/08/2021 4:57 PM 2 5:01 EDT PM EDT Resulting Agency Comment Spec In Lab Zelalem Flores MD CHEMISTRY ORDERABLES Performing Organization Address City/State/ZIP [place] [address] XR Ankle Min 3 [...] who have questions please contact the health child care assistant that requested your imaging first. ? Electronically signed by: Aye Serra MD , [facility] ([phone]), at 12/08/2021 5:05 PM Narrative 12/08/2021 5:05 PM EDT EXAMINATION: XR [...] ho have questions please contact the health child care assistant that requested your imaging first. Electronically signed by: Aye Serra MD , [facility] ([phone]), at 12/08/2021 5:05 PM Zelalem Flores MD IMG DX ORDERABLES Film Library- Storage Only CT Head (12/02/2021 12:05 AM EDT) Specimen (Source) Anatomical Location Collection Method / Collectio n Time Received Time / Laterality Volume Narrative Dicom, Auditing User - 12/08/2021 8:33 P M EDT This exam is auto-finalizing. It's purpo se is for storage only. Misael Kumari MD [facility] FILM LIBRARY ORDERABLES Film Library- Storage Only DX Chest (12/02/2021 12:00 AM EDT) Specimen (Source) Anatomical Location Collection Method / Collectio n Time Received Time / Laterality Volume Narrative Dicom, Auditing User - 12/08/2021 8:29 P M EDT This exam is auto-finalizing. It's purpo se is for storage only. Misael Kumari MD [facility] FILM LIBRARY ORDERABLES Film Library- Storage Only DX Chest (11/29/2021 12:00 AM EDT) Specimen (Source) Anatomical Location Collection Method / Collectio n Time Received Time / Laterality Volume Narrative Dicom, Auditing User - 12/08/2021 8:28 P M EDT This exam is auto-finalizing. It's purpo se is for storage only. Misael Kumari MD [facility] FILM LIBRARY ORDERABLES Film Library- Storage Only DX Chest (11/23/2021 12:05 AM EDT) Specimen (Source) Anatomical Location Collection Method / Collectio n Time Received Time / Laterality Volume Narrative Dicom, Auditing User - 12/08/2021 8:28 P M EDT This exam is auto-finalizing. It's purpo se is for storage only. Misael Kumari MD [facility] FILM LIBRARY ORDERABLES Film Library- Storage Only CT Head (11/23/2021 12:00 AM EDT) Specimen (Source) Anatomical Location Collection Method / Collectio n Time Received Time / Laterality Volume Narrative Dicom, Auditing User - 12/08/2021 8:28 P M EDT This exam is auto-finalizing. It's purpo se is for storage only. Misael Kumari MD [facility] FILM LIBRARY ORDERABLES documented in this encounter Visit Diagnoses Diagnosis Catatonia - Primary Other symptoms involving nervous and mus culoskeletal systems Change in behavior Unspecified disturbance of conduct Self-care deficit Hypophosphatemia Disorders of phosphorus metabolism documented in this encounter Admitting Diagnoses Diagnosis Catatonia Other symptoms involving nervous and mus culoskeletal systems documented in this encounter Administered Medications Inactive Administered Medications - up to 3 most recent administrations Medication Order MAR Action Action Date Dose Rate Site acetaminophen (Tylenol) tablet 650 Given 12/14/2021 9:40 PM EDT 650 mg mg 650 mg, Oral, EVERY 6 HOURS PRN, Starting on Wed12/09/21 at 0918, Until Wed12/19/21 at 1618, Pain, Fever, Administer for temperature greater than or equal to 38.2 degrees celsius. Maximum daily dose of acetaminophen from all sources not to exceed 4,000 mg. When ordered for pain, acetaminophen should be given even when other ordered pain medications are indicated., Routine Given 12/09/2021 9:28 PM EDT 325 mg albuteroL (Proventil) nebulizer solution 2.5 Given 11/2021 8:43 PM EDT 2.5 mg mg 2.5 mg, Nebulization, EVERY 6 HOURS PRN, Starting on Porsha 12/11/21 at 0952, Until Wed12/19/21 at 1618, Wheezing, Shortness of Breath, Routine Given 12/11/2021 10:49 AM EDT 2.5 mg aspirin chewable tablet 81 mg Given 12/19/2021 8:48 AM EDT 81 mg 81 mg, Oral, DAILY, First dose on Wed12/09/21 at 1015, Until Discontinued, Routine Given 12/18/2021 8:28 AM EDT 81 mg Given 12/17/2021 8:39 AM EDT 81 mg buPROPion SR (Wellbutrin SR) tablet 100 mg Given 12/19/2021 8:47 AM EDT 100 mg 100 mg, Oral, 2 TIMES DAILY, First dose on Wed12/09/21 at 1015, Until Discontinued, DO NOT CRUSH OR OPEN, Routine Given 12/18/2021 8:06 PM EDT 100 mg Given 12/18/2021 8:29 AM EDT 100 mg carboxymethylcellulose (Refresh Plus) 0.5 % Given 12/18/2021 4:53 PM EDT 1 drop ophthalmic drops 1 drop 1 drop, Both Eyes, 3 TIMES DAILY PRN, Starting on Wed12/18/21 at 1427, Until Wed12/19/21 at 1618, Dry Eyes, Routine dextrose 5% 500 mL IV bolus New Bag 12/10/2021 12:07 PM EDT 250 mL/hr at 250 mL/hr, Intravenous, ONCE, 1 dose, On Wed12/10/21 at 1100 enoxaparin (Lovenox) (40 mg/0.4 mL) Given 12/18/2021 8:06 PM EDT 40 mg subcutaneous injection 40 mg 40 mg, Subcutaneous, NIGHTLY, First dose on Wed12/09/21 at 2100, Until Discontinued, Routine Given 12/17/2021 8:09 PM EDT 40 mg Given 12/16/2021 9:01 PM EDT 40 mg fluticasone propionate (Flonase) 50 Given 12/19/2021 8:47 AM EDT 2 sprays mcg/actuation nasal spray 2 spray 2 spray, Each Nare, DAILY, First dose on Wed12/14/21 at 1015, Until Discontinued, Routine Given 12/18/2021 8:28 AM EDT 2 sprays Given 12/17/2021 8:38 AM EDT 2 sprays lactated ringers infusion New Bag 12/12/2021 6:12 AM EDT 1,000 mLs 100 mL/hr 1,000 mL, at 100 mL/hr, Intravenous, CONTINUOUS, Starting on Wed12/09/21 at 1015, Until Wed12/12/21 at 1147 New Bag 12/11/2021 8:04 PM EDT 1,000 mLs 100 mL/hr New Bag 12/11/2021 10:04 AM EDT 1,000 mLs 100 mL/hr LORazepam (Ativan) tablet 1 mg Given 12/17/2021 11:21 AM EDT 1 mg 1 mg, Oral, 3 TIMES DAILY, First dose on Wed12/11/21 at 1500, Until Discontinued, Routine Given 12/16/2021 5:01 PM EDT 1 mg Given 12/16/2021 8:32 AM EDT 1 mg LORazepam (Ativan) tablet 1 mg 1 mg, Oral, DAILY PRN, Starting on Wed at 1337, Until Wed12/19/21 at 1618, Anxiety, Routine LORazepam (Ativan) tablet 1 mg Given 12/19/2021 2:46 PM EDT 1 mg 1 mg, Oral, 3 TIMES DAILY, First dose on Wed12/17/21 at 1500, Until Discontinued, Routine Given 12/19/2021 8:48 AM EDT 1 mg Given 12/18/2021 8:06 PM EDT 1 mg LORazepam (Ativan) tablet 3 mg Given 12/10/2021 5:48 PM EDT 3 mg 3 mg, Oral, ONCE PRN, 1 dose, Starting on Wed12/10/21 at 1513, Until Wed12/10/21 at 1748, imaging, Give 15-30 minutes prior to transport for MRI, Routine melatonin tablet 3 mg Given 12/18/2021 8:06 PM EDT 3 mg 3 mg, Oral, NIGHTLY, First dose on Wed12/09/21 at 2100, Until Discontinued, Routine Given 12/17/2021 8:10 PM EDT 3 mg Given 12/16/2021 9:02 PM EDT 3 mg midazolam (pf) (Versed) (1 mg/mL) injection 2 Given 12/12/19 8:49 AM EDT 2 mg mg 2 mg, Intravenous, 3 TIMES DAILY, First dose on Wed12/09/21 at 0900, Until Discontinued, If medication ordered subcutaneously, do not administer more than 2 mL as a single injection., Routine Given 12/10/2021 9:47 PM EDT 2 mg Given 12/10/2021 3:07 PM EDT 2 mg midazolam (pf) (Versed) (1 mg/mL) inject ion 2 mg 2 mg, Intravenous, 3 TIMES DAILY, First dose on Wed at 1500, Until Discontinued, If medication ordered subc utaneously, do not administer more than 2 mL as a single injection., Routine midazolam (pf) (Versed) (1 mg/mL) injection 4 Given 12/11/19 3:59 AM EDT 4 mg mg 4 mg, Intravenous, ONCE, 1 dose, On Wed12/10/21 at 0430, If medication ordered subcutaneously, do not administer more than 2 mL as a single injection., Routine midazolam (pf) (Versed) (5 mg/mL) injection 4 Given 12:49 AM EDT 4 mg mg 4 mg, Intravenous, ONCE, 1 dose, On Wed12/09/21 at 0038, If medication ordered subcutaneously, do not administer more than 2 mL as a single injection., STAT midazolam (pf) (Versed) (5 mg/mL) injection 4 Given 12/10/19 4:42 AM EDT 4 mg mg 4 mg, Intravenous, ONCE, 1 dose, On Wed12/09/21 at 0442, If medication ordered subcutaneously, do not administer more than 2 mL as a single injection., STAT midazolam (pf) (Versed) (5 mg/mL) injection 4 Given 12/10/19 6:32 AM EDT 4 mg mg 4 mg, Intravenous, ONCE, 1 dose, On Wed12/09/21 at 0623, If medication ordered subcutaneously, do not administer more than 2 mL as a single injection., STAT mirtazapine (Remeron) tablet 45 mg Given 12/18/2021 8:06 PM EDT 45 mg 45 mg, Oral, NIGHTLY, First dose on Wed12/09/21 at 2100, Until Discontinued, Routine Given 12/17/2021 8:13 PM EDT 45 mg Given 12/16/2021 9:03 PM EDT 45 mg OLANZapine (ZyPREXA) tablet 2.5 mg Given 12/17/2021 8:10 PM EDT 2.5 mg 2.5 mg, Oral, NIGHTLY, First dose on Wed12/15/21 at 2100, Until Discontinued, Routine Given 12/16/2021 9:02 PM EDT 2.5 mg Given 12/15/2021 8:33 PM EDT 2.5 mg OLANZapine (ZyPREXA) tablet 5 mg Given 12/18/2021 8:06 PM EDT 5 mg 5 mg, Oral, NIGHTLY, First dose (after last modification) on Porsha 12/18/21 at 2100, Until Discontinued, Routine potassium phosphate 15 mMol in New Bag 12/09/2021 8:52 PM EDT 15 mmol 62.5 mL/hr sodium chloride 0.9% 250 mL infusion 15 mmol, Intravenous, EVERY 6 HOURS, 2 doses, First dose on Wed12/09/21 at 1445, Last dose on Wed12/09/21 at 2045, Administer over 4 Hours, Administer over 4-6 hours New Bag 12/09/2021 2:52 PM EDT 15 mmol 62.5 mL/hr potassium, sodium phosphates (Neutra-Phos) Given 12/09/2021 10:1 5 AM EDT 1.5 g 280-160-250 mg oral packet 1.5 g 1.5 g, Oral, 3 TIMES DAILY WITH MEALS, First dose on Wed12/08/21 at 1930, Until Discontinued, Reconstitute powder with 75 mL of water. Give 1 packet with full glass of water (240 mL). , Routine Given 12/08/2021 8:37 PM EDT 1.5 g simethicone (Mylicon) 80 mg chewable tablet 80 Given 0 12/19/2021 5:04 AM EDT 80 mg mg 80 mg, Oral, ONCE, 1 dose, On Wed12/19/21 at 0430, Routine sodium chloride (Benavides) 0.65 % nasal spray 1 Given 01/2022 8:54 AM EDT 1 spray spray 1 spray, Each Nare, 2 TIMES DAILY PRN, Starting on Wed12/12/21 at 1659, Until Wed12/13/21 at 0914, Congestion, Routine Given 12/12/2021 5:31 PM EDT 1 spray sodium chloride (Benavides) 0.65 % nasal spray Given 12/19 8:50 AM EDT 2 sprays 2 spray 2 spray, Each Nare, 2 Times Daily, First dose (after last modification) on Wed12/13/21 at 2100, Until Discontinued, Routine Given 12/18/2021 8:05 PM EDT 2 sprays Given 12/18/2021 8:29 AM EDT 2 sprays sodium chloride 0.9 % (flush) (BD PosiFlush Given 12/19/2021 8:5 4 AM EDT 5 mLs Normal Saline 0.9) flush 5 mL 5 mL, Intravenous, 2 TIMES DAILY, First dose on Wed12/09/21 at 1015, Until Discontinued, Routine Given 12/18/2021 8:06 PM EDT 5 mLs Given 12/18/2021 8:29 AM EDT 5 mLs sodium chloride 0.9 % (flush) (BD PosiFlush Given 12/19/2021 8:5 3 AM EDT 5 mLs Normal Saline 0.9) flush 5-20 mL 5-20 mL, Intravenous, EVERY 1 MIN PRN, Starting on Wed12/09/21 at 0918, Until Wed12/19/21 at 1618, flush, Flush pertains to all indwelling lines. Flush per protocol found in the job aid using the link provided on this medication record., Routine tamsulosin (Flomax) capsule 0.4 mg Given 12/18/2021 8:06 PM EDT 0.4 mg 0.4 mg, Oral, NIGHTLY, First dose on Wed12/09/21 at 2100, Until Discontinued, DO NOT CRUSH OR OPEN, Routine Given 12/17/2021 8:09 PM EDT 0.4 mg Given 12/16/2021 9:02 PM EDT 0.4 mg thiamine (Vitamin B1) tablet 100 mg Given 12/19/2021 8:48 AM EDT 100 mg 100 mg, Oral, DAILY, First dose on Wed12/09/21 at 1015, Until Discontinued, Routine Given 12/18/2021 8:28 AM EDT 100 mg Given 12/17/2021 8:39 AM EDT 100 mg documented in this encounter Active and Recently Administered Medications Times are shown in EDT. Scheduled Medication Order 12/17/2021 12/18/2021 12/19/2021 aspirin chewable tablet 81 mg 0839 (Given - Provider: Linnette Altamirano RN) 0828 (Given - Provider: Linnette Altamirano RN) 0848 (Given - Provider: Natasha Bui, IBAN) 81 mg, Oral, DAILY, First dose on 09/24 at 1015, Until Discontinued, Routine buPROPion SR (Wellbutrin SR) tablet 100 mg 0839 (Given - Provider: Linnette Altamirano RN)2008 (Given - Provider: Radha Shankar RN) 08 (Given - Provider: Linnette Altamirano RN)2005 (Given - Provider: Radha Shankar RN) 0847 (Given - Provider: Natasha mcarthur, IBAN) 100 mg, Oral, 2 TIMES DAILY, First dose on Wed12/09/21 at 1015, Until Discontinued, DO NOT CRUSH OR OPEN, Routine enoxaparin (Lovenox) (40 mg/0.4 mL) subcutaneous injec tion 40 mg 2008 (Given - Provider: Radha Shankar RN) 2005 (Given - Provider: Radha Shankar RN) 40 mg, Subcutaneous, NIGHTLY, First dose on Wed12/09/21 at 2100, Until Discontinued, Routine fluticasone propionate (Flonase) 50 mcg/actuation nasa l spray 2 spray 0838 (Given - Provider: Linnette Altamirano RN) 08 (Given - Provider: Linnette Altamirano RN) 0847 (Given - Provider: Natasha mcarthur RN) 2 spray, Each Nare, DAILY, First dose on Wed12/14/21 at 1015, Until Discontinued, Routine LORazepam (Ativan) tablet 1 mg (CANCELED) 0839 (Not Gi corey - Provider: Linnette Altamirano RN - Reason: Patient/family refused)1121 (Given - Provider: Linnette Altamirano, IBAN) 1 mg, Oral, 3 TIMES DAILY, First dose on Wed12/11/21 at 1500, Until Discontinued, Routine LORazepam (Ativan) tablet 1 mg(Linked Group 1) 1525 (G iven - Provider: Linnette Altamirano RN)2009 (Given - Provider: Radha Shankar RN) 08 (Given - Provider: Linnette Altamirano RN)1515 (Given - Provider: Linnette Altamirano RN)2005 (Given - Provider: Radha Shankar RN) 0848 (Given - Provider: Natasha Bui RN)1446 (Given - Provider: Natasha Bui RN) 1 mg, Oral, 3 TIMES DAILY, First dose on Wed12/17/21 at 1500, Until Discontinued, Routine melatonin tablet 3 mg 2009 (Given - Provider: Radha light RN) 2005 (Given - Provider: Radha Shankar RN) 3 mg, Oral, NIGHTLY, First dose on Wed at 2100, Until Discontinued, Routine midazolam (pf) (Versed) (1 mg/mL) injection 2 mg(Linke d Group 1) 1525 (See Alternative - Provider: Linnette Altamirano RN)2009 (See Alternative - Provider: Radha Shankar RN) 0828 (See Alternative - Provider: Linnette Altamirano RN)1515 (See Alternative - Provider: Linnette Altamirano RN)2005 (See Alternative - Provider: Radha Shankar RN) 0848 (See Alternative - Provider: Viktoriya Bui RN)1446 (See Alternative - Provider: Natasha Bui RN) 2 mg, Intravenous, 3 TIMES DAILY, First dose on Wed12/17/21 at 1500, Until Discontinued, If medication ordered subcutaneously, do not administer more than 2 mL as a single injection., Routine mirtazapine (Remeron) tablet 45 mg 2012 (Given - Provi randy: Radha Shankar RN) 2005 (Given - Provider: Radha Shankar RN) 45 mg, Oral, NIGHTLY, First dose on Wed12/09/21 at 2100, Until Discontinued, Routine OLANZapine (ZyPREXA) tablet 2.5 mg (CANCELED) 2009 (Gi corey - Provider: Radha Shankar RN) 2.5 mg, Oral, NIGHTLY, First dose on Wed12/15/21 at 2100, Until Discontinued, Routine OLANZapine (ZyPREXA) tablet 5 mg 2005 (G iven - Provider: Radha Shankar RN) 5 mg, Oral, NIGHTLY, First dose (after l ast modification) on Wed12/18/21 at 2100, Until Discontinued, Routine simethicone (Mylicon) 80 mg chewable tablet 80 mg (COMPLETED) 0504 (Given - Provider: Radha Shankar RN) 80 mg, Oral, ONCE, 1 dose, On Wed12/19/21 at 0430, Routine sodium chloride (Benavides) 0.65 % nasal spray 2 spray 083 8 (Given - Provider: Linnette Altamirano RN)2012 (Given - Provider: Radha Shankar RN) 0829 (Given - Provider: Linnette Altamirano RN)2004 (Given - Provider: Radha Shankar RN) 0850 (Given - Provider: Natasha mcarthur RN) 2 spray, Each Nare, 2 Times Daily, First dose (after last modification) on Wed12/13/21 at 2100, Until Discontinued, Routine sodium chloride 0.9 % (flush) (BD PosiFlush Normal Salvatore ine 0.9) flush 5 mL 0900 (Not Given - Provider: Linnette Altamirano RN - Reason: See comment)2009 (Given - Provider: Radha Shankar RN) 0829 (Given - Provider: Linnette Altamirano RN)2005 (Given - Provider: Radha Shankar RN) 0854 (Given - Provider: Natasha Bui, IBAN) 5 mL, Intravenous, 2 TIMES DAILY, First dose on Wed12/09/21 at 1015, Until Discontinued, Routine tamsulosin (Flomax) capsule 0.4 mg 2008 (Given - Provi randy: Radha Shankar RN) 2005 (Given - Provider: Radha Shankar RN) 0.4 mg, Oral, NIGHTLY, First dose on Wed12/09/21 at 2100, Until Discontinued, DO NOT CRUSH OR OPEN, Routine thiamine (Vitamin B1) tablet 100 mg 0839 (Given - Prov ider: Linnette Altamirano RN) 0828 (Given - Provider: Linnette Altamirano RN) 0848 (Gi corey - Provider: Natasha Bui, IBAN) 100 mg, Oral, DAILY, First dose on Wed at 1015, Until Discontinued, Routine PRN Medication Order 12/17/2021 12/18/2021 12/19/2021 acetaminophen (Tylenol) tablet 650 mg 650 mg, Oral, EVERY 6 HOURS PRN, Startin g on Wed12/09/21 at 0918, Until Wed12/19/21 at 1618, Pain, Fever, Administer for temperature greater than or equal to 38.2 degrees celsius. Maximum daily dose of a cetaminophen from all sources not to exc eed 4,000 mg. When ordered for pain, acetaminophen should be given even when other ordered pain medications are indicated., Routine albuteroL (Proventil) nebulizer solution 2.5 mg 2.5 mg, Nebulization, EVERY 6 HOURS PRN, Starting on Wed12/11/21 at 0952, Until Wed12/19/21 at 1618, Wheezing, Shortness of Breath, Routine carboxymethylcellulose (Refresh Plus) 0.5 % ophthalmic drops 1 drop 1653 (Given - Provider: Linnette Altamirano RN) 1 drop, Both Eyes, 3 TIMES DAILY PRN, St arting on Wed12/18/21 at 1427, Until Wed12/19/21 at 1618, Dry Eyes, Routine lidocaine (Xylocaine) 1% (10 mg/mL) injection 3 mg 3 mg (0.3 mL), Subcutaneous, ONCE PRN, 1 dose, Starting on Wed12/09/21 at 0918, Until Wed12/19/21 at 1618, for discomfort with PIV insertion, Routine LORazepam (Ativan) tablet 1 mg 1 mg, Oral, DAILY PRN, Starting on Sat at 1337, Until Wed12/19/21 at 1618, Anxiety, Routine polyethylene glycoL (Miralax) packet 17 g 17 g, Oral, DAILY PRN, Starting on Wed at 0918, Until Wed12/19/21 at 1618, Constipation, Routine senna-docusate (Pericolace) 8.6-50 mg per tablet 1 tablet 1 tablet, Oral, DAILY PRN, Starting on T 12/09/21 at 0918, Until Wed12/19/21 at 1618, Constipation, Routine sodium chloride 0.9 % (flush) (BD PosiFlush Normal Saline 0.9) f lush 5-20 mL 0853 (Given - Provider: Natasha N Sweetman, RN) 5-20 mL, Intravenous, EVERY 1 MIN PRN, S tarting on Wed12/09/21 at 0918, Until Wed12/19/21 at 1618, flush, Flush pertains to all indwelling lines. Flush per protocol found in the job aid using the link provided on this medication record., Routine Linked Groups Order Group 1: LORazepam (Ativan) tablet 1 mgJump to med 1 mg, Oral, 3 TIMES DAILY, First dose on Wed12/17/21 at 1500, Until Discontinued, Routine Or midazolam (pf) (Versed) (1 mg/mL) injection 2 mgJump to med 2 mg, Intravenous, 3 TIMES DAILY, First dose on Wed12/17/21 at 1500, Until Discontinued
If medication ordered subcutaneously, do not administer more than 2 mL as a single injection.
Routine documented in this encounter Care Teams Voice Professor Relationship Specialty Start Date End Date Jose Eduardo Barboza MD PCP - General Family Medicine 02/09/19 [facility] [address] [place] [address] documented as of this encounter
--- OUTSIDE RECORDS SUMMARY | 2022-02-05 14:38 | XMS_ITS | Encounter Summary ---
:1950 Author Organization [facility] [place] [address] Care Team Providers Name Role Phone Jose Eduardo Barboza MD Primary Care Provider [phone] Encounter Details Date Type Department Care Team Description 11/23/2021 Ancillary Procedure [place] [address] Social History Tobacco Use Types Packs/Day Years Used Date Never Assessed Sex Assigned at Date Recorded Not on file documented as of this encounter Plan of Treatment Not on filedocumented as of this encounter Procedures Procedure Name Priority Date/Time Associated Diagnosis Comme nts FILM LIBRARY STAT 11/23/2021 12:05 AM Results for this STORAGE ONLY DX EDT procedure ar e in CHEST the results section. documented in this encounter Results Film Library- Storage Only DX Chest (11/23/2021 [...] on filedocumented in this encounter Care Teams Access Clerk Relationship Specialty Start Date End Date Jose Eduardo Barboza MD PCP - General Family Medicine 02/09/[address] [place] [address] documented as of this encounter
--- OUTSIDE RECORDS SUMMARY | 2022-02-05 14:38 | XMS_ITS | Encounter Summary ---
:1950 [place] [address] Care Team Providers Name Role Phone Jose Eduardo Barboza MD Primary Care Provider [phone] Encounter Details Date Type Department Care Team Description 11/21/2020 Interpretation Only [address] Buster Zabala MD [place], [place] [address] [facility] [id number] [place] [address] [phone] (Wo rk) Social History Tobacco Use Types [...] EDT) P athologist Signature PT CLASS I DH RAD ADMITDTTM DH RAD PT RAD INFO [id number] DH RAD IPULANANDA^N IMALAN EXAM DESC XCXR1^XR DH RAD CHEST 1 VIEW^RIS Anatomical Region Laterality [...] who have questions please contact the health respiratory care program director that requested your imaging first. ? Electronically signed by: Rosi Moody MD, [facility] ([phone]), at 11/22/2020 10:25 AM Narrative 11/22/2020 10:25 AM EDT EXAMINATION: XR [...] ho have questions please contact the health respiratory care program director that requested your imaging first. Electronically signed by: Rosi Moody MD, [facility] ([phone]), at 11/22/2020 10:25 AM Sagrario Garay MD IMG DX ORDERABLES documented in this encounter Visit Diagnoses Not on filedocumented in this encounter Care Teams Services Clerk Relationship Specialty Start Date End Date Jose Eduardo Barboza MD PCP - General Family Medicine 02/09/[address] [place] [address] documented as of this encounter
--- OUTSIDE RECORDS SUMMARY | 2022-02-05 14:38 | XMS_ITS | Encounter Summary ---
:1950 Author Organization [place] [address] Care Team Providers Name Role Phone Jose Eduardo Barboza MD Primary Care Provider [phone] Encounter Details Date Type Department Care Team Description 11/23/2021 Ancillary Procedure [place] [address] Social History Tobacco Use Types Packs/Day Years Used Date Never Assessed Sex Assigned at Date Recorded Not on file documented as of this encounter Plan of Treatment Not on filedocumented as of this encounter Procedures Procedure Name Priority Date/Time Associated Diagnosis Comme nts FILM LIBRARY STAT 11/23/2021 12:00 AM Results for this STORAGE ONLY CT EDT procedure ar e in HEAD the results section. documented in this encounter Results Film Library- Storage Only CT Head (11/23/2021 [...] on filedocumented in this encounter Care Teams Insulator Apprentice Relationship Specialty Start Date End Date Jose Eduardo Barboza MD PCP - General Family Medicine 02/09/[address] [place] [address] documented as of this encounter
--- OUTSIDE RECORDS SUMMARY | 2022-02-05 14:38 | XMS_ITS | Encounter Summary ---
:1950 [place] [address] Care Team Providers Name Role Phone Jose Eduardo Barboza MD Primary Care Provider [phone] Encounter Details Date Type Department Care Team Description 09/13/2021 Interpretation Only [facility] Sascha Lopez, [employer] [address] [place] [phone] (Wo rk) Social History Tobacco Use Types [...] RAD ADMITDTTM DH RAD PT RAD INFO [id number] DH RAD OTE^SASCHA^ J EXAM DESC XCXR1^XR DH RAD CHEST 1 [...] who have questions please contact the health care director that requested your imaging first. ? Electronically signed by: Dayron Bardales, [facility] ([phone]), at 09/13/2021 1:23 PM Narrative 09/13/2021 1:23 PM EDT EXAMINATION: XR [...] ho have questions please contact the health care director that requested your imaging first. Electronically signed by: Dayron Bardales, [facility] ([phone]), at 09/13/2021 1:23 PM Sascha Lopez APRN IMG DX ORDERABLES documented in this encounter Visit Diagnoses Not on filedocumented in this encounter Care Teams Mental Retardation Nurse Relationship Specialty Start Date End Date Jose Eduardo Barboza MD PCP - General Family Medicine 02/09/[address] [place] [address] documented as of this encounter
[2022-02-05 14:39] VITALS: BP 164/79; PULSE 68; RESP 18; O2SAT 98
--- NOTE | 2022-02-05 15:16 | ED.GENADUL_ITS ---
Discharge Plan Disposition Patient Disposition: HOME Condition: Stable Discharge Details Clinical Impression: Visit for suture removal Primary Care Provider: Jose Eduardo Barboza ED Provider: Anastasiya Rodriguez Home Meds and New Rx's Prescriptions: Continued bupropion HCl 100 mg tablet sustained-release 12 hr 200 mg PO BID Qty: 120 2RF folic acid 1 mg tablet 1 mg PO DAILY Qty: 90 3RF albuterol sulfate 90 mcg/actuation aerosol powdr breath activated 2 inh inhalation Q6H PRN olanzapine [Zyprexa] 7.5 mg tablet 7.5 mg PO QHS mirtazapine 15 mg tablet 45 mg PO HS polyethylene glycol 3350 17 gram powder in packet 17 g PO DAILY Label Comments: 17g daily in 8oz fluid sennosides-docusate sodium 8.6-50 mg tablet 2 tab-cap PO BID thiamine HCl (vitamin B1) 100 mg tablet 100 mg PO DAILY tamsulosin 0.4 mg capsule 0.4 mg PO DAILY Qty: 90 3RF melatonin 3 mg Tablet 3 mg PO HS aspirin 81 mg Tablet,Chewable 81 mg PO DAILY Qty: 30 0RF lorazepam [Ativan] 2 mg tablet 2 mg PO BID PRNQty: 30 0RF Discharge Instructions Additional Instructions: Keep clean and dry Return earlier should you have new or worsening complaints Referrals: Jose Eduardo Barboza MD [Primary Care Provider] - Discharge Data Discharge Date/Time-TO BE ENTERED AT DEPARTURE: 02/05/22 15:24 Medical Decision Making Procedures are needed by nursing staff without incident Discharged home in stable condition with stable vital No evidence of secondary infection Medical Records Medical records reviewed: Yes I reviewed the patient's medical records. Lab Data Lab results reviewed: Yes I reviewed the patient's lab results. HPI General Date/Time Provider Initiated Documentation: 02/05/22 15:16 . HPI Narrative: This 71-year-old gentleman presents for suture removal that were placed on 01/29/2022. He denies any symptoms and is otherwise feeling well. Related Data Home Medications Medication Instructions Recorded Confirmed melatonin 3 mg tablet 3 mg PO HS 11/23/20 02/05/22 aspirin 81 mg chewable tablet 81 mg PO DAILY #30 tabs 11/25/20 02/05/22 lorazepam 2 mg tablet (Ativan) 2 mg PO BID PRN #30 tabs 11/25/20 02/05/22 tamsulosin 0.4 mg capsule 0.4 mg PO DAILY #90 caps 08/14/21 02/05/22 mirtazapine 15 mg tablet 45 mg PO HS 10/22/21 02/05/22 polyethylene glycol 3350 17 gram 17 g PO DAILY 10/22/21 02/05/22 oral powder packet sennosides 8.6 mg-docusate sodium 2 tab-cap PO BID 10/22/21 02/05/22 50 mg tablet thiamine HCl (vitamin B1) 100 mg 100 mg PO DAILY 10/22/21 02/05/22 tablet bupropion HCl 100 mg tablet,12 hr 200 mg PO BID #120 tabs 12/04/21 02/05/22 sustained-release folic acid 1 mg tablet 1 mg PO DAILY #90 tabs 12/04/21 02/05/22 albuterol sulfate 90 mcg/actuation 2 inh inhalation Q6H PRN 12/31/21 02/05/22 breath activated powder inhaler olanzapine 7.5 mg tablet (Zyprexa) 7.5 mg PO QHS 12/31/21 02/05/22 Previous Rx's Medication Instructions Recorded aspirin 81 mg chewable tablet 81 mg PO DAILY #30 tabs 11/25/20 lorazepam 2 mg tablet (Ativan) 2 mg PO BID PRN #30 tabs 11/25/20 tamsulosin 0.4 mg capsule 0.4 mg PO DAILY #90 caps 08/14/21 bupropion HCl 100 mg tablet,12 hr 200 mg PO BID #120 tabs 12/04/21 sustained-release folic acid 1 mg tablet 1 mg PO DAILY #90 tabs 12/04/21 Allergies Allergy/AdvReac Type Severity Reaction Status Date / Time bee pollen Allergy Severe swelling Verified 02/05/22 14:42 General Stated Complaint: SutureRem ASLINA: 4 Review of Systems All systems reviewed & are unremarkable except as noted in HPI and below PFSH All Active Problems (Updated 02/05/22 @ 15:19 by JESSICA Ramesh) Head injury (Acute) Facial laceration (Acute) Visit for suture removal (Acute) Cognitive impairment (Acute) Parkinsonian features (Acute) Pneumonia (Acute) Hard of hearing (Chronic) refuses to wear hearing aids Health care proxy on file (Chronic) , Sisi Shepherd daughter, Monica El, back-up DNI (do not intubate) (Acute) DNR (do not resuscitate) (Acute) POLST (Physician Orders for Life-Sustaining Treatment) (Acute) Vaccine counseling (Acute) Dementia (Chronic) Incontinence of bowel (Acute) Incontinence of urine (Acute) Frequent falls (Acute) Carotid stenosis (Acute) Acute kidney injury (Acute) DVT prophylaxis (Acute) Exposure to excessive natural heat (Acute) Atrial flutter by electrocardiogram (Acute) Medically noncompliant (Acute) Confusion (Acute) Taking multiple medications for chronic disease (Acute) Ambulatory dysfunction (Acute) Bipolar disorder (Chronic) diagnosed in 1992 mood swings all his life Leg cramps (Acute) Neural hearing loss, bilateral (Acute) Nasal turbinate hypertrophy (Acute) Congenital nasal septum deviation (Acute) Orthopnea (Acute) Breathlessness (Acute) Low back pain (Acute) Sleep disorder (Acute) Nasal obstruction (Acute) Diverticula of colon (Acute) Tremor (Acute 06/14/17) Paralysis agitans (Acute) Lynn (Acute 01/06/17) Bipolar 1 disorder (Chronic 07/29/15) Persistent mood disorder (Chronic) a lot of contributing stressors Essential hypertension (Chronic) Medical History (Updated 02/05/22 @ 15:19 by JESSICA Ramesh) Bipolar disorder, current episode manic severe with psychotic features Hyperlipidemia, unspecified Palliative care patient Surgical History History of colonoscopy History of orchiectomy, unilateral left Family History Mother , 73 of her chronic lung disease Depression Asthma Bipolar 1 disorder Chronic lung disease Father , age 61 from heart failure Kidney malignancy Heart disease Hyperlipidemia Hypertension Sister No problems noted. Sister No problems noted. Sister Heart disease Hyperlipidemia Hypertension Sister No problems noted. Sister No problems noted. Brother Heart disease Brother , age 48 fro Sudden Cardiac Heart disease Hyperlipidemia Hypertension Maternal Grandfather , 64 Heart disease Hyperlipidemia Hypertension Paternal Grandfather , 56 Heart disease Hyperlipidemia Hypertension Maternal Grandmother , 70 Asthma Stroke Paternal Grandmother , 80 No problems noted. Son No problems noted. Daughter No problems noted. Social History Smoking/Tobacco Use Status: Former Tobacco Use Quit Date: 08/03/18 Quit status: has quit before Smoking risk assessment performed?: Yes Alcohol Intake: never Drug use: Never Substance use type: does not use Caregiver/Support person: Yes () Household members: spouse Housing: other Details: camper when in [place]; friend's trailer in [facility] Number of Children: 2 number of grandchildren: 5 Communication Needs: Corrective Lenses Education Level: high school Do you need help understanding health information?: Always current occupation: retired from [employer] Pets and animals: Yes Pets and animals: dog(s) Sexually active: Yes Do you think of yourself as: straight/heterosexual Current gender identity: male What is your relationship status?: How often do you talk on the phone with friends or family?: once per week How often do you get together with friends or relatives?: twice per week How often do you attend restoration or adventist services?: 4 or more times per year Do you belong to any clubs or organized social groups?: no Panel score (0-1 are the most socially isolated patients): 3 What type of physical activity do you participate in: walking Duration: 15-30 minutes/day Frequency: does not exercise Eloisa/Evangelical: Pentecostal Special eloisa needs: No Agree to transfusion: No Seatbelt use: always Working smoke detector in home: Yes Fire extinguisher in home: Yes Do you feel safe at home: Yes Do you feel safe in your relationship?: Yes Additional Social history: is his caregiver. They live in a camper during the summer at [facility] and stay for free at a friend's trailer in [facility] during the winter. Met at daughter's house in [facility] where they frequently go for meals, socializing, etc. He has hearing aids he refuses to wear. Neither Sebas nor vaccinated against COVID 19. Limits ability to go to [facility] or be considered for placement at community care homes. No savings to pay for LTC. Not on Choices for care yet. Discussed planning. Filled out COLST and health care agent paperwork. Exam Const General: cooperative, comfortable and no acute distress [facility] Head images: 1. Well-healing and approximated laceration site Course Vital Signs Vital signs: Vital Signs Pulse 68 02/05/22 14:39 Respiratory Rate 18 02/05/22 14:39 Blood Pressure 164/79 H 02/05/22 14:39 Pulse Oximetry 98 02/05/22 14:39 Pulse 68 02/05/22 14:39 Respiratory Rate 18 02/05/22 14:39 Respiratory Effort Non-Labored 02/05/22 14:42 Blood Pressure 164/79 H 02/05/22 14:39 Blood Pressure Position Sitting 02/05/22 14:39 Pulse Oximetry 98 02/05/22 14:39 Oxygen Delivery Method Room Air 02/05/22 14:39 Oxygen Flow Rate 0 02/05/22 14:39
== END 2022-02-05 15:24 | disposition home or self-care (01) ==
PROVIDERS: Emergency Provider Physician Assistant; PCP Family Medicine
DX: S01.81XD Laceration without foreign body of other part of head, subsequent encounter (principal); X58.XXXD Exposure to other specified factors, subsequent encounter; Z48.02 Encounter for removal of sutures

== ENCOUNTER 2022-09-25 12:36 | Emergency (ER) | payer MEDICARE, SELFPAY ==
[2022-09-25 12:45] VITALS: BP 146/88; PULSE 78; RESP 18; TEMP 36.9; O2SAT 99
--- NOTE | 2022-09-25 13:04 | W.ED.GENAD ---
Discharge Plan Discharge Details Chief Complaint: Orthopedic Primary Care Provider: Jose Eduardo Barboza ED Provider: Pito Nieves Home Meds and New Rx's Prescriptions: No Action bupropion HCl 100 mg tablet sustained-release 12 hr 200 mg PO BID Qty: 120 2RF folic acid 1 mg tablet 1 mg PO DAILY Qty: 90 3RF albuterol sulfate 90 mcg/actuation aerosol powdr breath activated 2 inh inhalation Q6H PRN olanzapine [Zyprexa] 7.5 mg tablet 7.5 mg PO QHS mirtazapine 15 mg tablet 45 mg PO HS polyethylene glycol 3350 17 gram powder in packet 17 g PO DAILY Patient Comments: 17g daily in 8oz fluid sennosides-docusate sodium 8.6-50 mg tablet 2 tab-cap PO BID thiamine HCl (vitamin B1) 100 mg tablet 100 mg PO DAILY lorazepam [Ativan] 2 mg tablet 1 mg PO TID Qty: 90 2RF tamsulosin 0.4 mg capsule 0.4 mg PO DAILY Qty: 90 3RF melatonin 3 mg Tablet 3 mg PO HS Medical Decision Making Atraumatic left foot pain. The clinical is suspicious for planta fasciitis. At this time I explained to the patient and his that I do not believe an x-ray is required. Been instructed on taking Tylenol and or Motrin for the pain and may be getting an insole at the pharmacy. He will follow-up with his PCP within the next week. HPI General Date/Time Provider Initiated Documentation: 09/25/22 13:04. HPI Narrative: 71-year-old male presented to the emergency room with ongoing and worsening left shoulder pain that started he thinks on Wednesday. He first noticed it while being at a ball game. The only exercise out of the normal that he did was he went on a fishing day on Father's Day. He remembers walking overall and even [place] at that point. Does not recall hurting himself. No fall he did not twist his feet. The pain is at the midfoot. Worse with touching and walking. Related Data Home Medications Medication Instructions Recorded Confirmed melatonin 3 mg tablet 3 mg PO HS 11/23/20 09/15/22 mirtazapine 15 mg tablet 45 mg PO HS 10/22/21 09/15/22 polyethylene glycol 3350 17 gram 17 g PO DAILY 10/22/21 02/05/22 oral powder packet sennosides 8.6 mg-docusate sodium 2 tab-cap PO BID 10/22/21 02/05/22 50 mg tablet thiamine HCl (vitamin B1) 100 mg 100 mg PO DAILY 10/22/21 09/15/22 tablet bupropion HCl 100 mg tablet,12 hr 200 mg PO BID #120 tabs 12/04/21 09/15/22 sustained-release folic acid 1 mg tablet 1 mg PO DAILY #90 tabs 12/04/21 09/15/22 albuterol sulfate 90 mcg/actuation 2 inh inhalation Q6H PRN 12/31/21 02/05/22 breath activated powder inhaler olanzapine 7.5 mg tablet (Zyprexa) 7.5 mg PO QHS 12/31/21 09/15/22 lorazepam 2 mg tablet (Ativan) 1 mg PO TID #90 tabs 09/15/22 09/15/22 tamsulosin 0.4 mg capsule 0.4 mg PO DAILY #90 caps 09/15/22 09/15/22 Previous Rx's Medication Instructions Recorded bupropion HCl 100 mg tablet,12 hr 200 mg PO BID #120 tabs 12/04/21 sustained-release folic acid 1 mg tablet 1 mg PO DAILY #90 tabs 12/04/21 lorazepam 2 mg tablet (Ativan) 1 mg PO TID #90 tabs 09/15/22 tamsulosin 0.4 mg capsule 0.4 mg PO DAILY #90 caps 09/15/22 Allergies Allergy/AdvReac Type Severity Reaction Status Date / Time bee pollen Allergy Severe swelling Verified 09/15/22 13:21 General Stated Complaint: Orthopedic SALINA: 4 Review of Systems Narrative: 10 point review of system is negative unless otherwise specified in the HPI PFSH All Active Problems (Updated 09/15/22 @ 14:31 by Jose Eduardo Barboza MD) Dizziness (Acute) Cognitive impairment (Acute) Parkinsonian features (Acute) Pneumonia (Acute) Hard of hearing (Chronic) refuses to wear hearing aids Health care proxy on file (Chronic) , Sisi Shepherd daughter, Monica El, back-up DNI (do not intubate) (Acute) DNR (do not resuscitate) (Acute) POLST (Physician Orders for Life-Sustaining Treatment) (Acute) Vaccine counseling (Acute) Dementia (Chronic) Incontinence of bowel (Acute) Incontinence of urine (Acute) Frequent falls (Acute) Carotid stenosis (Acute) Acute kidney injury (Acute) DVT prophylaxis (Acute) Exposure to excessive natural heat (Acute) Atrial flutter by electrocardiogram (Acute) Medically noncompliant (Acute) Confusion (Acute) Taking multiple medications for chronic disease (Acute) Ambulatory dysfunction (Acute) Bipolar disorder (Chronic) diagnosed in 1992 mood swings all his life Leg cramps (Acute) Neural hearing loss, bilateral (Acute) Nasal turbinate hypertrophy (Acute) Congenital nasal septum deviation (Acute) Orthopnea (Acute) Breathlessness (Acute) Low back pain (Acute) Sleep disorder (Acute) Nasal obstruction (Acute) Diverticula of colon (Acute) Tremor (Acute 06/14/17) Paralysis agitans (Acute) Lynn (Acute 01/06/17) Bipolar 1 disorder (Chronic 07/29/15) Persistent mood disorder (Chronic) a lot of contributing stressors Essential hypertension (Chronic) Medical History (Updated 09/15/22 @ 14:31 by Jose Eduardo Barboza MD) Bipolar disorder, current episode manic severe with psychotic features Hyperlipidemia, unspecified Palliative care patient Surgical History History of colonoscopy History of orchiectomy, unilateral left Family History Mother , 73 of her chronic lung disease Depression Asthma Bipolar 1 disorder Chronic lung disease Father , age 61 from heart failure Kidney malignancy Heart disease Hyperlipidemia Hypertension Sister No problems noted. Sister No problems noted. Sister Heart disease Hyperlipidemia Hypertension Sister No problems noted. Sister No problems noted. Brother Heart disease Brother , age 48 fro Sudden Cardiac Heart disease Hyperlipidemia Hypertension Maternal Grandfather , 64 Heart disease Hyperlipidemia Hypertension Paternal Grandfather , 56 Heart disease Hyperlipidemia Hypertension Maternal Grandmother , 70 Asthma Stroke Paternal Grandmother , 80 No problems noted. Son No problems noted. Daughter No problems noted. Social History Smoking/Tobacco Use Status: Former Tobacco Use Quit Date: 08/03/18 Quit status: has quit before Smoking risk assessment performed?: Yes Alcohol Intake: never Drug use: Never Substance use type: does not use Caregiver/Support person: Yes () Household members: spouse Housing: other Details: camper when in [place]; friend's trailer in [facility] Number of Children: 2 number of grandchildren: 5 Communication Needs: Corrective Lenses Education Level: high school Do you need help understanding health information?: Always current occupation: retired from [employer] Pets and animals: Yes Pets and animals: dog(s) Sexually active: Yes Do you think of yourself as: straight/heterosexual Current gender identity: male What is your relationship status?: How often do you talk on the phone with friends or family?: once per week How often do you get together with friends or relatives?: twice per week How often do you attend denominational or latter-day services?: 4 or more times per year Do you belong to any clubs or organized social groups?: no Panel score (0-1 are the most socially isolated patients): 3 What type of physical activity do you participate in: walking Duration: 15-30 minutes/day Frequency: does not exercise Eloisa/Anabaptism: Evangelical Special eloisa needs: No Agree to transfusion: No Seatbelt use: always Working smoke detector in home: Yes Fire extinguisher in home: Yes Do you feel safe at home: Yes Do you feel safe in your relationship?: Yes Additional Social history: is his caregiver. They live in a camper during the summer at [facility] and stay for free at a friend's trailer in [facility] during the winter. Met at daughter's house in [facility] where they frequently go for meals, socializing, etc. He has hearing aids he refuses to wear. Neither Sebas nor vaccinated against COVID 19. Limits ability to go to [facility] or be considered for placement at community care homes. No savings to pay for LTC. Not on Choices for care yet. Discussed planning. Filled out COLST and health care agent paperwork. Exam Narrative Exam Narrative: General: A,A Ox3, Calm, no apparent distress, well developed, pleasant and cooperative Head Size/Shape: normocephalic, atraumatic Respiratory Effort: no dyspnea Auscultation: clear to auscultation bilaterally, normal breath sounds, no wheezing, no rales/crackles Cardiovascular Normal cap refill Joints, Bones, and Muscles: no deformities, there is discomfort to palpation of the left sole at the midfoot. No signs skin break. Extremities: warm and well-perfused, no cyanosis, capillary refill <2 seconds Skin Skin Inspection: no rash, no lesions, no bruising Neurological Motor: normal tone, normal strength, moving all extremities equally Psychiatric: good insight, good judgement, normal mood and affect Course Vital Signs Vital signs: Vital Signs Temperature 36.9 C 09/25/22 12:45 Pulse 78 09/25/22 12:45 Respiratory Rate 18 09/25/22 12:45 Blood Pressure 146/88 H 09/25/22 12:45 Pulse Oximetry 99 09/25/22 12:45 Temperature 36.9 C 09/25/22 12:45 Temperature Source Oral 09/25/22 12:45 Pulse 78 09/25/22 12:45 Respiratory Rate 18 09/25/22 12:45 Blood Pressure 146/88 H 09/25/22 12:45 Blood Pressure Position Sitting 09/25/22 12:45 Pulse Oximetry 99 09/25/22 12:45 Oxygen Delivery Method Room Air 09/25/22 12:45 Oxygen Flow Rate 0 09/25/22 12:45 Pain Level 9 09/25/22 12:45
== END 2022-09-25 13:25 | disposition home or self-care (01) ==
PROVIDERS: Emergency Provider Emergency Medicine; PCP Family Medicine
DX: M72.2 Plantar fascial fibromatosis (principal)
CPT/HCPCS: 99283